=== PATIENT | female | born 1945 | race Caucasian/White ===

== ENCOUNTER → 2019-07-30 12:11 | Outpatient (CLI) | payer OTHER, SELFPAY ==
--- NOTE | ~2019-07-30 | XR_ITS ---
EXAMINATION: XR chest 2V DATE: 07/30/2019 12:37 INDICATION: Cough, COPD TECHNIQUE: Frontal and lateral views of the chest are obtained COMPARISON: 01/20/2017 FINDINGS: There are airspace opacities of the lower lung zones and right midlung zone. There is no pl eural effusion or pneumothorax. The cardiomediastinal silhouette is normal. There is moderate thoraci c spondylosis. The lungs are hyperinflated. IMPRESSION: 1. Airspace opacities of the lung bases and right midlung zone, likely pneumonia. Reviewed, dictated and finalized at location A. IMPRESSION: 1. Airspace opacities of the lung bases and right midlung zone, likely pneumoni a.
== END ==
PROVIDERS: PCP Family Medicine Adolescent Medicine; Visit Provider Internal Medicine Critical Care Medicine
DX: J44.9 Chronic obstructive pulmonary disease, unspecified (principal); R91.8 Other nonspecific abnormal finding of lung field
CPT/HCPCS: 71046

== ENCOUNTER 2019-09-28 13:27 | Inpatient (IN) | payer OTHER, SELFPAY ==
[2019-09-28] VITALS (14 sets, daily range): BP systolic 123–152; BP diastolic 61–87; PULSE 81–96; RESP 18–24; TEMP 37.9–39.2; O2SAT 91–100; BMI 22.1
--- NOTE | ~2019-09-28 | XR_ITS ---
XR chest 1V portable 09/28/2019 14:06 Indication: Weakness. Dyspnea. Procedure: AP portable chest Comparison: Comparison to multiple prior studies sequentially, with oldest reviewed study dated 12/2014. Findings: Borderline heart size. There is chronic scarring of the right mid and lower lung. There are emphysematous changes. No acute focal pneumonia, edema or effusion. No pneumothorax. Impression: 1: No acute cardiopulmonary disease. 2: Emphysema. Reviewed, dictated and finalized at location A. Impression: 1: No acute cardiopulmonary disease. 2: Emphysema.
--- NOTE | 2019-09-28 13:28 | ECG_ITS ---
Measurements Intervals [place] Rate: 93 P: 71 TN: 134 QRS: -40 QRSD: 107 T: 42 QT: 393 QTc: 490 Interpretive Statements SINUS RHYTHM LEFT AXIS DEVIATION CANNOT RULE OUT SEPTAL INFARCT, AGE INDETERMINATE BASELINE ARTIFACT- I, II, AVR, AVL, V1-V6 ABNORMAL ECG Electronically Signed On 09-28-2019 15:25:43 CDT by Michael Mercer D.O.
--- NOTE | 2019-09-28 13:50 | ED.WEAKNESS ---
HPI - Weakness General Chief complaint: Weakness Stated complaint: covid + weakness Time Seen by Provider: 09/28/19 13:44 History of Present Illness HPI Narrative: 74 yo female w/ h/o COPD and know COVID-19 infection presents for SOB. Her is currently hospitalized with COVID-19 so she had outpatient testing done. she was asymptomatic at that time. Over the past day she has become SOB more than baseline and developed a fever. She is not in any distress, but she is concerned that she will be in danger if her synptoms worsen. She is on O2 at 2L by PR at baseline. Related Data Home Medications Medication Instructions Recorded Confirmed Calcium 600 + D(3) 1 cap PO HS 05/10/19 09/28/19 albuterol sulfate 2 puff INHALATION QID PRN 05/10/19 09/28/19 amlodipine [Norvasc] 10 mg PO DAILY 05/10/19 09/28/19 fluticasone propion-salmeterol 1 inh INHALATION Q12H 05/10/19 09/28/19 [Advair Diskus] montelukast [Singulair] 10 mg PO HS 05/10/19 09/28/19 tamoxifen 20 mg PO DAILY 05/10/19 09/28/19 Spiriva with HandiHaler 18 mcg INHALATION DAILY 09/28/19 09/28/19 Allergies Allergy/AdvReac Type Severity Reaction Status Date / Time Sulfa (Sulfonamide Allergy Severe INTERNAL Verified 09/28/19 16:07 Antibiotics) BURNING Review of Systems Review of Systems: All systems reviewed & are unremarkable except as noted in HPI and below Constitutional: Constitutional: Reports fever(s) and Denies weakness ENT: Denies sore throat Cardiovascular: Cardiovascular: Denies chest pain Respiratory: Respiratory: Reports cough, Reports dyspnea and Reports wheezing Gastrointestinal: Gastrointestinal: Denies abdominal pain, Denies nausea and Denies vomiting Genitourinary: Genitourinary: Denies dysuria Neurologic: Denies dizziness and Denies weakness [facility] Past Medical History Medical History Anxiety Breast cancer Left breast 2017 treated with radiation therapy Chronic respiratory failure with hypoxia and hypercapnia Chronic home O2 of 2.5 L COPD (chronic obstructive pulmonary disease) With PFTs in 2003 demonstrating severe obstructive ventilatory defect with acute bronchodilator response Essential hypertension Glaucoma Urinary, incontinence, stress female Surgical History Surgical History History of partial mastectomy of left breast July 2016 Previous section Status post cataract extraction of both eyes with insertion of intraocular lens Family History Family History Sibling COPD (chronic obstructive pulmonary disease) The patient's younger sister is from lung cancer and COPD Cirrhosis Patient's younger brother is of unspecified cancer but also has cirrhosis. Father , In his 80s Arthritis Hardening of the arteries of the heart Mother , In her 80s Hypertension Hardening of the arteries of the heart Social History Social History Social History: Primary care physician: Dr. Jovanny Akins Code status: Modified code no CPR per patient request. She states that if her heart were to stop she is rated go be with God. The patient is okay with a trial of intubation and ventilator support. She is uncertain if she would want tracheostomy. Smoking packs per day: 1.5 Smoking cigarettes per day: 30.0 Years smoked: 40 Smoking pack-years: 60.00 Smoking status: Former smoker Tobacco type: cigarettes Additional smoking assessment comments: She quit smoking around 1999. Alcohol intake: never Substance use: never Living arrangements: with family Additional living arrangements comments: She lives with her of 43 years and 1 of her adult sons. 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 Zoe
[2019-09-28 14:03] LABS: Basophils Percent Auto 0.1 % (0.2-1.2); Hematocrit 38.9 % (37.0-47.0); Hemoglobin 12.2 g/dL (12.0-15.0); Immature Granulocyte Absolute 0.02 K/mm3 (0.00-0.031); Immature Granulocyte Percent A 0.2 % (0-0.5); Immature Platelet Fraction Pct 2.6 % (0.9-11.2); Lymphocytes Percent Auto 3.2 % (18.3-44.2); Mean Corpuscular HGB Conc 31.4 g/dl (32-36); Mean Corpuscular Hemoglobin 29.7 pg (26-34); Mean Corpuscular Volume 94.6 fl (80-100); Mean Platelet Volume 9.8 fl (7.4-10.4); Monocytes Absolute Auto 0.5 K/mm3 (0.1-0.6); Monocytes Percent Auto 5.7 % (2.6-8.5); Neutrophils Absolute Auto 8.6 K/mm3 (1.3-6.7); Neutrophils Percent Auto 90.8 % (45.5-73.1); Platelet Count Result 109 k/mm3 (150-375); Red Blood Count 4.11 M/mm3 (4.2-5.4); Red Cell Distribution Width 13.7 % (11.5-14.5); White Blood Count 9.5 K/mm3 (4.5-10.0)
[2019-09-28 14:11] LABS: Add Urine Microscopic? YES; Appearance Urine Clear (Clear); Bilirubin Urine Negative (Negative); Blood Urine 1+ (Negative); Color Urine Straw (Yellow); Glucose Urine UA Negative (Negative); Ketones Urine Trace mg/dL (Negative); Leukocyte Esterase Ur Negative LEU/UL (Negative); Nitrate Urine Negative (Negative); Protein Urine Negative (Negative); Specific Grav Ur 1.015 (1.001-1.035); Squamous Epithelial Cell Urine Rare /hpf (Few); Urobilinogen Urine Negative mg/dL (<2.0); WBC Urine 0-3 /hpf
[2019-09-28 14:12] LABS: INR 0.9; Prothrombin Time 12.1 Seconds (11.1-14.7)
[2019-09-28 14:13] LABS: Partial Thromboplastin Time 26.5 SECONDS (22.3-36.8)
[2019-09-28 14:20] LABS: Lactic Acid Reflex 0.8 mmol/L (0.7-2.1)
[2019-09-28 14:22] LABS: Alanine Aminotransferase 17 U/L (4-35); Albumin Level 4.1 g/dL (3.5-5.1); Alkaline Phosphatase 53 U/L (38-126); Aspartate Amino Transferase 30 U/L (14-36); Bilirubin,Total 0.2 mg/dL (0.2-1.3); Blood Urea Nitrogen 10 mg/dL (7-17); CRP 2.9 mg/dL (<1.0); Calcium 8.4 mg/dL (8.4-10.2); Carbon Dioxide 38 mmol/L (22-30); Chloride 94 mmol/L (98-107); Estimated CRCL calculation 74 ml/min; Estimated Glomerular Filt Rate > 60; Glucose 113 mg/dL (65-105); Potassium 3.5 mmol/L (3.4-5.0); Sodium 135 mmol/L (137-145)
[2019-09-28 14:54] LABS: D Dimer 1.08 ug/mL (<0.48)
[2019-09-28 14:56] LABS: CRP 2.9 mg/dL (<1.0)
--- NOTE | 2019-09-28 16:52 | ADMGEN ---
This patient, Ritu Liao, was admitted to 3 Med Surg Room 331-01. Patient/family oriented to hospital policies and general routines including ID bracelet, bed and alarms, visiting hours, pain management, procedures, bathroom and other care routines, personal items, smoking policy, room service/diet, and visiting hours. Valuables list has been completed. Information on how to activate the Rapid Response Team has been discussed. Patient/Family are encouraged to report perceived risks to care and to ask questions if they do not understand what they are told or what they should do.
[2019-09-28] MEDS: ACETAMINOPHEN 325 MG TABLET 650 MG PO ×2 (17:28→21:44)
[2019-09-28] MEDS: MONTELUKAST SODIUM 10 MG TABLET PO (21:56)
[2019-09-29] VITALS (17 sets, daily range): BP systolic 121–142; BP diastolic 58–70; PULSE 74–88; RESP 18–20; TEMP 37.2–38.1; O2SAT 93–99
--- NOTE | 2019-09-29 04:13 | PM.IMHP ---
H&P: HPI History of Present Illness Chief complaint: Fever, COVID-19 infection Narrative: From date and time of patient contact 09/29/2019 at 2:15 a.m. Ritu Liao is a 74 year old female with a past medical history of COPD with chronic home O2 of 2.5 L and known positive COVID-19 testing on 09/25/2019 who presented to the ER via EMS on 09/28/2019 due to increasing weakness, shortness of breath and fever. The patient reports her fever has been as high as 102 at home and her temperature was a 102.5? when she arrived to the ER. The patient's had been sick for 10 days with upper respiratory symptoms and had tested positive for COVID-19 on 09/20/2019. The patient reports to me that she does a positive herself on 09/25/2019. The patient's had reported to me had a time had it his admission that he had been concerned his had infection starting at 3 or 4 days after his symptoms. He had reported that her symptoms were fairly mild and she was not having much increased work of breathing and had not been spiking fevers. Unfortunately the patient's was admitted to hospital on 09/27/2019 for COVID-19 and it sounds as if he is the patient's main support. The patient reported that after her was admitted to the hospital she actually started spiking fevers that night. It sounds as if she has a cough that is chronically productive of sputum. But her sputum is currently dark green in color. It is unclear when the patient sputum changed color as the patient keeps mentioning when she was ill back in June. She has noticed increased work of breathing over the last 24-48 hours. She has been having intermittent body aches. She denies any change in the sensation of taste or smell. She has not had any nausea or vomiting. She has had a significant decrease in appetite. She denies any diarrhea. She has been having stress urinary incontinence due to her significant increase in cough. She denies any chest pain. She is becoming more short of breath both at rest and with activity. The patient reports that she has not had increased her home oxygen of 2.5 L. She has been on home oxygen therapy for 20 years. Review of Systems Review of Systems: Narrative: 12 systems were reviewed with pertinent positives and negatives per HPI. Except as documented in the HPI, all other systems were reviewed and are negative. FOR[facility]LY [facility], [facility] Past Medical History Medical History (Updated 09/29/19 @ 04:28 by Magda Harkins DO) Anxiety Breast cancer Left breast 2016 treated with radiation therapy Chronic respiratory failure with hypoxia and hypercapnia Chronic home O2 of 2.5 L COPD (chronic obstructive pulmonary disease) With PFTs in 2003 demonstrating severe obstructive ventilatory defect with acute bronchodilator response Essential hypertension Glaucoma Urinary, incontinence, stress female Surgical History Surgical History (Updated 09/29/19 @ 04:28 by Magda Harkins DO) History of partial mastectomy of left breast July 2016 Previous section Status post cataract extraction of both eyes with insertion of intraocular lens Family History Family History (Updated 09/29/19 @ 04:55 by Magda Harkins DO) Sibling COPD (chronic obstructive pulmonary disease) The patient's younger sister is from lung cancer and COPD Cirrhosis Patient's younger brother is of unspecified cancer but also has cirrhosis. Father , In his 80s Arthritis Hardening of the arteries of the heart Mother , In her 80s Hypertension Hardening of the arteries of the heart Social History Social History (Updated 09/29/19 @ 04:56 by Magda Harkins DO) Social History: Primary care physician: Dr. Jovanny Akins Code status: Modified code no CPR per patient request. She states that if her heart were to stop she is rated go be with God. The patient is okay with a trial of intubation and vent
[2019-09-29 06:57] LABS: Hematocrit 33.3 % (37.0-47.0); Hemoglobin 10.5 g/dL (12.0-15.0); Mean Corpuscular HGB Conc 31.5 g/dl (32-36); Mean Corpuscular Hemoglobin 30.1 pg (26-34); Mean Corpuscular Volume 95.4 fl (80-100); Mean Platelet Volume 9.7 fl (7.4-10.4); Platelet Count Result 89 k/mm3 (150-375); Red Blood Count 3.49 M/mm3 (4.2-5.4); Red Cell Distribution Width 14.1 % (11.5-14.5); White Blood Count 7.5 K/mm3 (4.5-10.0)
[2019-09-29 07:25] LABS: Blood Urea Nitrogen 7 mg/dL (7-17); CRP 16.6 mg/dL (<1.0); Calcium 8.1 mg/dL (8.4-10.2); Carbon Dioxide 39 mmol/L (22-30); Chloride 96 mmol/L (98-107); Estimated CRCL calculation 71 ml/min; Estimated Glomerular Filt Rate > 60; Glucose 84 mg/dL (65-105); Lactate Dehydrogenase 308 U/L (313-618); Potassium 3.4 mmol/L (3.4-5.0); Sodium 135 mmol/L (137-145)
[2019-09-29] MEDS: AMLODIPINE BESYLATE 5 MG TABLET 10 MG PO (08:36)
[2019-09-29] MEDS: TAMOXIFEN CITRATE (*CHEMO) 10 MG TABLET 20 MG PO (08:36)
[2019-09-29] MEDS: ENOXAPARIN 40 MG/0.4 ML SYRINGE SUB-Q (08:37)
[2019-09-29] MEDS: ALBUTEROL SULFATE (*SP) AEROSOL 1 PUFF 6 PUFF INHALATION ×2 (09:45→13:07)
--- NOTE | 2019-09-29 13:47 | PM.CNPUL ---
Assessment and Plan Assessment and plan (1) COVID-19 virus infection: Code(s): U07.1 - COVID-19 Status: Acute Assessment and Plan: Unclear wether positive test is from infection in June or new infection from the past few weeks we now know that RT PCR can stay positive for many weeks after orginal infection. Nonetheless she is doing well and CXR has improved. She is on minimal oxygen. - continue supportive care and monitoring - if oxygen demand increase would encourage moving to negative pressure room in ICU - continue droplet precautions until SARS-CoV-2 is negative X 2 or discharged home in stable condition to self quarantine (2) COPD exacerbation: Code(s): J44.1 - Chronic obstructive pulmonary disease with (acute) exacerbation Status: Acute Assessment and Plan: - check sputum culture for superimposed bacterial infection - I agree with Spiriva and Advair at current doses - agree with avoid nebulized bronchodilators - I'm ok with starting Azithroymcin 500 mg daily for 5 days and Ceftriaxone 1 gm IV daily for 7 days while checking daily EKG - I've ordered daily EKGs for next four days. If any prolongation occurs beyond 500 ms, consider discontinuing Azithromycin - Will also start prednisone 20 mg PO OD for 5 days History of Present Illness History of Present Illness Consult date: 09/29/19 Chief complaint: Fever, COVID-19 infection Narrative: 74 y/o female with COPD who presents after getting a fever of up to 102 at home along with increased dyspnea, cough productive of greenish sputum and chills and finding out her tested positive for SARS-CoV-2 on 09/20/19. She tested positive on 09/27/19 and was admitted yesterday. Her son lives with her and he's had new cough as well but refused to get tested. She originally began to feel sick with cough, dyspnea, wheezing in late June. Her official court reporter order a CXR at the time on 07/30/19 which I viewed myself shows bilateral atypical infiltrates which have actually resolved on yesterdays' CXR actually. She said recovered from her incident in June by late July early August and only started to feel sick again in late August. Review of Systems Review of Systems: All systems reviewed & are unremarkable except as noted in HPI and below PMFSH Past Medical History Medical History (Updated 09/29/19 @ 04:28 by Magda Harkins DO) Anxiety Breast cancer Left breast 2016 treated with radiation therapy Chronic respiratory failure with hypoxia and hypercapnia Chronic home O2 of 2.5 L COPD (chronic obstructive pulmonary disease) With PFTs in 2003 demonstrating severe obstructive ventilatory defect with acute bronchodilator response Essential hypertension Glaucoma Urinary, incontinence, stress female Surgical History Surgical History (Updated 09/29/19 @ 04:28 by Magda Harkins DO) History of partial mastectomy of left breast July 2016 Previous section Status post cataract extraction of both eyes with insertion of intraocular lens Family History Family History (Updated 09/29/19 @ 04:55 by Magda Harkins DO) Sibling COPD (chronic obstructive pulmonary disease) The patient's younger sister is from lung cancer and COPD Cirrhosis Patient's younger brother is of unspecified cancer but also has cirrhosis. Father , In his 80s Arthritis Hardening of the arteries of the heart Mother , In her 80s Hypertension Hardening of the arteries of the heart Social History Social History (Updated 09/29/19 @ 04:56 by Magda Harkins DO) Social History: Primary care physician: Dr. Jovanny Akins Code status: Modified code no CPR per patient request. She states that if her heart were to stop she is rated go be with God. The patient is okay with a trial of intubation and ventilator support. She is uncertain if she would want tracheostomy. Smoking packs per day: 1.5 Smoking c
[2019-09-29] MEDS: predniSONE 20 MG TABLET PO (14:33)
--- NOTE | 2019-09-29 17:18 | PM.IMPN ---
Progress Note: A&P Assessment and Plan (1) COVID-19 virus infection: Code(s): U07.1 - COVID-19 Status: Acute Assessment and Plan: Patient is not a candidate for treatment with azithromycin. Her QTc is 490 Continue supportive care with oxygen and albuterol and Atrovent inhalers Continue Tylenol as needed for fever Air point/droplet precautions. 09/29/19 17:18 Patient is 6 Yo female with history of severe COPD patient presented with complaint of cough fever chills sees found to be positive for COVID-19 patient seen by information systems security officer started the patient on azithromycin and Rocephin possible superimposed bacterial infection with instruction to monitor QT interval well daily with EKG, if the due to enter well close to 500 will stop azithromycin, because of COVID-19 patient is not receiving neb treatment will continue home albuterol inhaler and low-dose of prednisone 20 mg q.day, the patient states is feeling better breathing is also better has any fever or chills currently, will continue to monitor and plan accordingly, in the weight patient is requiring high oxygen will transfer the patient to ICU Her is also hospitalized at this time. (2) COPD exacerbation: Code(s): J44.1 - Chronic obstructive pulmonary disease with (acute) exacerbation Status: Acute Assessment and Plan: Due to COVID-19 viral infection. Patient is not moving much air. Scheduled albuterol inhaler 6 puffs every 6 hours has been ordered as well as a Spiriva inhaler. Is the patient did not have COVID-19 I would like to start on steroid therapy. However and current recommendations are not clear. I will consult pulmonology for further recommendations as to treating COPD exacerbation in the setting of COVID-19. Patient was seen by information systems security officer plan is above Subjective Date/time seen: 09/29/19 17:18 Patient is 6 Yo female with history of severe COPD patient presented with complaint of cough fever chills sees found to be positive for COVID-19 patient seen by information systems security officer started the patient on azithromycin and Rocephin possible superimposed bacterial infection with instruction to monitor QT interval well daily with EKG, if the due to enter well close to 500 will stop azithromycin, because of COVID-19 patient is not receiving neb treatment will continue home albuterol inhaler and low-dose of prednisone 20 mg q.day, the patient states is feeling better breathing is also better has any fever or chills currently, will continue to monitor and plan accordingly, in the weight patient is requiring high oxygen will transfer the patient to ICU Review of Systems Review of Systems: All systems reviewed & are unremarkable except as noted in HPI and below Exam Narrative: Exam Narrative: Patient is comfortable patient was seen in the room but not examine temperature is 99.8? pulse is 83 respiratory is 20 pulse ox is 95% at 2.5 L nasal cannula blood pressure is 135/65 Const: General: comfortable and no acute distress HENMT: General nose exam: Normal nares present Eyes: Sclera: sclerae normal Neck: Other: No retraction Resp: Effort & Inspection: normal respiratory effort GI: Other: Not distant Skin: General skin exam: normal color Neuro: Speech: normal speech Extrem: General: normal to inspection Psych: Affect: Anxious affect present Objective Data Vital Signs Vital Signs: Vital Signs - 24 hr 09/28/19 17:28 09/28/19 18:28 09/28/19 19:30 Temperature 100.4 F H 101.2 F H Pulse Rate Respiratory Rate 24 H Blood Pressure Pulse Oximetry 92 09/28/19 20:00 09/28/19 21:27 09/28/19 21:44 Temperature 100.7 F H Pulse Rate 87 86 Respiratory Rate Blood Pressure Pulse Oximetry 92 09/28/19 21:49 09/28/19 22:44 09/29/19 00:00 Temperature 100.3 F H 100.4 F H Pulse Rate 86 78 Respiratory Rate 20 Blood Pressure 138/84 Pulse Oximetry 92 09/29/19 02:00 09/29/19 04:00 09/29/19 06:0
[2019-09-29] MEDS: ACETAMINOPHEN 325 MG TABLET 650 MG PO (18:36)
[2019-09-29] MEDS: MONTELUKAST SODIUM 10 MG TABLET PO (20:15)
[2019-09-29] MEDS: ALBUTEROL SULFATE (*SP) INHALER 1 PUFF (21:18)
[2019-09-30] VITALS (12 sets, daily range): BP systolic 110–127; BP diastolic 51–74; PULSE 63–80; RESP 16–20; TEMP 36.5–37.1; O2SAT 95–99
[2019-09-30 06:26] LABS: Basophils Percent Auto 0.2 % (0.2-1.2); Hematocrit 34.4 % (37.0-47.0); Hemoglobin 10.8 g/dL (12.0-15.0); Immature Granulocyte Absolute 0.07 K/mm3 (0.00-0.031); Immature Granulocyte Percent A 1.1 % (0-0.5); Lymphocytes Absolute Auto 0.59 K/mm3 (0.9-3.2); Lymphocytes Percent Auto 8.9 % (18.3-44.2); Mean Corpuscular HGB Conc 31.4 g/dl (32-36); Mean Corpuscular Volume 95.6 fl (80-100); Mean Platelet Volume 9.7 fl (7.4-10.4); Monocytes Absolute Auto 0.3 K/mm3 (0.1-0.6); Monocytes Percent Auto 5.1 % (2.6-8.5); Neutrophils Absolute Auto 5.6 K/mm3 (1.3-6.7); Neutrophils Percent Auto 84.7 % (45.5-73.1); Platelet Count Result 95 k/mm3 (150-375); White Blood Count 6.6 K/mm3 (4.5-10.0)
[2019-09-30 07:26] LABS: Alanine Aminotransferase 12 U/L (4-35); Alkaline Phosphatase 44 U/L (38-126); Aspartate Amino Transferase 21 U/L (14-36); Bilirubin,Total 0.1 mg/dL (0.2-1.3); Blood Urea Nitrogen 10 mg/dL (7-17); CRP 21.8 mg/dL (<1.0); Calcium 8.3 mg/dL (8.4-10.2); Carbon Dioxide > 40 mmol/L (22-30); Chloride 95 mmol/L (98-107); Estimated CRCL calculation 71 ml/min; Estimated Glomerular Filt Rate > 60; Glucose 87 mg/dL (65-105); Potassium 3.3 mmol/L (3.4-5.0); Sodium 138 mmol/L (137-145)
--- NOTE | 2019-09-30 08:00 | ECG_ITS ---
Measurements Intervals [place] Rate: 80 P: 75 RI: 137 QRS: 13 QRSD: 97 T: 38 QT: 368 QTc: 426 Interpretive Statements SINUS RHYTHM CANNOT RULE OUT SEPTAL INFARCT, AGE INDETERMINATE BASELINE ARTIFACT- I, II, AVR, AVL, AVF, V1-V4 ABNORMAL ECG Electronically Signed On 09-30-2019 17:46:15 CDT by Michael Mercer D.O.
[2019-09-30] MEDS: POTASSIUM CHLORIDE 20 MEQ TABLET 40 MEQ PO (09:01)
[2019-09-30] MEDS: AMLODIPINE BESYLATE 5 MG TABLET 10 MG PO (09:02)
[2019-09-30] MEDS: predniSONE 20 MG TABLET PO (09:03)
[2019-09-30] MEDS: TAMOXIFEN CITRATE (*CHEMO) 10 MG TABLET 20 MG PO (09:03)
--- NOTE | 2019-09-30 17:53 | PM.PNPUL ---
Progress Note: A&P Assessment and Plan (1) COVID-19 virus infection: Code(s): U07.1 - COVID-19 Status: Acute Assessment and Plan: Unclear wether positive test is from infection in June or new infection from the past few weeks we now know that RT PCR can stay positive for many weeks after orginal infection. Nonetheless she is doing well and CXR has improved. She is on minimal oxygen 2.5 L/min which is what she uses at home. - continue supportive care and monitoring - if oxygen demand increase would encourage moving to negative pressure room in ICU - continue droplet precautions until SARS-CoV-2 is negative X 2 or discharged home in stable condition to self quarantine (2) COPD exacerbation: Code(s): J44.1 - Chronic obstructive pulmonary disease with (acute) exacerbation Status: Acute Assessment and Plan: - check sputum culture for superimposed bacterial infection - I agree with Spiriva and Advair at current doses - agree with avoid nebulized bronchodilators - She is on Azithroymcin 500 mg daily for 5 days and Ceftriaxone 1 gm IV daily for 7 days while checking daily EKG - She has daily EKGs for four days. If any prolongation occurs beyond 500 ms, consider discontinuing Azithromycin - She is also on prednisone 20 mg PO daily for 5 days Subjective Date/time seen: 09/30/19 17:53 This 74 yo female is seen in follow up for COPD exacerbation and a (+) COVID test which may reflect prolonged positive test results from her infection in June. She was sick in Jun with a CXR showing bilateral infiltrates. Her COVID test was September 24 at [facility] in [place] while she was asymptomatic, and she wanted to be tested as her was sick. She is coughing with yellow sputum. She says that she has decreased the amount of secretions today, and does not think that she needs a COrnet valve to use here. She has an Acapella at home. Review of Systems Review of Systems: All systems reviewed & are unremarkable except as noted in HPI and below Exam Const: General: comfortable and no acute distress Eyes: General: appearance normal, both eyes and all related structures Neck: Neck: supple and no JVD Chest: Chest palpation & inspection: other (hyperinflated) Resp: Auscultation: no crackles, no rhonchi, no wheezes and diminished lung sounds Cardio: Rate: regular rate Rhythm: regular rhythm Heart sounds: no murmurs GI: Auscultation: normal bowel sounds Skin: General skin exam: normal color and no rashes or lesions noted Neuro: Speech: normal speech Extrem: General: normal to inspection, no edema and no pedal edema Psych: Mental Status: mental status grossly normal Affect: normal affect Objective Data Vital Signs Vital Signs: Vital Signs - 24 hr 09/29/19 18:00 09/29/19 18:36 09/29/19 19:36 Temperature 38.1 C H 38.1 C H 37.2 C Pulse Rate 82 Respiratory Rate 18 Blood Pressure 121/58 L Pulse Oximetry 93 09/29/19 20:00 09/29/19 21:17 09/29/19 22:00 Temperature 37.2 C Pulse Rate 79 82 Respiratory Rate 20 Blood Pressure 126/70 Pulse Oximetry 95 93 09/30/19 00:00 09/30/19 02:00 09/30/19 04:00 Temperature 36.8 C Pulse Rate 63 75 63 Respiratory Rate 20 Blood Pressure 124/65 Pulse Oximetry 95 09/30/19 06:00 09/30/19 08:00 09/30/19 10:00 Temperature 36.9 C 37.1 C Pulse Rate 68 67 77 Respiratory Rate 20 18 Blood Pressure 123/62 126/74 Pulse Oximetry 98 99 09/30/19 12:00 09/30/19 14:00 09/30/19 16:00 Temperature 37.1 C Pulse Rate 77 80 77 Respiratory Rate 18 Blood Pressure 127/59 L Pulse Oximetry 98 Intake/Output Intake/Output: Intake & Output 09/27/19 09/28/19 09/29/19 09/30/19 23:59 23:59 23:59 23:59 Intake Total 200 1590 1290 Output Total 1500 800 Balance 200 90 490 Meds/Results Medications: Active Medications Generic Name Dose Route Start Last Admin Trade Name Freq PRN Reason Stop Dose Admin Acetaminophen 650
--- NOTE | 2019-09-30 18:33 | PM.IMPN ---
Progress Note: A&P Assessment and Plan (1) COVID-19 virus infection: Code(s): U07.1 - COVID-19 Status: Acute Assessment and Plan: Patient is not a candidate for treatment with azithromycin. Her QTc is 490 Continue supportive care with oxygen and albuterol and Atrovent inhalers Continue Tylenol as needed for fever Air point/droplet precautions. 09/29/19 17:18 09/30/19 18:33 Patient is 6 Yo female with history of severe COPD patient presented with complaint of cough fever chills shes found to be positive for COVID-19 patient seen by manager food started the patient on azithromycin and Rocephin possible superimposed bacterial infection with instruction to monitor QT interval well daily with EKG, if the qt interval well close to 500 will stop azithromycin, because of COVID-19 patient is not receiving neb treatment will continue home albuterol inhaler and low-dose of prednisone 20 mg q.day, the patient states is feeling better breathing is also better has any fever or chills currently, will continue to monitor and plan accordingly, in the weight patient is requiring high oxygen will transfer the patient to ICU, currently patient is not requiring any more oxygen than she has been 2.5 L. Her is also hospitalized at this time. (2) COPD exacerbation: Code(s): J44.1 - Chronic obstructive pulmonary disease with (acute) exacerbation Status: Acute Assessment and Plan: Due to COVID-19 viral infection. Patient is not moving much air. Scheduled albuterol inhaler 6 puffs every 6 hours has been ordered as well as a Spiriva inhaler. Is the patient did not have COVID-19 I would like to start on steroid therapy. However and current recommendations are not clear. I will consult pulmonology for further recommendations as to treating COPD exacerbation in the setting of COVID-19. Patient was seen by manager food plan is above Subjective Date/time seen: 09/30/19 18:33 Patient is 6 Yo female with history of severe COPD patient presented with complaint of cough fever chills shes found to be positive for COVID-19 patient seen by manager food started the patient on azithromycin and Rocephin possible superimposed bacterial infection with instruction to monitor QT interval well daily with EKG, if the qt interval well close to 500 will stop azithromycin, because of COVID-19 patient is not receiving neb treatment will continue home albuterol inhaler and low-dose of prednisone 20 mg q.day, the patient states is feeling better breathing is also better has any fever or chills currently, will continue to monitor and plan accordingly, in the weight patient is requiring high oxygen will transfer the patient to ICU, currently patient is not requiring any more oxygen than she has been 2.5 L. Her is also hospitalized at this time. Review of Systems Review of Systems: All systems reviewed & are unremarkable except as noted in HPI and below Exam Narrative: Exam Narrative: Patient is comfortable patient was seen in the room but not examine temperature is 98.6 pulse is 77 respiratory is 18 pulse ox is 98% at 2.5 L nasal cannula blood pressure is 110/51 Const: General: comfortable and no acute distress HENMT: General nose exam: Normal nares present Eyes: Sclera: sclerae normal Neck: Other: No retraction Resp: Effort & Inspection: normal respiratory effort GI: Other: Not distant Skin: General skin exam: normal color Neuro: Speech: normal speech Extrem: General: normal to inspection Psych: Affect: Anxious affect present Objective Data Vital Signs Vital Signs: Vital Signs - 24 hr 09/29/19 18:36 09/29/19 19:36 09/29/19 20:00 Temperature 100.5 F H 98.9 F Pulse Rate 79 Respiratory Rate Blood Pressure Pulse Oximetry 09/29/19 21:17 09/29/19 22:00 09/30/19 00:00 Temperature 98.9 F Pulse Rate 82 63 Respiratory Rate 20 Blood Pressure 126/70 Pulse Oximetry 95 93 06
[2019-09-30] MEDS: MONTELUKAST SODIUM 10 MG TABLET PO (20:19)
[2019-10-01] VITALS (14 sets, daily range): BP systolic 121–144; BP diastolic 60–76; PULSE 63–81; RESP 18–20; TEMP 36.6–37.4; O2SAT 94–100
[2019-10-01 06:11] LABS: Basophils Percent Auto 0.2 % (0.2-1.2); Hematocrit 33.9 % (37.0-47.0); Hemoglobin 10.6 g/dL (12.0-15.0); Immature Granulocyte Absolute 0.02 K/mm3 (0.00-0.031); Immature Granulocyte Percent A 0.4 % (0-0.5); Lymphocytes Absolute Auto 0.64 K/mm3 (0.9-3.2); Lymphocytes Percent Auto 13.3 % (18.3-44.2); Mean Corpuscular HGB Conc 31.3 g/dl (32-36); Mean Platelet Volume 9.9 fl (7.4-10.4); Monocytes Absolute Auto 0.3 K/mm3 (0.1-0.6); Monocytes Percent Auto 5.4 % (2.6-8.5); Neutrophils Absolute Auto 3.9 K/mm3 (1.3-6.7); Neutrophils Percent Auto 80.7 % (45.5-73.1); Platelet Count Result 110 k/mm3 (150-375); Red Blood Count 3.53 M/mm3 (4.2-5.4); Red Cell Distribution Width 14.1 % (11.5-14.5); White Blood Count 4.8 K/mm3 (4.5-10.0)
[2019-10-01] MEDS: ACETAMINOPHEN 325 MG TABLET 650 MG PO ×2 (06:21→14:39)
[2019-10-01 06:37] LABS: Alanine Aminotransferase 12 U/L (4-35); Alkaline Phosphatase 47 U/L (38-126); Aspartate Amino Transferase 20 U/L (14-36); Bilirubin,Total < 0.1 mg/dL (0.2-1.3); Blood Urea Nitrogen 9 mg/dL (7-17); Calcium 8.4 mg/dL (8.4-10.2); Carbon Dioxide > 40 mmol/L (22-30); Chloride 96 mmol/L (98-107); Estimated CRCL calculation 71 ml/min; Estimated Glomerular Filt Rate > 60; Glucose 69 mg/dL (65-105); Potassium 3.7 mmol/L (3.4-5.0); Sodium 137 mmol/L (137-145)
[2019-10-01 07:19] LABS: CRP 13.3 mg/dL (<1.0)
--- NOTE | 2019-10-01 08:00 | ECG_ITS ---
Measurements Intervals [place] Rate: 54 P: 69 HI: 139 QRS: 4 QRSD: 98 T: 31 QT: 365 QTc: 346 Interpretive Statements SINUS BRADYCARDIA WITH MARKED RHYTHM IRREGULARITY, POSSIBLE NON-CONDUCTED PAC, SA BLOCK, AV BLOCK, OR SINUS PAUSE DELAYED PRECORDIAL R/S TRANSITION BORDERLINE T WAVE ABNORMALITY- ANTEROLATERAL LEADS BASELINE ARTIFACT- I, III, AVR, AVL, V1-V6 ABNORMAL ECG Electronically Signed On 10-01-2019 9:56:09 CDT by Michael Mercer D.O.
[2019-10-01] MEDS: TAMOXIFEN CITRATE (*CHEMO) 10 MG TABLET 20 MG PO (08:43)
[2019-10-01] MEDS: ENOXAPARIN 40 MG/0.4 ML SYRINGE SUB-Q (08:43)
[2019-10-01] MEDS: AMLODIPINE BESYLATE 5 MG TABLET 10 MG PO (08:43)
[2019-10-01] MEDS: predniSONE 20 MG TABLET PO (08:43)
--- NOTE | 2019-10-01 17:59 | PM.PNPUL ---
Progress Note: A&P Assessment and Plan (1) COVID-19 virus infection: Code(s): U07.1 - COVID-19 Status: Acute Assessment and Plan: Unclear whether positive test is from infection in June or new infection from the past few weeks we now know that RT PCR can stay positive for many weeks after original infection. Doing well, CXR has improved. She is on minimal oxygen 2.5 L/min which is what she uses at home. - continue supportive care and monitoring - if oxygen demand increase would encourage moving to negative pressure room in ICU - continue droplet precautions until SARS-CoV-2 is negative X 2 or discharged home in stable condition to self quarantine (2) COPD exacerbation: Code(s): J44.1 - Chronic obstructive pulmonary disease with (acute) exacerbation Status: Acute Assessment and Plan: - now growing Pseudomonas from admission sputum. Zosyn added 10/01/2019. - Spiriva and Advair at current doses - agree with avoid nebulized bronchodilators - She is on Azithroymcin 500 mg daily for 5 days and Ceftriaxone 1 gm IV daily for 7 days while checking daily EKG - She has daily EKGs for four days. If any prolongation occurs beyond 500 ms, consider discontinuing Azithromycin - She is also on prednisone 20 mg PO daily for 5 days Subjective Date/time seen: 10/01/19 17:59 This 74 yo female is seen in follow up for COPD exacerbation with COVID (+) She is growing Pseudomonas in her sputum from sample on this admission. She is coughing with smaller amounts of thick off color thick yellow mucoid sputum. Changed to Zosyn to cover this while sensitivities are pending. Her is requiring a little more O2 today, per the nurse who has both of them as patients. Review of Systems Review of Systems: All systems reviewed & are unremarkable except as noted in HPI and below Exam Const: General: comfortable and no acute distress Eyes: General: appearance normal, both eyes and all related structures Chest: Chest palpation & inspection: other (hyperinflated) Resp: Auscultation: no crackles, no rhonchi, no wheezes and diminished lung sounds Cardio: Rate: regular rate Rhythm: regular rhythm Heart sounds: no murmurs GI: Auscultation: normal bowel sounds Skin: General skin exam: normal color and no rashes or lesions noted Neuro: Speech: normal speech Extrem: General: normal to inspection, no edema and no pedal edema Psych: Mental Status: mental status grossly normal Objective Data Vital Signs Vital Signs: Vital Signs - 24 hr 09/30/19 18:00 09/30/19 20:00 09/30/19 22:00 Temperature 37.0 C 36.5 C Pulse Rate 77 68 67 Respiratory Rate 18 16 Blood Pressure 110/51 L 127/55 L Pulse Oximetry 98 97 10/01/19 00:00 10/01/19 02:00 10/01/19 04:00 Temperature 36.8 C Pulse Rate 76 74 63 Respiratory Rate 18 Blood Pressure 139/60 Pulse Oximetry 97 10/01/19 04:18 10/01/19 06:00 10/01/19 06:21 Temperature 37.4 C 37.4 C Pulse Rate 72 Respiratory Rate 20 Blood Pressure 129/76 Pulse Oximetry 99 96 10/01/19 08:00 10/01/19 10:20 10/01/19 12:00 Temperature 37.3 C Pulse Rate 70 80 81 Respiratory Rate 20 Blood Pressure 128/76 Pulse Oximetry 98 94 10/01/19 14:00 10/01/19 16:00 10/01/19 17:17 Temperature 37.1 C Pulse Rate 79 75 Respiratory Rate 20 Blood Pressure 121/61 Pulse Oximetry 100 95 Intake/Output Intake/Output: Intake & Output 09/28/19 09/29/19 09/30/19 10/01/19 23:59 23:59 23:59 23:59 Intake Total 200 1590 1840 1430 Output Total 1500 1200 1400 Balance 200 90 640 30 Meds/Results Medications: Active Medications Generic Name Dose Route Start Last Admin Trade Name Freq PRN Reason Stop Dose Admin Acetaminophen 650 mg 09/28/19 15:56 10/01/19 14:39 Tylenol Tablet PO 650 mg Q4H PRN Administration Mild Pain (1-3) or Fever Albuterol 4 puff 09/29/19 13:44 Proventil Hfa INHALATION QIDRT PRN dyspnea
--- NOTE | 2019-10-01 18:10 | PM.IMPN ---
Progress Note: A&P Assessment and Plan (1) COVID-19 virus infection: Code(s): U07.1 - COVID-19 Status: Acute Assessment and Plan: Patient is on oxygen iv zithromycin and prednisone, albuterol and advair Continue supportive care Continue Tylenol as needed for fever Improving seen admission Possible discharge soon Awaiting sputum cultures, BC negative to date (2) COPD exacerbation: Code(s): J44.1 - Chronic obstructive pulmonary disease with (acute) exacerbation Status: Acute Assessment and Plan: Due to COVID-19 viral infection. Patient was seen by ice cream maker plan is above Subjective Date/time seen: 10/01/19 18:10 Interval history: 74 year oldfemale with history of severe COPD patient presented with complaint of cough fever chills shes found to be positive for COVID-19 patient seen by ice cream maker started the patient on azithromycin and Rocephin possible superimposed bacterial infection. Pt is improving since admission. Discussed case with DR Adler who is also following her. Pt already seen by her today, As per specialist pt can be discharged soon, still awaiting sputum culture results. Review of Systems Review of Systems: All systems reviewed & are unremarkable except as noted in HPI and below Constitutional: Constitutional: Denies chills Respiratory: Respiratory: Reports cough and Denies dyspnea Comments: Mild cough Exam Narrative: Exam Narrative: Temp Pulse Resp BP Pulse Ox 37.1 C 75 20 121/61 95 10/01/19 14:00 10/01/19 16:00 10/01/19 14:00 10/01/19 14:00 10/01/19 17:17 Vitals are stable Pt is on 2.5 l of oxygen which is her baseline Pt not in any respiratory distress as per pulmologist Objective Data Vital Signs Vital Signs: Vital Signs - 24 hr 09/30/19 20:00 09/30/19 22:00 10/01/19 00:00 Temperature 36.5 C Pulse Rate 68 67 76 Respiratory Rate 16 Blood Pressure 127/55 L Pulse Oximetry 97 10/01/19 02:00 10/01/19 04:00 10/01/19 04:18 Temperature 36.8 C Pulse Rate 74 63 Respiratory Rate 18 Blood Pressure 139/60 Pulse Oximetry 97 99 10/01/19 06:00 10/01/19 06:21 10/01/19 08:00 Temperature 37.4 C 37.4 C Pulse Rate 72 70 Respiratory Rate 20 Blood Pressure 129/76 Pulse Oximetry 96 10/01/19 10:20 10/01/19 12:00 10/01/19 14:00 Temperature 37.3 C 37.1 C Pulse Rate 80 81 79 Respiratory Rate 20 20 Blood Pressure 128/76 121/61 Pulse Oximetry 98 94 100 10/01/19 16:00 10/01/19 17:17 Temperature Pulse Rate 75 Respiratory Rate Blood Pressure Pulse Oximetry 95 Intake/Output Intake/Output: Intake & Output 09/28/19 09/29/19 09/30/19 10/01/19 23:59 23:59 23:59 23:59 Intake Total 200 1590 1840 1430 Output Total 1500 1200 1400 Balance 200 90 640 30 Meds/Results Medications: Active Medications Generic Name Dose Route Start Last Admin Trade Name Freq PRN Reason Stop Dose Admin Acetaminophen 650 mg 09/28/19 15:56 10/01/19 14:39 Tylenol Tablet PO 650 mg Q4H PRN Administration Mild Pain (1-3) or Fever Albuterol 4 puff 09/29/19 13:44 Proventil Hfa INHALATION QIDRT PRN dyspnea Amlodipine Besylate 10 mg 09/29/19 09:00 10/01/19 08:43 Norvasc PO 10 mg DAILY DONNA Administration Calcium Carbonate 500 mg 09/28/19 21:20 09/30/19 20:19 Os-Ronnie 500 +D Tablet PO 500 mg HS DONNA Administration Enoxaparin Sodium 40 mg 09/29/19 09:00 10/01/19 08:43 Lovenox SUB-Q 40 mg DAILY DONNA Administration Azithromycin 500 mg in 250 mls @ 250 mls/hr 09/29/19 14:00 10/01/19 14:39 Zithromax IVPB 250 mls/hr Q24H DONNA Administration Montelukast Sodium 10 mg 09/28/19 21:15 09/30/19 20:19 Singulair PO 10 mg HS DONNA Administration Prednisone 20 mg 09/29/19 13:50 10/01/19 08:43
[2019-10-01] MEDS: MONTELUKAST SODIUM 10 MG TABLET PO (21:09)
--- NOTE | 2019-10-01 23:31 | PC.NURSE ---
Notified of change in 's condition requiring him to be transferred to ICU. Verbalized understanding, emotional support given.
[2019-10-02] VITALS (10 sets, daily range): BP systolic 126–147; BP diastolic 65–80; PULSE 62–99; RESP 18–20; TEMP 36.6–37.1; O2SAT 82–100
--- NOTE | 2019-10-02 04:48 | PCRCNOTE ---
Window of time for administration has passed. See next scheduled administration.
[2019-10-02 06:03] LABS: Basophils Percent Auto 0.3 % (0.2-1.2); Hematocrit 35.2 % (37.0-47.0); Hemoglobin 10.8 g/dL (12.0-15.0); Immature Granulocyte Absolute 0.02 K/mm3 (0.00-0.031); Immature Granulocyte Percent A 0.6 % (0-0.5); Lymphocytes Percent Auto 16.5 % (18.3-44.2); Mean Corpuscular HGB Conc 30.7 g/dl (32-36); Mean Corpuscular Hemoglobin 29.3 pg (26-34); Mean Corpuscular Volume 95.4 fl (80-100); Mean Platelet Volume 9.6 fl (7.4-10.4); Monocytes Absolute Auto 0.3 K/mm3 (0.1-0.6); Monocytes Percent Auto 8.3 % (2.6-8.5); Neutrophils Absolute Auto 2.7 K/mm3 (1.3-6.7); Neutrophils Percent Auto 74.3 % (45.5-73.1); Platelet Count Result 119 k/mm3 (150-375); Red Blood Count 3.69 M/mm3 (4.2-5.4); Red Cell Distribution Width 13.9 % (11.5-14.5); White Blood Count 3.6 K/mm3 (4.5-10.0)
[2019-10-02 06:22] LABS: Alanine Aminotransferase 17 U/L (4-35); Alkaline Phosphatase 48 U/L (38-126); Aspartate Amino Transferase 30 U/L (14-36); Bilirubin,Total 0.1 mg/dL (0.2-1.3); Blood Urea Nitrogen 11 mg/dL (7-17); CRP 6.1 mg/dL (<1.0); Calcium 8.2 mg/dL (8.4-10.2); Carbon Dioxide > 40 mmol/L (22-30); Chloride 95 mmol/L (98-107); Estimated CRCL calculation 58 ml/min; Estimated Glomerular Filt Rate > 60; Glucose 91 mg/dL (65-105); Potassium 3.6 mmol/L (3.4-5.0); Sodium 138 mmol/L (137-145)
--- NOTE | 2019-10-02 08:00 | ECG_ITS ---
Measurements Intervals [place] Rate: 77 P: 63 PA: 135 QRS: 3 QRSD: 101 T: 32 QT: 390 QTc: 443 Interpretive Statements SINUS RHYTHM ATRIAL PREMATURE COMPLEX CANNOT RULE OUT SEPTAL INFARCT, AGE INDETERMINATE BORDERLINE T WAVE ABNORMALITY- ANTERIOR LEADS ABNORMAL ECG Electronically Signed On 10-02-2019 12:41:53 CDT by Michael Mercer D.O.
[2019-10-02] MEDS: predniSONE 20 MG TABLET PO (08:16)
[2019-10-02] MEDS: AMLODIPINE BESYLATE 5 MG TABLET 10 MG PO (08:16)
[2019-10-02] MEDS: TAMOXIFEN CITRATE (*CHEMO) 10 MG TABLET 20 MG PO (08:17)
[2019-10-02] MEDS: ENOXAPARIN 40 MG/0.4 ML SYRINGE SUB-Q (09:44)
--- NOTE | 2019-10-02 15:29 | PM.PNPUL ---
Progress Note: A&P Assessment and Plan (1) COVID-19 virus infection: Code(s): U07.1 - COVID-19 Status: Acute Assessment and Plan: - Unclear whether positive test is from infection in June or new infection from the past few weeks. - reverse transcriptase PCR can stay positive for many weeks after original infection. - improved overall; CXR has improved 09/27. She is on her baseline oxygen 2.5 L/min, which she uses at home, and has been on O2 20 years total. - continue droplet precautions until discharge. Her friend is going by her house to get portable O2 tank for the rifde home. - her field operations farm manager Dr Min retired, so she will follow up with our office for post hospital care, general pulmonary care, O2 management. - ok to go home today from pulmonary standpoint. \ - follow up virtual visit in a week. (2) COPD exacerbation: Code(s): J44.1 - Chronic obstructive pulmonary disease with (acute) exacerbation Status: Acute Assessment and Plan: - now with light growth of Pseudomonas from admission sputum. Zosyn added 10/01/2019. This organism is sensitive to everything tested. This may be colonization or an additional contributor to her decompensation. It is reasonable to treat for 5 days with Levaquin 500 mg for Pseudomonas bronchitis. -continue Spiriva and Advair at current doses - agree with avoid nebulized bronchodilators - She is Zosyn started last night for Pseudomonas, light growth in sputum. Azithromycin and ceftriaxone were cancelled. Can go home on Levaquin 500 mg for 3 more days. - She is also on prednisone 20 mg PO daily for 5 days, ending tomorrow. She is not wheezing, so longer taper is not required. Subjective Date/time seen: 10/02/19 15:29 This 74 yo female is seen in follow up for COPD exacerbation with COVID (+) testing. She has light growth of Pseudomonas in her sputum from sample on this admission. She is coughing less, has less sputum, on stable amounts of O2 , and started Zosyn last night to cover this. Sensitivities show that this strain is pansensitive. She feels good, is less short of breath, is eating well. Her deteriorated last night, had to go to the ICU for hypoxemia, required 10 L/min, now is on room air, so may have had mucus plugging. Review of Systems Review of Systems: All systems reviewed & are unremarkable except as noted in HPI and below Exam Const: General: comfortable and no acute distress Eyes: General: appearance normal, both eyes and all related structures Neck: Neck: supple and no JVD Chest: Chest palpation & inspection: other (hyperinflated) Resp: Auscultation: no crackles, no rhonchi, no wheezes and diminished lung sounds Cardio: Rate: regular rate Rhythm: regular rhythm Heart sounds: no murmurs GI: Auscultation: normal bowel sounds Skin: General skin exam: normal color and no rashes or lesions noted Neuro: Speech: normal speech Extrem: General: normal to inspection, no edema and no pedal edema Psych: Mental Status: mental status grossly normal Affect: normal affect Objective Data Vital Signs Vital Signs: Vital Signs - 24 hr 10/01/19 16:00 10/01/19 17:17 10/01/19 20:00 Temperature Pulse Rate 75 75 Respiratory Rate Blood Pressure Pulse Oximetry 95 10/01/19 22:00 10/02/19 00:00 10/02/19 02:00 Temperature 36.6 C 36.6 C Pulse Rate 75 63 68 Respiratory Rate 20 20 Blood Pressure 144/64 H 133/65 Pulse Oximetry 98 98 10/02/19 04:00 10/02/19 06:00 10/02/19 08:00 Temperature 37.1 C Pulse Rate 66 69 90 Respiratory Rate 20 Blood Pressure 126/74 Pulse Oximetry 98 10/02/19 09:11 10/02/19 10:00 10/02/19 12:00 Temperature 36.9 C Pulse Rate 83 80 Respiratory Rate 20 Blood Pressure 147/70 H Pulse Oximetry 97 98 96 Intake/Output Intake/Output: Intake & Output 09/29/19 09/30/19 10/01/19 10/02/19 23:59 23:59 23:59 23:59 Intake Total 1590 1840 1430 890 Output Total 1500
--- NOTE | 2019-10-02 16:55 | PM.DS ---
DS: Admitting Diagnosis Admitting Diagnosis Admitting Diagnosis: COVID-19 DS: Discharge Diagnosis Discharge Diagnosis (1) COVID-19 virus infection: Code(s): U07.1 - COVID-19 Status: Acute Assessment and Plan: Patient was treated on oxygen oral zithromycin, iv rocephin and prednisone, albuterol and advair for 3 days. Pt had daily EKG s to check for QT prolongation. And tylenol for fever Much improved seen admission Sputum grew light pseudomonas yesterday pt given iv zosyn for one day. Bcx negative to date. Pt is back to her baseline ok for discharge as per pulmology With oral levaquin for 3 days and one day of prednisone Follow up with Dr Adler informed about discharge son at home that can take care of her. (2) COPD exacerbation: Code(s): J44.1 - Chronic obstructive pulmonary disease with (acute) exacerbation Status: Acute Assessment and Plan: Due to COVID-19 viral infection. Patient was seen by rubber stamp assembler plan is as above DS: Summary Time Spent with Patient Time attestation: Total time spent providing and/or coordinating discharge services:20 minutes on day of discharge Exam Narrative: Exam Narrative: Temp Pulse Resp BP Pulse Ox 37.1 C 75 20 121/61 95 10/01/19 14:00 10/01/19 16:00 10/01/19 14:00 10/01/19 14:00 10/01/19 17:17 Vitals are stable Pt is on 2.5 l of oxygen which is her baseline Pt is stable as per pulmologist DS: Data Data Completed and Pending Labs on day of discharge: Labs from last 24 hours 10/02/19 10/02/19 05:46 05:46 WBC 3.6 L RBC 3.69 L Hgb 10.8 L Hct 35.2 L MCV 95.4 MCH 29.3 MCHC 30.7 L RDW 13.9 Plt Count 119 L MPV 9.6 Immature Gran % (Auto) 0.6 H Neut % (Auto) 74.3 H Lymph % (Auto) 16.5 L Becker % (Auto) 8.3 Eos % (Auto) 0.0 Baso % (Auto) 0.3 Lymph # (Auto) 0.60 L Becker # (Auto) 0.3 Eos # (Auto) 0.0 Baso # (Auto) 0.0 Abs Immat Gran (auto) 0.02 Absolute Neuts (auto) 2.7 Absolute Nucleated RBC 0.0 Nucleated RBC % 0.0 Sodium 138 Potassium 3.6 Chloride 95 L Carbon Dioxide > 40 H BUN 11 Creatinine 0.50 L Estim Creat Clear Calc 58 Estimated GFR > 60 Glucose 91 Calcium 8.2 L Total Bilirubin 0.1 L AST 30 ALT 17 Alkaline Phosphatase 48 C-Reactive Protein 6.1 H Total Protein 6.0 L Albumin 3.0 L Preliminary micro results at discharge 09/28/19 13:50 Blood Culture - Preliminary Blood 09/28/19 13:49 Blood Culture - Preliminary Blood Discharge Plan Discharge Attending physician on discharge: Sara Benitez Consulting providers: Jhony Lerner Discharging Clinician: Sara Benitez Anticipated Discharge Date/Time: 10/02/19 16:15 Patient Disposition: Home, Self-Care Activity: as tolerated Diet: heart healthy Discharge Instructions: Follow up with DR Adler after self quarantine for 14-21days. Patient Instructions: Antibiotic Form, COVID-19 (Coronavirus Disease 2019) (DC), COVID-19: Slow the Coronavirus Spread (DC) Stand Alone Forms: General Discharge Information Follow-up/Referrals: Jacqueline Adler MD [Physician] - Discharge Medications: New prednisone 20 mg Tablet 20 mg PO DAILY@0800 1 Days Qty: 1 RF: 0 albuterol sulfate [Proventil HFA] 90 mcg/actuation Hfa Aerosol Inhaler 4 puff inhalation QIDRT PRN (Reason: dyspnea) Qty: 1 RF: 0 levofloxacin [Levaquin] 500 mg tablet 500 mg PO DAILY Qty: 3 RF: 0 Continued fluticasone propion-salmeterol [Advair Diskus] 250-50 mcg/dose Blister With Device 1 inh INHALATION Q12H RF: 0 amlodipine [Norvasc] 10 mg Tablet 10 mg PO DAILY RF: 0 montelukast [Singulair] 10 mg Tablet 10 mg PO HS RF: 0 albuterol sulfate 90 mcg/actuation Hfa Aerosol Inhale
== END 2019-10-02 18:10 | disposition home or self-care (01) | DRG 178 ==
LOC: ANHED 15:02 → ANH3MEDSUR 16:28
PROVIDERS: Internal Medicine; Admitting Provider Family Medicine; Emergency Provider Emergency Medicine; PCP Family Medicine Adolescent Medicine; Visit Provider Family Medicine
DX: U07.1 COVID-19 (principal); J44.1 Chronic obstructive pulmonary disease with (acute) exacerbation; J44.0 Chronic obstructive pulmonary disease with (acute) lower respiratory infection; J96.11 Chronic respiratory failure with hypoxia; J96.12 Chronic respiratory failure with hypercapnia; J20.8 Acute bronchitis due to other specified organisms; B96.5 Pseudomonas (aeruginosa) (mallei) (pseudomallei) as the cause of diseases classified elsewhere; I10 Essential (primary) hypertension; H40.9 Unspecified glaucoma; N39.3 Stress incontinence (female) (male); Z99.81 Dependence on supplemental oxygen; Z85.3 Personal history of malignant neoplasm of breast; Z98.42 Cataract extraction status, left eye; Z98.41 Cataract extraction status, right eye; Z87.891 Personal history of nicotine dependence
CPT/HCPCS: 36415; 71045; 80048; 80053; 81001; 82728; 83605; 83615; 84145; 85025; 85027; 85055; 85380; 85610; 85730; 86140; 87040; 87070; 87077; 87186; 87205; 93005; 94640; 96372; 99285; A9270; G0378; J0456; J0696; J1650; J2543; J7512

== ENCOUNTER 2020-03-04 13:35 | Emergency (ER) | payer OTHER, SELFPAY ==
--- NOTE | ~2020-03-04 | XR_ITS ---
EXAMINATION: XR chest 2V EXAM DATE: 03/04/2020 14:32 INDICATION: Shortness of breath. TECHNIQUE: Frontal and lateral projections of the chest obtained and reviewed. Comparison is made to prior examination from 09/28/2019. FINDINGS: There is abnormal bilateral infrahilar reticulation, most likely chronic interstitial lung disease, but it is more pronounced than on prior study, could be superimposed acute edema or less li ofelia infectious process. The heart is normal in size, however the lungs are severely chronically hype rinflated. There is no pneumothorax suspected. There is chronic pleural blunting, but there may be musa perimposed small subpulmonic pleural effusions. There are no osseous abnormalities identified. IMPRESSION: 1. Abnormal reticulation could be acute edema on chronic interstitial lung disease. 2. Possible small pleural effusions. 3. Chronic severe hyperinflation. Reviewed, dictated and finalized at location B. N FOREMAN/SUPERINTENDANT IMPRESSION: 1. Abnormal reticulation could be acute edema on chronic interstitial lung dis ease. 2. Possible small pleural effusions. 3. Chronic severe hyperinflation.
--- NOTE | 2020-03-04 13:46 | ED.SOB ---
HPI - SOB/Dyspnea General Chief Complaint: Shortness of Breath/Dyspnea Stated Complaint: SOB Time Seen by Provider: 03/04/20 13:42 Source: patient, RN notes reviewed and old records reviewed History of Present Illness HPI Narrative: 74-year-old female presents to emergency department for shortness of breath for the past 5 days. Patient states that this feels like her COPD. She has tried Spiriva for her breathing. Denies chest pain. No fever or chills. No runny or congested nose. Related Data Home Medications Medication Instructions Recorded Confirmed Calcium 600 + D(3) 1 cap PO HS 05/10/19 09/28/19 albuterol sulfate 2 puff INHALATION QID PRN 05/10/19 09/28/19 amlodipine [Norvasc] 10 mg PO DAILY 05/10/19 09/28/19 fluticasone propion-salmeterol 1 inh INHALATION Q12H 05/10/19 09/28/19 [Advair Diskus] montelukast [Singulair] 10 mg PO HS 05/10/19 09/28/19 tamoxifen 20 mg PO DAILY 05/10/19 09/28/19 Spiriva with HandiHaler 18 mcg INHALATION DAILY 09/28/19 09/28/19 Allergies Allergy/AdvReac Type Severity Reaction Status Date / Time Sulfa (Sulfonamide Allergy Severe INTERNAL Verified 09/28/19 16:07 Antibiotics) BURNING Review of Systems Review of Systems: Narrative: CONSTITUTIONAL: Denies fever, chills, or sweats. EYES: Denies visual changes, redness, or discharge. ENT: Denies rhinorrhea, congestion, sore throat, or otalgia. CARDIOVASCULAR: Denies chest pain, palpitations, or edema. RESPIRATORY: Denies cough or dyspnea. GASTROINTESTINAL: Denies abdominal pain, nausea, vomiting, or diarrhea. GENITOURINARY: Denies dysuria or hematuria. SKIN: Denies rash or itching. MUSCULOSKELETAL: Denies back pain, joint pain, or myalgia. NEUROLOGIC: Denies headache, numbness, dizziness, or weakness. PSYCHIATRIC: Denies anxiety or depression. All systems reviewed & are unremarkable except as noted in HPI and below (ROS) [facility] Past Medical History Medical History (Updated 03/04/20 @ 15:25 by Peter De Anda DO) Anxiety Breast cancer Left breast 2017 treated with radiation therapy Chronic respiratory failure with hypoxia and hypercapnia Chronic home O2 of 2.5 L COPD (chronic obstructive pulmonary disease) With PFTs in 2003 demonstrating severe obstructive ventilatory defect with acute bronchodilator response Essential hypertension Glaucoma Urinary, incontinence, stress female Surgical History Surgical History History of partial mastectomy of left breast July 2016 Previous section Status post cataract extraction of both eyes with insertion of intraocular lens Family History Family History Sibling COPD (chronic obstructive pulmonary disease) The patient's younger sister is from lung cancer and COPD Cirrhosis Patient's younger brother is of unspecified cancer but also has cirrhosis. Father , In his 80s Arthritis Hardening of the arteries of the heart Mother , In her 80s Hypertension Hardening of the arteries of the heart Social History Social History Social History: Primary care physician: Dr. Jovanny Akisn Code status: Modified code no CPR per patient request. She states that if her heart were to stop she is rated go be with God. The patient is okay with a trial of intubation and ventilator support. She is uncertain if she would want tracheostomy. Smoking packs per day: 1.5 Smoking cigarettes per day: 30.0 Years smoked: 40 Smoking pack-years: 60.00 Smoking status: Former smoker Tobacco type: cigarettes Additional smoking assessment comments: She quit smoking around 1999. Alcohol intake: never Substance use: never Additional living arrangements comments: She lives with her of 43 years and 1 of her adult sons. Additional occupation/education comm
--- NOTE | 2020-03-04 13:48 | ECG_ITS ---
Measurements Intervals [place] Rate: 77 P: 39 OR: 126 QRS: 4 QRSD: 102 T: 43 QT: 361 QTc: 409 Interpretive Statements SINUS RHYTHM CANNOT RULE OUT SEPTAL INFARCT, AGE INDETERMINATE BORDERLINE ST-T WAVE ABNORMALITY- ANTEROLAT/HIGH LAT LEADS BASELINE ARTIFACT- I, III, AVL, V3, V6 ABNORMAL ECG Electronically Signed On 03-04-2020 15:14:20 FRONT DESK REPRESENTATIVE by Michael Mercer D.O.
[2020-03-04 13:56] VITALS: BP 140/60; PULSE 84; RESP 24; TEMP 36.8; O2SAT 95
[2020-03-04] MEDS: methylPREDNISolone SOD SUCC 125 MG VIAL 80 MG IV PUSH (13:56)
[2020-03-04] MEDS: ALBUTEROL SULFATE NEB 2.5 MG/0.5 ML INH 5 MG INHALATION (13:56)
[2020-03-04 13:57] VITALS: PULSE 82; RESP 18
[2020-03-04] MEDS: IPRATROPIUM BR 0.02% INH SOLN 0.5 MG/2.5 ML VIAL INHALATION (13:57)
[2020-03-04 14:00] VITALS: PULSE 82; O2SAT 95
[2020-03-04 14:07] VITALS: PULSE 80; RESP 18
[2020-03-04 14:16] LABS: Hematocrit 39.2 % (37.0-47.0); Hemoglobin 11.9 g/dL (12.0-15.0); Mean Corpuscular HGB Conc 30.4 g/dl (32-36); Mean Corpuscular Hemoglobin 29.7 pg (26-34); Mean Corpuscular Volume 97.8 fl (80-100); Platelet Count Result 292 k/mm3 (150-375); Red Blood Count 4.01 M/mm3 (4.2-5.4); White Blood Count 14.3 K/mm3 (4.5-10.0)
[2020-03-04 14:27] LABS: Lactic Acid Reflex 0.7 mmol/L (0.7-2.1)
[2020-03-04 14:29] LABS: Alanine Aminotransferase 23 U/L (4-35); Albumin Level 3.4 g/dL (3.5-5.1); Alkaline Phosphatase 84 U/L (38-126); Anion Gap 8.99999 mmol/L (8-16); Aspartate Amino Transferase 17 U/L (14-36); Bilirubin,Total 0.5 mg/dL (0.2-1.3); Blood Urea Nitrogen 16 mg/dL (7-17); Calcium 8.6 mg/dL (8.4-10.2); Carbon Dioxide > 40 mmol/L (22-30); Chloride 90 mmol/L (98-107); Estimated CRCL calculation 58 ml/min; Estimated Glomerular Filt Rate > 60; Glucose 120 mg/dL (65-105); Potassium 3.6 mmol/L (3.4-5.0); Sodium 139 mmol/L (137-145)
[2020-03-04 14:33] LABS: Hypochromasia 1+ (NORMAL); Neutrophils Percent Manual 71 % (46-73); Platelet Estimate Adequate (Adequate); Total Cells Counted 100
[2020-03-04 14:34] LABS: Atypical Lymphocytes Present; Band Neutrophils Percent 4 % (0-6); Lymphocytes Absolute Manual 2.43 K/mm3 (1.1-4.5); Lymphocytes Percent Manual 17 % (18-44); Monocytes Absolute Manual 1.14 K/mm3 (0.1-0.90); Monocytes Percent Manual 8 % (3-9); Neutrophils Absolute Manual 10.72 K/mm3 (1.7-7.2)
[2020-03-04 14:46] LABS: NT Pro B Type Natriuretic Pept 598 PG/ML (5-100); Troponin I < 0.012 ng/mL (0.000-0.034)
[2020-03-04 14:53] VITALS: BP 136/88; PULSE 79; RESP 20; O2SAT 98
[2020-03-04 16:00] VITALS: BP 126/100; PULSE 88; RESP 13; O2SAT 97
== END 2020-03-04 16:30 | disposition home or self-care (01) ==
PROVIDERS: Emergency Provider Emergency Medicine; PCP Family Medicine Adolescent Medicine
DX: J44.1 Chronic obstructive pulmonary disease with (acute) exacerbation (principal); Z85.3 Personal history of malignant neoplasm of breast; J96.11 Chronic respiratory failure with hypoxia; J96.12 Chronic respiratory failure with hypercapnia; Z99.81 Dependence on supplemental oxygen; I10 Essential (primary) hypertension; H40.9 Unspecified glaucoma; Z90.12 Acquired absence of left breast and nipple; Z98.42 Cataract extraction status, left eye; Z98.41 Cataract extraction status, right eye; Z96.1 Presence of intraocular lens; Z87.891 Personal history of nicotine dependence; R94.31 Abnormal electrocardiogram [ECG] [EKG]
CPT/HCPCS: 36415; 71046; 80053; 83605; 83880; 84484; 85025; 87040; 93005; 94640; 96374; 99284; J2930

== ENCOUNTER 2020-04-29 10:09 | Outpatient (CLI) | payer OTHER, SELFPAY ==
--- NOTE | ~2020-04-29 | MM_ITS ---
EXAMINATION: MM screening camila BI w rock HISTORY: Screening TECHNIQUE: Craniocaudal and mediolateral oblique 3-D tomosynthesis images were obtained and synthetic 2-D images were generated. CAD analysis was submitted and interpreted. COMPARISON: Comparison to multiple prior studies sequentially, with oldest reviewed study dated 07/2016. BREAST PARENCHYMAL COMPOSITION: There are scattered areas of fibroglandular density. FINDINGS: There is no evidence of suspicious mass, calcification, or architectural distortion to sugg est malignancy in either breast. There has been no suspicious interval change. IMPRESSION: 1. No mammographic evidence of malignancy. 2. Recommend routine screening mammography in one year. BI-RADS Category 1: Negative Reviewed, dictated and finalized at location A. L PRESS TENDER
== END 2020-04-29 10:10 | disposition home or self-care (01) ==
PROVIDERS: PCP Family Medicine Adolescent Medicine; Visit Provider Family Medicine Adolescent Medicine
DX: Z12.31 Encounter for screening mammogram for malignant neoplasm of breast (principal)
CPT/HCPCS: 77063; 77067

== ENCOUNTER 2020-05-14 09:08 | Outpatient (CLI) | payer OTHER, SELFPAY ==
[2020-05-14 09:22] LABS: Basophils Percent Auto 0.7 % (0.2-1.2); Eosinophils Percent Auto 0.7 % (0-4.4); Hematocrit 39.8 % (37.0-47.0); Hemoglobin 12.1 g/dL (12.0-15.0); Lymphocytes Absolute Auto 1.03 K/mm3 (0.9-3.2); Lymphocytes Percent Auto 25.3 % (18.3-44.2); Mean Corpuscular HGB Conc 30.4 g/dl (32-36); Mean Corpuscular Hemoglobin 29.7 pg (26-34); Mean Corpuscular Volume 97.5 fl (80-100); Mean Platelet Volume 8.9 fl (7.4-10.4); Monocytes Absolute Auto 0.5 K/mm3 (0.1-0.6); Monocytes Percent Auto 11.3 % (2.6-8.5); Neutrophils Absolute Auto 2.5 K/mm3 (1.3-6.7); Platelet Count Result 148 k/mm3 (150-375); Red Blood Count 4.08 M/mm3 (4.2-5.4); Red Cell Distribution Width 13.5 % (11.5-14.5); White Blood Count 4.1 K/mm3 (4.5-10.0)
[2020-05-14 12:27] LABS: Alanine Aminotransferase 15 U/L (4-35); Albumin Level 3.9 g/dL (3.5-5.1); Alkaline Phosphatase 53 U/L (38-126); Anion Gap 4 mmol/L (8-16); Aspartate Amino Transferase 26 U/L (14-36); Bilirubin,Total 0.3 mg/dL (0.2-1.3); Blood Urea Nitrogen 16 mg/dL (7-17); Carbon Dioxide 38 mmol/L (22-30); Chloride 98 mmol/L (98-107); Estimated Glomerular Filt Rate > 60; Glucose 90 mg/dL (65-105); Sodium 140 mmol/L (137-145)
== END 2020-05-14 09:09 | disposition home or self-care (01) ==
LOC: ANHLAB 09:09
PROVIDERS: PCP Family Medicine Adolescent Medicine; Visit Provider Internal Medicine Hematology & Oncology
DX: C50.412 Malignant neoplasm of upper-outer quadrant of left female breast (principal)
CPT/HCPCS: 36415; 80053; 85025

== ENCOUNTER 2021-04-21 09:33 | Outpatient (CLI) | payer OTHER, SELFPAY ==
--- NOTE | ~2021-04-21 | MM_ITS ---
EXAMINATION: MM screening camila BI w rock HISTORY: Screening mammogram, family history of breast cancer in her sister. TECHNIQUE: Craniocaudal and mediolateral oblique 3-D tomosynthesis images were obtained and synthetic 2-D images were generated. CAD analysis was submitted and interpreted. COMPARISON: 04/29/2020, 04/15/2019, 04/27/2018, 04/12/2018 BREAST PARENCHYMAL COMPOSITION: There are scattered areas of fibroglandular density. FINDINGS: There is no evidence of suspicious mass, calcification, or architectural distortion to sugg est malignancy in either breast. There has been no suspicious interval change. IMPRESSION: 1. No mammographic evidence of malignancy. 2. Recommend routine screening mammography in one year. BI-RADS Category 1: Negative Reviewed, dictated and finalized at location A. FIELD MANAGER
== END 2021-04-21 09:34 | disposition home or self-care (01) ==
LOC: ANHIMG 09:35
PROVIDERS: PCP Family Medicine Adolescent Medicine; Visit Provider Internal Medicine Hematology & Oncology
DX: Z12.31 Encounter for screening mammogram for malignant neoplasm of breast (principal)
CPT/HCPCS: 77063; 77067

== ENCOUNTER 2021-05-06 16:44 | Inpatient (IN) | payer OTHER, MEDICAID, SELFPAY ==
--- NOTE | ~2021-05-06 | CT_ITS ---
EXAMINATION: CTA chest PE protocol EXAM DATE: 05/06/2021 18:43 INDICATION: Shortness of breath. TECHNIQUE: Spiral CTA of the chest (pulmonary arteries) was performed with 100 cc Omnipaque 350 intr avenous contrast injection. Images were acquired during the pulmonary arterial phase. Coronal maxi mum intensity projection 3D-reconstructions were created by the technologist on dedicated workstation . Axial, coronal and sagittal reformatted images were reviewed. The dose-length product (DLP) for t his examination was 148.80 mGy-cm. The exposure was tailored according to patient size (auto mA exp osure control), and iterative reconstruction (ASIR) was used as additional dose reduction technique. Comparison is made to prior examination from 02/08/2017. FINDINGS: Pulmonary arteries are well opacified and without intraluminal filling defects. No thora cic aortic dissection. There is severe emphysema. Dependent subsegmental atelectasis. Some endobron chial debris in the bronchus intermedius. There is no mediastinal, hilar or axillary lymphadenopathy . There is no pneumothorax. Heart normal in size. There is mild coronary arterial calcification , arterial sclerosis. Upper abdomen is unremarkable. There is thoracic spondylosis without osteobl astic or osteolytic lesions identified. IMPRESSION: 1. Dependent subsegmental atelectasis. 2. Some endobronchial debris. 3. Severe emphysema. 4. No pulmonary emboli. Reviewed, dictated and finalized at location A. LE SCHOOL DIRECTOR
--- NOTE | ~2021-05-06 | XR_ITS ---
EXAMINATION: XR chest 2V DATE: 05/06/2021 17:09 INDICATION: Shortness of breath. TECHNIQUE: Frontal and lateral views of the chest were obtained. COMPARISON: Chest 2 views 03/04/2020, chest CT 02/08/2017 FINDINGS: The lungs are hyperexpanded with lucencies and architectural distortion, consistent with em physema and scarring. Blunting of the posterior costophrenic correlates with diaphragmatic hernias by CT. No pleural effusion or pneumothorax. The heart size is normal. Calcified right hilar lymph nodes are consistent with old granulomatous disease. IMPRESSION: 1. Severe emphysema. Reviewed, dictated and finalized at location A. ET CAR MECHANIC IMPRESSION: 1. Severe emphysema.
[2021-05-06 16:52] VITALS: BP 138/108; PULSE 87; RESP 23; TEMP 36.8; O2SAT 98
--- NOTE | 2021-05-06 16:58 | ECG_ITS ---
Measurements Intervals [place] Rate: 86 P: 72 VT: 135 QRS: 8 QRSD: 92 T: 59 QT: 344 QTc: 413 Interpretive Statements SINUS RHYTHM CANNOT RULE OUT SEPTAL INFARCT, AGE INDETERMINATE BASELINE ARTIFACT- I, II, III, AVR, AVL, AVF, V1-V6 ABNORMAL ECG Electronically Signed On 05-06-2021 20:03:09 [facility] by Michael Mercer D.O.
--- NOTE | 2021-05-06 17:38 | ED.SOB ---
HPI - SOB/Dyspnea General Chief Complaint: Shortness of Breath/Dyspnea Stated Complaint: SOB Time Seen by Provider: 05/06/21 16:52 Source: patient, RN notes reviewed and old records reviewed Mode of arrival: ambulatory Limitations: no limitations History of Present Illness HPI Narrative: This is a 75 year old female with history of emphysema and chronic respiratory failure on home oxygen 2 L NC who presents for evaluation of shortness of breath. She reports shortness of breath for 1 week. It is worse with exertion. She states her oxygen will drop to 70-80s with exertion and she has to stop and rest. She denies increased cough, chest pain, runny nose, congestion, fever, nausea or vomiting. She called her pitting machine operator today and it was recommended for her to take covid test. Her home test was negative. It was also recommended for her to come to ER for evaluation. Her pitting machine operator is located at [facility] in [facility]. Related Data Home Medications Medication Instructions Recorded Confirmed Calcium 600 + D(3) 1 cap PO HS 05/10/19 09/28/19 albuterol sulfate 2 puff INHALATION QID PRN 05/10/19 09/28/19 amlodipine [Norvasc] 10 mg PO DAILY 05/10/19 09/28/19 fluticasone propion-salmeterol 1 inh INHALATION Q12H 05/10/19 09/28/19 [Advair Diskus] montelukast [Singulair] 10 mg PO HS 05/10/19 09/28/19 tamoxifen 20 mg PO DAILY 05/10/19 09/28/19 Spiriva with HandiHaler 18 mcg INHALATION DAILY 09/28/19 09/28/19 Allergies Allergy/AdvReac Type Severity Reaction Status Date / Time Sulfa (Sulfonamide Allergy Severe INTERNAL Verified 09/28/19 16:07 Antibiotics) BURNING Review of Systems Review of Systems: All systems reviewed & are unremarkable except as noted in HPI and below [facility] Past Medical History Medical History (Updated 05/06/21 @ 20:53 by Cleopatra Mccabe MD) Anxiety Breast cancer Left breast 2017 treated with radiation therapy Chronic respiratory failure with hypoxia and hypercapnia Chronic home O2 of 2.5 L COPD (chronic obstructive pulmonary disease) With PFTs in 2003 demonstrating severe obstructive ventilatory defect with acute bronchodilator response Essential hypertension Glaucoma Urinary, incontinence, stress female Surgical History Surgical History History of partial mastectomy of left breast July 2016 Previous section Status post cataract extraction of both eyes with insertion of intraocular lens Family History Family History Sibling COPD (chronic obstructive pulmonary disease) The patient's younger sister is from lung cancer and COPD Cirrhosis Patient's younger brother is of unspecified cancer but also has cirrhosis. Father , In his 80s Arthritis Hardening of the arteries of the heart Mother , In her 80s Hypertension Hardening of the arteries of the heart Social History Social History Social History: Primary care physician: Dr. Jovanny Akins Code status: Modified code no CPR per patient request. She states that if her heart were to stop she is rated go be with God. The patient is okay with a trial of intubation and ventilator support. She is uncertain if she would want tracheostomy. Smoking packs per day: 1.5 Smoking cigarettes per day: 30.0 Years smoked: 40 Smoking pack-years: 60.00 Smoking status: Former smoker Tobacco type: cigarettes Additional smoking assessment comments: She quit smoking around 1999. Alcohol intake: never Substance use: never Additional living arrangements comments: She lives with her of 43 years and 1 of her adult sons. 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 Gender identity (if verbalized by the patient): Female Spiritual care concerns: No E
[2021-05-06] MEDS: predniSONE 20 MG TABLET 60 MG PO (17:47)
[2021-05-06 17:49] VITALS: O2SAT 96
[2021-05-06 17:53] LABS: Base Excess ABG 7.6 mEq/l (+/-2.0); Carboxyhemoglobin 0.5 % THb (0-2.0); Fractional Inspired Oxygen 32 %; Methemoglobin ABG 0.3 %THb (0-1.5); Oxygen Content ABG 17.7 %vol (16.0-22.0); Oxygen Saturation ABG 98.9 % (95.0-100.0); Oxyhemoglobin 97.6 % THb (90.0-100.0); PO2 ABG 160.8 mmHg (80.0-100.0); PO2 FiO2 Ratio Arterial Blood 5.03 %; Reduced Hemoglobin 1.6 %THb (0-5.0); Total Hemoglobin 12.7 g/dL (12.0-18.0); pH ABG 7.324 (7.350-7.450)
[2021-05-06 17:54] LABS: Device NASAL CANNULA; Modified Allen's Test Pass; PCO2 ABG 70.9 mmHg (35.0-45.0); Site Drawn RIGHT RADIAL
[2021-05-06 17:55] LABS: Basophils Percent Auto 0.4 % (0.2-1.2); Hematocrit 40.3 % (37.0-47.0); Hemoglobin 12.6 g/dL (12.0-15.0); Immature Granulocyte Absolute 0.06 K/mm3 (0.00-0.031); Immature Granulocyte Percent A 0.6 % (0-0.5); Lymphocytes Absolute Auto 0.86 K/mm3 (0.9-3.2); Lymphocytes Percent Auto 8.4 % (18.3-44.2); Mean Corpuscular HGB Conc 31.3 g/dl (32-36); Mean Corpuscular Hemoglobin 30.3 pg (26-34); Mean Corpuscular Volume 96.9 fl (80-100); Monocytes Absolute Auto 0.8 K/mm3 (0.1-0.6); Monocytes Percent Auto 7.3 % (2.6-8.5); Neutrophils Absolute Auto 8.5 K/mm3 (1.3-6.7); Neutrophils Percent Auto 83.3 % (45.5-73.1); Platelet Count Result 180 k/mm3 (150-375); Red Blood Count 4.16 M/mm3 (4.2-5.4); Red Cell Distribution Width 12.6 % (11.5-14.5); White Blood Count 10.3 K/mm3 (4.5-10.0)
[2021-05-06] MEDS: ALBUTEROL SULFATE NEB 2.5 MG/0.5 ML INH 10 MG INHALATION (17:56)
[2021-05-06] MEDS: IPRATROPIUM BR 0.02% INH SOLN 0.5 MG/2.5 ML VIAL 1 MG INHALATION (17:56)
[2021-05-06 18:06] LABS: Partial Thromboplastin Time 25.8 SECONDS (22.3-36.8)
[2021-05-06 18:08] LABS: Alanine Aminotransferase 22 U/L (4-35); Albumin Level 4.1 g/dL (3.5-5.1); Alkaline Phosphatase 52 U/L (38-126); Anion Gap 5 mmol/L (8-16); Aspartate Amino Transferase 29 U/L (14-36); Bilirubin,Total 0.5 mg/dL (0.2-1.3); Blood Urea Nitrogen 13 mg/dL (7-17); Calcium 9.1 mg/dL (8.4-10.2); Carbon Dioxide 39 mmol/L (22-30); Chloride 90 mmol/L (98-107); Estimated CRCL calculation 57 ml/min; Estimated Glomerular Filt Rate > 60; Glucose 126 mg/dL (65-110); Potassium 4.6 mmol/L (3.4-5.0); Sodium 134 mmol/L (137-145)
[2021-05-06 19:40] LABS: EDCOVIDSCREEN Negative (Negative)
--- NOTE | 2021-05-06 19:45 | PM.IMHP ---
H&P: HPI History of Present Illness Date/Time: 05/06/21 19:45 Chief Complaint: Shortness of breath. Narrative: This is a 75-year-old female with past medical history significant for COPD/emphysema, former tobacco user, chronic hypoxic respiratory failure on 06/01 0.5 L at home, continuous. Patient presented to the emergency room due to worsening shortness of breath for the last 2 weeks or so, has been using her inhaler more of 10 as well have notice cough with productive sputum of yellow to whitish. Patient denies any fevers, rigors, chills, no nausea, vomiting or diarrhea, patient has had also weight loss unintentional and poor appetite over the last several months according to son who is at bedside. Patient tried increasing her oxygen after her pulse ox was showing saturation of oxygen to be anywhere between 70-80%. Preliminary workup in the emergency room was significant for CT a of the chest was negative for acute pulmonary embolism, severe emphysema, ABG pH was 7.3, pCO2 of 84, PO2 112, a rapid COVID test was negative. Patient is being admitted for further evaluation, management and treat Review of Systems Review of Systems: Worsening shortness of breath, cough productive of yellowish to whitish sputum, weight loss, poor appetite. Constitutional: Constitutional: Denies chills, Reports difficulty sleeping, Reports fatigue, Denies fever(s), Reports lethargy, Denies malaise, Denies night sweats and Reports weight loss Eyes: Eyes: Denies change in vision ENT: Denies dysphagia, Denies nasal congestion, Denies nasal discharge, Denies nasal obstruction and Denies odynophagia Cardiovascular: Cardiovascular: Denies chest pain at rest, Denies chest pain with activity, Denies pedal edema, Denies irregular heart rhythm, Denies leg edema, Denies lightheadedness, Denies radiating jaw, neck or arm pain, Denies palpitations, Denies dyspnea, Denies dyspnea on exertion and Denies orthopnea Respiratory: Respiratory: Reports change in phlegm color, Reports cough, Reports excessive phlegm production, Reports dyspnea, Reports dyspnea on exertion and Denies wheezing Gastrointestinal: Gastrointestinal: Denies abdominal pain, Denies dyspepsia, Denies heartburn, Denies diarrhea, Denies nausea and Denies vomiting Genitourinary: Genitourinary: Denies dysuria and Denies flank pain Integumentary/Breasts: Skin/Breast: Denies rash Neurologic: Denies focal weakness and Denies Sensory deficit (Neuro) Psychiatric: Psychiatric: Reports no additional psychiatric complaints and Reports as per HPI Endocrine: Endocrine: Denies cold intolerance, Denies heat intolerance and Denies palpitations Hematologic/Lymphatic: Hematologic/Lymphatic: Reports no additional hematologic/lymphatic complaints and Reports as per HPI Allergic/Immunologic: Allergic/Immunologic: Reports no additional allergic/immunologic complaints and Reports as per HPI PMFSH Past Medical History Medical History (Updated 05/06/21 @ 20:53 by Cleopatra Mccabe MD) Anxiety Breast cancer Left breast 2016 treated with radiation therapy Chronic respiratory failure with hypoxia and hypercapnia Chronic home O2 of 2.5 L COPD (chronic obstructive pulmonary disease) With PFTs in 2003 demonstrating severe obstructive ventilatory defect with acute bronchodilator response Essential hypertension Glaucoma Urinary, incontinence, stress female Surgical History Surgical History History of partial mastectomy of left breast July 2016 Previous section Status post cataract extraction of both eyes with insertion of intraocular lens Family History Family History Sibling COPD (chronic obstructive pulmonary disease) The patient's younger sister is from lung cancer and COPD Cirrhosis Patient's younger brother is of unspecified cancer but also has cirrhosis. Father Deceas
[2021-05-06 20:39] LABS: Base Excess ABG 11.4 mEq/l (+/-2.0); Fractional Inspired Oxygen 28 %; HCO3 ABG 41.2 mEq/l (22.0-26.0); Oxygen Content ABG 17.8 %vol (16.0-22.0); Oxygen Saturation ABG 97.5 % (95.0-100.0); Oxyhemoglobin 96.3 % THb (90.0-100.0); PO2 ABG 112.6 mmHg (80.0-100.0); PO2 FiO2 Ratio Arterial Blood 4.02 %; pH ABG 7.306 (7.350-7.450)
[2021-05-06 20:41] LABS: PCO2 ABG 84.4 mmHg (35.0-45.0)
[2021-05-06 20:42] LABS: Device NASAL CANNULA; Modified Allen's Test Pass; Site Drawn RIGHT RADIAL
[2021-05-06 21:07] VITALS: PULSE 86; RESP 22; O2SAT 96
[2021-05-06 23:53] VITALS: PULSE 78; RESP 20
[2021-05-07] VITALS (29 sets, daily range): BP systolic 130–161; BP diastolic 55–85; PULSE 77–96; RESP 19–28; TEMP 36.1–36.6; O2SAT 95–100; BMI 19.9
--- NOTE | 2021-05-07 03:31 | ADMGEN ---
This patient, Ritu Liao, was admitted to IMU Room 200-01 on 05/07/20 at 0045. Patient/family oriented to hospital policies and general routines including ID bracelet, bed and alarms, visiting hours, pain management, procedures, bathroom and other care routines, personal items, smoking policy, room service/diet, and visiting hours. Information on how to activate the Rapid Response Team has been discussed. Patient/Family are encouraged to report perceived risks to care and to ask questions if they do not understand what they are told or what they should do.
[2021-05-07 05:13] LABS: Basophils Percent Auto 0.2 % (0.2-1.2); Hematocrit 38.4 % (37.0-47.0); Hemoglobin 12.1 g/dL (12.0-15.0); Immature Granulocyte Absolute 0.02 K/mm3 (0.00-0.031); Immature Granulocyte Percent A 0.4 % (0-0.5); Lymphocytes Absolute Auto 0.48 K/mm3 (0.9-3.2); Lymphocytes Percent Auto 8.9 % (18.3-44.2); Mean Corpuscular HGB Conc 31.5 g/dl (32-36); Mean Platelet Volume 9.9 fl (7.4-10.4); Monocytes Absolute Auto 0.1 K/mm3 (0.1-0.6); Monocytes Percent Auto 1.3 % (2.6-8.5); Neutrophils Absolute Auto 4.8 K/mm3 (1.3-6.7); Neutrophils Percent Auto 89.2 % (45.5-73.1); Platelet Count Result 187 k/mm3 (150-375); Red Blood Count 4.04 M/mm3 (4.2-5.4); Red Cell Distribution Width 12.3 % (11.5-14.5); White Blood Count 5.4 K/mm3 (4.5-10.0)
[2021-05-07 05:21] LABS: Alanine Aminotransferase 20 U/L (4-35); Albumin Level 3.6 g/dL (3.5-5.1); Alkaline Phosphatase 43 U/L (38-126); Anion Gap 5 mmol/L (8-16); Aspartate Amino Transferase 28 U/L (14-36); Bilirubin,Total 0.4 mg/dL (0.2-1.3); Blood Urea Nitrogen 13 mg/dL (7-17); Calcium 8.8 mg/dL (8.4-10.2); Carbon Dioxide 38 mmol/L (22-30); Chloride 90 mmol/L (98-107); Estimated CRCL calculation 70 ml/min; Estimated Glomerular Filt Rate > 60; Glucose 175 mg/dL (65-110); Potassium 4.5 mmol/L (3.4-5.0); Sodium 133 mmol/L (137-145)
--- NOTE | 2021-05-07 07:50 | PM.IMPN ---
Progress Note: A&P Assessment and Plan (1) Acute exacerbation of chronic obstructive airways disease: Code(s): J44.1 - Chronic obstructive pulmonary disease with (acute) exacerbation Status: Acute Assessment and Plan: Complaints of increased shortness of breath, wheezes, sputum with changes Appears to be a CO2 retainer ABG shows repsiratory acidosis with a pH of 7.306 CO2 of 84 Chest xray shows Severe emphysema CTA shows Severe emphysema, endobronchial debris, atelectasis, NO PE WBC 5.4 today Sputum culture ordered Home inhalers on hold for now, resume when appropriate Admit to IMU, probably could downgrade if needed Continuous BiPAP 12/6 rate of 20 30% FIO2 Telemetry and pulsox monitoring Breathing treatments Prednisone 60 mg p.o. daily Pulmonology consult thank you for your help Continue levofloxacin 750mg IV daily Cornette therapy, IS therapy when indicated (2) Acute and chronic respiratory failure with hypercapnia: Code(s): J96.22 - Acute and chronic respiratory failure with hypercapnia Status: Acute Assessment and Plan: Patient is on 2.5 L of supplemental oxygen at home continuous, increased to 3L Reports SPO2 of 66% at home Currently on BiPAP 12/6 rate of 20 ABG respiratory acidosis Supportive care (3) Person under investigation for COVID-19: Code(s): Z20.822 - Contact with and (suspected) exposure to COVID-19 Status: Acute Assessment and Plan: Home and rapid negative PCR pending Isolation for now (4) HTN (hypertension): Code(s): I10 - Essential (primary) hypertension Status: Acute Assessment and Plan: BP 161/85 Continue home amlodipine Trend BP Adjust therapy as indicated (5) Hx of breast cancer: Code(s): Z85.3 - Personal history of malignant neoplasm of breast Status: Acute Assessment and Plan: Continue home medications Follows with Dr. Monaco (6) Weakness: Code(s): R53.1 - Weakness Status: Acute Assessment and Plan: Reports weakness probably from her breathing problems PT/OT Time Spent With Patient Time with patient: 25 - 35 minutes Subjective Date/time seen: 05/07/21 0750 Interval history: Date/Time: 05/06/21 19:45 Narrative: This is a 75-year-old female with past medical history significant for COPD/emphysema, former tobacco user, chronic hypoxic respiratory failure on 06/01 0.5 L at home, continuous. Patient presented to the emergency room due to worsening shortness of breath for the last 2 weeks or so, has been using her inhaler more of 10 as well have notice cough with productive sputum of yellow to whitish. Patient denies any fevers, rigors, chills, no nausea, vomiting or diarrhea, patient has had also weight loss unintentional and poor appetite over the last several months according to son who is at bedside. Patient tried increasing her oxygen after her pulse ox was showing saturation of oxygen to be anywhere between 70-80%. Preliminary workup in the emergency room was significant for CT a of the chest was negative for acute pulmonary embolism, severe emphysema, ABG pH was 7.3, pCO2 of 84, PO2 112, a rapid COVID test was negative. Patient is being admitted for further evaluation, management and treat Date/Time 05/07/21 0750 Patient is in bed on the BiPap. She was doing ok when I was talking to her. She stated that this really started about 7 days ago. She was able to talk to her pulmonary Dr. Ingram who prescribed her steroids and Levaquin. Which she stated that she has taken about 3 days worth. She also stated that she took a home test for covid, and was rapid swabbed her for COVID which both have came back negative. She also stated that she has been using her nebulizer at home which has been helping her cough. However she stated that she does have a cough which is currently bringing up a frothy wh
--- NOTE | 2021-05-07 07:50 | P.PNIM_ITS ---
Progress Note: A&P Assessment and Plan (1) Acute exacerbation of chronic obstructive airways disease: Code(s): J44.1 - Chronic obstructive pulmonary disease with (acute) exacerbation Status: Acute Assessment and Plan: * Complaints of increased shortness of breath, wheezes, sputum with changes * Appears to be a CO2 retainer * ABG shows repsiratory acidosis with a pH of 7.306 CO2 of 84 * Chest xray shows Severe emphysema * CTA shows Severe emphysema, endobronchial debris, atelectasis, NO PE * WBC 5.4 today * Sputum culture ordered * Home inhalers on hold for now, resume when appropriate * Admit to IMU, probably could downgrade if needed * Continuous BiPAP 12/6 rate of 20 30% FIO2 * Telemetry and pulsox monitoring * Breathing treatments * Prednisone 60 mg p.o. daily * Pulmonology consult thank you for your help * Continue levofloxacin 750mg IV daily * Cornette therapy, IS therapy when indicated (2) Acute and chronic respiratory failure with hypercapnia: Code(s): J96.22 - Acute and chronic respiratory failure with hypercapnia Status: Acute Assessment and Plan: * Patient is on 2.5 L of supplemental oxygen at home continuous, increased to 3L * Reports SPO2 of 66% at home * Currently on BiPAP 12/6 rate of 20 * ABG respiratory acidosis * Supportive care (3) Person under investigation for COVID-19: Code(s): Z20.822 - Contact with and (suspected) exposure to COVID-19 Status: Acute Assessment and Plan: * Home and rapid negative * PCR pending * Isolation for now (4) HTN (hypertension): Code(s): I10 - Essential (primary) hypertension Status: Acute Assessment and Plan: * BP 161/85 * Continue home amlodipine * Trend BP * Adjust therapy as indicated (5) Hx of breast cancer: Code(s): Z85.3 - Personal history of malignant neoplasm of breast Status: Acute Assessment and Plan: * Continue home medications * Follows with Dr. Monaco (6) Weakness: Code(s): R53.1 - Weakness Status: Acute Assessment and Plan: * Reports weakness * probably from her breathing problems * PT/OT Time Spent With Patient Time with patient: 25 - 35 minutes Subjective Date/time seen: 05/07/21 0750 Interval history: Date/Time: 05/06/21 19:45 Narrative: This is a 75-year-old female with past medical history significant for COPD/emphysema, former tobacco user, chronic hypoxic respiratory failure on 06/01 0.5 L at home, continuous. Patient presented to the emergency room due to worsening shortness of breath for the last 2 weeks or so, has been using her inhaler more of 10 as well have notice cough with productive sputum of yellow to whitish. Patient denies any fevers, rigors, chills, no nausea, vomiting or diarrhea, patient has had also weight loss unintentional and poor appetite over the last several months according to son who is at bedside. Patient tried increasing her oxygen after her pulse ox was showing saturation of oxygen to be anywhere between 70-80%. Preliminary workup in the emergency room was significant for CT a of the chest was negative for acute pulmonary embolism, severe emphysema, ABG pH was 7.3, pCO2 of 84, PO2 112, a rapid COVID test was negative. Patient is being admitted for further evaluation, management and treat Date/Time 05/07/21 0750 Patient is in bed on the BiPap. She was doing ok when I was talking to her. She stated that this really
--- NOTE | 2021-05-07 08:06 | PM.CNPUL ---
Assessment and Plan Assessment and plan (1) Acute exacerbation of chronic obstructive airways disease: Code(s): J44.1 - Chronic obstructive pulmonary disease with (acute) exacerbation Status: Acute Assessment and Plan: 05/07 Patient with a history of 40 pack years tobacco use quit 21 years ago, chest x-ray from 1999 demonstrating hyperinflation, earliest CT scan in our hospital's from 02/08/2017 with panlobular emphysema, and a PFT report from 09/25/2003 demonstrating a severe obstructive abnormality. The patient is on 2.5 L nasal cannula 24 hours a day. Currently the patient has a COPD exacerbation with shortness of breath but no change in her sputum with hypercarbic and hypoxemic respiratory failure with a blood gas of 7.32/71/161 and a serum bicarbonate level of 39. Agree with current treatment of COPD exacerbation and I will decrease her dose of prednisone from 60 to prednisone 40 mg p.o. q.day, I will increase her frequency of albuterol and ipratropium nebulizers from Q 6 to q.4 hours and continue Levaquin 750 mg q.day for tracheobronchitis. Of note there is no evidence of a focal pneumonia, fluid overload or a pulmonary embolism on her CT angiogram of the chest. Her COVID RT PCR and influenza swab are negative. currently patient is on 2 L nasal cannula saturations 96% and I will continue this 24-7 (2) Acute and chronic respiratory failure with hypercapnia: Code(s): J96.22 - Acute and chronic respiratory failure with hypercapnia Status: Acute Assessment and Plan: 05/07 patient with severe COPD and now hypoxic and hypercarbic respiratory failure. Patient has a blood gas on admission 7.32/71/161 on 3 L nasal cannula and a serum bicarbonate of 39. On review of her medical records her serum bicarbonates have been 38-40 when she was admitted to our hospital on 09/27/20 She has chronic hypercarbic respiratory failure from COPD and she would benefit from a home noninvasive ventilation. noninvasive ventilation would prevent further deterioration and prevent hospitalizations in the future. She would benefit from Patient was tried on BiPAP last night but this was uncomfortable and she was unable to sleep. I just at her mass and placed her on Noninvasive ventilation with AVAPS mode and adjusted setting to comfort: rate of 8, tidal volume 400, EPAP 4, minimal inspiratory pressure 5, maximal inspiratory pressure 30, inspiratory time 1.2, rise 5 and 30%. Her peak inspiratory pressure was 7 and Her saturations were 96%. will continue these settings to night. I will check a blood gas in the morning prior to removal. If she can tolerate noninvasive ventilation in the hospital will arrange for her to have a home machine. Inpatient Pulmonary Services will resume on 05/10/21: Call with questions History of Present Illness History of Present Illness Consult date: 05/07/21 Chief complaint: Acute on Chronic Respiratory Failure w/hypercapnea Narrative: 05/07/2021: This is a new pulmonary consult for COPD exacerbation with hypercarbic and hypoxemic respiratory failure 75-year-old woman with a history of breast cancer status post radiation therapy in 2017, hypertension, anxiety and COPD diagnosed in 1999 on home oxygen 2.5 L [address] Ingram in [address] [place] [address]. Patient states at baseline she can walk 1/4 block, she can clean her house, she has no chronic cough, no chronic phlegm production, does not wheeze. she is maintained on Advair 500-50 at 1 puff b.i.d. and tiotropium bromide 18 mcg at 1 puff q.day. Patient smoked tobacco from age [age] at 1 pack per day for a total of 40 pack years. Patient was exposed to secondhand smoke from her father. Patient denies vaping electronic cigarettes and denies illicit drug use. 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 She was in her usual state
[2021-05-07] MEDS: IPRATROPIUM BR 0.02% INH SOLN 0.5 MG/2.5 ML VIAL INHALATION ×4 (08:30→23:31)
[2021-05-07] MEDS: ALBUTEROL SULFATE NEB 2.5 MG/0.5 ML INH INHALATION ×4 (08:30→23:31)
[2021-05-07] MEDS: ENOXAPARIN 40 MG/0.4 ML SYRINGE SUB-Q (08:35)
[2021-05-07] MEDS: predniSONE 20 MG TABLET 60 MG PO (08:35)
[2021-05-07 09:12] LABS: Influenza Control Positive; SARS-CoV-2 RNA PCR Negative
[2021-05-07] MEDS: TAMOXIFEN CITRATE (*CHEMO) 10 MG TABLET 20 MG PO (12:23)
[2021-05-07] MEDS: cycloSPORINE 0.4 ML OPHTH SOLUTION 1 DROP EACH EYE (12:24)
[2021-05-07] MEDS: amLODIPine BESYLATE 5 MG TABLET 10 MG PO (12:24)
[2021-05-07] MEDS: FERROUS SULFATE 324 MG TABLET PO (12:24)
[2021-05-07] MEDS: MONTELUKAST SODIUM 10 MG TABLET PO (20:26)
[2021-05-08] VITALS (19 sets, daily range): BP systolic 128–154; BP diastolic 75–91; PULSE 72–110; RESP 16–24; TEMP 36.3–36.9; O2SAT 91–100
[2021-05-08] MEDS: IPRATROPIUM BR 0.02% INH SOLN 0.5 MG/2.5 ML VIAL INHALATION ×4 (04:49→21:30)
[2021-05-08] MEDS: ALBUTEROL SULFATE NEB 2.5 MG/0.5 ML INH INHALATION ×4 (04:49→21:30)
[2021-05-08 04:58] LABS: Basophils Percent Auto 0.2 % (0.2-1.2); Hematocrit 35.9 % (37.0-47.0); Hemoglobin 11.6 g/dL (12.0-15.0); Immature Granulocyte Absolute 0.06 K/mm3 (0.00-0.031); Immature Granulocyte Percent A 0.7 % (0-0.5); Lymphocytes Absolute Auto 1.07 K/mm3 (0.9-3.2); Lymphocytes Percent Auto 12.8 % (18.3-44.2); Mean Corpuscular HGB Conc 32.3 g/dl (32-36); Mean Corpuscular Hemoglobin 30.4 pg (26-34); Mean Platelet Volume 9.7 fl (7.4-10.4); Monocytes Absolute Auto 0.8 K/mm3 (0.1-0.6); Neutrophils Absolute Auto 6.4 K/mm3 (1.3-6.7); Neutrophils Percent Auto 76.3 % (45.5-73.1); Platelet Count Result 193 k/mm3 (150-375); Red Blood Count 3.82 M/mm3 (4.2-5.4); Red Cell Distribution Width 12.5 % (11.5-14.5); White Blood Count 8.3 K/mm3 (4.5-10.0)
[2021-05-08 05:22] LABS: Alanine Aminotransferase 17 U/L (4-35); Albumin Level 3.2 g/dL (3.5-5.1); Alkaline Phosphatase 47 U/L (38-126); Aspartate Amino Transferase 24 U/L (14-36); Bilirubin,Total 0.2 mg/dL (0.2-1.3); Blood Urea Nitrogen 14 mg/dL (7-17); Calcium 8.9 mg/dL (8.4-10.2); Carbon Dioxide > 40 mmol/L (22-30); Chloride 92 mmol/L (98-107); Estimated CRCL calculation 49 ml/min; Estimated Glomerular Filt Rate > 60; Glucose 87 mg/dL (65-110); Magnesium 2.1 mg/dL (1.6-2.3); Potassium 3.8 mmol/L (3.4-5.0); Sodium 136 mmol/L (137-145)
[2021-05-08 06:04] LABS: Total Hemoglobin 12.7 g/dL (12.0-18.0)
[2021-05-08 06:05] LABS: Oxygen Content ABG 17.8 %vol (16.0-22.0)
[2021-05-08 06:06] LABS: Device BIPAP; Fractional Inspired Oxygen 30 %; Modified Allen's Test Pass; PO2 FiO2 Ratio Arterial Blood 5.62 %; Site Drawn RIGHT RADIAL
[2021-05-08 06:07] LABS: Expiratory Pressure 6 cmH2O; Inspiratory Pressure 12 cmH2O
[2021-05-08] MEDS: ENOXAPARIN 40 MG/0.4 ML SYRINGE SUB-Q (08:08)
[2021-05-08] MEDS: amLODIPine BESYLATE 5 MG TABLET 10 MG PO (08:09)
[2021-05-08] MEDS: FERROUS SULFATE 324 MG TABLET PO (08:10)
[2021-05-08] MEDS: cycloSPORINE 0.4 ML OPHTH SOLUTION 1 DROP EACH EYE ×2 (08:10→21:00)
[2021-05-08] MEDS: TAMOXIFEN CITRATE (*CHEMO) 10 MG TABLET 20 MG PO (08:11)
[2021-05-08] MEDS: predniSONE 20 MG TABLET 40 MG PO (09:31)
--- NOTE | 2021-05-08 14:43 | P.PNIM_ITS ---
Progress Note: A&P Assessment and Plan (1) Acute exacerbation of chronic obstructive airways disease: Code(s): J44.1 - Chronic obstructive pulmonary disease with (acute) exacerbation Status: Acute Assessment and Plan: * Complaints of increased shortness of breath, wheezes, sputum with changes * Appears to be a CO2 retainer * ABG shows repsiratory acidosis with a pH of 7.306 CO2 of 84 * Chest xray shows Severe emphysema * CTA shows Severe emphysema, endobronchial debris, atelectasis, NO PE * WBC 5.4 today * Sputum culture ordered * Home inhalers on hold for now, resume when appropriate * Admit to IMU, probably could downgrade if needed * Continuous BiPAP 12/6 rate of 20 30% FIO2 * Telemetry and pulsox monitoring * Breathing treatments * Prednisone 60 mg p.o. daily * Pulmonology consult thank you for your help * Continue levofloxacin 750mg IV daily * Cornette therapy, IS therapy when indicated 05/08/2021 interval history:75-year-old female Ex heavy smoker with severe COPD admitted with shortness of breath secondary to exacerbation of COPD seen by pulmonology being treated with prednisone and was tapered down to 40 mg q.day from 60 as patient symptoms improving, will continue on DuoNeb, patient is suspected to have tracheobronchitis and being treated with Levaquin, today patient lungs do sounds some crackles will 1 time dose of IV Lasix 20 mg and monitor, will continue present management will have PT OT evaluate the patient and further recommendation to follow (2) Acute and chronic respiratory failure with hypercapnia: Code(s): J96.22 - Acute and chronic respiratory failure with hypercapnia Status: Acute Assessment and Plan: * Patient is on 2.5 L of supplemental oxygen at home continuous, increased to 3L * Reports SPO2 of 66% at home * Currently on BiPAP 12/6 rate of 20 * ABG respiratory acidosis * Supportive care (3) Person under investigation for COVID-19: Code(s): Z20.822 - Contact with and (suspected) exposure to COVID-19 Status: Acute Assessment and Plan: * Home and rapid negative * PCR pending * Isolation for now (4) HTN (hypertension): Code(s): I10 - Essential (primary) hypertension Status: Acute Assessment and Plan: * BP 161/85 * Continue home amlodipine * Trend BP * Adjust therapy as indicated (5) Hx of breast cancer: Code(s): Z85.3 - Personal history of malignant neoplasm of breast Status: Acute Assessment and Plan: * Continue home medications * Follows with Dr. Monaco (6) Weakness: Code(s): R53.1 - Weakness Status: Acute Assessment and Plan: * Reports weakness * probably from her breathing problems * PT/OT Subjective Date/time seen: 05/08/21 14:43 05/08/2021 interval history:75-year-old female Ex heavy smoker with severe COPD admitted with shortness of breath secondary to exacerbation of COPD seen by pulmonology being treated with prednisone and was tapered down to 40 mg q.day from 60 as patient symptoms improving, will continue on DuoNeb, patient is suspected to have tracheobronchitis and being treated with Levaquin, today patient lungs do sounds some crackles will 1 time dose of IV Lasix 20 mg and monitor, will continue present management will have PT OT evaluate the patient and further recommendation to follow Review of Systems Review of Systems: All systems reviewed & are unremarkable except as noted in HPI and
--- NOTE | 2021-05-08 14:43 | PM.IMPN ---
Progress Note: A&P Assessment and Plan (1) Acute exacerbation of chronic obstructive airways disease: Code(s): J44.1 - Chronic obstructive pulmonary disease with (acute) exacerbation Status: Acute Assessment and Plan: Complaints of increased shortness of breath, wheezes, sputum with changes Appears to be a CO2 retainer ABG shows repsiratory acidosis with a pH of 7.306 CO2 of 84 Chest xray shows Severe emphysema CTA shows Severe emphysema, endobronchial debris, atelectasis, NO PE WBC 5.4 today Sputum culture ordered Home inhalers on hold for now, resume when appropriate Admit to IMU, probably could downgrade if needed Continuous BiPAP 12/6 rate of 20 30% FIO2 Telemetry and pulsox monitoring Breathing treatments Prednisone 60 mg p.o. daily Pulmonology consult thank you for your help Continue levofloxacin 750mg IV daily Cornette therapy, IS therapy when indicated 05/08/2021 interval history:75-year-old female Ex heavy smoker with severe COPD admitted with shortness of breath secondary to exacerbation of COPD seen by pulmonology being treated with prednisone and was tapered down to 40 mg q.day from 60 as patient symptoms improving, will continue on DuoNeb, patient is suspected to have tracheobronchitis and being treated with Levaquin, today patient lungs do sounds some crackles will 1 time dose of IV Lasix 20 mg and monitor, will continue present management will have PT OT evaluate the patient and further recommendation to follow (2) Acute and chronic respiratory failure with hypercapnia: Code(s): J96.22 - Acute and chronic respiratory failure with hypercapnia Status: Acute Assessment and Plan: Patient is on 2.5 L of supplemental oxygen at home continuous, increased to 3L Reports SPO2 of 66% at home Currently on BiPAP 12/6 rate of 20 ABG respiratory acidosis Supportive care (3) Person under investigation for COVID-19: Code(s): Z20.822 - Contact with and (suspected) exposure to COVID-19 Status: Acute Assessment and Plan: Home and rapid negative PCR pending Isolation for now (4) HTN (hypertension): Code(s): I10 - Essential (primary) hypertension Status: Acute Assessment and Plan: BP 161/85 Continue home amlodipine Trend BP Adjust therapy as indicated (5) Hx of breast cancer: Code(s): Z85.3 - Personal history of malignant neoplasm of breast Status: Acute Assessment and Plan: Continue home medications Follows with Dr. Monaco (6) Weakness: Code(s): R53.1 - Weakness Status: Acute Assessment and Plan: Reports weakness probably from her breathing problems PT/OT Subjective Date/time seen: 05/08/21 14:43 05/08/2021 interval history:75-year-old female Ex heavy smoker with severe COPD admitted with shortness of breath secondary to exacerbation of COPD seen by pulmonology being treated with prednisone and was tapered down to 40 mg q.day from 60 as patient symptoms improving, will continue on DuoNeb, patient is suspected to have tracheobronchitis and being treated with Levaquin, today patient lungs do sounds some crackles will 1 time dose of IV Lasix 20 mg and monitor, will continue present management will have PT OT evaluate the patient and further recommendation to follow Review of Systems Review of Systems: All systems reviewed & are unremarkable except as noted in HPI and below Exam Narrative: appears chronically ill under nourished Patient is comfortable, NAD HEENT: eyes are clear and none icteric LUNGS: bilateral poor air entry with rales and wheezing HEART: RR S1S2 ABD: not distended Lower extremities: no edema SKIN: nonjaundiced Neuro: grossly intact. Objective Data Vital Signs Vital Signs: Vital Signs - 24 hr 05/07/21 15:55 05/07/21 16:00 05/07/21 16:45 Temperature 97 F L Pulse Rate 86 89 Respiratory Ra
--- NOTE | 2021-05-08 14:58 | P.PNIM_ITS ---
Progress Note: A&P Assessment and Plan (1) Acute exacerbation of chronic obstructive airways disease: Code(s): J44.1 - Chronic obstructive pulmonary disease with (acute) exacerbation Status: Acute Assessment and Plan: * Complaints of increased shortness of breath, wheezes, sputum with changes * Appears to be a CO2 retainer * ABG shows repsiratory acidosis with a pH of 7.306 CO2 of 84 * Chest xray shows Severe emphysema * CTA shows Severe emphysema, endobronchial debris, atelectasis, NO PE * WBC 5.4 today * Sputum culture ordered * Home inhalers on hold for now, resume when appropriate * Admit to IMU, probably could downgrade if needed * Continuous BiPAP 12/6 rate of 20 30% FIO2 * Telemetry and pulsox monitoring * Breathing treatments * Prednisone 60 mg p.o. daily * Pulmonology consult thank you for your help * Continue levofloxacin 750mg IV daily * Cornette therapy, IS therapy when indicated 05/08/2021 interval history:75-year-old female Ex heavy smoker with severe COPD admitted with shortness of breath secondary to exacerbation of COPD seen by pulmonology being treated with prednisone and was tapered down to 40 mg q.day from 60 as patient symptoms improving, will continue on DuoNeb, patient is suspected to have tracheobronchitis and being treated with Levaquin, today patient lungs do sounds some crackles will 1 time dose of IV Lasix 20 mg and monitor, will continue present management will have PT OT evaluate the patient and further recommendation to follow (2) Acute and chronic respiratory failure with hypercapnia: Code(s): J96.22 - Acute and chronic respiratory failure with hypercapnia Status: Acute Assessment and Plan: * Patient is on 2.5 L of supplemental oxygen at home continuous, increased to 3L * Reports SPO2 of 66% at home * Currently on BiPAP 12/6 rate of 20 * ABG respiratory acidosis * Supportive care (3) Person under investigation for COVID-19: Code(s): Z20.822 - Contact with and (suspected) exposure to COVID-19 Status: Acute Assessment and Plan: * Home and rapid negative * PCR pending * Isolation for now (4) HTN (hypertension): Code(s): I10 - Essential (primary) hypertension Status: Acute Assessment and Plan: * BP 161/85 * Continue home amlodipine * Trend BP * Adjust therapy as indicated (5) Hx of breast cancer: Code(s): Z85.3 - Personal history of malignant neoplasm of breast Status: Acute Assessment and Plan: * Continue home medications * Follows with Dr. Monaco (6) Weakness: Code(s): R53.1 - Weakness Status: Acute Assessment and Plan: * Reports weakness * probably from her breathing problems * PT/OT Subjective Date/time seen: 05/08/21 14:58 05/08/2021 interval history:75-year-old female Ex heavy smoker with severe COPD admitted with shortness of breath secondary to exacerbation of COPD seen by pulmonology being treated with prednisone and was tapered down to 40 mg q.day from 60 as patient symptoms improving, will continue on DuoNeb, patient is suspected to have tracheobronchitis and being treated with Levaquin, today patient lungs do sounds some crackles will 1 time dose of IV Lasix 20 mg and monitor, will continue present management will have PT OT evaluate the patient and further recommendation to follow Exam Narrative: appears chronically ill under nourished Patient is comfortable, NAD H
--- NOTE | 2021-05-08 14:58 | PM.IMPN ---
Progress Note: A&P Assessment and Plan (1) Acute exacerbation of chronic obstructive airways disease: Code(s): J44.1 - Chronic obstructive pulmonary disease with (acute) exacerbation Status: Acute Assessment and Plan: Complaints of increased shortness of breath, wheezes, sputum with changes Appears to be a CO2 retainer ABG shows repsiratory acidosis with a pH of 7.306 CO2 of 84 Chest xray shows Severe emphysema CTA shows Severe emphysema, endobronchial debris, atelectasis, NO PE WBC 5.4 today Sputum culture ordered Home inhalers on hold for now, resume when appropriate Admit to IMU, probably could downgrade if needed Continuous BiPAP 12/6 rate of 20 30% FIO2 Telemetry and pulsox monitoring Breathing treatments Prednisone 60 mg p.o. daily Pulmonology consult thank you for your help Continue levofloxacin 750mg IV daily Cornette therapy, IS therapy when indicated 05/08/2021 interval history:75-year-old female Ex heavy smoker with severe COPD admitted with shortness of breath secondary to exacerbation of COPD seen by pulmonology being treated with prednisone and was tapered down to 40 mg q.day from 60 as patient symptoms improving, will continue on DuoNeb, patient is suspected to have tracheobronchitis and being treated with Levaquin, today patient lungs do sounds some crackles will 1 time dose of IV Lasix 20 mg and monitor, will continue present management will have PT OT evaluate the patient and further recommendation to follow (2) Acute and chronic respiratory failure with hypercapnia: Code(s): J96.22 - Acute and chronic respiratory failure with hypercapnia Status: Acute Assessment and Plan: Patient is on 2.5 L of supplemental oxygen at home continuous, increased to 3L Reports SPO2 of 66% at home Currently on BiPAP 12/6 rate of 20 ABG respiratory acidosis Supportive care (3) Person under investigation for COVID-19: Code(s): Z20.822 - Contact with and (suspected) exposure to COVID-19 Status: Acute Assessment and Plan: Home and rapid negative PCR pending Isolation for now (4) HTN (hypertension): Code(s): I10 - Essential (primary) hypertension Status: Acute Assessment and Plan: BP 161/85 Continue home amlodipine Trend BP Adjust therapy as indicated (5) Hx of breast cancer: Code(s): Z85.3 - Personal history of malignant neoplasm of breast Status: Acute Assessment and Plan: Continue home medications Follows with Dr. Monaco (6) Weakness: Code(s): R53.1 - Weakness Status: Acute Assessment and Plan: Reports weakness probably from her breathing problems PT/OT Subjective Date/time seen: 05/08/21 14:58 05/08/2021 interval history:75-year-old female Ex heavy smoker with severe COPD admitted with shortness of breath secondary to exacerbation of COPD seen by pulmonology being treated with prednisone and was tapered down to 40 mg q.day from 60 as patient symptoms improving, will continue on DuoNeb, patient is suspected to have tracheobronchitis and being treated with Levaquin, today patient lungs do sounds some crackles will 1 time dose of IV Lasix 20 mg and monitor, will continue present management will have PT OT evaluate the patient and further recommendation to follow Exam Narrative: appears chronically ill under nourished Patient is comfortable, NAD HEENT: eyes are clear and none icteric LUNGS: bilateral poor air entry with rales and wheezing HEART: RR S1S2 ABD: not distended Lower extremities: no edema SKIN: nonjaundiced Neuro: grossly intact. Objective Data Vital Signs Vital Signs: Vital Signs - 24 hr 05/07/21 15:55 05/07/21 16:00 05/07/21 16:45 Temperature 97 F L Pulse Rate 86 89 Respiratory Rate 24 H Blood Pressure 144/70 H Pulse Oximetry 100 97 05/07/21 18:00 05/07/21 19:13 05/07/21 19:41 T
[2021-05-08] MEDS: FUROSEMIDE INJ 40 MG/4 ML VIAL 20 MG IV PUSH (15:27)
--- NOTE | 2021-05-08 15:58 | PC.NURSE ---
This patient, Ritu Liao, was transferred to [[facility] ] on 05/08/21 at 1545. Personal belongings sent with patient. Report given to [[facility] ]. Appropriate documentation sent with patient.
--- NOTE | 2021-05-08 16:01 | PC.NURSE ---
This patient, Ritu Liao, was received from IMU on 05/08/21 at 1545. Received report from NATASHA [place]. Patient/family oriented to unit policies and routines
[2021-05-08] MEDS: MONTELUKAST SODIUM 10 MG TABLET PO (20:23)
[2021-05-08] MEDS: OXYMETAZOLINE HCL 0.05% NAS 15 ML BTL (*BKC) 1 SPRAY NASAL (21:00)
[2021-05-09] VITALS (11 sets, daily range): BP systolic 121–139; BP diastolic 69–77; PULSE 79–88; RESP 14–20; TEMP 36.2–36.8; O2SAT 93–99
[2021-05-09] MEDS: ALBUTEROL SULFATE NEB 2.5 MG/0.5 ML INH INHALATION ×4 (00:20→20:15)
[2021-05-09] MEDS: IPRATROPIUM BR 0.02% INH SOLN 0.5 MG/2.5 ML VIAL INHALATION ×4 (00:20→20:16)
[2021-05-09 05:47] LABS: Hematocrit 39.9 % (37.0-47.0); Hemoglobin 12.6 g/dL (12.0-15.0); Mean Corpuscular HGB Conc 31.6 g/dl (32-36); Mean Corpuscular Hemoglobin 30.7 pg (26-34); Mean Corpuscular Volume 97.1 fl (80-100); Mean Platelet Volume 9.7 fl (7.4-10.4); Platelet Count Result 227 k/mm3 (150-375); Red Blood Count 4.11 M/mm3 (4.2-5.4); Red Cell Distribution Width 12.7 % (11.5-14.5); White Blood Count 10.5 K/mm3 (4.5-10.0)
[2021-05-09 06:00] LABS: Blood Urea Nitrogen 21 mg/dL (7-17); Calcium 9.1 mg/dL (8.4-10.2); Carbon Dioxide > 40 mmol/L (22-30); Chloride 88 mmol/L (98-107); Estimated CRCL calculation 42 ml/min; Estimated Glomerular Filt Rate > 60; Glucose 96 mg/dL (65-110); Potassium 3.8 mmol/L (3.4-5.0); Sodium 134 mmol/L (137-145)
[2021-05-09] MEDS: predniSONE 20 MG TABLET 40 MG PO (08:29)
[2021-05-09] MEDS: TAMOXIFEN CITRATE (*CHEMO) 10 MG TABLET 20 MG PO (08:29)
[2021-05-09] MEDS: FERROUS SULFATE 324 MG TABLET PO (08:29)
[2021-05-09] MEDS: ENOXAPARIN 40 MG/0.4 ML SYRINGE SUB-Q (08:29)
[2021-05-09] MEDS: amLODIPine BESYLATE 5 MG TABLET 10 MG PO (08:29)
[2021-05-09] MEDS: cycloSPORINE 0.4 ML OPHTH SOLUTION 1 DROP EACH EYE ×3 (08:30→20:29)
--- NOTE | 2021-05-09 10:28 | P.PNIM_ITS ---
Progress Note: A&P Assessment and Plan (1) Acute exacerbation of chronic obstructive airways disease: Code(s): J44.1 - Chronic obstructive pulmonary disease with (acute) exacerbation Status: Acute Assessment and Plan: * Complaints of increased shortness of breath, wheezes, sputum with changes * Appears to be a CO2 retainer * ABG shows repsiratory acidosis with a pH of 7.306 CO2 of 84 * Chest xray shows Severe emphysema * CTA shows Severe emphysema, endobronchial debris, atelectasis, NO PE * WBC 5.4 today * Sputum culture ordered * Home inhalers on hold for now, resume when appropriate * Admit to IMU, probably could downgrade if needed * Continuous BiPAP 04/05 rate of 20 30% FIO2 * Telemetry and pulsox monitoring * Breathing treatments * Prednisone 60 mg p.o. daily * Pulmonology consult thank you for your help * Continue levofloxacin 750mg IV daily * Cornette therapy, IS therapy when indicated 05/08/2021 interval history:75-year-old female Ex heavy smoker with severe COPD admitted with shortness of breath secondary to exacerbation of COPD seen by pulmonology being treated with prednisone and was tapered down to 40 mg q.day from 60 as patient symptoms improving, will continue on DuoNeb, patient is suspected to have tracheobronchitis and being treated with Levaquin, today patient lungs do sounds some crackles will 1 time dose of IV Lasix 20 mg and monitor, will continue present management will have PT OT evaluate the patient and further recommendation to follow. 05/09/2021 interval history:75-year-old female Ex heavy smoker with severe COPD admitted with shortness of breath secondary to exacerbation of COPD seen by pulmonology being treated with prednisone and was tapered down to 40 mg q.day from 60 on 05/07 as patient were symptoms improving, continued on DuoNeb, patient is suspected to have tracheobronchitis and being treated with Levaquin, on 05/08 patient lungs sounded some crackles gave 1 time dose of IV Lasix 20 mg, today patient states urinating more and not a short of breath, will continue present management will have PT OT evaluate the patient and further recommendation to follow (2) Acute and chronic respiratory failure with hypercapnia: Code(s): J96.22 - Acute and chronic respiratory failure with hypercapnia Status: Acute Assessment and Plan: * Patient is on 2.5 L of supplemental oxygen at home continuous, increased to 3L * Reports SPO2 of 66% at home * Currently on BiPAP 04/05 rate of 20 * ABG respiratory acidosis * Supportive care (3) Person under investigation for COVID-19: Code(s): Z20.822 - Contact with and (suspected) exposure to COVID-19 Status: Acute Assessment and Plan: * Home and rapid negative * PCR pending * Isolation for now (4) HTN (hypertension): Code(s): I10 - Essential (primary) hypertension Status: Acute Assessment and Plan: * BP 161/85 * Continue home amlodipine * Trend BP * Adjust therapy as indicated (5) Hx of breast cancer: Code(s): Z85.3 - Personal history of malignant neoplasm of breast Status: Acute Assessment and Plan: * Continue home medications * Follows with Dr. Monaco (6) Weakness: Code(s): R53.1 - Weakness Status: Acute Assessment and Plan: * Reports weakness * probably from her breathing problems * PT/OT Subjective Date/time seen: 05/09/21 10:28 05/08/2021 interval history:75-year-old female Ex
--- NOTE | 2021-05-09 10:28 | PM.IMPN ---
Progress Note: A&P Assessment and Plan (1) Acute exacerbation of chronic obstructive airways disease: Code(s): J44.1 - Chronic obstructive pulmonary disease with (acute) exacerbation Status: Acute Assessment and Plan: Complaints of increased shortness of breath, wheezes, sputum with changes Appears to be a CO2 retainer ABG shows repsiratory acidosis with a pH of 7.306 CO2 of 84 Chest xray shows Severe emphysema CTA shows Severe emphysema, endobronchial debris, atelectasis, NO PE WBC 5.4 today Sputum culture ordered Home inhalers on hold for now, resume when appropriate Admit to IMU, probably could downgrade if needed Continuous BiPAP 04/05 rate of 20 30% FIO2 Telemetry and pulsox monitoring Breathing treatments Prednisone 60 mg p.o. daily Pulmonology consult thank you for your help Continue levofloxacin 750mg IV daily Cornette therapy, IS therapy when indicated 05/08/2021 interval history:75-year-old female Ex heavy smoker with severe COPD admitted with shortness of breath secondary to exacerbation of COPD seen by pulmonology being treated with prednisone and was tapered down to 40 mg q.day from 60 as patient symptoms improving, will continue on DuoNeb, patient is suspected to have tracheobronchitis and being treated with Levaquin, today patient lungs do sounds some crackles will 1 time dose of IV Lasix 20 mg and monitor, will continue present management will have PT OT evaluate the patient and further recommendation to follow. 05/09/2021 interval history:75-year-old female Ex heavy smoker with severe COPD admitted with shortness of breath secondary to exacerbation of COPD seen by pulmonology being treated with prednisone and was tapered down to 40 mg q.day from 60 on 05/07 as patient were symptoms improving, continued on DuoNeb, patient is suspected to have tracheobronchitis and being treated with Levaquin, on 05/08 patient lungs sounded some crackles gave 1 time dose of IV Lasix 20 mg, today patient states urinating more and not a short of breath, will continue present management will have PT OT evaluate the patient and further recommendation to follow (2) Acute and chronic respiratory failure with hypercapnia: Code(s): J96.22 - Acute and chronic respiratory failure with hypercapnia Status: Acute Assessment and Plan: Patient is on 2.5 L of supplemental oxygen at home continuous, increased to 3L Reports SPO2 of 66% at home Currently on BiPAP 04/05 rate of 20 ABG respiratory acidosis Supportive care (3) Person under investigation for COVID-19: Code(s): Z20.822 - Contact with and (suspected) exposure to COVID-19 Status: Acute Assessment and Plan: Home and rapid negative PCR pending Isolation for now (4) HTN (hypertension): Code(s): I10 - Essential (primary) hypertension Status: Acute Assessment and Plan: BP 161/85 Continue home amlodipine Trend BP Adjust therapy as indicated (5) Hx of breast cancer: Code(s): Z85.3 - Personal history of malignant neoplasm of breast Status: Acute Assessment and Plan: Continue home medications Follows with Dr. Monaco (6) Weakness: Code(s): R53.1 - Weakness Status: Acute Assessment and Plan: Reports weakness probably from her breathing problems PT/OT Subjective Date/time seen: 05/09/21 10:28 05/08/2021 interval history:75-year-old female Ex heavy smoker with severe COPD admitted with shortness of breath secondary to exacerbation of COPD seen by pulmonology being treated with prednisone and was tapered down to 40 mg q.day from 60 as patient symptoms improving, will continue on DuoNeb, patient is suspected to have tracheobronchitis and being treated with Levaquin, today patient lungs do sounds some crackles will 1 time dose of IV Lasix 20 mg and monitor, will continue present management will have PT OT e
[2021-05-09] MEDS: MONTELUKAST SODIUM 10 MG TABLET PO (20:29)
[2021-05-10] VITALS (17 sets, daily range): BP systolic 127–136; BP diastolic 73–87; PULSE 71–91; RESP 16–20; TEMP 36.2–36.9; O2SAT 96–99
[2021-05-10] MEDS: IPRATROPIUM BR 0.02% INH SOLN 0.5 MG/2.5 ML VIAL INHALATION ×5 (00:40→20:05)
[2021-05-10] MEDS: ALBUTEROL SULFATE NEB 2.5 MG/0.5 ML INH INHALATION ×5 (00:40→20:00)
[2021-05-10 06:21] LABS: Hematocrit 39.9 % (37.0-47.0); Hemoglobin 12.5 g/dL (12.0-15.0); Mean Corpuscular HGB Conc 31.3 g/dl (32-36); Mean Corpuscular Hemoglobin 30.3 pg (26-34); Mean Corpuscular Volume 96.6 fl (80-100); Mean Platelet Volume 9.7 fl (7.4-10.4); Platelet Count Result 220 k/mm3 (150-375); Red Blood Count 4.13 M/mm3 (4.2-5.4); Red Cell Distribution Width 12.7 % (11.5-14.5); White Blood Count 8.9 K/mm3 (4.5-10.0)
[2021-05-10 06:45] LABS: Blood Urea Nitrogen 19 mg/dL (7-17); Carbon Dioxide > 40 mmol/L (22-30); Chloride 87 mmol/L (98-107); Estimated CRCL calculation 57 ml/min; Estimated Glomerular Filt Rate > 60; Glucose 100 mg/dL (65-110); Potassium 3.6 mmol/L (3.4-5.0); Sodium 134 mmol/L (137-145)
--- NOTE | 2021-05-10 08:00 | PM.IMPN ---
Progress Note: A&P Assessment and Plan (1) Acute exacerbation of chronic obstructive airways disease: Code(s): J44.1 - Chronic obstructive pulmonary disease with (acute) exacerbation Status: Acute Assessment and Plan: Complaints of increased shortness of breath, wheezes, sputum with changes Appears to be a CO2 retainer ABG shows respiratory acidosis with a pH of 7.306 CO2 of 84 Chest xray shows Severe emphysema CTA shows Severe emphysema, endobronchial debris, atelectasis, NO PE WBC 8.9 today Sputum culture normal amanda Home inhalers on hold for now, resume when appropriate Changing to AVAPS Telemetry and pulsox monitoring Breathing treatments Prednisone 60 mg p.o. daily Pulmonology consult thank you for your help Continue levofloxacin 750mg IV daily Cornette therapy, IS therapy when indicated (2) Acute and chronic respiratory failure with hypercapnia: Code(s): J96.22 - Acute and chronic respiratory failure with hypercapnia Status: Acute Assessment and Plan: Patient is on 2.5 L of supplemental oxygen at home continuous, increased to 3L Reports SPO2 of 66% at home Currently on BiPAP 12/6 rate of 20 ABG respiratory acidosis Supportive care Pulm changing to AVAPS mode See pulm note for settings (3) Person under investigation for COVID-19: Code(s): Z20.822 - Contact with and (suspected) exposure to COVID-19 Status: Acute Assessment and Plan: Home and rapid negative PCR negative Isolation for now (4) HTN (hypertension): Code(s): I10 - Essential (primary) hypertension Status: Acute Assessment and Plan: BP 133/73 Continue home amlodipine Trend BP Adjust therapy as indicated (5) Hx of breast cancer: Code(s): Z85.3 - Personal history of malignant neoplasm of breast Status: Acute Assessment and Plan: Continue home medications Follows with Dr. Monaco (6) Weakness: Code(s): R53.1 - Weakness Status: Acute Assessment and Plan: Reports weakness probably from her breathing problems PT/OT Subjective Date/time seen: 05/10/21 0800 Interval history: 05/08/2021 interval history:75-year-old female Ex heavy smoker with severe COPD admitted with shortness of breath secondary to exacerbation of COPD seen by pulmonology being treated with prednisone and was tapered down to 40 mg q.day from 60 as patient symptoms improving, will continue on DuoNeb, patient is suspected to have tracheobronchitis and being treated with Levaquin, today patient lungs do sounds some crackles will 1 time dose of IV Lasix 20 mg and monitor, will continue present management will have PT OT evaluate the patient and further recommendation to follow. 05/09/2021 interval history:75-year-old female Ex heavy smoker with severe COPD admitted with shortness of breath secondary to exacerbation of COPD seen by pulmonology being treated with prednisone and was tapered down to 40 mg q.day from 60 on 05/07 as patient were symptoms improving, continued on DuoNeb, patient is suspected to have tracheobronchitis and being treated with Levaquin, on 05/08 patient lungs sounded some crackles gave 1 time dose of IV Lasix 20 mg, today patient states urinating more and not a short of breath, will continue present management will have PT OT evaluate the patient and further recommendation to follow 05/10/21 0800 Patient was sitting up eating breakfast this morning. Patient stated that she just started walking and doing exercises however when she did walk in the rooms she did desat down to 88%. She is eating could she said she was get stronger. Patient is breathing better lying down and sitting. She states she is urinating okay and was concerned about her sputum culture. She denies chest pain, nausea, vomiting, diarrhea, constipation, weakness, fatigue. Review of Systems Review of Systems: A
--- NOTE | 2021-05-10 08:00 | P.PNIM_ITS ---
Progress Note: A&P Assessment and Plan (1) Acute exacerbation of chronic obstructive airways disease: Code(s): J44.1 - Chronic obstructive pulmonary disease with (acute) exacerbation Status: Acute Assessment and Plan: * Complaints of increased shortness of breath, wheezes, sputum with changes * Appears to be a CO2 retainer * ABG shows respiratory acidosis with a pH of 7.306 CO2 of 84 * Chest xray shows Severe emphysema * CTA shows Severe emphysema, endobronchial debris, atelectasis, NO PE * WBC 8.9 today * Sputum culture normal amanda * Home inhalers on hold for now, resume when appropriate * Changing to AVAPS * Telemetry and pulsox monitoring * Breathing treatments * Prednisone 60 mg p.o. daily * Pulmonology consult thank you for your help * Continue levofloxacin 750mg IV daily * Cornette therapy, IS therapy when indicated (2) Acute and chronic respiratory failure with hypercapnia: Code(s): J96.22 - Acute and chronic respiratory failure with hypercapnia Status: Acute Assessment and Plan: * Patient is on 2.5 L of supplemental oxygen at home continuous, increased to 3L * Reports SPO2 of 66% at home * Currently on BiPAP 12/6 rate of 20 * ABG respiratory acidosis * Supportive care * Pulm changing to AVAPS mode * See pulm note for settings (3) Person under investigation for COVID-19: Code(s): Z20.822 - Contact with and (suspected) exposure to COVID-19 Status: Acute Assessment and Plan: * Home and rapid negative * PCR negative * Isolation for now (4) HTN (hypertension): Code(s): I10 - Essential (primary) hypertension Status: Acute Assessment and Plan: * BP 133/73 * Continue home amlodipine * Trend BP * Adjust therapy as indicated (5) Hx of breast cancer: Code(s): Z85.3 - Personal history of malignant neoplasm of breast Status: Acute Assessment and Plan: * Continue home medications * Follows with Dr. Monaco (6) Weakness: Code(s): R53.1 - Weakness Status: Acute Assessment and Plan: * Reports weakness * probably from her breathing problems * PT/OT Subjective Date/time seen: 05/10/21 0800 Interval history: 05/08/2021 interval history:75-year-old female Ex heavy smoker with severe COPD admitted with shortness of breath secondary to exacerbation of COPD seen by pulmonology being treated with prednisone and was tapered down to 40 mg q.day from 60 as patient symptoms improving, will continue on DuoNeb, patient is suspected to have tracheobronchitis and being treated with Levaquin, today patient lungs do sounds some crackles will 1 time dose of IV Lasix 20 mg and monitor, will continue present management will have PT OT evaluate the patient and further recommendation to follow. 05/09/2021 interval history:75-year-old female Ex heavy smoker with severe COPD admitted with shortness of breath secondary to exacerbation of COPD seen by pulmonology being treated with prednisone and was tapered down to 40 mg q.day fr om 60 on 05/07 as patient were symptoms improving, continued on DuoNeb, patient is suspected to have tracheobronchitis and being treated with Levaquin, on 05/08 patient lungs sounded some crackles gave 1 time dose of IV Lasix 20 mg, today patient states urinating more and not a short of breath, will continue present management will have PT OT evaluate the patient and further recommendation to follow 05/10/21 0800 [place]
[2021-05-10] MEDS: predniSONE 20 MG TABLET 40 MG PO (08:51)
[2021-05-10] MEDS: ENOXAPARIN 40 MG/0.4 ML SYRINGE SUB-Q (08:51)
[2021-05-10] MEDS: FERROUS SULFATE 324 MG TABLET PO (08:51)
[2021-05-10] MEDS: amLODIPine BESYLATE 5 MG TABLET 10 MG PO (08:51)
[2021-05-10] MEDS: TAMOXIFEN CITRATE (*CHEMO) 10 MG TABLET 20 MG PO (08:51)
--- NOTE | 2021-05-10 11:05 | PM.PNPUL ---
Progress Note: A&P Assessment and Plan (1) Acute exacerbation of chronic obstructive airways disease: Code(s): J44.1 - Chronic obstructive pulmonary disease with (acute) exacerbation Status: Acute Assessment and Plan: 05/07 Patient with a history of 40 pack years tobacco use quit 21 years ago, chest x-ray from 1999 demonstrating hyperinflation, earliest CT scan in our hospital's from 02/08/2017 with panlobular emphysema, and a PFT report from 09/25/2003 demonstrating a severe obstructive abnormality. The patient is on 2.5 L nasal cannula 24 hours a day. Currently the patient has a COPD exacerbation with shortness of breath but no change in her sputum with hypercarbic and hypoxemic respiratory failure with a blood gas of 7.32/71/161 and a serum bicarbonate level of 39. Agree with current treatment of COPD exacerbation and I will decrease her dose of prednisone from 60 to prednisone 40 mg p.o. q.day, I will increase her frequency of albuterol and ipratropium nebulizers from Q 6 to q.4 hours and continue Levaquin 750 mg q.day for tracheobronchitis. Of note there is no evidence of a focal pneumonia, fluid overload or a pulmonary embolism on her CT angiogram of the chest. Her COVID RT PCR and influenza swab are negative. currently patient is on 2 L nasal cannula saturations 96% and I will continue this -. 05/10 patient states she has continued to improve over the weekend. Her breathing is better and she now feels 50% back to normal. She has been wearing the noninvasive ventilation at night and stating she has been able to get some sleep. Patient is tolerating noninvasive ventilation with an AVAPS mode and had a blood gas at the end of the night on AVAPS rate of 8, tidal volume 400, EPAP of 4, minimal inspiratory pressure 5, maximal inspiratory pressure 25, 30% FiO2 of 7.50/52/168. I will perform an overnight oximetry tonight on 28% FiO2 From a pulmonary perspective anticipate discharge tomorrow on these Pulmonary medications: Prednisone 40 mg p.o. q.day through 05/12 levofloxacin 750 mg p.o. q.day through 05/12 Advair 500-50 at 1 puff b.i.d. tiotropium bromide Handy haler 18 mcg at 1 puff q.day rescue albuterol 2 puffs q.4 hours p.r.n. shortness of breath or wheezing oxygen at rest and with ambulation per formal home O2 assessment prior to discharge. When sleeps: AVAPS mode rate of 8, tidal volume 400, minimum EPAP of 4, maximum EPAP of 10, minimal inspiratory pressure 5, maximal inspiratory pressure 25, inspiratory time 1.2, rise 5 (slowest setting) and 28% FiO2. Patient was offered to follow-up with us in the Pulmonary Clinic but she states she would like to follow-up with her existing rec therapist Dr. Sarthak Ingram in [place], [place] (2) Acute and chronic respiratory failure with hypercapnia: Code(s): J96.22 - Acute and chronic respiratory failure with hypercapnia Status: Acute Assessment and Plan: 05/07 patient with severe COPD and now hypoxic and hypercarbic respiratory failure. Patient has a blood gas on admission 7.32/71/161 on 3 L nasal cannula and a serum bicarbonate of 39. On review of her medical records her serum bicarbonates have been 38-40 when she was admitted to our hospital on 09/27/20 She has chronic hypercarbic respiratory failure from COPD and she would benefit from a home noninvasive ventilation. noninvasive ventilation would prevent further deterioration and prevent hospitalizations in the future. She would benefit from Patient was tried on BiPAP last night but this was uncomfortable and she was unable to sleep. I adjusted her mask and placed her on Noninvasive ventilation with AVAPS mode and adjusted setting to comfort: rate of 8, tidal volume 400, EPAP 4, minimal inspiratory pressure 5, maximal inspiratory pressure 30, inspiratory time 1.2, rise 5 and 30%. Her peak inspiratory pressure was 7 and Her saturations were 96%. will continue these settings to night.
[2021-05-10] MEDS: cycloSPORINE 0.4 ML OPHTH SOLUTION 1 DROP EACH EYE (20:32)
[2021-05-10] MEDS: MONTELUKAST SODIUM 10 MG TABLET PO (20:32)
[2021-05-11] VITALS (10 sets, daily range): BP systolic 140–145; BP diastolic 78–87; PULSE 70–95; RESP 18–19; TEMP 36.2–37; O2SAT 85–97
[2021-05-11 05:52] LABS: Hematocrit 40.2 % (37.0-47.0); Hemoglobin 12.6 g/dL (12.0-15.0); Mean Corpuscular HGB Conc 31.3 g/dl (32-36); Mean Corpuscular Hemoglobin 30.5 pg (26-34); Mean Corpuscular Volume 97.3 fl (80-100); Mean Platelet Volume 9.7 fl (7.4-10.4); Platelet Count Result 230 k/mm3 (150-375); Red Blood Count 4.13 M/mm3 (4.2-5.4); Red Cell Distribution Width 12.7 % (11.5-14.5); White Blood Count 10.3 K/mm3 (4.5-10.0)
[2021-05-11 06:09] LABS: Blood Urea Nitrogen 22 mg/dL (7-17); Calcium 8.9 mg/dL (8.4-10.2); Carbon Dioxide > 40 mmol/L (22-30); Chloride 88 mmol/L (98-107); Estimated CRCL calculation 49 ml/min; Estimated Glomerular Filt Rate > 60; Glucose 82 mg/dL (65-110); Magnesium 2.2 mg/dL (1.6-2.3); Potassium 3.9 mmol/L (3.4-5.0); Sodium 133 mmol/L (137-145)
--- NOTE | 2021-05-11 08:00 | P.DS_ITS ---
DS: Admitting Diagnosis Discharge Date 05/11/21 0800 Admitting Diagnosis COPD exacerbation DS: Discharge Diagnosis Discharge Diagnosis (1) Acute exacerbation of chronic obstructive airways disease: Code(s): J44.1 - Chronic obstructive pulmonary disease with (acute) exacerbation Status: Acute Assessment and Plan: * Complaints of increased shortness of breath, wheezes, sputum with changes * Appears to be a CO2 retainer * ABG shows respiratory acidosis with a pH of 7.306 CO2 of 84 * Chest xray shows Severe emphysema * CTA shows Severe emphysema, endobronchial debris, atelectasis, NO PE * WBC 8.9 today * Sputum culture normal amanda * Home inhalers on hold for now, resume when appropriate * Changing to AVAPS * Telemetry and pulsox monitoring * Breathing treatments * Prednisone 60 mg p.o. daily * Pulmonology consult thank you for your help * Continue levofloxacin 750mg IV daily * Cornette therapy, IS therapy when indicated (2) Acute and chronic respiratory failure with hypercapnia: Code(s): J96.22 - Acute and chronic respiratory failure with hypercapnia Status: Acute Assessment and Plan: * Patient is on 2.5 L of supplemental oxygen at home continuous, increased to 3L * Reports SPO2 of 66% at home * Currently on BiPAP / rate of 20 * ABG respiratory acidosis * Supportive care * Pulm changing to AVAPS mode * See pulm note for settings (3) Person under investigation for COVID-19: Code(s): Z20.822 - Contact with and (suspected) exposure to COVID-19 Status: Acute Assessment and Plan: * Home and rapid negative * PCR negative * Isolation for now (4) HTN (hypertension): Code(s): I10 - Essential (primary) hypertension Status: Acute Assessment and Plan: * BP 145/87 * Continue home amlodipine * Trend BP * Adjust therapy as indicated (5) Hx of breast cancer: Code(s): Z85.3 - Personal history of malignant neoplasm of breast Status: Acute Assessment and Plan: * Continue home medications * Follows with Dr. Monaco (6) Weakness: Code(s): R53.1 - Weakness Status: Acute Assessment and Plan: * Reports weakness * probably from her breathing problems * PT/OT DS: Summary Hospital Course Hospital Course: Patient is a 75-year-old female with a past medical history of COPD, hypertension, and chronic respiratory failure with hypercarbia who presented to the ed for evaluation of shortness of breath. upon arrival patient's ABG showed respiratory acidosis. CO2 was 84. Patient was placed on BiPAP and was converted to 2 L nasal cannula. Pulmonology was consulted and switch patient to AVAPS. chest x-ray showed severe emphysema CTA showed severe emphysema, endobronchial debris, atelectasis, no PE. White blood cells have remained stable throughout the entire visit. Sputum culture was collected showed normal amanda. Patient was given IV steroids and converted to p.o. steroids. IV levofloxacin was also ordered. Pulmonary has initiated home ventilator support. Patient does see Dr. Ingram and has an appointment for a follow-up on 05/27/2021. patient was tested for COVID with PCR and came back negative. Patient is currently on 2 L nasal cannula and been saturating in the low 90s. Patient has also been up walking in the room and has also been sitting in the chair. Today patient is doing better. She stated that the mask was around her nose too tight las
--- NOTE | 2021-05-11 08:00 | PM.DS ---
DS: Admitting Diagnosis Discharge Date 05/11/21 0800 Admitting Diagnosis COPD exacerbation DS: Discharge Diagnosis Discharge Diagnosis (1) Acute exacerbation of chronic obstructive airways disease: Code(s): J44.1 - Chronic obstructive pulmonary disease with (acute) exacerbation Status: Acute Assessment and Plan: Complaints of increased shortness of breath, wheezes, sputum with changes Appears to be a CO2 retainer ABG shows respiratory acidosis with a pH of 7.306 CO2 of 84 Chest xray shows Severe emphysema CTA shows Severe emphysema, endobronchial debris, atelectasis, NO PE WBC 8.9 today Sputum culture normal amanda Home inhalers on hold for now, resume when appropriate Changing to AVAPS Telemetry and pulsox monitoring Breathing treatments Prednisone 60 mg p.o. daily Pulmonology consult thank you for your help Continue levofloxacin 750mg IV daily Cornette therapy, IS therapy when indicated (2) Acute and chronic respiratory failure with hypercapnia: Code(s): J96.22 - Acute and chronic respiratory failure with hypercapnia Status: Acute Assessment and Plan: Patient is on 2.5 L of supplemental oxygen at home continuous, increased to 3L Reports SPO2 of 66% at home Currently on BiPAP /6 rate of 20 ABG respiratory acidosis Supportive care Pulm changing to AVAPS mode See pulm note for settings (3) Person under investigation for COVID-19: Code(s): Z20.822 - Contact with and (suspected) exposure to COVID-19 Status: Acute Assessment and Plan: Home and rapid negative PCR negative Isolation for now (4) HTN (hypertension): Code(s): I10 - Essential (primary) hypertension Status: Acute Assessment and Plan: BP 145/87 Continue home amlodipine Trend BP Adjust therapy as indicated (5) Hx of breast cancer: Code(s): Z85.3 - Personal history of malignant neoplasm of breast Status: Acute Assessment and Plan: Continue home medications Follows with Dr. Monaco (6) Weakness: Code(s): R53.1 - Weakness Status: Acute Assessment and Plan: Reports weakness probably from her breathing problems PT/OT DS: Summary Hospital Course Hospital Course: Patient is a 75-year-old female with a past medical history of COPD, hypertension, and chronic respiratory failure with hypercarbia who presented to the ed for evaluation of shortness of breath. upon arrival patient's ABG showed respiratory acidosis. CO2 was 84. Patient was placed on BiPAP and was converted to 2 L nasal cannula. Pulmonology was consulted and switch patient to AVAPS. chest x-ray showed severe emphysema CTA showed severe emphysema, endobronchial debris, atelectasis, no PE. White blood cells have remained stable throughout the entire visit. Sputum culture was collected showed normal amanda. Patient was given IV steroids and converted to p.o. steroids. IV levofloxacin was also ordered. Pulmonary has initiated home ventilator support. Patient does see Dr. Ingram and has an appointment for a follow-up on 05/27/2021. patient was tested for COVID with PCR and came back negative. Patient is currently on 2 L nasal cannula and been saturating in the low 90s. Patient has also been up walking in the room and has also been sitting in the chair. Today patient is doing better. She stated that the mask was around her nose too tight last night and it made it hard for her to sleep however she did not have any said desaturations according to the [employer]. she still does have a cough which is yellow. She is eating and doing well there. Did walk patient in the room and she was able to moving pivot and get herself out of bed on her own. Talked to Dr. Queen from pulmonology who stated that he would talk to Dr. Ingram and get the trilogy working for her. Care coordination has set the patient up with home health
--- NOTE | 2021-05-11 08:15 | PM.PNPUL ---
Progress Note: A&P Assessment and Plan (1) Acute exacerbation of chronic obstructive airways disease: Code(s): J44.1 - Chronic obstructive pulmonary disease with (acute) exacerbation Status: Acute Assessment and Plan: 05/07 Patient with a history of 40 pack years tobacco use quit 21 years ago, chest x-ray from 1999 demonstrating hyperinflation, earliest CT scan in our hospital's from 02/08/2017 with panlobular emphysema, and a PFT report from 09/25/2003 demonstrating a severe obstructive abnormality. The patient is on 2.5 L nasal cannula 24 hours a day. Currently the patient has a COPD exacerbation with shortness of breath but no change in her sputum with hypercarbic and hypoxemic respiratory failure with a blood gas of 7.32/71/161 and a serum bicarbonate level of 39. Agree with current treatment of COPD exacerbation and I will decrease her dose of prednisone from 60 to prednisone 40 mg p.o. q.day, I will increase her frequency of albuterol and ipratropium nebulizers from Q 6 to q.4 hours and continue Levaquin 750 mg q.day for tracheobronchitis. Of note there is no evidence of a focal pneumonia, fluid overload or a pulmonary embolism on her CT angiogram of the chest. Her COVID RT PCR and influenza swab are negative. currently patient is on 2 L nasal cannula saturations 96% and I will continue this -. 05/10 patient states she has continued to improve over the weekend. Her breathing is better and she now feels 50% back to normal. She has been wearing the noninvasive ventilation at night and stating she has been able to get some sleep. Patient is tolerating noninvasive ventilation with an AVAPS mode and had a blood gas at the end of the night on AVAPS rate of 8, tidal volume 400, EPAP of 4, minimal inspiratory pressure 5, maximal inspiratory pressure 25, 30% FiO2 of 7.50/52/168. I will perform an overnight oximetry tonight on 28% FiO2 05/11 patient continues to slowly improve. She was able to sleep last night with a noninvasive ventilator and the AVAPS mode on 28% FIO2. She had an overnight oximetry on the settings. Average saturation 93%, lowest saturation 89%, time with saturation less than or equal to 88% was 0 minutes. Patient states she feels she is ready to go home. From a pulmonary perspective patient is ready for discharge home on these Pulmonary medications: Prednisone 40 mg p.o. q.day through 05/12 Levofloxacin 750 mg p.o. q.day through 05/12 Advair 500-50 at 1 puff b.i.d. Tiotropium bromide Handy haler 18 mcg at 1 puff q.day Rescue albuterol 2 puffs q.4 hours p.r.n. shortness of breath or wheezing Oxygen at rest and with ambulation per formal home O2 assessment prior to discharge. I ordered this test. When sleeps: AVAPS mode rate of 8, tidal volume 400, minimum EPAP of 4, maximum EPAP of 10, minimal inspiratory pressure 5, maximal inspiratory pressure 25, inspiratory time 1.2, rise 5 (slowest setting) and 2 L bleed in. Patient states she will follow-up with her existing historiography professor, Dr. Sarthak Ingram, in [place], [place]. I spoke with Dr. Ingram today and gave him clinical updates regarding this hospitalization and the initiation of noninvasive ventilation at night. She already has an appointment scheduled with him on 05/27/2021. Discussed with Shravan Bsiwas, call with questions. (2) Acute and chronic respiratory failure with hypercapnia: Code(s): J96.22 - Acute and chronic respiratory failure with hypercapnia Status: Acute Assessment and Plan: 05/07 patient with severe COPD and now hypoxic and hypercarbic respiratory failure. Patient has a blood gas on admission 7.32/71/161 on 3 L nasal cannula and a serum bicarbonate of 39. On review of her medical records her serum bicarbonates have been 38-40 when she was admitted to our hospital on 09/27/20 She has chronic hypercarbic respiratory failure from COPD and she would benefit from a home noninvasive ventilation. noninvasiv
[2021-05-11] MEDS: amLODIPine BESYLATE 5 MG TABLET 10 MG PO (08:47)
[2021-05-11] MEDS: ENOXAPARIN 40 MG/0.4 ML SYRINGE SUB-Q (08:47)
[2021-05-11] MEDS: predniSONE 20 MG TABLET 40 MG PO (08:47)
[2021-05-11] MEDS: FERROUS SULFATE 324 MG TABLET PO (08:47)
[2021-05-11] MEDS: cycloSPORINE 0.4 ML OPHTH SOLUTION 1 DROP EACH EYE (08:47)
[2021-05-11] MEDS: TAMOXIFEN CITRATE (*CHEMO) 10 MG TABLET 20 MG PO (08:48)
[2021-05-11] MEDS: IPRATROPIUM BR 0.02% INH SOLN 0.5 MG/2.5 ML VIAL INHALATION ×2 (09:02→14:19)
[2021-05-11] MEDS: ALBUTEROL SULFATE NEB 2.5 MG/0.5 ML INH INHALATION ×2 (09:02→14:19)
--- NOTE | 2021-05-11 10:03 | HOMEO2EVAL ---
Evaluation was performed at [facility] Home Oxygen Evaluation RC: Home Oxygen (O2) Evaluation Start: 05/11/21 07:14 Freq: ONCE Status: Active Protocol: RPE Activity Type Activity Date Activity User E-Sign Co-Sign Detail Recorded Client Recorded Date Recorded By Document 05/11/21 09:41 KRM [id number] 05/11/21 10:03 KRM Document 05/11/21 09:43 KRM [email or web address] 05/11/21 10:03 KRM Document 05/11/21 09:45 KRM [email or web address] 05/11/21 10:03 KRM Document 05/11/21 09:47 KRM [email or web address] 05/11/21 10:03 KRM 05/11/21 05/11/21 05/11/21 09:41 09:43 09:45 Home O2 Evaluation Test Phase Resting Resting Resting Oxygen Delivery Room Air Nasal Cannula Nasal Cannula Oxygen Flow Rate (L/min) 1 2 Pulse Oximetry (90-100 %) 85 L 87 L 94 Pulse Rate (60-100 beats/min) 93 93 90 Activity Tolerance Ambulation Distance (feet) Ambulation Distance (meters) Home Oxygen Evaluation Comments Treatment Charges 05/11/21 09:47 Home O2 Evaluation Test Phase Exercise Oxygen Delivery Nasal Cannula Oxygen Flow Rate (L/min) 2 Pulse Oximetry (90-100 %) 90 Pulse Rate (60-100 beats/min) 90 Activity Tolerance Fair Ambulation Distance (feet) 25 Ambulation Distance (meters) 7.61 Home Oxygen Evaluation Comments 2LPM AT REST AND WITH ACTIVITY. NO CHANGES FROM CURRENT HOME O2 SETTING. Treatment Charges O2 Evaluation - Inpatient
--- NOTE | 2021-05-11 10:03 | PCRCNOTE ---
HOME O2 EVALUATION COMPLETED. PT. CURRENTLY WEARS 2LPM AT REST AND WITH ACTIVITY. NO CHANGES NEEDED. DR. HUITRON AND RN AWARE.
[2021-05-11] MEDS: ALPRAZolam (*CRX) 0.125 MG TABLET PO (11:12)
== END 2021-05-11 17:31 | disposition home health service (06) | DRG 190 ==
LOC: ANHED 20:53 → ANHIMU 22:14 → ANH2MED 05-08 15:57
PROVIDERS: Family Medicine; Internal Medicine Pulmonary Disease; Nurse Practitioner; Admitting Provider Internal Medicine; Emergency Provider General Practice; PCP Family Medicine Adolescent Medicine; Visit Provider Internal Medicine
DX: J43.9 Emphysema, unspecified (principal); J96.22 Acute and chronic respiratory failure with hypercapnia; J96.21 Acute and chronic respiratory failure with hypoxia; E46 Unspecified protein-calorie malnutrition; Z68.1 Body mass index [BMI] 19.9 or less, adult; Z20.822 Contact with and (suspected) exposure to COVID-19; I10 Essential (primary) hypertension; H40.9 Unspecified glaucoma; R32 Unspecified urinary incontinence; Z85.3 Personal history of malignant neoplasm of breast; Z99.81 Dependence on supplemental oxygen; Z98.42 Cataract extraction status, left eye; Z98.41 Cataract extraction status, right eye; Z87.891 Personal history of nicotine dependence
CPT/HCPCS: 36415; 36600; 71046; 71275; 80048; 80053; 82375; 82805; 83050; 83735; 85025; 85027; 85380; 85610; 85730; 87070; 87205; 87426; 87804; 93005; 94002; 94003; 94618; 94640; 94762; 96374; 97110; 97116; 97161; 97165; 97530; 97535; 99291; A9270; C9803; G0378; J1650; J1940; J1956; J7512; Q9967; U0003; U0005

== ENCOUNTER 2021-06-30 09:52 | Outpatient (CLI) | payer OTHER, MEDICAID, SELFPAY ==
[2021-06-30 10:07] LABS: Basophils Absolute Auto 0.1 K/mm3 (0.0-0.1); Eosinophils Absolute Auto 0.1 K/mm3 (0-0.3); Eosinophils Percent Auto 1.2 % (0-4.4); Hematocrit 41.6 % (37.0-47.0); Hemoglobin 12.4 g/dL (12.0-15.0); Immature Granulocyte Absolute 0.02 K/mm3 (0.00-0.031); Immature Granulocyte Percent A 0.4 % (0-0.5); Lymphocytes Absolute Auto 1.05 K/mm3 (0.9-3.2); Lymphocytes Percent Auto 20.2 % (18.3-44.2); Mean Corpuscular HGB Conc 29.8 g/dl (32-36); Mean Corpuscular Hemoglobin 29.7 pg (26-34); Mean Corpuscular Volume 99.8 fl (80-100); Mean Platelet Volume 9.2 fl (7.4-10.4); Monocytes Absolute Auto 0.7 K/mm3 (0.1-0.6); Monocytes Percent Auto 12.9 % (2.6-8.5); Neutrophils Absolute Auto 3.4 K/mm3 (1.3-6.7); Neutrophils Percent Auto 64.3 % (45.5-73.1); Platelet Count Result 224 k/mm3 (150-375); Red Blood Count 4.17 M/mm3 (4.2-5.4); Red Cell Distribution Width 13.6 % (11.5-14.5); White Blood Count 5.2 K/mm3 (4.5-10.0)
[2021-06-30 10:16] LABS: Platelet Estimate Adequate (Adequate)
[2021-06-30 10:17] LABS: Stomatocytes 1+ (NORMAL)
[2021-06-30 10:18] LABS: Poikilocytosis 1+ (NORMAL)
[2021-06-30 10:39] LABS: Alanine Aminotransferase 23 U/L (4-35); Albumin Level 4.3 g/dL (3.5-5.1); Alkaline Phosphatase 54 U/L (38-126); Anion Gap 6 mmol/L (8-16); Aspartate Amino Transferase 34 U/L (14-36); Bilirubin,Total 0.3 mg/dL (0.2-1.3); Blood Urea Nitrogen 14 mg/dL (7-17); Calcium 9.2 mg/dL (8.4-10.2); Carbon Dioxide 36 mmol/L (22-30); Chloride 94 mmol/L (98-107); Estimated Glomerular Filt Rate > 60; Glucose 117 mg/dL (65-110); Potassium 3.7 mmol/L (3.4-5.0); Sodium 136 mmol/L (137-145)
[2021-07-03 07:35] LABS: CA 15-3 15 U/mL (<32)
== END 2021-06-30 09:53 | disposition home or self-care (01) ==
PROVIDERS: PCP Family Medicine Adolescent Medicine; Visit Provider Internal Medicine Hematology & Oncology
DX: C50.412 Malignant neoplasm of upper-outer quadrant of left female breast (principal)
CPT/HCPCS: 36415; 80053; 85025; 86300

== ENCOUNTER 2022-01-10 09:11 | Outpatient (CLI) | payer OTHER, SELFPAY ==
[2022-01-10 09:39] LABS: Basophils Percent Auto 0.3 % (0.2-1.2); Eosinophils Percent Auto 0.6 % (0-4.4); Hematocrit 41.2 % (37.0-47.0); Hemoglobin 13.1 g/dL (12.0-15.0); Immature Granulocyte Absolute 0.02 K/mm3 (0.00-0.031); Immature Granulocyte Percent A 0.3 % (0-0.5); Immature Platelet Fraction Pct 7.1 % (0.9-11.2); Lymphocytes Absolute Auto 1.43 K/mm3 (0.9-3.2); Lymphocytes Percent Auto 21.3 % (18.3-44.2); Mean Corpuscular HGB Conc 31.8 g/dl (32-36); Mean Corpuscular Hemoglobin 29.9 pg (26-34); Mean Corpuscular Volume 94.1 fl (80-100); Mean Platelet Volume 10.4 fl (7.4-10.4); Monocytes Absolute Auto 0.6 K/mm3 (0.1-0.6); Monocytes Percent Auto 9.5 % (2.6-8.5); Neutrophils Absolute Auto 4.6 K/mm3 (1.3-6.7); Platelet Count Result 149 k/mm3 (150-375); Red Blood Count 4.38 M/mm3 (4.2-5.4); Red Cell Distribution Width 13.9 % (11.5-14.5); White Blood Count 6.7 K/mm3 (4.5-10.0)
[2022-01-10 09:59] LABS: Alanine Aminotransferase 18 U/L (6-35); Albumin Level 4.2 g/dL (3.5-5.1); Alkaline Phosphatase 69 U/L (38-126); Anion Gap 9 mmol/L (8-16); Aspartate Amino Transferase 33 U/L (14-36); Bilirubin,Total 0.5 mg/dL (0.2-1.3); Blood Urea Nitrogen 25 mg/dL (7-17); Calcium 9.1 mg/dL (8.4-10.2); Carbon Dioxide 28 mmol/L (22-30); Chloride 98 mmol/L (98-107); Estimated Glomerular Filt Rate > 60; Glucose 106 mg/dL (65-110); Potassium 4.2 mmol/L (3.4-5.0); Sodium 135 mmol/L (137-145)
[2022-01-12 19:53] LABS: CA 15-3 23 U/mL (<32)
== END 2022-01-10 09:12 | disposition home or self-care (01) ==
LOC: ANHLAB 09:12
PROVIDERS: PCP Family Medicine Adolescent Medicine; Visit Provider Internal Medicine Hematology & Oncology
DX: C50.412 Malignant neoplasm of upper-outer quadrant of left female breast (principal)
CPT/HCPCS: 36415; 80053; 85025; 85055; 86300

== ENCOUNTER 2022-06-23 08:49 | Outpatient (CLI) | payer OTHER, MEDICAID, SELFPAY ==
--- NOTE | ~2022-06-23 | MM_ITS ---
EXAMINATION: MM screening camila BI w rock HISTORY: Screening mammogram TECHNIQUE: Craniocaudal and mediolateral oblique 3-D tomosynthesis images were obtained and synthetic 2-D images were generated. CAD analysis was submitted and interpreted. COMPARISON: 04/21/2021, 04/29/2020, 04/15/2019 bilateral screening mammogram examinations BREAST PARENCHYMAL COMPOSITION: There are scattered areas of fibroglandular density. FINDINGS: Postoperative change from left partial mastectomy is again noted. There is no evidence of s uspicious mass, calcification, or architectural distortion to suggest malignancy in either breast. Th ere has been no suspicious interval change. IMPRESSION: 1. Status post left partial mastectomy for breast cancer. No mammographic evidence of malignancy. 2. Recommend routine screening mammography in one year. BI-RADS Category 2: Benign finding(s). Reviewed, dictated and finalized at location A. R HELPER IMPRESSION: 1. Status post left partial mastectomy for breast cancer. No mammographic evide nce of malignancy. 2. Recommend routine screening mammography in one year. BI-RADS Category 2: Benign finding(s).
== END 2022-06-23 08:50 | disposition home or self-care (01) ==
PROVIDERS: PCP Family Medicine Adolescent Medicine; Visit Provider Internal Medicine Hematology & Oncology
DX: Z12.31 Encounter for screening mammogram for malignant neoplasm of breast (principal)
CPT/HCPCS: 77063; 77067

== ENCOUNTER 2022-07-18 09:17 | Outpatient (CLI) | payer OTHER, MEDICAID, SELFPAY ==
[2022-07-18 09:40] LABS: Basophils Percent Auto 0.5 % (0.2-1.2); Eosinophils Percent Auto 0.4 % (0-4.4); Hematocrit 43.5 % (37.0-47.0); Hemoglobin 13.7 g/dL (12.0-15.0); Immature Granulocyte Absolute 0.04 K/mm3 (0.00-0.031); Immature Granulocyte Percent A 0.7 % (0-0.5); Lymphocytes Absolute Auto 0.93 K/mm3 (0.9-3.2); Lymphocytes Percent Auto 16.6 % (18.3-44.2); Mean Corpuscular HGB Conc 31.5 g/dl (32-36); Mean Corpuscular Hemoglobin 29.7 pg (26-34); Mean Corpuscular Volume 94.2 fl (80-100); Mean Platelet Volume 9.3 fl (7.4-10.4); Monocytes Absolute Auto 0.4 K/mm3 (0.1-0.6); Monocytes Percent Auto 7.7 % (2.6-8.5); Neutrophils Absolute Auto 4.2 K/mm3 (1.3-6.7); Neutrophils Percent Auto 74.1 % (45.5-73.1); Platelet Count Result 221 k/mm3 (150-375); Red Blood Count 4.62 M/mm3 (4.2-5.4); Red Cell Distribution Width 13.4 % (11.5-14.5); White Blood Count 5.6 K/mm3 (4.5-10.0)
[2022-07-18 10:03] LABS: Alanine Aminotransferase 27 U/L (6-35); Albumin Level 4.5 g/dL (3.5-5.1); Alkaline Phosphatase 78 U/L (38-126); Anion Gap 6 mmol/L (8-16); Aspartate Amino Transferase 36 U/L (14-36); Bilirubin,Total 0.6 mg/dL (0.2-1.3); Blood Urea Nitrogen 19 mg/dL (7-17); Calcium 9.7 mg/dL (8.4-10.2); Carbon Dioxide 35 mmol/L (22-30); Chloride 98 mmol/L (98-107); Estimated Glomerular Filt Rate > 60; Glucose 99 mg/dL (65-110); Potassium 3.8 mmol/L (3.4-5.0); Sodium 139 mmol/L (137-145)
[2022-07-21 05:25] LABS: CA 15-3 20 U/mL (<32)
== END 2022-07-18 09:18 | disposition home or self-care (01) ==
LOC: ANHLAB 09:22
PROVIDERS: PCP Family Medicine Adolescent Medicine; Visit Provider Internal Medicine Hematology & Oncology
DX: C50.412 Malignant neoplasm of upper-outer quadrant of left female breast (principal)
CPT/HCPCS: 36415; 80053; 85025; 86300

== ENCOUNTER 2023-03-09 02:12 | Day surgery (SDC) | payer OTHER, MEDICAID, SELFPAY ==
[2023-03-07 08:06] VITALS: BMI 20.1
--- NOTE | 2023-03-07 08:22 | PC.NURSE ---
Report to the Outpatient Waiting Room, entrance under the green pavilion located off [facility], at time __1230 on date ___03/09/23____. Planned Procedure Time: ___2:30 PM . Time changes happen often and if your time is changed the preop area will call you the afternoon before. - You and your visitor will be asked to self-screen and do not enter if you have any COVID symptoms. - A mask is optional within the hospital at this time. Patients may have clear liquids (water, carbonated beverages, clear teas, apple juice) until 8 hours prior to surgery (0630 AM) with a maximum of 20 ounces. - No food from midnight until time of surgery Take the following medications with a SIP of water the morning of surgery: _AMLODIPINE, INHALERS, EYE DROPS_ DO NOT STOP ANY OF YOUR OTHER PRESCRIPTION MEDICATIONS PRIOR TO SURGERY ?EXCEPT THE FOLLOWING Medications to discontinue per physician VITAMINS OF TODAY Date to take last dose___03/07/23 Please no make-up, nail hong konger, hairspray, perfume, deodorant, or body powder the day of surgery. No jewelry (including any body piercings) or valuables the day of surgery, leave them at home. Please take a shower or bath the night before, or the morning of, surgery with an antibacterial soap. Wear comfortable, loose fitting clothing. Children are encouraged to wear pajamas. - Jewelry must be removed prior to entering the operating room. Rings and piercings that are not removed may be cut off. - The hospital will not accept responsibility for valuables. - Please leave all valuables, including medications, at home the day of surgery. If you are going home after surgery, a licensed sprinkling truck driver must drive you home. - NO public transportation without another adult if you receive anesthesia. - We recommend that an adult stay with you for 24 hours following discharge. - We also recommend that you do not drive, make important decision, drink alcoholic beverages, or take any drugs that were not prescribed by your health care provider for at least 24 hours after your discharge time. For Pediatric surgeries, we recommend two adults accompany the child home. Follow any additional instructions given to you from your surgeon. If you or anyone in your household have experienced Covid symptoms in the past week, please notify your surgeon or the nurse liaison at the phone number below for possible testing. Telephone instructions given to _PT_and asked if any additional questions and then verbalized understanding. Patient advised to call surgeon office or pre surgery nurse liaison [phone] if any additional questions.
--- NOTE | 2023-03-09 08:13 | PM.HPGS ---
History of Present Illness History of Present Illness Chief complaint: trigger finger,dupuytren's contracture right hand Narrative: Ritu Liao is a 77 year old female here for right thumb a1 vanessa release and right small finger fasciectomy for dupuytren's possible pipjoint capsulotomy. Patient seen and examined in pre-operative holding area. No interval change in medical history or symptoms. Continues to desire to proceed with procedure as noted. Reviewed diagnosis, treatment options and alternatives. Reviewed procedure post-op expectations and risks including but not limited to bleeding, infection, injury to tendon/nerve/vessel, decreased hand function, stiffness, RSD, recurrence, incomplete release, no change or worsening of symptoms. Reviewed possible use of assistants during case and their level of participation. Patient stated understanding and signed the consent form wishing to proceed. ROS: unchanged from previous Physical Exam: CV: RRR Pulm: CTAB Extremities: unchanged from previous [facility] Past Medical History Medical History Anxiety Breast cancer Left breast 2016 treated with radiation therapy Chronic respiratory failure with hypoxia and hypercapnia Chronic home O2 of 2.5 L COPD (chronic obstructive pulmonary disease) With PFTs in 2003 demonstrating severe obstructive ventilatory defect with acute bronchodilator response COVID-19 virus infection Essential hypertension Glaucoma Urinary, incontinence, stress female Surgical History Surgical History History of partial mastectomy of left breast July 2016 Previous section Status post cataract extraction of both eyes with insertion of intraocular lens Family History Family History Father , In his 80s Arthritis Hardening of the arteries of the heart Mother , In her 80s Hypertension Hardening of the arteries of the heart Sibling Breast cancer Social History Social History (Updated 01/25/23 @ 09:31 by Tapan Francisco CMA) Social History: Primary care physician: Dr. Jovanny Akins Code status: Modified code no CPR per patient request. She states that if her heart were to stop she is rated go be with God. The patient is okay with a trial of intubation and ventilator support. She is uncertain if she would want tracheostomy. Smoking packs per day: 1 Smoking cigarettes per day: 20.0 Years smoked: 39 Smoking pack-years: 39.00 Smoking status: Former smoker Tobacco type: cigarettes Second hand tobacco smoke exposure: No Additional smoking assessment comments: PT STATES STOPPED SMOKING 1999 Alcohol intake: never Substance use: never Substance use type: does not use Lack of Transportation: No Lack of Food: Never True Current Housing: I Have Housing Concerned About Future Housing: No Difficulty Paying Gas/Electric Bills: No Difficulty Paying for Meds: No Currently Unemployed: No Education: High School Diploma/GED Difficulty w/ Childcare or Family Care: No Living arrangements: with family Additional living arrangements comments: She lives with her of 43 years and 1 of her adult sons. 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 Gender identity (if verbalized by the patient): Female Sexual Orientation (if Verbalized by the Patient): Straight or Heterosexual Spiritual care concerns: No Agree to blood products: Yes Meds Home Medications and Allergies Home Medications Medication Instructions Recorded Confirmed Type calcium carbonate 600 mg-vitamin 1 cap PO DAILY 05/10/19 03/07/23 History D3 5 mcg (200 unit) capsule (Calcium 600 + D(3)) cyclosporine 0.05 % eye drops in a 1 drp EACH EYE Q12H 05/07/21 03/07/23 Hi
--- NOTE | 2023-03-09 08:17 | W.PM.PROC2 ---
Procedure Note - Detailed Date of Procedure 03/09/23 Pre-op Diagnosis right trigger thumb and dupuytren's contracture right small finger Post-op Diagnosis Same Procedure Performed right thumb a1 vanessa release and right small finger fasciectomy Surgeon Nelsy Miramontes MD Opening Machine Cleaner Cristian Mccormick PA-C Anesthesia MAC Description of Procedure The patient was seen in the pre-op are consented and marked. The patient taken back to OR on the stretcher in supine position. Time out performed with anesthesia, surgeon and staff agreeing on patient's name site and surgery to be performed SCDs were placed on the lower extremities and inflated. A tourniquet was placed on right upper extremity and antibiotics given IV After anesthesia administered sedation I injected 10cc 1%lido and 0.5% marcaine plain amongst the operative sites The?right upper extremity?was prepped and draped in sterile fashion the??right upper extremity was? exsanguinated with Esmarch bandage and tourniquet inflated to 250mmHg I proceeded with making an incision over the right small finger dupuytren cord from palm across mpj. I elevated skin flaps above the palmar fascia and identified the start of the cord proximally and dissected around it circumferentially. I transected the cord and proceeded with anterograde dissection along the cord across the mpj and pipjoint flexion creases until I was able to achieve full PIPJoint extension. The radial and ulnar neurovascular bundles were identified and protected throughout the procedure. I irrigated with normal saline, constructed z-plastys across flexion creases and closed skin with 4-0 chromi Next I took my attention to the right thumb where I made an oblique incision over the a1 vanessa through skin and dermis with a 15 blade scalpel. Littler scissors were used to spread down to the a1 vanessa. The a1 vanessa was sharply incised with a 15 blade scalpel. A Ragnell retractior was used to withdraw the FPL for inspection which was free of masses or synovitis. There was no crepitus or triggering on thumb motion. The FPL was allowed to retract back into the wound where I irrigated with normal saline and closure with 4-0 Chromic. A dressing of xeroform, 4x4, ailyn, ulnar gutter splint with small finger in extension was then applied and secured with and GUNNAR bandage after the tourniquet was let down noting the fingers were warm and well perfused. The patient was awaken from anesthesia and transferred to the recovery room in stable condition. Cristian Mccormick PA-C was essential for positionig, retraction, closure and dressing placement. Complications - none EBL- 0cc Disposition - home in stable conditions [facility] Billing Surgery - Charge Forward: Surgery Billing ([id number], [id number] same codes for cristian mccormick pa-c but add modifier as)
[2023-03-09 11:42] VITALS: BP 147/49; PULSE 62; RESP 16; TEMP 37; O2SAT 98
--- NOTE | 2023-03-09 12:01 | WPDANESEPPF ---
Anes - Initial Pre Proc Eval Procedure: Operation Date: 03/09/23 13:30 Proposed Procedures p Right Thumb A-1 Derick Release, - Nelsy Miramontes MD s Right Small Finger Dupuytren's Fasciectomy with Possible Proximal Interphalangeal Joint Capsulotomy - Nelsy Miramontes MD Date/Time: 03/09/23 12:01 Surgeon: Nelsy Miramontes MD Pre Op Diagnosis: trigger finger,dupuytren's contracture right hand Patient Data Age: 77 Gender: F Height: 1.52 m Weight: 46.81 kg Last Vital Signs Temp 98.6 F 03/09/23 11:42 Pulse 62 03/09/23 11:42 Resp 16 03/09/23 11:42 BP 147/49 H 03/09/23 11:42 Pulse Ox 98 03/09/23 11:42 O2 Del Method Nasal Cannula 03/09/23 11:42 O2 Flow Rate 2 03/09/23 11:42 Allergies Allergy/AdvReac Type Severity Reaction Status Date / Time Sulfa (Sulfonamide Allergy Severe INTERNAL Verified 03/07/23 08:03 Antibiotics) BURNING Home Medications Medication Instructions Recorded Confirmed Type calcium carbonate 600 mg-vitamin 1 cap PO DAILY 05/10/19 03/07/23 History D3 5 mcg (200 unit) capsule (Calcium 600 + D(3)) cyclosporine 0.05 % eye drops in a 1 drp EACH EYE Q12H 05/07/21 03/07/23 History dropperette (Restasis) cyanocobalamin (vitamin B-12) 2,500 mcg PO DAILY 08/04/21 03/07/23 History 2,500 mcg chewable tablet albuterol sulfate 90 mcg/actuation 2 puff inhalation QID PRN 03/21/22 03/07/23 Rx aerosol inhaler Shortness Of Breath #8.5 grams tiotropium bromide 18 mcg capsule 18 mcg inhalation DAILY #30 11/02/22 03/07/23 Rx with inhalation device (Spiriva inhalations with HandiHaler) vitamin E (dl, acetate) 450 mg 450 mg PO DAILY 11/02/22 03/07/23 History (1,000 unit) capsule fluticasone 500 mcg-salmeterol 50 See Rx Instructions .Route 12/28/22 03/07/23 Rx mcg/dose blistr powdr for .COMPLEX #60 ea inhalation amlodipine 10 mg tablet See Rx Instructions .Route 01/14/23 03/07/23 Rx .COMPLEX #90 tabs cholecalciferol (vitamin D3) 50 50 mcg PO DAILY 03/07/23 03/07/23 History mcg (2,000 unit) tablet Patient hx anesthesia problems: none Family hx anesthesia problems: none Results Review: All pre-operative results and documents have been reviewed as part of the pre-operative evaluation. [facility] Past Medical History Medical History Anxiety Breast cancer Left breast 2016 treated with radiation therapy Chronic respiratory failure with hypoxia and hypercapnia Chronic home O2 of 2.5 L COPD (chronic obstructive pulmonary disease) With PFTs in 2003 demonstrating severe obstructive ventilatory defect with acute bronchodilator response COVID-19 virus infection Essential hypertension Glaucoma Urinary, incontinence, stress female Surgical History Surgical History History of partial mastectomy of left breast July 2016 Previous section Status post cataract extraction of both eyes with insertion of intraocular lens Family History Family History Father , In his 80s Arthritis Hardening of the arteries of the heart Mother , In her 80s Hypertension Hardening of the arteries of the heart Sibling Breast cancer Social History Social History (Updated 01/25/23 @ 09:31 by Tapan Francisco CMA) Social History: Primary care physician: Dr. Jovanny Akins Code status: Modified code no CPR per patient request. She states that if her heart were to stop she is rated go be with God. The patient is okay with a trial of intubation and ventilator support. She is uncertain if she would want tracheostomy. Smoking packs per day: 1 Smoking cigarettes per day: 20.0 Years smoked: 39 Smoking pack-years: 39.00 Smoking status: Former smoker Tobacco type: cigarettes Second hand tobacco smoke exposure: No Additional
[2023-03-09] MEDS: ceFAZolin 2 GM/D5W 50 ML 2 GM/50 ML BAG IVPB (13:12)
[2023-03-09] MEDS: LIDOCAINE 1% BUFFERED WITH 8.4% SODIUM BICARB 1 ML SYRINGE 20 ML INFILTRATE (13:36)
[2023-03-09 13:56] VITALS: BP 144/57; PULSE 60; RESP 12; O2SAT 99
[2023-03-09] MEDS: LACTATED RINGERS 1,000 ML 30 ML IV CONT (13:56)
[2023-03-09 14:25] VITALS: BP 128/51; PULSE 54; O2SAT 100
[2023-03-09 14:55] VITALS: BP 138/59; PULSE 60
[2023-03-09 15:25] VITALS: BP 132/67; PULSE 65
[2023-03-09] MEDS: oxyCODONE HCL (*CRX) 5 MG TAB IR PO (15:27)
[2023-03-09 15:55] VITALS: BP 148/76; PULSE 78
--- NOTE | 2023-03-09 18:10 | SUR.PHASEII ---
1529: Dr. Miramontes called on cell phone to inform him of patient's exposed fingers being blue in color and her complaining of dressing feeling too tight. Dr. Miramontes called back and told RN to loosen christina wrap. After loosening christina wrap, patient said it felt better and fingers appeared less blue in color with time. Cap refill was normal throughout assessments.
== END 2023-03-09 16:20 | disposition home or self-care (01) ==
PROVIDERS: PCP Family Medicine Adolescent Medicine; Visit Provider Plastic Surgery
PROC: (CPT 26055; principal; 2023-03-09 13:30)
PROC: (CPT 26045; 2023-03-09 13:30)
DX: M72.0 Palmar fascial fibromatosis [Dupuytren] (principal); M65.311 Trigger thumb, right thumb; F41.9 Anxiety disorder, unspecified; I10 Essential (primary) hypertension; N39.3 Stress incontinence (female) (male); J44.9 Chronic obstructive pulmonary disease, unspecified; J96.11 Chronic respiratory failure with hypoxia; J96.12 Chronic respiratory failure with hypercapnia; Z85.3 Personal history of malignant neoplasm of breast; Z80.3 Family history of malignant neoplasm of breast; Z87.891 Personal history of nicotine dependence; Z79.51 Long term (current) use of inhaled steroids
CPT/HCPCS: 26123; 26055; 88304; A9270; J0690; J1100; J2405; J2704; J3010; J7120

== ENCOUNTER 2023-06-26 09:23 | Outpatient (CLI) | payer OTHER, MEDICAID, SELFPAY ==
--- NOTE | ~2023-06-26 | MM_ITS ---
EXAMINATION: MM screening camila BI w rock HISTORY: Screening mammogram, family history of breast cancer in her sister. TECHNIQUE: Craniocaudal and mediolateral oblique 3-D tomosynthesis images were obtained and synthetic 2-D images were generated. CAD analysis was submitted and interpreted. COMPARISON: 06/23/2022, 04/21/2021, 04/29/2020 BREAST PARENCHYMAL COMPOSITION:Dense: The breasts are heterogeneously dense, which may obscure small masses. FINDINGS: Stable postoperative change of the left breast. No suspicious mass, calcification, or archi tectural distortion are identified in either breast to suggest malignancy. There has been no suspicio us interval change. IMPRESSION: No mammographic evidence of malignancy. Recommend routine screening mammography in one year. BI-RADS Category 2: Benign finding(s). Reviewed, dictated and finalized at location . ITION INSTRUCTOR
== END 2023-06-26 09:24 | disposition home or self-care (01) ==
LOC: ANHIMG 09:26
PROVIDERS: PCP Family Medicine Adolescent Medicine; Visit Provider Internal Medicine Hematology & Oncology
DX: Z12.31 Encounter for screening mammogram for malignant neoplasm of breast (principal)
CPT/HCPCS: 77063; 77067

== ENCOUNTER 2023-06-26 10:07 | Outpatient (CLI) | payer OTHER, MEDICAID, SELFPAY ==
[2023-06-26 10:54] LABS: Basophils Percent Auto 0.4 % (0.2-1.2); Eosinophils Percent Auto 0.2 % (0-4.4); Hematocrit 44.5 % (37.0-47.0); Hemoglobin 13.8 g/dL (12.0-15.0); Immature Granulocyte Absolute 0.03 K/mm3 (0.00-0.031); Immature Granulocyte Percent A 0.5 % (0-0.5); Lymphocytes Percent Auto 12.5 % (18.3-44.2); Mean Corpuscular Hemoglobin 29.5 pg (26-34); Mean Corpuscular Volume 95.1 fl (80-100); Mean Platelet Volume 9.1 fl (7.4-10.4); Monocytes Absolute Auto 0.5 K/mm3 (0.1-0.6); Monocytes Percent Auto 9.1 % (2.6-8.5); Neutrophils Absolute Auto 4.4 K/mm3 (1.3-6.7); Neutrophils Percent Auto 77.3 % (45.5-73.1); Platelet Count Result 199 k/mm3 (150-375); Red Blood Count 4.68 M/mm3 (4.2-5.4); Red Cell Distribution Width 13.6 % (11.5-14.5); White Blood Count 5.6 K/mm3 (4.5-10.0)
[2023-06-26 12:15] LABS: Alanine Aminotransferase 17 U/L (6-35); Albumin Level 4.3 g/dL (3.5-5.1); Alkaline Phosphatase 67 U/L (38-126); Aspartate Amino Transferase 30 U/L (14-36); Bilirubin,Total 0.4 mg/dL (0.2-1.3); Blood Urea Nitrogen 20 mg/dL (7-17); Calcium 10.2 mg/dL (8.4-10.2); Carbon Dioxide > 40 mmol/L (22-30); Chloride 97 mmol/L (98-107); Estimated Glomerular Filt Rate > 60; Glucose 121 mg/dL (65-110); Potassium 4.2 mmol/L (3.4-5.0); Sodium 139 mmol/L (137-145)
== END 2023-06-26 10:08 | disposition home or self-care (01) ==
PROVIDERS: PCP Family Medicine Adolescent Medicine; Visit Provider Internal Medicine Hematology & Oncology
DX: C50.412 Malignant neoplasm of upper-outer quadrant of left female breast (principal)
CPT/HCPCS: 36415; 80053; 85025

== ENCOUNTER 2024-07-01 09:50 | Outpatient (CLI) | payer OTHER, MEDICAID, SELFPAY | END 2024-07-01 09:51 | disposition home or self-care (01) | LOC: ANHIMG 09:55 | PROVIDERS: PCP Family Medicine Adolescent Medicine; Visit Provider Internal Medicine Hematology & Oncology | DX: Z12.31 Encounter for screening mammogram for malignant neoplasm of breast (principal); C50.412 Malignant neoplasm of upper-outer quadrant of left female breast; Z17.0 Estrogen receptor positive status [ER+]; R92.8 Other abnormal and inconclusive findings on diagnostic imaging of breast; Z80.3 Family history of malignant neoplasm of breast | CPT/HCPCS: 77063; 77067 ==

== ENCOUNTER 2024-07-01 10:21 | Outpatient (CLI) | payer OTHER, MEDICAID, SELFPAY ==
[2024-07-01 10:48] LABS: Basophils Percent Auto 0.5 % (0.2-1.2); Eosinophils Percent Auto 0.4 % (0-4.4); Hematocrit 41.6 % (37.0-47.0); Immature Granulocyte Absolute 0.02 K/mm3 (0.00-0.031); Immature Granulocyte Percent A 0.4 % (0-0.5); Lymphocytes Absolute Auto 1.23 K/mm3 (0.9-3.2); Mean Corpuscular HGB Conc 31.3 g/dl (32-36); Mean Corpuscular Hemoglobin 29.3 pg (26-34); Mean Corpuscular Volume 93.9 fl (80-100); Mean Platelet Volume 9.5 fl (7.4-10.4); Monocytes Absolute Auto 0.5 K/mm3 (0.1-0.6); Monocytes Percent Auto 9.1 % (2.6-8.5); Neutrophils Absolute Auto 3.8 K/mm3 (1.3-6.7); Neutrophils Percent Auto 67.6 % (45.5-73.1); Platelet Count Result 197 k/mm3 (150-375); Red Blood Count 4.43 M/mm3 (4.2-5.4); Red Cell Distribution Width 13.7 % (11.5-14.5); White Blood Count 5.6 K/mm3 (4.5-10.0)
[2024-07-01 11:33] LABS: Alanine Aminotransferase 16 U/L (6-35); Albumin Level 4.4 g/dL (3.5-5.1); Alkaline Phosphatase 57 U/L (38-126); Aspartate Amino Transferase 24 U/L (14-36); Bilirubin,Total 0.4 mg/dL (0.2-1.3); Blood Urea Nitrogen 22 mg/dL (7-17); Carbon Dioxide > 40 mmol/L (22-30); Chloride 92 mmol/L (98-107); Estimated Glomerular Filt Rate > 60; Glucose 118 mg/dL (65-110); Potassium 3.8 mmol/L (3.4-5.0); Sodium 139 mmol/L (137-145)
[2024-07-03 02:04] LABS: CA 15-3 17 U/mL (<32)
== END 2024-07-01 10:22 | disposition home or self-care (01) ==
LOC: ANHLAB 10:22
PROVIDERS: PCP Family Medicine Adolescent Medicine; Visit Provider Internal Medicine Hematology & Oncology
DX: C50.411 Malignant neoplasm of upper-outer quadrant of right female breast (principal); Z17.0 Estrogen receptor positive status [ER+]
CPT/HCPCS: 36415; 80053; 85025; 86300

== ENCOUNTER 2024-07-24 10:17 | Outpatient (CLI) | payer OTHER, MEDICAID, SELFPAY ==
--- NOTE | ~2024-07-24 | MMUS_ITS ---
EXAMINATION: MM diagnostic camila RT w rock, US breast RT limited HISTORY: History of left-sided breast cancer post breast conservation therapy in 2017. Significant fa josue history of breast cancer (diagnosed in both the patient's sister and maternal grandmother). She returns today for possible developing asymmetry in the right breast on CC view only detected on scree [facility] mammography dated 07/01/2024 TECHNIQUE: Additional 3-D tomosynthesis images of right breast were performed and synthetic 2-D image s were generated. CAD analysis was submitted and interpreted. High resolution limited right breast ultrasound was performed. COMPARISON: 07/01/2024 and dating back to 04/29/2020 BREAST PARENCHYMAL COMPOSITION:Dense: The breasts are extremely dense, which lowers the sensitivity o f mammography. FINDINGS: MAMMOGRAPHIC FINDINGS: The possible developing asymmetry on CC view completely effaces with spot compression likely represen ting a summation artifact (overlapping fibroglandular tissues). Given patient's history, a focused right breast ultrasound will be performed for confirmation. ULTRASOUND: Sonographic evaluation of the inner quadrant of the right breast demonstrates extremely dense breast tissue, with benign fibroglandular elements without a cystic or solid lesion of concern. IMPRESSION: No mammographic/tomographic or sonographic evidence to suggest the presence of malignancy within the right breast, as detailed above. Follow-up as per ACR/ACS guidelines is recommended. BI-RADS Category 2: Benign finding(s). Reviewed, dictated and finalized at location A. IMPRESSION: No mammographic/tomographic or sonographic evidence to suggest the presence of malignancy within the right breast, as detailed above. Follow-up as per ACR/ACS guidelines is recommended. BI-RADS Category 2: Benign finding(s).
--- OUTSIDE RECORDS SUMMARY | 2024-07-24 11:38 | XMS_ITS | Continuity of Care Document ---
Author Organization [facility] Address [id number] [place] [address] [address] [place] [address] Phone Care Team Providers Care Detail Supervisor Name Role Phone Luisa Goel Unavailable Unavailable Advance Directives Directive Yes / No Effective Date File Name No Information Encounters Encounter Description Practice Location Reason(s) For Visit Diagnoses Date Provider Providers Copied on Encounter [facility], [address], [place], [place], [id number], [place] tel:[phone] [facility] No Information [address]. [address] [facility] , [address], [place], [address], [place]. tel:[phone] Family History Family Member Type Diagnosis Age At Onset No Information Payers Payer name Insurance type Covered libertarian ID Authoriza tion(s) No Information Social History [...]
--- OUTSIDE RECORDS SUMMARY | 2024-07-24 11:38 | XMS_ITS | Clinical Summary ---
Author Organization [facility] Address [address] [place] [address] Care Team Providers Care Manufacturing Quality Manager Name Role Phone Jovanny Hoffman MD Primary Care Provider +1- [phone] Allergies Active Allergy Reactions Criticality Noted Date Comments Sulfa (Sulfonamide Antibiotics) Unknown,Other (See Comments) High 08/17/2016 Colon and blisters internally and externally Medications amLODIPine (NORVASC) 10 mg tablet Take 10 mg by mouth daily. Active tiotropium (SPIRIVA) 18 mcg capsule Take 18 mcg by inhalation daily. Active FLUZONE HIGH-DOSE , PF, 180 mcg/0.5 mL Syringe syringe ADM 0.5ML IM UTD 0 8 Active albuterol HFA 90 mcg inhaler 0 Active albuterol (PROVENTIL,VENTOL IN) 2.5 mg /3 mL (0.083 %) Solution for Nebulization 0 Active cholecalciferol, Vitamin D3, 50 mcg (2,000 unit) Tablet Take by mouth. Activ e multivitamin (DAILY-ROBERT) tablet Take 1 Tablet by mouth. Active OXYGEN-AIR DELIVERY SYSTEMS MISC 2 L/min. Active fluticasone propion-salmetero L (ADVAIR DISKUS,WIXELA INHUB) 500-50 mcg/dose disk inhaler Take 1 Puff by inhalation. 0 Active vitamin B complex Tablet Sustained Release Take 1 Tablet by mouth daily. Active Restasis 0.05 % emulsion INSTILL 1 DROP INTO EACH EYE TWICE DAILY 2 Active vitamin E 1,000 unit Capsule Take 1,000 Units by mouth daily. 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 (SERMs) 05/03/2018 History of external beam radiation therapy 10/11 Lymphedema of breast 10/11/2017 Vitamin D deficiency 11/09/2016 Age-related osteoporosis wit hout current pathological fracture 11/09/2016 Post-menopausal 09/21/2016 Malignant neoplasm of upper- outer quadrant of left female breast 08/17/2016 Resolved Problems Problem Noted Date Diagnosed Date Resolved Date Aromatase inhibitor use 10/11/201706/2018 Encounters Date Type Department Care Team Description 07/17/2024 External Device Data STL ABSTRACTION Provider, Abstract 07/17/2024 External Device Data STL ABSTRACTION Provider, Abstract 07/10/2024 10:00 AM CDT Office Visit [facility] Oncology and Hematology - [place] [address] [place] [address] Mikey Monaco MD Malignant neoplasm of upper-outer quadrant of left breast in female, estrogen receptor positive (CMS/HCC) (Primary Dx) 07/06/2024 External Device Data STL ABSTRACTION Provider, Abstract 07/05/2024 External Device Data STL ABSTRACTION Provider, Abstract 07/03/2024 Orders Only [facility] Oncology and Hematology - [place] [address] [place] [address] Mikey Monaco MD 07/02/2024 Orders Only [facility] Oncology and Hematology - [place] [address] [place] [address] Mikey Monaco MD 07/01/2024 Orders Only [facility] Oncology and Hematology - [place] [address] [place] [address] Mikey Monaco MD 06/18/2024 External Device Data ST[facility] ABSTRACTION Provider, Abstract 05/28/2024 External Device Data ST[facility] ABSTRACTION Provider, Abstract from Last 3 Months Family History Medical History Relation Name Comments Liver Disease Brother Heart Disease Father Heart Disease Mother Breast Cancer Sister Relation Name Status Comments Brother Father Mother Sister Social History Tobacco Use Types Packs/Day Years Used Date Smoking Tobacco: Former Cigarettes 1 40 0 08/18/1959 - 08/18/1999 Smokeless Tobacco: Never Tobacco Cessation:Counseling Given: Not Answered Alcohol Use Standard Drinks/Week Comments No 0 (1 standard drink = 0.6 oz pur e alcohol) Comments No Sex and Gender Information Value Date Recorded Sex Assigned at Not on file Legal Sex Female 10:08 AM CDT Gender Identity Not on file Sexual Orientation Not on file Last Filed Vital Signs Vital Sign Reading Time Taken Comments Blood Pressure 132/75 07/10/2024 9:52 AM CDT Pulse 71 07/10/2024 9:52 AM CDT Temperature 36.6 C (97.8 F) 07/10/2024 9:52 AM CDT Respiratory Rate 15 07/10/2024 9:52 AM CDT Oxygen Saturation 94% 07/10/2024 9:52 AM CDT Inhaled Oxygen Concentration - - Weight 42.3 kg (93 lb 3.2 oz) 07/10/2024 9:52 AM CDT Height 152.4 cm (5') 01/17/2022 9:51 AM CDT Body Mass Index 18.2 01/17/2022 9:51 AM CDT Plan of Treatment Upcoming Encounters Date Type Department Care Team (Late st Contact Info) Description 07/31/2024 4:30 PM CDT Telephone Check Up [facility] Oncology and Hematology [facility] [address] [place] [address] Mikey Monaco MD [facility] [place] [address] [place] [address] 07/16/2025 10:15 AM CDT Office Visit [facility] Oncology and Hematology - [place] [address] [place] [address] Mikey Monaco MD [facility] [place] [address] [place] [address] Health Maintenance Due Date Last Done Comments DTAP/TDAP/TD VACCINES (1 - Tdap) 09/27/1963 ZOSTER VACCINE (1 of 2) 1994 PNEUMOCOCCAL VACCINE 50+ YEA RS (2 of 2 - PCV) 04/09/2018 04/09/2017, 04/07/2017 RSV VACCINE (60+ or ) (1 - 1-dose 75+ series) 09/27/2019 INFLUENZA VACCINE (#1) 2023 01/14/2020, 2018 COVID-19 Vaccine (3 - season) 2023, 06/22/2020 [place]) Prev entative Visit/Annual Wellness Visit 05/01/2024 OSTEOPOROSIS SCREENING Completed 09/28/2016 Procedures Procedure Name Priority Date/Time Associated Diagnosis Comments CBC WITH AUTODIFFERENTIAL Routine 2024 2:42 PM MANAGER COMMUNITY RELATIONS COMPREHENSIVE METABOLIC PANEL Routine 07/01/2024 10:49 AM MANAGER COMMUNITY RELATIONS MAMMO SCREENING BILAT Routine 07/01/2024 10:27 AM MANAGER COMMUNITY RELATIONS CHG CA 15 3 Routine 07/01/2024 9:26 AM MANAGER COMMUNITY RELATIONS XR DEXA BONE DENSITY AXIAL 1 OR MORE SITES Routine 09/28/2016 Malignant neoplasm of upper-outer quadrant of left female breast (CMS/HCC) Routine general medical examination at a health care facility Post-menopausal from Last 3 Months or Most Recently Relevant to Health Maintenance Results * CBC WITH AUTODIFFERENTIAL (07/01/2024 2:42 PM MANAGER COMMUNITY RELATIONS) Blood us Mikey Monaco MD HEMATOLOGY ORDERABLES Final Res ult * COMPREHENSIVE METABOLIC PANEL (07/01/2024 10:49 AM MANAGER COMMUNITY RELATIONS) Blood us Mikey Monaco MD CHEMISTRY ORDERABLES Final Resu lt * MAMMO SCREENING BILAT (07/01/2024 10:27 AM MANAGER COMMUNITY RELATIONS) Anatomical Region Laterality Modality Breast Bilateral Mammography us Mikey Monaco MD MAMMO ORDERABLES Final Result * CHG CA 15 3 (07/01/2024 9:26 AM MANAGER COMMUNITY RELATIONS) us Mikey Monaco MD CHG - LABORATORY Final Result * XR DEXA BONE DENSITY AXIAL 1 OR MORE SITES (09/28/2016) Anatomical Region Laterality Modality Other Mikey Monaco MD DIAGNOSTIC IMAGING ORDERABLES E dited Result - Final from Last 3 Months or Most Recently Relevant to Health Maintenance Insurance [place] Care Teams Manufacturing Quality Manager Relationship Specialty Start Date End Date Jovanny Hoffman MD PCP - General Family Practice 02/06/17
--- OUTSIDE RECORDS SUMMARY | 2024-07-24 11:38 | XMS_ITS | Clinical Summary ---
Author Organization [facility] Address [address] [place] [address] Care Team Providers Care Satellite Instruction Facilitator Name Role Phone Jovanny Hoffman MD Primary Care Provider +1- [phone] Allergies Active Allergy Reactions Criticality Noted Date Comments Sulfa Antibiotics Unknown 09/27/2016 Medications OXYGEN 2 L/min. Active amlodipine 10 MG tablet Active montelukast (SINGULAIR) 10 MG tablet Active tamoxifen 20 MG tablet Take by mouth. 7 Active multivitamin tablet Take 1 tablet by mouth daily. Active Cholecalciferol (VITAMIN D) 2000 units Tab Active Calcium Carb-Cholecalcif willard (CALCIUM CARBONATE-VITAMI N D) 600-200 MG-UNIT tablet Take 1 tablet by mouth daily. Active acetaminophen-co deine 300-30 MG tablet TAKE 1 TABLET BY MOUTH FOUR TIMES A DAY NEEDED FOR PAIN 0 Active LORazepam 0.5 MG tablet 0 Active predniSONE 10 mg tablet TAKE FOUR TABLETS BY MOUTH DAILY STARTING ON 03/05 0 Active fluticasone propionate 50 MCG/ACT nasal spray 2 sprays daily. 0 Active ferrous sulfate EC 324 (65 Fe) MG tablet Take 325 mg by mouth daily. Active calcium carbonate-vitami n D 600-200 MG-UNIT Tab Take 1 tablet by mouth. Active Vitamins-Lipotro pics (COMPLEX [id number]) Tab CR Take 1 tablet by mouth daily. Active fluticasone-salm eterol 500-50 MCG/DOSE inhalerIndicatio ns:Chronic obstructive pulmonary disease, unspecified COPD type (CMS/HCC HHS/HCC) INHALE 1 DOSE BY MOUTH TWICE DAILY 180 each 3 1 Active tiotropium (SPIRIVA HANDIHALER) 18 MCG inhalation capsuleIndicatio ns:Chronic obstructive pulmonary disease, unspecified COPD type ([facility]) Inhale 1 puff by mouth once daily 90 capsule 3 1 Active albuterol sulfate HFA (PROAIR HFA) 108 (90 Base) MCG/ACT inhalerIndicatio ns:Chronic obstructive pulmonary disease, unspecified COPD type ([facility]) Inhale 2 puffs into the lungs every 6 (six) hours as needed for Wheezing. 6.7 g 6 1 Active AZITHROMYCIN 250 MG tabletIndication s:Chronic obstructive pulmonary disease, unspecified COPD type ([facility]) TAKE 1 TABLET BY MOUTH THREE TIMES A WEEK 30 tablet 3 1 Active RESTASIS 0.05 % ophthalmic emulsion 1 Active Active Problems Problem Noted Date Diagnosed Date Aromatase inhibitor use 10/11/2017 History of external beam radiation therapy 10/11 Lymphedema of breast 10/11/2017 Age-related osteoporosis wit hout current pathological fracture 11/09/2016 Vitamin D deficiency 11/09/2016 Chronic respiratory failure with hypoxia ([facility]) 10/07/2016 Malignant neoplasm of breast ([facility]) 0 10/07/2016 COPD exacerbation ([facility]) 10/07/2016 Acute on chronic respiratory failure with hypoxemia ([facility]) 09/27/2016 COPD (chronic obstructive pu lmonary disease) ([facility]) 09/27/2016 Essential hypertension 09/27/2016 Post-menopausal 09/21/2016 Malignant neoplasm of upper- outer quadrant of left female breast ([facility]) 08/17/2016 Immunizations Name Administration Dates Next Due Fluzone High Dose - >Age 65 (Prefilled Syringe) 01/14/2020,01/15/2019 Influenza (Generic) 04/07/2017 Influenza Adult (Generic) 04/09/2018 Influenza Virus, Split 6-35 Mo 04/09/2018 PFIZER COVID-19 (ORIGINAL FO RMULATION, PURPLE CAP) mRNA, LNP-S, PF, 30 MCG/0.3 ML DOSE 07/13/2020,06/22/2020 Pneumococcal (Generic) 04/07/2017 Pneumococcal (Pneumovax 23) 04/09/2017 Family History Medical History Relation Comments Sleep Apnea Father Asthma Mother Hypertension Mother Relation Status Comments Father Mother Social History Tobacco Use Types Packs/Day Years Used Date Smoking Tobacco: Former Cigarettes 0.5 39 1 960 - 1999 Smokeless Tobacco: Never Tobacco Cessation:Counseling Given: Yes Alcohol Use Standard Drinks/Week Comments No 0 (1 standard drink = 0.6 oz pur e alcohol) AUDIT-C Answer Date Recorded Frequency of Alcohol Consumption Never 04/09/2018 Average Number of Drinks Not on file 018 Frequency of Binge Drinking Not on file 03/31 PHQ-2 Answer Date Recorded PHQ-2 Score - If the patient scores above 3, please move on to questions 3-9 0 05/26/2020 Comments No Sex and Gender Information Value Date Recorded Sex Assigned at Not on file Legal Sex Female 7:23 PM CDT Gender Identity Not on file Sexual Orientation Not on file Last Filed Vital Signs Vital Sign Reading Time Taken Comments Blood Pressure 134/70 04/12/2021 9:48 AM PROCESS ENG Pulse 83 04/12/2021 9:48 AM PROCESS ENG Temperature 36.7 C (98 F) 04/12/2021 9:48 AM PROCESS ENG Respiratory Rate 18 04/12/2021 9:48 AM PROCESS ENG Oxygen Saturation 91% 04/12/2021 9:4 8 AM PROCESS ENG 2L pulse dose Inhaled Oxygen Concentration - - Weight 50.8 kg (111 lb 14.4 oz) 04/12/2021 9:48 AM PROCESS ENG Height 152.4 cm (5') 04/12/2021 9:48 AM PROCESS ENG Body Mass Index 21.85 04/12/2021 9:48 AM PROCESS ENG Plan of Treatment Health Maintenance Due Date Last Done Comments Hepatitis C 1962 DTaP, Tdap and Td Vaccines (1 - Tdap) 09/27/1963 Zoster Vaccines (1 of 2) 1994 Annual Medicare Wellness Visit 2009 Dexa Scan (General) 2009 Pneumococcal Vaccine: 65+ Years (2 of 2 - PCV) 04/09/2018 04/09/2017 RSV Immunization or 60+ Years (1 - 1-dose 75+ series) 09/27/2019 COVID-19 Vaccine (3 - season) 2023 07/13/2020, 06/22/2020 Influenza Adult (#1) 2024 01/14/2020, 01/15/2019, 04/09/2018, Additional history exists Meningococcal B Vaccine Aged Out No l onger eligible based on patient's age to complete this topic Meningococcal Vaccine Aged Out No evelio wendy eligible based on patient's age to complete this topic RSV Immunizations Under 20 Months Aged Out No longer eligible based on patient's age to complete this topic Insurance [facility] MEDICAID Care Teams Satellite Instruction Facilitator Relationship Specialty Start Date End Date Jovanny Hoffman MD [address] [address] PCP - General FAMILY PRACTICE 03/05/18
--- OUTSIDE RECORDS SUMMARY | 2024-07-24 11:38 | XMS_ITS | Encounter Summary ---
Author Organization [facility] Address [address] [place] [address] Care Team Providers Care Automatic Thread Winder Name Role Phone Jovanny Hoffman MD Primary Care Provider +1- [phone] Encounter Details Date Type Department Care Team (Late Contact Info) Description 08/19/2016 Chart Note [facility] Radiation Therapy [address] [place] [address] [place] [address] [place] [address] Social History Tobacco Use Types Packs/Day Years Used Date Smoking Tobacco: Former Cigarettes 1 40 0 08/18/1959 - 08/18/1999 Alcohol Use Standard Drinks/Week Comments No 0 (1 standard drink = 0.6 oz pur e alcohol) Comments No Sex and Gender Information Value Date Recorded Sex Assigned at Not on file Legal Sex Female 10:08 AM CDT Gender Identity Not on file Sexual Orientation Not on file documented as of this encounter Plan of Treatment Upcoming Encounters Date Type Department Care Team (Late Contact Info) Description 07/31/2024 4:30 PM CDT Telephone Check Up [facility] Oncology and Hematology - [place] [address] [place] [address] Mikey Monaco MD [address] [facility] [address] [place] [address] 07/16/2025 10:15 AM CDT Office Visit [facility] Oncology and Hematology [place] [address] [place] [address] Mikey Monaco MD [address] [facility] [address] [place] [address] documented as of this encounter Visit Diagnoses Not on filedocumented in this encounter Care Teams Automatic Thread Winder Relationship Specialty Start Date End Date Jovanny Hoffman MD PCP - General Family Practice 02/06/17 documented as of this encounter
== END 2024-07-24 10:18 | disposition home or self-care (01) ==
PROVIDERS: PCP Family Medicine Adolescent Medicine; Visit Provider Internal Medicine Hematology & Oncology
DX: C50.412 Malignant neoplasm of upper-outer quadrant of left female breast (principal); Z17.0 Estrogen receptor positive status [ER+]; R92.8 Other abnormal and inconclusive findings on diagnostic imaging of breast
CPT/HCPCS: 76642; 77061; 77065; G0279

== ENCOUNTER 2024-12-09 10:53 | Inpatient (IN) | payer OTHER, MEDICAID, SELFPAY ==
[2024-12-09] VITALS (13 sets, daily range): BP systolic 125–142; BP diastolic 61–70; PULSE 63–95; RESP 14–34; TEMP 35.5–37.2; O2SAT 94–98; BMI 19.1
--- NOTE | ~2024-12-09 | CT_ITS ---
EXAMINATION: CTA chest PE protocol DATE: 12/09/2024 13:43 INDICATION: Shortness of breath TECHNIQUE: Computed tomography (CT) pulmonary angiogram of the chest was performed with 100 mL Omnipa que-350 intravenous contrast. Additional 3D reconstructions utilizing coronal maximum intensity proje ction (MIP) were performed. Automated exposure control and iterative reconstruction technique were em ployed. The dose-length product was 145.65 mGy-cm. COMPARISON: 05/06/2021 FINDINGS: No pulmonary emboli. Severe emphysema. There is septal line thickening and fluid filling of the cysti c airspaces in the right upper lobe with dense region of consolidation in the suprahilar region consi stent with pneumonia. Is also a small region of peripheral consolidation along a band of scarring in the left upper lobe which could also represent atelectasis or pneumonia. Very small right pleural eff usion. Heart size is normal. Atherosclerotic coronary artery calcific location. No pericardial effusi on. Thoracic aorta is normal in caliber with no dissection. No pathologically enlarged thoracic lymph adenopathy. Likely benign 6 mm low-attenuation nodule in the right thyroid lobe. Multiple splenic anayeli cific lesions consistent with old granulomatous disease. Couple small regions of cortical scarring at the left kidney consistent with sequela of prior infection or infarction. Visualized upper abdomen i s otherwise unremarkable. Mild thoracic spondylosis. IMPRESSION: 1. No pulmonary embolism. 2. Severe emphysema with extensive airspace disease in the right upper lobe including dense consolida tion in the suprahilar region consistent with pneumonia. Possible additional small region of pneumoni a versus atelectasis at the peripheral left upper lobe. 3. Very small right pleural effusion. Reviewed, dictated and finalized at location A. IMPRESSION: 1. No pulmonary embolism. 2. Severe emphysema with extensive airspace disease in the right upper lobe inc luding dense consolidation in the suprahilar region consistent with pneumonia. Possible additional small region of pneumonia versus atelectasis at the periphe ral left upper lobe. 3. Very small right pleural effusion.
--- NOTE | ~2024-12-09 | XR_ITS ---
EXAMINATION: XR chest 1V portable DATE: 12/16/2024 08:04 INDICATION: TECHNIQUE: COMPARISON: Chest radiograph dated FINDINGS: The cardiomediastinal silhouette is normal. Visualized bones and soft tissues are unremarkable. IMPRESSION: 1. Reviewed, dictated and finalized at location A. IMPRESSION: 1.
--- NOTE | ~2024-12-09 | XR_ITS ---
XR chest 1V portable 12/09/2024 11:54 Indication: Shortness of breath and weakness Procedure: AP portable chest Comparison: 05/06/2021 Findings: Heart size normal. The lungs are hyperinflated which is consistent with, but not diagnostic of chronic obstructive pulmonary disease. There is patchy bilateral airspace disease, superimposed o n chronic interstitial lung disease and scarring in the lung apices. There is apical pleural thickeni ng/scarring. Impression: 1: Patchy bilateral airspace disease, compatible with pneumonia, likely superimposed on chronic fibro sis and emphysema. Reviewed, dictated and finalized at location A. Impression: 1: Patchy bilateral airspace disease, compatible with pneumonia, likely superim posed on chronic fibrosis and emphysema.
--- NOTE | ~2024-12-09 | XR_ITS ---
XR chest 1V portable 12/12/2024 05:37 Indication: Pneumonia Procedure: AP portable chest Comparison: 12/09/2024 and 05/06/2021 Findings: Heart size normal. Coarse interstitial infiltrates and scarring are present throughout both lungs without significant change. More focal areas of consolidation in the upper lobes are new compared with 05/06/2021 which may repre sent superimposed pneumonia. The lungs are hyperinflated which is consistent with, but not diagnostic of chronic obstructive pulmonary disease. No acute osseous abnormality. Impression: 1: No significant change compared with 12/09/2024 allowing for technique. Reviewed, dictated and finalized at location A. Impression: 1: No significant change compared with 12/09/2024 allowing for technique.
--- NOTE | 2024-12-09 11:12 | ECG_ITS ---
Test Date: 2024-12-09 11:21:00 Measurements Intervals [place] Rate: 95 P: 80 DC: 136 QRS: -26 QRSD: 96 T: 83 QT: 321 QTc: 405 Interpretive Statements SINUS RHYTHM CANNOT R/O SEPTAL INFARCT, AGE INDETERMINATE BORDERLINE ST-T WAVE ABNORMALITY- ANT/HIGH LAT LEADS BASELINE ARTIFACT- I, II, AVR, AVL, V4-V5 ABNORMAL ECG No previous ECG available for comparison Electronically Signed On 12-09-2024 11:22:46 CDT by Michael Mercer D.O.
--- NOTE | 2024-12-09 11:30 | ECG_ITS ---
Test Date: 2024-12-09 11:30:57 Measurements Intervals [place] Rate: 95 P: 80 MD: 142 QRS: -35 QRSD: 93 T: 78 QT: 308 QTc: 388 Interpretive Statements SINUS RHYTHM LEFT AXIS DEVIATION CANNOT R/O SEPTAL INFARCT, AGE INDETERMINATE BORDERLINE ST-T WAVE ABNORMALITY- LAT/HIGH LAT LEADS BASELINE ARTIFACT- AVR, AVL, AVF, V1-V6 ABNORMAL ECG Compared to ECG 12/09/2024 11:21:00 NO SIGNIFICANT CHANGE Electronically Signed On 12-09-2024 16:34:00 CDT by Michael Mercer D.O.
[2024-12-09 11:36] LABS: Hematocrit 38.4 % (37.0-47.0); Hemoglobin 11.9 g/dL (12.0-15.0); Immature Granulocyte Percent A 1.0 % (0-0.5); Lymphocytes Absolute Auto 0.32 K/mm3 (0.9-3.2); Mean Corpuscular HGB Conc 31.0 g/dl (32-36); Mean Corpuscular Hemoglobin 29.5 pg (26-34); Mean Corpuscular Volume 95.0 fl (80-100); Nucleated Red Blood Cells Absolute Auto 0.000 K/mm3 (0.0-0.012); Nucleated Red Blood Cells Perc 0.0 % (0.0-0.2); Platelet Count Result 186 k/mm3 (150-375); Red Blood Count 4.04 M/mm3 (4.2-5.4); White Blood Count 11.4 K/mm3 (4.5-10.0)
[2024-12-09 11:47] LABS: Alanine Aminotransferase 17 U/L (6-35); Albumin Level 3.5 g/dL (3.5-5.1); Alkaline Phosphatase 64 U/L (38-126); Anion Gap 3 mmol/L (4-12); Aspartate Amino Transferase 22 U/L (14-36); Bilirubin,Total 0.3 mg/dL (0.2-1.3); Blood Urea Nitrogen 17 mg/dL (7-17); Calcium 9.1 mg/dL (8.4-10.2); Carbon Dioxide 38 mmol/L (22-30); Chloride 90 mmol/L (98-107); Estimated CRCL calculation 46 ml/min; Estimated Glomerular Filt Rate > 60; Glucose 256 mg/dL (65-110); Potassium 4.0 mmol/L (3.4-5.0); Sodium 131 mmol/L (137-145); Total Protein 6.7 g/dL (6.3-8.2)
[2024-12-09 11:54] LABS: Carboxyhemoglobin 1.3 % THb (0-2.0); Fractional Inspired Oxygen 21 %; HCO3 ABG 35.8 mEq/l (22.0-26.0); Methemoglobin ABG 0.3 %THb (0-1.5); PCO2 ABG 44.3 mmHg (35.0-45.0); Reduced Hemoglobin 1.7 %THb (0-5.0)
[2024-12-09 11:57] LABS: Modified Allen's Test Pass; Site Drawn RIGHT RADIAL
[2024-12-09 11:58] LABS: Liters per Minute 1.0 LPM
--- OUTSIDE RECORDS SUMMARY | 2024-12-09 13:19 | XMS_ITS | Clinical Summary ---
Author Organization [facility] Address [address] [place] [address] Care Team Providers Care Typewriter Ribbon Winder Name Role Phone Jovanny Hoffman MD Primary Care Provider +1- [phone] Allergies Active Allergy Reactions Criticality Noted Date [...] Active Problems Problem Noted Date Diagnosed Date snf curr use of select alfonso estrogen receptor [...] Encounters Date Type Department Care Team Description 12/03/2024 External Device Data STL ABSTRACTION Provider, Abstract 11/13/2024 External Device Data STL ABSTRACTION Provider, Abstract 11/12/2024 External Device Data STL ABSTRACTION Provider, Abstract 10/22/2024 External Device Data STL ABSTRACTION Provider, Abstract 10/01/2024 External Device Data STL ABSTRACTION Provider, Abstract 09/24/2024 External Device Data STL ABSTRACTION Provider, Abstract 09/19/2024 External Device Data STL ABSTRACTION Provider, Abstract 09/18/2024 External Device Data STL ABSTRACTION Provider, Abstract 09/17/2024 External Device Data STL ABSTRACTION Provider, Abstract [...] Care Team (Late st Contact Info) Description 07/16/2025 10:15 AM CDT Office Visit [facility] Oncology and Hematology - [place] [address] [facility] [address] [place] [address] Mikey Monaco MD [address] [facility] [address] [place] [address] Health Maintenance Due Date Last Done Comments DTAP/TDAP/TD VACCINES (1 - Tdap) 09/27/1963 ZOSTER VACCINE (1 of 2) 1994 PNEUMOCOCCAL VACCINE 50+ YEA RS (2 of 2 - PCV) 04/09/2018 04/09/2017, 04/07/2017 RSV VACCINE (60+ or ) (1 - 1-dose 75+ series) 09/27/2019 OSTEOPOROSIS SCREENING 09/28/2021 09/28/2016 COVID-19 Vaccine (3 - season) 2023, 06/22/2020 INFLUENZA VACCINE (#1) 2024 01/14/2020, 2018 Procedures Procedure Name Priority Date/Time Associated Diagnosis Comments XR DEXA BONE DENSITY AXIAL 1 OR MORE SITES Routine 09/28/2016 Malignant neoplasm of upper-outer quadrant of left female breast (CMS/HCC) Routine general medical examination at a health care facility Post-menopausal from Last 3 Months or Most Recently Relevant to Health Maintenance Results * XR DEXA BONE DENSITY AXIAL 1 OR MORE SITES (09/28/2016) Anatomical Region Laterality Modality Other us Mikey Monaco MD DIAGNOSTIC IMAGING ORDERABLES E dited Result - Final from Last 3 Months or Most Recently Relevant to Health Maintenance Insurance [facility] [place] [address] [place] [address] [place] Care Teams Typewriter Ribbon Winder Relationship Specialty Start Date End Date Jovanny Hoffman MD PCP - General Family Practice 02/06/17
--- OUTSIDE RECORDS SUMMARY | 2024-12-09 13:19 | XMS_ITS | Encounter Summary ---
Author Organization [facility] Address [address] [place] [address] Care Team Providers Care Electrical Laboratory Technician Name Role Phone Jovanny Hoffman MD Primary Care Provider +1- [phone] Encounter Details Date Type Department Care Team (Late Contact Info) Description 08/19/2016 Chart Note [facility] Radiation Therapy [address] [place] [address] [place] [address] [place] [address] Social History Tobacco Use Types [...] Department Care Team (Late Contact Info) Description 07/16/2025 10:15 AM CDT Office Visit [facility] Oncology and Hematology - [place] [address] [facility] [address] [place] [address] Mikey Monaco MD [address] [facility] [address] [place] [address] documented as of this encounter Visit Diagnoses Not on filedocumented in this encounter Care Teams Electrical Laboratory Technician Relationship Specialty Start Date End Date Jovanny Hoffman MD PCP - General Family Practice 02/06/17 documented as of this encounter
--- OUTSIDE RECORDS SUMMARY | 2024-12-09 13:19 | XMS_ITS | Clinical Summary ---
Author Organization [facility] Address [address] [place] [address] Care Team Providers Care Sr. Consultant Name Role Phone Jovanny Hoffman MD Primary Care Provider [phone] Allergies Active Allergy Reactions Criticality Noted Date [...] tablet by mouth. Active Vitamins-Lipotro pics (COMPLEX [id number]) Tab CR Take 1 tablet by mouth daily. Active fluticasone-salm eterol 500-50 MCG/DOSE inhalerIndicatio ns:Chronic obstructive pulmonary disease, unspecified COPD type (CMS/HCC HHS/HCC) INHALE 1 DOSE BY MOUTH TWICE DAILY 180 each 3 1 Active tiotropium (SPIRIVA HANDIHALER) 18 MCG inhalation capsuleIndicatio ns:Chronic obstructive pulmonary disease, unspecified COPD type ([facility]) Inhale 1 puff by mouth once daily 90 capsule 3 1 Active albuterol sulfate HFA (PROAIR HFA) 108 (90 Base) MCG/ACT inhalerIndicatio ns:Chronic obstructive pulmonary disease, unspecified COPD type ([facility]) Inhale 2 puffs into the lungs every 6 (six) hours as needed for Wheezing. 6.7 g 6 1 Active AZITHROMYCIN 250 MG tabletIndication s:Chronic obstructive pulmonary disease, unspecified COPD type ([facility]) TAKE 1 TABLET BY MOUTH THREE TIMES A WEEK 30 tablet 3 1 Active RESTASIS 0.05 % ophthalmic emulsion 1 Active Active Problems Problem Noted Date Diagnosed Date Aromatase inhibitor use 10/11/2017 History of external beam radiation therapy 10/11 Lymphedema of breast 10/11/2017 Age-related osteoporosis wit hout current pathological fracture 11/09/2016 Vitamin D deficiency 11/09/2016 Chronic respiratory failure with hypoxia ([facility]) 10/07/2016 Malignant neoplasm of breast ([facility]) 0 10/07/2016 COPD exacerbation ([facility]) 10/07/2016 Acute on chronic respiratory failure with hypoxemia ([facility]) 09/27/2016 COPD (chronic obstructive pu lmonary disease) ([facility]) 09/27/2016 Essential hypertension 09/27/2016 Post-menopausal 09/21/2016 Malignant neoplasm of upper- outer quadrant of left female breast ([facility]) 08/17/2016 Immunizations Immunization Administration Dates Next Due Fluzone High Dose [...] Comments Blood Pressure 134/70 04/12/2021 9:48 AM INTEGRITY MANAGER Pulse 83 04/12/2021 9:48 AM INTEGRITY MANAGER Temperature 36.7 C (98 F) 04/12/2021 9:48 AM INTEGRITY MANAGER Respiratory Rate 18 04/12/2021 9:48 AM INTEGRITY MANAGER Oxygen Saturation 91% 04/12/2021 9:4 8 AM INTEGRITY MANAGER 2L pulse dose Inhaled Oxygen Concentration - - Weight 50.8 kg (111 lb 14.4 oz) 04/12/2021 9:48 AM INTEGRITY MANAGER Height 152.4 cm (5') 04/12/2021 9:48 AM INTEGRITY MANAGER Body Mass Index 21.85 04/12/2021 9:48 AM INTEGRITY MANAGER Plan of Treatment Health Maintenance Due Date Last Done Comments DTaP, Tdap and Td Vaccines ( 1 - Tdap) 09/27/1963 Zoster Vaccines (1 of 2) 1994 Annual Medicare Wellness Visit 2009 Dexa Scan (General) 2009 Pneumococcal Vaccine: 50+ Years (2 of 2 - PCV) 04/09/2018 04/09/2017 RSV Immunization or 60+ Years (1 - 1-dose 75+ series) 09/27/2019 COVID-19 Vaccine (3 - 2023-2 5 season) 2023 07/13/2020, 06/22/2020 Meningococcal B Vaccine Aged Out No l onger eligible based on patient's age to complete this topic Meningococcal Vaccine Aged Out No evelio wendy eligible based on patient's age to complete this topic RSV Immunizations Under 20 Months Aged Out No longer eligible b ased on patient's age to complete this topic Insurance [facility] MEDICAID Care Teams Sr. Consultant Relationship Specialty Start Date End Date Jovanny Hoffman MD [address] [place] [id number] PCP - General FAMILY PRACTICE 03/05/18
--- NOTE | 2024-12-09 13:25 | ED.GENADULT ---
HPI - General Adult General Chief complaint: Weakness Stated complaint: weakness Time Seen by Provider: 12/09/24 12:24 History of Present Illness HPI narrative: 79-year-old female with history of COPD and 2 L of oxygen requirement at baseline presents to the emergency department for evaluation for increased generalized weakness, increased exertional shortness of breath, and increased sputum production. Patient states over the last few days she has worsening symptoms. Patient was a previous smoker and quit approximately 20 years ago. Patient is not a current smoker. Patient does have a past medical history of breast cancer, COPD, hypertension, glaucoma, anxiety Related Data Home Medications ?Medication ?Instructions ?Recorded ?Confirmed ?Last Taken ?Type calcium 600 mg (as 1 cap PO DAILY 05/10/19 12/09/24 09/27/19 17:30 History carbonate)-vitamin D3 5 mcg (200 unit) capsule (Calcium 600 + D(3)) cyanocobalamin (vitamin B-12) 2,500 mcg PO DAILY 08/04/21 12/09/24 Unknown History 2,500 mcg chewable tablet vitamin E (dl, acetate) 450 mg 450 mg PO DAILY 11/02/22 12/09/24 Unknown History (1,000 unit) capsule cholecalciferol (vitamin D3) 50 50 mcg PO DAILY 03/07/23 12/09/24 Unknown History mcg (2,000 unit) tablet Allergies Allergy/AdvReac Type Severity Reaction Status Date / Time Sulfa (Sulfonamide Allergy Severe INTERNAL Verified 12/09/24 17:18 Antibiotics) BURNING Review of Systems Review of Systems: All systems reviewed & are unremarkable except as noted in HPI and below PMFSH Past Medical History Medical History Urinary, incontinence, stress female Anxiety Glaucoma Chronic respiratory failure with hypoxia and hypercapnia Chronic home O2 of 2.5 L COVID-19 virus infection Essential hypertension COPD (chronic obstructive pulmonary disease) With PFTs in 2003 demonstrating severe obstructive ventilatory defect with acute bronchodilator response Breast cancer Left breast 2016 treated with radiation therapy Surgical History Surgical History Previous section Status post cataract extraction of both eyes with insertion of intraocular lens History of partial mastectomy of left breast July 2016 Family History Family History Father , In his 80s Arthritis Hardening of the arteries of the heart Mother , In her 80s Hypertension Hardening of the arteries of the heart Sibling Breast cancer Social History Social History Social History: Primary care physician: Dr. Jovanny Akins Code status: Modified code no CPR per patient request. She states that if her heart were to stop she is rated go be with God. The patient is okay with a trial of intubation and ventilator support. She is uncertain if she would want tracheostomy. Smoking packs per day: 1 Smoking cigarettes per day: 20.0 Years smoked: 39 Smoking pack-years: 39.00 Smoking status: Former smoker Second hand tobacco smoke exposure: No Additional smoking assessment comments: PT STATES STOPPED SMOKING 1999 Alcohol intake: never Substance use: never Substance use type: does not use Lack of Transportation: No Lack of Food: Never True Current Housing: I Have Housing Concerned About Future Housing: No Difficulty Paying Gas/Electric Bills: No Difficulty Paying for Meds: No Currently Unemployed: No Education: High School Diploma/GED Difficulty w/ Childcare or Family Care: No Living arrangements: with family Additional living arrangements comments: She lives with her of 43 years and 1 of her adult sons. 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 Gender identity (if verbalized by the patient): Female Sexual Orientation (if Verbalized by the Patient): Straight or Heterosexual Spiritual care concerns: No Agree to blood products: Yes Exam Narrative: APPEARANCE: Cachectic and ill-appearing HEAD: normocephalic, atraumatic. EYES: PERRLA/EOMI, conjunctivae clear. NOSE: Normal no drainage EARS:TMS clear with good light reflex. THROAT: Pharynx clear, no exudate. NECK: Supple. No adenopathy, no masses. RESPIRATORY: Wheezing and decreased lung sounds by last CARDIOVASCULAR: Regular rate and rhythm without murmurs rubs or gallops. ABDOMINAL: Soft, nontender, nondistended, normal bowel sounds MUSCULOSKELETAL: Moves all extremities. Strength/ROM intact, No edema, No calf tenderness. NEURO: Alert. Cranial nerves II through XII intact. Good gait. Good coordination SKIN: Warm, dry. Normal Color Course Vital Signs Vital signs: Vital Signs Temperature 98.7 F 12/09/24 10:55 Pulse Rate 95 12/09/24 10:55 Respiratory Rate 34 H 12/09/24 10:55 Blood Pressure 133/70 12/09/24 10:55 Pulse Oximetry 96 12/09/24 10:55 Oxygen Delivery Nasal Cannula 12/09/24 10:55 Oxygen Flow Rate 2 12/09/24 10:55 Temperature 99.0 F 12/09/24 12:40 Pulse Rate 88 12/09/24 16:42 Respiratory Rate 24 H 12/09/24 17:54 Blood Pressure 130/68 12/09/24 16:42 Pulse Oximetry 97 12/09/24 17:54 Oxygen Delivery Nasal Cannula 12/09/24 17:54 Oxygen Flow Rate 2 12/09/24 17:54 Medical Decision Making MDM Narrative Medical decision making narrative: 79-year-old female presented emergency department for evaluation for increased shortness of breath. Patient is afebrile but does have a leukocytosis 11.4 hemoglobin 11.9. Patient's ABG does show a pH is 7.5-5 but a normal pCO2 of 44.3. Patient has no significant acute abnormalities on her CMP does have an elevated glucose of 256. Chest x-ray does show evidence of pneumonia. Patient states she feels too weak to be discharged home. Patient has blood cultures ordered and was started on Rocephin and azithromycin. Patient was also treated with a dose of Solu-Medrol. CTA was ordered to evaluate for pulmonary embolism as patient did have a ground level fall approximately 2 weeks ago did injure her left calf. She has no tenderness to palpation of the left calf Differential Diagnosis Differential Diagnosis: Pneumonia, COVID, RSV influenza, emphysema, COPD, pulmonary embolism Vital Signs Vital Signs: Vital Signs Temperature 98.7 F 12/09/24 10:55 Pulse Rate 95 12/09/24 10:55 Respiratory Rate 34 H 12/09/24 10:55 Blood Pressure 133/70 12/09/24 10:55 Pulse Oximetry 96 12/09/24 10:55 Oxygen Delivery Nasal Cannula 12/09/24 10:55 Oxygen Flow Rate 2 12/09/24 10:55 Temperature 99.0 F 12/09/24 12:40 Pulse Rate 88 12/09/24 16:42 Respiratory Rate 24 H 12/09/24 17:54 Blood Pressure 130/68 12/09/24 16:42 Pulse Oximetry 97 12/09/24 17:54 Oxygen Delivery Nasal Cannula 12/09/24 17:54 Oxygen Flow Rate 2 12/09/24 17:54 Lab Data Lab results reviewed: Yes I reviewed the patient's lab results. 12/09/24 11:27 12/09/24 11:27 Labs: Lab Results 12/09/24 12/09/24 Range/Units 11:27 11:35 WBC 11.4 H (4.5-10.0) K/mm3 RBC 4.04 L (4.2-5.4) M/mm3 Hgb 11.9 L (12.0-15.0) g/dL Hct 38.4 (37.0-47.0) % MCV 95.0 (80-100) fl MCH 29.5 (26-34) pg MCHC 31.0 L (32-36) g/dl RDW 13.3 (11.5-14.5) % Plt Count 186 (150-375) k/mm3 MPV 9.4 (7.4-10.4) fl Immature Gran % (Auto) 1.0 H (0-0.5) % Neut % (Auto) 87.8 H (45.5-73.1) % Lymph % (Auto) 2.8 L (18.3-44.2) % [place] % (Auto) 8.0 (2.6-8.5) % Eos % (Auto) 0.1 (0-4.4) % Baso % (Auto) 0.3 (0.2-1.2) % Lymph # (Auto) 0.32 L (0.9-3.2) K/mm3 [place] # (Auto) 0.9 H (0.1-0.6) K/mm3 Eos # (Auto) 0.0 (0-0.3) K/mm3 Baso # (Auto) 0.0 (0.0-0.1) K/mm3 Abs Immat Gran (auto) 0.11 H (0.00-0.031) K/mm3 Absolute Neuts (auto) 10.0 H (1.3-6.7) K/mm3 Absolute Nucleated RBC 0.000 (0.0-0.012) K/mm3 Nucleated RBC % 0.0 (0.0-0.2) % Methemoglobin 0.3 (0-1.5) %THb Sodium 131 L (137-145) mmol/L Potassium 4.0 (3.4-5.0) mmol/L Chloride 90 L (98-107) mmol/L Carbon Dioxide 38 H (22-30) mmol/L Anion Gap 3 L (4-12) mmol/L BUN 17 (7-17) mg/dL Creatinine 0.57 L (0.7-1.0) mg/dL Estim Creat Clear Calc 46 ml/min Estimated GFR > 60 (59 - ) Glucose 256 H (65-110) mg/dL Calcium 9.1 (8.4-10.2) mg/dL Total Bilirubin 0.3 (0.2-1.3) mg/dL AST 22 (14-36) U/L ALT 17 (6-35) U/L Alkaline Phosphatase 64 (38-126) U/L Total Protein 6.7 (6.3-8.2) g/dL Albumin 3.5 (3.5-5.1) g/dL ABG Data ABG results: 12/09/24 11:35 Puncture Site Right radial ABG pH 7.525 H* ABG pCO2 44.3 ABG pO2 Not Reportable ABG PO2/FiO2 Ratio Not Reportable ABG HCO3 35.8 H ABG O2 Saturation Not Reportable ABG O2 Content Not Reportable ABG Base Excess 11.7 A-a Gradient Not Reportable Oxyhemoglobin 96.7 Carboxyhemoglobin 1.3 Reduced Hemoglobin 1.7 Total Hemoglobin 12.7 O2 Delivery Device Nasal cannula O2 Liters/Min 1.0 FiO2 21 Imaging Data Radiologist's impression: Impressions Chest X-Ray 12/09/24 11:59 Impression: 1: Patchy bilateral airspace disease, compatible with pneumonia, likely superimposed on chronic fibrosis and emphysema. Chest CTA 12/09/24 14:51 IMPRESSION: 1. No pulmonary embolism. 2. Severe emphysema with extensive airspace disease in the right upper lobe including dense consolidation in the suprahilar region consistent with pneumonia. Possible additional small region of pneumonia versus atelectasis at the peripheral left upper lobe. 3. Very small right pleural effusion. ECG Data EKG #1: EKG Interpretation: normal rate, sinus rhythm, non-specific ST changes, normal QRS, widened QRS, normal QT and no acute changes Discharge Plan Discharge Clinical Impression: COPD (chronic obstructive pulmonary disease) Patient Disposition: Still a Patient Condition: Serious
[2024-12-09] MEDS: cefTRIAXone 1 GM in SODIUM CHLORIDE 0.9% IV 50 ML 100 ML IVPB (14:20)
[2024-12-09] MEDS: ALBUTEROL SULFATE NEB 2.5 MG/3 ML INH INHALATION ×2 (14:58→20:11)
[2024-12-09] MEDS: AZITHROMYCIN IV 500 MG in SODIUM CHLORIDE 0.9% IV 250 ML IVPB (15:07)
--- NOTE | 2024-12-09 15:54 | P.HP_ITS ---
H&P: HPI History of Present Illness Date/Time: 12/09/24 15:54 Chief Complaint: Weakness Narrative: 79-year-old female COPD, breast cancer, chronic respiratory failure on home O2 2 L complains of generalized weakness, productive cough, and increased shortness of breath with activity. Patient states that her breathing has gotten worse over the last couple days. And she is short of breath on her normal oxygen s ettings. So she presented to the hospital. Patient denies fevers chills nausea or vomiting. She states that she is not current smoker. Lab work in the ED shows leukocytosis at 14.1 hemoglobin of 11.9, ABG shows pH of 7.52, CO2 of 44, PO2 not reported, bicarb 35.8, sodium of 131, chloride of 90, carbon dioxide of 38, anion gap of 3, BUN of 17, creatinine of 0.57, glucose of 266, chest x-ray shows patchy bilateral airspace disease likely pneumonia. CTA is negative for embolism, severe emphysema with extensive airway disease likely pneumonia and a very small right pleural effusion. Patient was started on IV antibiotics and steroids. Review of Systems Review of Systems: 12 systems were reviewed and are negativ e except for as per HPI. [facility] Past Medical History Medical History Urinary, incontinence, stress female Anxiety Glaucoma Chronic respiratory failure with hypoxia and hypercapnia Chronic home O2 of 2.5 L COVID-19 virus infection Essential hypertension COPD (chronic obstructive pulmonary disease) With PFTs in 2003 demonstrating severe obstructive ventilatory defect with acute bronchodilator response Breast cancer Left breast 2016 treated with radiation therapy Surgical History Surgical History Previous section Status post cataract extraction of both eyes with insertion of intraocular lens History of partial mastectomy of left breast July 2016 Family History Family History Father , In his 80s Arthritis Hardening of the arteries of the heart Mother , In her 80s Hypertension Hardening of the arteries of the heart Sibling Breast cancer Social History Social History Social History: Primary care physician: Dr. Jovanny Akins Code status: Modified code no CPR per patient request. She states that if her heart were to stop she is rated go be with God. The patient is okay with a trial of intubation and ventilator support. She is uncertain if she would want tracheostomy. Smoking packs per day: 1 Smoking cigarettes per day: 20.0 Years smoked: 39 Smoking pack-years: 39.00 Smoking status: Former smoker Second hand tobacco smoke exposure: No Additional smoking assessment comments: PT STATES STOPPED SMOKING 2000 Alcohol intake: never Substance use: never Substance use type: does not use Lack of Transportation: No Lack of Food: Never True Current Housing: I Have Housing Concerned About Future Housing: No Difficulty Paying Gas/Electric Bills: No Difficulty Paying for Meds: No Currently Unemployed: No Education: High School Diploma/GED Difficulty w/ Childcare or Family Care: No Living arrangements: with family Additional living arrangements comments: She lives with her of 43 years and 1 of her adult sons. 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 Gender identity (if verbalized by the patient): Female Sexual Orientation (if Verbalized by the Patient): Straight or Heterosexual Spiritual care concerns: No Agree to blood products: Yes Meds Home Medications and Allergies Home Medications ?Medication ?Instructions ?Recorded ?Confirmed ?Type calcium 600 mg (as 1 cap PO DAILY 05/10/19 12/09/24 History carbonate)-vitamin D3 5 mcg (200 unit) capsule (Calcium 600 + D(3)) cyanocobalamin (vitamin B-12) 2,500 mcg PO DAILY 08/04/21 12/09/24 History 2,500 mcg chewable tablet albuterol sulfate 90 mcg/actuation 2 puff inhalation QID PRN 03/21/22 12/09/24 Rx aerosol inhaler Shortness Of Breath #8.5 grams vitamin E (dl, acetate) 450 mg 450 mg PO DAILY 11/02/22 12/09/24 History (1,000 unit) capsule cholecalciferol (vitamin D3) 50 50 mcg PO DAILY 03/07/23 12/09/24 History mcg (2,000 unit) tablet tiotropium bromide 18 mcg capsule 1 cap inhalation DAILY #30 08/27/24 12/09/24 Rx with inhalation device inhalations fluticasone 250 mcg-salmeterol 50 1 inh inhalation BID #60 ea 09/11/24 12/09/24 Rx mcg/dose blistr powdr for inhalation (José Miguel Inhub) amlodipine 10 mg tablet See Rx Instructions .Route 12/07/24 12/09/24 Rx .COMPLEX #90 tabs Allergies Allergy/AdvReac Type Severity Reaction Status Date / Time Sulfa (Sulfonamide Allergy Severe INTERNAL Verified 12/09/24 17:18 Antibiotics) BURNING Vital Signs Vital Signs - 24 hr 12/09/24 10:55 12/09/24 12:38 12/09/24 12:40 Temperature 98.7 F 99.0 F Pulse Rate 95 93 90 Respiratory Rate 34 H 20 Blood Pressure 133/70 140/66 Pulse Oximetry 96 94 Oxygen Delivery Nasal Cannula Oxygen Flow Rate 2 12/09/24 14:23 12/09/24 14:58 12/09/24 15:07 Temperature Pulse Rate 91 89 93 Respiratory Rate 15 21 H 22 H Blood Pressure 142/61 H Pulse Oximetry 98 Oxygen Delivery Oxygen Flow Rate Exam Narrative: General: Chronically ill no distress BMI of 19.1 HEENT: normocephalic, atraumatic. Mucous membranes moist. EOMI, PERRLA, bilateral sclera anicteric, no conjunctival injection. Neck supple without JVD, lymphadenopathy, or bruit. Respiratory: clear diminished to ascultation bilaterally. No rales/rhonic/wheezes. Cardiovascular: Regular rate and rhythm murmur ascultation. No murmurs, rubs, or clicks. PMI is nondisplaced, capillary refill less than 3 second. Abdomen: Soft, round, no pulsatile masses, nondistended and nontender. No reboun d, no guarding. No CVA tenderness, no hepatosplenomegaly. Bowel sounds present to all four quadrants. No high pitch or tinkling sounds, resonant to percussion. Extremities: No cyanosis, clubbing, or edema present. Pulses are palpable 2/2. Active ROM to all four extremities. Neuro: Alert and orientated x 4. PERRLA. Cranial nerves 2-12 intact without focal deficit. Skin: Warm, dry, and intact, without rash, erythema, or lesion. Psych: pleasant, cooperative, normal speech, normal affect, no hallucinations, no dysarthia H&P: Results Labs Labs: Short CBC 12/09/24 Range/Units 11:27 WBC 11.4 H (4.5-10.0) K/mm3 Hgb 11.9 L (12.0-15.0) g/dL Hct 38.4 (37.0-47.0) % Plt Count 186 (150-375) k/mm3 BMP 12/09/24 11:27 Sodium 131 L Potassium 4.0 Chloride 90 L Carbon Dioxide 38 H BUN 17 Creatinine 0.57 L Glucose 256 H Calcium 9.1 Liver Function 12/09/24 Range/Units 11:27 Total Bilirubin 0.3 (0.2-1.3) mg/dL AST 22 (14-36) U/L ALT 17 (6-35) U/L Alkaline Phosphatase 64 (38-126) U/L Albumin 3.5 (3.5-5.1) g/dL Assessment and Plan Assessment and plan (1) COPD (chronic obstructive pulmonary disease): Code(s): J44.9 - Chronic obstructive pulmonary disease, unspecified Status: Acute Assessment and Plan: COPD exacerbation Rocephin and Zithromax DuoNebs Solu-Medrol Blood cultures pending (2) Chronic respiratory failure with hypoxia and hypercapnia: Code(s): J96.11 - Chronic respiratory failure with hypoxia; J96.12 - Chronic respiratory failure with hypercapnia Status: Acute Assessment and Plan: Acute on chronic Currently on home O2 oxygen settings (3) Anxiety disorder, unspecified: Code(s): F41.9 - Anxiety disorder, unspecified Status: Acute Assessment and Plan: Not on medication (4) HTN (hypertension): Code(s): I10 - Essential (primary) hypertension Status: Acute Assessment and Plan: Continue Norvasc Quality VTE Prophylaxis VTE prophylaxis: mechanical ordered and pharmacologic ordered Hospitalist MIPS Advance Care Plan I have confirmed that the patient's Advanced Care Plan is present, code status is documented, or surrogate decision maker is listed in patient medical record.: Yes Medication Reconciliation I have utilized all available resources to obtain, update and review the patients current medications (includes all prescriptions, OTC, herbals, cannabis, and nutritional supplements).: Yes
--- NOTE | 2024-12-09 17:05 | ADMGEN ---
This patient, Ritu Liao, was admitted to 3 Med Surg Room 303-01. Patient/family oriented to hospital policies and general routines including ID bracelet, bed and alarms, visiting hours, pain management, procedures, bathroom and other care routines, personal items, smoking policy, room service/diet, and visiting hours. Information on how to activate the Rapid Response Team has been discussed. Patient/Family are encouraged to report perceived risks to care and to ask questions if they do not understand what they are told or what they should do.
[2024-12-09] MEDS: guaiFENesin 12 HR 600 MG TABCR 1200 MG PO (20:50)
[2024-12-10] VITALS (19 sets, daily range): BP systolic 118–129; BP diastolic 55–70; PULSE 54–81; RESP 14–20; TEMP 36–36.4; O2SAT 96–100
[2024-12-10] MEDS: ALBUTEROL SULFATE NEB 2.5 MG/3 ML INH INHALATION ×4 (02:08→19:49)
[2024-12-10 06:05] LABS: Hematocrit 41.8 % (37.0-47.0); Hemoglobin 12.6 g/dL (12.0-15.0); Immature Granulocyte Percent A 0.8 % (0-0.5); Lymphocytes Absolute Auto 0.25 K/mm3 (0.9-3.2); Mean Corpuscular HGB Conc 30.1 g/dl (32-36); Mean Corpuscular Hemoglobin 28.8 pg (26-34); Mean Corpuscular Volume 95.7 fl (80-100); Nucleated Red Blood Cells Absolute Auto 0.000 K/mm3 (0.0-0.012); Nucleated Red Blood Cells Perc 0.0 % (0.0-0.2); Platelet Count Result 206 k/mm3 (150-375); Red Blood Count 4.37 M/mm3 (4.2-5.4); White Blood Count 6.7 K/mm3 (4.5-10.0)
[2024-12-10 06:35] LABS: Blood Urea Nitrogen 14 mg/dL (7-17); Calcium 9.5 mg/dL (8.4-10.2); Carbon Dioxide 38 mmol/L (22-30); Estimated CRCL calculation 59 ml/min; Estimated Glomerular Filt Rate > 60; Glucose 197 mg/dL (65-110); Potassium 4.2 mmol/L (3.4-5.0); Sodium 136 mmol/L (137-145)
[2024-12-10 06:40] LABS: Anion Gap 5 mmol/L (4-12); Chloride 93 mmol/L (98-107)
[2024-12-10] MEDS: UMECLIDINIUM BROMIDE 62.5 MCG ELLIPTA 1 PUFF INHALATION (07:25)
[2024-12-10] MEDS: guaiFENesin 12 HR 600 MG TABCR 1200 MG PO ×2 (08:00→20:10)
[2024-12-10] MEDS: ENOXAPARIN 40 MG/0.4 ML SYRINGE SUB-Q (08:00)
--- NOTE | 2024-12-10 08:51 | P.PNIM_ITS ---
Progress Note: A&P Assessment and Plan (1) COPD (chronic obstructive pulmonary disease): Code(s): J44.9 - Chronic obstructive pulmonary disease, unspecified Status: Acute Assessment and Plan: COPD exacerbation Rocephin and Zithromax DuoNebs Solu-Medrol Blood cultures pending 12/10/24: * Continue Rocephin and azithromycin, DuoNebs and Solu-Medrol as well as Incruse Ellipta * Await results of blood cultures * Patient at baseline 2 L supplemental oxygen. (2) Chronic respiratory failure with hypoxia and hypercapnia: Code(s): J96.11 - Chronic respiratory failure with hypoxia; J96.12 - Chronic respiratory failure with hypercapnia Status: Acute Assessment and Plan: Acute on chronic Currently on home O2 oxygen settings 12/10/24: * See 1. Above. * No new increase in oxygen requirement. (3) Other abnormalities of gait and mobility: Code(s): R26.89 - Other abnormalities of gait and mobility Status: Acute Assessment and Plan: 12/10/24: * Patient with complaints of weakness today. States she has not been out of bed since she has been here and does not feel that she could walk independently as she normally does at baseline. * PT OT evaluation ordered for discharge recommendations. Suspect will discharge in next 1-2 days * Fall precautions (4) Anxiety disorder, unspecified: Code(s): F41.9 - Anxiety disorder, unspecified Status: Chronic Assessment and Plan: Not on medication 12/10/24: * Appears stable without any p.r.n. needs for control (5) HTN (hypertension): Code(s): I10 - Essential (primary) hypertension Status: Chronic Assessment and Plan: Continue Norvasc 12/10/24: * Currently well controlled. Continue home medications of amlodipine. * Monitor and trend labs and vital signs. (6) Dry eye: Code(s): H04.129 - Dry eye syndrome of unspecified lacrimal gland Status: Chronic Assessment and Plan: 12/10/2024: * Artificial tears ordered Time Spent With Patient Time with patient: 15 - 25 minutes Subjective Date/time seen: 12/10/24 08:51 Interval history: This patient is examined at the bedside today in interval assessment after being admitted to the hospital for dyspnea and presumed COPD exacerbation. Patient states that while she feels as though she is improving she does not feel like she is back to baseline yet, feels very weak and does not feels though she is strong enough to return home at this time. Consult PT and OT for evaluation and recommendations. Patient complains today of continues dry eye that she states she has at home a lot. She denies any new complaints at this time. Review of Systems Review of Systems: All systems reviewed & are unremarkable except as noted in HPI and below Exam Narrative: General: Chronically ill no distress BMI of 19.1 HEENT: normocephalic, atraumatic. MMM, PERRLA, no tearing Respiratory: Prolonged expiratory phase, diminished in bases bilaterally. No active wheezing. Cardiovascular: RRR, S1 and S2 present. No S3, S4, murmur, rub, gallop, heave or displacement PMI. Abdomen: Soft, round, no pulsatile masses, nondistended and nontender. No rebound, no guarding. Bowel sounds present x4 Extremities: No cyanosis, clubbing, or edema present. Pulses are palpable 2/2. Active ROM to all four extremities. Neuro: Alert and orientated x 4. PERRLA. No focal deficits. Skin: Warm, dry, and intact, without rash, erythema, or lesion. Psych: pleasant, cooperative, normal speech, normal affect, no hallucinations, no dysarthia Objective Data Vital Signs Vital Signs: Vital Signs - 24 hr 12/09/24 10:55 12/09/24 12:38 12/09/24 12:40 Temperature 98.7 F 99.0 F Pulse Rate 95 93 90 Respiratory Rate 34 H 20 Blood Pressure 133/70 140/66 Pulse Oximetry 96 94 Oxygen Delivery Nasal Cannula Oxygen Flow Rate 2 12/09/24 14:23 12/09/24 14:58 12/09/24 15:07 Temperature Pulse Rate 91 89 93 Respiratory Rate 15 21 H 22 H Blood Pressure 142/61 H Pulse Oximetry 98 Oxygen Delivery Oxygen Flow Rate 12/09/24 16:35 12/09/24 16:35 12/09/24 16:42 Temperature Pulse Rate 88 88 Respiratory Rate 20 20 Blood Pressure 130/68 130/68 Pulse Oximetry 97 97 97 Oxygen Delivery Nasal Cannula Oxygen Flow Rate 2 12/09/24 17:54 12/09/24 20:00 12/09/24 20:00 Temperature 96 F L Pulse Rate 71 Respiratory Rate 24 H 16 Blood Pressure 125/67 Pulse Oximetry 97 97 97 Oxygen Delivery Nasal Cannula Nasal Cannula Oxygen Flow Rate 2 2 12/09/24 20:00 12/09/24 20:12 12/09/24 20:20 Temperature Pulse Rate 69 73 75 Respiratory Rate 14 14 Blood Pressure Pulse Oximetry Oxygen Delivery Oxygen Flow Rate 12/09/24 23:15 12/10/24 00:00 12/10/24 00:21 Temperature Pulse Rate 63 67 Respiratory Rate 17 Blood Pressure Pulse Oximetry 94 97 Oxygen Delivery [place] Nasal Cannula Oxygen Flow Rate 12/10/24 02:08 12/10/24 04:00 12/10/24 04:35 Temperature 96.8 F L Pulse Rate 59 L 54 L 60 Respiratory Rate 14 20 Blood Pressure 129/70 Pulse Oximetry 100 Oxygen Delivery Oxygen Flow Rate 12/10/24 07:26 12/10/24 07:28 12/10/24 07:34 Temperature Pulse Rate 78 78 Respiratory Rate 16 16 Blood Pressure Pulse Oximetry 98 Oxygen Delivery Nasal Cannula Oxygen Flow Rate 2 12/10/24 08:00 12/10/24 08:00 Temperature Pulse Rate 74 Respiratory Rate Blood Pressure Pulse Oximetry 98 Oxygen Delivery Nasal Cannula Oxygen Flow Rate 2 Intake/Output Intake/Output: Intake & Output 12/07/24 12/08/24 12/09/24 12/10/24 23:59 23:59 23:59 23:59 Intake Total 290 250 Balance 290 250 Meds/Results Medications: Active Medications Generic Name Dose Route Start Last Admin Trade Name Freq PRN Reason Stop Dose Admin Acetaminophen 650 mg 12/09/24 16:10 Acetaminophen 325 Mg Tablet PO Q4H PRN Mild Pain (1-3) or Fever Albuterol 2.5 mg 12/09/24 20:00 12/10/24 07:23 Albuterol Sulfate Neb 2.5 Mg/3 Ml Inh INHALATION 2.5 mg Q6HRT DONNA Administration Amlodipine Besylate 10 mg 12/10/24 09:00 12/10/24 08:00 Amlodipine Besylate 10 Mg Tablet BY MOUTH 10 mg DAILY DONNA Administration Enoxaparin Sodium 40 mg 12/10/24 09:00 12/10/24 08:00 Enoxaparin 40 Mg/0.4 Ml Syringe SUB-Q 40 mg DAILY DONNA Administration Guaifenesin 1,200 mg 12/09/24 21:00 12/10/24 08:00 Guaifenesin 12 Hr 600 Mg Tabcr PO 1,200 mg Q12HR DONNA Administration Ceftriaxone Sodium 1 gm/ 50 mls @ 100 mls/hr 12/10/24 14:00 Sodium Chloride IVPB Q24H DONNA Azithromycin 500 mg/ Sodium 250 mls @ 250 mls/hr 12/10/24 15:00 Chloride IVPB 12/13/24 15:59 Q24H DONNA Methylprednisolone Sodium Succinate 60 mg 12/09/24 19:00 12/10/24 05:10 Methylprednisolone Sod Succ 125 Mg Vial IV PUSH 60 mg Q6HR DONNA Administration Umeclidinium [place] 1 puff 12/10/24 08:00 12/10/24 07:25 Umeclidinium [place] 62.5 Mcg Ellipta INHALATION 1 puff DAILYRT DONNA Administration Radiology Results: ITS Impressions Chest X-Ray 12/09/24 11:59 Impression: 1: Patchy bilateral airspace disease, compatible with pneumonia, likely superimposed on chronic fibrosis and emphysema. Chest CTA 12/09/24 14:51 IMPRESSION: 1. No pulmonary embolism. 2. Severe emphysema with extensive airspace disease in the right upper lobe including dense consolidation in the suprahilar region consistent with pneumonia. Possible additional small region of pneumonia versus atelectasis at the peripheral left upper lobe. 3. Very small right pleural effusion. Labs Labs: Laboratory Results - last 24 hr 12/09/24 12/09/24 12/10/24 11:27 11:35 05:31 WBC 11.4 H RBC 4.04 L Hgb 11.9 L Hct 38.4 MCV 95.0 MCH 29.5 MCHC 31.0 L RDW 13.3 Plt Count 186 MPV 9.4 Immature Gran % (Auto) 1.0 H Neut % (Auto) 87.8 H Lymph % (Auto) 2.8 L [place] % (Auto) 8.0 Eos % (Auto) 0.1 Baso % (Auto) 0.3 Lymph # (Auto) 0.32 L [place] # (Auto) 0.9 H Eos # (Auto) 0.0 Baso # (Auto) 0.0 Abs Immat Gran (auto) 0.11 H Absolute Neuts (auto) 10.0 H Absolute Nucleated RBC 0.000 Nucleated RBC % 0.0 Puncture Site Right radial ABG pH 7.525 H* ABG pCO2 44.3 ABG pO2 Not Reportable ABG PO2/FiO2 Ratio Not Reportable ABG HCO3 35.8 H ABG O2 Saturation Not Reportable ABG O2 Content Not Reportable ABG Base Excess 11.7 A-a Gradient Not Reportable Oxyhemoglobin 96.7 Carboxyhemoglobin 1.3 Methemoglobin 0.3 Reduced Hemoglobin 1.7 Total Hemoglobin 12.7 O2 Delivery Device Nasal cannula O2 Liters/Min 1.0 FiO2 21 Sodium 131 L 136 L Potassium 4.0 4.2 Chloride 90 L 93 L Carbon Dioxide 38 H 38 H Anion Gap 3 L 5 BUN 17 14 Creatinine 0.57 L 0.44 L Estim Creat Clear Calc 46 59 Estimated GFR > 60 > 60 Glucose 256 H 197 H Calcium 9.1 9.5 Total Bilirubin 0.3 AST 22 ALT 17 Alkaline Phosphatase 64 Total Protein 6.7 Albumin 3.5 12/10/24 05:32 WBC 6.7 RBC 4.37 Hgb 12.6 Hct 41.8 MCV 95.7 MCH 28.8 MCHC 30.1 L RDW 13.2 Plt Count 206 MPV 9.6 Immature Gran % (Auto) 0.8 H Neut % (Auto) 91.9 H Lymph % (Auto) 3.8 L [place] % (Auto) 3.3 Eos % (Auto) 0.0 Baso % (Auto) 0.2 Lymph # (Auto) 0.25 L [place] # (Auto) 0.2 Eos # (Auto) 0.0 Baso # (Auto) 0.0 Abs Immat Gran (auto) 0.05 H Absolute Neuts (auto) 6.1 Absolute Nucleated RBC 0.000 Nucleated RBC % 0.0 Puncture Site ABG pH ABG pCO2 ABG pO2 ABG PO2/FiO2 Ratio ABG HCO3 ABG O2 Saturation ABG O2 Content ABG Base Excess A-a Gradient Oxyhemoglobin Carboxyhemoglobin Methemoglobin Reduced Hemoglobin Total Hemoglobin O2 Delivery Device O2 Liters/Min FiO2 Sodium Potassium Chloride Carbon Dioxide Anion Gap BUN Creatinine Estim Creat Clear Calc Estimated GFR Glucose Calcium Total Bilirubin AST ALT Alkaline Phosphatase Total Protein Albumin Quality VTE Prophylaxis VTE prophylaxis: pharmacologic ordered
--- NOTE | 2024-12-10 11:21 | PC.NURSE ---
Coby Moreland Turner Machine Operator notified of glucose 297.
[2024-12-10] MEDS: cefTRIAXone 1 GM in SODIUM CHLORIDE 0.9% IV 50 ML 100 ML IVPB (14:00)
[2024-12-10] MEDS: AZITHROMYCIN IV 500 MG in SODIUM CHLORIDE 0.9% IV 250 ML IVPB (14:59)
[2024-12-10] MEDS: ARTIFICIAL TEARS OPHTH SOLN 15 ML BOTTLE 1 DROP EACH EYE (20:22)
[2024-12-11] VITALS (17 sets, daily range): BP systolic 117–132; BP diastolic 54–63; PULSE 62–85; RESP 10–20; TEMP 36.2–36.4; O2SAT 91–100
[2024-12-11 07:25] LABS: Hematocrit 37.0 % (37.0-47.0); Hemoglobin 11.6 g/dL (12.0-15.0); Immature Granulocyte Percent A 0.8 % (0-0.5); Lymphocytes Absolute Auto 0.44 K/mm3 (0.9-3.2); Mean Corpuscular HGB Conc 31.4 g/dl (32-36); Mean Corpuscular Hemoglobin 29.9 pg (26-34); Mean Corpuscular Volume 95.4 fl (80-100); Nucleated Red Blood Cells Absolute Auto 0.000 K/mm3 (0.0-0.012); Nucleated Red Blood Cells Perc 0.0 % (0.0-0.2); Platelet Count Result 249 k/mm3 (150-375); Red Blood Count 3.88 M/mm3 (4.2-5.4); White Blood Count 12.0 K/mm3 (4.5-10.0)
[2024-12-11 07:40] LABS: Alanine Aminotransferase 16 U/L (6-35); Albumin Level 3.3 g/dL (3.5-5.1); Alkaline Phosphatase 67 U/L (38-126); Aspartate Amino Transferase 22 U/L (14-36); Bilirubin,Total 0.2 mg/dL (0.2-1.3); Blood Urea Nitrogen 15 mg/dL (7-17); Calcium 9.2 mg/dL (8.4-10.2); Chloride 93 mmol/L (98-107); Estimated CRCL calculation 62 ml/min; Estimated Glomerular Filt Rate > 60; Glucose 139 mg/dL (65-110); Magnesium 2.2 mg/dL (1.6-2.3); Potassium 4.6 mmol/L (3.4-5.0); Sodium 136 mmol/L (137-145); Total Protein 6.6 g/dL (6.3-8.2)
[2024-12-11 07:47] LABS: Carbon Dioxide > 40 mmol/L (22-30)
[2024-12-11] MEDS: UMECLIDINIUM BROMIDE 62.5 MCG ELLIPTA 1 PUFF INHALATION (07:53)
[2024-12-11] MEDS: guaiFENesin 12 HR 600 MG TABCR 1200 MG PO ×2 (08:23→21:20)
--- NOTE | 2024-12-11 10:09 | P.CDI_ITS ---
CDI Query Clarification Request Could you please clarify if there are any additional conditions or findings that should be documented on the problem list for this admission? H&P states: Lab work in the ED shows leukocytosis at 14.1 hemoglobin of 11.9, ABG shows pH o f 7.52, CO2 of 44, PO2 not reported, bicarb 35.8, sodium of 131, chloride of 90, carbon dioxide of 38, anion gap of 3, BUN of 17, creatinine of 0.57, glucose of 266, chest x-ray shows patchy bilateral airspace disease likely pneumonia. CTA is negative for embolism, severe emphysema with extensive airway disease likely pneumonia and a very small right pleural effusion. Patient was started on IV antibiotics and steroids. Assessment and plan (1) COPD (chronic obstructive pulmonary disease): Code(s): J44.9 - Chronic obstructive pulmonary disease, unspecified Status: Acute Assessment and Plan: COPD exacerbation Rocephin and Zithromax DuoNebs Solu-Medrol Blood cultures pending (2) Chronic respiratory failure with hypoxia and hypercapnia: Code(s): J96.11 - Chronic respiratory failure with hypoxia; J96.12 - Chronic respiratory failure with hypercapnia Status: Acute Assessment and Plan: Acute on chronic Currently on home O2 oxygen settings (3) Anxiety disorder, unspecified: Code(s): F41.9 - Anxiety disorder, unspecified Status: Acute Assessment and Plan: Not on medication (4) HTN (hypertension): Code(s): I10 - Essential (primary) hypertension Status: Acute Assessment and Plan: Continue Norvasc CXR: Impression: 1: Patchy bilateral airspace disease, compatible with pneumonia, likely superimposed on chronic fibrosis and emphysema. CTA: IMPRESSION: 1. No pulmonary embolism. 2. Severe emphysema with extensive airspace disease in the right upper lobe including dense consolidation in the suprahilar region consistent with pneumonia. Possible additional small region of pneumonia versus atelectasis at the peripheral left upper lobe. 3. Very small right pleural effusion. IV Azithromycin IV ceftriaxone <Na Pope RN - Last Filed: 12/11/24 10:42> Could you please clarify if there are any additional conditions or findings that should be documented on the problem list for this admission? H&P states: Lab work in the ED shows leukocytosis at 14.1 hemoglobin of 11.9, ABG shows pH of 7.52, CO2 of 44, PO2 not reported, bicarb 35.8, sodium of 131, chloride of 90, carbon dioxide of 38, anion gap of 3, BUN of 17, creatinine of 0.57, glucose of 266, chest x-ray shows patchy bilateral airspace disease likely pneumonia. CTA is negative for embolism, severe emphysema with extensive airway disease likely pneumonia and a very small right pleural effusion. Patient was started on IV antibiotics and steroids. Assessment and plan (1) COPD (chronic obstructive pulmonary disease): Code(s): J44.9 - Chronic obstructive pulmonary disease, unspecified Status: Acute Assessment and Plan: COPD exacerbation Rocephin and Zithromax DuoNebs Solu-Medrol Blood cultures pending (2) Chronic respiratory failure with hypoxia and hypercapnia: Code(s): J96.11 - Chronic respiratory failure with hypoxia; J96.12 - Chronic respiratory failure with hypercapnia Status: Acute Assessment and Plan: Acute on chronic Currently on home O2 oxygen settings (3) Anxiety disorder, unspecified: Code(s): F41.9 - Anxiety disorder, unspecified Status: Acute Assessment and Plan: Not on medication (4) HTN (hypertension): Code(s): I10 - Essential (primary) hypertension Status: Acute Assessment and Plan: Continue Norvas CXR: Impression: 1: Patchy bilateral airspace disease, compatible with pneumonia, likely superimposed on chronic fibrosis and emphysema. CTA: IMPRESSION: 1. No pulmonary embolism. 2. Severe emphysema with extensive airspace disease in the right upper lobe including dense consolidation in the suprahilar region consistent with pneumonia. Possible additional small region of pneumonia versus atelectasis at the peripheral left upper lobe. 3. Very small right pleural effusion. IV Azithromycin IV ceftriaxone <Yusra Vega APRN - Last Filed: 12/11/24 16:30> Provider Comments Patient will be seen by Catalogue Clerk tomorrow and we can see then if further diagnoses are added. <Yusra Vega APRN - Last Filed: 12/11/24 16:30>
--- NOTE | 2024-12-11 11:09 | P.PNIM_ITS ---
Progress Note: A&P Assessment and Plan (1) COPD (chronic obstructive pulmonary disease): Code(s): J44.9 - Chronic obstructive pulmonary disease, unspecified Status: Acute Assessment and Plan: COPD exacerbation Rocephin and Zithromax DuoNebs Solu-Medrol Blood cultures pending 12/10/24: * Continue Rocephin and azithromycin, DuoNebs and Solu-Medrol as well as Incruse Ellipta * Await results of blood cultures * Patient at baseline 2 L supplemental oxygen. 12/11/24: * Continue Rocephin and azithromycin, DuoNebs and Solu-Medrol as well as Incruse Ellipta * Blood cultures no grow to date. * Patient at baseline 2 L supplemental oxygen. * Systems Test Technician referral, she is a patient of Dr. Díaz. * Decrease Methylprednisolone 60 mg ivp q12. (2) Chronic respiratory failure with hypoxia and hypercapnia: Code(s): J96.11 - Chronic respiratory failure with hypoxia; J96.12 - Chronic respiratory failure with hypercapnia Status: Acute Assessment and Plan: Acute on chronic Currently on home O2 oxygen settings 12/10/24: * See 1. Above. * No new increase in oxygen requirement. 12/11/24: * Unchanged (3) Other abnormalities of gait and mobility: Code(s): R26.89 - Other abnormalities of gait and mobility Status: Acute Assessment and Plan: 12/10/24: * Patient with complaints of weakness today. States she has not been out of bed since she has been here and does not feel that she could walk independently as she normally does at baseline. * PT OT evaluation ordered for discharge recommendations. Suspect will disch arge in next 1-2 days * Fall precautions 12/11/24: * PT/OT * Fall precautions. (4) Anxiety disorder, unspecified: Code(s): F41.9 - Anxiety disorder, unspecified Status: Chronic Assessment and Plan: Not on medication 12/10/24: * Appears stable without any p.r.n. needs for control (5) HTN (hypertension): Code(s): I10 - Essential (primary) hypertension Status: Chronic Assessment and Plan: Continue Norvasc 12/10/24: * Currently well controlled. Continue home medications of amlodipine. * Monitor and trend labs and vital signs. (6) Dry eye: Code(s): H04.129 - Dry eye syndrome of unspecified lacrimal gland Status: Chronic Assessment and Plan: 12/10/2024: * Artificial tears ordered Subjective Date/time seen: 12/11/24 11:09 Interval history: Patient sitting up in the bed. Patient reports feeling a little better today. Denies shortness of breath at rest. Coughing up clear to yellow sputum. Reports that she follows with Dr. Díaz. Denies chest pain, palpitations, headache, dizziness, nausea, or vomiting. Review of Systems Review of Systems: All systems reviewed & are unremarkable except as noted in HPI and below Exam Const: General: no acute distress Other: Chronically ill appearing. Resp: Auscultation: diminished lung sounds Other: prolonged expiratory phase. Cardio: Rate: regular rate Rhythm: regular rhythm Other: Telemetry- SR 82 GI: GI Palp: Yes Soft to palpation Auscultation: normal bowel sounds Neuro: Speech: normal speech Extrem: General: no pedal edema Psych: Mental Status: mental status grossly normal Affect: normal affect Objective Data Vital Signs Vital Signs: Vital Signs - 24 hr 12/10/24 12:00 12/10/24 13:32 12/10/24 13:39 Temperature Pulse Rate 73 72 70 Respiratory Rate 16 16 Blood Pressure Pulse Oximetry Oxygen Delivery Oxygen Flow Rate 12/10/24 13:55 12/10/24 16:00 12/10/24 19:49 Temperature 97.6 F Pulse Rate 78 77 81 Respiratory Rate 20 18 Blood Pressure 118/55 L Pulse Oximetry 98 Oxygen Delivery Oxygen Flow Rate 12/10/24 19:57 12/10/24 20:00 12/10/24 20:00 Temperature Pulse Rate 80 76 Respiratory Rate 18 Blood Pressure Pulse Oximetry 98 Oxygen Delivery Nasal Cannula Oxygen Flow Rate 2 12/10/24 20:02 12/10/24 21:28 12/10/24 23:20 Temperature 97.4 F L Pulse Rate 80 75 Respiratory Rate 18 16 Blood Pressure 129/61 Pulse Oximetry 96 98 Oxygen Delivery Nasal Cannula BiPAP Oxygen Flow Rate 2 12/11/24 00:20 12/11/24 01:30 12/11/24 04:00 Temperature Pulse Rate 74 62 Respiratory Rate Blood Pressure Pulse Oximetry Oxygen Delivery Nasal Cannula Oxygen Flow Rate 12/11/24 05:34 12/11/24 07:53 12/11/24 08:00 Temperature 97.6 F Pulse Rate 70 77 Respiratory Rate 14 18 Blood Pressure 131/54 L Pulse Oximetry 100 98 Oxygen Delivery Nasal Cannula Oxygen Flow Rate 2 12/11/24 08:00 Temperature Pulse Rate 74 Respiratory Rate Blood Pressure Pulse Oximetry Oxygen Delivery Oxygen Flow Rate Intake/Output Intake/Output: Intake & Output 12/08/24 12/09/24 12/10/24 12/11/24 23:59 23:59 23:59 23:59 Intake Total 290 1516 500 Output Total 500 Balance 290 1016 500 Meds/Results Medications: Active Medications Generic Name Dose Route Start Last Admin Trade Name Freq PRN Reason Stop Dose Admin Acetaminophen 650 mg 12/09/24 16:10 Acetaminophen 325 Mg Tablet PO Q4H PRN Mild Pain (1-3) or Fever Albuterol 2.5 mg 12/09/24 20:00 08/13/25 07:53 Albuterol Sulfate Neb 2.5 Mg/3 Ml Inh INHALATION Not Given Q6HRT [facility] Amlodipine Besylate 10 mg 12/10/24 09:00 12/11/24 08:23 Amlodipine Besylate 10 Mg Tablet BY MOUTH 10 mg DAILY DONNA Administration Artificial Tears 1 drop 12/10/24 08:48 12/10/24 20:22 Artificial Tears Ophth Soln 15 Ml Bottle EACH EYE 1 drop QID PRN Administration Dry Eye(s) Enoxaparin Sodium 40 mg 12/10/24 09:00 12/11/24 08:25 Enoxaparin 40 Mg/0.4 Ml Syringe SUB-Q Not Given DAILY [facility] Guaifenesin 1,200 mg 12/09/24 21:00 12/11/24 08:23 Guaifenesin 12 Hr 600 Mg Tabcr PO 1,200 mg Q12HR DONNA Administration Ceftriaxone Sodium 1 gm/ 50 mls @ 100 mls/hr 12/10/24 14:00 12/10/24 14:00 Sodium Chloride IVPB 100 mls/hr Q24H DONNA Administration Azithromycin 500 mg/ Sodium 250 mls @ 250 mls/hr 12/10/24 15:00 12/10/24 14:59 Chloride IVPB 12/13/24 15:59 250 mls/hr Q24H DONNA Administration Methylprednisolone Sodium Succinate 60 mg 12/09/24 19:00 12/11/24 06:08 Methylprednisolone Sod Succ 125 Mg Vial IV PUSH 60 mg Q6HR DONNA Administration Umeclidinium [place] 1 puff 12/10/24 08:00 12/11/24 07:53 Umeclidinium [place] 62.5 Mcg Ellipta INHALATION 1 puff DAILYRT DONNA Administration Radiology Results: ITS Impressions Chest X-Ray 12/09/24 11:59 Impression: 1: Patchy bilateral airspace disease, compatible with pneumonia, likely superimposed on chronic fibrosis and emphysema. Chest CTA 12/09/24 14:51 IMPRESSION: 1. No pulmonary embolism. 2. Severe emphysema with extensive airspace disease in the right upper lobe including dense consolidation in the suprahilar region consistent with pneumonia. Possible additional small region of pneumonia versus atelectasis at the peripheral left upper lobe. 3. Very small right pleural effusion. Labs Labs: Laboratory Results - last 24 hr 12/10/24 12/10/24 12/11/24 11:07 11:09 07:10 WBC 12.0 H RBC 3.88 L Hgb 11.6 L Hct 37.0 MCV 95.4 MCH 29.9 MCHC 31.4 L RDW 13.2 Plt Count 249 MPV 9.3 Immature Gran % (Auto) 0.8 H Neut % (Auto) 91.7 H Lymph % (Auto) 3.7 L [place] % (Auto) 3.6 Eos % (Auto) 0.0 Baso % (Auto) 0.2 Lymph # (Auto) 0.44 L [place] # (Auto) 0.4 Eos # (Auto) 0.0 Baso # (Auto) 0.0 Abs Immat Gran (auto) 0.09 H Absolute Neuts (auto) 11.0 H Absolute Nucleated RBC 0.000 Nucleated RBC % 0.0 Sodium 136 L Potassium 4.6 Chloride 93 L Carbon Dioxide > 40 H Anion Gap BUN 15 Creatinine 0.41 L Estim Creat Clear Calc 62 Estimated GFR > 60 Glucose 139 H POC Capillary Glucose 320 H 297 H Calcium 9.2 Magnesium 2.2 Total Bilirubin 0.2 AST 22 ALT 16 Alkaline Phosphatase 67 Total Protein 6.6 Albumin 3.3 L Quality VTE Prophylaxis VTE prophylaxis: mechanical ordered
[2024-12-11] MEDS: ENOXAPARIN 40 MG/0.4 ML SYRINGE SUB-Q (12:18)
[2024-12-11] MEDS: cefTRIAXone 1 GM in SODIUM CHLORIDE 0.9% IV 50 ML 100 ML IVPB (14:08)
[2024-12-11] MEDS: AZITHROMYCIN IV 500 MG in SODIUM CHLORIDE 0.9% IV 250 ML IVPB (14:47)
[2024-12-11] MEDS: ARTIFICIAL TEARS OPHTH SOLN 15 ML BOTTLE 1 DROP EACH EYE ×2 (14:49→21:30)
--- NOTE | 2024-12-11 14:58 | PM.CNPUL ---
Assessment and Plan Assessment and plan (1) Pneumonia: Code(s): J18.9 - Pneumonia, unspecified organism Status: Acute Assessment and Plan: patient presents with an acute respiratory illness starting 12/07/2024 with progressive worsening weakness, shortness of breath, dyspnea on exertion. CT scan shows new dense consolidations in the right upper lobe, right middle lobe and left upper lobe compared to 05/06/2021. Patient was started on Solu-Medrol, bronchodilators, ceftriaxone and azithromycin and feels improved. 12/11/2024: The patient tells me she is breathing better today, 50-60% back to her normal. Overall her body feels better. She started producing yellow phlegm today and this helps her breathe when she expectorates. She is on 1 L nasal cannula saturation 96%. Plan: Blood cultures are pending. I will send sputum culture, COVID, RSV, influenza RT PCR, urine for Legionella antigen, urine for pneumococcal antigen, extended respiratory pathogen panel, serum mycoplasma IgM. I will check CRP and procalcitonin on 12/11/2024. Patient appears to be clinically responding to ceftriaxone and azithromycin, both day 2 and I will continue. Currently the patient is on Solu-Medrol 60 q.12 hours. I hear no wheezing and I will change her to Solu-Cortef 50 q.6 hours for severe community-acquired pneumonia. I will order an echocardiogram for 12/12/2024. I will repeat a chest x-ray on 12/12. Will follow with you. (2) COPD (chronic obstructive pulmonary disease): Code(s): J44.9 - Chronic obstructive pulmonary disease, unspecified Status: Acute Assessment and Plan: GOLD grade 4 group B COPD COPD diagnosed in 1999 with chronic hypoxic and hypercarbic respiratory failure on noninvasive ventilation and on home oxygen 2.0 L 24-7. Tobacco use (40 PY quit 2010). 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 PFTs 07/16/2020 with an FEV1 of 0.41 L, 24% predicted, ratio 28%, air trapping, hyperinflation and a moderately decreased DLCO when adjusted for alveolar volume. CTA on 05/06/2021 with severe panlobular emphysema in all lung hector. Maintained on triple inhalers. In patient exacerbation 05/06/2021 through 05/11/2021, Outpatient exacerbation 06/15/2021. outpatient COPD Exacerbation 11/03/2023. 01/10/2022 with a white blood cell count of 6.7, eosinophils 0.6%=40/uL. 07/18/2022: White blood cell count 5.6, eosinophils 0.4% equal 22 per micro L. 06/26/2023: White blood cell count 5.6, eosinophils 0.2%=11/uL. Patient has been on noninvasive ventilation at night since 05/11/2021. Patient states at baseline she can walk 1/4 block, she can clean her house, she has no chronic cough, no chronic phlegm production, does not wheeze. ? she is maintained on Advair 500-50 at 1 puff b.i.d. and tiotropium bromide 18 mcg at 1 puff q.day. CAT score 21 on 06/15/2021.? 12/11/24: Patient has no wheezing at this time. She has a pneumonia and possible COPD exacerbation. currently she is on 1 L nasal cannula saturations 96%. Plan: Continue treatment for pneumonia as above. A change her steroids to Solu-Cortef 50 q.6 for community-acquired pneumonia dose. I will place her on DuoNebs q.6 hours, Mucomyst 200 q.6 hours, continue guaifenesin 1200 p.o. b.i.d. to help her expectorate. Goal saturation 90-94%. (3) Chronic respiratory failure with hypoxia and hypercapnia: Code(s): J96.11 - Chronic respiratory failure with hypoxia; J96.12 - Chronic respiratory failure with hypercapnia Status: Acute Assessment and Plan: Patient with chronic hypoxemic respiratory failure requiring 2 L at rest, 3 L with activity and 5 L bleed in with her noninvasive ventilator. Patient use nocturnal noninvasive ventilation for chronic hypercarbic respiratory failure with the AVAPS AE mode through [facility], [place]. Attempted to place her on hospital BiPAP machine last night but she could not get enough air and could not tolerate it. [facility] from 08/12/2024 through 10/15/2024: Patient is on AVAPS-AE, breath rate is 10, tidal volume 520, minimum EPAP 7, maximal EPAP 10, minimum pressure support 8, maximal pressure support 20. inspiratory time 0.6. Rise time 2.0.? % of days used 4 more hours is 98%.? Average usage on days used is 6 hour s25 minutes.? median tidal volume is 678 mL, median minute ventilation is 6.8, Fifth percentile EPAP 6.8. median EPAP is 9.2, median peak inspiratory pressures 17.8,? average unintentional leak is 1.0. ??I interpret this download as excellent compliance with adequate pressures and low leak.? Of note the patient says she has not been able to wear the machine the last 2 weeks because it has been too hot in her trailer. Plan: I placed the patient on the hospital noninvasive ventilator with the AVAPS mode and adjusting settings to match her home settings and comfort. This resulted in a rate of 10, tidal volume 520, EPAP 7, minimal inspiratory pressure 8, maximal inspiratory pressure 25, inspiratory time 0.8, rise of 1 and 36% FiO2. I have told the family to bring her home machine in so we can eventually use this in the hospital. History of Present Illness History of Present Illness Consult date: 12/11/24 Chief complaint: emphysema,copd,pneumonia Narrative: 12/11/2024: This is a new pulmonary consult for COPD exacerbation and noninvasive ventilation. Patient followed in the Pulmonary Clinic and last seen on 09/11/2024: Summary of that visit: Download 11/17/2023 through 02/14/2024 with poor compliance at 31%, adequate pressures and high leak.? I called the patient and she says she has been wearing the machine every night whereas the download records only 1 hour.? DME notified 04/15/2024:? Patient with green and yellow phlegm and SOB.? I treated her for COPD exacerbation prescribed Z-pack and prednisone x5 days. 06/18/2024: Overnight oximetry on noninvasive ventilator with 5 L bleed in with adequate saturations. Patient has had no hospitalizations or exacerbations since 04/15/2024. Overall the patient tells me she is doing pretty good today. She is clinically stable with dyspnea on exertion room to room, her M MRC grade is 3. She can do some cleaning but is no longer going to congregation. The patient is taking Wixela 500-50 at 1 puff q.day, Spiriva 18 mcg a day and rescue albuterol which she uses 1 time about every 3 months. The patient is using 2 L nasal cannula at rest with saturations 96-97. She is using 3 L with activity and does not measure her home oxygen. The patient is not smoking or exposed to secondhand smoke. Patient's CAT score today has improved from 14 to a value of 7. Patient states she is eating better and has gained 2 lb from 95 lb to 97 lb. The patient is wearing her home noninvasive ventilator every night with a fullface mask and says she sleeps good from 10-5 a.m.. She is wearing 5 L bleed in with this. She assures me she is wearing the every mask every night and I have told her her machine is not transmitting data properly but she says she is wearing her mask and machine every night. Download from?06/03/2024 through 08/12/2024 from [employer]. Patient is on AVAPS-AE, breath rate is 10, tidal volume 520, minimum EPAP 7, maximal EPAP 10, minimum pressure support 8, maximal pressure support 20. inspiratory time 0.6. Rise time 2.0.? % of days used is 1.4%. Days used 4 more hours is 1.4%.? Average usage on days used is 6.4 hours.? Average tidal volume is 461 mL, average minute ventilation is 8.6, average EPAP is 7.3, average peak inspiratory pressures 16.3,? average unintentional leak is 17.7. ??I interpret this download as poor compliance with adequate pressures and high leak.? Of note on 07/31/2024 the [facility] performed a home visit which stated the patient was using her machine with a rate of 12, tidal volume 470, 5 L O2 bleed in and the patient told them the machine helps her breathe at night. Patient states she uses the machine every night but it is not tracking. Plan: continue Wixela but change dose to 250-50 at 1 puff twice a day, continue Spiriva 18 mcg a day and rescue albuterol. Continue her noninvasive ventilator with the AVAPS mode every night With 5 L bleed in. Continue 2 L at rest, 3 L with activity Patient was in her usual state of health on 12/06. On 12/07/2024 she developed a cough, shortness of breath and weakness. Symptoms progressed and she presented to the emergency department on 12/09/2024. Blood pressure 133/70, respirations 34, heart rate 95, saturations on 2 L nasal cannula 96%. She had wheezing and decreased breath sounds. White blood cell count 11.4 with eosinophils 0.1% creatinine 0.57. ABG on 1 L nasal cannula 7.53/44 / oxygen was not measured. Patient had a CT angiogram of the chest Compared to 05/06/2021 that showed severe panlobular emphysema dense infiltrate with new consolidation right upper lobe, right middle lobe and left upper lobe. patient was given Solu-Medrol, bronchodilators, azithromycin and ceftriaxone. 12/11/2024: The patient tells me she is breathing better today, 50-60% back to her normal. Overall her body feels better. She started producing yellow phlegm today and this helps her breathe when she expectorates. She is on 1 L nasal cannula saturation 96%. They attempted to place her on hospital BiPAP machine last night but she could not get enough air and could not tolerate it. I placed the patient on the hospital noninvasive ventilator with the AVAPS mode And adjusting settings to match her home settings and comfort. This resulted in a rate of 10, tidal volume 520, EPAP 7, minimal inspiratory pressure 8, maximal inspiratory pressure 25, inspiratory time 0.8, rise of 1 and 36% FiO2. DATA: 06/18/2024: Overnight oximetry on noninvasive ventilator with 5 L bleed in. Recording duration 2 hours and 38 minutes. Basal saturation 96.6%. High saturation 99%. Low saturation 90%. Time with saturation less than or equal to 88% was 0 minutes. Oxygen desaturation index is 0. I will continue noninvasive ventilator with 5 L bleed in at night. 05/08/2023: Alpha 1 anti trypsin genotype MM, normal ??05/11/2021:? Home O2 assessment.? Rest room air saturations 85%, rest 1 L nasal cannula saturation 87%, rest 2 L nasal cannula saturation 94%, ambulation 2 L saturation 90%.? Patient requires 2 L with rest and with activity. ?05/06/21 EXAMINATION: CTA chest PE protocol ??INDICATION: SOB. ??Comparison is made to prior examination from 02/08/2017. ??FINDINGS:? Pulmonary arteries are well opacified and without intraluminal filling defects. ? No thoracic aortic dissection.? There is severe emphysema. Dependent subsegmental atelectasis.? Some endobronchial debris in the bronchus intermedius.? There is no mediastinal, hilar or axillary lymphadenopathy. ? There is no pneumothorax. ? Heart normal in size. ? There is mild coronary arterial calcification, arterial sclerosis.? Upper abdomen is unremarkable. ? There is thoracic spondylosis without osteoblastic or osteolytic lesions identified. ??IMPRESSION: ??1.? Dependent subsegmental atelectasis. ??2.? Some endobronchial debris. ??3.? Severe emphysema. ??4.? No pulmonary emboli. ?? ?07/16/2020: I have a report from PFTs at [facility]? [facility]. ??This is a pulmonary function test with pre and post-bronchodilator spirometry, plethysmography and diffusing capacity.? ?Findings: ?Spirometry: ? There is decreased maximal expiratory airflow at all lung volumes with the concave expiratory flow tracing.? The contour of the inspiratory flow tracing is normal.? The pre bronchodilator FVC is 1.47 L, 63% predicted.? The pre bronchodilator FEV1 is 0.41 L, 24% predicted.? The pre bronchodilator FEV1:? FVC ratio is 28%.? The post bronchodilator FVC is 1.86 L, representing a 27% increase.? The post bronchodilator FEV1 is 0.47 L, representing a 16% increase.? The post bronchodilator FEV1: FVC ratio is 25%.? ?Plethysmography:? Total lung capacity is 6.11 L, 154% predicted.? The functional residual capacity is 5.34 L, 216% predicted.? The residual volume is 4.64 L, 281% predicted.? ?Plethysmography:? The diffusing capacity unadjusted for hemoglobin and carboxyhemoglobin is 3.0, 21% predicted.? The diffusing capacity adjusted for alveolar volume is 1.79, 53% predicted. ?Impression: There is a very severe obstructive abnormality with significant improvement after inhaling a single dose of albuterol. The increase in residual volume is consistent with air trapping from an obstructive abnormality.? Hyperinflation is present as demonstrated by the increase in functional residual capacity and total lung capacity and is consistent with an obstructive abnormality. The diffusing capacity unadjusted for hemoglobin and carboxyhemoglobin is severely decreased and remains moderately decreased when adjusted for alveolar volume. ?There are no prior studies for comparison ? ??09/25/2003 report no raw data available ??TEST: PFT ??FVC, FEV1, GRB1% decreased. There is acute bronchodilator response. Lung volumes are increased. RAW is increased. DLCO is decreased. ??Impression: Severe obstructive ventilatory defect with acute bronchodilator response. Decreased DLCO. ?08/23/1999: Chest X ray report: ??CHEST ??Indication: Fever. ??Technique: PA and lateral views. ??The lungs are prominently hyperinflated, with flattening of the diaphragm and increased retrosternal air space, consistent with chronic obstructive pulmonary disease. ??There are some increased interstitial markings in the lungs, particularly in the right mid and lower lung field which may be chronic. One cannot exclude some interstitial pneumonitis. Correlation clinically and comparison with prior chest radiographs is recommended. No pulmonary consolidation is evident. There is no pleural effusion. No pulmonary vascular congestion or any apparent adenopathy or pneumothorax is noted. ??The cardiac and mediastinal silhouettes are unremarkable. There is mild aortic calcification. ??IMPRESSION: CHRONIC OBSTRUCTIVE PULMONARY DISEASE. 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 RECOMMEND COMPARISON WITH PRIOR ??CHEST RADIOGRAPHS AND CLINICAL CORRELATION TO ??DIFFERENTIATE ACUTE FROM CHRONIC. Review of Systems Constitutional: Constitutional: Reports no additional constitutional complaints Eyes: Eyes: Reports no additional eye complaints ENT: Reports system reviewed and no additional complaints, except as documented Cardiovascular: Cardiovascular: Reports no additional cardiovascular complaints Respiratory: Respiratory: Reports no additional respiratory complaints Gastrointestinal: Gastrointestinal: Reports no additional gastrointestinal complaints Musculoskeletal: Musculoskeletal: Reports no additional musculoskeletal complaints Neurologic: Reports system reviewed and no additional complaints, except as documented Psychiatric: Psychiatric: Reports no additional psychiatric complaints Endocrine: Endocrine: Reports no additional endocrine complaints Hematologic/Lymphatic: Hematologic/Lymphatic: Reports no additional hematologic/lymphatic complaints Allergic/Immunologic: Allergic/Immunologic: Reports no additional allergic/immunologic complaints [facility] Past Medical History Medical History (Updated 12/11/24 @ 16:50 by Ralph Queen MD) Dry eye Other abnormalities of gait and mobility Urinary, incontinence, stress female Anxiety Glaucoma Chronic respiratory failure with hypoxia and hypercapnia Chronic home O2 of 2.5 L COVID-19 virus infection Essential hypertension COPD (chronic obstructive pulmonary disease) With PFTs in 2003 demonstrating severe obstructive ventilatory defect with acute bronchodilator response Breast cancer Left breast 2017 treated with radiation therapy Surgical History Surgical History Previous section Status post cataract extraction of both eyes with insertion of intraocular lens History of partial mastectomy of left breast July 2016 Family History Family History Father , In his 80s Arthritis Hardening of the arteries of the heart Mother , In her 80s Hypertension Hardening of the arteries of the heart Sibling Breast cancer Social History Social History Social History: Primary care physician: Dr. Jovanny Akins Code status: Modified code no CPR per patient request. She states that if her heart were to stop she is rated go be with God. The patient is okay with a trial of intubation and ventilator support. She is uncertain if she would want tracheostomy. Smoking packs per day: 1 Smoking cigarettes per day: 20.0 Years smoked: 39 Smoking pack-years: 39.00 Smoking status: Former smoker Second hand tobacco smoke exposure: No Additional smoking assessment comments: PT STATES STOPPED SMOKING 1999 Alcohol intake: never Substance use: never Substance use type: does not use Lack of Transportation: No Lack of Food: Never True Current Housing: I Have Housing Concerned About Future Housing: No Difficulty Paying Gas/Electric Bills: No Difficulty Paying for Meds: No Currently Unemployed: No Education: High School Diploma/GED Difficulty w/ Childcare or Family Care: No Living arrangements: with family Additional living arrangements comments: She lives with her of 43 years and 1 of her adult sons. 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 Gender identity (if verbalized by the patient): Female Sexual Orientation (if Verbalized by the Patient): Straight or Heterosexual Spiritual care concerns: No Agree to blood products: Yes Meds Home Medications and Allergies Home Medications ?Medication ?Instructions ?Recorded ?Confirmed ?Type calcium 600 mg (as 1 cap PO DAILY 05/10/19 12/09/24 History carbonate)-vitamin D3 5 mcg (200 unit) capsule (Calcium 600 + D(3)) cyanocobalamin (vitamin B-12) 2,500 mcg PO DAILY 08/04/21 12/09/24 History 2,500 mcg chewable tablet albuterol sulfate 90 mcg/actuation 2 puff inhalation QID PRN 03/21/22 12/09/24 Rx aerosol inhaler Shortness Of Breath #8.5 grams vitamin E (dl, acetate) 450 mg 450 mg PO DAILY 11/02/22 12/09/24 History (1,000 unit) capsule cholecalciferol (vitamin D3) 50 50 mcg PO DAILY 03/07/23 12/09/24 History mcg (2,000 unit) tablet tiotropium bromide 18 mcg capsule 1 cap inhalation DAILY #30 08/27/24 12/09/24 Rx with inhalation device inhalations fluticasone 250 mcg-salmeterol 50 1 inh inhalation BID #60 ea 09/11/24 12/09/24 Rx mcg/dose blistr powdr for inhalation (Wixela Inhub) amlodipine 10 mg tablet See Rx Instructions .Route 12/07/24 12/09/24 Rx .COMPLEX #90 tabs Allergies Allergy/AdvReac Type Severity Reaction Status Date / Time Sulfa (Sulfonamide Allergy Severe INTERNAL Verified 12/09/24 17:18 Antibiotics) BURNING Vital Signs Vital Signs - 24 hr 12/10/24 16:00 12/10/24 19:49 12/10/24 19:57 Temperature Pulse Rate 77 81 80 Respiratory Rate 18 18 Blood Pressure Pulse Oximetry Pulse Oximetry [With Activity During Therapy Session] Oxygen Delivery Oxygen Flow Rate 12/10/24 20:00 12/10/24 20:00 12/10/24 20:02 Temperature Pulse Rate 76 80 Respiratory Rate 18 Blood Pressure Pulse Oximetry 98 96 Pulse Oximetry [With Activity During Therapy Session] Oxygen Delivery Nasal Cannula Nasal Cannula Oxygen Flow Rate 2 2 12/10/24 21:28 12/10/24 23:20 12/11/24 00:20 Temperature 36.3 C L Pulse Rate 75 74 Respiratory Rate 16 Blood Pressure 129/61 Pulse Oximetry 98 Pulse Oximetry [With Activity During Therapy Session] Oxygen Delivery BiPAP Oxygen Flow Rate 12/11/24 01:30 12/11/24 04:00 12/11/24 05:34 Temperature 36.4 C Pulse Rate 62 70 Respiratory Rate 14 Blood Pressure 131/54 L Pulse Oximetry 100 Pulse Oximetry [With Activity During Therapy Session] Oxygen Delivery Nasal Cannula Oxygen Flow Rate 12/11/24 07:53 12/11/24 08:00 12/11/24 08:00 Temperature Pulse Rate 77 74 Respiratory Rate 18 Blood Pressure Pulse Oximetry 98 Pulse Oximetry [With Activity During Therapy Session] Oxygen Delivery Nasal Cannula Oxygen Flow Rate 2 12/11/24 11:30 12/11/24 12:00 12/11/24 14:25 Temperature Pulse Rate 80 82 Respiratory Rate 18 Blood Pressure Pulse Oximetry 96 Pulse Oximetry [With Activity During Therapy Session] 91 Oxygen Delivery Nasal Cannula Nasal Cannula Oxygen Flow Rate 2 2 Exam Const: General: cooperative, comfortable and no acute distress Orientation/consciousness: oriented to person, oriented to place and oriented to time Other: Patient is extremely thin. HENMT: Head: normal to inspection Ears: hearing grossly normal bilaterally Eyes: General: appearance normal, both eyes and all related structures Neck: Neck: normal visual inspection Chest: Chest palpation & inspection: normal inspection of the chest Resp: Effort & Inspection: normal respiratory effort and able to speak in complete sentences Auscultation: no crackles, no rales, no rhonchi, no wheezes and diminished lung sounds Other: Throughout, no wheezes, Cardio: Jugular venous distension: no JVD GI: Inspection: normal to inspection GI Palp: No abdominal tenderness Skin: General skin exam: normal color Neuro: General: oriented to person, oriented to place and oriented to time Extrem: General: normal to inspection and no edema Psych: Appearance: grossly normal Results Laboratory Findings 12/11/24 07:10 12/11/24 07:10 ABG, PT/INR, D-dimer: ABG ABG pH 7.525 (7.350-7.450) H* 12/09/24 11:35 ABG pCO2 44.3 mmHg (35.0-45.0) 12/09/24 11:35 ABG pO2 Not Reportable 12/09/24 11:35 ABG O2 Saturation Not Reportable 12/09/24 11:35 Abnormal lab findings: Abnormal Labs 12/09/24 12/09/24 12/10/24 11:27 11:35 05:31 WBC 11.4 H RBC 4.04 L Hgb 11.9 L MCHC 31.0 L Immature Gran % (Auto) 1.0 H Neut % (Auto) 87.8 H Lymph % (Auto) 2.8 L Lymph # (Auto) 0.32 L Republic # (Auto) 0.9 H Abs Immat Gran (auto) 0.11 H Absolute Neuts (auto) 10.0 H ABG pH 7.525 H* ABG HCO3 35.8 H Sodium 131 L 136 L Chloride 90 L 93 L Carbon Dioxide 38 H 38 H Anion Gap 3 L Creatinine 0.57 L 0.44 L Glucose 256 H 197 H POC Capillary Glucose Albumin 12/10/24 12/10/24 12/10/24 05:32 11:07 11:09 WBC RBC Hgb MCHC 30.1 L Immature Gran % (Auto) 0.8 H Neut % (Auto) 91.9 H Lymph % (Auto) 3.8 L Lymph # (Auto) 0.25 L Republic # (Auto) Abs Immat Gran (auto) 0.05 H Absolute Neuts (auto) ABG pH ABG HCO3 Sodium Chloride Carbon Dioxide Anion Gap Creatinine Glucose POC Capillary Glucose 320 H 297 H Albumin 12/11/24 07:10 WBC 12.0 H RBC 3.88 L Hgb 11.6 L MCHC 31.4 L Immature Gran % (Auto) 0.8 H Neut % (Auto) 91.7 H Lymph % (Auto) 3.7 L Lymph # (Auto) 0.44 L Republic # (Auto) Abs Immat Gran (auto) 0.09 H Absolute Neuts (auto) 11.0 H ABG pH ABG HCO3 Sodium 136 L Chloride 93 L Carbon Dioxide > 40 H Anion Gap Creatinine 0.41 L Glucose 139 H POC Capillary Glucose Albumin 3.3 L Diagnostic Findings Additional studies: ITS Impressions Chest X-Ray 12/09/24 11:59 Impression: 1: Patchy bilateral airspace disease, compatible with pneumonia, likely superimposed on chronic fibrosis and emphysema. Chest CTA 12/09/24 14:51 IMPRESSION: 1. No pulmonary embolism. 2. Severe emphysema with extensive airspace disease in the right upper lobe including dense consolidation in the suprahilar region consistent with pneumonia. Possible additional small region of pneumonia versus atelectasis at the peripheral left upper lobe. 3. Very small right pleural effusion.
[2024-12-11] MEDS: ALBUTEROL SULFATE NEB 2.5 MG/3 ML INH INHALATION (15:52)
[2024-12-11] MEDS: HYDROCORTISONE SODIUM SUCCINATE 100 MG/2 ML VIAL 50 MG IV PUSH (17:58)
[2024-12-11 18:03] LABS: Influenza A QL RT-PCR Negative (Negative); Influenza B QL RT-PCR Negative (Negative); RSV RNA, RT-PCR Negative (Negative); SARS-CoV-2 RNA PCR Negative (Negative)
[2024-12-11 19:25] LABS: MRSA (PCR) DETECTED (NOT DETECTE)
[2024-12-11] MEDS: ACETYLCYSTEINE 20% INHAL SOLN 800 MG/4 ML VIAL 200 MG INHALATION (19:54)
[2024-12-11] MEDS: IPRATROPIUM 0.5 MG/ALBUTEROL SULFATE 2.5 MG AMPUL.NEB 3 ML INHALATION (19:55)
[2024-12-12] VITALS (21 sets, daily range): BP systolic 116–168; BP diastolic 52–76; PULSE 63–86; RESP 13–18; TEMP 36.2–36.6; O2SAT 92–100
[2024-12-12] MEDS: VANCOMYCIN HCL 1,000 MG in SODIUM CHLORIDE 0.9% IV 250 ML 250 MG IVPB (00:45)
[2024-12-12] MEDS: HYDROCORTISONE SODIUM SUCCINATE 100 MG/2 ML VIAL 50 MG IV PUSH ×2 (00:46→06:18)
[2024-12-12] MEDS: IPRATROPIUM 0.5 MG/ALBUTEROL SULFATE 2.5 MG AMPUL.NEB 3 ML INHALATION ×4 (02:53→21:20)
[2024-12-12] MEDS: ACETYLCYSTEINE 20% INHAL SOLN 800 MG/4 ML VIAL 200 MG INHALATION ×4 (02:54→21:21)
[2024-12-12 05:29] LABS: Hematocrit 35.5 % (37.0-47.0); Hemoglobin 11.0 g/dL (12.0-15.0); Immature Granulocyte Percent A 0.5 % (0-0.5); Lymphocytes Absolute Auto 0.37 K/mm3 (0.9-3.2); Mean Corpuscular HGB Conc 31.0 g/dl (32-36); Mean Corpuscular Hemoglobin 29.7 pg (26-34); Mean Corpuscular Volume 95.9 fl (80-100); Nucleated Red Blood Cells Absolute Auto 0.000 K/mm3 (0.0-0.012); Nucleated Red Blood Cells Perc 0.0 % (0.0-0.2); Platelet Count Result 256 k/mm3 (150-375); Red Blood Count 3.70 M/mm3 (4.2-5.4); White Blood Count 8.2 K/mm3 (4.5-10.0)
[2024-12-12 05:39] LABS: Alanine Aminotransferase 13 U/L (6-35); Albumin Level 2.8 g/dL (3.5-5.1); Alkaline Phosphatase 68 U/L (38-126); Aspartate Amino Transferase 28 U/L (14-36); Bilirubin,Total 0.1 mg/dL (0.2-1.3); Blood Urea Nitrogen 16 mg/dL (7-17); Calcium 8.9 mg/dL (8.4-10.2); Chloride 96 mmol/L (98-107); Estimated CRCL calculation 55 ml/min; Estimated Glomerular Filt Rate > 60; Glucose 139 mg/dL (65-110); Magnesium 2.2 mg/dL (1.6-2.3); Potassium 4.4 mmol/L (3.4-5.0); Sodium 135 mmol/L (137-145); Total Protein 5.7 g/dL (6.3-8.2)
[2024-12-12 05:40] LABS: Carbon Dioxide > 40 mmol/L (22-30)
[2024-12-12 05:43] LABS: NT Pro B Type Natriuretic Pept 770 pg/mL (19.9-100)
[2024-12-12 05:50] LABS: Procalcitonin 0.2 ng/mL
--- NOTE | 2024-12-12 08:00 | ECHO_ITS ---
Patient Info Name: Ritu Liao Age: 79 years : 1945 Gender: Female Ht: 60 in Wt: 97 lbs BSA: 1.36 m2 HR: 78 bpm BP: 116 / 52 mmHg Technical Quality: Good Exam Date: 12/12/2024 12:07 PM Patient Status: I Admit Date: 12/10/2024 Exam Type: CA echo doppler color flow Complete two-dimensional, color flow and Doppler transthoracic echocardiogram is performed. Staff Referring Physician: Ralph Queen Stoker Erector: Rea Mathur Attending Provider: Fabien Singh Summary 1. Complete two-dimensional, color flow and Doppler transthoracic echocardiogram is performed. 2. Left ventricular chamber dimension is normal. 3. Left ventricular systolic function is normal, estimated at 60-65. 4. The left ventricular diastolic function is grade I diastolic dysfunction. 5. E/e' 9 is minimally elevated. 6. There is moderate aortic valve sclerosis. 7. There is trace mitral valve regurgitation. Left Ventricle E/e' 9 is minimally elevated. Left ventricular chamber dimension is normal. Left ventricular systolic function is normal, estimated at 60-65. The left ventricular diastolic function is grade I diastolic dysfunction. Right Ventricle Right ventricular chamber dimension is normal. Right ventricular systolic function is normal and with TAPSE 1.7 cm. Left Atria Left atrial chamber dimension is normal. Right Atria Right atrial chamber dimension is normal. Aortic Valve The aortic valve is trileaflet. There is moderate aortic valve sclerosis. There is no aortic valve stenosis. There is no aortic valve regurgitation. Pulmonic Valve There is no pulmonic regurgitation. Mitral Valve There is no mitral valve stenosis. There is trace mitral valve regurgitation. Tricuspid Valve There is no tricuspid valve regurgitation. Pericardium/Pleural There is no pericardial effusion. Inferior Vena Cava Normal inferior vena cava with >50% collapse upon inspiration consistent with normal right atrial pressure, 5 mmHg. Aorta The aortic root size at the sinus of Valsalva is normal. Left Ventricular Outflow Tract Name Value Normal LVOT 2D LVOT Diameter 2.0 cm LVOT Doppler LVOT Peak Velocity 113 cm/s LVOT Peak Gradient 5 mmHg LVOT Mean Gradient 2 mmHg LVOT VTI 21 cm LVOT Stroke Volume 66 ml LVOT CO 5.2 l/min LVOT CI 3.8 l/min/m2 Pulmonic Valve Name Value Normal RVOT Doppler RVOT Peak Velocity 95 cm/s RVOT Peak Gradient 4 mmHg PV Doppler PV Peak Velocity 118 cm/s PV Peak Gradient 6 mmHg Mitral Valve Name Value Normal MV Diastolic Function MV E Peak Velocity 67 cm/s MV A Peak Velocity 96 cm/s MV E/A 0.7 MV Decel Time (PW) 188 ms MV Annular TDI MV E/e' (Septal) 7.7 MV E/e' (Lateral) 11.5 MV E/e' (Average) 9.6 Tricuspid Valve Name Value Normal Estimated PAP/RSVP RA Pressure 5 mmHg <=5 Aortic Valve Name Value Normal AV Doppler AV Peak Velocity 155 cm/s AV Peak Gradient 10 mmHg AV Area (Cont Eq Steve) 2.3 cm2 AV DI (Steve) 0.73 AV Regurgitation 2D LVOT Area 3.1 cm2 Ventricles Name Value Normal LV Dimensions 2D/MM IVS Diastolic Thickness (2D) 1.0 cm 0.6-1.0 LVID Diastole (2D) 3.8 cm 3.8-5.2 LVIW Diastolic Thickness (2D) 0.9 cm 0.6-0.9 LVID Systole (2D) 2.5 cm 2.2-3.5 LVOT Diameter 2.0 cm LV Mass (2D Cubed) 106.14 g 67.00-162.00 LV Mass Index (2D Cubed) 78 g/m2 43-95 Relative Wall Thickness (2D) 0.45 <=0.42 LV Fractional Shortening/Ejection Fraction 2D/MM LV Fractional Shortening (2D) 35 % 27-45 LV EF (2D Teichholz) 64 % LV Diastolic Volume (4C MOD) 70 ml LV EF (4C MOD) 52 % LV Diastolic Volume (2C MOD) 101 ml LV EF (2C MOD) 56 % LV Diastolic Volume (BP MOD) 84 ml 46-106 LV Diastolic Volume Index (BP MOD) 61 ml/m2 29-61 LV Systolic Volume (BP MOD) 38 ml 14-42 LV Systolic Volume Index (BP MOD) 28 ml/m2 8-24 LV EF (BP MOD) 54 % 54-74 LV Diastolic Length (4C) 7.1 cm LV Systolic Length (4C) 5.6 cm LV Stroke Volume (4C MOD) 36 ml Atria Name Value Normal LA Dimensions LA Volume (4C A-L) 28 ml LA Volume (BP A-L) 26 ml RA Dimensions RA Systolic Major [place] Length (4C) 4.1 cm 2.2-2.8 RA Area (4C) 12.3 cm2 <=18.0 Report Signatures
[2024-12-12 08:03] LABS: CRP 4.5 mg/dL (<1.0)
[2024-12-12] MEDS: ENOXAPARIN 40 MG/0.4 ML SYRINGE SUB-Q (08:49)
[2024-12-12] MEDS: guaiFENesin 12 HR 600 MG TABCR 1200 MG PO ×2 (08:49→21:22)
[2024-12-12] MEDS: MUPIROCIN 2% OINT 22 GM TUBE 1 APPLIC EACH NARE ×2 (08:50→21:23)
--- NOTE | 2024-12-12 09:04 | PM.PNPUL ---
Progress Note: A&P Assessment and Plan (1) Pneumonia: Code(s): J18.9 - Pneumonia, unspecified organism Status: Acute Assessment and Plan: Patient presents with an acute respiratory illness starting 12/07/2024 with progressive worsening weakness, shortness of breath, dyspnea on exertion. CT scan shows new dense consolidations in the right upper lobe, right middle lobe and left upper lobe compared to 05/06/2021. Patient was started on Solu-Medrol, bronchodilators, ceftriaxone and azithromycin and feels improved. PSI score 110 consistent with severe community-acquired pneumonia. 12/11/2024: The patient tells me she is breathing better today, 50-60% back to her normal. Overall her body feels better. She started producing yellow phlegm today and this helps her breathe when she expectorates. She is on 1 L nasal cannula saturation 96%. Plan: Blood cultures are pending. I will send sputum culture, COVID, RSV, influenza RT PCR, urine for Legionella antigen, urine for pneumococcal antigen, extended respiratory pathogen panel, serum mycoplasma IgM. I will check CRP and procalcitonin on 12/11/2024. Patient appears to be clinically responding to ceftriaxone and azithromycin, both day 2 and I will continue. Currently the patient is on Solu-Medrol 60 q.12 hours. I hear no wheezing and I will change her to Solu-Cortef 50 q.6 hours for severe community-acquired pneumonia. I will order an echocardiogram for 12/12/2024. I will repeat a chest x-ray on 12/12. 12/12/24: Overall the patient tells me she is better. She feels she has 60-70% back to her normal. She has no rest shortness of breath. She has dyspnea on exertion with when using walker and walking to the bathroom. She denies cough, phlegm or hemoptysis. She is afebrile. White blood cell count 8.2, creatinine 0.42, BNP 770, procalcitonin 0.2, CRP 4.5. Chest x-ray today demonstrates no change in her diffuse interstitial alveolar infiltrates right greater than left. MRSA swab is positive and patient started on vancomycin. Plan: Patient with a history of Pseudomonas that was pansensitive on 09/29/2019. MRSA is positive. Will change patient's ceftriaxone and azithromycin to Levaquin and continue vancomycin. Patient has been on systemic steroids since 12/09 (day 4) she remains hemodynamically stable, oxygenation is stable, Chest x-ray stable, will decrease Solu-Cortef to 25 q.6 today. Blood cultures negative. Sputum culture, echocardiogram, respiratory pathogen panel, urine Legionella, urine pneumococcal antigen, serum mycoplasma IgM pending. Discussed with Renay Moreland, will follow with you. (2) COPD (chronic obstructive pulmonary disease): Code(s): J44.9 - Chronic obstructive pulmonary disease, unspecified Status: Acute Assessment and Plan: GOLD grade 4 group B COPD COPD diagnosed in 1999 with chronic hypoxic and hypercarbic respiratory failure on noninvasive ventilation and on home oxygen 2.0 L 24-7. Tobacco use (40 PY quit 2010). 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 PFTs 07/16/2020 with an FEV1 of 0.41 L, 24% predicted, ratio 28%, air trapping, hyperinflation and a moderately decreased DLCO when adjusted for alveolar volume. CTA on 05/06/2021 with severe panlobular emphysema in all lung benavidez. Maintained on triple inhalers. In patient exacerbation 05/06/2021 through 05/11/2021, Outpatient exacerbation 06/15/2021. outpatient COPD Exacerbation 11/03/2023. 01/10/2022 with a white blood cell count of 6.7, eosinophils 0.6%=40/uL. 07/18/2022: White blood cell count 5.6, eosinophils 0.4% equal 22 per micro L. 06/26/2023: White blood cell count 5.6, eosinophils 0.2%=11/uL. Patient has been on noninvasive ventilation at night since 05/11/2021. Patient states at baseline she can walk 1/4 block, she can clean her house, she has no chronic cough, no chronic phlegm production, does not wheeze. ? she is maintained on Advair 500-50 at 1 puff b.i.d. and tiotropium bromide 18 mcg at 1 puff q.day. CAT score 21 on 06/15/2021.? 12/11/24: Patient has no wheezing at this time. She has a pneumonia and possible COPD exacerbation. currently she is on 1 L nasal cannula saturations 96%. Plan: Continue treatment for pneumonia as above. A change her steroids to Solu-Cortef 50 q.6 for community-acquired pneumonia dose. I will place her on DuoNebs q.6 hours, Mucomyst 200 q.6 hours, continue guaifenesin 1200 p.o. b.i.d. to help her expectorate. Goal saturation 90-94%. 12/12/24: No wheezing at this time. she has no cough and no phlegm production today. currently tolerating 1 L nasal cannula. Plan: Solu-Cortef 25 q.6, DuoNebs q.6, Mucomyst q.6 and guaifenesin 1200 p.o. b.i.d. (3) Chronic respiratory failure with hypoxia and hypercapnia: Code(s): J96.11 - Chronic respiratory failure with hypoxia; J96.12 - Chronic respiratory failure with hypercapnia Status: Acute Assessment and Plan: Patient with chronic hypoxemic respiratory failure requiring 2 L at rest, 3 L with activity and 5 L bleed in with her noninvasive ventilator. Patient use nocturnal noninvasive ventilation for chronic hypercarbic respiratory failure with the [facility]. Attempted to place her on hospital BiPAP machine last night but she could not get enough air and could not tolerate it. Download from [employer] from 08/12/2024 through 10/15/2024: Patient is on AVAPS-AE, breath rate is 10, tidal volume 520, minimum EPAP 7, maximal EPAP 10, minimum pressure support 8, maximal pressure support 20. inspiratory time 0.6. Rise time 2.0.? % of days used 4 more hours is 98%.? Average usage on days used is 6 hour s25 minutes.? median tidal volume is 678 mL, median minute ventilation is 6.8, Fifth percentile EPAP 6.8. median EPAP is 9.2, median peak inspiratory pressures 17.8,? average unintentional leak is 1.0. ??I interpret this download as excellent compliance with adequate pressures and low leak.? Of note the patient says she has not been able to wear the machine the last 2 weeks because it has been too hot in her trailer. Plan: I placed the patient on the hospital noninvasive ventilator with the AVAPS mode and adjusting settings to match her home settings and comfort. This resulted in a rate of 10, tidal volume 520, EPAP 7, minimal inspiratory pressure 8, maximal inspiratory pressure 25, inspiratory time 0.8, rise of 1 and 36% FiO2. I have told the family to bring her home machine in so we can eventually use this in the hospital. 12/12/24: Patient wore the hospital noninvasive ventilator with the AVAPS mode for few hours but said that the mask did not fit properly and the alarms kept her awake. She slept 2 L nasal cannula on. I placed the mask on her this morning and adjusted the mask and she said the machine and mask felt good. Plan: If the patient is able to bring her home noninvasive ventilator she can wear this this evening with 4 L bleed in. Will obtain overnight oximetry on her home noninvasive ventilator. Otherwise patient should wear hospital noninvasive ventilator with the AVAPS mode and settings above with an overnight oximetry. Subjective Date/time seen: 12/12/24 09:04 Interval history: 12/11/2024: This is a new pulmonary consult for COPD exacerbation and noninvasive ventilation. Patient followed in the Pulmonary Clinic and last seen on 09/11/2024: Summary of that visit: Download 11/17/2023 through 02/14/2024 with poor compliance at 31%, adequate pressures and high leak.? I called the patient and she says she has been wearing the machine every night whereas the download records only 1 hour.? DME notified 04/15/2024:? Patient with green and yellow phlegm and SOB.? I treated her for COPD exacerbation prescribed Z-pack and prednisone x5 days. 06/18/2024: Overnight oximetry on noninvasive ventilator with 5 L bleed in with adequate saturations. Patient has had no hospitalizations or exacerbations since 04/15/2024. Overall the patient tells me she is doing pretty good today. She is clinically stable with dyspnea on exertion room to room, her M MRC grade is 3. She can do some cleaning but is no longer going to [employer]. The patient is taking Wixela 500-50 at 1 puff q.day, Spiriva 18 mcg a day and rescue albuterol which she uses 1 time about every 3 months. The patient is using 2 L nasal cannula at rest with saturations 96-97. She is using 3 L with activity and does not measure her home oxygen. The patient is not smoking or exposed to secondhand smoke. Patient's CAT score today has improved from 14 to a value of 7. Patient states she is eating better and has gained 2 lb from 95 lb to 97 lb. The patient is wearing her home noninvasive ventilator every night with a fullface mask and says she sleeps good from 10-5 a.m.. She is wearing 5 L bleed in with this. She assures me she is wearing the every mask every night and I have told her her machine is not transmitting data properly but she says she is wearing her mask and machine every night. Download from?06/03/2024 through 08/12/2024 from [employer]. Patient is on AVAPS-AE, breath rate is 10, tidal volume 520, minimum EPAP 7, maximal EPAP 10, minimum pressure support 8, maximal pressure support 20. inspiratory time 0.6. Rise time 2.0.? % of days used is 1.4%. Days used 4 more hours is 1.4%.? Average usage on days used is 6.4 hours.? Average tidal volume is 461 mL, average minute ventilation is 8.6, average EPAP is 7.3, average peak inspiratory pressures 16.3,? average unintentional leak is 17.7. ??I interpret this download as poor compliance with adequate pressures and high leak.? Of note on 07/31/2024 the [employer] performed a home visit which stated the patient was using her machine with a rate of 12, tidal volume 470, 5 L O2 bleed in and the patient told them the machine helps her breathe at night. Patient states she uses the machine every night but it is not tracking. Plan: continue Wixela but change dose to 250-50 at 1 puff twice a day, continue Spiriva 18 mcg a day and rescue albuterol. Continue her noninvasive ventilator with the AVAPS mode every night With 5 L bleed in. Continue 2 L at rest, 3 L with activity Patient was in her usual state of health on 12/06. On 12/07/2024 she developed a cough, shortness of breath and weakness. Symptoms progressed and she presented to the emergency department on 12/09/2024. Blood pressure 133/70, respirations 34, heart rate 95, saturations on 2 L nasal cannula 96%. She had wheezing and decreased breath sounds. White blood cell count 11.4 with eosinophils 0.1% creatinine 0.57. ABG on 1 L nasal cannula 7.53/44 / oxygen was not measured. Patient had a CT angiogram of the chest Compared to 05/06/2021 that showed severe panlobular emphysema dense infiltrate with new consolidation right upper lobe, right middle lobe and left upper lobe. patient was given Solu-Medrol, bronchodilators, azithromycin and ceftriaxone. 12/11/2024: The patient tells me she is breathing better today, 50-60% back to her normal. Overall her body feels better. She started producing yellow phlegm today and this helps her breathe when she expectorates. She is on 1 L nasal cannula saturation 96%. They attempted to place her on hospital BiPAP machine last night but she could not get enough air and could not tolerate it. I placed the patient on the hospital noninvasive ventilator with the AVAPS mode And adjusting settings to match her home settings and comfort. This resulted in a rate of 10, tidal volume 520, EPAP 7, minimal inspiratory pressure 8, maximal inspiratory pressure 25, inspiratory time 0.8, rise of 1 and 36% FiO2. 12/12/24: Overall the patient tells me she is better. She feels she has 60-70% back to her normal. She has no rest shortness of breath. She has dyspnea on exertion with when using walker and walking to the bathroom. She denies cough, phlegm or hemoptysis. She is afebrile. White blood cell count 8.2, creatinine 0.42, BNP 770, procalcitonin 0.2, CRP 4.5. Chest x-ray today demonstrates no change in her diffuse interstitial alveolar infiltrates right greater than left. MRSA swab is positive and patient started on vancomycin. Patient wore the hospital noninvasive ventilator with the AVAPS mode for few hours but said that the mask did not fit properly and the alarms kept her awake. She slept 2 L nasal cannula on. I placed the mask on her this morning and adjusted the mask and she said the machine and mask felt good. DATA: 06/18/2024: Overnight oximetry on noninvasive ventilator with 5 L bleed in. Recording duration 2 hours and 38 minutes. Basal saturation 96.6%. High saturation 99%. Low saturation 90%. Time with saturation less than or equal to 88% was 0 minutes. Oxygen desaturation index is 0. I will continue noninvasive ventilator with 5 L bleed in at night. 05/08/2023: Alpha 1 anti trypsin genotype MM, normal ??05/11/2021:? Home O2 assessment.? Rest room air saturations 85%, rest 1 L nasal cannula saturation 87%, rest 2 L nasal cannula saturation 94%, ambulation 2 L saturation 90%.? Patient requires 2 L with rest and with activity. ?05/06/21 EXAMINATION: CTA chest PE protocol ??INDICATION: SOB. ??Comparison is made to prior examination from 02/08/2017. ??FINDINGS:? Pulmonary arteries are well opacified and without intraluminal filling defects. ? No thoracic aortic dissection.? There is severe emphysema. Dependent subsegmental atelectasis.? Some endobronchial debris in the bronchus intermedius.? There is no mediastinal, hilar or axillary lymphadenopathy. ? There is no pneumothorax. ? Heart normal in size. ? There is mild coronary arterial calcification, arterial sclerosis.? Upper abdomen is unremarkable. ? There is thoracic spondylosis without osteoblastic or osteolytic lesions identified. ??IMPRESSION: ??1.? Dependent subsegmental atelectasis. ??2.? Some endobronchial debris. ??3.? Severe emphysema. ??4.? No pulmonary emboli. ?? ?07/16/2020: I have a report from PFTs at [facility]? [facility]. ??This is a pulmonary function test with pre and post-bronchodilator spirometry, plethysmography and diffusing capacity.? ?Findings: ?Spirometry: ? There is decreased maximal expiratory airflow at all lung volumes with the concave expiratory flow tracing.? The contour of the inspiratory flow tracing is normal.? The pre bronchodilator FVC is 1.47 L, 63% predicted.? The pre bronchodilator FEV1 is 0.41 L, 24% predicted.? The pre bronchodilator FEV1:? FVC ratio is 28%.? The post bronchodilator FVC is 1.86 L, representing a 27% increase.? The post bronchodilator FEV1 is 0.47 L, representing a 16% increase.? The post bronchodilator FEV1: FVC ratio is 25%.? ?Plethysmography:? Total lung capacity is 6.11 L, 154% predicted.? The functional residual capacity is 5.34 L, 216% predicted.? The residual volume is 4.64 L, 281% predicted.? ?Plethysmography:? The diffusing capacity unadjusted for hemoglobin and carboxyhemoglobin is 3.0, 21% predicted.? The diffusing capacity adjusted for alveolar volume is 1.79, 53% predicted. ?Impression: There is a very severe obstructive abnormality with significant improvement after inhaling a single dose of albuterol. The increase in residual volume is consistent with air trapping from an obstructive abnormality.? Hyperinflation is present as demonstrated by the increase in functional residual capacity and total lung capacity and is consistent with an obstructive abnormality. The diffusing capacity unadjusted for hemoglobin and carboxyhemoglobin is severely decreased and remains moderately decreased when adjusted for alveolar volume. ?There are no prior studies for comparison ? ??09/25/2003 report no raw data available ??TEST: PFT ??FVC, FEV1, GRB1% decreased. There is acute bronchodilator response. Lung volumes are increased. RAW is increased. DLCO is decreased. ??Impression: Severe obstructive ventilatory defect with acute bronchodilator response. Decreased DLCO. ?08/23/1999: Chest X ray report: ??CHEST ??Indication: Fever. ??Technique: PA and lateral views. ??The lungs are prominently hyperinflated, with flattening of the diaphragm and increased retrosternal air space, consistent with chronic obstructive pulmonary disease. ??There are some increased interstitial markings in the lungs, particularly in the right mid and lower lung field which may be chronic. One cannot exclude some interstitial pneumonitis. Correlation clinically and comparison with prior chest radiographs is recommended. No pulmonary consolidation is evident. There is no pleural effusion. No pulmonary vascular congestion or any apparent adenopathy or pneumothorax is noted. ??The cardiac and mediastinal silhouettes are unremarkable. There is mild aortic calcification. ??IMPRESSION: CHRONIC OBSTRUCTIVE PULMONARY DISEASE. ??INCREASED INTERSTITIAL MARKINGS, RIGHT MID AND LOWER ??LUNG BENAVIDEZ ? RECOMMEND COMPARISON WITH PRIOR ??CHEST RADIOGRAPHS AND CLINICAL CORRELATION TO ??DIFFERENTIATE ACUTE FROM CHRONIC. Review of Systems Constitutional: Constitutional: Reports no additional constitutional complaints Eyes: Eyes: Reports no additional eye complaints ENT: Reports system reviewed and no additional complaints, except as documented Cardiovascular: Cardiovascular: Reports no additional cardiovascular complaints Respiratory: Respiratory: Reports no additional respiratory complaints Gastrointestinal: Gastrointestinal: Reports no additional gastrointestinal complaints Musculoskeletal: Musculoskeletal: Reports no additional musculoskeletal complaints Neurologic: Reports system reviewed and no additional complaints, except as documented Psychiatric: Psychiatric: Reports no additional psychiatric complaints Endocrine: Endocrine: Reports no additional endocrine complaints Hematologic/Lymphatic: Hematologic/Lymphatic: Reports no additional hematologic/lymphatic complaints Allergic/Immunologic: Allergic/Immunologic: Reports no additional allergic/immunologic complaints Exam Const: General: cooperative, comfortable and no acute distress Orientation/consciousness: oriented to person, oriented to place and oriented to time Other: Patient is extremely thin. HENMT: Head: normal to inspection Ears: hearing grossly normal bilaterally Eyes: General: appearance normal, both eyes and all related structures Neck: Neck: normal visual inspection Chest: Chest palpation & inspection: normal inspection of the chest Resp: Effort & Inspection: normal respiratory effort and able to speak in complete sentences Auscultation: no crackles, no rales, no rhonchi, no wheezes and diminished lung sounds Other: Throughout, no wheezes, Cardio: Jugular venous distension: no JVD GI: Inspection: normal to inspection Skin: General skin exam: normal color Neuro: General: oriented to person, oriented to place and oriented to time Extrem: General: normal to inspection and no edema Psych: Appearance: grossly normal Objective Data Vital Signs Vital Signs: Vital Signs - 24 hr 12/11/24 11:30 12/11/24 12:00 12/11/24 14:00 Temperature 36.2 C L Pulse Rate 80 78 Respiratory Rate 16 Blood Pressure 117/63 Pulse Oximetry 98 Pulse Oximetry [With Activity During Therapy Session] 91 Oxygen Delivery Nasal Cannula Oxygen Flow Rate 2 12/11/24 14:25 12/11/24 15:53 12/11/24 15:53 Temperature Pulse Rate 82 77 77 Respiratory Rate 18 20 20 Blood Pressure Pulse Oximetry 96 97 Pulse Oximetry [With Activity During Therapy Session] Oxygen Delivery Nasal Cannula Nasal Cannula Oxygen Flow Rate 2 2 12/11/24 16:00 12/11/24 16:04 12/11/24 19:55 Temperature Pulse Rate 80 79 83 Respiratory Rate 20 18 Blood Pressure Pulse Oximetry 91 Pulse Oximetry [With Activity During Therapy Session] Oxygen Delivery Nasal Cannula Oxygen Flow Rate 1 12/11/24 19:55 12/11/24 20:00 12/11/24 20:10 Temperature Pulse Rate 83 85 Respiratory Rate 18 18 Blood Pressure Pulse Oximetry 93 Pulse Oximetry [With Activity During Therapy Session] Oxygen Delivery Nasal Cannula Oxygen Flow Rate 2 12/11/24 20:10 12/11/24 21:26 12/11/24 21:45 Temperature 36.4 C L Pulse Rate 74 76 77 Respiratory Rate 16 10 L Blood Pressure 132/60 Pulse Oximetry 92 97 Pulse Oximetry [With Activity During Therapy Session] Oxygen Delivery BiPAP Oxygen Flow Rate 12/12/24 00:00 12/12/24 02:53 12/12/24 02:53 Temperature Pulse Rate 64 66 Respiratory Rate 18 Blood Pressure Pulse Oximetry 98 98 Pulse Oximetry [With Activity During Therapy Session] Oxygen Delivery Nasal Cannula Oxygen Flow Rate 2 12/12/24 02:53 12/12/24 04:00 12/12/24 05:36 Temperature 36.6 C Pulse Rate 66 63 67 Respiratory Rate 18 13 Blood Pressure 116/52 L Pulse Oximetry 99 Pulse Oximetry [With Activity During Therapy Session] Oxygen Delivery Oxygen Flow Rate 12/12/24 07:27 12/12/24 07:30 12/12/24 07:31 Temperature Pulse Rate 76 Respiratory Rate 16 Blood Pressure Pulse Oximetry 99 99 Pulse Oximetry [With Activity During Therapy Session] Oxygen Delivery Nasal Cannula Nasal Cannula Oxygen Flow Rate 2 12/12/24 07:34 12/12/24 07:37 12/12/24 08:20 Temperature Pulse Rate 74 Respiratory Rate 16 Blood Pressure Pulse Oximetry 100 Pulse Oximetry [With Activity During Therapy Session] Oxygen Delivery Nasal Cannula Nasal Cannula Oxygen Flow Rate 1 1 Intake/Output Intake/Output: Intake & Output 12/09/24 12/10/24 12/11/24 12/12/24 23:59 23:59 23:59 23:59 Intake Total 290 1816 2020 350 Output Total 500 300 Balance 290 1316 1720 350 Meds/Results Medications: Active Medications Generic Name Dose Route Start Last Admin Trade Name Freq PRN Reason Stop Dose Admin Acetaminophen 650 mg 12/09/24 16:10 Acetaminophen 325 Mg Tablet PO Q4H PRN Mild Pain (1-3) or Fever Acetylcysteine 200 mg 12/11/24 20:00 12/12/24 07:25 Acetylcysteine 20% Inhal Soln 800 Mg/4 Ml Vial INHALATION 200 mg Q6HRT DONNA Administration Albuterol 2.5 mg 12/11/24 17:05 Albuterol Sulfate Neb 2.5 Mg/3 Ml Inh INHALATION Q6HRT PRN Wheezing Albuterol/Ipratropium 3 ml 12/11/24 20:00 12/12/24 07:26 Ipratropium 0.5 Mg/Albuterol Sulfate 2.5 Mg Ampul.Neb 3 Ml INHALATION 3 ml Q6HRT DONNA Administration Amlodipine Besylate 10 mg 12/10/24 09:00 12/12/24 08:49 Amlodipine Besylate 10 Mg Tablet BY MOUTH 10 mg DAILY DONNA Administration Artificial Tears 1 drop 12/10/24 08:48 12/11/24 21:30 Artificial Tears Ophth Soln 15 Ml Bottle EACH EYE 1 drop QID PRN Administration Dry Eye(s) Enoxaparin Sodium 40 mg 12/10/24 09:00 12/12/24 08:49 Enoxaparin 40 Mg/0.4 Ml Syringe SUB-Q 40 mg DAILY DONNA Administration Guaifenesin 1,200 mg 12/09/24 21:00 12/12/24 08:49 Guaifenesin 12 Hr 600 Mg Tabcr PO 1,200 mg Q12HR DONNA Administration Hydrocortisone Sodium Succinate 50 mg 12/11/24 18:00 12/12/24 06:18 Hydrocortisone Sodium Succinate 100 Mg/2 Ml Vial IV PUSH 50 mg Q6HR DONNA Administration Ceftriaxone Sodium 1 gm/ 50 mls @ 100 mls/hr 12/10/24 14:00 12/11/24 14:38 Sodium Chloride IVPB Infused Q24H DONNA Infusion Azithromycin 500 mg/ Sodium 250 mls @ 250 mls/hr 12/10/24 15:00 12/11/24 15:47 Chloride IVPB 12/13/24 15:59 Infused Q24H DONNA Infusion Vancomycin HCl 750 mg in 250 mls @ 250 mls/hr 12/12/24 19:00 Vancomycin 750 Mg/Ns 250 Ml IVPB Q18H DONNA Mupirocin 1 applic 12/12/24 09:00 12/12/24 08:50 Mupirocin 2% Oint 22 Gm Tube EACH NARE 12/16/24 21:01 1 applic Q12HR DONNA Administration Perflutren Lipid Microsphere 0 ml 12/11/24 16:55 Perflutren Lipid Microspheres 1.5 Ml Vial Diluted To 10 Ml Total Volume IV PUSH 12/14/24 16:55 ONCE PRN adequate visualization Protocol Radiology Results: ITS Impressions Chest CTA 12/09/24 14:51 IMPRESSION: 1. No pulmonary embolism. 2. Severe emphysema with extensive airspace disease in the right upper lobe including dense consolidation in the suprahilar region consistent with pneumonia. Possible additional small region of pneumonia versus atelectasis at the peripheral left upper lobe. 3. Very small right pleural effusion. Chest X-Ray 12/12/24 06:29 Impression: 1: No significant change compared with 12/09/2024 allowing for technique. Labs Labs: Laboratory Results - last 24 hr 12/11/24 12/11/24 12/12/24 17:11 17:12 04:50 WBC 8.2 RBC 3.70 L Hgb 11.0 L Hct 35.5 L MCV 95.9 MCH 29.7 MCHC 31.0 L RDW 13.2 Plt Count 256 MPV 9.2 Immature Gran % (Auto) 0.5 Neut % (Auto) 91.1 H Lymph % (Auto) 4.5 L Coleman % (Auto) 3.8 Eos % (Auto) 0.0 Baso % (Auto) 0.1 L Lymph # (Auto) 0.37 L Coleman # (Auto) 0.3 Eos # (Auto) 0.0 Baso # (Auto) 0.0 Abs Immat Gran (auto) 0.04 H Absolute Neuts (auto) 7.5 H Absolute Nucleated RBC 0.000 Nucleated RBC % 0.0 Sodium 135 L Potassium 4.4 Chloride 96 L Carbon Dioxide > 40 H Anion Gap BUN 16 Creatinine 0.49 L Estim Creat Clear Calc 55 Estimated GFR > 60 Glucose 139 H Calcium 8.9 Magnesium 2.2 Total Bilirubin 0.1 L AST 28 ALT 13 Alkaline Phosphatase 68 C-Reactive Protein 4.5 H NT-Pro-B Natriuret Pep 770 H Total Protein 5.7 L Albumin 2.8 L Procalcitonin 0.2 Nasal MRSA (PCR) Detected A* Influenza A (RT-PCR) Negative Influenza B (RT-PCR) Negative RSV (RT-PCR) Negative SARS-CoV-2 RNA (RT-PCR) Negative
[2024-12-12] MEDS: levoFLOXacin 750 MG/D5W 150 ML 750 MG/150 ML BAG 100 MG IVPB (10:04)
[2024-12-12] MEDS: HYDROCORTISONE SODIUM SUCCINATE 100 MG/2 ML VIAL 25 MG IV PUSH ×2 (11:12→18:01)
--- NOTE | 2024-12-12 11:30 | P.PNIM_ITS ---
Progress Note: A&P Assessment and Plan (1) COPD (chronic obstructive pulmonary disease): Code(s): J44.9 - Chronic obstructive pulmonary disease, unspecified Status: Acute Assessment and Plan: COPD exacerbation Rocephin and Zithromax DuoNebs Solu-Medrol Blood cultures pending 12/10/24: * Continue Rocephin and azithromycin, DuoNebs and Solu-Medrol as well as Incruse Ellipta * Await results of blood cultures * Patient at baseline 2 L supplemental oxygen. 12/11/24: * Continue Rocephin and azithromycin, DuoNebs and Solu-Medrol as well as Incruse Ellipta * Blood cultures no grow to date. * Patient at baseline 2 L supplemental oxygen. * Nutritionist Public Health referral, she is a patient of Dr. Díaz. * Decrease Methylprednisolone 60 mg ivp q12. 12/12/24: * Continue all treatments. * Abx were changed today to po Levaquin. * Being followed by Dr. Tate. (2) Chronic respiratory failure with hypoxia and hypercapnia: Code(s): J96.11 - Chronic respiratory failure with hypoxia; J96.12 - Chronic respiratory failure with hypercapnia Status: Acute Assessment and Plan: Acute on chronic Currently on home O2 oxygen settings 12/10/24: * See 1. Above. * No new increase in oxygen requirement. 12/11/24: * Unchanged 12/12/24: * Continue supplemental oxygen. (3) Other abnormalities of gait and mobility: Code(s): R26.89 - Other abnormalities of gait and mobility Status: Acute Assessment and Plan: 12/10/24: * Patient with complaints of weakness today. States she has not been out of bed since she has been here and does not feel that she could walk independently as she normally does at baseline. * PT OT evaluation ordered for discharge recommendations. Suspect will discharge in next 1-2 days * Fall precautions 12/11/24: * PT/OT * Fall precautions. 12/12/24: * Family would like pt to go to a rehab/snf, but she refuses at discharge wanting to go home instead. (4) Anxiety disorder, unspecified: Code(s): F41.9 - Anxiety disorder, unspecified Status: Chronic Assessment and Plan: Not on medication 12/10/24: * Appears stable without any p.r.n. needs for control (5) HTN (hypertension): Code(s): I10 - Essential (primary) hypertension Status: Chronic Assessment and Plan: Continue Norvasc 12/10/24: * Currently well controlled. Continue home medications of amlodipine. * Monitor and trend labs and vital signs. 12/12/24: * Stable 1-teens - 130s/50s-70s. * Continue current treatment. (6) Dry eye: Code(s): H04.129 - Dry eye syndrome of unspecified lacrimal gland Status: Chronic Assessment and Plan: 12/10/2024: * Artificial tears ordered Time Spent With Patient Time with patient: 15 - 25 minutes Subjective Date/time seen: 12/12/24 11:30 Interval history: This pt was examined today sitting at the bedside in chair in no acute distress. She remains on supplemental oxygen at this time. She is being followed by Pulmonology and today they have changed her abx to oral Levaquin. Repeat CXR this AM shows no interval change. She has no new complaints today and no new symptoms. Review of Systems Review of Systems: All systems reviewed & are unremarkable except as noted in HPI and below Exam Narrative: General: Chronically ill no distress BMI of 19.1 HEENT: normocephalic, atraumatic. MMM, PERRLA, no tearing Respiratory: Prolonged expiratory phase, diminished in bases bilaterally. No active wheezing. Cardiovascular: RRR, S1 and S2 present. No S3, S4, murmur, rub, gallop, heave or displacement PMI. Abdomen: Soft, round, no pulsatile masses, nondistended and nontender. No rebound, no guarding. Bowel sounds present x4 Extremities: No cyanosis, clubbing, or edema present. Pulses are palpable 2/2. Active ROM to all four extremities. Neuro: Alert and orientated x 4. PERRLA. No focal deficits. Skin: Warm, dry, and intact, without rash, erythema, or lesion. Psych: pleasant, cooperative, normal speech, normal affect, no hallucinations, no dysarthia Objective Data Vital Signs Vital Signs: Vital Signs - 24 hr 12/11/24 12:00 12/11/24 14:00 12/11/24 14:25 Temperature 97.1 F L Pulse Rate 80 78 82 Respiratory Rate 16 18 Blood Pressure 117/63 Pulse Oximetry 98 96 Oxygen Delivery Nasal Cannula Oxygen Flow Rate 2 12/11/24 15:53 12/11/24 15:53 12/11/24 16:00 Temperature Pulse Rate 77 77 80 Respiratory Rate 20 20 Blood Pressure Pulse Oximetry 97 Oxygen Delivery Nasal Cannula Oxygen Flow Rate 2 12/11/24 16:04 12/11/24 19:55 12/11/24 19:55 Temperature Pulse Rate 79 83 83 Respiratory Rate 20 18 18 Blood Pressure Pulse Oximetry 91 Oxygen Delivery Nasal Cannula Oxygen Flow Rate 1 12/11/24 20:00 12/11/24 20:10 12/11/24 20:10 Temperature Pulse Rate 85 74 Respiratory Rate 18 Blood Pressure Pulse Oximetry 93 Oxygen Delivery Nasal Cannula Oxygen Flow Rate 2 12/11/24 21:26 12/11/24 21:45 12/12/24 00:00 Temperature 97.5 F L Pulse Rate 76 77 64 Respiratory Rate 16 10 L Blood Pressure 132/60 Pulse Oximetry 92 97 Oxygen Delivery BiPAP Oxygen Flow Rate 12/12/24 02:53 12/12/24 02:53 12/12/24 02:53 Temperature Pulse Rate 66 66 Respiratory Rate 18 18 Blood Pressure Pulse Oximetry 98 98 Oxygen Delivery Nasal Cannula Oxygen Flow Rate 2 12/12/24 04:00 12/12/24 05:36 12/12/24 07:27 Temperature 97.8 F Pulse Rate 63 67 76 Respiratory Rate 13 16 Blood Pressure 116/52 L Pulse Oximetry 99 Oxygen Delivery Oxygen Flow Rate 12/12/24 07:30 12/12/24 07:31 12/12/24 07:34 Temperature Pulse Rate 74 Respiratory Rate 16 Blood Pressure Pulse Oximetry 99 99 Oxygen Delivery Nasal Cannula Nasal Cannula Oxygen Flow Rate 2 12/12/24 07:37 12/12/24 08:00 12/12/24 08:00 Temperature Pulse Rate 86 Respiratory Rate Blood Pressure Pulse Oximetry 100 99 Oxygen Delivery Nasal Cannula Nasal Cannula Oxygen Flow Rate 1 1 12/12/24 08:20 Temperature Pulse Rate Respiratory Rate Blood Pressure Pulse Oximetry Oxygen Delivery Nasal Cannula Oxygen Flow Rate 1 Intake/Output Intake/Output: Intake & Output 12/09/24 12/10/24 12/11/24 12/12/24 23:59 23:59 23:59 23:59 Intake Total 290 1816 2020 890 Output Total 500 300 500 Balance 290 1316 1720 390 Meds/Results Medications: Active Medications Generic Name Dose Route Start Last Admin Trade Name Freq PRN Reason Stop Dose Admin Acetaminophen 650 mg 12/09/24 16:10 Acetaminophen 325 Mg Tablet PO Q4H PRN Mild Pain (1-3) or Fever Acetylcysteine 200 mg 12/11/24 20:00 12/12/24 07:25 Acetylcysteine 20% Inhal Soln 800 Mg/4 Ml Vial INHALATION 200 mg Q6HRT DONNA Administration Albuterol 2.5 mg 12/11/24 17:05 Albuterol Sulfate Neb 2.5 Mg/3 Ml Inh INHALATION Q6HRT PRN Wheezing Albuterol/Ipratropium 3 ml 12/11/24 20:00 12/12/24 07:26 Ipratropium 0.5 Mg/Albuterol Sulfate 2.5 Mg Ampul.Neb 3 Ml INHALATION 3 ml Q6HRT DONNA Administration Amlodipine Besylate 10 mg 12/10/24 09:00 12/12/24 08:49 Amlodipine Besylate 10 Mg Tablet BY MOUTH 10 mg DAILY DONNA Administration Artificial Tears 1 drop 12/10/24 08:48 12/11/24 21:30 Artificial Tears Ophth Soln 15 Ml Bottle EACH EYE 1 drop QID PRN Administration Dry Eye(s) Enoxaparin Sodium 40 mg 12/10/24 09:00 12/12/24 08:49 Enoxaparin 40 Mg/0.4 Ml Syringe SUB-Q 40 mg DAILY DONNA Administration Guaifenesin 1,200 mg 12/09/24 21:00 12/12/24 08:49 Guaifenesin 12 Hr 600 Mg Tabcr PO 1,200 mg Q12HR DONNA Administration Hydrocortisone Sodium Succinate 25 mg 12/12/24 12:00 12/12/24 11:12 Hydrocortisone Sodium Succinate 100 Mg/2 Ml Vial IV PUSH 25 mg Q6HR DONNA Administration Vancomycin HCl 750 mg in 250 mls @ 250 mls/hr 12/12/24 19:00 Vancomycin 750 Mg/Ns 250 Ml IVPB Q18H DONNA Levofloxacin/Dextrose 750 mg in 150 mls @ 100 mls/hr 12/12/24 09:30 12/12/24 10:04 Levaquin 750 Mg/D5w 150 Ml IVPB 100 mls/hr DAILY DONNA Administration Mupirocin 1 applic 12/12/24 09:00 12/12/24 08:50 Mupirocin 2% Oint 22 Gm Tube EACH NARE 12/16/24 21:01 1 applic Q12HR DONNA Administration Perflutren Lipid Microsphere 0 ml 12/11/24 16:55 Perflutren Lipid Microspheres 1.5 Ml Vial Diluted To 10 Ml Total Volume IV PUSH 12/14/24 16:55 ONCE PRN adequate visualization Protocol Radiology Results: ITS Impressions Chest CTA 12/09/24 14:51 IMPRESSION: 1. No pulmonary embolism. 2. Severe emphysema with extensive airspace disease in the right upper lobe including dense consolidation in the suprahilar region consistent with pn eum[place]. Possible additional small region of pneumonia versus atelectasis at the peripheral left upper lobe. 3. Very small right pleural effusion. Chest X-Ray 12/12/24 06:29 Impression: 1: No significant change compared with 12/09/2024 allowing for technique. Labs Labs: Laboratory Results - last 24 hr 12/11/24 12/11/24 12/12/24 17:11 17:12 04:50 WBC 8.2 RBC 3.70 L Hgb 11.0 L Hct 35.5 L MCV 95.9 MCH 29.7 MCHC 31.0 L RDW 13.2 Plt Count 256 MPV 9.2 Immature Gran % (Auto) 0.5 Neut % (Auto) 91.1 H Lymph % (Auto) 4.5 L [place] % (Auto) 3.8 Eos % (Auto) 0.0 Baso % (Auto) 0.1 L Lymph # (Auto) 0.37 L [place] # (Auto) 0.3 Eos # (Auto) 0.0 Baso # (Auto) 0.0 Abs Immat Gran (auto) 0.04 H Absolute Neuts (auto) 7.5 H Absolute Nucleated RBC 0.000 Nucleated RBC % 0.0 Sodium 135 L Potassium 4.4 Chloride 96 L Carbon Dioxide > 40 H Anion Gap BUN 16 Creatinine 0.49 L Estim Creat Clear Calc 55 Estimated GFR > 60 Glucose 139 H Calcium 8.9 Magnesium 2.2 Total Bilirubin 0.1 L AST 28 ALT 13 Alkaline Phosphatase 68 C-Reactive Protein 4.5 H NT-Pro-B Natriuret Pep 770 H Total Protein 5.7 L Albumin 2.8 L Procalcitonin 0.2 Nasal MRSA (PCR) Detected A* Influenza A (RT-PCR) Negative Influenza B (RT-PCR) Negative RSV (RT-PCR) Negative SARS-CoV-2 RNA (RT-PCR) Negative Quality VTE Prophylaxis VTE prophylaxis: pharmacologic ordered
[2024-12-12] MEDS: VANCOMYCIN 750 MG/NS 250 ML 750 MG/250 ML BAG 150 MG IVPB (18:02)
[2024-12-12] MEDS: ARTIFICIAL TEARS OPHTH SOLN 15 ML BOTTLE 1 DROP EACH EYE (21:23)
[2024-12-13] VITALS (19 sets, daily range): BP systolic 119–168; BP diastolic 57–89; PULSE 62–85; RESP 16–20; TEMP 36–36.4; O2SAT 94–100
[2024-12-13] MEDS: HYDROCORTISONE SODIUM SUCCINATE 100 MG/2 ML VIAL 25 MG IV PUSH ×2 (03:00→06:23)
--- NOTE | 2024-12-13 05:14 | PCRCNOTE ---
0200 neb tx was omitted due to oximetry study
[2024-12-13 06:59] LABS: Hematocrit 37.3 % (37.0-47.0); Hemoglobin 11.5 g/dL (12.0-15.0); Immature Granulocyte Percent A 0.6 % (0-0.5); Lymphocytes Absolute Auto 0.64 K/mm3 (0.9-3.2); Mean Corpuscular HGB Conc 30.8 g/dl (32-36); Mean Corpuscular Hemoglobin 29.1 pg (26-34); Mean Corpuscular Volume 94.4 fl (80-100); Nucleated Red Blood Cells Absolute Auto 0.000 K/mm3 (0.0-0.012); Nucleated Red Blood Cells Perc 0.0 % (0.0-0.2); Platelet Count Result 276 k/mm3 (150-375); Red Blood Count 3.95 M/mm3 (4.2-5.4); White Blood Count 6.8 K/mm3 (4.5-10.0)
[2024-12-13 07:27] LABS: Alanine Aminotransferase 12 U/L (6-35); Albumin Level 2.9 g/dL (3.5-5.1); Alkaline Phosphatase 60 U/L (38-126); Anion Gap 2 mmol/L (4-12); Aspartate Amino Transferase 22 U/L (14-36); Bilirubin,Total 0.2 mg/dL (0.2-1.3); Blood Urea Nitrogen 17 mg/dL (7-17); Calcium 8.7 mg/dL (8.4-10.2); Carbon Dioxide 39 mmol/L (22-30); Chloride 93 mmol/L (98-107); Estimated CRCL calculation 48 ml/min; Estimated Glomerular Filt Rate > 60; Glucose 85 mg/dL (65-110); Magnesium 2.3 mg/dL (1.6-2.3); Potassium 3.9 mmol/L (3.4-5.0); Sodium 134 mmol/L (137-145); Total Protein 5.5 g/dL (6.3-8.2)
[2024-12-13] MEDS: ACETYLCYSTEINE 20% INHAL SOLN 800 MG/4 ML VIAL 200 MG INHALATION ×4 (07:40→20:09)
[2024-12-13] MEDS: IPRATROPIUM 0.5 MG/ALBUTEROL SULFATE 2.5 MG AMPUL.NEB 3 ML INHALATION ×4 (07:40→20:09)
[2024-12-13] MEDS: guaiFENesin 12 HR 600 MG TABCR 1200 MG PO (09:11)
[2024-12-13] MEDS: ENOXAPARIN 40 MG/0.4 ML SYRINGE SUB-Q (09:11)
[2024-12-13] MEDS: levoFLOXacin 750 MG/D5W 150 ML 750 MG/150 ML BAG 100 MG IVPB (09:13)
[2024-12-13] MEDS: MUPIROCIN 2% OINT 22 GM TUBE 1 APPLIC EACH NARE ×2 (09:14→21:24)
--- NOTE | 2024-12-13 09:24 | PM.PNPUL ---
Progress Note: A&P Assessment and Plan (1) Pneumonia: Code(s): J18.9 - Pneumonia, unspecified organism Status: Acute Assessment and Plan: Patient presents with an acute respiratory illness starting 12/07/2024 with progressive worsening weakness, shortness of breath, dyspnea on exertion. CT scan shows new dense consolidations in the right upper lobe, right middle lobe and left upper lobe compared to 05/06/2021. Patient was started on Solu-Medrol, bronchodilators, ceftriaxone and azithromycin and feels improved. PSI score 110 consistent with severe community-acquired pneumonia. 12/11/2024: The patient tells me she is breathing better today, 50-60% back to her normal. Overall her body feels better. She started producing yellow phlegm today and this helps her breathe when she expectorates. She is on 1 L nasal cannula saturation 96%. Plan: Blood cultures are pending. I will send sputum culture, COVID, RSV, influenza RT PCR, urine for Legionella antigen, urine for pneumococcal antigen, extended respiratory pathogen panel, serum mycoplasma IgM. I will check CRP and procalcitonin on 12/11/2024. Patient appears to be clinically responding to ceftriaxone and azithromycin, both day 2 and I will continue. Currently the patient is on Solu-Medrol 60 q.12 hours. I hear no wheezing and I will change her to Solu-Cortef 50 q.6 hours for severe community-acquired pneumonia. I will order an echocardiogram for 12/12/2024. I will repeat a chest x-ray on 12/12. 12/12/24: Overall the patient tells me she is better. She feels she has 60-70% back to her normal. She has no rest shortness of breath. She has dyspnea on exertion with when using walker and walking to the bathroom. She denies cough, phlegm or hemoptysis. She is afebrile. White blood cell count 8.2, creatinine 0.42, BNP 770, procalcitonin 0.2, CRP 4.5. Chest x-ray today demonstrates no change in her diffuse interstitial alveolar infiltrates right greater than left. MRSA swab is positive and patient started on vancomycin. Plan: Patient with a history of Pseudomonas that was pansensitive on 09/29/2019. MRSA is positive. Will change patient's ceftriaxone and azithromycin to Levaquin and continue vancomycin. Patient has been on systemic steroids since 12/09 (day 4) she remains hemodynamically stable, oxygenation is stable, Chest x-ray stable, will decrease Solu-Cortef to 25 q.6 today. Blood cultures negative. Sputum culture, echocardiogram, respiratory pathogen panel, urine Legionella, urine pneumococcal antigen, serum mycoplasma IgM pending. Later in the day patient had an echocardiogram with an LVEF of 60-65%, grade 1 diastolic dysfunction, normal right ventricular size and function, normal right atrial size, trace mitral regurg, no tricuspid regurg. 12/13/2024: patient tells me she continues to improve. States he is 80% back to her normal. She has no cough, no phlegm, no hemoptysis. She has no shortness of breath at rest she has dyspnea on exertion when she walks across the room. When I enter the room she was on 1 L nasal cannula saturations 98%. I decreased her to room air and after 4 minutes her saturations were 87% placed her back on 1 L and her saturations were 97%. She is afebrile. White blood skull count 6.8, creatinine 0.57. Yesterday she was positive 1.4 L and cumulative she is positive 4.7 L since admission. Weight today is 46.3. Yesterday she walked 92 ft with physical therapy on 2 L her saturation decreased into the low 80s. Increase to 4 L and patient recovered to 99%. Plan: patient continues to improve. Continue levofloxacin, day 2 and vancomycin, day 2 ( total antibiotics day 4). Will continue these IV antibiotics while she is in the hospital. Blood cultures negative to date. Sputum culture, respiratory pathogen panel, urine Legionella, urine pneumococcal antigen, serum mycoplasma IgM pending. If the patient is discharged over the weekend with discharged on these pulmonary medications: Linezolid 600 mg p.o. q.12 hours last dose on 12/21/2024 Levofloxacin 750 mg p.o. Q 48 hours, last dose on 12/21/2024. Wixela 250-50 1 puff b.i.d. Tiotropium bromide 18 mcg 1 puff q.day Rescue albuterol 2 puffs q.4 hours p.r.n. shortness of breath or wheezing Guaifenesin 1200 mg p.o. b.i.d. Cornet flutter valve q.4 hours while awake. When she naps or sleeps home [facility] rate is 10, tidal volume 520, minimum EPAP 7, maximal EPAP 10, minimum pressure support 8, maximal pressure support 20. inspiratory time 0.6. Rise time 2.0, with oxygen is guided by overnight oximetry on 2 L on 12/13/2024. Oxygen at rest and with activity per facility protocol. if she goes home she should have a formal home O2 assessment prior to discharge Follow-up in the Pulmonary Clinic in 3-4 weeks. I gave her my business card today and informed our construction scheduler. Inpatient pulmonary consult service will resume on 12/16. Call with questions. Discussed with Dr. Gerber, will follow with you. (2) COPD (chronic obstructive pulmonary disease): Code(s): J44.9 - Chronic obstructive pulmonary disease, unspecified Status: Acute Assessment and Plan: GOLD grade 4 group B COPD COPD diagnosed in 1999 with chronic hypoxic and hypercarbic respiratory failure on noninvasive ventilation and on home oxygen 2.0 L 24-7. Tobacco use (40 PY quit 2010). 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 PFTs 07/16/2020 with an FEV1 of 0.41 L, 24% predicted, ratio 28%, air trapping, hyperinflation and a moderately decreased DLCO when adjusted for alveolar volume. CTA on 05/06/2021 with severe panlobular emphysema in all lung benavidez. Maintained on triple inhalers. In patient exacerbation 05/06/2021 through 05/11/2021, Outpatient exacerbation 06/15/2021. outpatient COPD Exacerbation 11/03/2023. 01/10/2022 with a white blood cell count of 6.7, eosinophils 0.6%=40/uL. 07/18/2022: White blood cell count 5.6, eosinophils 0.4% equal 22 per micro L. 06/26/2023: White blood cell count 5.6, eosinophils 0.2%=11/uL. Patient has been on noninvasive ventilation at night since 05/11/2021. Patient states at baseline she can walk 1/4 block, she can clean her house, she has no chronic cough, no chronic phlegm production, does not wheeze. ? she is maintained on Advair 500-50 at 1 puff b.i.d. and tiotropium bromide 18 mcg at 1 puff q.day. CAT score 21 on 06/15/2021.? 12/11/24: Patient has no wheezing at this time. She has a pneumonia and possible COPD exacerbation. currently she is on 1 L nasal cannula saturations 96%. Plan: Continue treatment for pneumonia as above. A change her steroids to Solu-Cortef 50 q.6 for community-acquired pneumonia dose. I will place her on DuoNebs q.6 hours, Mucomyst 200 q.6 hours, continue guaifenesin 1200 p.o. b.i.d. to help her expectorate. Goal saturation 90-94%. 12/12/24: No wheezing at this time. she has no cough and no phlegm production today. currently tolerating 1 L nasal cannula. Plan: Solu-Cortef 25 q.6, DuoNebs q.6, Mucomyst q.6 and guaifenesin 1200 p.o. b.i.d. 12/13/24: No wheezing. No cough and no phlegm production. Tolerating 1 L at rest. Plan: I will discontinue Solu-Cortef today (day 5), I will change DuoNebs and Mucomyst to q.4 hours while awake. Continue guaifenesin 1200 p.o. b.i.d.. Continue Cornet flutter valve. (3) Chronic respiratory failure with hypoxia and hypercapnia: Code(s): J96.11 - Chronic respiratory failure with hypoxia; J96.12 - Chronic respiratory failure with hypercapnia Status: Acute Assessment and Plan: Patient with chronic hypoxemic respiratory failure requiring 2 L at rest, 3 L with activity and 5 L bleed in with her noninvasive ventilator. Patient use nocturnal noninvasive ventilation for chronic hypercarbic respiratory failure with the [facility]. Attempted to place her on hospital BiPAP machine last night but she could not get enough air and could not tolerate it. Download from [employer] from 08/12/2024 through 10/15/2024: Patient is on AVAPS-AE, breath rate is 10, tidal volume 520, minimum EPAP 7, maximal EPAP 10, minimum pressure support 8, maximal pressure support 20. inspiratory time 0.6. Rise time 2.0.? % of days used 4 more hours is 98%.? Average usage on days used is 6 hour s25 minutes.? median tidal volume is 678 mL, median minute ventilation is 6.8, Fifth percentile EPAP 6.8. median EPAP is 9.2, median peak inspiratory pressures 17.8,? average unintentional leak is 1.0. ??I interpret this download as excellent compliance with adequate pressures and low leak.? Of note the patient says she has not been able to wear the machine the last 2 weeks because it has been too hot in her trailer. Plan: I placed the patient on the hospital noninvasive ventilator with the AVAPS mode and adjusting settings to match her home settings and comfort. This resulted in a rate of 10, tidal volume 520, EPAP 7, minimal inspiratory pressure 8, maximal inspiratory pressure 25, inspiratory time 0.8, rise of 1 and 36% FiO2. I have told the family to bring her home machine in so we can eventually use this in the hospital. 12/12/24: Patient wore the hospital noninvasive ventilator with the AVAPS mode for few hours but said that the mask did not fit properly and the alarms kept her awake. She slept 2 L nasal cannula on. I placed the mask on her this morning and adjusted the mask and she said the machine and mask felt good. Plan: If the patient is able to bring her home noninvasive ventilator she can wear this this evening with 4 L bleed in. Will obtain overnight oximetry on her home noninvasive ventilator. Otherwise patient should wear hospital noninvasive ventilator with the AVAPS mode and settings above with an overnight oximetry. 12/13/24: Patient wore home noninvasive ventilator AVAPS-AE, breath rate is 10, tidal volume 520, minimum EPAP 7, maximal EPAP 10, minimum pressure support 8, maximal pressure support 20. inspiratory time 0.6. Rise time 2.0, with 4 L bleed in and had an overnight oximetry with recording duration of 6 hours and 18 minutes. Average saturation 96%. Low saturation 92%. Time with saturation less than or equal to 88% was 0 minutes. Oxygen desaturation index 0. Plan: Will continue patient's home noninvasive ventilator. Will perform overnight oximetry on her home noninvasive ventilator with 2 L bleed in. Subjective Date/time seen: 12/13/24 09:24 Interval history: 12/11/2024: This is a new pulmonary consult for COPD exacerbation and noninvasive ventilation. Patient followed in the Pulmonary Clinic and last seen on 09/11/2024: Summary of that visit: Download 11/17/2023 through 02/14/2024 with poor compliance at 31%, adequate pressures and high leak.? I called the patient and she says she has been wearing the machine every night whereas the download records only 1 hour.? DME notified 04/15/2024:? Patient with green and yellow phlegm and SOB.? I treated her for COPD exacerbation prescribed Z-pack and prednisone x5 days. 06/18/2024: Overnight oximetry on noninvasive ventilator with 5 L bleed in with adequate saturations. Patient has had no hospitalizations or exacerbations since 04/15/2024. Overall the patient tells me she is doing pretty good today. She is clinically stable with dyspnea on exertion room to room, her M MRC grade is 3. She can do some cleaning but is no longer going to [employer]. The patient is taking Wixela 500-50 at 1 puff q.day, Spiriva 18 mcg a day and rescue albuterol which she uses 1 time about every 3 months. The patient is using 2 L nasal cannula at rest with saturations 96-97. She is using 3 L with activity and does not measure her home oxygen. The patient is not smoking or exposed to secondhand smoke. Patient's CAT score today has improved from 14 to a value of 7. Patient states she is eating better and has gained 2 lb from 95 lb to 97 lb. The patient is wearing her home noninvasive ventilator every night with a fullface mask and says she sleeps good from 10-5 a.m.. She is wearing 5 L bleed in with this. She assures me she is wearing the every mask every night and I have told her her machine is not transmitting data properly but she says she is wearing her mask and machine every night. Download from?06/03/2024 through 08/12/2024 from [facility]. Patient is on AVAPS-AE, breath rate is 10, tidal volume 520, minimum EPAP 7, maximal EPAP 10, minimum pressure support 8, maximal pressure support 20. inspiratory time 0.6. Rise time 2.0.? % of days used is 1.4%. Days used 4 more hours is 1.4%.? Average usage on days used is 6.4 hours.? Average tidal volume is 461 mL, average minute ventilation is 8.6, average EPAP is 7.3, average peak inspiratory pressures 16.3,? average unintentional leak is 17.7. ??I interpret this download as poor compliance with adequate pressures and high leak.? Of note on 07/31/2024 the [facility] performed a home visit which stated the patient was using her machine with a rate of 12, tidal volume 470, 5 L O2 bleed in and the patient told them the machine helps her breathe at night. Patient states she uses the machine every night but it is not tracking. Plan: continue Wixela but change dose to 250-50 at 1 puff twice a day, continue Spiriva 18 mcg a day and rescue albuterol. Continue her noninvasive ventilator with the AVAPS mode every night With 5 L bleed in. Continue 2 L at rest, 3 L with activity Patient was in her usual state of health on 12/06. On 12/07/2024 she developed a cough, shortness of breath and weakness. Symptoms progressed and she presented to the emergency department on 12/09/2024. Blood pressure 133/70, respirations 34, heart rate 95, saturations on 2 L nasal cannula 96%. She had wheezing and decreased breath sounds. White blood cell count 11.4 with eosinophils 0.1% creatinine 0.57. ABG on 1 L nasal cannula 7.53/44 / oxygen was not measured. Patient had a CT angiogram of the chest Compared to 05/06/2021 that showed severe panlobular emphysema dense infiltrate with new consolidation right upper lobe, right middle lobe and left upper lobe. patient was given Solu-Medrol, bronchodilators, azithromycin and ceftriaxone. 12/11/2024: The patient tells me she is breathing better today, 50-60% back to her normal. Overall her body feels better. She started producing yellow phlegm today and this helps her breathe when she expectorates. She is on 1 L nasal cannula saturation 96%. They attempted to place her on hospital BiPAP machine last night but she could not get enough air and could not tolerate it. I placed the patient on the hospital noninvasive ventilator with the AVAPS mode And adjusting settings to match her home settings and comfort. This resulted in a rate of 10, tidal volume 520, EPAP 7, minimal inspiratory pressure 8, maximal inspiratory pressure 25, inspiratory time 0.8, rise of 1 and 36% FiO2. 12/12/24: Overall the patient tells me she is better. She feels she has 60-70% back to her normal. She has no rest shortness of breath. She has dyspnea on exertion with when using walker and walking to the bathroom. She denies cough, phlegm or hemoptysis. She is afebrile. White blood cell count 8.2, creatinine 0.42, BNP 770, procalcitonin 0.2, CRP 4.5. Chest x-ray today demonstrates no change in her diffuse interstitial alveolar infiltrates right greater than left. MRSA swab is positive and patient started on vancomycin. Patient wore the hospital noninvasive ventilator with the AVAPS mode for few hours but said that the mask did not fit properly and the alarms kept her awake. She slept 2 L nasal cannula on. I placed the mask on her this morning and adjusted the mask and she said the machine and mask felt good. Later in the day patient had an echocardiogram with an LVEF of 60-65%, grade 1 diastolic dysfunction, normal right ventricular size and function, normal right atrial size, trace mitral regurg, no tricuspid regurg. 12/13/2024: patient tells me she continues to improve. States he is 80% back to her normal. She has no cough, no phlegm, no hemoptysis. She has no shortness of breath at rest she has dyspnea on exertion when she walks across the room. When I enter the room she was on 1 L nasal cannula saturations 98%. I decreased her to room air and after 4 minutes her saturations were 87% placed her back on 1 L and her saturations were 97%. She is afebrile. White blood skull count 6.8, creatinine 0.57. Yesterday she was positive 1.4 L and cumulative she is positive 4.7 L since admission. Weight today is 46.3. Yesterday she walked 92 ft with physical therapy on 2 L her saturation decreased into the low 80s. Increase to 4 L and patient recovered to 99%. Patient wore home noninvasive ventilator AVAPS-AE, breath rate is 10, tidal volume 520, minimum EPAP 7, maximal EPAP 10, minimum pressure support 8, maximal pressure support 20. inspiratory time 0.6. Rise time 2.0, with 4 L bleed in and had an overnight oximetry with recording duration of 6 hours and 18 minutes. Average saturation 96%. Low saturation 92%. Time with saturation less than or equal to 88% was 0 minutes. Oxygen desaturation index 0. DATA: 12/12/24: Echo Summary 1. Complete two-dimensional, color flow and Doppler transthoracic echocardiogram is performed. 2. Left ventricular chamber dimension is normal. 3. Left ventricular systolic function is normal, estimated at 60-65. 4. The left ventricular diastolic function is grade I diastolic dysfunction. 5. E/e' 9 is minimally elevated. 6. There is moderate aortic valve sclerosis. 7. There is trace mitral valve regurgitation. Right Ventricle Right ventricular chamber dimension is normal. Right ventricular systolic function is normal and with TAPSE 1.7 cm. Left Atria Left atrial chamber dimension is normal. Right Atria Right atrial chamber dimension is normal. 12/09/24: EXAMINATION: CTA chest PE protocol INDICATION: Shortness of breath COMPARISON: 05/06/2021 FINDINGS: No pulmonary emboli. Severe emphysema. There is septal line thickening and fluid filling of the cystic airspaces in the right upper lobe with dense region of consolidation in the suprahilar region consistent with pneumonia. Is also a small region of peripheral consolidation along a band of scarring in the left upper lobe which could also represent atelectasis or pneumonia. Very small right pleural effusion. Heart size is normal. Atherosclerotic coronary artery calcific location. No pericardial effusion. Thoracic aorta is normal in caliber with no dissection. No pathologically enlarged thoracic lymphadenopathy. Likely benign 6 mm low-attenuation nodule in the right thyroid lobe. Multiple splenic calcific lesions consistent with old granulomatous disease. Couple small regions of cortical scarring at the left kidney consistent with sequela of prior infection or infarction. Visualized upper abdomen is otherwise unremarkable. Mild thoracic spondylosis. IMPRESSION: 1. No pulmonary embolism. 2. Severe emphysema with extensive airspace disease in the right upper lobe including dense consolidation in the suprahilar region consistent with pneumonia. Possible additional small region of pneumonia versus atelectasis at the peripheral left upper lobe. 3. Very small right pleural effusion. 06/18/2024: Overnight oximetry on noninvasive ventilator with 5 L bleed in. Recording duration 2 hours and 38 minutes. Basal saturation 96.6%. High saturation 99%. Low saturation 90%. Time with saturation less than or equal to 88% was 0 minutes. Oxygen desaturation index is 0. I will continue noninvasive ventilator with 5 L bleed in at night. 05/08/2023: Alpha 1 anti trypsin genotype MM, normal ??05/11/2021:? Home O2 assessment.? Rest room air saturations 85%, rest 1 L nasal cannula saturation 87%, rest 2 L nasal cannula saturation 94%, ambulation 2 L saturation 90%.? Patient requires 2 L with rest and with activity. ?05/06/21 EXAMINATION: CTA chest PE protocol ??INDICATION: SOB. ??Comparison is made to prior examination from 02/08/2017. ??FINDINGS:? Pulmonary arteries are well opacified and without intraluminal filling defects. ? No thoracic aortic dissection.? There is severe emphysema. Dependent subsegmental atelectasis.? Some endobronchial debris in the bronchus intermedius.? There is no mediastinal, hilar or axillary lymphadenopathy. ? There is no pneumothorax. ? Heart normal in size. ? There is mild coronary arterial calcification, arterial sclerosis.? Upper abdomen is unremarkable. ? There is thoracic spondylosis without osteoblastic or osteolytic lesions identified. ??IMPRESSION: ??1.? Dependent subsegmental atelectasis. ??2.? Some endobronchial debris. ??3.? Severe emphysema. ??4.? No pulmonary emboli. ?? ?07/16/2020: I have a report from PFTs at [facility]? [facility]. ??This is a pulmonary function test with pre and post-bronchodilator spirometry, plethysmography and diffusing capacity.? ?Findings: ?Spirometry: ? There is decreased maximal expiratory airflow at all lung volumes with the concave expiratory flow tracing.? The contour of the inspiratory flow tracing is normal.? The pre bronchodilator FVC is 1.47 L, 63% predicted.? The pre bronchodilator FEV1 is 0.41 L, 24% predicted.? The pre bronchodilator FEV1:? FVC ratio is 28%.? The post bronchodilator FVC is 1.86 L, representing a 27% increase.? The post bronchodilator FEV1 is 0.47 L, representing a 16% increase.? The post bronchodilator FEV1: FVC ratio is 25%.? ?Plethysmography:? Total lung capacity is 6.11 L, 154% predicted.? The functional residual capacity is 5.34 L, 216% predicted.? The residual volume is 4.64 L, 281% predicted.? ?Plethysmography:? The diffusing capacity unadjusted for hemoglobin and carboxyhemoglobin is 3.0, 21% predicted.? The diffusing capacity adjusted for alveolar volume is 1.79, 53% predicted. ?Impression: There is a very severe obstructive abnormality with significant improvement after inhaling a single dose of albuterol. The increase in residual volume is consistent with air trapping from an obstructive abnormality.? Hyperinflation is present as demonstrated by the increase in functional residual capacity and total lung capacity and is consistent with an obstructive abnormality. The diffusing capacity unadjusted for hemoglobin and carboxyhemoglobin is severely decreased and remains moderately decreased when adjusted for alveolar volume. ?There are no prior studies for comparison ? ??09/25/2003 report no raw data available ??TEST: PFT ??FVC, FEV1, GRB1% decreased. There is acute bronchodilator response. Lung volumes are increased. RAW is increased. DLCO is decreased. ??Impression: Severe obstructive ventilatory defect with acute bronchodilator response. Decreased DLCO. ?08/23/1999: Chest X ray report: ??CHEST ??Indication: Fever. ??Technique: PA and lateral views. ??The lungs are prominently hyperinflated, with flattening of the diaphragm and increased retrosternal air space, consistent with chronic obstructive pulmonary disease. ??There are some increased interstitial markings in the lungs, particularly in the right mid and lower lung field which may be chronic. One cannot exclude some interstitial pneumonitis. Correlation clinically and comparison with prior chest radiographs is recommended. No pulmonary consolidation is evident. There is no pleural effusion. No pulmonary vascular congestion or any apparent adenopathy or pneumothorax is noted. ??The cardiac and mediastinal silhouettes are unremarkable. There is mild aortic calcification. ??IMPRESSION: CHRONIC OBSTRUCTIVE PULMONARY DISEASE. ??INCREASED INTERSTITIAL MARKINGS, RIGHT MID AND LOWER ??LUNG BENAVIDEZ ? RECOMMEND COMPARISON WITH PRIOR ??CHEST RADIOGRAPHS AND CLINICAL CORRELATION TO ??DIFFERENTIATE ACUTE FROM CHRONIC. Review of Systems Constitutional: Constitutional: Reports no additional constitutional complaints Eyes: Eyes: Reports no additional eye complaints ENT: Reports system reviewed and no additional complaints, except as documented Cardiovascular: Cardiovascular: Reports no additional cardiovascular complaints Respiratory: Respiratory: Reports no additional respiratory complaints Gastrointestinal: Gastrointestinal: Reports no additional gastrointestinal complaints Musculoskeletal: Musculoskeletal: Reports no additional musculoskeletal complaints Neurologic: Reports system reviewed and no additional complaints, except as documented Psychiatric: Psychiatric: Reports no additional psychiatric complaints Endocrine: Endocrine: Reports no additional endocrine complaints Hematologic/Lymphatic: Hematologic/Lymphatic: Reports no additional hematologic/lymphatic complaints Allergic/Immunologic: Allergic/Immunologic: Reports no additional allergic/immunologic complaints Exam Const: General: cooperative, comfortable and no acute distress Orientation/consciousness: oriented to person, oriented to place and oriented to time Other: Patient is extremely thin. HENMT: Head: normal to inspection Ears: hearing grossly normal bilaterally Eyes: General: appearance normal, both eyes and all related structures Neck: Neck: normal visual inspection Chest: Chest palpation & inspection: normal inspection of the chest Resp: Effort & Inspection: normal respiratory effort and able to speak in complete sentences Auscultation: no crackles, no rales, no rhonchi, no wheezes and diminished lung sounds Other: Diminished lung sounds Throughout, no wheezes, Cardio: Jugular venous distension: no JVD GI: Inspection: normal to inspection Skin: General skin exam: normal color Neuro: General: oriented to person, oriented to place and oriented to time Extrem: General: normal to inspection and no edema Psych: Appearance: grossly normal Objective Data Vital Signs Vital Signs: Vital Signs - 24 hr 12/12/24 12:00 12/12/24 13:27 12/12/24 13:33 Temperature Pulse Rate 80 76 74 Respiratory Rate 18 18 Blood Pressure Pulse Oximetry Oxygen Delivery Oxygen Flow Rate 12/12/24 14:00 12/12/24 16:00 12/12/24 20:00 Temperature 36.2 C L Pulse Rate 76 86 Respiratory Rate 16 Blood Pressure 133/55 L Pulse Oximetry 94 95 Oxygen Delivery Nasal Cannula Oxygen Flow Rate 2 12/12/24 20:10 12/12/24 20:15 12/12/24 21:20 Temperature 36.2 C L Pulse Rate 80 81 Respiratory Rate 18 Blood Pressure 168/76 H Pulse Oximetry 95 93 Oxygen Delivery Nasal Cannula Oxygen Flow Rate 1 12/12/24 21:25 12/12/24 22:15 12/13/24 00:00 Temperature Pulse Rate 78 70 69 Respiratory Rate 18 Blood Pressure Pulse Oximetry 92 Oxygen Delivery Oxygen Flow Rate 12/13/24 04:00 12/13/24 04:25 12/13/24 04:51 Temperature 36.2 C L Pulse Rate 62 73 72 Respiratory Rate 16 Blood Pressure 119/57 L Pulse Oximetry 94 99 Oxygen Delivery Oxygen Flow Rate 12/13/24 07:08 12/13/24 07:40 12/13/24 07:40 Temperature Pulse Rate 70 Respiratory Rate 18 Blood Pressure Pulse Oximetry 96 98 Oxygen Delivery CPAP Nasal Cannula Oxygen Flow Rate 4 1 12/13/24 07:53 Temperature Pulse Rate 70 Respiratory Rate 18 Blood Pressure Pulse Oximetry Oxygen Delivery Oxygen Flow Rate Intake/Output Intake/Output: Intake & Output 12/10/24 12/11/24 12/12/24 12/13/24 23:59 23:59 23:59 23:59 Intake Total 1816 2020 1920 168 Output Total 500 300 500 Balance 1316 1720 1420 168 Meds/Results Medications: Active Medications Generic Name Dose Route Start Last Admin Trade Name Freq PRN Reason Stop Dose Admin Acetaminophen 650 mg 12/09/24 16:10 Acetaminophen 325 Mg Tablet PO Q4H PRN Mild Pain (1-3) or Fever Acetylcysteine 200 mg 12/11/24 20:00 12/13/24 07:40 Acetylcysteine 20% Inhal Soln 800 Mg/4 Ml Vial INHALATION 200 mg Q6HRT DONNA Administration Albuterol 2.5 mg 12/11/24 17:05 Albuterol Sulfate Neb 2.5 Mg/3 Ml Inh INHALATION Q6HRT PRN Wheezing Albuterol/Ipratropium 3 ml 12/11/24 20:00 12/13/24 07:40 Ipratropium 0.5 Mg/Albuterol Sulfate 2.5 Mg Ampul.Neb 3 Ml INHALATION 3 ml Q6HRT DONNA Administration Amlodipine Besylate 10 mg 12/10/24 09:00 12/13/24 09:11 Amlodipine Besylate 10 Mg Tablet BY MOUTH 10 mg DAILY DONNA Administration Artificial Tears 1 drop 12/10/24 08:48 12/12/24 21:23 Artificial Tears Ophth Soln 15 Ml Bottle EACH EYE 1 drop QID PRN Administration Dry Eye(s) Enoxaparin Sodium 40 mg 12/10/24 09:00 12/13/24 09:11 Enoxaparin 40 Mg/0.4 Ml Syringe SUB-Q 40 mg DAILY DONNA Administration Guaifenesin 1,200 mg 12/09/24 21:00 12/13/24 09:11 Guaifenesin 12 Hr 600 Mg Tabcr PO 1,200 mg Q12HR DONNA Administration Hydrocortisone Sodium Succinate 25 mg 12/12/24 12:00 12/13/24 06:23 Hydrocortisone Sodium Succinate 100 Mg/2 Ml Vial IV PUSH 25 mg Q6HR DONNA Administration Vancomycin HCl 750 mg in 250 mls @ 250 mls/hr 12/12/24 19:00 12/12/24 18:02 Vancomycin 750 Mg/Ns 250 Ml IVPB 150 mls/hr Q18H DONNA Administration Levofloxacin/Dextrose 750 mg in 150 mls @ 100 mls/hr 12/12/24 09:30 12/13/24 09:13 Levaquin 750 Mg/D5w 150 Ml IVPB 100 mls/hr DAILY DONNA Administration Mupirocin 1 applic 12/12/24 09:00 12/13/24 09:14 Mupirocin 2% Oint 22 Gm Tube EACH NARE 12/16/24 21:01 1 applic Q12HR DONNA Administration Perflutren Lipid Microsphere 0 ml 12/11/24 16:55 Perflutren Lipid Microspheres 1.5 Ml Vial Diluted To 10 Ml Total Volume IV PUSH 12/14/24 16:55 ONCE PRN adequate visualization Protocol Radiology Results: ITS Impressions Chest CTA 12/09/24 14:51 IMPRESSION: 1. No pulmonary embolism. 2. Severe emphysema with extensive airspace disease in the right upper lobe including dense consolidation in the suprahilar region consistent with pneumonia. Possible additional small region of pneumonia versus atelectasis at the peripheral left upper lobe. 3. Very small right pleural effusion. Chest X-Ray 12/12/24 06:29 Impression: 1: No significant change compared with 12/09/2024 allowing for technique. Labs Labs: Laboratory Results - last 24 hr 12/13/24 05:54 WBC 6.8 RBC 3.95 L Hgb 11.5 L Hct 37.3 MCV 94.4 MCH 29.1 MCHC 30.8 L RDW 13.2 Plt Count 276 MPV 9.2 Immature Gran % (Auto) 0.6 H Neut % (Auto) 81.9 H Lymph % (Auto) 9.4 L [place] % (Auto) 7.4 Eos % (Auto) 0.6 Baso % (Auto) 0.1 L Lymph # (Auto) 0.64 L [place] # (Auto) 0.5 Eos # (Auto) 0.0 Baso # (Auto) 0.0 Abs Immat Gran (auto) 0.04 H Absolute Neuts (auto) 5.6 Absolute Nucleated RBC 0.000 Nucleated RBC % 0.0 Sodium 134 L Potassium 3.9 Chloride 93 L Carbon Dioxide 39 H Anion Gap 2 L BUN 17 Creatinine 0.57 L Estim Creat Clear Calc 48 Estimated GFR > 60 Glucose 85 Calcium 8.7 Magnesium 2.3 Total Bilirubin 0.2 AST 22 ALT 12 Alkaline Phosphatase 60 Total Protein 5.5 L Albumin 2.9 L
[2024-12-13] MEDS: VANCOMYCIN HCL 1,000 MG in SODIUM CHLORIDE 0.9% IV 250 ML 250 MG IVPB (13:27)
--- NOTE | 2024-12-13 15:34 | P.PNIM_ITS ---
Progress Note: A&P Assessment and Plan (1) COPD (chronic obstructive pulmonary disease): Code(s): J44.9 - Chronic obstructive pulmonary disease, unspecified Status: Acute Assessment and Plan: COPD exacerbation Rocephin and Zithromax DuoNebs Solu-Medrol Blood cultures pending 12/10/24: * Continue Rocephin and azithromycin, DuoNebs and Solu-Medrol as well as Incruse Ellipta * Await results of blood cultures * Patient at baseline 2 L supplemental oxygen. 12/11/24: * Continue Rocephin and azithromycin, DuoNebs and Solu-Medrol as well as Incruse Ellipta * Blood cultures no grow to date. * Patient at baseline 2 L supplemental oxygen. * Intravenous Therapy Nurse referral, she is a patient of Dr. Díaz. * Decrease Methylprednisolone 60 mg ivp q12. 12/12/24: * Continue all treatments. * Abx were changed today to po Levaquin. * Being followed by Dr. Tate. (2) Chronic respiratory failure with hypoxia and hypercapnia: Code(s): J96.11 - Chronic respiratory failure with hypoxia; J96.12 - Chronic respiratory failure with hypercapnia Status: Acute Assessment and Plan: Acute on chronic Currently on home O2 oxygen settings 12/10/24: * See 1. Above. * No new increase in oxygen requirement. 12/11/24: * Unchanged 12/12/24: * Continue supplemental oxygen. (3) Other abnormalities of gait and mobility: Code(s): R26.89 - Other abnormalities of gait and mobility Status: Acute Assessment and Plan: 12/10/24: * Patient with complaints of weakness today. States she has not been out of bed since she has been here and does not feel that she could walk independently as she normally does at baseline. * PT OT evaluation ordered for discharge recommendations. Suspect will discharge in next 1-2 days * Fall precautions 12/11/24: * PT/OT * Fall precautions. 12/12/24: * Family would like pt to go to a rehab/snf, but she refuses at discharge wanting to go home instead. (4) Anxiety disorder, unspecified: Code(s): F41.9 - Anxiety disorder, unspecified Status: Chronic Assessment and Plan: Not on medication 12/10/24: * Appears stable without any p.r.n. needs for control (5) HTN (hypertension): Code(s): I10 - Essential (primary) hypertension Status: Chronic Assessment and Plan: Continue Norvasc 12/10/24: * Currently well controlled. Continue home medications of amlodipine. * Monitor and trend labs and vital signs. 12/12/24: * Stable 1-teens - 130s/50s-70s. * Continue current treatment. (6) Dry eye: Code(s): H04.129 - Dry eye syndrome of unspecified lacrimal gland Status: Chronic Assessment and Plan: 12/10/2024: * Artificial tears ordered Plan This pt was examined today sitting at the bedside in chair in no acute distress. She remains on supplemental oxygen at this time. She is being followed by Pulmonology and discussed and being treated with oralLevaquin. Repeat CXR on 12/12 did not shows no interval change. patient is not requiring any oxygen at rest however with exertion patient is requiring 1L, patient had apnea link last night with 4L,and her saturation good, will repeat apnea link with 2L tonight, her cardio showed normal LV function with grad I diastolic dysfunction, She has no new complaints today and no new symptoms. will CPM and monitor. Subjective Date/time seen: 12/13/24 15:34 Interval history: This pt was examined today sitting at the bedside in chair in no acute distress. She remains on supplemental oxygen at this time. She is being followed by Pulmonology and discussed and being treated with oralLevaquin. Repeat CXR on 12/12 did not shows no interval change. patient is not requiring any oxygen at rest however with exertion patient is requiring 1L, patient had apnea link last night with 4L,and her saturation good, will repeat apnea link with 2L tonight, her cardio showed normal LV function with grad I diastolic dysfunction, She has no new complaints today and no new symptoms. will CPM and monitor. Review of Systems Review of Systems: 12 systems were reviewed and are negativ e except for as per HPI. All systems reviewed & are unremarkable except as noted in HPI and below Exam Narrative: Appears chronically ill Patient is comfortable, NAD HEENT: eyes are clear and none icteric LUNGS: Bilateral poor air entry HEART: RR S1S2 ABD: BS+, Soft and nontender Lower extremities: no edema SKIN: nonjaundiced Neuro: grossly intact. Objective Data Vital Signs Vital Signs: Vital Signs - 24 hr 12/12/24 16:00 12/12/24 20:00 12/12/24 20:10 Temperature Pulse Rate 86 80 Respiratory Rate Blood Pressure Pulse Oximetry 95 Oxygen Delivery Nasal Cannula Oxygen Flow Rate 2 12/12/24 20:15 12/12/24 21:20 12/12/24 21:25 Temperature 36.2 C L Pulse Rate 81 78 Respiratory Rate 18 18 Blood Pressure 168/76 H Pulse Oximetry 95 93 Oxygen Delivery Nasal Cannula Oxygen Flow Rate 1 12/12/24 22:15 12/13/24 00:00 12/13/24 04:00 Temperature Pulse Rate 70 69 62 Respiratory Rate Blood Pressure Pulse Oximetry 92 Oxygen Delivery Oxygen Flow Rate 12/13/24 04:25 12/13/24 04:51 12/13/24 07:08 Temperature 36.2 C L Pulse Rate 73 72 Respiratory Rate 16 Blood Pressure 119/57 L Pulse Oximetry 94 99 96 Oxygen Delivery CPAP Oxygen Flow Rate 4 12/13/24 07:40 12/13/24 07:40 12/13/24 07:53 Temperature Pulse Rate 70 70 Respiratory Rate 18 18 Blood Pressure Pulse Oximetry 98 Oxygen Delivery Nasal Cannula Oxygen Flow Rate 1 12/13/24 08:00 12/13/24 08:15 12/13/24 11:48 Temperature Pulse Rate 73 79 78 Respiratory Rate 18 18 Blood Pressure Pulse Oximetry 98 Oxygen Delivery Nasal Cannula Oxygen Flow Rate 1 12/13/24 11:58 12/13/24 14:00 Temperature 36.0 C L Pulse Rate 79 78 Respiratory Rate 18 18 Blood Pressure 153/68 H Pulse Oximetry 100 Oxygen Delivery Oxygen Flow Rate Intake/Output Intake/Output: Intake & Output 12/10/24 12/11/24 12/12/24 12/13/24 23:59 23:59 23:59 23:59 Intake Total 1816 2020 1920 528 Output Total 500 300 500 Balance 1316 1720 1420 528 Meds/Results Medications: Active Medications Generic Name Dose Route Start Last Admin Trade Name Freq PRN Reason Stop Dose Admin Acetaminophen 650 mg 12/09/24 16:10 Acetaminophen 325 Mg Tablet PO Q4H PRN Mild Pain (1-3) or Fever Acetylcysteine 200 mg 12/13/24 12:00 12/13/24 11:47 Acetylcysteine 20% Inhal Soln 800 Mg/4 Ml Vial INHALATION 200 mg [id number] DONNA Administration Albuterol 2.5 mg 12/11/24 17:05 Albuterol Sulfate Neb 2.5 Mg/3 Ml Inh INHALATION Q6HRT PRN Wheezing Albuterol/Ipratropium 3 ml 12/13/24 12:00 12/13/24 11:47 Ipratropium 0.5 Mg/Albuterol Sulfate 2.5 Mg Ampul.Neb 3 Ml INHALATION 3 ml [id number] DONNA Administration Amlodipine Besylate 10 mg 12/10/24 09:00 12/13/24 09:11 Amlodipine Besylate 10 Mg Tablet BY MOUTH 10 mg DAILY DONNA Administration Artificial Tears 1 drop 12/10/24 08:48 12/12/24 21:23 Artificial Tears Ophth Soln 15 Ml Bottle EACH EYE 1 drop QID PRN Administration Dry Eye(s) Enoxaparin Sodium 40 mg 12/10/24 09:00 12/13/24 09:11 Enoxaparin 40 Mg/0.4 Ml Syringe SUB-Q 40 mg DAILY DONNA Administration Guaifenesin 1,200 mg 12/09/24 21:00 12/13/24 09:11 Guaifenesin 12 Hr 600 Mg Tabcr PO 1,200 mg Q12HR DONNA Administration Levofloxacin/Dextrose 750 mg in 150 mls @ 100 mls/hr 12/15/24 09:00 Levaquin 750 Mg/D5w 150 Ml IVPB 12/21/24 10:29 Q48HR DONNA Vancomycin HCl 1,000 mg/ 250 mls @ 250 mls/hr 12/13/24 14:00 12/13/24 13:27 Sodium Chloride IVPB 250 mls/hr Q12H DONNA Administration Mupirocin 1 applic 12/12/24 09:00 12/13/24 09:14 Mupirocin 2% Oint 22 Gm Tube EACH NARE 12/16/24 21:01 1 applic Q12HR DONNA Administration Perflutren Lipid Microsphere 0 ml 12/11/24 16:55 Perflutren Lipid Microspheres 1.5 Ml Vial Diluted To 10 Ml Total Volume IV PUSH 12/14/24 16:55 ONCE PRN adequate visualization Protocol Radiology Results: ITS Impressions Chest CTA 12/09/24 14:51 IMPRESSION: 1. No pulmonary embolism. 2. Severe emphysema with extensive airspace disease in the right upper lobe including dense consolidation in the suprahilar region consistent with pneumonia. Possible additional small region of pneumonia versus atelectasis at the peripheral left upper lobe. 3. Very small right pleural effusion. Chest X-Ray 12/12/24 06:29 Impression: 1: No significant change compared with 12/09/2024 allowing for technique. Labs Labs: Laboratory Results - last 24 hr 12/12/24 12/13/24 12/13/24 04:50 05:54 11:54 WBC 6.8 RBC 3.95 L Hgb 11.5 L Hct 37.3 MCV 94.4 MCH 29.1 MCHC 30.8 L RDW 13.2 Plt Count 276 MPV 9.2 Immature Gran % (Auto) 0.6 H Neut % (Auto) 81.9 H Lymph % (Auto) 9.4 L [place] % (Auto) 7.4 Eos % (Auto) 0.6 Baso % (Auto) 0.1 L Lymph # (Auto) 0.64 L [place] # (Auto) 0.5 Eos # (Auto) 0.0 Baso # (Auto) 0.0 Abs Immat Gran (auto) 0.04 H Absolute Neuts (auto) 5.6 Absolute Nucleated RBC 0.000 Nucleated RBC % 0.0 Sodium 134 L Potassium 3.9 Chloride 93 L Carbon Dioxide 39 H Anion Gap 2 L BUN 17 Creatinine 0.57 L Estim Creat Clear Calc 48 Estimated GFR > 60 Glucose 85 Calcium 8.7 Magnesium 2.3 Total Bilirubin 0.2 AST 22 ALT 12 Alkaline Phosphatase 60 Total Protein 5.5 L Albumin 2.9 L Vancomycin Trough < 5.0 L M.pneumoniae IgM Titer <770 Quality VTE Prophylaxis VTE prophylaxis: pharmacologic ordered
[2024-12-14] VITALS (14 sets, daily range): BP systolic 116–140; BP diastolic 58–77; PULSE 66–85; RESP 16–24; TEMP 36.4–36.9; O2SAT 90–98
[2024-12-14] MEDS: VANCOMYCIN HCL 1,000 MG in SODIUM CHLORIDE 0.9% IV 250 ML 175 MG IVPB ×2 (01:00→13:12)
[2024-12-14 05:49] LABS: Hematocrit 35.2 % (37.0-47.0); Hemoglobin 10.7 g/dL (12.0-15.0); Immature Granulocyte Percent A 1.2 % (0-0.5); Lymphocytes Absolute Auto 1.27 K/mm3 (0.9-3.2); Mean Corpuscular HGB Conc 30.4 g/dl (32-36); Mean Corpuscular Hemoglobin 28.9 pg (26-34); Mean Corpuscular Volume 95.1 fl (80-100); Nucleated Red Blood Cells Absolute Auto 0.000 K/mm3 (0.0-0.012); Nucleated Red Blood Cells Perc 0.0 % (0.0-0.2); Platelet Count Result 226 k/mm3 (150-375); Red Blood Count 3.70 M/mm3 (4.2-5.4); White Blood Count 6.1 K/mm3 (4.5-10.0)
[2024-12-14 06:10] LABS: Alanine Aminotransferase 13 U/L (6-35); Albumin Level 2.6 g/dL (3.5-5.1); Alkaline Phosphatase 54 U/L (38-126); Anion Gap 0 mmol/L (4-12); Aspartate Amino Transferase 22 U/L (14-36); Bilirubin,Total 0.1 mg/dL (0.2-1.3); Blood Urea Nitrogen 15 mg/dL (7-17); Calcium 8.1 mg/dL (8.4-10.2); Carbon Dioxide 38 mmol/L (22-30); Chloride 95 mmol/L (98-107); Estimated CRCL calculation 53 ml/min; Estimated Glomerular Filt Rate > 60; Glucose 74 mg/dL (65-110); Magnesium 2.1 mg/dL (1.6-2.3); Potassium 3.4 mmol/L (3.4-5.0); Sodium 133 mmol/L (137-145); Total Protein 5.0 g/dL (6.3-8.2)
[2024-12-14] MEDS: ACETYLCYSTEINE 20% INHAL SOLN 800 MG/4 ML VIAL 200 MG INHALATION ×4 (07:25→21:11)
[2024-12-14] MEDS: IPRATROPIUM 0.5 MG/ALBUTEROL SULFATE 2.5 MG AMPUL.NEB 3 ML INHALATION ×4 (07:25→21:11)
[2024-12-14] MEDS: ENOXAPARIN 40 MG/0.4 ML SYRINGE SUB-Q (08:01)
[2024-12-14] MEDS: MUPIROCIN 2% OINT 22 GM TUBE 1 APPLIC EACH NARE ×2 (08:02→21:05)
[2024-12-14] MEDS: POTASSIUM CHLORIDE 20 MEQ PACKET (FOR LIQUID) 40 MEQ PO (09:05)
[2024-12-14] MEDS: DOCUSATE SODIUM 100 MG CAPSULE PO (10:06)
--- NOTE | 2024-12-14 13:18 | P.PNIM_ITS ---
Progress Note: A&P Assessment and Plan (1) COPD (chronic obstructive pulmonary disease): Code(s): J44.9 - Chronic obstructive pulmonary disease, unspecified Status: Acute Assessment and Plan: COPD exacerbation Rocephin and Zithromax DuoNebs Solu-Medrol Blood cultures pending 12/10/24: * Continue Rocephin and azithromycin, DuoNebs and Solu-Medrol as well as Incruse Ellipta * Await results of blood cultures * Patient at baseline 2 L supplemental oxygen. 12/11/24: * Continue Rocephin and azithromycin, DuoNebs and Solu-Medrol as well as Incruse Ellipta * Blood cultures no grow to date. * Patient at baseline 2 L supplemental oxygen. * Continuing Education Director referral, she is a patient of Dr. Díaz. * Decrease Methylprednisolone 60 mg ivp q12. 12/12/24: * Continue all treatments. * Abx were changed today to po Levaquin. * Being followed by Dr. Ttae. (2) Chronic respiratory failure with hypoxia and hypercapnia: Code(s): J96.11 - Chronic respiratory failure with hypoxia; J96.12 - Chronic respiratory failure with hypercapnia Status: Acute Assessment and Plan: Acute on chronic Currently on home O2 oxygen settings 12/10/24: * See 1. Above. * No new increase in oxygen requirement. 12/11/24: * Unchanged 12/12/24: * Continue supplemental oxygen. (3) Other abnormalities of gait and mobility: Code(s): R26.89 - Other abnormalities of gait and mobility Status: Acute Assessment and Plan: 12/10/24: * Patient with complaints of weakness today. States she has not been out of bed since she has been here and does not feel that she could walk independently as she normally does at baseline. * PT OT evaluation ordered for discharge recommendations. Suspect will discharge in next 1-2 days * Fall precautions 12/11/24: * PT/OT * Fall precautions. 12/12/24: * Family would like pt to go to a rehab/snf, but she refuses at discharge wanting to go home instead. (4) Anxiety disorder, unspecified: Code(s): F41.9 - Anxiety disorder, unspecified Status: Chronic Assessment and Plan: Not on medication 12/10/24: * Appears stable without any p.r.n. needs for control (5) HTN (hypertension): Code(s): I10 - Essential (primary) hypertension Status: Chronic Assessment and Plan: Continue Norvasc 12/10/24: * Currently well controlled. Continue home medications of amlodipine. * Monitor and trend labs and vital signs. 12/12/24: * Stable 1-teens - 130s/50s-70s. * Continue current treatment. (6) Dry eye: Code(s): H04.129 - Dry eye syndrome of unspecified lacrimal gland Status: Chronic Assessment and Plan: 12/10/2024: * Artificial tears ordered Plan This pt was examined today sitting at the bedside in chair in no acute distress. She remains on supplemental oxygen at this time. She is being followed by Pulmonology and discussed and being treated with oralLevaquin. Repeat CXR on 12/12 did not shows no interval change. patient is not requiring any oxygen at rest however with exertion patient is requiring 1L, patient had apnea link last night with 4L,and her saturation good, last night patient had apnea link with 2L, the results were reviewed by Dr. Queen results showed hypoxia and recommended to repeat apnea link tonight with 4L, her cardio ECHO showed normal LV function with grad I diastolic dysfunction, She has no new complaints today othere than no BM for few days, which is normal for the patient, will give miralax, and no new symptoms. will CPM and monitor. plan is to discharge patient on Monday. Subjective Date/time seen: 12/14/24 13:18 Interval history: This pt was examined today sitting at the bedside in chair in no acute distress. She remains on supplemental oxygen at this time. She is being followed by Pulmonology and discussed and being treated with oralLevaquin. Repeat CXR on 12/12 did not shows no interval change. patient is not requiring any oxygen at rest however with exertion patient is requiring 1L, patient had apnea link last night with 4L,and her saturation good, last night patient had apnea link with 2L, the results were reviewed by Dr. Queen results showed hypoxia and recommended to repeat apnea link tonight with 4L, her cardio ECHO showed normal LV function with grad I diastolic dysfunction, She has no new complaints today othere than no BM for few days, which is normal for the patient, will give miralax, and no new symptoms. will CPM and monitor. will discharge on Monday. Review of Systems Review of Systems: 12 systems were reviewed and are negativ e except for as per HPI. All systems reviewed & are unremarkable except as noted in HPI and below Exam Narrative: Appears chronically ill Patient is comfortable, NAD HEENT: eyes are clear and none icteric LUNGS: Bilateral poor air entry HEART: RR S1S2 ABD: BS+, Soft and nontender Lower extremities: no edema SKIN: nonjaundiced Neuro: grossly intact. Objective Data Vital Signs Vital Signs: Vital Signs - 24 hr 12/13/24 14:00 12/13/24 15:46 12/13/24 15:59 Temperature 36.0 C L Pulse Rate 78 80 80 Respiratory Rate 18 20 20 Blood Pressure 153/68 H Pulse Oximetry 100 Oxygen Delivery Oxygen Flow Rate 12/13/24 20:00 12/13/24 20:13 12/13/24 20:14 Temperature Pulse Rate 83 Respiratory Rate 20 Blood Pressure Pulse Oximetry 94 94 Oxygen Delivery Nasal Cannula Nasal Cannula Oxygen Flow Rate 1 1 12/13/24 21:00 12/13/24 22:25 12/14/24 04:45 Temperature 36.4 C 36.4 C Pulse Rate 85 66 Respiratory Rate 20 20 Blood Pressure 168/89 H 129/58 L Pulse Oximetry 94 94 95 Oxygen Delivery CPAP Oxygen Flow Rate 2 12/14/24 07:29 12/14/24 07:29 12/14/24 07:42 Temperature Pulse Rate 76 68 Respiratory Rate 24 H 20 Blood Pressure Pulse Oximetry 90 Oxygen Delivery Nasal Cannula Oxygen Flow Rate 1 12/14/24 08:00 12/14/24 11:24 12/14/24 11:35 Temperature Pulse Rate 84 76 Respiratory Rate 16 16 Blood Pressure Pulse Oximetry 98 Oxygen Delivery Nasal Cannula Oxygen Flow Rate 1 Intake/Output Intake/Output: Intake & Output 12/11/24 12/12/24 12/13/24 12/14/24 23:59 23:59 23:59 23:59 Intake Total 2019 1920 1518 790 Output Total 300 500 Balance 1720 1420 1518 790 Meds/Results Medications: Active Medications Generic Name Dose Route Start Last Admin Trade Name Freq PRN Reason Stop Dose Admin Acetaminophen 650 mg 12/09/24 16:10 Acetaminophen 325 Mg Tablet PO Q4H PRN Mild Pain (1-3) or Fever Acetylcysteine 200 mg 12/13/24 12:00 12/14/24 11:24 Acetylcysteine 20% Inhal Soln 800 Mg/4 Ml Vial INHALATION 200 mg [id number] DONNA Administration Albuterol 2.5 mg 12/11/24 17:05 Albuterol Sulfate Neb 2.5 Mg/3 Ml Inh INHALATION Q6HRT PRN Wheezing Albuterol/Ipratropium 3 ml 12/13/24 12:00 12/14/24 11:24 Ipratropium 0.5 Mg/Albuterol Sulfate 2.5 Mg Ampul.Neb 3 Ml INHALATION 3 ml [id number] DONNA Administration Amlodipine Besylate 10 mg 12/10/24 09:00 12/14/24 08:01 Amlodipine Besylate 10 Mg Tablet BY MOUTH 10 mg DAILY DONNA Administration Artificial Tears 1 drop 12/10/24 08:48 12/12/24 21:23 Artificial Tears Ophth Soln 15 Ml Bottle EACH EYE 1 drop QID PRN Administration Dry Eye(s) Docusate Sodium 100 mg 12/14/24 09:47 12/14/24 10:06 Docusate Sodium 100 Mg Capsule PO 100 mg Q12H PRN Administration Constipation Enoxaparin Sodium 40 mg 12/10/24 09:00 12/14/24 08:01 Enoxaparin 40 Mg/0.4 Ml Syringe SUB-Q 40 mg DAILY DONNA Administration Guaifenesin 1,200 mg 12/09/24 21:00 12/14/24 08:03 Guaifenesin 12 Hr 600 Mg Tabcr PO Not Given Q12HR DONNA Levofloxacin/Dextrose 750 mg in 150 mls @ 100 mls/hr 12/15/24 09:00 Levaquin 750 Mg/D5w 150 Ml IVPB 12/21/24 10:29 Q48HR DONNA Vancomycin HCl 1,000 mg/ 250 mls @ 250 mls/hr 12/13/24 14:00 12/14/24 13:12 Sodium Chloride IVPB 12/21/24 23:59 175 mls/hr Q12H DONNA Administration Mupirocin 1 applic 12/12/24 09:00 12/14/24 08:02 Mupirocin 2% Oint 22 Gm Tube EACH NARE 12/16/24 21:01 1 applic Q12HR DONNA Administration Perflutren Lipid Microsphere 0 ml 12/11/24 16:55 Perflutren Lipid Microspheres 1.5 Ml Vial Diluted To 10 Ml Total Volume IV PUSH 12/14/24 16:55 ONCE PRN adequate visualization Protocol Radiology Results: ITS Impressions Chest CTA 12/09/24 14:51 IMPRESSION: 1. No pulmonary embolism. 2. Severe emphysema with extensive airspace disease in the right upper lobe including dense consolidation in the suprahilar region consistent with pneumonia. Possible additional small region of pneumonia versus atelectasis at the peripheral left upper lobe. 3. Very small right pleural effusion. Chest X-Ray 12/12/24 06:29 Impression: 1: No significant change compared with 12/09/2024 allowing for technique. Labs Labs: Laboratory Results - last 24 hr 12/11/24 12/12/24 12/14/24 17:11 04:50 05:05 WBC 6.1 RBC 3.70 L Hgb 10.7 L Hct 35.2 L MCV 95.1 MCH 28.9 MCHC 30.4 L RDW 13.3 Plt Count 226 MPV 9.0 Immature Gran % (Auto) 1.2 H Neut % (Auto) 64.2 Lymph % (Auto) 20.9 [place] % (Auto) 8.7 H Eos % (Auto) 4.8 H Baso % (Auto) 0.2 Lymph # (Auto) 1.27 [place] # (Auto) 0.5 Eos # (Auto) 0.3 Baso # (Auto) 0.0 Abs Immat Gran (auto) 0.07 H Absolute Neuts (auto) 3.9 Absolute Nucleated RBC 0.000 Nucleated RBC % 0.0 Sodium 133 L Potassium 3.4 Chloride 95 L Carbon Dioxide 38 H Anion Gap 0 L BUN 15 Creatinine 0.51 L Estim Creat Clear Calc 53 Estimated GFR > 60 Glucose 74 Calcium 8.1 L Magnesium 2.1 Total Bilirubin 0.1 L AST 22 ALT 13 Alkaline Phosphatase 54 Total Protein 5.0 L Albumin 2.6 L Chlamy pneumoniae PCR Not detected Adenovirus (PCR) Not detected B. pertussis DNA (PCR) Not detected B.parapertussis DNA PCR Not detected Coronavirus OC43 (PCR) Not detected Coronavirus HKU1 (PCR) Not detected Coronavirus 229E (PCR) Not detected Coronavirus NL63 (PCR) Not detected Human Metapneumovir PCR Not detected Influenza A (H1) PCR Not detected Influ A (H1/09) PCR Not detected Influenza A (H3) PCR Not detected Influenza Type A (PCR) Not detected Influenza Type B (PCR) Not detected M.pneumoniae IgM Titer <770 M. pneumoniae (PCR) Not detected Parainfluenza 1 (PCR) Not detected Parainfluenza 2 (PCR) Not detected Parainfluenza 3 (PCR) Not detected Parainfluenza 4 (PCR) Not detected RSV (PCR) Not detected Entero/Rhino (PCR) Not detected SARS-CoV-2 (PCR) Not detected Quality VTE Prophylaxis VTE prophylaxis: pharmacologic ordered
[2024-12-15] VITALS (13 sets, daily range): BP systolic 132–153; BP diastolic 62–83; PULSE 67–81; RESP 12–22; TEMP 36.1–36.7; O2SAT 92–100
[2024-12-15] MEDS: VANCOMYCIN 1,250 MG/NS 250 ML 1,250 MG/250 ML BAG 166.67 MG IVPB ×2 (01:48→14:53)
[2024-12-15 06:33] LABS: Hematocrit 33.4 % (37.0-47.0); Hemoglobin 10.3 g/dL (12.0-15.0); Immature Granulocyte Percent A 1.4 % (0-0.5); Lymphocytes Absolute Auto 1.04 K/mm3 (0.9-3.2); Mean Corpuscular HGB Conc 30.8 g/dl (32-36); Mean Corpuscular Hemoglobin 29.1 pg (26-34); Mean Corpuscular Volume 94.4 fl (80-100); Nucleated Red Blood Cells Absolute Auto 0.000 K/mm3 (0.0-0.012); Nucleated Red Blood Cells Perc 0.0 % (0.0-0.2); Platelet Count Result 245 k/mm3 (150-375); Red Blood Count 3.54 M/mm3 (4.2-5.4); White Blood Count 5.8 K/mm3 (4.5-10.0)
[2024-12-15 06:57] LABS: Alanine Aminotransferase 17 U/L (6-35); Albumin Level 2.6 g/dL (3.5-5.1); Alkaline Phosphatase 52 U/L (38-126); Anion Gap 0 mmol/L (4-12); Aspartate Amino Transferase 27 U/L (14-36); Bilirubin,Total 0.1 mg/dL (0.2-1.3); Blood Urea Nitrogen 11 mg/dL (7-17); Calcium 8.1 mg/dL (8.4-10.2); Carbon Dioxide 37 mmol/L (22-30); Chloride 97 mmol/L (98-107); Estimated CRCL calculation 60 ml/min; Estimated Glomerular Filt Rate > 60; Glucose 74 mg/dL (65-110); Magnesium 2.1 mg/dL (1.6-2.3); Potassium 4.0 mmol/L (3.4-5.0); Sodium 134 mmol/L (137-145); Total Protein 5.0 g/dL (6.3-8.2)
[2024-12-15] MEDS: ACETYLCYSTEINE 20% INHAL SOLN 800 MG/4 ML VIAL 200 MG INHALATION ×3 (07:40→20:03)
[2024-12-15] MEDS: IPRATROPIUM 0.5 MG/ALBUTEROL SULFATE 2.5 MG AMPUL.NEB 3 ML INHALATION ×4 (07:41→20:02)
[2024-12-15] MEDS: levoFLOXacin 750 MG/D5W 150 ML 750 MG/150 ML BAG 100 MG IVPB (09:12)
[2024-12-15] MEDS: ENOXAPARIN 40 MG/0.4 ML SYRINGE SUB-Q (09:13)
[2024-12-15] MEDS: guaiFENesin 12 HR 600 MG TABCR 1200 MG PO (09:13)
[2024-12-15] MEDS: MUPIROCIN 2% OINT 22 GM TUBE 1 APPLIC EACH NARE ×2 (09:16→21:42)
--- NOTE | 2024-12-15 11:53 | P.PNIM_ITS ---
Progress Note: A&P Assessment and Plan (1) COPD (chronic obstructive pulmonary disease): Code(s): J44.9 - Chronic obstructive pulmonary disease, unspecified Status: Acute Assessment and Plan: COPD exacerbation Rocephin and Zithromax DuoNebs Solu-Medrol Blood cultures pending 12/10/24: * Continue Rocephin and azithromycin, DuoNebs and Solu-Medrol as well as Incruse Ellipta * Await results of blood cultures * Patient at baseline 2 L supplemental oxygen. 12/11/24: * Continue Rocephin and azithromycin, DuoNebs and Solu-Medrol as well as Incruse Ellipta * Blood cultures no grow to date. * Patient at baseline 2 L supplemental oxygen. * Manager Of Recruiting referral, she is a patient of Dr. Díaz. * Decrease Methylprednisolone 60 mg ivp q12. 12/12/24: * Continue all treatments. * Abx were changed today to po Levaquin. * Being followed by Dr. Tate. (2) Chronic respiratory failure with hypoxia and hypercapnia: Code(s): J96.11 - Chronic respiratory failure with hypoxia; J96.12 - Chronic respiratory failure with hypercapnia Status: Acute Assessment and Plan: Acute on chronic Currently on home O2 oxygen settings 12/10/24: * See 1. Above. * No new increase in oxygen requirement. 12/11/24: * Unchanged 12/12/24: * Continue supplemental oxygen. (3) Other abnormalities of gait and mobility: Code(s): R26.89 - Other abnormalities of gait and mobility Status: Acute Assessment and Plan: 12/10/24: * Patient with complaints of weakness today. States she has not been out of bed since she has been here and does not feel that she could walk independently as she normally does at baseline. * PT OT evaluation ordered for discharge recommendations. Suspect will discharge in next 1-2 days * Fall precautions 12/11/24: * PT/OT * Fall precautions. 12/12/24: * Family would like pt to go to a rehab/snf, but she refuses at discharge wanting to go home instead. (4) Anxiety disorder, unspecified: Code(s): F41.9 - Anxiety disorder, unspecified Status: Chronic Assessment and Plan: Not on medication 12/10/24: * Appears stable without any p.r.n. needs for control (5) HTN (hypertension): Code(s): I10 - Essential (primary) hypertension Status: Chronic Assessment and Plan: Continue Norvasc 12/10/24: * Currently well controlled. Continue home medications of amlodipine. * Monitor and trend labs and vital signs. 12/12/24: * Stable 1-teens - 130s/50s-70s. * Continue current treatment. (6) Dry eye: Code(s): H04.129 - Dry eye syndrome of unspecified lacrimal gland Status: Chronic Assessment and Plan: 12/10/2024: * Artificial tears ordered Plan This pt was examined today sitting at the bedside in chair in no acute distress. She remains on supplemental oxygen at this time. She is being followed by Pulmonology and discussed and being treated with oralLevaquin. Repeat CXR on 12/12 did not shows no interval change. patient is not requiring any oxygen at rest however with exertion patient is requiring 1L, patient had apnea link last night with 4L,and her saturation good, last night patient had apnea link with 2L, the results were reviewed by Dr. Queen results showed hypoxia and recommended to repeat apnea link tonight with 4L, repeat apnea link with 4L, showed better oxygen saturation and will require home O2 evaluation befor going home, her cardio ECHO showed normal LV function with grad I diastolic dysfunction, She has no new complaints today other than no BM for few days, which is normal for the patient, will give miralax, and no new symptoms. will CPM and monitor. will discharge on Monday. Subjective Date/time seen: 12/15/24 11:53 Interval history: This pt was examined today sitting at the bedside in chair in no acute distress. She remains on supplemental oxygen at this time. She is being followed by Pulmonology and discussed and being treated with oralLevaquin. Repeat CXR on 12/12 did not shows no interval change. patient is not requiring any oxygen at rest however with exertion patient is requiring 1L, patient had apnea link last night with 4L,and her saturation good, last night patient had apnea link with 2L, the results were reviewed by Dr. Queen results showed hypoxia and recommended to repeat apnea link tonight with 4L, repeat apnea link with 4L, showed better oxygen saturation and will require home O2 evaluation befor going home, her cardio ECHO showed normal LV function with grad I diastolic dysfunction, She has no new complaints today other than no BM for few days, which is normal for the patient, will give miralax, and no new symptoms. will CPM and monitor. will discharge on Monday. Review of Systems Review of Systems: 12 systems were reviewed and are negativ e except for as per HPI. All systems reviewed & are unremarkable except as noted in HPI and below Exam Narrative: Appears chronically ill Patient is comfortable, NAD HEENT: eyes are clear and none icteric LUNGS: Bilateral poor air entry HEART: RR S1S2 ABD: BS+, Soft and nontender Lower extremities: no edema SKIN: nonjaundiced Neuro: grossly intact. Objective Data Vital Signs Vital Signs: Vital Signs - 24 hr 12/14/24 14:00 12/14/24 15:37 12/14/24 15:50 Temperature 36.9 C Pulse Rate 83 85 81 Respiratory Rate 22 H 24 H 24 H Blood Pressure 116/64 Pulse Oximetry 95 Oxygen Delivery Oxygen Flow Rate 12/14/24 20:00 12/14/24 20:49 12/14/24 21:11 Temperature 36.6 C Pulse Rate 82 78 Respiratory Rate 24 H 20 Blood Pressure 140/77 Pulse Oximetry 97 95 Oxygen Delivery Nasal Cannula Oxygen Flow Rate 1 12/14/24 21:11 12/14/24 21:22 12/14/24 22:05 Temperature Pulse Rate 80 78 Respiratory Rate 20 Blood Pressure Pulse Oximetry 97 96 Oxygen Delivery Nasal Cannula Oxygen Flow Rate 2 12/15/24 04:22 12/15/24 07:34 12/15/24 07:42 Temperature 36.1 C L Pulse Rate 67 67 70 Respiratory Rate 18 18 20 Blood Pressure 132/68 Pulse Oximetry 94 94 Oxygen Delivery Nasal Cannula Oxygen Flow Rate 1 12/15/24 07:51 12/15/24 07:54 Temperature Pulse Rate 69 69 Respiratory Rate 20 20 Blood Pressure Pulse Oximetry 100 Oxygen Delivery Nasal Cannula Oxygen Flow Rate 1 Intake/Output Intake/Output: Intake & Output 12/12/24 12/13/24 12/14/24 12/15/24 23:59 23:59 23:59 23:59 Intake Total 1920 1518 1660 540 Output Total 500 Balance 1420 1518 1660 540 Meds/Results Medications: Active Medications Generic Name Dose Route Start Last Admin Trade Name Freq PRN Reason Stop Dose Admin Acetaminophen 650 mg 12/09/24 16:10 Acetaminophen 325 Mg Tablet PO Q4H PRN Mild Pain (1-3) or Fever Acetylcysteine 200 mg 12/13/24 12:00 12/15/24 11:26 Acetylcysteine 20% Inhal Soln 800 Mg/4 Ml Vial INHALATION Not Given [id number] DONNA Albuterol 2.5 mg 12/11/24 17:05 Albuterol Sulfate Neb 2.5 Mg/3 Ml Inh INHALATION Q6HRT PRN Wheezing Albuterol/Ipratropium 3 ml 12/13/24 12:00 12/15/24 11:27 Ipratropium 0.5 Mg/Albuterol Sulfate 2.5 Mg Ampul.Neb 3 Ml INHALATION 3 ml [id number] DONNA Administration Amlodipine Besylate 10 mg 12/10/24 09:00 12/15/24 09:13 Amlodipine Besylate 10 Mg Tablet BY MOUTH 10 mg DAILY DONNA Administration Artificial Tears 1 drop 12/10/24 08:48 12/12/24 21:23 Artificial Tears Ophth Soln 15 Ml Bottle EACH EYE 1 drop QID PRN Administration Dry Eye(s) Docusate Sodium 100 mg 12/14/24 09:47 12/14/24 10:06 Docusate Sodium 100 Mg Capsule PO 100 mg Q12H PRN Administration Constipation Enoxaparin Sodium 40 mg 12/10/24 09:00 12/15/24 09:13 Enoxaparin 40 Mg/0.4 Ml Syringe SUB-Q 40 mg DAILY DONNA Administration Guaifenesin 1,200 mg 12/09/24 21:00 12/15/24 09:13 Guaifenesin 12 Hr 600 Mg Tabcr PO 1,200 mg Q12HR DONNA Administration Levofloxacin/Dextrose 750 mg in 150 mls @ 100 mls/hr 12/15/24 09:00 12/15/24 10:42 Levaquin 750 Mg/D5w 150 Ml IVPB 12/21/24 10:29 Infused Q48HR DONNA Infusion Vancomycin HCl 1,250 mg in 250 mls @ 166.667 mls/hr 12/15/24 02:00 12/15/24 01:48 Vancomycin 1,250 Mg/Ns 250 Ml IVPB 12/21/24 23:59 166.67 mls/hr Q12H DONNA Administration Mupirocin 1 applic 12/12/24 09:00 12/15/24 09:16 Mupirocin 2% Oint 22 Gm Tube EACH NARE 12/16/24 21:01 1 applic Q12HR DONNA Administration Radiology Results: ITS Impressions Chest CTA 12/09/24 14:51 IMPRESSION: 1. No pulmonary embolism. 2. Severe emphysema with extensive airspace disease in the right upper lobe including dense consolidation in the suprahilar region consistent with pneumonia. Possible additional small region of pneumonia versus atelectasis at the peripheral left upper lobe. 3. Very small right pleural effusion. Chest X-Ray 12/12/24 06:29 Impression: 1: No significant change compared with 12/09/2024 allowing for technique. Labs Labs: Laboratory Results - last 24 hr 12/15/24 12/15/24 00:56 05:25 WBC 5.8 RBC 3.54 L Hgb 10.3 L Hct 33.4 L MCV 94.4 MCH 29.1 MCHC 30.8 L RDW 13.7 Plt Count 245 MPV 9.3 Immature Gran % (Auto) 1.4 H Neut % (Auto) 67.6 Lymph % (Auto) 18.0 L [place] % (Auto) 8.0 Eos % (Auto) 4.7 H Baso % (Auto) 0.3 Lymph # (Auto) 1.04 [place] # (Auto) 0.5 Eos # (Auto) 0.3 Baso # (Auto) 0.0 Abs Immat Gran (auto) 0.08 H Absolute Neuts (auto) 3.9 Absolute Nucleated RBC 0.000 Nucleated RBC % 0.0 Sodium 134 L Potassium 4.0 Chloride 97 L Carbon Dioxide 37 H Anion Gap 0 L BUN 11 Creatinine 0.44 L Estim Creat Clear Calc 60 Estimated GFR > 60 Glucose 74 Calcium 8.1 L Magnesium 2.1 Total Bilirubin 0.1 L AST 27 ALT 17 Alkaline Phosphatase 52 Total Protein 5.0 L Albumin 2.6 L Vancomycin Trough 12.9 Quality VTE Prophylaxis VTE prophylaxis: pharmacologic ordered
[2024-12-16] VITALS (10 sets, daily range): BP systolic 129–143; BP diastolic 67–79; PULSE 60–78; RESP 12–20; TEMP 36.3–36.7; O2SAT 93–98
[2024-12-16] MEDS: VANCOMYCIN 1,250 MG/NS 250 ML 1,250 MG/250 ML BAG 166.67 MG IVPB (02:06)
[2024-12-16 05:59] LABS: Hematocrit 36.1 % (37.0-47.0); Hemoglobin 11.0 g/dL (12.0-15.0); Immature Granulocyte Percent A 2.8 % (0-0.5); Lymphocytes Absolute Auto 1.16 K/mm3 (0.9-3.2); Mean Corpuscular HGB Conc 30.5 g/dl (32-36); Mean Corpuscular Hemoglobin 29.3 pg (26-34); Mean Corpuscular Volume 96.3 fl (80-100); Nucleated Red Blood Cells Absolute Auto 0.000 K/mm3 (0.0-0.012); Nucleated Red Blood Cells Perc 0.0 % (0.0-0.2); Platelet Count Result 271 k/mm3 (150-375); Red Blood Count 3.75 M/mm3 (4.2-5.4); White Blood Count 6.9 K/mm3 (4.5-10.0)
[2024-12-16 06:26] LABS: Alanine Aminotransferase 22 U/L (6-35); Albumin Level 2.9 g/dL (3.5-5.1); Alkaline Phosphatase 53 U/L (38-126); Anion Gap 1 mmol/L (4-12); Aspartate Amino Transferase 31 U/L (14-36); Bilirubin,Total < 0.1 mg/dL (0.2-1.3); Blood Urea Nitrogen 12 mg/dL (7-17); Calcium 8.5 mg/dL (8.4-10.2); Carbon Dioxide 36 mmol/L (22-30); Chloride 97 mmol/L (98-107); Estimated CRCL calculation 56 ml/min; Estimated Glomerular Filt Rate > 60; Glucose 72 mg/dL (65-110); Magnesium 2.2 mg/dL (1.6-2.3); Potassium 4.6 mmol/L (3.4-5.0); Sodium 134 mmol/L (137-145); Total Protein 5.5 g/dL (6.3-8.2)
[2024-12-16] MEDS: IPRATROPIUM 0.5 MG/ALBUTEROL SULFATE 2.5 MG AMPUL.NEB 3 ML INHALATION ×3 (08:06→20:48)
[2024-12-16] MEDS: ACETYLCYSTEINE 20% INHAL SOLN 800 MG/4 ML VIAL 200 MG INHALATION (08:06)
[2024-12-16] MEDS: guaiFENesin 12 HR 600 MG TABCR 1200 MG PO (09:14)
[2024-12-16] MEDS: ENOXAPARIN 40 MG/0.4 ML SYRINGE SUB-Q (09:14)
[2024-12-16] MEDS: MUPIROCIN 2% OINT 22 GM TUBE 1 APPLIC EACH NARE ×2 (09:15→21:52)
--- NOTE | 2024-12-16 09:47 | P.PNPL_ITS ---
Progress Note: A&P Assessment and Plan (1) Pneumonia: Code(s): J18.9 - Pneumonia, unspecified organism Status: Acute Assessment and Plan: Patient presents with an acute respiratory illness starting 12/07/2024 with progressive worsening weakness, shortness of breath, dyspnea on exertion. CT scan shows new dense consolidations in the right upper lobe, right middle lobe and left upper lobe compared to 05/06/2021. Patient was started on Solu-Medrol, bronchodilators, ceftriaxone and azithromycin and feels improved. PSI score 110 consistent with severe community-acquired pneumonia. 12/11/2024: The patient tells me she is breathing better today, 50-60% back to her normal. Overall her body feels better. She started producing yellow phlegm today and this helps her breathe when she expectorates. She is on 1 L nasal cannula saturation 96%. Plan: Blood cultures are pending. I will send sputum culture, COVID, RSV, influenza RT PCR, urine for Legionella antigen, urine for pneumococcal antigen, extended respiratory pathogen panel, serum mycoplasma IgM. I will check CRP and procalcitonin on 12/11/2024. Patient appears to be clinically responding to ceftriaxone and azithromycin, both day 2 and I will continue. Currently the patient is on Solu-Medrol 60 q.12 hours. I hear no wheezing and I will change her to Solu-Cortef 50 q.6 hours for severe community-acquired pneumonia. I will order an echocardiogram for 12/12/2024. I will repeat a chest x-ray on 12/12. 12/12/24: Overall the patient tells me she is better. She feels she has 60-70% back to her normal. She has no rest shortness of breath. She has dyspnea on exertion with when using walker and walking to the bathroom. She denies cough, phlegm or hemoptysis. She is afebrile. White blood cell count 8.2, creatinine 0.42, BNP 770, procalcitonin 0.2, CRP 4.5. Chest x-ray today demonstrates no change in her diffuse interstitial alveolar infiltrates right greater than left. MRSA swab is positive and patient started on vancomycin. Plan: Patient with a history of Pseudomonas that was pansensitive on 09/29/2019. MRSA is positive. Will change patient's ceftriaxone and azithromycin to Levaquin and continue vancomycin. Patient has been on systemic steroids since 12/09 (day 4) she remains hemodynamically stable, oxygenation is stable, Chest x-ray stable, will decrease Solu-Cortef to 25 q.6 today. Blood cultures negative. Sputum culture, echocardiogram, respiratory pathogen panel, urine Legionella, urine pneumococcal antigen, serum mycoplasma IgM pending. Later in the day patient had an echocardiogram with an LVEF of 60-65%, grade 1 diastolic dysfunction, normal right ventricular size and function, normal right atrial size, trace mitral regurg, no tricuspid regurg. 12/13/2024: patient tells me she continues to improve. States he is 80% back to her normal. She has no cough, no phlegm, no hemoptysis. She has no shortness of breath at rest she has dyspnea on exertion when she walks across the room. When I enter the room she was on 1 L nasal cannula saturations 98%. I decreased her to room air and after 4 minutes her saturations were 87% placed her back on 1 L and her saturations were 97%. She is afebrile. White blood skull count 6.8, creatinine 0.57. Yesterday she was positive 1.4 L and cumulative she is positive 4.7 L since admission. Weight today is 46.3. Yesterday she walked 92 ft with physical therapy on 2 L her saturation decreased into the low 80s. Increase to 4 L and patient recovered to 99%. Plan: patient continues to improve. Continue levofloxacin, day 2 and vancomycin, day 2 ( total antibiotics day 4). Will continue these IV antibiotics while she is in the hospital. Blood cultures negative to date. Sputum culture, respiratory pathogen panel, urine Legionella, urine pneumococcal antigen, serum mycoplasma IgM pending. 12/16/2024: Patient tells me she continues to improved and is now breathing back to her normal. She denies cough, phlegm, wheezing or hemoptysis. She is afebrile. Room air saturations 97%. white blood cell count 6.9, creatinine 0.48. Chest x-ray compared to 12/12/2024 per my read with mild improvement right upper lobe, mild worsening bilateral lower lobes, no pleural effusions. Blood cultures negative today. Respiratory pathogen panel negative. Serum mycoplasma IgM normal at less than 770. Urine Legionella negative. You minute urine pneumococcal pending. plan: I will levofloxacin day 5, vancomycin day 5, total antibiotics day 7. If the patient Remains clinically stable will discharge on 12/17/2024 on these pulmonary medications: Linezolid 600 mg p.o. q.12 hours last dose on 12/21/2024 Levofloxacin 750 mg p.o. Q 48 hours, last dose on 12/21/2024. Wixela 250-50 1 puff b.i.d. Tiotropium bromide 18 mcg 1 puff q.day Rescue albuterol 2 puffs q.4 hours p.r.n. shortness of breath or wheezing Guaifenesin 1200 mg p.o. b.i.d. Cornet flutter valve q.4 hours while awake. When she naps or sleeps home noninvasive ventilator through [facility] breath rate is 10, tidal volume 520, minimum EPAP 7, maximal EPAP 10, minimum pressure support 8, maximal pressure support 20. inspiratory time 0.6. Rise time 2.0, with 4 L bleed in. Oxygen at rest and with activity per formal home O2 assessment prior to discharge Discussed with Dr. Gerber, will follow with you. (2) COPD (chronic obstructive pulmonary disease): Code(s): J44.9 - Chronic obstructive pulmonary disease, unspecified Status: Acute Assessment and Plan: GOLD grade 4 group B COPD COPD diagnosed in 1999 with chronic hypoxic and hypercarbic respiratory failure on noninvasive ventilation and on home oxygen 2.0 L 24-7. Tobacco use (40 PY quit 2010). 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 PFTs 07/16/2020 with an FEV1 of 0.41 L, 24% predicted, ratio 28%, air trapping, hyperinflation and a moderately decreased DLCO when adjusted for alveolar volume. CTA on 05/06/2021 with severe panlobular emphysema in all lung benavidez. Maintained on triple inhalers. In patient exacerbation 05/06/2021 through 05/11/2021, Outpatient exacerbation 06/15/2021. outpatient COPD Exacerbation 11/03/2023. 01/10/2022 with a white blood cell count of 6.7, eosinophils 0.6%=40/uL. 07/18/2022: White blood cell count 5.6, eosinophils 0.4% equal 22 per micro L. 06/26/2023: White blood cell count 5.6, eosinophils 0.2%=11/uL. Patient has been on noninvasive ventilation at night since 05/11/2021. Patient states at baseline she can walk 1/4 block, she can clean her house, she has no chronic cough, no chronic phlegm production, does not wheeze. ? she is maintained on Advair 500-50 at 1 puff b.i.d. and tiotropium bromide 18 mcg at 1 puff q.day. CAT score 21 on 06/15/2021.? 12/11/24: Patient has no wheezing at this time. She has a pneumonia and possible COPD exacerbation. currently she is on 1 L nasal cannula saturations 96%. Plan: Continue treatment for pneumonia as above. A change her steroids to Solu-Cortef 50 q.6 for community-acquired pneumonia dose. I will place her on DuoNebs q.6 hours, Mucomyst 200 q.6 hours, continue guaifenesin 1200 p.o. b.i.d. to help her expectorate. Goal saturation 90-94%. 12/12/24: No wheezing at this time. she has no cough and no phlegm production today. currently tolerating 1 L nasal cannula. Plan: Solu-Cortef 25 q.6, DuoNebs q.6, Mucomyst q.6 and guaifenesin 1200 p.o. b.i.d. 12/13/24: No wheezing. No cough and no phlegm production. Tolerating 1 L at rest. Plan: I will discontinue Solu-Cortef today (day 5), I will change DuoNebs and Mucomyst to q.4 hours while awake. Continue guaifenesin 1200 p.o. b.i.d.. Continue Cornet flutter valve. 12/16/2024: Patient states she is breathing at her baseline. Plan: Continue DuoNebs q.4 hours. I will discontinue Mucomyst today. Continue guaifenesin 1200 p.o. b.i.d. and continue flutter valve. (3) Chronic respiratory failure with hypoxia and hypercapnia: Code(s): J96.11 - Chronic respiratory failure with hypoxia; J96.12 - Chronic respiratory failure with hypercapnia Status: Acute Assessment and Plan: Patient with chronic hypoxemic respiratory failure requiring 2 L at rest, 3 L with activity and 5 L bleed in with her noninvasive ventilator. Patient use nocturnal noninvasive ventilation for chronic hypercarbic respiratory failure with the AVAPS AE mode through [facility]. Attempted to place her on hospital BiPAP machine last night but she could not get enough air and could not tolerate it. Download from [facility] from 08/12/2024 through 10/15/2024: Patient is on AVAPS- AE, breath rate is 10, tidal volume 520, minimum EPAP 7, maximal EPAP 10, minimum pressure support 8, maximal pressure support 20. inspiratory time 0.6. Rise time 2.0.? % of days used 4 more hours is 98%.? Average usage on days used is 6 hour s25 minutes.? median tidal volume is 678 mL, median minute ventilation is 6.8, Fifth percentile EPAP 6.8. median EPAP is 9.2, median peak inspiratory pressures 17.8,? average unintentional leak is 1.0. ??I interpret this download as excellent compliance with adequate pressures and low leak.? Of note the patient says she has not been able to wear the machine the last 2 weeks because it has been too hot in her trailer. Plan: I placed the patient on the hospital noninvasive ventilator with the AVAPS mode and adjusting settings to match her home settings and comfort. This resulted in a rate of 10, tidal volume 520, EPAP 7, minimal inspiratory pressure 8, maximal inspiratory pressure 25, inspiratory time 0.8, rise of 1 and 36% FiO2. I have told the family to bring her home machine in so we can eventually use this in the hospital. 12/12/24: Patient wore the hospital noninvasive ventilator with the AVAPS mode for few hours but said that the mask did not fit properly and the alarms kept her awake. She slept 2 L nasal cannula on. I placed the mask on her this m orning and adjusted the mask and she said the machine and mask felt good. Plan: If the patient is able to bring her home noninvasive ventilator she can wear this this evening with 4 L bleed in. Will obtain overnight oximetry on her home noninvasive ventilator. Otherwise patient should wear hospital noninvasive ventilator with the AVAPS mode and settings above with an overnight oximetry. 12/13/24: Patient wore home noninvasive ventilator AVAPS-AE, breath rate is 10, tidal volume 520, minimum EPAP 7, maximal EPAP 10, minimum pressure support 8, maximal pressure support 20. inspiratory time 0.6. Rise time 2.0, with 4 L bleed in and had an overnight oximetry with recording duration of 6 hours and 18 minutes. Average saturation 96%. Low saturation 92%. Time with saturation less than or equal to 88% was 0 minutes. Oxygen desaturation index 0. Plan: Will continue patient's home noninvasive ventilator. Will perform overnight oximetry on her home noninvasive ventilator with 2 L bleed in. 12/14/2024: Overnight oximetry on home noninvasive ventilator with 2 L bleed in: Recording duration 5 hours and 50 minutes. Average saturation 94%. Low saturation 66%. Time with saturation less than or equal to 88% was 7 minutes. Oxygen desaturation index 1.9. 12/16/2024. Patient states she did well last night on her home noninvasive ventilator with 4 L bleed in. Plan: Continue home noninvasive ventilator with 4 L bleed in. Subjective Date/time seen: 12/16/24 09:47 Interval history: 12/11/2024: This is a new pulmonary consult for COPD exacerbation and noninvasive ventilation. Patient followed in the Pulmonary Clinic and last seen on 09/11/2024: Summary of that visit: Download 11/17/2023 through 02/14/2024 with poor compliance at 31%, adequate pressures and high leak.? I called the patient and she says she has been wearing the machine every night whereas the download records only 1 hour.? DME notified 04/15/2024:? Patient with green and yellow phlegm and SOB.? I treated her for COPD exacerbation prescribed Z-pack and prednisone x5 days. 06/18/2024: Overnight oximetry on noninvasive ventilator with 5 L bleed in with adequate saturations. Patient has had no hospitalizations or exacerbations since 04/15/2024. Overall the patient tells me she is doing pretty good today. She is clinically stable with dyspnea on exertion room to room, her M MRC grade is 3. She can do some cleaning but is no longer going to religious. The patient is taking Wixela 500-50 at 1 puff q.day, Spiriva 18 mcg a day and rescue albuterol which she uses 1 time about every 3 months. The patient is using 2 L nasal cannula at rest with saturations 96-97. She is using 3 L with activity and does not measure her home oxygen. The patient is not smoking or exposed to secondhand smoke. Patient's CAT score today has improved from 14 to a value of 7. Patient states she is eating better and has gained 2 lb from 95 lb to 97 lb. The patient is wearing her home noninvasive ventilator every night with a fullface mask and says she sleeps good from 10-5 a.m.. She is wearing 5 L bleed in with this. She assures me she is wearing the every mask every night and I have told her her machine is not transmitting data properly but she says she is wearing her mask and machine every night. Download from?06/03/2024 through 08/12/2024 from [employer]. Patient is on AVAPS- AE, breath rate is 10, tidal volume 520, minimum EPAP 7, maximal EPAP 10, minimum pressure support 8, maximal pressure support 20. inspiratory time 0.6. Rise time 2.0.? % of days used is 1.4%. Days used 4 more hours is 1.4%.? Average usage on days used is 6.4 hours.? Average tidal volume is 461 mL, average minute ventilation is 8.6, average EPAP is 7.3, average peak inspiratory pressures 16.3,? average unintentional leak is 17.7. ??I interpret this download as poor compliance with adequate pressures and high leak.? Of note on 07/31/2024 the [employer] performed a home visit which stated the patient was using her machine with a rate of 12, tidal volume 470, 5 L O2 bleed in and the patient told them the machine helps her breathe at night. Patient states she uses the machine every night but it is not tracking. Plan: continue Wixela but change dose to 250-50 at 1 puff twice a day, continue Spiriva 18 mcg a day and rescue albuterol. Continue her noninvasive ventilator with the AVAPS mode every night With 5 L bleed in. Continue 2 L at rest, 3 L with activity Patient was in her usual state of health on 12/06. On 12/07/2024 she developed a cough, shortness of breath and weakness. Symptoms progressed and she presented to the emergency department on 12/09/2024. Blood pressure 133/70, respirations 34, heart rate 95, saturations on 2 L nasal cannula 96%. She had wheezing and decreased breath sounds. White blood cell count 11.4 with eosinophils 0.1% creatinine 0.57. ABG on 1 L nasal cannula 7.53/44 / oxygen was not measured. Patient had a CT angiogram of the chest Compared to 05/06/2021 that showed severe panlobular emphysema dense infiltrate with new consolidation right upper lobe, right middle lobe and left upper lobe. patient was given Solu- Medrol, bronchodilators, azithromycin and ceftriaxone. 12/11/2024: The patient tells me she is breathing better today, 50-60% back to her normal. Overall her body feels better. She started producing yellow phlegm today and this helps her breathe when she expectorates. She is on 1 L nasal cannula saturation 96%. They attempted to place her on hospital BiPAP machine last night but she could not get enough air and could not tolerate it. I placed the patient on the hospital noninvasive ventilator with the AVAPS mode And adjusting settings to match her home settings and comfort. This resulted in a rate of 10, tidal volume 520, EPAP 7, minimal inspiratory pressure 8, maximal inspiratory pressure 25, inspiratory time 0.8, rise of 1 and 36% FiO2. 12/12/24: Overall the patient tells me she is better. She feels she has 60-70% back to her normal. She has no rest shortness of breath. She has dyspnea on exertion with when using walker and walking to the bathroom. She denies cough, phlegm or hemoptysis. She is afebrile. White blood cell count 8.2, creatinine 0.42, BNP 770, procalcitonin 0.2, CRP 4.5. Chest x-ray today demonstrates no change in her diffuse interstitial alveolar infiltrates right greater than left. MRSA swab is positive and patient started on vancomycin. Patient wore the hospital noninvasive ventilator with the AVAPS mode for few hours but said that the mask did not fit properly and the alarms kept her awake. She slept 2 L nasal cannula on. I placed the mask on her this morning and adjusted the mask and she said the machine and mask felt good. Later in the day patient had an echocardiogram with an LVEF of 60-65%, grade 1 diastolic dysfunction, normal right ventricular size and function, normal right atrial size, trace mitral regurg, no tricuspid regurg. 12/13/2024: patient tells me she continues to improve. States he is 80% back to her normal. She has no cough, no phlegm, no hemoptysis. She has no shortness of breath at rest she has dyspnea on exertion when she walks across the room. When I enter the room she was on 1 L nasal cannula saturations 98%. I decreased her to room air and after 4 minutes her saturations were 87% placed her back on 1 L and her saturations were 97%. She is afebrile. White blood skull count 6.8, creatinine 0.57. Yesterday she was positive 1.4 L and cumulative she is positive 4.7 L since admission. Weight today is 46.3. Yesterday she walked 92 ft with physical therapy on 2 L her saturation decreased into the low 80s. Increase to 4 L and patient recovered to 99%. Patient wore home noninvasive ventilator AVAPS-AE, breath rate is 10, tidal volume 520, minimum EPAP 7, maximal EPAP 10, minimum pressure support 8, maximal pressure support 20. inspiratory time 0.6. Rise time 2.0, with 4 L bleed in and had an overnight oximetry with recording duration of 6 hours and 18 minutes. Average saturation 96%. Low saturation 92%. Time with saturation less than or equal to 88% was 0 minutes. Oxygen desaturation index 0. Inpatient consult services will resume 12/16. 12/16/2024: Patient tells me she continues to improved and is now breathing back to her normal. She denies cough, phlegm, wheezing or hemoptysis. She is afebrile. Room air saturations 97%. white blood cell count 6.9, creatinine 0.48. Chest x-ray compared to 12/12/2024 per my read with mild improvement right upper lobe, mild worsening bilateral lower lobes, no pleural effusions. DATA: 12/12/24: Echo Summary 1. Complete two-dimensional, color flow and Doppler transthoracic echocardiogram is performed. 2. Left ventricular chamber dimension is normal. 3. Left ventricular systolic function is normal, estimated at 60-65. 4. The left ventricular diastolic function is grade I diastolic dysfunction. 5. E/e' 9 is minimally elevated. 6. There is moderate aortic valve sclerosis. 7. There is trace mitral valve regurgitation. Right Ventricle Right ventricular chamber dimension is normal. Right ventricular systolic function is normal and with TAPSE 1.7 cm. Left Atria Left atrial chamber dimension is normal. Right Atria Right atrial chamber dimension is normal. 12/09/24: EXAMINATION: CTA chest PE protocol INDICATION: Shortness of breath COMPARISON: 05/06/2021 FINDINGS: No pulmonary emboli. Severe emphysema. There is septal line thickening and fluid filling of the cystic airspaces in the right upper lobe with dense region of consolidation in the suprahilar region consistent with pneumonia. Is also a small region of peripheral consolidation along a band of scarring in the left upper lobe which could also represent atelectasis or pneumonia. Very small right pleural effusion. Heart size is normal. Atherosclerotic coronary artery calcific location. No pericardial effusion. Thoracic aorta is normal in caliber with no dissection. No pathologically enlarged thoracic lymphadenopathy. Likely benign 6 mm low-attenuation nodule in the right thyroid lobe. Multiple splenic calcific lesions consistent with old granulomatous disease. Couple small regions of cortical scarring at the left kidney consistent with sequela of prior infection or infarction. Visualized upper abdomen is otherwise unremarkable. Mild thoracic spondylosis. IMPRESSION: 1. No pulmonary embolism. 2. Severe emphysema with extensive airspace disease in the right upper lobe including dense consolidation in the suprahilar region consistent with pneumonia. Possible additional small region of pneumonia versus atelectasis at the peripheral left upper lobe. 3. Very small right pleural effusion. 06/18/2024: Overnight oximetry on noninvasive ventilator with 5 L bleed in. Recording duration 2 hours and 38 minutes. Basal saturation 96.6%. High saturation 99%. Low saturation 90%. Time with saturation less than or equal to 88% was 0 minutes. Oxygen desaturation index is 0. I will continue noninvasive ventilator with 5 L bleed in at night. 05/08/2023: Alpha 1 anti trypsin genotype MM, normal ??05/11/2021:? Home O2 assessment.? Rest room air saturations 85%, rest 1 L nasal cannula saturation 87%, rest 2 L nasal cannula saturation 94%, ambulation 2 L saturation 90%.? Patient requires 2 L with rest and with activity. ?05/06/21 EXAMINATION: CTA chest PE protocol ??INDICATION: SOB. ??Comparison is made to prior examination from 02/08/2017. ??FINDINGS:? Pulmonary arteries are well opacified and without intraluminal filling defects. ? No thoracic aortic dissection.? There is severe emphysema. Dependent subsegmental atelectasis.? Some endobronchial debris in the bronchus intermedius.? There is no mediastinal, hilar or axillary lymphadenopathy. ? There is no pneumothorax. ? Heart normal in size. ? There is mild coronary arterial calcification, arterial sclerosis.? Upper abdomen is unremarkable. ? There is thoracic spondylosis without osteoblastic or osteolytic lesions identified. ??IMPRESSION: ??1.? Dependent subsegmental atelectasis. ??2.? Some endobronchial debris. ??3.? Severe emphysema. ??4.? No pulmonary emboli. ?? ?07/16/2020: I have a report from [facility] at [facility]? [facility]. ??This is a pulmonary function test with pre and post-bronchodilator spirometry, plethysmography and diffusing capacity.? ?Findings: ?Spirometry: ? There is decreased maximal expiratory airflow at all lung volumes with the concave expiratory flow tracing.? The contour of the inspiratory flow tracing is normal.? The pre bronchodilator FVC is 1.47 L, 63% predicted.? The pre bronchodilator FEV1 is 0.41 L, 24% predicted.? The pre bronchodilator FEV1:? FVC ratio is 28%.? The post bronchodilator FVC is 1.86 L, representing a 27% increase.? The post bronchodilator FEV1 is 0.47 L, representing a 16% increase.? The post bronchodilator FEV1: FVC ratio is 25%.? ?Plethysmography:? Total lung capacity is 6.11 L, 154% predicted.? The functional residual capacity is 5.34 L, 216% predicted.? The residual volume is 4.64 L, 281% predicted.? ?Plethysmography:? The diffusing capacity unadjusted for hemoglobin and carboxyhemoglobin is 3.0, 21% predicted.? The diffusing capacity adjusted for alveolar volume is 1.79, 53% predicted. ?Impression: There is a very severe obstructive abnormality with significant improvement after inhaling a single dose of albuterol. The increase in residual volume is consistent with air trapping from an obstructive abnormality.? Hyperinflation is present as demonstrated by the increase in functional residual capacity and total lung capacity and is consistent with an obstructive abnormality. The diffusing capacity unadjusted for hemoglobin and carboxyhemoglobin is severely decreased and remains moderately decreased when adjusted for alveolar volume. ?There are no prior studies for comparison ? ??09/25/2003 report no raw data available ??TEST: PFT ??FVC, FEV1, GRB1% decreased. There is acute bronchodilator response. Lung volumes are increased. RAW is increased. DLCO is decreased. ??Impression: Severe obstructive ventilatory defect with acute bronchodilator response. Decreased DLCO. ?08/23/1999: Chest X ray report: ??CHEST ??Indication: Fever. ??Technique: PA and lateral views. ??The lungs are prominently hyperinflated, with flattening of the diaphragm and increased retrosternal air space, consistent with chronic obstructive pulmonary disease. ??There are some increased interstitial markings in the lungs, particularly in the right mid and lower lung field which may be chronic. One cannot exclude some interstitial pneumonitis. Correlation clinically and comparison with prior chest radiographs is recommended. No pulmonary consolidation is evident. There is no pleural effusion. No pulmonary vascular congestion or any apparent adenopathy or pneumothorax is noted. ??The cardiac and mediastinal silhouettes are unremarkable. There is mild aortic calcification. ??IMPRESSION: CHRONIC OBSTRUCTIVE PULMONARY DISEASE. ??INCREASED INTERSTITIAL MARKINGS, RIGHT MID AND LOWER ??LUNG BENAVIDEZ ? RECOMMEND COMPARISON WITH PRIOR ??CHEST RADIOGRAPHS AND CLINICAL CORRELATION TO ??DIFFERENTIATE ACUTE FROM CHRONIC. Review of Systems Constitutional: Constitutional: Reports no additional constitutional complaints Eyes: Eyes: Reports no additional eye complaints ENT: Reports system reviewed and no additional complaints, except as documented Cardiovascular: Cardiovascular: Reports no additional cardiovascular complaints Respiratory: Respiratory: Reports no additional respiratory complaints Gastrointestinal: Gastrointestinal: Reports no additional gastrointestinal complaints Musculoskeletal: Musculoskeletal: Reports no additional musculoskeletal complaints Neurologic: Reports system reviewed and no additional complaints, except as documented Psychiatric: Psychiatric: Reports no additional psychiatric complaints Endocrine: Endocrine: Reports no additional endocrine complaints Hematologic/Lymphatic: Hematologic/Lymphatic: Reports no additional hematologic/lymphatic complaints Allergic/Immunologic: Allergic/Immunologic: Reports no additional allergic/immunologic complaints Exam Const: General: cooperative, comfortable and no acute distress Orientation/consciousness: oriented to person, oriented to place and oriented to time Other: Patient is extremely thin. HENMT: Head: normal to inspection Ears: hearing grossly normal bilaterally Eyes: General: appearance normal, both eyes and all related structures Neck: Neck: normal visual inspection Chest: Chest palpation & inspection: normal inspection of the chest Resp: Effort & Inspection: normal respiratory effort and able to speak in complete sentences Auscultation: no crackles, no rales, no rhonchi, no wheezes and diminished lung sounds Other: Diminished lung sounds Throughout, no wheezes, Cardio: Jugular venous distension: no JVD GI: Inspection: normal to inspection Skin: General skin exam: normal color Neuro: General: oriented to person, oriented to place and oriented to time Extrem: General: normal to inspection and no edema Psych: Appearance: grossly normal Objective Data Vital Signs Vital Signs: Vital Signs - 24 hr 12/15/24 14:00 12/15/24 16:32 12/15/24 16:43 Temperature 36.7 C Pulse Rate 81 75 72 Respiratory Rate 22 H 20 20 Blood Pressure 142/83 H Pulse Oximetry 93 Oxygen Delivery Oxygen Flow Rate 12/15/24 20:00 12/15/24 20:02 12/15/24 20:02 Temperature 36.2 C L Pulse Rate 70 77 76 Respiratory Rate 18 12 18 Blood Pressure 153/62 H Pulse Oximetry 94 92 Oxygen Delivery BiPAP Oxygen Flow Rate 12/15/24 20:12 12/15/24 21:42 12/15/24 23:30 Temperature Pulse Rate 76 70 Respiratory Rate 18 Blood Pressure Pulse Oximetry 98 94 Oxygen Delivery Nasal Cannula Oxygen Flow Rate 1 12/16/24 05:11 12/16/24 08:09 12/16/24 08:09 Temperature 36.3 C L Pulse Rate 60 68 68 Respiratory Rate 12 20 20 Blood Pressure 129/67 Pulse Oximetry 93 96 Oxygen Delivery Nasal Cannula Oxygen Flow Rate 1 Intake/Output Intake/Output: Intake & Output 12/13/24 12/14/24 12/15/24 12/16/24 23:59 23:59 23:59 23:59 Intake Total 1518 1660 2220 890 Balance 1518 1660 2220 890 Meds/Results Medications: Active Medications Generic Name Dose Route Start Last Admin Trade Name Freq PRN Reason Stop Dose Admin Acetaminophen 650 mg 12/09/24 16:10 Acetaminophen 325 Mg Tablet PO Q4H PRN Mild Pain (1-3) or Fever Albuterol 2.5 mg 12/11/24 17:05 Albuterol Sulfate Neb 2.5 Mg/3 Ml Inh INHALATION Q6HRT PRN Wheezing Albuterol/Ipratropium 3 ml 12/13/24 12:00 12/16/24 08:06 Ipratropium 0.5 Mg/Albuterol Sulfate 2.5 Mg Ampul.Neb 3 Ml INHALATION 3 ml [id number] DONNA Administration Amlodipine Besylate 10 mg 12/10/24 09:00 12/16/24 09:14 Amlodipine Besylate 10 Mg Tablet BY MOUTH 10 mg DAILY DONNA Administration Artificial Tears 1 drop 12/10/24 08:48 12/12/24 21:23 Artificial Tears Ophth Soln 15 Ml Bottle EACH EYE 1 drop QID PRN Administration Dry Eye(s) Docusate Sodium 100 mg 12/14/24 09:47 12/14/24 10:06 Docusate Sodium 100 Mg Capsule PO 100 mg Q12H PRN Administration Constipation Enoxaparin Sodium 40 mg 12/10/24 09:00 12/16/24 09:14 Enoxaparin 40 Mg/0.4 Ml Syringe SUB-Q 40 mg DAILY DONNA Administration Guaifenesin 1,200 mg 12/09/24 21:00 12/16/24 09:14 Guaifenesin 12 Hr 600 Mg Tabcr PO 1,200 mg Q12HR DONNA Administration Levofloxacin/Dextrose 750 mg in 150 mls @ 100 mls/hr 12/15/24 09:00 12/15/24 10:42 Levaquin 750 Mg/D5w 150 Ml IVPB 12/21/24 10:29 Infused Q48HR DONNA Infusion Vancomycin HCl 1,250 mg in 250 mls @ 166.667 mls/hr 12/15/24 02:00 12/16/24 03:36 Vancomycin 1,250 Mg/Ns 250 Ml IVPB 12/21/24 23:59 Infused Q12H DONNA Infusion Mupirocin 1 applic 12/12/24 09:00 12/16/24 09:15 Mupirocin 2% Oint 22 Gm Tube EACH NARE 12/16/24 21:01 1 applic Q12HR DONNA Administration Radiology Results: ITS Impressions Chest CTA 12/09/24 14:51 IMPRESSION: 1. No pulmonary embolism. 2. Severe emphysema with extensive airspace disease in the right upper lobe including dense consolidation in the suprahilar region consistent with pneumonia. Possible additional small region of pneumonia versus atelectasis at the peripheral left upper lobe. 3. Very small right pleural effusion. Chest X-Ray 12/16/24 08:50 IMPRESSION: 1. Labs Labs: Laboratory Results - last 24 hr 12/16/24 04:50 WBC 6.9 RBC 3.75 L Hgb 11.0 L Hct 36.1 L MCV 96.3 MCH 29.3 MCHC 30.5 L RDW 13.6 Plt Count 271 MPV 9.3 Immature Gran % (Auto) 2.8 H Neut % (Auto) 67.3 Lymph % (Auto) 16.8 L [place] % (Auto) 8.1 Eos % (Auto) 4.4 Baso % (Auto) 0.6 Lymph # (Auto) 1.16 [place] # (Auto) 0.6 Eos # (Auto) 0.3 Baso # (Auto) 0.0 Abs Immat Gran (auto) 0.19 H Absolute Neuts (auto) 4.6 Absolute Nucleated RBC 0.000 Nucleated RBC % 0.0 Sodium 134 L Potassium 4.6 Chloride 97 L Carbon Dioxide 36 H Anion Gap 1 L BUN 12 Creatinine 0.48 L Estim Creat Clear Calc 56 Estimated GFR > 60 Glucose 72 Calcium 8.5 Magnesium 2.2 Total Bilirubin < 0.1 L AST 31 ALT 22 Alkaline Phosphatase 53 Total Protein 5.5 L Albumin 2.9 L
--- NOTE | 2024-12-16 10:45 | PCNWS ---
Weekly nutritional screen. Patient is tolerating current heart healhty diet with adequate intake 75-100%. No weight loss reported. Possible discharge today. No nutritional recommendations at this time.
--- NOTE | 2024-12-16 12:18 | P.PNIM_ITS ---
Progress Note: A&P Assessment and Plan (1) COPD (chronic obstructive pulmonary disease): Code(s): J44.9 - Chronic obstructive pulmonary disease, unspecified Status: Acute Assessment and Plan: COPD exacerbation Rocephin and Zithromax DuoNebs Solu-Medrol Blood cultures pending 12/10/24: * Continue Rocephin and azithromycin, DuoNebs and Solu-Medrol as well as Incruse Ellipta * Await results of blood cultures * Patient at baseline 2 L supplemental oxygen. 12/11/24: * Continue Rocephin and azithromycin, DuoNebs and Solu-Medrol as well as Incruse Ellipta * Blood cultures no grow to date. * Patient at baseline 2 L supplemental oxygen. * Agriculture Technician referral, she is a patient of Dr. Díaz. * Decrease Methylprednisolone 60 mg ivp q12. 12/12/24: * Continue all treatments. * Abx were changed today to po Levaquin. * Being followed by Dr. Tate. (2) Chronic respiratory failure with hypoxia and hypercapnia: Code(s): J96.11 - Chronic respiratory failure with hypoxia; J96.12 - Chronic respiratory failure with hypercapnia Status: Acute Assessment and Plan: Acute on chronic Currently on home O2 oxygen settings 12/10/24: * See 1. Above. * No new increase in oxygen requirement. 12/11/24: * Unchanged 12/12/24: * Continue supplemental oxygen. (3) Other abnormalities of gait and mobility: Code(s): R26.89 - Other abnormalities of gait and mobility Status: Acute Assessment and Plan: 12/10/24: * Patient with complaints of weakness today. States she has not been out of bed since she has been here and does not feel that she could walk independently as she normally does at baseline. * PT OT evaluation ordered for discharge recommendations. Suspect will discharge in next 1-2 days * Fall precautions 12/11/24: * PT/OT * Fall precautions. 12/12/24: * Family would like pt to go to a rehab/snf, but she refuses at discharge wanting to go home instead. (4) Anxiety disorder, unspecified: Code(s): F41.9 - Anxiety disorder, unspecified Status: Chronic Assessment and Plan: Not on medication 12/10/24: * Appears stable without any p.r.n. needs for control (5) HTN (hypertension): Code(s): I10 - Essential (primary) hypertension Status: Chronic Assessment and Plan: Continue Norvasc 12/10/24: * Currently well controlled. Continue home medications of amlodipine. * Monitor and trend labs and vital signs. 12/12/24: * Stable 1-teens - 130s/50s-70s. * Continue current treatment. (6) Dry eye: Code(s): H04.129 - Dry eye syndrome of unspecified lacrimal gland Status: Chronic Assessment and Plan: 12/10/2024: * Artificial tears ordered Plan This pt was examined today sitting at the bedside in chair in no acute distress. She remains on supplemental oxygen at this time. She is being followed by Pulmonology and discussed and being treated with oralLevaquin. Repeat CXR on 12/12 did not shows no interval change. patient is not requiring any oxygen at rest however with exertion patient is requiring 1L, patient had apnea link last night with 4L,and her saturation good, last night patient had apnea link with 2L, the results were reviewed by Dr. Queen results showed hypoxia and recommended to repeat apnea link tonight with 4L, repeat apnea link with 4L, showed better oxygen saturation and will require home O2 evaluation before going home, her cardio ECHO showed normal LV function with grad I diastolic dysfunction, She has no new complaints today other than no BM for few days, which is normal for the patient, will give miralax, and no new symptoms. will CPM and monitor. patient was seen by Dr. Queen, her chocolate maker will monitor patient one more day, patient will have home O2 evaluation, will discharge tomorrow. Subjective Date/time seen: 12/16/24 12:18 Interval history: This pt was examined today sitting at the bedside in chair in no acute distress. She remains on supplemental oxygen at this time. She is being followed by Pulmonology and discussed and being treated with oralLevaquin. Repeat CXR on 12/12 did not shows no interval change. patient is not requiring any oxygen at rest however with exertion patient is requiring 1L, patient had apnea link last night with 4L,and her saturation good, last night patient had apnea link with 2L, the results were reviewed by Dr. Queen results showed hypoxia and recommended to repeat apnea link tonight with 4L, repeat apnea link with 4L, showed better oxygen saturation and will require home O2 evaluation before going home, her cardio ECHO showed normal LV function with grad I diastolic dysfunction, She has no new complaints today other than no BM for few days, which is normal for the patient, will give miralax, and no new symptoms. will CPM and monitor. patient was seen by Dr. Queen, her chocolate maker will monitor patient one more day, patient will have home O2 evaluation, will discharge tomorrow. Review of Systems Review of Systems: All systems reviewed & are unremarkable except as noted in HPI and below Exam Narrative: Appears chronically ill Patient is comfortable, NAD HEENT: eyes are clear and none icteric LUNGS: Bilateral poor air entry HEART: RR S1S2 ABD: BS+, Soft and nontender Lower extremities: no edema SKIN: nonjaundiced Neuro: grossly intact. Objective Data Vital Signs Vital Signs: Vital Signs - 24 hr 12/15/24 14:00 12/15/24 16:32 12/15/24 16:43 Temperature 36.7 C Pulse Rate 81 75 72 Respiratory Rate 22 H 20 20 Blood Pressure 142/83 H Pulse Oximetry 93 Oxygen Delivery Oxygen Flow Rate 12/15/24 20:00 12/15/24 20:02 12/15/24 20:02 Temperature 36.2 C L Pulse Rate 70 77 76 Respiratory Rate 18 12 18 Blood Pressure 153/62 H Pulse Oximetry 94 92 Oxygen Delivery BiPAP Oxygen Flow Rate 12/15/24 20:12 12/15/24 21:42 12/15/24 23:30 Temperature Pulse Rate 76 70 Respiratory Rate 18 Blood Pressure Pulse Oximetry 98 94 Oxygen Delivery Nasal Cannula Oxygen Flow Rate 1 12/16/24 05:11 12/16/24 08:09 12/16/24 08:09 Temperature 36.3 C L Pulse Rate 60 68 68 Respiratory Rate 12 20 20 Blood Pressure 129/67 Pulse Oximetry 93 96 Oxygen Delivery Nasal Cannula Oxygen Flow Rate 1 12/16/24 09:20 Temperature Pulse Rate Respiratory Rate Blood Pressure Pulse Oximetry 94 Oxygen Delivery Nasal Cannula Oxygen Flow Rate 1 Intake/Output Intake/Output: Intake & Output 12/13/24 12/14/24 12/15/24 12/16/24 23:59 23:59 23:59 23:59 Intake Total 1518 1660 2220 890 Balance 1518 1660 2220 890 Meds/Results Medications: Active Medications Generic Name Dose Route Start Last Admin Trade Name Freq PRN Reason Stop Dose Admin Acetaminophen 650 mg 12/09/24 16:10 Acetaminophen 325 Mg Tablet PO Q4H PRN Mild Pain (1-3) or Fever Albuterol 2.5 mg 12/11/24 17:05 Albuterol Sulfate Neb 2.5 Mg/3 Ml Inh INHALATION Q6HRT PRN Wheezing Albuterol/Ipratropium 3 ml 12/13/24 12:00 12/16/24 08:06 Ipratropium 0.5 Mg/Albuterol Sulfate 2.5 Mg Ampul.Neb 3 Ml INHALATION 3 ml [id number] DONNA Administration Amlodipine Besylate 10 mg 12/10/24 09:00 12/16/24 09:14 Amlodipine Besylate 10 Mg Tablet BY MOUTH 10 mg DAILY DONNA Administration Artificial Tears 1 drop 12/10/24 08:48 12/12/24 21:23 Artificial Tears Ophth Soln 15 Ml Bottle EACH EYE 1 drop QID PRN Administration Dry Eye(s) Docusate Sodium 100 mg 12/14/24 09:47 12/14/24 10:06 Docusate Sodium 100 Mg Capsule PO 100 mg Q12H PRN Administration Constipation Enoxaparin Sodium 40 mg 12/10/24 09:00 12/16/24 09:14 Enoxaparin 40 Mg/0.4 Ml Syringe SUB-Q 40 mg DAILY DONNA Administration Guaifenesin 1,200 mg 12/09/24 21:00 12/16/24 09:14 Guaifenesin 12 Hr 600 Mg Tabcr PO 1,200 mg Q12HR DONNA Administration Levofloxacin/Dextrose 750 mg in 150 mls @ 100 mls/hr 12/15/24 09:00 12/15/24 10:42 Levaquin 750 Mg/D5w 150 Ml IVPB 12/21/24 10:29 Infused Q48HR DONNA Infusion Vancomycin HCl 1,250 mg in 250 mls @ 166.667 mls/hr 12/15/24 02:00 12/16/24 03:36 Vancomycin 1,250 Mg/Ns 250 Ml IVPB 12/21/24 23:59 Infused Q12H DONNA Infusion Mupirocin 1 applic 12/12/24 09:00 12/16/24 09:15 Mupirocin 2% Oint 22 Gm Tube EACH NARE 12/16/24 21:01 1 applic Q12HR DONNA Administration Radiology Results: ITS Impressions Chest CTA 12/09/24 14:51 IMPRESSION: 1. No pulmonary embolism. 2. Severe emphysema with extensive airspace disease in the right upper lobe including dense consolidation in the suprahilar region consistent with pneum onia. Possible additional small region of pneumonia versus atelectasis at the peripheral left upper lobe. 3. Very small right pleural effusion. Chest X-Ray 12/16/24 08:50 IMPRESSION: 1. Labs Labs: Laboratory Results - last 24 hr 12/16/24 04:50 WBC 6.9 RBC 3.75 L Hgb 11.0 L Hct 36.1 L MCV 96.3 MCH 29.3 MCHC 30.5 L RDW 13.6 Plt Count 271 MPV 9.3 Immature Gran % (Auto) 2.8 H Neut % (Auto) 67.3 Lymph % (Auto) 16.8 L [place] % (Auto) 8.1 Eos % (Auto) 4.4 Baso % (Auto) 0.6 Lymph # (Auto) 1.16 [place] # (Auto) 0.6 Eos # (Auto) 0.3 Baso # (Auto) 0.0 Abs Immat Gran (auto) 0.19 H Absolute Neuts (auto) 4.6 Absolute Nucleated RBC 0.000 Nucleated RBC % 0.0 Sodium 134 L Potassium 4.6 Chloride 97 L Carbon Dioxide 36 H Anion Gap 1 L BUN 12 Creatinine 0.48 L Estim Creat Clear Calc 56 Estimated GFR > 60 Glucose 72 Calcium 8.5 Magnesium 2.2 Total Bilirubin < 0.1 L AST 31 ALT 22 Alkaline Phosphatase 53 Total Protein 5.5 L Albumin 2.9 L Quality VTE Prophylaxis VTE prophylaxis: pharmacologic ordered
[2024-12-16] MEDS: ARTIFICIAL TEARS OPHTH SOLN 15 ML BOTTLE 1 DROP EACH EYE ×2 (13:39→21:52)
[2024-12-16] MEDS: VANCOMYCIN HCL 1,000 MG in SODIUM CHLORIDE 0.9% IV 250 ML 250 MG IVPB (16:51)
[2024-12-17] VITALS (14 sets, daily range): BP systolic 123–162; BP diastolic 72–83; PULSE 64–119; RESP 18–20; TEMP 36.3–36.4; O2SAT 84–100
[2024-12-17] MEDS: VANCOMYCIN HCL 1,000 MG in SODIUM CHLORIDE 0.9% IV 250 ML 200 MG IVPB (03:40)
[2024-12-17 06:09] LABS: Hematocrit 39.3 % (37.0-47.0); Hemoglobin 12.0 g/dL (12.0-15.0); Immature Granulocyte Percent A 2.3 % (0-0.5); Immature Platelet Fraction Pct 2.1 % (0.9-11.2); Lymphocytes Absolute Auto 1.00 K/mm3 (0.9-3.2); Mean Corpuscular HGB Conc 30.5 g/dl (32-36); Mean Corpuscular Hemoglobin 29.1 pg (26-34); Mean Corpuscular Volume 95.2 fl (80-100); Nucleated Red Blood Cells Absolute Auto 0.000 K/mm3 (0.0-0.012); Nucleated Red Blood Cells Perc 0.0 % (0.0-0.2); Platelet Count Result 284 k/mm3 (150-375); Red Blood Count 4.13 M/mm3 (4.2-5.4); White Blood Count 6.4 K/mm3 (4.5-10.0)
[2024-12-17 06:53] LABS: Alanine Aminotransferase 36 U/L (6-35); Albumin Level 2.8 g/dL (3.5-5.1); Alkaline Phosphatase 54 U/L (38-126); Anion Gap -1 mmol/L (4-12); Aspartate Amino Transferase 46 U/L (14-36); Bilirubin,Total 0.3 mg/dL (0.2-1.3); Blood Urea Nitrogen 10 mg/dL (7-17); Calcium 8.4 mg/dL (8.4-10.2); Carbon Dioxide 36 mmol/L (22-30); Chloride 98 mmol/L (98-107); Estimated CRCL calculation 68 ml/min; Estimated Glomerular Filt Rate > 60; Glucose 74 mg/dL (65-110); Magnesium 2.3 mg/dL (1.6-2.3); Potassium 4.8 mmol/L (3.4-5.0); Sodium 133 mmol/L (137-145); Total Protein 5.4 g/dL (6.3-8.2)
--- NOTE | 2024-12-17 08:12 | PCPTNOTE ---
Attempted to see patient for PT, however patient declined due to anticipated discharge this date.
[2024-12-17] MEDS: guaiFENesin 12 HR 600 MG TABCR 1200 MG PO (08:57)
[2024-12-17] MEDS: levoFLOXacin 750 MG/D5W 150 ML 750 MG/150 ML BAG 100 MG IVPB (08:58)
[2024-12-17] MEDS: IPRATROPIUM 0.5 MG/ALBUTEROL SULFATE 2.5 MG AMPUL.NEB 3 ML INHALATION ×2 (09:01→11:34)
--- NOTE | 2024-12-17 09:16 | P.PNPL_ITS ---
Progress Note: A&P Assessment and Plan (1) Pneumonia: Code(s): J18.9 - Pneumonia, unspecified organism Status: Acute Assessment and Plan: Patient presents with an acute respiratory illness starting 12/07/2024 with progressive worsening weakness, shortness of breath, dyspnea on exertion. CT scan shows new dense consolidations in the right upper lobe, right middle lobe and left upper lobe compared to 05/06/2021. Patient was started on Solu-Medrol, bronchodilators, ceftriaxone and azithromycin and feels improved. PSI score 110 consistent with severe community-acquired pneumonia. 12/11/2024: The patient tells me she is breathing better today, 50-60% back to her normal. Overall her body feels better. She started producing yellow phlegm today and this helps her breathe when she expectorates. She is on 1 L nasal cannula saturation 96%. Plan: Blood cultures are pending. I will send sputum culture, COVID, RSV, influenza RT PCR, urine for Legionella antigen, urine for pneumococcal antigen, extended respiratory pathogen panel, serum mycoplasma IgM. I will check CRP and procalcitonin on 12/11/2024. Patient appears to be clinically responding to ceftriaxone and azithromycin, both day 2 and I will continue. Currently the patient is on Solu-Medrol 60 q.12 hours. I hear no wheezing and I will change her to Solu-Cortef 50 q.6 hours for severe community-acquired pneumonia. I will order an echocardiogram for 12/12/2024. I will repeat a chest x-ray on 12/12. 12/12/24: Overall the patient tells me she is better. She feels she has 60-70% back to her normal. She has no rest shortness of breath. She has dyspnea on exertion with when using walker and walking to the bathroom. She denies cough, phlegm or hemoptysis. She is afebrile. White blood cell count 8.2, creatinine 0.42, BNP 770, procalcitonin 0.2, CRP 4.5. Chest x-ray today demonstrates no change in her diffuse interstitial alveolar infiltrates right greater than left. MRSA swab is positive and patient started on vancomycin. Plan: Patient with a history of Pseudomonas that was pansensitive on 09/29/2019. MRSA is positive. Will change patient's ceftriaxone and azithromycin to Levaquin and continue vancomycin. Patient has been on systemic steroids since 12/09 (day 4) she remains hemodynamically stable, oxygenation is stable, Chest x-ray stable, will decrease Solu-Cortef to 25 q.6 today. Blood cultures negative. Sputum culture, echocardiogram, respiratory pathogen panel, urine Legionella, urine pneumococcal antigen, serum mycoplasma IgM pending. Later in the day patient had an echocardiogram with an LVEF of 60-65%, grade 1 diastolic dysfunction, normal right ventricular size and function, normal right atrial size, trace mitral regurg, no tricuspid regurg. 12/13/2024: patient tells me she continues to improve. States he is 80% back to her normal. She has no cough, no phlegm, no hemoptysis. She has no shortness of breath at rest she has dyspnea on exertion when she walks across the room. When I enter the room she was on 1 L nasal cannula saturations 98%. I decreased her to room air and after 4 minutes her saturations were 87% placed her back on 1 L and her saturations were 97%. She is afebrile. White blood skull count 6.8, creatinine 0.57. Yesterday she was positive 1.4 L and cumulative she is positive 4.7 L since admission. Weight today is 46.3. Yesterday she walked 92 ft with physical therapy on 2 L her saturation decreased into the low 80s. Increase to 4 L and patient recovered to 99%. Plan: patient continues to improve. Continue levofloxacin, day 2 and vancomycin, day 2 ( total antibiotics day 4). Will continue these IV antibiotics while she is in the hospital. Blood cultures negative to date. Sputum culture, respiratory pathogen panel, urine Legionella, urine pneumococcal antigen, serum mycoplasma IgM pending. 12/16/2024: Patient tells me she continues to improved and is now breathing back to her normal. She denies cough, phlegm, wheezing or hemoptysis. She is afebrile. Room air saturations 97%. white blood cell count 6.9, creatinine 0.48. Chest x-ray compared to 12/12/2024 per my read with mild improvement right upper lobe, mild worsening bilateral lower lobes, no pleural effusions. Blood cultures negative today. Respiratory pathogen panel negative. Serum mycoplasma IgM normal at less than 770. Urine Legionella negative. You minute urine pneumococcal pending. plan: I will levofloxacin day 5, vancomycin day 5, total antibiotics day 7. improvement right upper/mid lung, mild worsening bilateral lower lobes, no pleural effusions. 12/17/24: Patient continues to improve and tells me she has 100% back to her normal, no cough, no phlegm, no shortness of breath at rest, no dyspnea on exertion across the room. She is afebrile. She is on 1 L nasal cannula saturations 98%. White blood cell count 6.4, creatinine 0.38. Her weight is 46.6. She tells me she is ready to go home today. Patient states her home noninvasive ventilator mask broke last night. From a pulmonary perspective patient is ready to be discharged on these pulmonary medications: Linezolid 600 mg p.o. q.12 hours last dose on 12/21/2024 Levofloxacin 750 mg p.o. Q 48 hours, last dose on 12/21/2024. Wixela 250-50 1 puff b.i.d. Tiotropium bromide 18 mcg 1 puff q.day Rescue albuterol 2 puffs q.4 hours p.r.n. shortness of breath or wheezing Guaifenesin 1200 mg p.o. b.i.d. Cornet flutter valve q.4 hours while awake. When she naps or sleeps home noninvasive ventilator through [employer] breath rate is 10, tidal volume 520, minimum EPAP 7, maximal EPAP 10, minimum pressure support 8, maximal pressure support 20. inspiratory time 0.6. Rise time 2.0, with 4 L bleed in. Oxygen at rest and with activity per formal home O2 assessment which I have ordered. Will call her [email or web address] to get her new home noninvasive ventilator supplies today. The patient also will call the [facility]. follow-up in the Pulmonary Clinic 4 weeks. I have given her my business card and informed our assistant manager pt. Discussed with Dr. Gerber, will sign off, call with questions. (2) COPD (chronic obstructive pulmonary disease): Code(s): J44.9 - Chronic obstructive pulmonary disease, unspecified Status: Acute Assessment and Plan: GOLD grade 4 group B COPD COPD diagnosed in 1999 with chronic hypoxic and hypercarbic respiratory failure on noninvasive ventilation and on home oxygen 2.0 L 24-7. Tobacco use (40 PY quit 2010). 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 PFTs 07/16/2020 with an FEV1 of 0.41 L, 24% predicted, ratio 28%, air trapping, hyperinflation and a moderately decreased DLCO when adjusted for alveolar volume. CTA on 05/06/2021 with severe panlobular emphysema in all lung benavidez. Maintained on triple inhalers. In patient exacerbation 05/06/2021 through 05/11/2021, Outpatient exacerbation 06/15/2021. outpatient COPD Exacerbation 11/03/2023. 01/10/2022 with a white blood cell count of 6.7, eosinophils 0.6%=40/uL. 07/18/2022: White blood cell count 5.6, eosinophils 0.4% equal 22 per micro L. 06/26/2023: White blood cell count 5.6, eosinophils 0.2%=11/uL. Patient has been on noninvasive ventilation at night since 05/11/2021. Patient states at baseline she can walk 1/4 block, she can clean her house, she has no chronic cough, no chronic phlegm production, does not wheeze. ? she is maintained on Advair 500-50 at 1 puff b.i.d. and tiotropium bromide 18 mcg at 1 puff q.day. CAT score 21 on 06/15/2021.? 12/11/24: Patient has no wheezing at this time. She has a pneumonia and possible COPD exacerbation. currently she is on 1 L nasal cannula saturations 96%. Plan: Continue treatment for pneumonia as above. A change her steroids to Solu-Cortef 50 q.6 for community-acquired pneumonia dose. I will place her on DuoNebs q.6 hours, Mucomyst 200 q.6 hours, continue guaifenesin 1200 p.o. b.i.d. to help her expectorate. Goal saturation 90-94%. 12/12/24: No wheezing at this time. she has no cough and no phlegm production today. currently tolerating 1 L nasal cannula. Plan: Solu-Cortef 25 q.6, DuoNebs q.6, Mucomyst q.6 and guaifenesin 1200 p.o. b.i.d. 12/13/24: No wheezing. No cough and no phlegm production. Tolerating 1 L at rest. Plan: I will discontinue Solu-Cortef today (day 5), I will change DuoNebs and Mucomyst to q.4 hours while awake. Continue guaifenesin 1200 p.o. b.i.d.. Continue Cornet flutter valve. 12/16/2024: Patient states she is breathing at her baseline. Plan: Continue DuoNebs q.4 hours. I will discontinue Mucomyst today. Continue guaifenesin 1200 p.o. b.i.d. and continue flutter valve. 12/17/24: Patient states she is breathing at her baseline. Plan: Patient will be discharged today on her home medical regimen of Wixela, Spiriva, rescue albuterol and guaifenesin. (3) Chronic respiratory failure with hypoxia and hypercapnia: Code(s): J96.11 - Chronic respiratory failure with hypoxia; J96.12 - Chronic respiratory failure with hypercapnia Status: Acute Assessment and Plan: Patient with chronic hypoxemic respiratory failure requiring 2 L at rest, 3 L with activity and 5 L bleed in with her noninvasive ventilator. Patient use nocturnal noninvasive ventilation for chronic hypercarbic respiratory failure with the AVAPS AE mode through [employer]. Attempted to place her on hospital BiPAP machine last night but she could not get enough air and could not tolerate it. Download from [employer] from 08/12/2024 through 10/15/2024: Patient is on AVAPS- AE, breath rate is 10, tidal volume 520, minimum EPAP 7, maximal EPAP 10, minimum pressure support 8, maximal pressure support 20. inspiratory time 0.6. Rise time 2.0.? % of days used 4 more hours is 98%.? Average usage on days used is 6 hour s25 minutes.? median tidal volume is 678 mL, median minute ventilation is 6.8, Fifth percentile EPAP 6.8. median EPAP is 9.2, median peak inspiratory pressures 17.8,? average unintentional leak is 1.0. ??I interpret this download as excellent compliance with adequate pressures and low leak.? Of note the patient says she has not been able to wear the machine the last 2 weeks because it has been too hot in her trailer. Plan: I placed the patient on the hospital noninvasive ventilator with the AVAPS mode and adjusting settings to match her home settings and comfort. This resulted in a rate of 10, tidal volume 520, EPAP 7, minimal inspiratory pressure 8, maximal inspiratory pressure 25, inspiratory time 0.8, rise of 1 and 36% FiO2. I have told the family to bring her home machine in so we can eventually use this in the hospital. 12/12/24: Patient wore the hospital noninvasive ventilator with the AVAPS mode for few hours but said that the mask did not fit properly and the alarms kept her awake. She slept 2 L nasal cannula on. I placed the mask on her this morning and adjusted the mask and she said the machine and mask felt good. Plan: If the patient is able to bring her home noninvasive ventilator she can wear this this evening with 4 L bleed in. Will obtain overnight oximetry on her home noninvasive ventilator. Otherwise patient should wear hospital noninvasive ventilator with the AVAPS mode and settings above with an overnight oximetry. 12/13/24: Patient wore home noninvasive ventilator AVAPS-AE, breath rate is 10, tidal volume 520, minimum EPAP 7, maximal EPAP 10, minimum pressure support 8, maximal pressure support 20. inspiratory time 0.6. Rise time 2.0, with 4 L bleed in and had an overnight oximetry with recording duration of 6 hours and 18 minutes. Average saturation 96%. Low saturation 92%. Time with saturation less than or equal to 88% was 0 minutes. Oxygen desaturation index 0. Plan: Will continue patient's home noninvasive ventilator. Will perform overnight oximetry on her home noninvasive ventilator with 2 L bleed in. 12/14/2024: Overnight oximetry on home noninvasive ventilator with 2 L bleed in: Recording duration 5 hours and 50 minutes. Average saturation 94%. Low saturation 66%. Time with saturation less than or equal to 88% was 7 minutes. Oxygen desaturation index 1.9. 12/16/2024. Patient states she did well last night on her home noninvasive ventilator with 4 L bleed in. Plan: Continue home noninvasive ventilator with 4 L bleed in. 12/17/2024: Patient states that her home noninvasive ventilator mask was broken last night so she could not use her home machine. Plan: Patient said she would call the home [employer] company to meter at home today to give her new supplies. We will call the [email or web address] [facility] to confirm. Subjective Date/time seen: 12/17/24 09:16 Interval history: 12/11/2024: This is a new pulmonary consult for COPD exacerbation and noninvasive ventilation. Patient followed in the Pulmonary Clinic and last seen on 09/11/2024: Summary of that visit: Download 11/17/2023 through 02/14/2024 with poor compliance at 31%, adequate pressures and high leak.? I called the patient and she says she has been wearing the machine every night whereas the download records only 1 hour.? DME notified 04/15/2024:? Patient with green and yellow phlegm and SOB.? I treated her for COPD exacerbation prescribed Z-pack and prednisone x5 days. 06/18/2024: Overnight oximetry on noninvasive ventilator with 5 L bleed in with adequate saturations. Patient has had no hospitalizations or exacerbations since 04/15/2024. Overall the patient tells me she is doing pretty good today. She is clinically stable with dyspnea on exertion room to room, her M MRC grade is 3. She can do some cleaning but is no longer going to congregation. The patient is taking Wixela 500-50 at 1 puff q.day, Spiriva 18 mcg a day and rescue albuterol which she uses 1 time about every 3 months. The patient is using 2 L nasal cannula at rest with saturations 96-97. She is using 3 L with activity and does not measure her home oxygen. The patient is not smoking or exposed to secondhand smoke. Patient's CAT score today has improved from 14 to a value of 7. Patient states she is eating better and has gained 2 lb from 95 lb to 97 lb. The patient is wearing her home noninvasive ventilator every night with a fullface mask and says she sleeps good from 10-5 a.m.. She is wearing 5 L bleed in with this. She assures me she is wearing the every mask every night and I have told her her machine is not transmitting data properly but she says she is wearing her mask and machine every night. Download from?06/03/2024 through 08/12/2024 from [employer]. Patient is on AVAPS- AE, breath rate is 10, tidal volume 520, minimum EPAP 7, maximal EPAP 10, minimum pressure support 8, maximal pressure support 20. inspiratory time 0.6. Rise time 2.0.? % of days used is 1.4%. Days used 4 more hours is 1.4%.? Average usage on days used is 6.4 hours.? Average tidal volume is 461 mL, average minute ventilation is 8.6, average EPAP is 7.3, average peak inspiratory pressures 16.3,? average unintentional leak is 17.7. ??I interpret this download as poor compliance with adequate pressures and high leak.? Of note on 07/31/2024 the [email or web address] performed a home visit which stated the patient was using her machine with a rate of 12, tidal volume 470, 5 L O2 bleed in and the patient told them the machine helps her breathe at night. Patient states she uses the machine every night but it is not tracking. Plan: continue Wixela but change dose to 250-50 at 1 puff twice a day, continue Spiriva 18 mcg a day and rescue albuterol. Continue her noninvasive ventilator with the AVAPS mode every night With 5 L bleed in. Continue 2 L at rest, 3 L with activity Patient was in her usual state of health on 12/06. On 12/07/2024 she developed a cough, shortness of breath and weakness. Symptoms progressed and she presented to the emergency department on 12/09/2024. Blood pressure 133/70, respirations 34, heart rate 95, saturations on 2 L nasal cannula 96%. She had wheezing and decreased breath sounds. White blood cell count 11.4 with eosinophils 0.1% creatinine 0.57. ABG on 1 L nasal cannula 7.53/44 / oxygen was not measured. Patient had a CT angiogram of the chest Compared to 05/06/2021 that showed severe panlobular emphysema dense infiltrate with new consolidation right upper lobe, right middle lobe and left upper lobe. patient was given Solu- Medrol, bronchodilators, azithromycin and ceftriaxone. 12/11/2024: The patient tells me she is breathing better today, 50-60% back to her normal. Overall her body feels better. She started producing yellow phlegm today and this helps her breathe when she expectorates. She is on 1 L nasal cannula saturation 96%. They attempted to place her on hospital BiPAP machine last night but she could not get enough air and could not tolerate it. I placed the patient on the hospital noninvasive ventilator with the AVAPS mode And adjusting settings to match her home settings and comfort. This resulted in a rate of 10, tidal volume 520, EPAP 7, minimal inspiratory pressure 8, maximal inspiratory pressure 25, inspiratory time 0.8, rise of 1 and 36% FiO2. 12/12/24: Overall the patient tells me she is better. She feels she has 60-70% back to her normal. She has no rest shortness of breath. She has dyspnea on exertion with when using walker and walking to the bathroom. She denies cough, phlegm or hemoptysis. She is afebrile. White blood cell count 8.2, creatinine 0.42, BNP 770, procalcitonin 0.2, CRP 4.5. Chest x-ray today demonstrates no change in her diffuse interstitial alveolar infiltrates right greater than left. MRSA swab is positive and patient started on vancomycin. Patient wore the hospital noninvasive ventilator with the AVAPS mode for few hours but said that the mask did not fit properly and the alarms kept her awake. She slept 2 L nasal cannula on. I placed the mask on her this morning and adjusted the mask and she said the machine and mask felt good. Later in the day patient had an echocardiogram with an LVEF of 60-65%, grade 1 diastolic dysfunction, normal right ventricular size and function, normal right atrial size, trace mitral regurg, no tricuspid regurg. 12/13/2024: patient tells me she continues to improve. States he is 80% back to her normal. She has no cough, no phlegm, no hemoptysis. She has no shortness of breath at rest she has dyspnea on exertion when she walks across the room. When I enter the room she was on 1 L nasal cannula saturations 98%. I decreased her to room air and after 4 minutes her saturations were 87% placed her back on 1 L and her saturations were 97%. She is afebrile. White blood skull count 6.8, creatinine 0.57. Yesterday she was positive 1.4 L and cumulative she is positive 4.7 L since admission. Weight today is 46.3. Yesterday she walked 92 ft with physical therapy on 2 L her saturation decreased into the low 80s. Increase to 4 L and patient recovered to 99%. Patient wore home noninvasive ventilator AVAPS-AE, breath rate is 10, tidal volume 520, minimum EPAP 7, maximal EPAP 10, minimum pressure support 8, maximal pressure support 20. inspiratory time 0.6. Rise time 2.0, with 4 L bleed in and had an overnight oximetry with recording duration of 6 hours and 18 minutes. Average saturation 96%. Low saturation 92%. Time with saturation less than or equal to 88% was 0 minutes. Oxygen desaturation index 0. Inpatient consult services will resume 12/16. 12/16/2024: Patient tells me she continues to improved and is now breathing back to her normal. She denies cough, phlegm, wheezing or hemoptysis. She is afebrile. Room air saturations 97%. white blood cell count 6.9, creatinine 0.48. Chest x-ray compared to 12/12/2024 per my read with improvement right upper/mid lung, mild worsening bilateral lower lobes, no pleural effusions. 12/17/24: Patient continues to improve and tells me she has 100% back to her normal, no cough, no phlegm, no shortness of breath at rest, no dyspnea on exertion across the room. She is afebrile. She is on 1 L nasal cannula saturations 98%. White blood cell count 6.4, creatinine 0.38. Her weight is 46.6. She tells me she is ready to go home today. DATA: 12/13/24: home noninvasive ventilator AVAPS-AE, breath rate is 10, tidal volume 520, minimum EPAP 7, maximal EPAP 10, minimum pressure support 8, maximal pressure support 20. inspiratory time 0.6. Rise time 2.0, with 4 L bleed in and had an overnight oximetry with recording duration of 6 hours and 18 minutes. Average saturation 96%. Low saturation 92%. Time with saturation less than or equal to 88% was 0 minutes. Oxygen desaturation index 0. 12/12/24: Echo Summary 1. Complete two-dimensional, color flow and Doppler transthoracic echocardiogram is performed. 2. Left ventricular chamber dimension is normal. 3. Left ventricular systolic function is normal, estimated at 60-65. 4. The left ventricular diastolic function is grade I diastolic dysfunction. 5. E/e' 9 is minimally elevated. 6. There is moderate aortic valve sclerosis. 7. There is trace mitral valve regurgitation. Right Ventricle Right ventricular chamber dimension is normal. Right ventricular systolic function is normal and with TAPSE 1.7 cm. Left Atria Left atrial chamber dimension is normal. Right Atria Right atrial chamber dimension is normal. 12/09/24: EXAMINATION: CTA chest PE protocol INDICATION: Shortness of breath COMPARISON: 05/06/2021 FINDINGS: No pulmonary emboli. Severe emphysema. There is septal line thickening and fluid filling of the cystic airspaces in the right upper lobe with dense region of consolidation in the suprahilar region consistent with pneumonia. Is also a small region of peripheral consolidation along a band of scarring in the left upper lobe which could also represent atelectasis or pneumonia. Very small right pleural effusion. Heart size is normal. Atherosclerotic coronary artery calcific location. No pericardial effusion. Thoracic aorta is normal in caliber with no dissection. No pathologically enlarged thoracic lymphadenopathy. Likely benign 6 mm low-attenuation nodule in the right thyroid lobe. Multiple splenic calcific lesions consistent with old granulomatous disease. Couple small regions of cortical scarring at the left kidney consistent with sequela of prior infection or infarction. Visualized upper abdomen is otherwise unremarkable. Mild thoracic spondylosis. IMPRESSION: 1. No pulmonary embolism. 2. Severe emphysema with extensive airspace disease in the right upper lobe including dense consolidation in the suprahilar region consistent with pneumonia. Possible additional small region of pneumonia versus atelectasis at the peripheral left upper lobe. 3. Very small right pleural effusion. 06/18/2024: Overnight oximetry on noninvasive ventilator with 5 L bleed in. Recording duration 2 hours and 38 minutes. Basal saturation 96.6%. High saturation 99%. Low saturation 90%. Time with saturation less than or equal to 88% was 0 minutes. Oxygen desaturation index is 0. I will continue noninvasive ventilator with 5 L bleed in at night. 05/08/2023: Alpha 1 anti trypsin genotype MM, normal ??05/11/2021:? Home O2 assessment.? Rest room air saturations 85%, rest 1 L nasal cannula saturation 87%, rest 2 L nasal cannula saturation 94%, ambulation 2 L saturation 90%.? Patient requires 2 L with rest and with activity. ?05/06/21 EXAMINATION: CTA chest PE protocol ??INDICATION: SOB. ??Comparison is made to prior examination from 02/08/2017. ??FINDINGS:? Pulmonary arteries are well opacified and without intraluminal filling defects. ? No thoracic aortic dissection.? There is severe emphysema. Dependent subsegmental atelectasis.? Some endobronchial debris in the bronchus intermedius.? There is no mediastinal, hilar or axillary lymphadenopathy. ? There is no pneumothorax. ? Heart normal in size. ? There is mild coronary arterial calcification, arterial sclerosis.? Upper abdomen is unremarkable. ? There is thoracic spondylosis without osteoblastic or osteolytic lesions identified. ??IMPRESSION: ??1.? Dependent subsegmental atelectasis. ??2.? Some endobronchial debris. ??3.? Severe emphysema. ??4.? No pulmonary emboli. ?? ?07/16/2020: I have a report from PFTs at [facility]? [place] [facility] ??This is a pulmonary function test with pre and post-bronchodilator spirometry, plethysmography and diffusing capacity.? ?Findings: ?Spirometry: ? There is decreased maximal expiratory airflow at all lung volumes with the concave expiratory flow tracing.? The contour of the inspiratory flow tracing is normal.? The pre bronchodilator FVC is 1.47 L, 63% predicted.? The pre bronchodilator FEV1 is 0.41 L, 24% predicted.? The pre bronchodilator FEV1:? FVC ratio is 28%.? The post bronchodilator FVC is 1.86 L, representing a 27% increase.? The post bronchodilator FEV1 is 0.47 L, representing a 16% increase.? The post bronchodilator FEV1: FVC ratio is 25%.? ?Plethysmography:? Total lung capacity is 6.11 L, 154% predicted.? The functional residual capacity is 5.34 L, 216% predicted.? The residual volume is 4.64 L, 281% predicted.? ?Plethysmography:? The diffusing capacity unadjusted for hemoglobin and carboxyhemoglobin is 3.0, 21% predicted.? The diffusing capacity adjusted for alveolar volume is 1.79, 53% predicted. ?Impression: There is a very severe obstructive abnormality with significant improvement after inhaling a single dose of albuterol. The increase in residual volume is consistent with air trapping from an obstructive abnormality.? Hyperinflation is present as demonstrated by the increase in functional residual capacity and total lung capacity and is consistent with an obstructive abnormality. The diffusing capacity unadjusted for hemoglobin and carboxyhemoglobin is severely decreased and remains moderately decreased when adjusted for alveolar volume. ?There are no prior studies for comparison ? ??09/25/2003 report no raw data available ??TEST: PFT ??FVC, FEV1, GRB1% decreased. There is acute bronchodilator response. Lung volumes are increased. RAW is increased. DLCO is decreased. ??Impression: Severe obstructive ventilatory defect with acute bronchodilator response. Decreased DLCO. ?08/23/1999: Chest X ray report: ??CHEST ??Indication: Fever. ??Technique: PA and lateral views. ??The lungs are prominently hyperinflated, with flattening of the diaphragm and increased retrosternal air space, consistent with chronic obstructive pulmonary disease. ??There are some increased interstitial markings in the lungs, particularly in the right mid and lower lung field which may be chronic. One cannot exclude some interstitial pneumonitis. Correlation clinically and comparison with prior chest radiographs is recommended. No pulmonary consolidation is evident. There is no pleural effusion. No pulmonary vascular congestion or any apparent adenopathy or pneumothorax is noted. ??The cardiac and mediastinal silhouettes are unremarkable. There is mild aortic calcification. ??IMPRESSION: CHRONIC OBSTRUCTIVE PULMONARY DISEASE. ??INCREASED INTERSTITIAL MARKINGS, RIGHT MID AND LOWER ??LUNG BENAVIDEZ ? RECOMMEND COMPARISON WITH PRIOR ??CHEST RADIOGRAPHS AND CLINICAL CORRELATION TO ??DIFFERENTIATE ACUTE FROM CHRONIC. Review of Systems Constitutional: Constitutional: Reports no additional constitutional complaints Eyes: Eyes: Reports no additional eye complaints ENT: Reports system reviewed and no additional complaints, except as documented Cardiovascular: Cardiovascular: Reports no additional cardiovascular complaints Respiratory: Respiratory: Reports no additional respiratory complaints Gastrointestinal: Gastrointestinal: Reports no additional gastrointestinal complaints Musculoskeletal: Musculoskeletal: Reports no additional musculoskeletal complaints Neurologic: Reports system reviewed and no additional complaints, except as documented Psychiatric: Psychiatric: Reports no additional psychiatric complaints Endocrine: Endocrine: Reports no additional endocrine complaints Hematologic/Lymphatic: Hematologic/Lymphatic: Reports no additional hematologic/lymphatic complaints Allergic/Immunologic: Allergic/Immunologic: Reports no additional allergic/immunologic complaints Exam Const: General: cooperative, comfortable and no acute distress Orientation/consciousness: oriented to person, oriented to place and oriented to time Other: Patient is extremely thin. HENMT: Head: normal to inspection Ears: hearing grossly normal bilaterally Eyes: General: appearance normal, both eyes and all related structures Neck: Neck: normal visual inspection Chest: Chest palpation & inspection: normal inspection of the chest Resp: Effort & Inspection: normal respiratory effort and able to speak in complete sentences Auscultation: no crackles, no rales, no rhonchi, no wheezes and diminished lung sounds Other: Diminished lung sounds Throughout, no wheezes, Cardio: Jugular venous distension: no JVD GI: Inspection: normal to inspection Skin: General skin exam: normal color Neuro: General: oriented to person, oriented to place and oriented to time Extrem: General: normal to inspection and no edema Psych: Appearance: grossly normal Objective Data Vital Signs Vital Signs: Vital Signs - 24 hr 12/16/24 09:20 12/16/24 14:00 12/16/24 16:23 Temperature 36.5 C Pulse Rate 78 70 Respiratory Rate 18 20 Blood Pressure 143/71 H Pulse Oximetry 94 96 96 Oxygen Delivery Nasal Cannula Nasal Cannula Oxygen Flow Rate 1 1 12/16/24 16:23 12/16/24 16:31 12/16/24 20:00 Temperature Pulse Rate 70 71 71 Respiratory Rate 20 20 16 Blood Pressure Pulse Oximetry 98 Oxygen Delivery Nasal Cannula Oxygen Flow Rate 1 12/16/24 20:36 12/16/24 22:34 12/17/24 02:42 Temperature 36.7 C Pulse Rate 71 Respiratory Rate 16 Blood Pressure 134/79 Pulse Oximetry 98 95 96 Oxygen Delivery Oxygen Flow Rate 12/17/24 05:13 12/17/24 09:15 Temperature 36.4 C L Pulse Rate 64 Respiratory Rate 18 Blood Pressure 162/72 H Pulse Oximetry 96 97 Oxygen Delivery Nasal Cannula Oxygen Flow Rate 1 Intake/Output Intake/Output: Intake & Output 12/14/24 12/15/24 12/16/24 12/17/24 23:59 23:59 23:59 23:59 Intake Total 1660 2220 1500 550 Output Total 400 Balance 1660 2220 1500 150 Meds/Results Medications: Active Medications Generic Name Dose Route Start Last Admin Trade Name Freq PRN Reason Stop Dose Admin Acetaminophen 650 mg 12/09/24 16:10 Acetaminophen 325 Mg Tablet PO Q4H PRN Mild Pain (1-3) or Fever Albuterol 2.5 mg 12/11/24 17:05 Albuterol Sulfate Neb 2.5 Mg/3 Ml Inh INHALATION Q6HRT PRN Wheezing Albuterol/Ipratropium 3 ml 12/13/24 12:00 12/17/24 09:01 Ipratropium 0.5 Mg/Albuterol Sulfate 2.5 Mg Ampul.Neb 3 Ml INHALATION 3 ml [id number] DONNA Administration Amlodipine Besylate 10 mg 12/10/24 09:00 12/17/24 08:57 Amlodipine Besylate 10 Mg Tablet BY MOUTH 10 mg DAILY DONNA Administration Artificial Tears 1 drop 12/10/24 08:48 12/16/24 21:52 Artificial Tears Ophth Soln 15 Ml Bottle EACH EYE 1 drop QID PRN Administration Dry Eye(s) Docusate Sodium 100 mg 12/14/24 09:47 12/14/24 10:06 Docusate Sodium 100 Mg Capsule PO 100 mg Q12H PRN Administration Constipation Enoxaparin Sodium 40 mg 12/10/24 09:00 12/16/24 09:14 Enoxaparin 40 Mg/0.4 Ml Syringe SUB-Q 40 mg DAILY DONNA Administration Guaifenesin 1,200 mg 12/09/24 21:00 12/17/24 08:57 Guaifenesin 12 Hr 600 Mg Tabcr PO 1,200 mg Q12HR DONNA Administration Levofloxacin/Dextrose 750 mg in 150 mls @ 100 mls/hr 12/15/24 09:00 12/17/24 08:58 Levaquin 750 Mg/D5w 150 Ml IVPB 12/21/24 10:29 100 mls/hr Q48HR DONNA Administration Vancomycin HCl 1,000 mg/ 250 mls @ 250 mls/hr 12/16/24 16:00 12/17/24 04:55 Sodium Chloride IVPB 12/21/24 23:59 Infused Q12H DONNA Infusion Radiology Results: ITS Impressions Chest CTA 12/09/24 14:51 IMPRESSION: 1. No pulmonary embolism. 2. Severe emphysema with extensive airspace disease in the right upper lobe including dense consolidation in the suprahilar region consistent with pneumonia. Possible additional small region of pneumonia versus atelectasis at the peripheral left upper lobe. 3. Very small right pleural effusion. Chest X-Ray 12/16/24 08:50 IMPRESSION: 1. ADDENDUM: 12/16/24 1510 CORRECTION: The report was apparently finalized prior to editing the standard template. The report should read- EXAMINATION: XR chest 1V portable DATE: 12/16/2024 08:04 INDICATION: Pneumonia TECHNIQUE: frontal view of the chest was obtained. COMPARISON: Chest radiograph dated 12/12/[address] dated 12/09/2024 FINDINGS: Again seen is emphysema with hyperexpansion lungs and geographic regions of increased lucency with architectural distortion predominantly in the right mid to upper and left upper lung zones. Persistent coarse reticular opacities most prominent at the bilateral upper and lower lung zones consistent with pneumonia. There is been significant interval improvement in prior airspace opacities in the right midlung zone. No pleural effusion or pneumothorax. Heart size is normal. A couple tiny biopsy markers at the left breast. IMPRESSION: 1. Emphysema with persistent coarse reticular opacities consistent with pneumonia with bilateral upper and lower lung predominance but with some interval improvement in the right midlung zone. Labs Labs: Laboratory Results - last 24 hr 12/16/24 12/17/24 13:12 05:20 WBC 6.4 RBC 4.13 L Hgb 12.0 Hct 39.3 MCV 95.2 MCH 29.1 MCHC 30.5 L RDW 13.6 Plt Count 284 MPV 9.7 Immature Gran % (Auto) 2.3 H Neut % (Auto) 69.0 Lymph % (Auto) 15.6 L [place] % (Auto) 9.5 H Eos % (Auto) 3.0 Baso % (Auto) 0.6 Lymph # (Auto) 1.00 [place] # (Auto) 0.6 Eos # (Auto) 0.2 Baso # (Auto) 0.0 Abs Immat Gran (auto) 0.15 H Absolute Neuts (auto) 4.4 Absolute Nucleated RBC 0.000 Nucleated RBC % 0.0 % Immature Plt Fraction 2.1 Sodium 133 L Potassium 4.8 Chloride 98 Carbon Dioxide 36 H Anion Gap -1 L BUN 10 Creatinine 0.38 L Estim Creat Clear Calc 68 Estimated GFR > 60 Glucose 74 Calcium 8.4 Magnesium 2.3 Total Bilirubin 0.3 AST 46 H ALT 36 H Alkaline Phosphatase 54 Total Protein 5.4 L Albumin 2.8 L Vancomycin Trough 18.8
--- NOTE | 2024-12-17 10:51 | HOMEO2EVAL ---
Evaluation was performed at [facility] Home Oxygen Evaluation RC: Home Oxygen (O2) Evaluation Start: 12/17/24 09:01 Freq: ONCE Status: Active Protocol: RPE Activity Type Activity Date Activity User E-sign Co-sign Detail Recorded Client Recorded Date Recorded By Document 12/17/24 09:30 JAMAL [email or web address] 12/17/24 10:51 JAMAL Document 12/17/24 09:31 JAMAL [email or web address] 12/17/24 10:51 JAMAL Document 12/17/24 09:35 JAMAL [email or web address] 12/17/24 10:51 JAMAL Document 12/17/24 09:36 JAMAL [email or web address] 12/17/24 10:51 JAMAL Document 12/17/24 09:37 JAMAL [email or web address] 12/17/24 10:51 JAMAL Document 12/17/24 09:45 JAMAL [email or web address] 12/17/24 10:51 JAMAL 12/17/24 12/17/24 12/17/24 09:30 09:31 09:35 Home O2 Evaluation [Oxygen] -Test Phase Resting Resting Exercise -Oxygen Delivery Room Air Nasal Cannula Nasal Cannula -Oxygen Flow Rate (L/min) 1 1 [Pulse Oximetry] -Pulse Oximetry (90-100 %) 87 L 94 84 L [Pulse Rate] -Pulse Rate (60-100 beats/min) 96 119 H [Exercise] -Ambulation Distance (feet) -Ambulation Distance (meters) [Comments] -Home Oxygen Evaluation Comments 12/17/24 12/17/24 12/17/24 09:36 09:37 09:45 Home O2 Evaluation [Oxygen] -Test Phase Exercise Exercise Resting -Oxygen Delivery Nasal Cannula Nasal Cannula Nasal Cannula -Oxygen Flow Rate (L/min) 2 3 1 [Pulse Oximetry] -Pulse Oximetry (90-100 %) 86 L 91 95 [Pulse Rate] -Pulse Rate (60-100 beats/min) 106 H 93 [Exercise] -Ambulation Distance (feet) 100 -Ambulation Distance (meters) 30.47 [Comments] -Home Oxygen Evaluation Comments Pt requires 1 liter at rest and 3 liters with activity/ exertion
--- NOTE | 2024-12-17 12:40 | P.DS_ITS ---
DS: Admitting Diagnosis Discharge Date 12/17/24 Admitting Diagnosis Weakness DS: Discharge Diagnosis Discharge Diagnosis (1) COPD (chronic obstructive pulmonary disease): Code(s): J44.9 - Chronic obstructive pulmonary disease, unspecified Status: Acute Assessment and Plan: COPD exacerbation Rocephin and Zithromax DuoNebs Solu-Medrol Blood cultures pending 12/10/24: * Continue Rocephin and azithromycin, DuoNebs and Solu-Medrol as well as Incruse Ellipta * Await results of blood cultures * Patient at baseline 2 L supplemental oxygen. 12/11/24: * Continue Rocephin and azithromycin, DuoNebs and Solu-Medrol as well as Incruse Ellipta * Blood cultures no grow to date. * Patient at baseline 2 L supplemental oxygen. * Whipped Topping Finisher referral, she is a patient of Dr. Daíz. * Decrease Methylprednisolone 60 mg ivp q12. 12/12/24: * Continue all treatments. * Abx were changed today to po Levaquin. * Being followed by Dr. Tate. (2) Chronic respiratory failure with hypoxia and hypercapnia: Code(s): J96.11 - Chronic respiratory failure with hypoxia; J96.12 - Chronic respiratory failure with hypercapnia Status: Acute Assessment and Plan: Acute on chronic Currently on home O2 oxygen settings 12/10/24: * See 1. Above. * No new increase in oxygen requirement. 12/11/24: * Unchanged 12/12/24: * Continue supplemental oxygen. (3) Other abnormalities of gait and mobility: Code(s): R26.89 - Other abnormalities of gait and mobility Status: Acute Assessment and Plan: 12/10/24: * Patient with complaints of weakness today. States she has not been out of bed since she has been here and does not feel that she could walk independently as she normally does at baseline. * PT OT evaluation ordered for discharge recommendations. Suspect will discharge in next 1-2 days * Fall precautions 12/11/24: * PT/OT * Fall precautions. 12/12/24: * Family would like pt to go to a rehab/snf, but she refuses at discharge wanting to go home instead. (4) Anxiety disorder, unspecified: Code(s): F41.9 - Anxiety disorder, unspecified Status: Chronic Assessment and Plan: Not on medication 12/10/24: * Appears stable without any p.r.n. needs for control (5) HTN (hypertension): Code(s): I10 - Essential (primary) hypertension Status: Chronic Assessment and Plan: Continue Norvasc 12/10/24: * Currently well controlled. Continue home medications of amlodipine. * Monitor and trend labs and vital signs. 12/12/24: * Stable 1-teens - 130s/50s-70s. * Continue current treatment. (6) Dry eye: Code(s): H04.129 - Dry eye syndrome of unspecified lacrimal gland Status: Chronic Assessment and Plan: 12/10/2024: * Artificial tears ordered Plan This pt was examined today sitting at the bedside in chair in no acute distress. She remains on supplemental oxygen at this time. She is being followed by Pulmonology and discussed and being treated with oralLevaquin. Repeat CXR on 12/12 did not shows no interval change. patient is not requiring any oxygen at rest however with exertion patient is requiring 1L, patient had apnea link last night with 4L,and her saturation good, last night patient had apnea link with 2L, the results were reviewed by Dr. Queen results showed hypoxia and recommended to repeat apnea link tonight with 4L, repeat apnea link with 4L, showed better oxygen saturation and will require home O2 evaluation before going home, her cardio ECHO showed normal LV function with grad I diastolic dysfunction, She has no new complaints today other than no BM for few days, which is normal for the patient, will give miralax, and no new symptoms. will CPM and monitor. patient was seen by Dr. Queen, her precinct police lieutenant will monitor patient one more day, patient will have home O2 evaluation, will discharge tomorrow. DS: Summary Hospital Course Hospital Course: This pt was examined today sitting at the bedside in chair in no acute distress. She remains on supplemental oxygen at this time. She is being followed by Pulmonology and discussed and being treated with oralLevaquin. Repeat CXR on 12/12 did not shows no interval change. patient is not requiring any oxygen at rest however with exertion patient is requiring 1L, patient had apnea link last night with 4L,and her saturation good, last night patient had apnea link with 2L, the results were reviewed by Dr. Queen results showed hypoxia and recommended to repeat apnea link tonight with 4L, repeat apnea link with 4L, showed better oxygen saturation and will require home O2 evaluation before going home, her cardio ECHO showed normal LV function with grad I diastolic dysfunction, She has no new complaints today other than no BM for few days, which is normal for the patient, will give miralax, and no new symptoms. will CPM and monitor. patient was seen by Dr. Queen, her precinct police lieutenant will monitor patient one more day, patient will have home O2 evaluation, patient will require home oxygen upon discharge, will discharge patient today. Time Spent with Patient Time attestation: Total time spent providing and/or coordinating discharge services: Exam Narrative: Appears chronically ill Patient is comfortable, NAD HEENT: eyes are clear and none icteric LUNGS: Bilateral poor air entry HEART: RR S1S2 ABD: BS+, Soft and nontender Lower extremities: no edema SKIN: nonjaundiced Neuro: grossly intact. DS: Data Data Completed and Pending Labs on day of discharge: Labs from last 24 hours 12/17/24 12/16/24 05:20 13:12 WBC 6.4 RBC 4.13 L Hgb 12.0 Hct 39.3 MCV 95.2 MCH 29.1 MCHC 30.5 L RDW 13.6 Plt Count 284 MPV 9.7 Immature Gran % (Auto) 2.3 H Neut % (Auto) 69.0 Lymph % (Auto) 15.6 L [place] % (Auto) 9.5 H Eos % (Auto) 3.0 Baso % (Auto) 0.6 Lymph # (Auto) 1.00 [place] # (Auto) 0.6 Eos # (Auto) 0.2 Baso # (Auto) 0.0 Abs Immat Gran (auto) 0.15 H Absolute Neuts (auto) 4.4 Absolute Nucleated RBC 0.000 Nucleated RBC % 0.0 % Immature Plt Fraction 2.1 Sodium 133 L Potassium 4.8 Chloride 98 Carbon Dioxide 36 H Anion Gap -1 L BUN 10 Creatinine 0.38 L Estim Creat Clear Calc 68 Estimated GFR > 60 Glucose 74 Calcium 8.4 Magnesium 2.3 Total Bilirubin 0.3 AST 46 H ALT 36 H Alkaline Phosphatase 54 Total Protein 5.4 L Albumin 2.8 L Vancomycin Trough 18.8 Discharge Plan Discharge Attending physician on discharge: Fabien Singh Consulting providers: Renay Moreland; Ralph Queen; Michael Mercer; Meli Etienne; Yusra Vega; Du Nino; Sergio Chin Discharging Clinician: Judy Gerber Patient Disposition: Home with Home Health Service Activity: as tolerated Diet: heart healthy Discharge Instructions: Per Care coordination, patient to discharge with [facility] ([phone]) for PT/ OT and fpc services. Agency will call with visit appointment with start of care week of 12/15/24. Patient to follow up with her precinct police lieutenant and primary care provider as soon as possible. patient is instructed if any symptoms worsen to go to nearest ER. Patient Instructions: Antibiotic Form Patient Language: Estonian Stand Alone Forms: General Discharge Information Follow-up/Referrals: Ralph Queen MD [Physician, Pulmonology] Jovanny Hoffman MD [Primary Care Provider, Family Practice] Discharge Medications: New levalbuterol HCl 0.63 mg/3 mL solution for nebulization 0.63 mg inhalation Q8H PRN (Reason: shortness of breath or wheezing) Qty: 90 0RF ipratropium-albuterol 0.5 mg-3 mg(2.5 mg base)/3 mL Solution For Nebulization 3 ml inhalation [id number] Qty: 90 0RF docusate sodium 100 mg Capsule 100 mg PO Q12H PRN (Reason: Constipation) Qty: 30 0RF Artificial Tears(an-[id number]-[id number]) 1-0.2-0.2 % Drops 1 drp EACH EYE QID PRN (Reason: Dry Eye(S)) Qty: 5 0RF guaifenesin [Mucus Relief ER] 600 mg Tablet Extended Release 12hr 1,200 mg PO Q12HR Qty: 30 0RF levofloxacin 750 mg tablet 750 mg PO .q48 Qty: 2 0RF linezolid 600 mg tablet 600 mg PO Q12H 9 Days Qty: 18 0RF Continued calcium carbonate-vitamin D3 [Calcium 600 + D(3)] 600 mg calcium- 200 unit Capsule 1 cap PO DAILY albuterol sulfate 90 mcg/actuation HFA aerosol inhaler 2 puff INHALATION QID PRN (Reason: Shortness Of Breath) Qty: 8.5 6RF cyanocobalamin (vitamin B-12) 2,500 mcg tablet,chewable 2,500 mcg PO DAILY vitamin E (dl, acetate) 450 mg (1,000 unit) capsule 450 mg PO DAILY fluticasone propion-salmeterol [Wixela Inhub] 250-50 mcg/dose blister with device 1 inh inhalation BID Qty: 60 6RF cholecalciferol (vitamin D3) 50 mcg (2,000 unit) Tablet 50 mcg PO DAILY tiotropium bromide 18 mcg capsule, w/inhalation device 1 cap inhalation DAILY Qty: 30 6RF Rx Instructions: puncture 1 cap using device; one dose = 2 inhalations amlodipine 10 mg tablet See Rx Instructions .ROUTE .COMPLEX Qty: 90 1RF Dose Instruction: Take 1 tablet by mouth once daily Rx Instructions: Take 1 tablet by mouth once daily Date of admission: 12/10/24 10:41 Primary Care Provider: Jovanny Hoffman Admitting Provider: Fabien Singh Attending physician on admission: Fabien Signh Condition: Stable
--- NOTE | 2024-12-24 03:40 | PC.NURSE ---
1922 12/11/24 Critical Lab result - MRSA + Nares. Notified Olga Contreras regarding positive result. Unable to correct and place in flowsheet
== END 2024-12-17 14:25 | disposition home health service (06) | DRG 193 ==
LOC: ANHED 13:01 → ANH3MEDSUR 16:03
PROVIDERS: Emergency Medicine; Internal Medicine Pulmonary Disease; Nurse Practitioner Adult Health; Nurse Practitioner Family; Nurse Practitioner Gerontology; Student in an Organized Health Care Education/Training Program; Admitting Provider Internal Medicine; Emergency Provider Emergency Medicine; PCP Family Medicine Adolescent Medicine; Visit Provider Internal Medicine
DX: J18.9 Pneumonia, unspecified organism (principal); J96.21 Acute and chronic respiratory failure with hypoxia; J96.22 Acute and chronic respiratory failure with hypercapnia; J44.1 Chronic obstructive pulmonary disease with (acute) exacerbation; R64 Cachexia; J44.0 Chronic obstructive pulmonary disease with (acute) lower respiratory infection; R26.89 Other abnormalities of gait and mobility; F41.9 Anxiety disorder, unspecified; I10 Essential (primary) hypertension; H40.9 Unspecified glaucoma; H04.129 Dry eye syndrome of unspecified lacrimal gland; Z99.81 Dependence on supplemental oxygen; Z85.3 Personal history of malignant neoplasm of breast; Z86.16 Personal history of COVID-19; Z87.891 Personal history of nicotine dependence; Z68.20 Body mass index [BMI] 20.0-20.9, adult
CPT/HCPCS: 36415; 36600; 71045; 71275; 80048; 80053; 80202; 82375; 82805; 82948; 83050; 83735; 83880; 84145; 85018; 85025; 85055; 86140; 86738; 87040; 87070; 87205; 87449; 87637; 87641; 87899; 93005; 93306; 94003; 94640; 94667; 94668; 94762; 96365; 96366; 96367; 96372; 96375; 97110; 97162; 97165; 97530; 97535; 99285; A9270; G0378; J0456; J0696; J1650; J1720; J1956; J2919; J3373; J7050; Q9967

== ENCOUNTER 2025-02-05 12:36 | Outpatient (CLI) | payer OTHER, MEDICAID, SELFPAY ==
[2025-02-05] VITALS (7 sets, daily range): PULSE 72–92; O2SAT 85–91
--- NOTE | ~2025-02-05 | CT_ITS ---
EXAMINATION:CT diagnostic chest wo con DATE: 02/05/2025 13:32 INDICATION: Chronic obstructive pulmonary disease. TECHNIQUE: Computed tomography (CT) of the chest was performed without intravenous contrast. Automated exposure control and iterative reconstruction technique were employed. The dose-length product (DLP) was 134.85 mGy-cm. COMPARISON: Chest CT 12/09/2024, 05/06/2021 FINDINGS: There is severe emphysema. There is complete collapse of right lung middle lobe. There are airspace opacities in the upper lobes with volume loss and air bronchograms, consistent with pneumonia. There are clustered nodules in left lower lobe measuring up to 5 mm, likely infection. Calcified bilateral lung nodules are consistent with old granulomatous disease. No pleural effusion. The heart size is normal. There are coronary artery calcifications. No pericardial effusion. Calcifications in the spleen are consistent with old granulomatous disease. There is mild thoracic spondylosis. IMPRESSION: 1. Bilateral upper lobe pneumonia with improvement on the right and worsening on the left. 2. Severe emphysema. 3. New complete collapse of right lung middle lobe. Reviewed, dictated and finalized at location E. IMPRESSION: 1. Bilateral upper lobe pneumonia with improvement on the right and worsening o n the left. 2. Severe emphysema. 3. New complete collapse of right lung middle lobe.
--- NOTE | 2025-02-05 13:22 | HOMEO2EVAL ---
Evaluation was performed at [facility] Home Oxygen Evaluation RC: Home Oxygen (O2) Evaluation Start: 02/05/25 13:15 Freq: Status: Active Protocol: RPE Activity Type Activity Date Activity User E-sign Co-sign Detail Recorded Client Recorded Date Recorded By Document 02/05/25 12:40 DJO [email or web address] 02/05/25 13:22 DJO Document 02/05/25 12:45 DJO [email or web address] 02/05/25 13:22 DJO Document 02/05/25 12:50 DJO [email or web address] 02/05/25 13:22 DJO Document 02/05/25 12:55 DJO [email or web address] 02/05/25 13:22 DJO Document 02/05/25 13:00 DJO [email or web address] 02/05/25 13:22 DJO Document 02/05/25 13:05 DJO [email or web address] 02/05/25 13:22 DJO Document 02/05/25 13:20 DJO [email or web address] 02/05/25 13:22 DJO 02/05/25 02/05/25 02/05/25 12:40 12:45 12:50 Home O2 Evaluation [Oxygen] -Test Phase Resting Resting Exercise -Oxygen Delivery Room Air Nasal Cannula Nasal Cannula -Oxygen Flow Rate (L/min) 1 1 [Pulse Oximetry] -Pulse Oximetry (90-100 %) 87 L 90 85 L [Pulse Rate] -Pulse Rate (60-100 beats/min) 72 75 88 [Charges] -Evaluation Charges O2 Evaluation by Pulmonary 02/05/25 02/05/25 02/05/25 12:55 13:00 13:05 Home O2 Evaluation [Oxygen] -Test Phase Exercise Exercise Exercise -Oxygen Delivery Nasal Cannula Nasal Cannula Nasal Cannula -Oxygen Flow Rate (L/min) 2 3 4 [Pulse Oximetry] -Pulse Oximetry (90-100 %) 86 L 88 L 91 [Pulse Rate] -Pulse Rate (60-100 beats/min) 85 90 92 [Charges] -Evaluation Charges 02/05/25 13:20 Home O2 Evaluation [Oxygen] -Test Phase Resting -Oxygen Delivery Nasal Cannula -Oxygen Flow Rate (L/min) 1 [Pulse Oximetry] -Pulse Oximetry (90-100 %) 91 [Pulse Rate] -Pulse Rate (60-100 beats/min) 72 [Charges] -Evaluation Charges
== END 2025-02-05 12:37 | disposition home or self-care (01) ==
LOC: ANHPFT 12:40
PROVIDERS: PCP Family Medicine Adolescent Medicine; Visit Provider Internal Medicine Pulmonary Disease
DX: J44.9 Chronic obstructive pulmonary disease, unspecified (principal); J18.9 Pneumonia, unspecified organism; J98.19 Other pulmonary collapse
CPT/HCPCS: 71250; 94618

== ENCOUNTER 2025-02-16 09:11 | Outpatient (CLI) | payer OTHER, MEDICAID, SELFPAY ==
--- NOTE | ~2025-02-16 | MR_ITS ---
EXAMINATION: MR brain/brain stem wo/w con DATE: 02/16/2025 10:24 INDICATION: Other abnormalities of gait and immobility. TECHNIQUE: Magnetic resonance imaging (MRI) of the brain and brainstem was performed without and with 8 mL MultiHance intravenous contrast. COMPARISON: None. FINDINGS: There are few scattered foci of old microhemorrhage in the cerebral hemispheres. There are old infarcts in the thalami. There are scattered areas of nonspecific increased T2-weighted signal intensity in the cerebral white matter and delfina. There is no acute ischemic infarct or abnormal mass lesion. The ventricles are normal in size. The paranasal sinuses are clear. There are likely changes of ocular lens replacement surgeries. The mastoid air cells are normal. IMPRESSION: 1. 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 2. Moderate nonspecific cerebral white matter disease, which likely represents chronic small vessel ischemic disease. 3. Scattered foci of old microhemorrhage in the cerebrum, most commonly seen with amyloid angiopathy or chronic hypertensive encephalopathy. Reviewed, dictated and finalized at location E. IMPRESSION: 1. 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 2. Moderate nonspecific cerebral white matter disease, which likely represents chronic small vessel ischemic disease. 3. Scattered foci of old microhemorrhage in the cerebrum, most commonly seen wi th amyloid angiopathy or chronic hypertensive encephalopathy.
== END 2025-02-16 09:12 | disposition home or self-care (01) ==
PROVIDERS: PCP Family Medicine Adolescent Medicine; Visit Provider Family Medicine
DX: R26.89 Other abnormalities of gait and mobility (principal); R90.82 White matter disease, unspecified
CPT/HCPCS: 70553; A9577

== ENCOUNTER → 2025-02-24 09:47 | Outpatient (CLI) | payer OTHER, MEDICAID, SELFPAY ==
--- NOTE | ~2025-02-24 | XR_ITS ---
EXAMINATION: XR chest 2V, 02/24/2025 10:00 CDT HISTORY: J18.9 - Pneumonia, unspecified organism COMPARISON: No comparisons available. Technique: 2 views obtained. Findings: COPD changes. There are bilateral small infiltrates. Trace bibasilar effusions. No pneumothorax. Heart is normal size. Mediastinal and hilar contours are within normal limits. Bony thorax no acute abnormality. Impression: Bilateral probable pneumonia superimposed on chronic lung disease. The findings appear progressed compared to the previous study Reviewed, dictated and finalized at location P. Impression: Bilateral probable pneumonia superimposed on chronic lung disease. The findings appear progressed compared to the previous study
== END ==
PROVIDERS: PCP Family Medicine; Visit Provider Family Medicine
DX: J18.9 Pneumonia, unspecified organism (principal)
CPT/HCPCS: 71046

== ENCOUNTER 2025-02-26 09:01 | Inpatient (IN) | payer OTHER, MEDICAID, SELFPAY ==
--- OUTSIDE RECORDS SUMMARY | 2000-10-09 11:30 | XMS_ITS | Continuity of Care Document ---
Author Organization [facility] Address [id number] [place] [address] [address] [place] [address] Phone Care Team Providers Care Sales Technician Home Theater Name Role Phone Luisa Goel Unavailable Unavailable Advance Directives Directive Yes / No Effective Date File Name No Information Encounters Encounter Description Practice Location Reason(s) For Visit Diagnoses Date Provider Providers Copied on Encounter [facility], [address], [place], [place], [id number], [place] tel:[phone] [facility] No Information [address] Moran. [address] [facility] , [address], [place], [address], [place]. tel:[phone] Family History Family Member Type Diagnosis Age At Onset No Information Payers Payer name Insurance type Covered green party ID Authoriza tion(s) No Information Social History Type Description Quantity Date Captured Comments Sex Female Smoking Status No Information Chief Complaint And Reason For Visit No Information Reason For Referral Reason For Referral No Information History Of Present Illness Encounter Date Complaint History Of Prese nt Illness No Information Functional Status Date Functional Assessmen t No Information Instructions Date Instruction Additional Infor mation No Information Assessments Type Assessment Date No Information Patient Care Teams Name Effective Dates (start - stop) Status Members No Information
[2025-02-26] VITALS (16 sets, daily range): BP systolic 129–139; BP diastolic 59–80; PULSE 70–78; RESP 13–21; TEMP 36.6–37.2; O2SAT 93–100; BMI 18.0
--- NOTE | ~2025-02-26 | CT_ITS ---
EXAMINATION: CT diagnostic chest wo con DATE: 02/27/2025 08:54 INDICATION: pneumonia TECHNIQUE: Computed tomography (CT) of the chest was performed without intravenous contrast. Additional 3D reconstructions utilizing coronal maximum intensity projection (MIP) were performed. Automated exposure control and iterative reconstruction technique were employed. The dose-length product was 13 7.29 mGy-cm. COMPARISON: 02/05/2025 FINDINGS: Severe emphysema. Again seen is consolidation in the bilateral upper lobes and the lingula which appears unchanged since the most recent prior study but which has significantly improved in the right upper lobe since earlier study from 12/09/2024. The opacities in the left upper lobe and lingula have largely developed since the study on 12/09/2024 which should be most consistent with pneumonia. Interval resolution of prior right middle lobe collapse. Calcified nodules in the right lower lobe along with calcified right hilar lymph and multiple small splenic calcifications nodes consistent with old granulomatous disease. Small bilateral posterior layering pleural effusions, right greater than left. Heart size is normal. Atherosclerotic coronary artery calcifications. No pericardial effusion. Thoracic aorta is normal in caliber. No pathologically enlarged thoracic lymphadenopathy. Tiny renal stones layering dependently in a few of the calyces of the right kidney. There is mild right hydronephrosis. Th oracic kyphosis and mild dextrocurvature with mild spondylosis. IMPRESSION: 1. No significant interval change in multifocal pneumonia in the bilateral upper lobes and lingula. 2. New small bilateral posterior layering pleural effusions. 3. Interval resolution of prior right middle lobe collapse. 4. Severe emphysema. 5. Right-sided nephrolithiasis with mild right hydronephrosis. Consider further evaluation with CT of the abdomen and pelvis to assess for more distal obstructing stone or mass. Reviewed, dictated and finalized at location A. IMPRESSION: 1. No significant interval change in multifocal pneumonia in the bilateral uppe r lobes and lingula. 2. New small bilateral posterior layering pleural effusions. 3. Interval resolution of prior right middle lobe collapse. 4. Severe emphysema. 5. Right-sided nephrolithiasis with mild right hydronephrosis. Consider further evaluation with CT of the abdomen and pelvis to assess for more distal obstruc ting stone or mass.
--- NOTE | ~2025-02-26 | CT_ITS ---
EXAMINATION: CT abdomen pelvis wo con DATE: 02/28/2025 09:52 INDICATION: Right kidney stones. Hydronephrosis. TECHNIQUE: Computed tomography (CT) of the abdomen and pelvis was performed without intravenous contrast. Automated exposure control and iterative reconstruction technique were employed. The dose-length product was 166.34 mGy-cm. COMPARISON: Chest CT 02/27/2025, 05/06/21, 02/08/17 FINDINGS: There is severe emphysema. There is mild atelectasis bilaterally. There are small pleural effusions. The heart size is normal. No pericardial effusion. The liver is normal. The gallbladder is not visualized and likely absent. Calcifications in the spleen are consistent with old granulomatous disease. The pancreas, adrenal glands, and left kidney are normal. There are 2 stones in right kidney measuring up to 5 mm. There is mild right hydronephrosis. There are no dilated loops of bowel. There are no pathologically enlarged lymph nodes. There is no free intraperitoneal fluid. There is mild thoracic and lumbar spondylosis. IMPRESSION: 1. Chronic mild right hydronephrosis, stable from 02/08/17. 2. Nonobstructing right kidney stones. 3. Severe emphysema. 4. Small pleural effusions. Reviewed, dictated and finalized at location A.
--- NOTE | ~2025-02-26 | CT_ITS ---
EXAMINATION: CT brain wo con DATE: 02/26/2025 09:47 INDICATION: Altered mental status TECHNIQUE: Computed tomography (CT) of the head was performed without intravenous contrast. The dose-length product was 605.33 mGy-cm. COMPARISON: None FINDINGS: No acute intracranial hemorrhage. No mass effect. No midline shift. No hydrocephalus. No skull fracture. Visualized paranasal sinuses mastoid air cells are clear. Small lacunar infarction in the left caudate of indeterminate age. There are several low density regions scattered throughout the periventricular and deep white matter which are favored to represent chronic ischemic white matter change. IMPRESSION: 1. No acute intracranial hemorrhage. No mass effect. 2. Small lacunar infarction in the left caudate of indeterminate age. Consider a brain MRI 3. Probable chronic ischemic white matter change. If symptoms persist or worsen, consider a short-term follow-up study or additional imaging for further assessment. Reviewed, dictated and finalized at location Q. IMPRESSION: 1. No acute intracranial hemorrhage. No mass effect. 2. Small lacunar infarction in the left caudate of indeterminate age. Consider a brain MRI 3. Probable chronic ischemic white matter change. If symptoms persist or worsen, consider a short-term follow-up study or additio nal imaging for further assessment.
--- NOTE | ~2025-02-26 | XR_ITS ---
EXAMINATION: XR chest 1V portable COMPARISON: No comparisons available. HISTORY: hypercapnia FINDINGS: Scattered bilateral infiltrates superimposed on chronic lung disease. Small effusions are noted. No pneumothorax. Heart is normal size. There is abnormal density in the left suprahilar location with abnormal thickening of the left lung apex which correlates with scar tissue with respect to the previous CT. Bony thorax no acute abnormality. Miscellaneous: None Impression: Bilateral pneumonia superimposed on chronic lung disease Reviewed, dictated and finalized at location P. P [employer] Impression: Bilateral pneumonia superimposed on chronic lung disease
--- NOTE | ~2025-02-26 | MR_ITS ---
EXAMINATION: MR brain/brain stem wo/w con DATE: 02/26/2025 15:30 INDICATION: Altered mental status with possible new infarct TECHNIQUE: Magnetic resonance imaging (MRI) of the brain and brainstem was performed without intravenous contrast. Sequences included sagittal and axial T1-weighted SE, axial diffusion-weighted FS SE, axial 3D SWAN, axial T2-weighted FLAIR, and axial T2-weighted FSE. Postcontrast axial and coronal T1-weighted SE was obtained. Apparent diffusion coefficient (ADC) maps were created. COMPARISON: None. FINDINGS: There are no areas of restricted diffusion to suggest acute infarction. Small old lacunar infarcts at the bilateral thalami. There are several small foci of susceptibility artifact in the bilateral periventricular regions consistent with chronic microhemorrhage as could be seen in the setting of hypertension. No abnormal intracranial mass lesion. There are scattered areas of nonspecific increased T2-weighted signal intensity in the cerebral white matter, predominantly involving the deep and periventricular white matter. There are no intraparenchymal signal abnormalities seen on the other pulse sequences. The ventricles are symmetric and normal in size. There are no abnormal extra-axial fluid collections. Flow voids are seen in the cerebral arteries on the T2- weighted sequences consistent with their expected patency. Changes of bilateral intraocular lens replacement. Visualized orbits and soft tissues are unremarkable. There are no areas of abnormal enhancement on the post contrast images. No change in a nonspecific flap pedunculated lesion arising from the left parietal scalp which measures 2.3 x 1.8 cm in diameter and up to 5 mm in thickness. IMPRESSION: 1. No acute intracranial process. 2. 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 3. A few unchanged scattered foci of old microhemorrhage in the cerebrum most typically seen with hypertension or amyloid angiopathy. 4. Indeterminate 2.3 x 1.8 x 0.5 cm flap pedunculated lesion arising from the left parietal scalp. Correlate with physical exam. Reviewed, dictated and finalized at location A. IMPRESSION: 1. No acute intracranial process. 2. Small old infarcts in the bilateral thalami and moderate scattered nonspecif ic periventricular predominant white matter T2 hyperintensity consistent with c hronic small vessel ischemic disease. 3. A few unchanged scattered foci of old microhemorrhage in the cerebrum most t ypically seen with hypertension or amyloid angiopathy. 4. Indeterminate 2.3 x 1.8 x 0.5 cm flap pedunculated lesion arising from the l eft parietal scalp. Correlate with physical exam.
--- NOTE | ~2025-02-26 | XR_ITS ---
EXAMINATION: XR chest 2V, 02/26/2025 9:48 CDT HISTORY: left sided pneumonia COMPARISON: No comparisons available. Technique: 2 views obtained. Findings: COPD changes. Small basilar infiltrates and effusions. No pneumothorax. Heart is normal size. Mediastinal and hilar contours are within normal limits. Bony thorax no acute abnormality. Impression: Bilateral pneumonia. The findings appear progressed compared to the previous study Reviewed, dictated and finalized at location P. Impression: Bilateral pneumonia. The findings appear progressed compared to the previous [facility]
--- NOTE | 2025-02-26 09:19 | ED.WEAKNESS ---
HPI - Weakness General Chief complaint: Weakness <David Gould APRN - Last Filed: 02/26/25 13:28> Stated complaint: weakness <David Gould APRN - Last Filed: 02/26/25 13:28> Time Seen by Provider: 02/26/25 09:19 <David Gould APRN - Last Filed: 02/26/25 13:28> Source: patient and other (Caregiver) <David Gould APRN - Last Filed: 02/26/25 13:28> Mode of arrival: ambulatory <David Gould APRN - Last Filed: 02/26/25 13:28> Limitations: no limitations <David Gould APRN - Last Filed: 02/26/25 13:28> History of Present Illness HPI Narrative: Ritu is an 79-year-old female patient presenting to the ER today with complaints of weakness, pneumonia, and wants to be checked for MRSA. Caregiver reports the patient has been acting confused. Patient denies any fevers, productive cough, shortness of breath, or chest pain. She does wear home oxygen-is currently on 2 L with O2 sat of 100%. Caregiver has had to increase her to 4 liters of o2. Seen her PCP 2 days ago and had chest x-ray done that shows worsening of bilateral lobe pneumonia. Was prescribed Augmentin and azithromycin. Patient reports that her has MRSA and she is wanting to be tested for MRSA as well. She denies any open sores or wounds. Patient reports feeling weak and is having difficulties doing activities of daily living. History of COPD, respiratory failure, on home O2, pneumonia, breast CA, and tobacco smoker. <David Gould APRN - Last Filed: 02/26/25 13:28> Related Data Home medications: Home Medications ?Medication ?Instructions ?Recorded ?Confirmed ?Last Taken ?Type calcium 600 mg (as 1 cap PO DAILY 05/10/19 02/26/25 09/27/19 17:30 History carbonate)-vitamin D3 5 mcg (200 unit) capsule (Calcium 600 + D(3)) cyanocobalamin (vitamin B-12) 2,500 mcg PO DAILY 08/04/21 02/26/25 Unknown History 2,500 mcg chewable tablet vitamin E (dl, acetate) 450 mg 450 mg PO DAILY 11/02/22 02/26/25 Unknown History (1,000 unit) capsule cholecalciferol (vitamin D3) 50 50 mcg PO DAILY 03/07/23 02/26/25 Unknown History mcg (2,000 unit) tablet amlodipine 5 mg tablet 5 mg PO DAILY 12/25/24 02/26/25 Unknown History amoxicillin 875 mg-potassium 1 tablet PO Q12H 02/26/25 02/26/25 02/25/25 History clavulanate 125 mg tablet azithromycin 250 mg tablet 250 mg PO .COMPLEX 02/26/25 02/26/25 02/25/25 History <David Gould APRN - Last Filed: 02/26/25 13:28> Allergies/Adverse reactions: Allergies Allergy/AdvReac Type Severity Reaction Status Date / Time Sulfa (Sulfonamide Allergy Severe INTERNAL Verified 02/26/25 13:31 Antibiotics) BURNING <David Gould APRN - Last Filed: 02/26/25 13:28> Review of Systems Review of Systems: Pertinent positives per HPI. Patient denies any fever, chills, rash, headache, visual changes, dizziness, cough, runny nose, sore throat, shortness of breath, chest pain, palpitations, nausea, vomiting, diarrhea, constipation, abdominal pain, or any urinary issues. <David Gould APRN - Last Filed: 02/26/25 13:28> [facility] Past Medical History Medical History: Medical History Cerebral amyloid angiopathy Pneumonia History of tobacco use disorder Emphysema, unspecified Hx of breast cancer Left breast 2017 treated with radiation therapy Dry eye Other abnormalities of gait and mobility Urinary, incontinence, stress female Anxiety Glaucoma Chronic respiratory failure with hypoxia and hypercapnia Chronic home O2 of 2.5 L COVID-19 virus infection Essential hypertension COPD (chronic obstructive pulmonary disease) With PFTs in 2003 demonstrating severe obstructive ventilatory defect with acute bronchodilator response <David Gould APRN - Last Filed: 02/26/25 13:28> Surgical History Surgical History: Surgical History Previous section Status post cataract extraction of both eyes with insertion of intraocular lens History of partial mastectomy of left breast July 2016 <David Gould APRN - Last Filed: 02/26/25 13:28> Family History Family History: Family History Father , In his 80s Arthritis Hardening of the arteries of the heart Mother , In her 80s Hypertension Hardening of the arteries of the heart Sibling Breast cancer <David Gould APRN - Last Filed: 02/26/25 13:28> Social History Social History: Social History Social History: Primary care physician: Dr. Jovanny Akins Code status: Modified code no CPR per patient request. She states that if her heart were to stop she is rated go be with God. The patient is okay with a trial of intubation and ventilator support. She is uncertain if she would want tracheostomy. Smoking packs per day: 1 Smoking cigarettes per day: 20.0 Years smoked: 39 Smoking pack-years: 39.00 Smoking status: Former smoker Second hand tobacco smoke exposure: No Additional smoking assessment comments: PT STATES STOPPED SMOKING 1999 Alcohol intake: never Substance use: never Substance use type: does not use Lack of Transportation: No Lack of Food: Never True Current Housing: I Have Housing Concerned About Future Housing: No Difficulty Paying Gas/Electric Bills: No Difficulty Paying for Meds: No Currently Unemployed: No Education: High School Diploma/GED Difficulty w/ Childcare or Family Care: No Living arrangements: with family Additional living arrangements comments: She lives with her of 43 years and 1 of her adult sons. 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 Gender identity (if verbalized by the patient): Female Sexual Orientation (if Verbalized by the Patient): Straight or Heterosexual Spiritual care concerns: No Agree to blood products: Yes <David Gould APRN - Last Filed: 02/26/25 13:28> Comments At the time of my signature, I reviewed and agree with the nursing past medical, surgical, social, and family history. There is no relevant family history pertinent to the patient complaint. <David Gould APRN - Last Filed: 02/26/25 13:28> Exam Narrative: General: Well-developed, thin, in no apparent distress Head: Normocephalic, atraumatic Eyes: Pupils equally round and reactive to light bilaterally, EOM intact, sclera and conjunctive clear, no discharge, lids normal Ears: TMs intact and clear, ear canals clear, no drainage, grossly hearing normal. Nose: Nares patent, no discharge, no inflammation, no sinus tenderness. Mouth: Oropharynx without lesions or masses, good dentition, MMM. Neck: Supple, trachea midline, no enlargement of anterior or posterior cervical nodes, no thyroid masses or goiter palpable. Cardio: Regular rate and rhythm, s1 and s2 normal, no murmur appreciated. Resp: Crackles over the bilateral lower bases of the lung field and over the left mid lung zone, no rhonchi, wheezing or rubs <David Gould APRN - Last Filed: 02/26/25 13:28> Course Course Emergency Course: Portions of this record may have been created with voice recognition software. <David Gould APRN - Last Filed: 02/26/25 13:28> [employer]OR FINISHING/PA Physician Supervision I did review the chart and agree with management <Caleb Foote MD - Last Filed: 02/26/25 18:11> Vital Signs Vital signs: Vital Signs Blood Pressure 133/76 02/26/25 09:11 Pulse Oximetry 100 02/26/25 09:11 Temperature 36.6 C 02/26/25 14:00 Pulse Rate 70 02/26/25 14:00 Respiratory Rate 18 02/26/25 14:00 Blood Pressure 132/69 02/26/25 14:00 Pulse Oximetry 100 02/26/25 14:00 Oxygen Delivery Nasal Cannula 02/26/25 13:26 Oxygen Flow Rate 2 02/26/25 13:26 Vital signs reviewed <David Gould APRN - Last Filed: 02/26/25 13:28> Vital Signs Blood Pressure 133/76 02/26/25 09:11 Pulse Oximetry 100 02/26/25 09:11 Temperature 36.6 C 02/26/25 14:00 Pulse Rate 70 02/26/25 14:00 Respiratory Rate 18 02/26/25 14:00 Blood Pressure 132/69 02/26/25 14:00 Pulse Oximetry 100 02/26/25 14:00 Oxygen Delivery Nasal Cannula 02/26/25 13:26 Oxygen Flow Rate 2 02/26/25 13:26 <Caleb Foote MD - Last Filed: 02/26/25 18:11> MDM - Weakness MDM Narrative Medical decision making narrative: At the time of visit patient is resting comfortably on the exam table. Patient appears to be nontoxic. Complaints of weakness, pneumonia, and wants to be checked for MRSA. Caregiver reports the patient has been acting confused. Patient denies any fevers, productive cough, shortness of breath, or chest pain. She does wear home oxygen-is currently on 2 L with O2 sat of 100%. Caregiver has had to increase her to 4 liters of o2. Seen her PCP 2 days ago and had chest x-ray done that shows worsening of bilateral lobe pneumonia. Patient reports that her has MRSA and she is wanting to be tested for MRSA as well. She denies any open sores or wounds. Patient reports feeling weak and is having difficulties doing activities of daily living. Labs, chest x-ray, and CT of the brain was ordered. Will consider adding vancomycin to her regimen if MRSA PCR is positive. Labs: CBC shows white blood cell count 5.1 H&H of 10.5 in 35.8, platelet counts 182, sodium 131, potassium of 4.8, chloride of 87, carbon dioxide greater than 40, BUN is 13, creatinine 0.43, AST is 26 ALT is 11, alk-phos 55, lactic acid was 0.7, procalcitonin and MRSA PCR pending Diagnostics: Chest x-ray shows bilateral progressively worsening of pneumonia, CT brain shows no acute intracranial mass or hemorrhage. Does show a small lacunar infarction of left caudate of indeterminant age. Consider MRI. Plan: Patient presenting to the ER for worsening weakness, confusion, and pneumonia. Patient was currently taking Augmentin and azithromycin for her symptoms. Patient having no improvement of her pneumonia with outpatient antibiotics and symptoms are worsening. Patient updated of test results. Recommend admission to the hospital for IV antibiotics and further observation. Discussed patient's case with Dr. Martini and he agrees with admission. Discussed patient's case with Dr. Domingo- hospitalist and he agrees to admission to medical floor. Patient and caregiver update. <David Gould APRN - Last Filed: 02/26/25 13:28> Differential Diagnosis Differential diagnosis: Likely anemia, hypoglycemia, sepsis, dehydration and other (Pneumonia, MRSA, electrolyte imbalance) <David Gould APRN - Last Filed: 02/26/25 13:28> Lab Data Result diagrams: 02/26/25 10:09 02/26/25 10:09 <David Gould APRN - Last Filed: 02/26/25 13:28> Labs: Lab Results 02/26/25 02/26/25 Range/Units 10:09 10:43 WBC 5.1 (4.5-10.0) K/mm3 RBC 3.83 L (4.2-5.4) M/mm3 Hgb 10.5 L (12.0-15.0) g/dL Hct 35.8 L (37.0-47.0) % MCV 93.5 (80-100) fl MCH 27.4 (26-34) pg MCHC 29.3 L (32-36) g/dl RDW 15.4 H (11.5-14.5) % Plt Count 182 (150-375) k/mm3 MPV 8.8 (7.4-10.4) fl Immature Gran % (Auto) 0.6 H (0-0.5) % Neut % (Auto) 76.8 H (45.5-73.1) % Lymph % (Auto) 11.3 L (18.3-44.2) % Wilkinson % (Auto) 10.3 H (2.6-8.5) % Eos % (Auto) 0.4 (0-4.4) % Baso % (Auto) 0.6 (0.2-1.2) % Lymph # (Auto) 0.57 L (0.9-3.2) K/mm3 Wilkinson # (Auto) 0.5 (0.1-0.6) K/mm3 Eos # (Auto) 0.0 (0-0.3) K/mm3 Baso # (Auto) 0.0 (0.0-0.1) K/mm3 Abs Immat Gran (auto) 0.03 (0.00-0.031) K/mm3 Absolute Neuts (auto) 3.9 (1.3-6.7) K/mm3 Absolute Nucleated RBC 0.000 (0.0-0.012) K/mm3 Band Neutrophils % Not Reportable Nucleated RBC % 0.0 (0.0-0.2) % Platelet Estimate Adequate (Adequate) Hypochromasia 1+ Stomatocytes Occasional Schistocytes None seen Sodium 131 L (137-145) mmol/L Potassium 4.8 (3.4-5.0) mmol/L Chloride 87 L (98-107) mmol/L Carbon Dioxide > 40 H (22-30) mmol/L Anion Gap (4-12) mmol/L BUN 13 (7-17) mg/dL Creatinine 0.43 L (0.7-1.0) mg/dL Estim Creat Clear Calc Not Reportable Estimated GFR > 60 (59 - ) Glucose 86 (65-110) mg/dL Lactic Acid 0.7 (0.7-2.0) mmol/L Calcium 9.0 (8.4-10.2) mg/dL Total Bilirubin 0.4 (0.2-1.3) mg/dL AST 26 (14-36) U/L ALT 11 (6-35) U/L Alkaline Phosphatase 55 (38-126) U/L Total Protein 6.6 (6.3-8.2) g/dL Albumin 3.5 (3.5-5.1) g/dL Procalcitonin 0.1 ng/mL Nasal MRSA (PCR) Not detected (NOT DETECTE) <David Gould, ELEVATOR CONDUCTOR - Last Filed: 02/26/25 13:28> Lab Results 02/26/25 02/26/25 Range/Units 10:09 10:43 WBC 5.1 (4.5-10.0) K/mm3 RBC 3.83 L (4.2-5.4) M/mm3 Hgb 10.5 L (12.0-15.0) g/dL Hct 35.8 L (37.0-47.0) % MCV 93.5 (80-100) fl MCH 27.4 (26-34) pg MCHC 29.3 L (32-36) g/dl RDW 15.4 H (11.5-14.5) % Plt Count 182 (150-375) k/mm3 MPV 8.8 (7.4-10.4) fl Immature Gran % (Auto) 0.6 H (0-0.5) % Neut % (Auto) 76.8 H (45.5-73.1) % Lymph % (Auto) 11.3 L (18.3-44.2) % Wilkinson % (Auto) 10.3 H (2.6-8.5) % Eos % (Auto) 0.4 (0-4.4) % Baso % (Auto) 0.6 (0.2-1.2) % Lymph # (Auto) 0.57 L (0.9-3.2) K/mm3 Wilkinson # (Auto) 0.5 (0.1-0.6) K/mm3 Eos # (Auto) 0.0 (0-0.3) K/mm3 Baso # (Auto) 0.0 (0.0-0.1) K/mm3 Abs Immat Gran (auto) 0.03 (0.00-0.031) K/mm3 Absolute Neuts (auto) 3.9 (1.3-6.7) K/mm3 Absolute Nucleated RBC 0.000 (0.0-0.012) K/mm3 Band Neutrophils % Not Reportable Nucleated RBC % 0.0 (0.0-0.2) % Platelet Estimate Adequate (Adequate) Hypochromasia 1+ Stomatocytes Occasional Schistocytes None seen Sodium 131 L (137-145) mmol/L Potassium 4.8 (3.4-5.0) mmol/L Chloride 87 L (98-107) mmol/L Carbon Dioxide > 40 H (22-30) mmol/L Anion Gap (4-12) mmol/L BUN 13 (7-17) mg/dL Creatinine 0.43 L (0.7-1.0) mg/dL Estim Creat Clear Calc Not Reportable Estimated GFR > 60 (59 - ) Glucose 86 (65-110) mg/dL Lactic Acid 0.7 (0.7-2.0) mmol/L Calcium 9.0 (8.4-10.2) mg/dL Total Bilirubin 0.4 (0.2-1.3) mg/dL AST 26 (14-36) U/L ALT 11 (6-35) U/L Alkaline Phosphatase 55 (38-126) U/L Total Protein 6.6 (6.3-8.2) g/dL Albumin 3.5 (3.5-5.1) g/dL Procalcitonin 0.1 ng/mL Nasal MRSA (PCR) Not detected (NOT DETECTE) <Caleb Foote MD - Last Filed: 02/26/25 18:11> Imaging Data Radiologist's impression: ITS Impressions Head CT 02/26/25 09:49 IMPRESSION: 1. No acute intracranial hemorrhage. No mass effect. 2. Small lacunar infarction in the left caudate of indeterminate age. Consider a brain MRI 3. Probable chronic ischemic white matter change. If symptoms persist or worsen, consider a short-term follow-up study or additional imaging for further assessment. Chest X-Ray 02/26/25 09:54 Impression: Bilateral pneumonia. The findings appear progressed compared to the previous study <David Gould APRN - Last Filed: 02/26/25 13:28> Discharge Plan Discharge Clinical Impression: Weakness Pneumonia Qualifiers: Pneumonia type: due to unspecified organism Laterality: bilateral Lung location: lower lobe of lung Qualified Code(s): J18.9 - Pneumonia, unspecified organism <David Gould APRN - Last Filed: 02/26/25 13:28> Patient Disposition: Still a Patient <David Gould APRN - Last Filed: 02/26/25 13:28> Condition: Stable <David Gould APRN - Last Filed: 02/26/25 13:28> Time of Disposition: 13:27 <David Gould APRN - Last Filed: 02/26/25 13:28> 13:27 <Caleb Foote MD - Last Filed: 02/26/25 18:11> Quality NIHSS Nursing Documentation ED NIHSS nursing documentation: reviewed/agree <David Gould APRN - Last Filed: 02/26/25 13:28>
--- OUTSIDE RECORDS SUMMARY | 2025-02-26 09:43 | XMS_ITS | Encounter Summary ---
Author Organization [facility] Address [address] [place] [address] Care Team Providers Care Sample Collector Name Role Phone Jovanny Hoffman MD Primary Care Provider [phone]- [phone] Encounter Details Date Type Department Care Team (Late Contact Info) Description 08/19/2016 Chart Note [facility] Radiation Therapy [address] [place] [address] [place] [address] [place] [address] Social History Tobacco Use Types [...] Description 07/16/2025 10:15 AM CDT Office Visit [facility] Oncology and Hematology - [place] [address] [facility] [address] [place] [address] Mikey Monaco MD [address] [facility] [address] [place] [address] documented as of this encounter Visit Diagnoses Not on filedocumented in this encounter Care Teams Sample Collector Relationship Specialty Start Date End Date Jovanny Hoffman MD PCP - General Family Practice 02/06/17 documented as of this encounter
--- OUTSIDE RECORDS SUMMARY | 2025-02-26 09:43 | XMS_ITS | Clinical Summary ---
Author Organization [facility] Address [address] [place] [address] Care Team Providers Care Front Counter Attendant Name Role Phone Jovanny Hoffman MD Primary Care Provider [phone]- [phone] Allergies Active Allergy Reactions Criticality Noted Date [...] Active Problems Problem Noted Date Diagnosed Date skilled nursing curr use of select alfonso estrogen receptor [...] Encounters Date Type Department Care Team Description 02/11/2025 External Device Data [facility] ABSTRACTION Provider, Abstract 02/04/2025 External Device Data [facility] ABSTRACTION Provider, Abstract 01/14/2025 External Device Data [facility] ABSTRACTION Provider, Abstract 12/17/2024 External Device Data [facility] ABSTRACTION Provider, Abstract 12/03/2024 External Device Data [facility] ABSTRACTION Provider, [...] Description 07/16/2025 10:15 AM CDT Office Visit [facility] Oncology and Hematology - [place] [address] [facility] [address] [place] [address] Mikey Monaco MD [address] [facility] [address] [place] [address] Health Maintenance Due Date Last Done Comments DTAP/TDAP/TD VACCINES (1 - Tdap) 09/27/1964 ZOSTER VACCINE (1 of 2) 1994 PNEUMOCOCCAL VACCINE 50+ YEA RS (2 of 2 - PCV) 04/09/2018 04/09/2017, 04/07/2017 RSV VACCINE (60+ or ) (1 - 1-dose 75+ series) 09/27/2019 OSTEOPOROSIS SCREENING 09/28/2021 09/28/2016 INFLUENZA VACCINE (#1) 2024 01/14/2020, 2018 COVID-19 Vaccine (3 - season) 2024, 06/22/2020 Procedures Procedure Name Priority Date/Time Associated Diagnosis [...] Most Recently Relevant to Health Maintenance Insurance [facility] [place] [place] Address: [facility] [address] [place], [place] [id number] [facility] [place] [place] Address[facility] [address] [place] [address] MEDICAID [place] Care Teams Front Counter Attendant Relationship Specialty Start Date End Date Jovanny Hoffman MD PCP - General Family Practice 02/06/17
[2025-02-26 10:16] LABS: Hematocrit 35.8 % (37.0-47.0); Hemoglobin 10.5 g/dL (12.0-15.0); Immature Granulocyte Percent A 0.6 % (0-0.5); Lymphocytes Absolute Auto 0.57 K/mm3 (0.9-3.2); Mean Corpuscular HGB Conc 29.3 g/dl (32-36); Mean Corpuscular Hemoglobin 27.4 pg (26-34); Mean Corpuscular Volume 93.5 fl (80-100); Nucleated Red Blood Cells Absolute Auto 0.000 K/mm3 (0.0-0.012); Nucleated Red Blood Cells Perc 0.0 % (0.0-0.2); Platelet Count Result 182 k/mm3 (150-375); Red Blood Count 3.83 M/mm3 (4.2-5.4); White Blood Count 5.1 K/mm3 (4.5-10.0)
[2025-02-26 10:38] LABS: Alanine Aminotransferase 11 U/L (6-35); Albumin Level 3.5 g/dL (3.5-5.1); Alkaline Phosphatase 55 U/L (38-126); Aspartate Amino Transferase 26 U/L (14-36); Bilirubin,Total 0.4 mg/dL (0.2-1.3); Blood Urea Nitrogen 13 mg/dL (7-17); Calcium 9.0 mg/dL (8.4-10.2); Carbon Dioxide > 40 mmol/L (22-30); Chloride 87 mmol/L (98-107); Estimated Glomerular Filt Rate > 60; Glucose 86 mg/dL (65-110); Potassium 4.8 mmol/L (3.4-5.0); Sodium 131 mmol/L (137-145); Total Protein 6.6 g/dL (6.3-8.2)
[2025-02-26 10:43] LABS: Hypochromasia 1+
[2025-02-26 10:44] LABS: Schistocytes None Seen; Stomatocytes Occasional
[2025-02-26] MEDS: SODIUM CHLORIDE 0.9% IV 1,000 ML 125 ML IV CONT ×2 (10:57→19:50)
[2025-02-26] MEDS: cefTRIAXone 1 GM in SODIUM CHLORIDE 0.9% IV 50 ML 100 ML IVPB (10:57)
[2025-02-26] MEDS: AZITHROMYCIN IV 500 MG in SODIUM CHLORIDE 0.9% IV 250 ML IVPB (10:57)
[2025-02-26 11:55] LABS: Procalcitonin 0.1 ng/mL
[2025-02-26] MEDS: PIPERACILLIN/TAZOBACTAM SOD 3.375 GM in SODIUM CHLORIDE 0.9% IV 50 ML 100 ML IVPB (12:03)
[2025-02-26 12:04] LABS: MRSA (PCR) NOT DETECTED (NOT DETECTE)
[2025-02-26 12:06] LABS: Add Urine Microscopic? NO; Appearance Urine Clear (Clear); Glucose Urine UA Negative (Negative); Leukocyte Esterase Ur Negative LEU/UL (Negative); Nitrate Urine Negative (Negative); Specific Grav Ur 1.016 (1.001-1.035)
--- NOTE | 2025-02-26 12:43 | PM.IMHP ---
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 Patient denies fevers, chest pain, cough. Her caregiver states she had to increase her O2 flow to 4 L. Patient also complains of dyspnea on exertion. Patient did see her PCP 2 days ago and a chest x-ray was completed showing worsening bilateral pneumonia worsening from a CT performed on 02/10. She was prescribed Augmentin and azithromycin. Patient further reports that her has MRSA and she wants to be tested for MRSA. She denies open wounds or sores. Patient has had falls without injury recently and is generally feeling weaker. Pt sees Dr. Queen with pulmonology outpatient who has been following this chronic pneumonia since her last admission 12/10/24-12/17/24. Initial vital signs 133/76, 76 heart rate, respirations 18, afebrile and 100% on 2 L nasal cannula Labs with WBC 5.1, baseline anemia. Sodium 131, chloride 87, carbon dioxide > 40, creatinine 0.43. UA with 1+ ketones and no signs of infection. MRSA swab negative. Head CT reveals no acute hemorrhage, small lacunar infarct in the left caudate of indeterminate age, probable chronic ischemic white matter changes. Chest x-ray with bilateral pneumonia appearing progressed compared to the previous study Review of Systems Review of Systems: All systems reviewed & are unremarkable except as noted in HPI and below [facility] Past Medical History Medical History Cerebral amyloid angiopathy Pneumonia History of tobacco use disorder Emphysema, unspecified Hx of breast cancer Left breast 2017 treated with radiation therapy Dry eye Other abnormalities of gait and mobility Urinary, incontinence, stress female Anxiety Glaucoma Chronic respiratory failure with hypoxia and hypercapnia Chronic home O2 of 2.5 L COVID-19 virus infection Essential hypertension COPD (chronic obstructive pulmonary disease) With PFTs in 2003 demonstrating severe obstructive ventilatory defect with acute bronchodilator response Surgical History Surgical History Previous section Status post cataract extraction of both eyes with insertion of intraocular lens History of partial mastectomy of left breast July 2016 Family History Family History Father , In his 80s Arthritis Hardening of the arteries of the heart Mother , In her 80s Hypertension Hardening of the arteries of the heart Sibling Breast cancer Social History Social History Social History: Primary care physician: Dr. Jovanny Akins Code status: Modified code no CPR per patient request. She states that if her heart were to stop she is rated go be with God. The patient is okay with a trial of intubation and ventilator support. She is uncertain if she would want tracheostomy. Smoking packs per day: 1 Smoking cigarettes per day: 20.0 Years smoked: 39 Smoking pack-years: 39.00 Smoking status: Former smoker Second hand tobacco smoke exposure: No Additional smoking assessment comments: PT STATES STOPPED SMOKING 1999 Alcohol intake: never Substance use: never Substance use type: does not use Lack of Transportation: No Lack of Food: Never True Current Housing: I Have Housing Concerned About Future Housing: No Difficulty Paying Gas/Electric Bills: No Difficulty Paying for Meds: No Currently Unemployed: No Education: High School Diploma/GED Difficulty w/ Childcare or Family Care: No Living arrangements: with family Additional living arrangements comments: She lives with her of 43 years and 1 of her adult sons. 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 Gender identity (if verbalized by the patient): Female Sexual Orientation (if Verbalized by the Patient): Straight or Heterosexual Spiritual care concerns: No Agree to blood products: Yes Meds Home Medications and Allergies Home Medications ?Medication ?Instructions ?Recorded ?Confirmed ?Type calcium 600 mg (as 1 cap PO DAILY 05/10/19 02/26/25 History carbonate)-vitamin D3 5 mcg (200 unit) capsule (Calcium 600 + D(3)) cyanocobalamin (vitamin B-12) 2,500 mcg PO DAILY 08/04/21 02/26/25 History 2,500 mcg chewable tablet vitamin E (dl, acetate) 450 mg 450 mg PO DAILY 11/02/22 02/26/25 History (1,000 unit) capsule cholecalciferol (vitamin D3) 50 50 mcg PO DAILY 03/07/23 02/26/25 History mcg (2,000 unit) tablet docusate sodium 100 mg capsule 100 mg PO Q12H PRN Constipation 12/17/24 02/26/25 Rx #30 caps ipratropium 0.5 mg-albuterol 3 mg 3 ml inhalation [id number] #90 vials 12/17/24 02/26/25 Rx (2.5 mg base)/3 mL nebulization soln peg [id number] 1 1 drp EACH EYE QID PRN Dry Eye(S) 12/17/24 02/26/25 Rx %-0.2 %-0.2 % eye drops #5 mL (Artificial Tears ([id number])) amlodipine 5 mg tablet 5 mg PO DAILY 12/25/24 02/26/25 History albuterol sulfate 90 mcg/actuation 2 puff inhalation QID PRN 01/22/25 02/26/25 Rx aerosol inhaler Shortness Of Breath #8.5 grams glycopyrrolate 9 mcg-formoterol 2 puff inhalation BID #10.7 grams 01/23/25 02/26/25 Rx 4.8 mcg HFA aerosol inhaler guaifenesin 600 mg tablet, 1,200 mg (2 x 600 mg) PO Q12HR #60 02/11/25 02/26/25 Rx extended release 12 hr (Mucus tabs Relief ER) amoxicillin 875 mg-potassium 1 tablet PO Q12H 02/26/25 02/26/25 History clavulanate 125 mg tablet azithromycin 250 mg tablet 250 mg PO .COMPLEX 02/26/25 02/26/25 History Allergies Allergy/AdvReac Type Severity Reaction Status Date / Time Sulfa (Sulfonamide Allergy Severe INTERNAL Verified 02/26/25 13:31 Antibiotics) BURNING Vital Signs Vital Signs - 24 hr 02/26/25 09:11 02/26/25 09:12 02/26/25 09:15 Temperature Pulse Rate 76 Respiratory Rate Blood Pressure 133/76 Pulse Oximetry 100 100 100 Oxygen Delivery Oxygen Flow Rate 02/26/25 09:23 02/26/25 09:30 02/26/25 09:31 Temperature 98.1 F Pulse Rate 78 75 77 Respiratory Rate 18 13 17 Blood Pressure 135/67 139/59 L Pulse Oximetry 100 100 100 Oxygen Delivery Room Air Oxygen Flow Rate 02/26/25 10:14 02/26/25 11:00 02/26/25 11:15 Temperature Pulse Rate 76 76 Respiratory Rate 21 H 18 Blood Pressure 135/61 Pulse Oximetry 96 100 Oxygen Delivery Nasal Cannula Oxygen Flow Rate 2 02/26/25 11:30 02/26/25 11:45 Temperature Pulse Rate 76 73 Respiratory Rate 14 19 Blood Pressure Pulse Oximetry 100 Oxygen Delivery Oxygen Flow Rate Exam Narrative: GENERAL: Chronically ill appearing, in no acute distress. HEAD: Normocephalic, atraumatic. EYES: PERRLA. Conjunctivae clear. NOSE: Normal no drainage. THROAT: Pharynx clear, no exudate. NECK: Trachea midline. No adenopathy, no masses. RESPIRATORY: Airway patent, respirations nonlabored. Crackles heard at bases bilaterally. No wheezes CARDIOVASCULAR: Regular rate and rhythm. BREASTS: Defer GASTROINTESTINAL: Abdomen is soft and nontender. No organomegaly. Bowel sounds normal in all quadrants. GENITOURINARY: Defer MUSCULOSKELETAL: Moves all extremities. No gross deformities. No calf tenderness. SKIN: Warm, dry, normal color. Right leg with trace edema. No redness or tenderness. NEURO: A&O X4 but forgetful. Speech clear PSYCHIATRIC: Normal interaction H&P: Results Labs Labs: Short CBC 02/26/25 Range/Units 10:09 WBC 5.1 (4.5-10.0) K/mm3 Hgb 10.5 L (12.0-15.0) g/dL Hct 35.8 L (37.0-47.0) % Plt Count 182 (150-375) k/mm3 BMP 02/26/25 10:09 Sodium 131 L Potassium 4.8 Chloride 87 L Carbon Dioxide > 40 H BUN 13 Creatinine 0.43 L Glucose 86 Calcium 9.0 Liver Function 02/26/25 Range/Units 10:09 Total Bilirubin 0.4 (0.2-1.3) mg/dL AST 26 (14-36) U/L ALT 11 (6-35) U/L Alkaline Phosphatase 55 (38-126) U/L Albumin 3.5 (3.5-5.1) g/dL Urine 02/26/25 Range/Units 12:01 Urine Color Yellow (Yellow) Urine Appearance Clear (Clear) Urine pH 8.0 (5.0-9.0) Ur Specific [place] 1.016 (1.001-1.035) Urine Protein Negative (Negative) mg/dL Urine Glucose (UA) Negative (Negative) mg/dL Assessment and Plan Assessment and plan (1) Pneumonia: Qualifiers: Laterality: bilateral Lung location: lower lobe of lung Pneumonia type: due to unspecified organism Qualified Code(s): J18.9 - Pneumonia, unspecified organism Code(s): J18.9 - Pneumonia, unspecified organism Status: Acute Assessment and Plan: Patient presents with increased dyspnea on exertion. Patient denies fevers, chest pain, cough. Her caregiver states she had to increase her O2 flow to 4 L. Patient did see her PCP 2 days ago and a chest x-ray was completed showing worsening bilateral pneumonia worsening from a CT performed on 02/10. She was prescribed Augmentin and azithromycin. Chest x-ray with bilateral pneumonia appearing progressed compared to the previous study. Patient does have a history of severe emphysema. Wears 2 L at baseline.Pt sees Dr. Queen with pulmonology outpatient who has been following this chronic pneumonia since her last admission 12/10/24-12/17/24. - started on azithromycin and ceftriaxone on 02/26 - MRSA PCR negative - Viral PCR ordered -Legionella urine antigen ordered - sputum culture unobtainable due to lack of sputum production -continue home O2 at 2 L -DuoNeb q.6 p.r.n. -Mucinex 600 Q 12 -acetaminophen 650 Q 4 p.r.n. -pulmonology consult (2) Cerebral amyloid angiopathy: Code(s): E85.4 - Organ-limited amyloidosis; I68.0 - Cerebral amyloid angiopathy Status: Chronic Assessment and Plan: Scattered foci of old microhemorrhage in the cerebrum, most commonly seen with amyloid angiopathy or chronic hypertensive encephalopathy seen on MRI performed on 02/16. Patient has an appointment with Neurology on 06/18/2025 for her amyloidosis. Daughter at bedside feels that patient ?forgetful? recently. CT head today reveals no acute hemorrhage, small lacunar infarct in the left caudate of indeterminate age, probable chronic ischemic white matter changes. MRI brain was recommended to follow up on the lacunar infarct. Brain MRI today as follows:No acute intracranial process.Small old infarcts in the bilateral thalami and moderate scattered nonspecific periventricular predominant white matter T2 hyperintensity consistent with chronic small vessel ischemic disease A few unchanged scattered foci of old microhemorrhage in the cerebrum most typically seen with hypertension or amyloid angiopathy. Indeterminate 2.3 x 1.8 x 0.5 cm flap pedunculated lesion arising from the left parietal scalp. Correlate with physical exam. -neurology consult to follow for cerebral amyloid angiopathy-await recommendations (3) COPD (chronic obstructive pulmonary disease): Qualifiers: COPD type: unspecified COPD Qualified Code(s): J44.9 - Chronic obstructive pulmonary disease, unspecified Code(s): J44.9 - Chronic obstructive pulmonary disease, unspecified Status: Chronic Assessment and Plan: Wears 2 L O2 baseline at home. Patient denies fevers, chest pain, cough. History of severe emphysema. Pt sees Dr. Queen with pulmonology outpatient -pulmonology consult - DuoNebs Q6H p.r.n. - home medications: Albuterol inhaler, glycopyrrolate- formoterol, DuoNeb -continue glycopyrrolate- formoterol -continue home O2 at 2 L (4) HTN (hypertension): Qualifiers: Hypertension type: primary hypertension Qualified Code(s): I10 - Essential (primary) hypertension Code(s): I10 - Essential (primary) hypertension Status: Chronic Assessment and Plan: Initial BP 133/76 -continue amlodipine 5 mg daily Plan Diet: Heart healthy GI prophylaxis: None DVT prophylaxis: SCDs lines/drains: PIV Fluids: NS at 125 started on 02/26 Code status: No CPR-mechanical ventilation okay Quality VTE Prophylaxis VTE prophylaxis: mechanical ordered Hospitalist MIPS Advance Care Plan I have confirmed that the patient's Advanced Care Plan is present, code status is documented, or surrogate decision maker is listed in patient medical record.: Yes Medication Reconciliation I have utilized all available resources to obtain, update and review the patients current medications (includes all prescriptions, OTC, herbals, cannabis, and nutritional supplements).: Yes
--- OUTSIDE RECORDS SUMMARY | 2025-02-26 13:05 | XMS_ITS | Encounter Summary ---
Author Organization [facility] Address [address] [place] [address] Care Team Providers Care Wheel Tuner Name Role Phone Jovanny Hoffman MD Primary Care Provider [phone]- [phone] Encounter Details Date Type Department Care Team (Late Contact Info) Description 08/19/2016 Chart Note [facility] Radiation Therapy [address] [place] [address] [place] [address] [place] [address] Social History Tobacco Use Types [...] Description 07/16/2025 10:15 AM CDT Office Visit [facility] Oncology and Hematology - [place] [address] [facility] [address] [place] [address] Mikey Monaco MD [address] [facility] [address] [place] [address] documented as of this encounter Visit Diagnoses Not on filedocumented in this encounter Care Teams Wheel Tuner Relationship Specialty Start Date End Date Jovanny Hoffman MD PCP - General Family Practice 02/06/17 documented as of this encounter
--- OUTSIDE RECORDS SUMMARY | 2025-02-26 13:05 | XMS_ITS | Clinical Summary ---
Author Organization [facility] Address [address] [place] [address] Care Team Providers Care Fire Management Officer Name Role Phone Jovanny Hoffman MD Primary Care Provider +1- [phone] Allergies Active Allergy Reactions Criticality Noted Date [...] Active Problems Problem Noted Date Diagnosed Date [facility]CC curr use of select alfonso estrogen receptor [...] Description 07/16/2025 10:15 AM CDT Office Visit [facility] Oncology and Hematology - [place] [address] [facility] [address] [place] [address] Mikey Monaco MD [address] [facility] [address] [place] [address] Health Maintenance Due Date Last [...] Most Recently Relevant to Health Maintenance Insurance [facility] [address] [place], [place] [id number] MEDICAID [place] Care Teams Fire Management Officer Relationship Specialty Start Date End Date Jovanny Hoffman MD PCP - General Family Practice 02/06/17
--- OUTSIDE RECORDS SUMMARY | 2025-02-26 13:05 | XMS_ITS | Clinical Summary ---
Author Organization [facility] Address [address] [place] [address] Care Team Providers Care Bag Worker Name Role Phone Jovanny Hoffman MD Primary Care Provider [phone]- [phone] Allergies Active Allergy Reactions Criticality Noted Date [...] tablet by mouth. Active Vitamins-Lipotro pics (COMPLEX [id number]) Tab CR Take 1 tablet by mouth daily. Active fluticasone-salm eterol 500-50 MCG/DOSE inhalerIndicatio ns:Chronic obstructive pulmonary disease, unspecified COPD type (CMS/HCC HHS/HCC) INHALE 1 DOSE BY MOUTH TWICE DAILY 180 each 3 1 Active tiotropium (SPIRIVA HANDIHALER) 18 MCG inhalation capsuleIndicatio ns:Chronic obstructive pulmonary disease, unspecified COPD type (CMS/HCC HHS/HCC) Inhale 1 puff by mouth once daily 90 capsule 3 1 Active albuterol sulfate HFA (PROAIR HFA) 108 (90 Base) MCG/ACT inhalerIndicatio ns:Chronic obstructive pulmonary disease, unspecified COPD type (CMS/HCC HHS/HCC) Inhale 2 puffs into the lungs every 6 (six) hours as needed for Wheezing. 6.7 g 6 1 Active AZITHROMYCIN 250 MG tabletIndication s:Chronic obstructive pulmonary disease, unspecified COPD type (CMS/HCC HHS/HCC) TAKE 1 TABLET BY MOUTH THREE TIMES A WEEK 30 tablet 3 1 Active RESTASIS 0.05 % ophthalmic emulsion 1 Active Active Problems Problem Noted Date Diagnosed Date Aromatase inhibitor use 10/11/2017 History of external beam radiation therapy 10/11 Lymphedema of breast 10/11/2017 Age-related osteoporosis wit hout current pathological fracture 11/09/2016 Vitamin D deficiency 11/09/2016 Chronic respiratory failure with hypoxia 017 Malignant neoplasm of breast 10/07/2016 COPD exacerbation 10/07/2016 Acute on chronic respiratory failure with hypoxe ju 09/27/2016 COPD (chronic obstructive pulmonary disease) Essential hypertension 09/27/2016 Post-menopausal 09/21/2016 Malignant neoplasm of upper- outer quadrant of left female breast 08/17/2016 Immunizations Immunization Administration Dates Next Due [...] Comments Blood Pressure 134/70 04/12/2021 9:48 AM CHEMISTRY DEPARTMENT CHAIR Pulse 83 04/12/2021 9:48 AM CHEMISTRY DEPARTMENT CHAIR Temperature 36.7 C (98 F) 04/12/2021 9:48 AM CHEMISTRY DEPARTMENT CHAIR Respiratory Rate 18 04/12/2021 9:48 AM CHEMISTRY DEPARTMENT CHAIR Oxygen Saturation 91% 04/12/2021 9:4 8 AM CHEMISTRY DEPARTMENT CHAIR 2L pulse dose Inhaled Oxygen Concentration - - Weight 50.8 kg (111 lb 14.4 oz) 04/12/2021 9:48 AM CHEMISTRY DEPARTMENT CHAIR Height 152.4 cm (5') 04/12/2021 9:48 AM CHEMISTRY DEPARTMENT CHAIR Body Mass Index 21.85 04/12/2021 9:48 AM CHEMISTRY DEPARTMENT CHAIR Plan of Treatment Health Maintenance Due Date Last Done Comments DTaP, Tdap and Td Vaccines (1 - Tdap) 09/27/1964 Zoster Vaccines (1 of 2) 1994 Annual Medicare Wellness Visit 2009 Dexa Scan (General) 2009 Pneumococcal Vaccine: 50+ Years (2 of 2 - PCV) 04/09/2018 04/09/2017 RSV Immunization or 60+ Years (1 - 1-dose 75+ series) 09/27/2019 COVID-19 Vaccine (3 - season) 2024 07/13/2020, 06/22/2020 Influenza Adult (#1) 2025 01/14/2020, 01/15/2019, 04/09/2018, Additional history exists Hepatitis A Vaccines Aged Out No long er eligible based on patient's age to complete this topic Meningococcal B Vaccine Aged Out No l onger eligible based on patient's age to complete this topic Meningococcal Vaccine Aged Out No evelio wendy eligible based on patient's age to complete this topic RSV Immunizations Under 20 Months Aged Out No longer eligible based on patient's age to complete this topic Insurance [facility] MEDICAID Care Teams Bag Worker Relationship Specialty Start Date End Date Jovanny Hoffman MD [address] [address] PCP - General FAMILY PRACTICE 03/05/18
--- NOTE | 2025-02-26 13:28 | PC.NURSE ---
fluids infusing per order
--- NOTE | 2025-02-26 13:35 | ADMGEN ---
This patient, Ritu Liao, was admitted to 3 Med Surg Room 316-02. Patient/family oriented to hospital policies and general routines including ID bracelet, bed and alarms, visiting hours, pain management, procedures, bathroom and other care routines, personal items, smoking policy, room service/diet, and visiting hours. Information on how to activate the Rapid Response Team has been discussed. Patient/Family are encouraged to report perceived risks to care and to ask questions if they do not understand what they are told or what they should do.
--- NOTE | 2025-02-26 13:53 | PC.NURSE ---
Patient and daughter unsure of current home medication list.
--- NOTE | 2025-02-26 14:17 | PC.NURSE ---
Verified current prescribed home medication with [facility], [place], [place].
--- NOTE | 2025-02-26 15:00 | PC.NURSE ---
To MRI per stretcher.
--- NOTE | 2025-02-26 15:45 | PC.NURSE ---
Returned to room from MRI per wheelchair.
[2025-02-26 17:37] LABS: Influenza A QL RT-PCR Negative (Negative); Influenza B QL RT-PCR Negative (Negative); RSV RNA, RT-PCR Negative (Negative); SARS-CoV-2 RNA PCR Negative (Negative)
[2025-02-26] MEDS: guaiFENesin 12 HR 600 MG TABCR 1200 MG PO (19:49)
[2025-02-27] VITALS (18 sets, daily range): BP systolic 98–145; BP diastolic 53–69; PULSE 60–100; RESP 14–22; TEMP 36.3–36.8; O2SAT 93–100; BMI 18.0
[2025-02-27 05:39] LABS: Hematocrit 33.9 % (37.0-47.0); Hemoglobin 9.7 g/dL (12.0-15.0); Immature Granulocyte Percent A 0.3 % (0-0.5); Lymphocytes Absolute Auto 0.61 K/mm3 (0.9-3.2); Mean Corpuscular HGB Conc 28.6 g/dl (32-36); Mean Corpuscular Hemoglobin 26.9 pg (26-34); Mean Corpuscular Volume 94.2 fl (80-100); Nucleated Red Blood Cells Absolute Auto 0.000 K/mm3 (0.0-0.012); Nucleated Red Blood Cells Perc 0.0 % (0.0-0.2); Platelet Count Result 173 k/mm3 (150-375); Red Blood Count 3.60 M/mm3 (4.2-5.4); White Blood Count 5.7 K/mm3 (4.5-10.0)
[2025-02-27 06:16] LABS: Basophilic Stippling Occasional; Hypochromasia 1+; Schistocytes None Seen
[2025-02-27 06:22] LABS: Alanine Aminotransferase 9 U/L (6-35); Albumin Level 2.8 g/dL (3.5-5.1); Alkaline Phosphatase 49 U/L (38-126); Anion Gap -2 mmol/L (4-12); Aspartate Amino Transferase 20 U/L (14-36); Bilirubin,Total 0.3 mg/dL (0.2-1.3); Blood Urea Nitrogen 6 mg/dL (7-17); Calcium 8.1 mg/dL (8.4-10.2); Carbon Dioxide 39 mmol/L (22-30); Chloride 96 mmol/L (98-107); Estimated Glomerular Filt Rate > 60; Glucose 78 mg/dL (65-110); Potassium 3.7 mmol/L (3.4-5.0); Sodium 133 mmol/L (137-145); Total Protein 5.5 g/dL (6.3-8.2)
[2025-02-27] MEDS: SODIUM CHLORIDE 0.9% IV 1,000 ML 125 ML IV CONT (06:29)
[2025-02-27] MEDS: UMECLIDINIUM/VILANTEROL 62.5-25 MCG ELLIPTA 1 PUFF INHALATION (07:23)
--- NOTE | 2025-02-27 07:38 | P.PNIM_ITS ---
Progress Note: A&P Assessment and Plan (1) Pneumonia: Qualifiers: Laterality: bilateral Lung location: lower lobe of lung Pneumonia type: due to unspecified organism Qualified Code(s): J18.9 - Pneumonia, unspecified organism Code(s): J18.9 - Pneumonia, unspecified organism Status: Acute Assessment and Plan: Patient presents with increased dyspnea on exertion. Patient denies fevers, chest pain, cough. Her caregiver states she had to increase her O2 flow to 4 L. Patient did see her PCP 2 days ago and a chest x-ray was completed showing worsening bilateral pneumonia worsening from a CT performed on 02/10. She was prescribed Augmentin and azithromycin. Chest x-ray with bilateral pneumonia appearing progressed compared to the previous study. Patient does have a history of severe emphysema. Wears 2 L at baseline.Pt sees Dr. Queen with pulmonology outpatient who has been following this chronic pneumonia since her last admission 12/10/24-12/17/24. - started on azithromycin and ceftriaxone on 02/26 - MRSA PCR negative - Viral PCR ordered -Legionella urine antigen ordered - sputum culture unobtainable due to lack of sputum production -continue home O2 at 2 L -DuoNeb q.6 p.r.n. -Mucinex 600 Q 12 -acetaminophen 650 Q 4 p.r.n. -pulmonology consulted - switched antibiotics to cefepime to cover for pseudomonas. BiPAP as below. (2) Acute on chronic respiratory failure with hypoxia and hypercapnia: Code(s): J96.21 - Acute and chronic respiratory failure with hypoxia; J96.22 - Acute and chronic respiratory failure with hypercapnia Status: Acute Assessment and Plan: - patient chronically requiring 2L NC - ABG 02/27 with pH 7.308, pCO2 81, pO2 76.9 - started on BiPAP this AM. Conitnue qHS and with naps - transfer to IMU - management of pneumonia as above (3) Cerebral amyloid angiopathy: Code(s): E85.4 - Organ-limited amyloidosis; I68.0 - Cerebral amyloid angiopathy Status: Chronic Assessment and Plan: -Scattered foci of old microhemorrhage in the cerebrum, most commonly seen with amyloid angiopathy or chronic hypertensive encephalopathy seen on MRI performed on 02/16. Patient has an appointment with Neurology on 06/18/2025 for her amyloidosis. Daughter at bedside feels that patient ?forgetful? recently. CT head today reveals no acute hemorrhage, small lacunar infarct in the left caudate of indeterminate age, probable chronic ischemic white matter changes. MRI brain was recommended to follow up on the lacunar infarct. 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 A few unchanged scattered foci of old microhemorrhage in the cerebrum most typically seen with hypertension or amyloid angiopathy. Indeterminate 2.3 x 1.8 x 0.5 cm flap pedunculated lesion arising from the left parietal scalp. Correlate with physical exam. -neurology consult to follow for cerebral amyloid angiopathy-unclear if changes are related to hypertensive or amyloid angiopathy. Recommended outpatient follow-up. (4) COPD (chronic obstructive pulmonary disease): Qualifiers: COPD type: unspecified COPD Qualified Code(s): J44.9 - Chronic obstructive pulmonary disease, unspecified Code(s): J44.9 - Chronic obstructive pulmonary disease, unspecified Status: Chronic Assessment and Plan: Wears 2 L O2 baseline at home. Patient denies fevers, chest pain, cough. History of severe emphysema. Pt sees Dr. Queen with pulmonology outpatient -pulmonology consulted as above - Amber Q6H p.r.n. - home medications: Albuterol inhaler, glycopyrrolate- formoterol, DuoNeb -continue glycopyrrolate- formoterol -continue home O2 at 2 L (5) HTN (hypertension): Qualifiers: Hypertension type: primary hypertension Qualified Code(s): I10 - Essential (primary) hypertension Code(s): I10 - Essential (primary) hypertension Status: Chronic Assessment and Plan: Initial BP 133/76 -continue amlodipine 5 mg daily Plan Diet: Heart healthy GI prophylaxis: None DVT prophylaxis: SCDs, Lovenox Code status: No CPR-mechanical ventilation okay Subjective Date/time seen: 02/27/25 07:38 Interval history: Patient seen and examined at bedside while on BiPAP. Breathing feels stable this AM. Denies productive cough. Confirmed patient's code status - no CPR, but okay for intubation. Discussed plan of care with Dr. Queen. Review of Systems Review of Systems: All systems reviewed & are unremarkable except as noted in HPI and below Exam Narrative: General: NAD, frail Eyes: EOMI ENT: neck supple Cardiovascular: Regular rate and rhythm Respiratory: Clear to auscultation (limited exam due to BiPAP),, respirations even and unlabored on BiPAP Gastrointestinal: Soft, non tender Genitourinary: no suprapubic tenderness Musculoskeletal: No edema Skin: warm, dry Neuro: Alert and oriented x4. Psych: Mood appropriate Objective Data Vital Signs Vital Signs: Vital Signs - 24 hr 02/26/25 09:11 02/26/25 09:12 02/26/25 09:15 Temperature Pulse Rate 76 Respiratory Rate Blood Pressure 133/76 Pulse Oximetry 100 100 100 Oxygen Delivery Oxygen Flow Rate 02/26/25 09:23 02/26/25 09:30 02/26/25 09:31 Temperature 98.1 F Pulse Rate 78 75 77 Respiratory Rate 18 13 17 Blood Pressure 135/67 139/59 L Pulse Oximetry 100 100 100 Oxygen Delivery Room Air Oxygen Flow Rate 02/26/25 10:14 02/26/25 11:00 02/26/25 11:15 Temperature Pulse Rate 76 76 Respiratory Rate 21 H 18 Blood Pressure 135/61 Pulse Oximetry 96 100 Oxygen Delivery Nasal Cannula Oxygen Flow Rate 2 02/26/25 11:30 02/26/25 11:45 02/26/25 13:26 Temperature Pulse Rate 76 73 Respiratory Rate 14 19 Blood Pressure Pulse Oximetry 100 100 Oxygen Delivery Nasal Cannula Oxygen Flow Rate 2 02/26/25 14:00 02/26/25 19:40 02/26/25 20:30 Temperature 97.9 F Pulse Rate 70 76 73 Respiratory Rate 18 18 Blood Pressure 132/69 Pulse Oximetry 100 97 93 Oxygen Delivery Nasal Cannula Autopap Oxygen Flow Rate 2 02/26/25 22:00 02/27/25 03:15 02/27/25 05:58 Temperature 99 F 97.3 F L Pulse Rate 74 66 66 Respiratory Rate 18 19 18 Blood Pressure 129/80 136/61 Pulse Oximetry 97 97 100 Oxygen Delivery Autopap Oxygen Flow Rate 02/27/25 07:24 02/27/25 07:25 Temperature Pulse Rate 98 Respiratory Rate 20 Blood Pressure Pulse Oximetry 100 Oxygen Delivery Nasal Cannula Oxygen Flow Rate 2 Intake/Output Intake/Output: Intake & Output 02/24/25 02/25/25 02/26/25 02/27/25 23:59 23:59 23:59 23:59 Intake Total 790 1225 Balance 790 1225 Meds/Results Medications: Active Medications Generic Name Dose Route Start Last Admin Trade Name Freq PRN Reason Stop Dose Admin Acetaminophen 650 mg 02/26/25 16:46 Acetaminophen 325 Mg Tablet PO Q4H PRN Mild Pain (1-3) or Fever Albuterol/Ipratropium 3 ml 02/26/25 14:00 Ipratropium 0.5 Mg/Albuterol Sulfate 2.5 Mg (Base) Ampul.Neb 3 Ml INHALATION Q6HRT PRN Shortness Of Breath Or Wheezing Amlodipine Besylate 5 mg 02/27/25 09:00 Amlodipine Besylate 5 Mg Tablet PO DAILY [facility] Calcium Carbonate 500 mg 02/27/25 09:00 Calcium/Vitamin D 500 Mg/5 Mcg (200 I.U.) Tablet PO DAILY [facility] Cyanocobalamin 500 mcg 02/27/25 09:00 Cyanocobalamin 500 Mcg Tablet PO DAILY [facility] Cyanocobalamin 2,000 mcg 02/27/25 09:00 Cyanocobalamin 1,000 Mcg Tablet PO DAILY [facility] Docusate Sodium 100 mg 02/26/25 15:25 Docusate Sodium 100 Mg Capsule PO Q12H PRN Constipation Guaifenesin 1,200 mg 02/26/25 21:00 02/26/25 19:49 Guaifenesin 12 Hr 600 Mg Tabcr PO 1,200 mg Q12HR DONNA Administration Sodium Chloride 1,000 mls @ 125 mls/hr 02/26/25 11:55 02/27/25 06:29 Normal Saline Iv IV CONT 125 mls/hr .Q8H DONNA Administration Ceftriaxone Sodium 1 gm/ 50 mls @ 100 mls/hr 02/27/25 12:00 Sodium Chloride IVPB Q24H DONNA Azithromycin 500 mg/ Sodium 250 mls @ 250 mls/hr 02/27/25 11:00 Chloride IVPB 03/03/25 11:59 Q24H DONNA Umeclidinium/Vilanterol 1 puff 02/27/25 09:00 02/27/25 07:23 Umeclidinium/Vilanterol 62.5-25 Mcg Ellipta INHALATION 1 puff DAILY [facility] Administration Vitamin D 50 mcg 02/27/25 09:00 Cholecalciferol (Vitamin D3) 25 Mcg (1,000 Units) Tablet PO DAILY [facility] Vitamin E 1,000 unit 02/27/25 09:00 Vitamin E 1,000 Unit Capsule PO DAILY [facility] Radiology Results: ITS Impressions Head CT 02/26/25 09:49 IMPRESSION: 1. No acute intracranial hemorrhage. No mass effect. 2. Small lacunar infarction in the left caudate of indeterminate age. Consider a brain MRI 3. Probable chronic ischemic white matter change. If symptoms persist or worsen, consider a short-term follow-up study or additional imaging for further assessment. Chest X-Ray 02/26/25 09:54 Impression: Bilateral pneumonia. The findings appear progressed compared to the previous study Brain MRI 02/26/25 15:47 IMPRESSION: 1. No acute intracranial process. 2. 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 3. A few unchanged scattered foci of old microhemorrhage in the cerebrum most typically seen with hypertension or amyloid angiopathy. 4. Indeterminate 2.3 x 1.8 x 0.5 cm flap pedunculated lesion arising from the left parietal scalp. Correlate with physical exam. Labs Labs: Laboratory Results - last 24 hr 02/26/25 02/26/25 02/26/25 10:09 10:43 12:01 WBC 5.1 RBC 3.83 L Hgb 10.5 L Hct 35.8 L MCV 93.5 MCH 27.4 MCHC 29.3 L RDW 15.4 H Plt Count 182 MPV 8.8 Immature Gran % (Auto) 0.6 H Neut % (Auto) 76.8 H Lymph % (Auto) 11.3 L [place] % (Auto) 10.3 H Eos % (Auto) 0.4 Baso % (Auto) 0.6 Lymph # (Auto) 0.57 L [place] # (Auto) 0.5 Eos # (Auto) 0.0 Baso # (Auto) 0.0 Abs Immat Gran (auto) 0.03 Absolute Neuts (auto) 3.9 Absolute Nucleated RBC 0.000 Band Neutrophils % Not Reportable Nucleated RBC % 0.0 Platelet Estimate Adequate Hypochromasia 1+ Basophilic Stippling Stomatocytes Occasional Schistocytes None seen Sodium 131 L Potassium 4.8 Chloride 87 L Carbon Dioxide > 40 H Anion Gap BUN 13 Creatinine 0.43 L Estim Creat Clear Calc Not Reportable Estimated GFR > 60 Glucose 86 Lactic Acid 0.7 Calcium 9.0 Total Bilirubin 0.4 AST 26 ALT 11 Alkaline Phosphatase 55 Total Protein 6.6 Albumin 3.5 Procalcitonin 0.1 Urine Color Yellow Urine Appearance Clear Urine pH 8.0 Ur Specific [place] 1.016 Urine Protein Negative Urine Glucose (UA) Negative Urine Ketones 1+ H Ur Blood (Man) Negative Urine Nitrate Negative Urine Bilirubin Negative Urine Urobilinogen 1.0 Leukocyte Esterase Rfl Negative Nasal MRSA (PCR) Not detected Influenza A (RT-PCR) Influenza B (RT-PCR) RSV (RT-PCR) SARS-CoV-2 RNA (RT-PCR) 02/26/25 02/27/25 16:55 05:26 WBC 5.7 RBC 3.60 L Hgb 9.7 L Hct 33.9 L MCV 94.2 MCH 26.9 MCHC 28.6 L RDW 15.8 H Plt Count 173 MPV 9.2 Immature Gran % (Auto) 0.3 Neut % (Auto) 78.2 H Lymph % (Auto) 10.6 L [place] % (Auto) 10.3 H Eos % (Auto) 0.3 Baso % (Auto) 0.3 Lymph # (Auto) 0.61 L [place] # (Auto) 0.6 Eos # (Auto) 0.0 Baso # (Auto) 0.0 Abs Immat Gran (auto) 0.02 Absolute Neuts (auto) 4.5 Absolute Nucleated RBC 0.000 Band Neutrophils % Not Reportable Nucleated RBC % 0.0 Platelet Estimate Adequate Hypochromasia 1+ Basophilic Stippling Occasional Stomatocytes Schistocytes None seen Sodium 133 L Potassium 3.7 Chloride 96 L Carbon Dioxide 39 H Anion Gap -2 L BUN 6 L D Creatinine 0.36 L Estim Creat Clear Calc Not Reportable Estimated GFR > 60 Glucose 78 Lactic Acid Calcium 8.1 L Total Bilirubin 0.3 AST 20 ALT 9 Alkaline Phosphatase 49 Total Protein 5.5 L Albumin 2.8 L Procalcitonin Urine Color Urine Appearance Urine pH Ur Specific [place] Urine Protein Urine Glucose (UA) Urine Ketones Ur Blood (Man) Urine Nitrate Urine Bilirubin Urine Urobilinogen Leukocyte Esterase Rfl Nasal MRSA (PCR) Influenza A (RT-PCR) Negative Influenza B (RT-PCR) Negative RSV (RT-PCR) Negative SARS-CoV-2 RNA (RT-PCR) Negative Quality VTE Prophylaxis VTE prophylaxis: mechanical ordered and pharmacologic ordered
[2025-02-27 08:16] LABS: CRP 6.1 mg/dL (<1.0); NT Pro B Type Natriuretic Pept 770 pg/mL (19.9-100)
[2025-02-27 08:37] LABS: Thyroid Stimulating Hormone 1.460 uIU/mL (0.465-4.680)
--- NOTE | 2025-02-27 08:53 | PCRCNOTE ---
ABG late due to pt being in Cat scan
[2025-02-27 09:17] LABS: Free T4 Free Thyroxine 1.21 ng/dL (0.78-2.19)
[2025-02-27 09:23] LABS: Alveolar/Arterial O2 Gradient 27.0 mmHg; Fractional Inspired Oxygen 28 %; HCO3 ABG 39.7 mEq/l (22.0-26.0); Oxygen Content ABG 15.6 %vol (16.0-22.0); Oxygen Saturation ABG 93.4 % (95.0-100.0); PO2 ABG 76.9 mmHg (80.0-100.0); PO2 FiO2 Ratio Arterial Blood 2.75 %
[2025-02-27 09:24] LABS: PCO2 ABG 81.1 mmHg (35.0-45.0)
[2025-02-27 09:29] LABS: Modified Allen's Test Pass; Site Drawn RIGHT RADIAL
[2025-02-27 09:30] LABS: Liters per Minute 2.0 LPM
[2025-02-27 09:30] LABS: Procalcitonin 0.1 ng/mL
[2025-02-27] MEDS: VITAMIN E 1,000 UNIT CAPSULE 1000 UNIT PO (09:34)
[2025-02-27] MEDS: CALCIUM/VITAMIN D 500 MG/5 MCG (200 I.U.) TABLET PO (09:34)
[2025-02-27] MEDS: CHOLECALCIFEROL (VITAMIN D3) 25 MCG (1,000 UNITS) TABLET 50 MCG PO (09:34)
[2025-02-27] MEDS: CYANOCOBALAMIN 1,000 MCG TABLET 2000 MCG PO (09:34)
[2025-02-27] MEDS: guaiFENesin 12 HR 600 MG TABCR 1200 MG PO ×2 (09:34→21:02)
[2025-02-27] MEDS: CYANOCOBALAMIN 500 MCG TABLET PO (09:35)
--- NOTE | 2025-02-27 09:53 | PM.CNPUL ---
Assessment and Plan Assessment and plan (1) Pneumonia: Code(s): J18.9 - Pneumonia, unspecified organism Status: Acute Assessment and Plan: 12/09/2024 through 12/17/24:? Patient admitted to [facility] with worsening cough, shortness of breath, weakness, wheezing.? Patient had a leukocytosis, ABG on 1 L 7.53/44/ oxygen not measured.? CT angiogram of the chest compared to 05/06/2021 with severe singh lobular emphysema and dense infiltrates with new consolidations in the right upper lobe, right middle lobe and left upper lobe.? I felt this was pneumonia and not a COPD exacerbation.? Treated with steroids, bronchodilators, azithromycin and ceftriaxone.? Patient had a history of Pseudomonas in 2019 and her MRSA swab was positive and she was changed to vancomycin and Levaquin.? discharged on linezolid 600 mg p.o. q.12 hours and Levaquin 750 Q 48 hours to complete a total of 10 days. patient was seen in the clinic on 01/15/2025 and had improved clinically. I ordered a CT scan for 02/05/2025 to follow her infiltrates. 02/05/2025: CT scan of the chest showed bilateral upper lobe consolidations and infiltrates with improvement on the right and worsening on the left compared to 12/09/2024. I talked to the patient on 02/11/2025 and she was doing well exercise tolerance had improved, denied any infectious complaints her weight was stable and her appetite was good. Minimal phlegm in the morning and I suspected her left upper lobe worsening was related to mucus rather than progressive pneumonia. I started guaifenesin 1200 b.i.d., Cornet flutter valve Q 2-4 hours while she is awake. Plan was to repeat a CT scan in 6 months. 02/26/2025: Patient presents with 4 day history of worsening weakness, confusion, dyspnea on exertion and increased oxygen requirements. She denies fever, chills, rigors, phlegm production or hemoptysis. She is afebrile. She has new leukocytosis. Her procalcitonin is 0.1 yesterday. MRSA swab is negative. Chest x-ray with increased left upper lobe infiltrate and was started on ceftriaxone, azithromycin given 1 dose of Zosyn. 02/27/25: Patient was in no respiratory distress on 2 L nasal cannula saturations 98%. Afebrile. White blood cell count 5.7, creatinine 0.36. BNP 770, CRP 6.1, TSH 1.46, free T4 1.21, procalcitonin 0.1. COVID, influenza, RS V RT PCR assay negative. CT scan of the chest shows no significant change in her left upper lobe greater than right upper lobe infiltrates since 02/05/2025. New very small bilateral pleural effusions. Improvement in her right middle lobe collapse. Plan: Her right upper lobe and right lower lobe infiltrates from 12/09/2024 had responded to vancomycin, Levaquin followed by linezolid and Levaquin outpatient treatment for total of 10 days. She has a persistent anterior segment of the left upper lobe dense consolidation with air bronchogram that has not changed from CT scan on 02/05/2025 to today. Discussed with ID pharmacy and at this time will cover for Pseudomonas with cefepime 2 g q.12 hours and continue azithromycin. I have ordered respiratory pathogen panel, urine for Legionella, urine for pneumococcal and serum mycoplasma IgM. Will follow patient clinically. Discussed with Josie Valdes, will follow with you. (2) Chronic respiratory failure with hypoxia and hypercapnia: Code(s): J96.11 - Chronic respiratory failure with hypoxia; J96.12 - Chronic respiratory failure with hypercapnia Status: Acute Assessment and Plan: Patient with chronic hypoxemic respiratory failure with last home O2 assessment on 02/05/2025 requiring 1 L at rest and 4 L with activity. Patient with chronic hypercarbic respiratory failure on home noninvasive ventilation since May 06, 2021 with [facility]APS [facility] Download from [employer] from 10/15/2024 through 12/17/2024: Patient is on IVAPSauto EPAP, breath rate is 10, target alveolar ventilation 5.2 L, minimum EPAP 7, maximal EPAP 10, minimum pressure support 8, maximal pressure support 20. Rise time 200 msec.? % of days used 4 more hours is 84%.? Average usage on days used is 6 hour 22 minutes.? AHI 0.5.? Apnea index 0.0.? Hypopnea index 0.5. ?Median respiratory rate 14, median alveolar ventilation 6.2.? Median tidal volume is 486 mL, median minute ventilation is 6.6, median EPAP 8.2.? Median peak pressure is 17.6.? Median leak 0.0, 95th percentile leak 22.5. I interpret this download as good compliance with adequate pressures and low leak.? 02/27/25: Patient was in no respiratory distress on 2 L nasal cannula saturations 98%. She is on 2 L nasal cannula decreased her to 1 L nasal cannula her saturations were 88%. I ordered a stat ABG on 2 L nasal cannula 7.. Patient was placed on noninvasive ventilation with the AVAPS mode And settings were adjusted to comfort resulting in rate of 14, tidal volume 500, EPAP 8, minimal inspiratory pressure 9, maximal inspiratory pressure 25, inspiratory time 1.0, rise of 5 and 36% FiO2. Plan: Patient to wear noninvasive ventilation with the AVAPS mode during the day p.r.n. and she should wear this the 10 night. I will obtain an overnight oximetry and an ABG prior to removal in the morning. (3) COPD (chronic obstructive pulmonary disease): Qualifiers: COPD type: unspecified COPD Qualified Code(s): J44.9 - Chronic obstructive pulmonary disease, unspecified Code(s): J44.9 - Chronic obstructive pulmonary disease, unspecified Status: Chronic Assessment and Plan: GOLD grade 4 group B COPD COPD diagnosed in 1999 with chronic hypoxic and hypercarbic respiratory failure on noninvasive ventilation and on home oxygen 2.0 L 24-7. Tobacco use (40 PY quit 2010). 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 PFTs 07/16/2020 with an FEV1 of 0.41 L, 24% predicted, ratio 28%, air trapping, hyperinflation and a moderately decreased DLCO when adjusted for alveolar volume. CTA on 05/06/2021 with severe panlobular emphysema in all lung hector. In patient exacerbation 05/06/2021 through 05/11/2021, Outpatient exacerbation 06/15/2021. outpatient COPD Exacerbation 11/03/2023. 01/10/2022 with a white blood cell count of 6.7, eosinophils 0.6%=40/uL. 07/18/2022: White blood cell count 5.6, eosinophils 0.4% equal 22 per micro L. 06/26/2023: White blood cell count 5.6, eosinophils 0.2%=11/uL. Patient has been on noninvasive ventilation at night since 05/11/2021. Outpatient exacerbation 11/03/2023. 04/15/2024. inpatient admission for pneumonia 12/09/2024 through 12/17/2024. home O2 assessment 02/05/2025 required 1 L a at rest and 4 L with activity admitted to the hospital on 02/24/2025 with worsening weakness, confusion, dyspnea on exertion and infiltrate in the left upper lobe that is increased since 12/16/2024. She has had no wheezing. 02/27/2025: Patient with no wheezing on exam. She has no increase in her phlegm production and no purulence sputum. I do not believe this is a COPD exacerbation but with concerns for pneumonia. Plan: I do not believe this is a COPD exacerbation. Patient does have worsening hypoxemic and hypercarbic respiratory failure and she is currently on noninvasive ventilation. I will place her on DuoNebs q.4 hours. I will hold off on inhaled or systemic steroids at this time. History of Present Illness History of Present Illness Consult date: 02/27/25 Chief complaint: Pneumonia Narrative: 02/27/2025: This is a new pulmonary consult for COPD, pneumonia and respiratory failure. Patient with history of gold grade 4 group E COPD with chronic hypoxemic respiratory failure requiring 1 L at rest and 4 L with activity and chronic hypercarbic respiratory failure since May 06 2021 requiring home noninvasive ventilation with IVAPS auto EPAP with 4 L bleed in at night. Patient is followed in the Pulmonary Clinic in last seen on 01/22/2025. This is a copy of that note. 12/09/2024 through 12/17/24:? Patient admitted to [facility] with worsening cough, shortness of breath, weakness, wheezing.? Patient had a leukocytosis, ABG on 1 L 7.53/44/ oxygen not measured.? CT angiogram of the chest compared to 05/06/2021 with severe singh lobular emphysema and dense infiltrates with new consolidations in the right upper lobe, right middle lobe and left upper lobe.? I felt this was pneumonia and not a COPD exacerbation.? Treated with steroids, bronchodilators, azithromycin and ceftriaxone.? Patient had a history of Pseudomonas in 2019 and her MRSA swab was positive and she was changed to vancomycin and Levaquin.? She continued to improve and on 12/13/2024 she was on 1 L at rest.? She tolerated her home NIV with 4 L bleed in, her overnight oximetry had no desaturations less than or equal to 88%.? Patient was discharged on 12/17/24 on linezolid 600 mg p.o. q.12 hours last dose 12/21/2024, Levofloxacin 750 mg p.o. Q 48 hours, last dose 12/21/2024 (both to complete 10 days).? Continue her Wixela 250-50 1 puff b.i.d., tiotropium 18 mcg q.day, rescue albuterol, guaifenesin 1200 p.o. b.i.d., Cornet flutter valve and her home NIV through [facility] [place] with 4 L bleed in. Home O2 assessment demonstrated she requires 1 L at rest and 3 with activity. 01/15/25: ?PCP office visit note.? Patient presents with concerns for recurrent falls 3 times this year.? Last fall was about 2 days ago while attempting to get up.? States she would spin and go out of control.? Denies preceding shortness of breath or chest pain.? Denies injuries.? MRI ordered.? Fall precautions discussed.? Recommend home PT and OT.? Follow-up 1 month Today on 01/22/25 she tells me that She completed her medicines after her hospitalization and she has no hospitalizations or exacerbations since 12/17/2024. Overall the patient tells me she is improving since her hospitalization. She is getting stronger and walking more around her trailer. She does 2 laps with a cane now. Her breathing does not limit her. Her M MRC grade is 3. She has no fever, no hemoptysis. She produces phlegm 1 time in the morning. The patient is taking Wixela 250-50 at 1 puff b.i.d., tiotropium 18 mcg at 1 puff q.day, albuterol nebulizer 1 time a day and she is not using any rescue albuterol or rescue levalbuterol. She is no longer taking guaifenesin 1200 p.o. b.i.d.. She is not smoking or exposed to secondhand smoke. patient is prescribed 1 L at rest but wearing 2 L at rest with saturations 90-93%. She is prescribed 3 L with activity and wearing 3-1/2 L and saturations with activity or 84-85%. She stops takes deep breaths through her nose and expires through her mouth and her saturations improve after 30 seconds to 1 minute. At night she is wearing 3-1/2 L and prescribed 4 L with her noninvasive ventilator. When her Oxymizer is put on 4 L the patient tells me she gets a yellow light this says no oxygen. Her CAT score is 12. She is up-to-date on her influenza vaccine, she is unwilling to receive the COVID booster and she has already received the RSV vaccine. The patient is wearing her fullface mask every night. she has a good clinical benefit. She lives in a trailer with no I service and we were unable to obtain a download. Download from [employer] from 10/15/2024 through 12/17/2024: Patient is on IVAPSauto EPAP, breath rate is 10, target alveolar ventilation 5.2 L, minimum EPAP 7, maximal EPAP 10, minimum pressure support 8, maximal pressure support 20. Rise time 200 msec.? % of days used 4 more hours is 84%.? Average usage on days used is 6 hour 22 minutes.? AHI 0.5.? Apnea index 0.0.? Hypopnea index 0.5. ?Median respiratory rate 14, median alveolar ventilation 6.2.? Median tidal volume is 486 mL, median minute ventilation is 6.6, median EPAP 8.2.? Median peak pressure is 17.6.? Median leak 0.0, 95th percentile leak 22.5. I interpret this download as good compliance with adequate pressures and low leak.? Plan: patient with 1 outpatient exacerbation in the last year, pneumonia requiring hospitalization 12/06/2024 and low peripheral eosinophilia less than 100 I prescribed Anoro Ellipta and discontinued her Wixela and Spiriva. I order Home O2 assessment and CT scan of the chest. 02/05/2025: Home O2 assessment: Rest room air saturation 87%. Rest nasal cannula 1 L saturation 90%. Exercise nasal cannula 1 L saturation 88%. Exercise 2 L nasal cannula saturation 86%. Exercise 3 L nasal cannula saturation 88%. Exercise 4 L saturation 91%. Patient requires 1 L at rest and 4 with activity. 02/05/2025: CT scan of the chest showed bilateral upper lobe consolidations and infiltrates with improvement on the right and worsening on the left compared to 12/09/2024. I talked to the patient on 02/11/2025 and she was doing well exercise tolerance had improved, denied any infectious complaints her weight was stable and her appetite was good. Minimal phlegm in the morning and I suspected her left upper lobe worsening was related to mucus rather than progressive pneumonia. I started guaifenesin 1200 b.i.d., Cornet flutter valve Q 2-4 hours while she is awake. Plan was to repeat a CT scan in 6 months. Patient was confused and I spoke to her caregiver who sees or 3 times a week. Over the last 3 or 4 days the patient was weak and confused with worsening dyspnea on exertion but no fever, chills, change in her cough, change in her phlegm production or hemoptysis. The patient saw her PCP on 02/25/2024 and she was on 4 L nasal cannula saturations 94%. A chest x-ray was ordered which showed right upper lobe, right lower lobe infiltrates with no change since 12/16/2024 and a left upper lobe infiltrate that was worse since 12/16/2024. The patient was prescribed Augmentin and azithromycin. 02/26/2025 the patient had worse weakness and confusion and the caregiver called her PCP who told her to bring her to the emergency department. Blood pressure was 132/69 heart rate 70, respirations 18, saturations on 2 L were 100%. Patient had no wheezes. White blood cell count 5.1, eosinophils 0.4%. Creatinine 0.43, bicarb greater than 40, lactic acid 0.7, procalcitonin 0.1, MRSA swab negative. Chest x-ray showed increased left upper lobe and right upper lobe infiltrates compared to 02/24/2025. Patient was started on ceftriaxone, azithromycin and given 1 dose of Zosyn and admitted to the floor. 02/27/2025: Patient was in no respiratory distress on 2 L nasal cannula saturations 98%. She knew her name, knew this was [facility], knew the date and knew [place] was the [place]. She followed simple commands. She told me her breathing was worse than normal but denied fever, chills or rigors. She said she had increased cough with no phlegm and no hemoptysis. She complained of being extremely weak. She is on 2 L nasal cannula decreased her to 1 L nasal cannula her saturations were 88%. White blood cell count 5.7, creatinine 0.36. BNP 770, CRP 6.1, TSH 1.46, free T4 1.21, procalcitonin 0.1. COVID, influenza, RS V RT PCR assay negative. I ordered a stat ABG on 2 L nasal cannula 7.. Patient was placed on noninvasive ventilation with the AVAPS mode And settings were adjusted to comfort resulting in rate of 14, tidal volume 500, EPAP 8, minimal inspiratory pressure 9, maximal inspiratory pressure 25, inspiratory time 1.0, rise of 5 and 36% FiO2. DATA: 02/27/25: EXAMINATION: CT diagnostic chest wo con INDICATION: pneumonia COMPARISON: 02/05/2025 FINDINGS: Severe emphysema. Again seen is consolidation in the bilateral upper lobes and the lingula which appears unchanged since the most recent prior study but which has significantly improved in the right upper lobe since earlier study from 12/09/2024. The opacities in the left upper lobe and lingula have largely developed since the study on 12/09/2024 which should be most consistent with pneumonia. Interval resolution of prior right middle lobe collapse. Calcified nodules in the right lower lobe along with calcified right hilar lymph and multiple small splenic calcifications nodes consistent with old granulomatous disease. Small bilateral posterior layering pleural effusions, right greater than left. Heart size is normal. Atherosclerotic coronary artery calcifications. No pericardial effusion. Thoracic aorta is normal in caliber. No pathologically enlarged thoracic lymphadenopathy. Tiny renal stones layering dependently in a few of the calyces of the right kidney. There is mild right hydronephrosis. Thoracic kyphosis and mild dextrocurvature with mild spondylosis. IMPRESSION: 1. No significant interval change in multifocal pneumonia in the bilateral upper lobes and lingula. 2. New small bilateral posterior layering pleural effusions. 3. Interval resolution of prior right middle lobe collapse. 4. Severe emphysema. 5. Right-sided nephrolithiasis with mild right hydronephrosis. Consider further evaluation with CT of the abdomen and pelvis to assess for more distal obstructing stone or mass. ? 12/17/2024: Home O2 assessment:? Rest room air saturation 87%.? Rest nasal cannula 1 L saturation 94%.? Exercise nasal cannula 1 L saturation 84%.? Exercise nasal cannula 2 L saturation 86%.? Exercise nasal cannula 3 L saturation 91%.? Patient requires 1 L at rest and 3 with activity. 12/13/24: Patient wore home noninvasive ventilator AVAPS-AE, breath rate is 10, tidal volume 520, minimum EPAP 7, maximal EPAP 10, minimum pressure support 8, maximal pressure support 20. inspiratory time 0.6. Rise time 2.0, with 4 L bleed in and had an overnight oximetry with recording duration of 6 hours and 18 minutes. Average saturation 96%. Low saturation 92%. Time with saturation less than or equal to 88% was 0 minutes. Oxygen desaturation index 0. 12/12/24: Echo Summary 1. Complete two-dimensional, color flow and Doppler transthoracic echocardiogram is performed. 2. Left ventricular chamber dimension is normal. 3. Left ventricular systolic function is normal, estimated at 60-65. 4. The left ventricular diastolic function is grade I diastolic dysfunction. 5. E/e' 9 is minimally elevated. 6. There is moderate aortic valve sclerosis. 7. There is trace mitral valve regurgitation. Right Ventricle Right ventricular chamber dimension is normal. Right ventricular systolic function is normal and with TAPSE 1.7 cm. Left Atria Left atrial chamber dimension is normal. Right Atria Right atrial chamber dimension is normal. 12/09/24: EXAMINATION: CTA chest PE protocol INDICATION: Shortness of breath COMPARISON: 05/06/2021 FINDINGS: No pulmonary emboli. Severe emphysema. There is septal line thickening and fluid filling of the cystic airspaces in the right upper lobe with dense region of consolidation in the suprahilar region consistent with pneumonia. Is also a small region of peripheral consolidation along a band of scarring in the left upper lobe which could also represent atelectasis or pneumonia. Very small right pleural effusion. Heart size is normal. Atherosclerotic coronary artery calcific location. No pericardial effusion. Thoracic aorta is normal in caliber with no dissection. No pathologically enlarged thoracic lymphadenopathy. Likely benign 6 mm low-attenuation nodule in the right thyroid lobe. Multiple splenic calcific lesions consistent with old granulomatous disease. Couple small regions of cortical scarring at the left kidney consistent with sequela of prior infection or infarction. Visualized upper abdomen is otherwise unremarkable. Mild thoracic spondylosis. IMPRESSION: 1. No pulmonary embolism. 2. Severe emphysema with extensive airspace disease in the right upper lobe including dense consolidation in the suprahilar region consistent with pneumonia. Possible additional small region of pneumonia versus atelectasis at the peripheral left upper lobe. 3. Very small right pleural effusion. 06/18/2024: Overnight oximetry on noninvasive ventilator with 5 L bleed in. Recording duration 2 hours and 38 minutes. Basal saturation 96.6%. High saturation 99%. Low saturation 90%. Time with saturation less than or equal to 88% was 0 minutes. Oxygen desaturation index is 0. I will continue noninvasive ventilator with 5 L bleed in at night. 05/08/2023: Alpha 1 anti trypsin genotype MM, normal ??05/11/2021:? Home O2 assessment.? Rest room air saturations 85%, rest 1 L nasal cannula saturation 87%, rest 2 L nasal cannula saturation 94%, ambulation 2 L saturation 90%.? Patient requires 2 L with rest and with activity. ?05/06/21 EXAMINATION: CTA chest PE protocol ??INDICATION: SOB. ??Comparison is made to prior examination from 02/08/2017. ??FINDINGS:? Pulmonary arteries are well opacified and without intraluminal filling defects. ? No thoracic aortic dissection.? There is severe emphysema. Dependent subsegmental atelectasis.? Some endobronchial debris in the bronchus intermedius.? There is no mediastinal, hilar or axillary lymphadenopathy. ? There is no pneumothorax. ? Heart normal in size. ? There is mild coronary arterial calcification, arterial sclerosis.? Upper abdomen is unremarkable. ? There is thoracic spondylosis without osteoblastic or osteolytic lesions identified. ??IMPRESSION: ??1.? Dependent subsegmental atelectasis. ??2.? Some endobronchial debris. ??3.? Severe emphysema. ??4.? No pulmonary emboli. ?? ?07/16/2020: I have a report from PFTs at [facility]? [facility]. ??This is a pulmonary function test with pre and post-bronchodilator spirometry, plethysmography and diffusing capacity.? ?Findings: ?Spirometry: ? There is decreased maximal expiratory airflow at all lung volumes with the concave expiratory flow tracing.? The contour of the inspiratory flow tracing is normal.? The pre bronchodilator FVC is 1.47 L, 63% predicted.? The pre bronchodilator FEV1 is 0.41 L, 24% predicted.? The pre bronchodilator FEV1:? FVC ratio is 28%.? The post bronchodilator FVC is 1.86 L, representing a 27% increase.? The post bronchodilator FEV1 is 0.47 L, representing a 16% increase.? The post bronchodilator FEV1: FVC ratio is 25%.? ?Plethysmography:? Total lung capacity is 6.11 L, 154% predicted.? The functional residual capacity is 5.34 L, 216% predicted.? The residual volume is 4.64 L, 281% predicted.? ?Plethysmography:? The diffusing capacity unadjusted for hemoglobin and carboxyhemoglobin is 3.0, 21% predicted.? The diffusing capacity adjusted for alveolar volume is 1.79, 53% predicted. ?Impression: There is a very severe obstructive abnormality with significant improvement after inhaling a single dose of albuterol. The increase in residual volume is consistent with air trapping from an obstructive abnormality.? Hyperinflation is present as demonstrated by the increase in functional residual capacity and total lung capacity and is consistent with an obstructive abnormality. The diffusing capacity unadjusted for hemoglobin and carboxyhemoglobin is severely decreased and remains moderately decreased when adjusted for alveolar volume. ?There are no prior studies for comparison ? ??09/25/2003 report no raw data available ??TEST: PFT ??FVC, FEV1, GRB1% decreased. There is acute bronchodilator response. Lung volumes are increased. RAW is increased. DLCO is decreased. ??Impression: Severe obstructive ventilatory defect with acute bronchodilator response. Decreased DLCO. ?08/23/1999: Chest X ray report: ??CHEST ??Indication: Fever. ??Technique: PA and lateral views. ??The lungs are prominently hyperinflated, with flattening of the diaphragm and increased retrosternal air space, consistent with chronic obstructive pulmonary disease. ??There are some increased interstitial markings in the lungs, particularly in the right mid and lower lung field which may be chronic. One cannot exclude some interstitial pneumonitis. Correlation clinically and comparison with prior chest radiographs is recommended. No pulmonary consolidation is evident. There is no pleural effusion. No pulmonary vascular congestion or any apparent adenopathy or pneumothorax is noted. ??The cardiac and mediastinal silhouettes are unremarkable. There is mild aortic calcification. ??IMPRESSION: CHRONIC OBSTRUCTIVE PULMONARY DISEASE. 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 RECOMMEND COMPARISON WITH PRIOR ??CHEST RADIOGRAPHS AND CLINICAL CORRELATION TO ??DIFFERENTIATE ACUTE FROM CHRONIC. Review of Systems Constitutional: Constitutional: Reports no additional constitutional complaints Eyes: Eyes: Reports no additional eye complaints ENT: Reports system reviewed and no additional complaints, except as documented Cardiovascular: Cardiovascular: Reports no additional cardiovascular complaints Respiratory: Respiratory: Reports no additional respiratory complaints Gastrointestinal: Gastrointestinal: Reports no additional gastrointestinal complaints Musculoskeletal: Musculoskeletal: Reports no additional musculoskeletal complaints Neurologic: Reports system reviewed and no additional complaints, except as documented Psychiatric: Psychiatric: Reports no additional psychiatric complaints Endocrine: Endocrine: Reports no additional endocrine complaints Hematologic/Lymphatic: Hematologic/Lymphatic: Reports no additional hematologic/lymphatic complaints Allergic/Immunologic: Allergic/Immunologic: Reports no additional allergic/immunologic complaints [facility] Past Medical History Medical History Cerebral amyloid angiopathy Pneumonia History of tobacco use disorder Emphysema, unspecified Hx of breast cancer Left breast 2017 treated with radiation therapy Dry eye Other abnormalities of gait and mobility Urinary, incontinence, stress female Anxiety Glaucoma Chronic respiratory failure with hypoxia and hypercapnia Chronic home O2 of 2.5 L COVID-19 virus infection Essential hypertension COPD (chronic obstructive pulmonary disease) With PFTs in 2003 demonstrating severe obstructive ventilatory defect with acute bronchodilator response Surgical History Surgical History Previous section Status post cataract extraction of both eyes with insertion of intraocular lens History of partial mastectomy of left breast July 2016 Family History Family History Father , In his 80s Arthritis Hardening of the arteries of the heart Mother , In her 80s Hypertension Hardening of the arteries of the heart Sibling Breast cancer Social History Social History Social History: Primary care physician: Dr. Jovanny Akins Code status: Modified code no CPR per patient request. She states that if her heart were to stop she is rated go be with God. The patient is okay with a trial of intubation and ventilator support. She is uncertain if she would want tracheostomy. Smoking packs per day: 1 Smoking cigarettes per day: 20.0 Years smoked: 39 Smoking pack-years: 39.00 Smoking status: Former smoker Second hand tobacco smoke exposure: No Additional smoking assessment comments: PT STATES STOPPED SMOKING 1999 Alcohol intake: never Substance use: never Substance use type: does not use Lack of Transportation: No Lack of Food: Never True Current Housing: I Have Housing Concerned About Future Housing: No Difficulty Paying Gas/Electric Bills: No Difficulty Paying for Meds: No Currently Unemployed: No Education: High School Diploma/GED Difficulty w/ Childcare or Family Care: No Living arrangements: with family Additional living arrangements comments: She lives with her of 43 years and 1 of her adult sons. 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 Gender identity (if verbalized by the patient): Female Sexual Orientation (if Verbalized by the Patient): Straight or Heterosexual Spiritual care concerns: No Agree to blood products: Yes Meds Home Medications and Allergies Home Medications ?Medication ?Instructions ?Recorded ?Confirmed ?Type calcium 600 mg (as 1 cap PO DAILY 05/10/19 02/26/25 History carbonate)-vitamin D3 5 mcg (200 unit) capsule (Calcium 600 + D(3)) cyanocobalamin (vitamin B-12) 2,500 mcg PO DAILY 08/04/21 02/26/25 History 2,500 mcg chewable tablet vitamin E (dl, acetate) 450 mg 450 mg PO DAILY 11/02/22 02/26/25 History (1,000 unit) capsule cholecalciferol (vitamin D3) 50 50 mcg PO DAILY 03/07/23 02/26/25 History mcg (2,000 unit) tablet docusate sodium 100 mg capsule 100 mg PO Q12H PRN Constipation 12/17/24 02/26/25 Rx #30 caps ipratropium 0.5 mg-albuterol 3 mg 3 ml inhalation [id number] #90 vials 12/17/24 02/26/25 Rx (2.5 mg base)/3 mL nebulization soln peg [id number] 1 1 drp EACH EYE QID PRN Dry Eye(S) 12/17/24 02/26/25 Rx %-0.2 %-0.2 % eye drops #5 mL (Artificial Tears ([id number])) amlodipine 5 mg tablet 5 mg PO DAILY 12/25/24 02/26/25 History albuterol sulfate 90 mcg/actuation 2 puff inhalation QID PRN 01/22/25 02/26/25 Rx aerosol inhaler Shortness Of Breath #8.5 grams glycopyrrolate 9 mcg-formoterol 2 puff inhalation BID #10.7 grams 01/23/25 02/26/25 Rx 4.8 mcg HFA aerosol inhaler guaifenesin 600 mg tablet, 1,200 mg (2 x 600 mg) PO Q12HR #60 02/11/25 02/26/25 Rx extended release 12 hr (Mucus tabs Relief ER) amoxicillin 875 mg-potassium 1 tablet PO Q12H 02/26/25 02/26/25 History clavulanate 125 mg tablet azithromycin 250 mg tablet 250 mg PO .COMPLEX 02/26/25 02/26/25 History Allergies Allergy/AdvReac Type Severity Reaction Status Date / Time Sulfa (Sulfonamide Allergy Severe INTERNAL Verified 02/26/25 13:31 Antibiotics) BURNING Vital Signs Vital Signs - 24 hr 02/26/25 10:14 02/26/25 11:00 02/26/25 11:15 Temperature Pulse Rate 76 76 Respiratory Rate 21 H 18 Blood Pressure 135/61 Pulse Oximetry 96 100 Oxygen Delivery Nasal Cannula Oxygen Flow Rate 2 02/26/25 11:30 02/26/25 11:45 02/26/25 13:26 Temperature Pulse Rate 76 73 Respiratory Rate 14 19 Blood Pressure Pulse Oximetry 100 100 Oxygen Delivery Nasal Cannula Oxygen Flow Rate 2 02/26/25 14:00 02/26/25 19:40 02/26/25 20:30 Temperature 36.6 C Pulse Rate 70 76 73 Respiratory Rate 18 18 Blood Pressure 132/69 Pulse Oximetry 100 97 93 Oxygen Delivery Nasal Cannula Autopap Oxygen Flow Rate 2 02/26/25 22:00 02/27/25 03:15 02/27/25 05:58 Temperature 37.2 C 36.3 C L Pulse Rate 74 66 66 Respiratory Rate 18 19 18 Blood Pressure 129/80 136/61 Pulse Oximetry 97 97 100 Oxygen Delivery Autopap Oxygen Flow Rate 02/27/25 07:24 02/27/25 07:25 Temperature Pulse Rate 98 Respiratory Rate 20 Blood Pressure Pulse Oximetry 100 Oxygen Delivery Nasal Cannula Oxygen Flow Rate 2 Exam Const: General: cooperative and comfortable Orientation/consciousness: oriented to person, oriented to place and oriented to time Other: cachectic HENMT: Head: normal to inspection Ears: hearing grossly normal bilaterally Eyes: General: appearance normal, both eyes and all related structures Neck: Neck: normal visual inspection Chest: Chest palpation & inspection: normal inspection of the chest Resp: Effort & Inspection: normal respiratory effort and able to speak in complete sentences Auscultation: no crackles, no rales, no rhonchi, no wheezes and diminished lung sounds Cardio: Jugular venous distension: no JVD GI: Inspection: normal to inspection GI Palp: No abdominal tenderness Skin: General skin exam: normal color Neuro: General: oriented to person, oriented to place and oriented to time Other: followed simple commands. Extrem: General: normal to inspection Other: No edema Psych: Appearance: grossly normal Results Laboratory Findings 02/27/25 05:26 02/27/25 05:26 ABG, PT/INR, D-dimer: ABG ABG pH 7.308 (7.350-7.450) L 02/27/25 09:09 ABG pCO2 81.1 mmHg (35.0-45.0) H* 02/27/25 09:09 ABG pO2 76.9 mmHg (80.0-100.0) L 02/27/25 09:09 ABG O2 Saturation 93.4 % (95.0-100.0) L 02/27/25 09:09 Abnormal lab findings: Abnormal Labs 02/26/25 02/26/25 02/27/25 10:09 12:01 05:26 RBC 3.83 L 3.60 L Hgb 10.5 L 9.7 L Hct 35.8 L 33.9 L MCHC 29.3 L 28.6 L RDW 15.4 H 15.8 H Immature Gran % (Auto) 0.6 H Neut % (Auto) 76.8 H 78.2 H Lymph % (Auto) 11.3 L 10.6 L [place] % (Auto) 10.3 H 10.3 H Lymph # (Auto) 0.57 L 0.61 L ABG pH ABG pCO2 ABG pO2 ABG HCO3 ABG O2 Saturation ABG O2 Content Total Hemoglobin Sodium 131 L 133 L Chloride 87 L 96 L Carbon Dioxide > 40 H 39 H Anion Gap -2 L BUN 6 L D Creatinine 0.43 L 0.36 L Calcium 8.1 L C-Reactive Protein 6.1 H NT-Pro-B Natriuret Pep 770 H Total Protein 5.5 L Albumin 2.8 L Urine Ketones 1+ H 02/27/25 09:09 RBC Hgb Hct MCHC RDW Immature Gran % (Auto) Neut % (Auto) Lymph % (Auto) [place] % (Auto) Lymph # (Auto) ABG pH 7.308 L ABG pCO2 81.1 H* ABG pO2 76.9 L ABG HCO3 39.7 H ABG O2 Saturation 93.4 L ABG O2 Content 15.6 L Total Hemoglobin 11.8 L Sodium Chloride Carbon Dioxide Anion Gap BUN Creatinine Calcium C-Reactive Protein NT-Pro-B Natriuret Pep Total Protein Albumin Urine Ketones Diagnostic Findings Additional studies: ITS Impressions Head CT 02/26/25 09:49 IMPRESSION: 1. No acute intracranial hemorrhage. No mass effect. 2. Small lacunar infarction in the left caudate of indeterminate age. Consider a brain MRI 3. Probable chronic ischemic white matter change. If symptoms persist or worsen, consider a short-term follow-up study or additional imaging for further assessment. Chest X-Ray 02/26/25 09:54 Impression: Bilateral pneumonia. The findings appear progressed compared to the previous study Brain MRI 02/26/25 15:47 IMPRESSION: 1. No acute intracranial process. 2. 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 3. A few unchanged scattered foci of old microhemorrhage in the cerebrum most typically seen with hypertension or amyloid angiopathy. 4. Indeterminate 2.3 x 1.8 x 0.5 cm flap pedunculated lesion arising from the left parietal scalp. Correlate with physical exam.
--- NOTE | 2025-02-27 11:12 | PCPTNOTE ---
Attempted PT evaluation, pt on AVAPs and being transferred to IMU. Will follow.
--- NOTE | 2025-02-27 12:26 | WPDNEURCNPN ---
Assessment and Plan Assessment and plan (1) Cerebral amyloid angiopathy: Code(s): E85.4 - Organ-limited amyloidosis; I68.0 - Cerebral amyloid angiopathy Status: Chronic (2) HTN (hypertension): Qualifiers: Hypertension type: primary hypertension Qualified Code(s): I10 - Essential (primary) hypertension Code(s): I10 - Essential (primary) hypertension Status: Chronic (3) Hx of breast cancer: Code(s): Z85.3 - Personal history of malignant neoplasm of breast Status: Acute (4) Chronic respiratory failure with hypoxia and hypercapnia: Code(s): J96.11 - Chronic respiratory failure with hypoxia; J96.12 - Chronic respiratory failure with hypercapnia Status: Acute (5) COPD (chronic obstructive pulmonary disease): Qualifiers: COPD type: unspecified COPD Qualified Code(s): J44.9 - Chronic obstructive pulmonary disease, unspecified Code(s): J44.9 - Chronic obstructive pulmonary disease, unspecified Status: Chronic (6) Pneumonia: Code(s): J18.9 - Pneumonia, unspecified organism Status: Acute Plan I reviewed MRI of the brain that shows at least 5 or more micro hemorrhages on the SWI sequence. This can be seen either with a hypertensive or amyloid angiopathy. She is currently quite due to hypercapnia and pulmonary problems and hence a detailed mini-mental status could not be performed. I shall be glad to see her in my office and go over these with the patient's family members also. She lives wit the and also has a daughter. I shall be glad to go over these with them. CT scan of brain was performed which shows old infarct in the left caudate nucleus. Similar finding was noted on MRI of the brain also. Also some white matter changes were noted. Consult date: 02/27/25 HPI: Ritu Liao is a 79 year old female With history of bilateral pneumonia, chronic obstructive pulmonary disease, hypercapnia, history of smoking the past, cancer of the breast and possible cerebral amyloid angiopathy was seen for initial evaluation. Patient has a BiPAP in place in view of the hypercapnia that got worse this morning and hence he is not able to communicate very well. She did seem to be cooperative. Review of Systems Review of Systems: ROS unobtainable: Yes unobtainable due to medical condition PMFSH Past Medical History Medical History Cerebral amyloid angiopathy Pneumonia History of tobacco use disorder Emphysema, unspecified Hx of breast cancer Left breast 2016 treated with radiation therapy Dry eye Other abnormalities of gait and mobility Urinary, incontinence, stress female Anxiety Glaucoma Chronic respiratory failure with hypoxia and hypercapnia Chronic home O2 of 2.5 L COVID-19 virus infection Essential hypertension COPD (chronic obstructive pulmonary disease) With PFTs in 2003 demonstrating severe obstructive ventilatory defect with acute bronchodilator response Surgical History Surgical History Previous section Status post cataract extraction of both eyes with insertion of intraocular lens History of partial mastectomy of left breast July 2016 Family History Family History Father , In his 80s Arthritis Hardening of the arteries of the heart Mother , In her 80s Hypertension Hardening of the arteries of the heart Sibling Breast cancer Social History Social History Social History: Primary care physician: Dr. Jovanny Akins Code status: Modified code no CPR per patient request. She states that if her heart were to stop she is rated go be with God. The patient is okay with a trial of intubation and ventilator support. She is uncertain if she would want tracheostomy. Smoking packs per day: 1 Smoking cigarettes per day: 20.0 Years smoked: 39 Smoking pack-years: 39.00 Smoking status: Former smoker Second hand tobacco smoke exposure: No Additional smoking assessment comments: PT STATES STOPPED SMOKING 1999 Alcohol intake: never Substance use: never Substance use type: does not use Lack of Transportation: No Lack of Food: Never True Current Housing: I Have Housing Concerned About Future Housing: No Difficulty Paying Gas/Electric Bills: No Difficulty Paying for Meds: No Currently Unemployed: No Education: High School Diploma/GED Difficulty w/ Childcare or Family Care: No Living arrangements: with family Additional living arrangements comments: She lives with her of 43 years and 1 of her adult sons. 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 Gender identity (if verbalized by the patient): Female Sexual Orientation (if Verbalized by the Patient): Straight or Heterosexual Spiritual care concerns: No Agree to blood products: Yes Meds Home Medications and Allergies Home Medications ?Medication ?Instructions ?Recorded ?Confirmed ?Type calcium 600 mg (as 1 cap PO DAILY 05/10/19 02/26/25 History carbonate)-vitamin D3 5 mcg (200 unit) capsule (Calcium 600 + D(3)) cyanocobalamin (vitamin B-12) 2,500 mcg PO DAILY 08/04/21 02/26/25 History 2,500 mcg chewable tablet vitamin E (dl, acetate) 450 mg 450 mg PO DAILY 11/02/22 02/26/25 History (1,000 unit) capsule cholecalciferol (vitamin D3) 50 50 mcg PO DAILY 03/07/23 02/26/25 History mcg (2,000 unit) tablet docusate sodium 100 mg capsule 100 mg PO Q12H PRN Constipation 12/17/24 02/26/25 Rx #30 caps ipratropium 0.5 mg-albuterol 3 mg 3 ml inhalation [id number] #90 vials 12/17/24 02/26/25 Rx (2.5 mg base)/3 mL nebulization soln peg [id number] 1 1 drp EACH EYE QID PRN Dry Eye(S) 12/17/24 02/26/25 Rx %-0.2 %-0.2 % eye drops #5 mL (Artificial Tears ([id number])) amlodipine 5 mg tablet 5 mg PO DAILY 12/25/24 02/26/25 History albuterol sulfate 90 mcg/actuation 2 puff inhalation QID PRN 01/22/25 02/26/25 Rx aerosol inhaler Shortness Of Breath #8.5 grams glycopyrrolate 9 mcg-formoterol 2 puff inhalation BID #10.7 grams 01/23/25 02/26/25 Rx 4.8 mcg HFA aerosol inhaler guaifenesin 600 mg tablet, 1,200 mg (2 x 600 mg) PO Q12HR #60 02/11/25 02/26/25 Rx extended release 12 hr (Mucus tabs Relief ER) amoxicillin 875 mg-potassium 1 tablet PO Q12H 02/26/25 02/26/25 History clavulanate 125 mg tablet azithromycin 250 mg tablet 250 mg PO .COMPLEX 02/26/25 02/26/25 History Allergies Allergy/AdvReac Type Severity Reaction Status Date / Time Sulfa (Sulfonamide Allergy Severe INTERNAL Verified 02/26/25 13:31 Antibiotics) BURNING Vital Signs Vital Signs - 24 hr 02/26/25 13:26 02/26/25 14:00 02/26/25 19:40 Temperature 97.9 F Pulse Rate 70 76 Respiratory Rate 18 Blood Pressure 132/69 Pulse Oximetry 100 100 97 Oxygen Delivery Nasal Cannula Nasal Cannula Oxygen Flow Rate 2 2 02/26/25 20:30 02/26/25 22:00 02/27/25 03:15 Temperature 99 F Pulse Rate 73 74 66 Respiratory Rate 18 18 19 Blood Pressure 129/80 Pulse Oximetry 93 97 97 Oxygen Delivery Autopap Autopap Oxygen Flow Rate 02/27/25 05:58 02/27/25 07:24 02/27/25 07:25 Temperature 97.3 F L Pulse Rate 66 98 Respiratory Rate 18 20 Blood Pressure 136/61 Pulse Oximetry 100 100 Oxygen Delivery Nasal Cannula Oxygen Flow Rate 2 02/27/25 10:15 Temperature Pulse Rate Respiratory Rate 15 Blood Pressure Pulse Oximetry 97 Oxygen Delivery BiPAP Oxygen Flow Rate Exam Narrative: Patient awake and alert does seem to be trying to cooperate. She does not appear to aphasia. Cranial nerves grossly intact. Motor system normal power in both upper and lower limbs. No asymmetry. No asterixis 6 or involuntary movements are seen. Results Labs 02/27/25 05:26 02/27/25 05:26 Labs: Short CBC 02/27/25 Range/Units 05:26 WBC 5.7 (4.5-10.0) K/mm3 Hgb 9.7 L (12.0-15.0) g/dL Hct 33.9 L (37.0-47.0) % Plt Count 173 (150-375) k/mm3 BMP 02/27/25 05:26 Sodium 133 L Potassium 3.7 Chloride 96 L Carbon Dioxide 39 H BUN 6 L D Creatinine 0.36 L Glucose 78 Calcium 8.1 L Liver Function 02/27/25 Range/Units 05:26 Total Bilirubin 0.3 (0.2-1.3) mg/dL AST 20 (14-36) U/L ALT 9 (6-35) U/L Alkaline Phosphatase 49 (38-126) U/L Albumin 2.8 L (3.5-5.1) g/dL
[2025-02-27] MEDS: CEFEPIME 2 GM in SODIUM CHLORIDE 0.9% IV 50 ML 100 ML IVPB ×2 (12:53→20:47)
[2025-02-27] MEDS: AZITHROMYCIN IV 500 MG in SODIUM CHLORIDE 0.9% IV 250 ML IVPB (13:24)
--- NOTE | 2025-02-27 16:36 | PCRCNOTE ---
Prepped patient for transport, SpO2:94%, HR:87 on 2L nasal cannula; transported patient on 3L nasal cannula to [id number] from Med/Surg; patient began to moan with no observable distress and desaturated to 56% while connecting to telemetry in room; placed on V60 BiPAP at FiO2:100%, recovered quickly to SpO2:100%, decreased to FiO2:40%. She states that when having an episode like this she experiences blackout. RN and Dr Ott informed. Plan to continue BiPAP through the night with Overnight Oximetry and ABG in the am, prior to removal.
[2025-02-27] MEDS: IPRATROPIUM 0.5 MG/ALBUTEROL SULFATE 2.5 MG (BASE) AMPUL.NEB 3 ML INHALATION (20:15)
[2025-02-28] VITALS (25 sets, daily range): BP systolic 124–150; BP diastolic 63–76; PULSE 54–97; RESP 14–22; TEMP 36.4–36.8; O2SAT 93–100
--- NOTE | 2025-02-28 04:33 | PCRCNOTE ---
Patient did not receive 0200 updraft treatment due to being on an overnight oximetry study. Treatment will resume at 0800.
[2025-02-28 06:02] LABS: Alveolar/Arterial O2 Gradient 58.5 mmHg; Carboxyhemoglobin 0.6 % THb (0-2.0); Fractional Inspired Oxygen 30 %; HCO3 ABG 36.4 mEq/l (22.0-26.0); Methemoglobin ABG 0.1 %THb (0-1.5); Oxygen Content ABG 13.9 %vol (16.0-22.0); Oxygen Saturation ABG 96.3 % (95.0-100.0); PCO2 ABG 59.4 mmHg (35.0-45.0); PO2 ABG 85.6 mmHg (80.0-100.0); PO2 FiO2 Ratio Arterial Blood 2.85 %; Reduced Hemoglobin 3.1 %THb (0-5.0)
[2025-02-28 06:09] LABS: Modified Allen's Test Pass; Site Drawn RIGHT BRACHIAL
[2025-02-28 06:11] LABS: Non-Invasive Vent Rate 14 /MIN
[2025-02-28 06:13] LABS: Non-Invasive Expiratory Pressure 8 CMH2O
--- NOTE | 2025-02-28 06:55 | P.CDI_ITS ---
CDI Query Clarification Request BMI: 19.4 Nutritional Diagnostic Statement: Please refer to the comprehensive nutrition assessment for further information. If you agree with diagnosis of Severe protein calorie malnutrition related to inadequate intake in the setting of chronic respiratory failure and acute pneumonia as evidenced by weight loss 15% (-15lb)/2 months; intakes <75% needs >1 month; severe muscle wasting (temporalis, clavicle, shoulder, interosseous) and fat loss (cheeks, ribs). Please specify severity if known: * Mild * Moderate * Severe * Other/Unknown <Na Pope RN - Last Filed: 02/28/25 06:56> Clarified Diagnosis Clarified Diagnosis: severe protein-calorie malnutrition <LEONCIO Campbell - Last Filed: 03/01/25 14:09>
--- NOTE | 2025-02-28 07:02 | P.PNIM_ITS ---
Progress Note: A&P Assessment and Plan (1) Pneumonia: Qualifiers: Laterality: bilateral Lung location: lower lobe of lung Pneumonia type: due to unspecified organism Qualified Code(s): J18.9 - Pneumonia, unspecified organism Code(s): J18.9 - Pneumonia, unspecified organism Status: Acute Assessment and Plan: Patient presents with increased dyspnea on exertion. Patient denies fevers, chest pain, cough. Her caregiver states she had to increase her O2 flow to 4 L. Patient did see her PCP 2 days ago and a chest x-ray was completed showing worsening bilateral pneumonia worsening from a CT performed on 02/10. She was prescribed Augmentin and azithromycin. Chest x-ray with bilateral pneumonia appearing progressed compared to the previous study. Patient does have a history of severe emphysema. Wears 2 L at baseline.Pt sees Dr. Queen with pulmonology outpatient who has been following this chronic pneumonia since her last admission 12/10/24-12/17/24. - CT chest with new small bilateral posterior layering pleural effusions - MRSA PCR negative - COVID/flu/RSV negative -Legionella urine antigen and sputum culture ordered -continue home O2 at 2 L and BiPAP qHS -DuoNeb q.6 p.r.n. -Mucinex 600 Q 12 -acetaminophen 650 Q 4 p.r.n. -pulmonology consulted - switched antibiotics to cefepime to cover for pseudomonas. Continue azithromycin. BiPAP as below. Discussed with Dr. Queen - plan to continue antibiotics through the weekend and he will follow-up on Monday (2) Acute on chronic respiratory failure with hypoxia and hypercapnia: Code(s): J96.21 - Acute and chronic respiratory failure with hypoxia; J96.22 - Acute and chronic respiratory failure with hypercapnia Status: Acute Assessment and Plan: - patient chronically requiring 2L NC - ABG 02/27 with pH 7.308, pCO2 81, pO2 76.9 - started on BiPAP1 with improvement. Continue home BiPAP per pulm recs. - management of pneumonia as above (3) Cerebral amyloid angiopathy: Code(s): E85.4 - Organ-limited amyloidosis; I68.0 - Cerebral amyloid angiopathy Status: Chronic Assessment and Plan: -Scattered foci of old microhemorrhage in the cerebrum, most commonly seen with amyloid angiopathy or chronic hypertensive encephalopathy seen on MRI performed on 02/16. Patient has an appointment with Neurology on 06/18/2025 for her amyloidosis. Daughter at bedside feels that patient ?forgetful? recently. CT head today reveals no acute hemorrhage, small lacunar infarct in the left caudate of indeterminate age, probable chronic ischemic white matter changes. MRI brain was recommended to follow up on the lacunar infarct. 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 A few unchanged scattered foci of old microhemorrhage in the cerebrum most typically seen with hypertension or amyloid angiopathy. Indeterminate 2.3 x 1.8 x 0.5 cm flap pedunculated lesion arising from the left parietal scalp. Correlate with physical exam. -neurology consult to follow for cerebral amyloid angiopathy-unclear if changes are related to hypertensive or amyloid angiopathy. Recommended outpatient follow-up. (4) COPD (chronic obstructive pulmonary disease): Qualifiers: COPD type: unspecified COPD Qualified Code(s): J44.9 - Chronic obstr uctive pulmonary disease, unspecified Code(s): J44.9 - Chronic obstructive pulmonary disease, unspecified Status: Chronic Assessment and Plan: Wears 2 L O2 baseline at home. Patient denies fevers, chest pain, cough. History of severe emphysema. Pt sees Dr. Queen with pulmonology outpatient -pulmonology consulted as above - Amber Q6H p.r.n. - home medications: Albuterol inhaler, glycopyrrolate- formoterol, DuoNeb -continue glycopyrrolate- formoterol -continue home O2 at 2 L (5) HTN (hypertension): Qualifiers: Hypertension type: primary hypertension Qualified Code(s): I10 - Essential (primary) hypertension Code(s): I10 - Essential (primary) hypertension Status: Chronic Assessment and Plan: Initial BP 133/76 -continue amlodipine 5 mg daily (6) Hydronephrosis, right: Code(s): N13.30 - Unspecified hydronephrosis Status: Acute Assessment and Plan: - CT A/P with chronic R hydronpehrosis and stable renal stones - no flank pain - no intervention warranted Plan DVT prophylaxis: SCDs, Lovenox Code status: No CPR-mechanical ventilation okay Dispo: likely discharge home Monday Subjective Date/time seen: 02/28/25 07:02 Interval history: Patient seen and examined up in chair, feeling much better this morning. Denied significant shortness of breath. Is having a little bit of sputum production today. Denies chest pain. Denies flank pain, blood in the urine or dysuria. Denies history Review of Systems Review of Systems: All systems reviewed & are unremarkable except as noted in HPI and below Exam Narrative: General: NAD, frail Eyes: EOMI ENT: neck supple Cardiovascular: Regular rate and rhythm Respiratory: Clear to auscultation bilaterally, respirations even and unlabored on 2L NC Gastrointestinal: Soft, non tender Genitourinary: no suprapubic tenderness Musculoskeletal: No edema Skin: warm, dry Neuro: Alert and oriented x4. Psych: Mood appropriate Objective Data Vital Signs Vital Signs: Vital Signs - 24 hr 02/27/25 07:24 02/27/25 07:25 02/27/25 08:00 Temperature Pulse Rate 98 Respiratory Rate 20 Blood Pressure Pulse Oximetry 100 100 Oxygen Delivery Nasal Cannula Nasal Cannula Oxygen Flow Rate 2 2 Fraction of Inspired Oxygen 02/27/25 10:15 02/27/25 13:55 02/27/25 14:35 Temperature 97.7 F Pulse Rate 77 Respiratory Rate 15 22 H Blood Pressure 145/53 H Pulse Oximetry 97 93 98 Oxygen Delivery BiPAP BiPAP Oxygen Flow Rate Fraction of Inspired Oxygen 02/27/25 15:10 02/27/25 16:00 02/27/25 16:00 Temperature 98.2 F Pulse Rate 65 69 68 Respiratory Rate 15 Blood Pressure 98/59 L Pulse Oximetry 100 Oxygen Delivery Oxygen Flow Rate Fraction of Inspired Oxygen 02/27/25 18:00 02/27/25 20:00 02/27/25 20:00 Temperature 97.5 F L Pulse Rate 65 61 60 Respiratory Rate 15 Blood Pressure 100/65 Pulse Oximetry 100 Oxygen Delivery Oxygen Flow Rate Fraction of Inspired Oxygen 02/27/25 20:00 02/27/25 20:16 02/27/25 20:28 Temperature Pulse Rate 60 100 61 Respiratory Rate 20 14 14 Blood Pressure Pulse Oximetry 98 Oxygen Delivery BiPAP Oxygen Flow Rate Fraction of Inspired Oxygen 30 02/27/25 20:29 02/27/25 21:34 02/27/25 21:34 Temperature Pulse Rate 61 66 66 Respiratory Rate 14 14 14 Blood Pressure Pulse Oximetry 100 98 98 Oxygen Delivery BiPAP BiPAP BiPAP Oxygen Flow Rate Fraction of Inspired Oxygen 30 02/27/25 22:00 02/27/25 23:58 02/28/25 00:00 Temperature 97.4 F L Pulse Rate 68 68 69 Respiratory Rate 15 Blood Pressure 119/69 Pulse Oximetry 99 Oxygen Delivery Oxygen Flow Rate Fraction of Inspired Oxygen 02/28/25 00:00 02/28/25 00:15 02/28/25 02:00 Temperature Pulse Rate 63 72 64 Respiratory Rate 18 16 Blood Pressure Pulse Oximetry 100 100 Oxygen Delivery BiPAP BiPAP Oxygen Flow Rate Fraction of Inspired Oxygen 02/28/25 02:30 02/28/25 04:00 02/28/25 04:00 Temperature Pulse Rate 65 54 L 62 Respiratory Rate 14 20 Blood Pressure Pulse Oximetry 100 100 Oxygen Delivery BiPAP BiPAP Oxygen Flow Rate Fraction of Inspired Oxygen 02/28/25 04:00 02/28/25 06:00 Temperature 97.6 F Pulse Rate 67 68 Respiratory Rate 14 Blood Pressure 149/70 H Pulse Oximetry 100 Oxygen Delivery Oxygen Flow Rate Fraction of Inspired Oxygen Intake/Output Intake/Output: Intake & Output 02/25/25 02/26/25 02/27/25 02/28/25 23:59 23:59 23:59 23:59 Intake Total 790 1485 50 Output Total 400 Balance 790 1085 50 Meds/Results Medications: Active Medications Generic Name Dose Route Start Last Admin Trade Name Freq PRN Reason Stop Dose Admin Acetaminophen 650 mg 02/26/25 16:46 Acetaminophen 325 Mg Tablet PO Q4H PRN Mild Pain (1-3) or Fever Albuterol/Ipratropium 3 ml 02/26/25 14:00 Ipratropium 0.5 Mg/Albuterol Sulfate 2.5 Mg (Base) Ampul.Neb 3 Ml INHALATION Q6HRT PRN Shortness Of Breath Or Wheezing Albuterol/Ipratropium 3 ml 02/27/25 14:00 02/28/25 04:33 Ipratropium 0.5 Mg/Albuterol Sulfate 2.5 Mg (Base) Ampul.Neb 3 Ml INHALATION Not Given Q6HRT [facility] Amlodipine Besylate 5 mg 02/27/25 09:00 02/27/25 09:35 Amlodipine Besylate 5 Mg Tablet PO 5 mg DAILY [facility] Administration Calcium Carbonate 500 mg 02/27/25 09:00 02/27/25 09:34 Calcium/Vitamin D 500 Mg/5 Mcg (200 I.U.) Tablet PO 500 mg DAILY [facility] Administration Cyanocobalamin 500 mcg 02/27/25 09:00 02/27/25 09:35 Cyanocobalamin 500 Mcg Tablet PO 500 mcg DAILY [facility] Administration Cyanocobalamin 2,000 mcg 02/27/25 09:00 02/27/25 09:34 Cyanocobalamin 1,000 Mcg Tablet PO 2,000 mcg DAILY [facility] Administration Docusate Sodium 100 mg 02/26/25 15:25 Docusate Sodium 100 Mg Capsule PO Q12H PRN Constipation Enoxaparin Sodium 40 mg 02/28/25 09:00 Enoxaparin 40 Mg/0.4 Ml Syringe SUB-Q DAILY [facility] Guaifenesin 1,200 mg 02/26/25 21:00 02/27/25 21:02 Guaifenesin 12 Hr 600 Mg Tabcr PO 1,200 mg Q12HR [facility] Administration Azithromycin 500 mg/ Sodium 250 mls @ 250 mls/hr 02/27/25 11:00 02/27/25 13:24 Chloride IVPB 03/03/25 11:59 250 mls/hr Q24H [facility] Administration Cefepime HCl 2 gm/ Sodium 50 mls @ 100 mls/hr 02/27/25 11:30 02/27/25 21:20 Chloride IVPB Infused Q12HR [facility] Infusion Vitamin D 50 mcg 02/27/25 09:00 02/27/25 09:34 Cholecalciferol (Vitamin D3) 25 Mcg (1,000 Units) Tablet PO 50 mcg DAILY [facility] Administration Vitamin E 1,000 unit 02/27/25 09:00 02/27/25 09:34 Vitamin E 1,000 Unit Capsule PO 1,000 unit DAILY [facility] Administration Radiology Results: ITS Impressions Head CT 02/26/25 09:49 IMPRESSION: 1. No acute intracranial hemorrhage. No mass effect. 2. Small lacunar infarction in the left caudate of indeterminate age. Consider a brain MRI 3. Probable chronic ischemic white matter change. If symptoms persist or worsen, consider a short-term follow-up study or additional imaging for further assessment. Chest X-Ray 02/26/25 09:54 Impression: Bilateral pneumonia. The findings appear progressed compared to the previous study Brain MRI 02/26/25 15:47 IMPRESSION: 1. No acute intracranial process. 2. 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 3. A few unchanged scattered foci of old microhemorrhage in the cerebrum most typically seen with hypertension or amyloid angiopathy. 4. Indeterminate 2.3 x 1.8 x 0.5 cm flap pedunculated lesion arising from the left parietal scalp. Correlate with physical exam. Chest CT 02/27/25 10:35 IMPRESSION: 1. No significant interval change in multifocal pneumonia in the bilateral upper lobes and lingula. 2. New small bilateral posterior layering pleural effusions. 3. Interval resolution of prior right middle lobe collapse. 4. Severe emphysema. 5. Right-sided nephrolithiasis with mild right hydronephrosis. Consider further evaluation with CT of the abdomen and pelvis to assess for more distal obstructing stone or mass. Labs Labs: Laboratory Results - last 24 hr 02/27/25 02/27/25 02/28/25 05:26 09:09 05:50 Puncture Site Right radial Right brachial ABG pH 7.308 L 7.405 ABG pCO2 81.1 H* 59.4 H ABG pO2 76.9 L 85.6 ABG PO2/FiO2 Ratio 2.75 2.85 ABG HCO3 39.7 H 36.4 H ABG O2 Saturation 93.4 L 96.3 ABG O2 Content 15.6 L 13.9 L ABG Base Excess 10.6 10.0 A-a Gradient 27.0 58.5 Oxyhemoglobin 93.9 96.2 Carboxyhemoglobin 0.6 Methemoglobin 0.1 Reduced Hemoglobin 3.1 Total Hemoglobin 11.8 L 10.2 L O2 Delivery Device Nasal cannula Non-invasive vent O2 Liters/Min 2.0 Not Reportable Vent Rate 14 FiO2 28 30 Expiratory Pressure 8 Inspiratory Pressure Not Reportable Sodium 133 L Potassium 3.7 Chloride 96 L Carbon Dioxide 39 H Anion Gap -2 L BUN 6 L D Creatinine 0.36 L Estimated GFR > 60 Glucose 78 Calcium 8.1 L Total Bilirubin 0.3 AST 20 ALT 9 Alkaline Phosphatase 49 C-Reactive Protein 6.1 H NT-Pro-B Natriuret Pep 770 H Total Protein 5.5 L Albumin 2.8 L Procalcitonin 0.1 TSH 1.460 Free T4 1.21 Quality VTE Prophylaxis VTE prophylaxis: mechanical ordered and pharmacologic ordered
[2025-02-28 07:11] LABS: Hematocrit 32.3 % (37.0-47.0); Hemoglobin 9.5 g/dL (12.0-15.0); Immature Granulocyte Percent A 0.3 % (0-0.5); Lymphocytes Absolute Auto 0.66 K/mm3 (0.9-3.2); Mean Corpuscular HGB Conc 29.4 g/dl (32-36); Mean Corpuscular Hemoglobin 27.5 pg (26-34); Mean Corpuscular Volume 93.4 fl (80-100); Nucleated Red Blood Cells Absolute Auto 0.000 K/mm3 (0.0-0.012); Nucleated Red Blood Cells Perc 0.0 % (0.0-0.2); Platelet Count Result 178 k/mm3 (150-375); Red Blood Count 3.46 M/mm3 (4.2-5.4); White Blood Count 3.4 K/mm3 (4.5-10.0)
[2025-02-28 07:51] LABS: Hypochromasia 1+; Schistocytes None Seen
[2025-02-28] MEDS: IPRATROPIUM 0.5 MG/ALBUTEROL SULFATE 2.5 MG (BASE) AMPUL.NEB 3 ML INHALATION ×3 (08:09→20:39)
[2025-02-28 08:16] LABS: Alanine Aminotransferase 9 U/L (6-35); Albumin Level 2.9 g/dL (3.5-5.1); Alkaline Phosphatase 54 U/L (38-126); Anion Gap 1 mmol/L (4-12); Aspartate Amino Transferase 22 U/L (14-36); Bilirubin,Total 0.3 mg/dL (0.2-1.3); Blood Urea Nitrogen 9 mg/dL (7-17); Calcium 8.3 mg/dL (8.4-10.2); Carbon Dioxide 38 mmol/L (22-30); Chloride 95 mmol/L (98-107); Estimated Glomerular Filt Rate > 60; Glucose 69 mg/dL (65-110); Potassium 3.5 mmol/L (3.4-5.0); Sodium 134 mmol/L (137-145); Total Protein 5.6 g/dL (6.3-8.2)
[2025-02-28 08:53] LABS: CRP 4.7 mg/dL (<1.0)
[2025-02-28] MEDS: CEFEPIME 2 GM in SODIUM CHLORIDE 0.9% IV 50 ML 100 ML IVPB ×2 (09:30→20:57)
[2025-02-28] MEDS: ENOXAPARIN 40 MG/0.4 ML SYRINGE SUB-Q (09:30)
[2025-02-28] MEDS: CYANOCOBALAMIN 1,000 MCG TABLET 2000 MCG PO (09:31)
[2025-02-28] MEDS: CHOLECALCIFEROL (VITAMIN D3) 25 MCG (1,000 UNITS) TABLET 50 MCG PO (09:31)
[2025-02-28] MEDS: CYANOCOBALAMIN 500 MCG TABLET PO (09:31)
[2025-02-28] MEDS: CALCIUM/VITAMIN D 500 MG/5 MCG (200 I.U.) TABLET PO (09:31)
[2025-02-28] MEDS: guaiFENesin 12 HR 600 MG TABCR 1200 MG PO ×2 (09:31→20:57)
[2025-02-28] MEDS: VITAMIN E 1,000 UNIT CAPSULE 1000 UNIT PO (09:31)
[2025-02-28] MEDS: AZITHROMYCIN IV 500 MG in SODIUM CHLORIDE 0.9% IV 250 ML IVPB (09:59)
[2025-02-28 11:36] LABS: Procalcitonin 0.7 ng/mL
--- NOTE | 2025-02-28 13:24 | P.PNPL_ITS ---
Progress Note: A&P Assessment and Plan (1) Pneumonia: Code(s): J18.9 - Pneumonia, unspecified organism Status: Acute Assessment and Plan: 12/09/2024 through 12/17/24:? Patient admitted to [facility] with worsening cough, shortness of breath, weakness, wheezing.? Patient had a leukocytosis, ABG on 1 L 7.53/44/ oxygen not measured.? CT angiogram of the chest compared to 05/06/2021 with severe singh lobular emphysema and dense infiltrates with new consolidations in the right upper lobe, right middle lobe and left upper lobe.? I felt this was pneumonia and not a COPD exacerbation.? Treated with steroids, bronchodilators, azithromycin and ceftriaxone.? Patient had a history of Pseudomonas in 2019 and her MRSA swab was positive and she was changed to vancomycin and Levaquin.? discharged on linezolid 600 mg p.o. q.12 hours and Levaquin 750 Q 48 hours to complete a total of 10 days. patient was seen in the clinic on 01/15/2025 and had improved clinically. I ordered a CT scan for 02/05/2025 to follow her infiltrates. 02/05/2025: CT scan of the chest showed bilateral upper lobe consolidations and infiltrates with improvement on the right and worsening on the left compared to 12/09/2024. I talked to the patient on 02/11/2025 and she was doing well exercise tolerance had improved, denied any infectious complaints her weight was stable and her appetite was good. Minimal phlegm in the morning and I suspected her left upper lobe worsening was related to mucus rather than progressive pneumonia. I started guaifenesin 1200 b.i.d., Cornet flutter valve Q 2-4 hours while she is awake. Plan was to repeat a CT scan in 6 months. 02/26/2025: Patient presents with 4 day history of worsening weakness, confusion, dyspnea on exertion and increased oxygen requirements. She denies fever, chills, rigors, phlegm production or hemoptysis. She is afebrile. She has new leukocytosis. Her procalcitonin is 0.1 yesterday. MRSA swab is negative. Chest x-ray with increased left upper lobe infiltrate and was started on ceftriaxone, azithromycin given 1 dose of Zosyn. 02/27/25: Patient was in no respiratory distress on 2 L nasal cannula saturations 98%. Afebrile. White blood cell count 5.7, creatinine 0.36. BNP 770, CRP 6.1, TSH 1.46, free T4 1.21, procalcitonin 0.1. COVID, influenza, RS V RT PCR assay negative. CT scan of the chest shows no significant change in her left upper lobe greater than right upper lobe infiltrates since 02/05/2025. New very small bilateral pleural effusions. Improvement in her right middle lobe collapse. Plan: Her right upper lobe and right lower lobe infiltrates from 12/09/2024 had responded to vancomycin, Levaquin followed by linezolid and Levaquin outpatient treatment for total of 10 days. She has a persistent anterior segment of the left upper lobe dense consolidation with air bronchogram that has not changed from CT scan on 02/05/2025 to today. Discussed with ID pharmacy and at this time will cover for Pseudomonas with cefepime 2 g q.12 hours and continue azithromycin. I have ordered respiratory pathogen panel, urine for Legionella, urine for pneumococcal and serum mycoplasma IgM. Will follow deb swann clinically. 02/28/25: Patient is up sitting in a chair. She says she is breathing better and breathing normal at rest. when she walks to the bathroom she says she is very weak but has no dyspnea on exertion. She denies phlegm or hemoptysis. When I enter the room she is on 2 L nasal cannula saturation 97%. I decreased her 1 L nasal cannula her saturation was 95%. She is afebrile. White blood cell count 3.4, creatinine 0.33. Procalcitonin has increased from 0.1 on 02/27/2025 to 0.7 today. COPD has decreased from 6.1 on 02/27/2025 to 4.7 today. Plan: Will continue treatment for Pseudomonas with cefepime 2 g q.12 hours and azithromycin for total of 5 days. Continue DuoNebs q.6 hours, continue guaifenesin 1200 mg p.o. b.i.d. to help with expectoration. Would continue th leonardo IV antibiotics through the weekend and will re-evaluate patient on 03/03/2025. Pulmonary inpatient consult services will resume on 03/03/2025. Called the on-call physician with questions. Discussed with Josie Valdes, will follow with you. (2) Chronic respiratory failure with hypoxia and hypercapnia: Code(s): J96.11 - Chronic respiratory failure with hypoxia; J96.12 - Chronic respiratory failure with hypercapnia Status: Acute Assessment and Plan: Patient with chronic hypoxemic respiratory failure with last home O2 assessment on 02/05/2025 requiring 1 L at rest and 4 L with activity. Patient with chronic hypercarbic respiratory failure on home noninvasive ventilation since May 06, 2021 with AVAPS auto EPAP through [facility]. Download from [employer] from 10/15/2024 through 12/17/2024: Patient is on IVAPSauto EPAP, breath rate is 10, target alveolar ventilation 5.2 L, minimum EPAP 7, maximal EPAP 10, minimum pressure support 8, maximal pressure support 20. Rise time 200 msec.? % of days used 4 more hours is 84%.? Average usage on days used is 6 hour 22 minutes.? AHI 0.5.? Apnea index 0.0.? Hypopnea index 0.5. ?Median respiratory rate 14, median alveolar ventilation 6.2.? Median tidal volume is 486 mL, median minute ventilation is 6.6, median EPAP 8.2.? Median peak pressure is 17.6.? Median leak 0.0, 95th percentile leak 22.5. I interpret this download as good compliance with adequate pressures and low leak.? 02/27/25: Patient was in no respiratory distress on 2 L nasal cannula saturations 98%. She is on 2 L nasal cannula decreased her to 1 L nasal cannula her saturations were 88%. I ordered a stat ABG on 2 L nasal cannula 7.. Patient was placed on noninvasive ventilation with the AVAPS mode And settings were adjusted to comfort resulting in rate of 14, tidal volume 500, EPAP 8, minimal inspiratory pressure 9, maximal inspiratory pressure 25, inspiratory time 1.0, rise of 5 and 36% FiO2. Plan: Patient to wear noninvasive ventilation with the AVAPS mode during the day p.r.n. and she should wear this the 10 night. I will obtain an overnight oximetry and an ABG prior to removal in the morning. 02/28/2025: Patient wore the hospital noninvasive ventilator with the AVAPS settings as above With 30% FiO2 and said that she slept well. Patient had an overnight oximetry on these settings with recording duration of 8 hours and 19 minutes. Average saturation 99%. Low saturation 92%. Time with saturation less than or equal to 88% was 0 minutes. Oxygen desaturation index 0.1. patient had an ABG prior to removal of the mass with a pH of 7.41/59/86. Plan: Current hospital machine with AVAPS settings as above provide adequate oxygenation and ventilation. Patient's family has brought in her home noninvasive ventilator and will use this tonight with 2 L bleed in and an overnight oximetry and ABG prior to removal. (3) COPD (chronic obstructive pulmonary disease): Qualifiers: COPD type: unspecified COPD Qualified Code(s): J44.9 - Chronic obstructive pulmonary disease, unspecified Code(s): J44.9 - Chronic obstructive pulmonary disease, unspecified Status: Chronic Assessment and Plan: GOLD grade 4 group B COPD COPD diagnosed in 1999 with chronic hypoxic and hypercarbic respiratory failure on noninvasive ventilation and on home oxygen 2.0 L 24-7. Tobacco use (40 PY quit 2010). 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 PFTs 07/16/2020 with an FEV1 of 0.41 L, 24% predicted, ratio 28%, air trapping, hyperinflation and a moderately decreased DLCO when adjusted for alveolar volume. CTA on 05/06/2021 with severe panlobular emphysema in all lung benavidez. In patient exacerbation 05/06/2021 through 05/11/2021, Outpatient exacerbation 06/15/2021. outpatient COPD Exacerbation 11/03/2023. 01/10/2022 with a white blood cell count of 6.7, eosinophils 0.6%=40/uL. 07/18/2022: White blood cell count 5.6, eosinophils 0.4% equal 22 per micro L. 06/26/2023: White blood cell count 5.6, eosinophils 0.2%=11/uL. Patient has been on noninvasive ventilation at night since 05/11/2021. Outpatient exacerbation 11/03/2023. 04/15/2024. inpatient admission for pneumonia 12/09/2024 through 12/17/2024. home O2 assessment 02/05/2025 required 1 L a at rest and 4 L with activity admitted to the hospital on 02/24/2025 with worsening weakness, confusion, dyspnea on exertion and infiltrate in the left upper lobe that is increased since 12/16/2024. She has had no wheezing. 02/27/2025: Patient with no wheezing on exam. She has no increase in her phlegm production and no purulence sputum. I do not believe this is a COPD exacerbation but with concerns for pneumonia. Plan: I do not believe this is a COPD exacerbation. Patient does have worsening hypoxemic and hypercarbic respiratory failure and she is currently on noninvasive ventilation. I will place her on DuoNebs q.4 hours. I will hold off on inhaled or systemic steroids at this time. 02/28/2025: No wheezes. I do not believe the patient is having a COPD exacerbation. Plan: Will continue DuoNebs q.4 hours and follow the patient clinically. Subjective Date/time seen: 02/28/25 13:24 Interval history: 02/27/2025: This is a new pulmonary consult for COPD, pneumonia and respiratory failure. Patient with history of gold grade 4 group E COPD with chronic hypoxemic respiratory failure requiring 1 L at rest and 4 L with activity and chronic hypercarbic respiratory failure since May 06 2021 requiring home noninvasive ventilation with IVAPS auto EPAP with 4 L bleed in at night. Patient is followed in the Pulmonary Clinic in last seen on 01/22/2025. This is a copy of that note. 12/09/2024 through 12/17/24:? Patient admitted to [facility] with worsening cough, shortness of breath, weakness, wheezing.? Patient had a leukocytosis, ABG on 1 L 7.53/44/ oxygen not measured.? CT angiogram of the chest compared to 05/06/2021 with severe singh lobular emphysema and dense infiltrates with new consolidations in the right upper lobe, right middle lobe and left upper lobe.? I felt this was pneumonia and not a COPD exacerbation.? Treated with steroids, bronchodilators, azithromycin and ceftriaxone.? Patient had a history of Pseudomonas in 2019 and her MRSA swab was positive and she was changed to vancomycin and Levaquin.? She continued to improve and on 12/13/2024 she was on 1 L at rest.? She tolerated her home NIV with 4 L bleed in, her overnight oximetry had no desaturations less than or equal to 88%.? Patient was discharged on 12/17/24 on linezolid 600 mg p.o. q.12 hours last dose 12/21/2024, Levofloxacin 750 mg p.o. Q 48 hours, last dose 12/21/2024 (both to complete 10 days).? Continue her Wixela 250-50 1 puff b.i.d., tiotropium 18 mcg q.day, rescue albuterol, guaifenesin 1200 p.o. b.i.d., Cornet flutter valve and her home NIV through [facility] with 4 L bleed in. Home O2 assessment demonstrated she requires 1 L at rest and 3 with activity. 01/15/25: ?PCP office visit note.? Patient presents with concerns for recurrent falls 3 times this year.? Last fall was about 2 days ago while attempting to get up.? States she would spin and go out of control.? Denies preceding shortness of breath or chest pain.? Denies injuries.? MRI ordered.? Fall precautions discussed.? Recommend home PT and OT.? Follow-up 1 month Today on 01/22/25 she tells me that She completed her medicines after her hospitalization and she has no hospitalizations or exacerbations since 12/17/2024. Overall the patient tells me she is improving since her hospitalization. She is getting stronger and walking more around her trailer. She does 2 laps with a cane now. Her breathing does not limit her. Her M MRC grade is 3. She has no fever, no hemoptysis. She produces phlegm 1 time in the morning. The patient is taking Wixela 250-50 at 1 puff b.i.d., tiotropium 18 mcg at 1 puff q.day, albuterol nebulizer 1 time a day and she is not using any rescue albuterol or rescue levalbuterol. She is no longer taking guaifenesin 1200 p.o. b.i.d.. She is not smoking or exposed to secondhand smoke. patient is prescribed 1 L at rest but wearing 2 L at rest with saturations 90- 93%. She is prescribed 3 L with activity and wearing 3-1/2 L and saturations with activity or 84-85%. She stops takes deep breaths through her nose and expires through her mouth and her saturations improve after 30 seconds to 1 minute. At night she is wearing 3-1/2 L and prescribed 4 L with her noninvasive ventilator. When her Oxymizer is put on 4 L the patient tells me she gets a yellow light this says no oxygen. Her CAT score is 12. She is up-to-date on her influenza vaccine, she is unwilling to receive the COVID booster and she has already received the RSV vaccine. The patient is wearing her fullface mask every night. she has a good clinical benefit. She lives in a trailer with no I service and we were unable to obtain a download. Download from [facility] from 10/15/2024 through 12/17/2024: Patient is on IVAPSauto EPAP, breath rate is 10, target alveolar ventilation 5.2 L, minimum EPAP 7, maximal EPAP 10, minimum pressure support 8, maximal pressure support 20. Rise time 200 msec.? % of days used 4 more hours is 84%.? Average usage on days used is 6 hour 22 minutes.? AHI 0.5.? Apnea index 0.0.? Hypopnea index 0.5. ?Median respiratory rate 14, median alveolar ventilation 6.2.? Median tidal volume is 486 mL, median minute ventilation is 6.6, median EPAP 8.2.? Median peak pressure is 17.6.? Median leak 0.0, 95th percentile leak 22.5. I interpret this download as good compliance with adequate pressures and low leak.? Plan: patient with 1 outpatient exacerbation in the last year, pneumonia requiring hospitalization 12/06/2024 and low peripheral eosinophilia less than 100 I prescribed Anoro Ellipta and discontinued her Wixela and Spiriva. I order Home O2 assessment and CT scan of the chest. 02/05/2025: Home O2 assessment: Rest room air saturation 87%. Rest nasal cannula 1 L saturation 90%. Exercise nasal cannula 1 L saturation 88%. Exercise 2 L nasal cannula saturation 86%. Exercise 3 L nasal cannula saturation 88%. Exercise 4 L saturation 91%. Patient requires 1 L at rest and 4 with activity. 02/05/2025: CT scan of the chest showed bilateral upper lobe consolidations and infiltrates with improvement on the right and worsening on the left compared to 12/09/2024. I talked to the patient on 02/11/2025 and she was doing well exercise tolerance had improved, denied any infectious complaints her weight was stable and her appetite was good. Minimal phlegm in the morning and I suspected her left upper lobe worsening was related to mucus rather than progressive pneumonia. I started guaifenesin 1200 b.i.d., Cornet flutter valve Q 2-4 hours while she is awake. Plan was to repeat a CT scan in 6 months. Patient was confused and I spoke to her caregiver who sees or 3 times a week. Over the last 3 or 4 days the patient was weak and confused with worsening dyspnea on exertion but no fever, chills, change in her cough, change in her phlegm production or hemoptysis. The patient saw her PCP on 02/25/2024 and she was on 4 L nasal cannula saturations 94%. A chest x-ray was ordered which showed right upper lobe, right lower lobe infiltrates with no change since 12/16/2024 and a left upper lobe infiltrate that was worse since 12/16/2024. The patient was prescribed Augmentin and azithromycin. 02/26/2025 the patient had worse weakness and confusion and the caregiver called her PCP who told her to bring her to the emergency department. Blood pressure was 132/69 heart rate 70, respirations 18, saturations on 2 L were 100%. Patient had no wheezes. White blood cell count 5.1, eosinophils 0.4%. Creatinine 0.43, bicarb greater than 40, lactic acid 0.7, procalcitonin 0.1, MRSA swab negative. Chest x-ray showed increased left upper lobe and right upper lobe infiltrates compared to 02/24/2025. Patient was started on ceftriaxone, azithromycin and given 1 dose of Zosyn and admitted to the floor. 02/27/2025: Patient was in no respiratory distress on 2 L nasal cannula saturations 98%. She knew her name, knew this was [facility], knew the date and knew [place] was the [place]. She followed simple commands. She told me her breathing was worse than normal but denied fever, chills or rigors. She said she had increased cough with no phlegm and no hemoptysis. She complained of being extremely weak. She is on 2 L nasal cannula decreased her to 1 L nasal cannula her saturations were 88%. White blood cell count 5.7, creatinine 0.36. BNP 770, CRP 6.1, TSH 1.46, free T4 1.21, procalcitonin 0.1. COVID, influenza, RS V RT PCR assay negative. I ordered a stat ABG on 2 L nasal cannula 7.. Patient was placed on noninvasive ventilation with the AVAPS mode And settings were adjusted to comfort resulting in rate of 14, tidal volume 500, EPAP 8, minimal inspiratory pressure 9, maximal inspiratory pressure 25, inspiratory time 1.0, rise of 5 and 36% FiO2. 02/28/25: Patient is up sitting in a chair. She says she is breathing better and breathing normal at rest. when she walks to the bathroom she says she is very weak but has no dyspnea on exertion. She denies phlegm or hemoptysis. When I enter the room she is on 2 L nasal cannula saturation 97%. I decreased her 1 L nasal cannula her saturation was 95%. She is afebrile. White blood cell count 3.4, creatinine 0.33. Procalcitonin has increased from 0.1 on 02/27/2025 to 0.7 today. COPD has decreased from 6.1 on 02/27/2025 to 4.7 today. Patient wore the hospital noninvasive ventilator with the AVAPS settings as above With 30% FiO2 and said that she slept well. Patient had an overnight oximetry on these settings with recording duration of 8 hours and 19 minutes. Average saturation 99%. Low saturation 92%. Time with saturation less than or equal to 88% was 0 minutes. Oxygen desaturation index 0.1. patient had an ABG prior to removal of the mass with a pH of 7.41/59/86. DATA: 02/27/25: EXAMINATION: CT diagnostic chest wo con INDICATION: pneumonia COMPARISON: 02/05/2025 FINDINGS: Severe emphysema. Again seen is consolidation in the bilateral upper lobes and the lingula which appears unchanged since the most recent prior study but which has significantly improved in the right upper lobe since earlier study from 12/09/2024. The opacities in the left upper lobe and lingula have largely developed since the study on 12/09/2024 which should be most consistent with pneumonia. Interval resolution of prior right middle lobe collapse. Calcified nodules in the right lower lobe along with calcified right hilar lymph and multiple small splenic calcifications nodes consistent with old granulomatous disease. Small bilateral posterior layering pleural effusions, right greater than left. Heart size is normal. Atherosclerotic coronary artery calcifications. No pericardial effusion. Thoracic aorta is normal in caliber. No pathologically enlarged thoracic lymphadenopathy. Tiny renal stones layering dependently in a few of the calyces of the right kidney. There is mild right hydronephrosis. Thoracic kyphosis and mild dextrocurvature with mild spondylosis. IMPRESSION: 1. No significant interval change in multifocal pneumonia in the bilateral upper lobes and lingula. 2. New small bilateral posterior layering pleural effusions. 3. Interval resolution of prior right middle lobe collapse. 4. Severe emphysema. 5. Right-sided nephrolithiasis with mild right hydronephrosis. Consider further evaluation with CT of the abdomen and pelvis to assess for more distal obstructing stone or mass. ? 12/17/2024: Home O2 assessment:? Rest room air saturation 87%.? Rest nasal cannula 1 L saturation 94%.? Exercise nasal cannula 1 L saturation 84%.? Exercise nasal cannula 2 L saturation 86%.? Exercise nasal cannula 3 L saturation 91%.? Patient requires 1 L at rest and 3 with activity. 12/13/24: Patient wore home noninvasive ventilator AVAPS-AE, breath rate is 10, tidal volume 520, minimum EPAP 7, maximal EPAP 10, minimum pressure support 8, maximal pressure support 20. inspiratory time 0.6. Rise time 2.0, with 4 L bleed in and had an overnight oximetry with recording duration of 6 hours and 18 minutes. Average saturation 96%. Low saturation 92%. Time with saturation less than or equal to 88% was 0 minutes. Oxygen desaturation index 0. 12/12/24: Echo Summary 1. Complete two-dimensional, color flow and Doppler transthoracic echocardiogram is performed. 2. Left ventricular chamber dimension is normal. 3. Left ventricular systolic function is normal, estimated at 60-65. 4. The left ventricular diastolic function is grade I diastolic dysfunction. 5. E/e' 9 is minimally elevated. 6. There is moderate aortic valve sclerosis. 7. There is trace mitral valve regurgitation. Right Ventricle Right ventricular chamber dimension is normal. Right ventricular systolic function is normal and with TAPSE 1.7 cm. Left Atria Left atrial chamber dimension is normal. Right Atria Right atrial chamber dimension is normal. 12/09/24: EXAMINATION: CTA chest PE protocol INDICATION: Shortness of breath COMPARISON: 05/06/2021 FINDINGS: No pulmonary emboli. Severe emphysema. There is septal line thickening and fluid filling of the cystic airspaces in the right upper lobe with dense region of consolidation in the suprahilar region consistent with pneumonia. Is also a s mall region of peripheral consolidation along a band of scarring in the left upper lobe which could also represent atelectasis or pneumonia. Very small right pleural effusion. Heart size is normal. Atherosclerotic coronary artery calcific location. No pericardial effusion. Thoracic aorta is normal in caliber with no dissection. No pathologically enlarged thoracic lymphadenopathy. Likely benign 6 mm low-attenuation nodule in the right thyroid lobe. Multiple splenic calcific lesions consistent with old granulomatous disease. Couple small regions of cortical scarring at the left kidney consistent with sequela of prior infection or infarction. Visualized upper abdomen is otherwise unremarkable. Mild thoracic spondylosis. IMPRESSION: 1. No pulmonary embolism. 2. Severe emphysema with extensive airspace disease in the right upper lobe including dense consolidation in the suprahilar region consistent with pneumonia. Possible additional small region of pneumonia versus atelectasis at the peripheral left upper lobe. 3. Very small right pleural effusion. 06/18/2024: Overnight oximetry on noninvasive ventilator with 5 L bleed in. Recording duration 2 hours and 38 minutes. Basal saturation 96.6%. High saturation 99%. Low saturation 90%. Time with saturation less than or equal to 88% was 0 minutes. Oxygen desaturation index is 0. I will continue noninvasive ventilator with 5 L bleed in at night. 05/08/2023: Alpha 1 anti trypsin genotype MM, normal ??05/11/2021:? Home O2 assessment.? Rest room air saturations 85%, rest 1 L nasal cannula saturation 87%, rest 2 L nasal cannula saturation 94%, ambulation 2 L saturation 90%.? Patient requires 2 L with rest and with activity. ?05/06/21 EXAMINATION: CTA chest PE protocol ??INDICATION: SOB. ??Comparison is made to prior examination from 02/08/2017. ??FINDINGS:? Pulmonary arteries are well opacified and without intraluminal filling defects. ? No thoracic aortic dissection.? There is severe emphysema. Dependent subsegmental atelectasis.? Some endobronchial debris in the bronchus intermedius.? There is no mediastinal, hilar or axillary lymphadenopathy. ? There is no pneumothorax. ? Heart normal in size. ? There is mild coronary arterial calcification, arterial sclerosis.? Upper abdomen is unremarkable. ? There is thoracic spondylosis without osteoblastic or osteolytic lesions identified. ??IMPRESSION: ??1.? Dependent subsegmental atelectasis. ??2.? Some endobronchial debris. ??3.? Severe emphysema. ??4.? No pulmonary emboli. ?? ?07/16/2020: I have a report from PFTs at [facility]? [facility]. ??This is a pulmonary function test with pre and post-bronchodilator spirometry, plethysmography and diffusing capacity.? ?Findings: ?Spirometry: ? There is decreased maximal expiratory airflow at all lung volumes with the concave expiratory flow tracing.? The contour of the inspiratory flow tracing is normal.? The pre bronchodilator FVC is 1.47 L, 63% predicted.? The pre bronchodilator FEV1 is 0.41 L, 24% predicted.? The pre bronchodilator FEV1:? FVC ratio is 28%.? The post bronchodilator FVC is 1.86 L, representing a 27% increase.? The post bronchodilator FEV1 is 0.47 L, representing a 16% increase.? The post bronchodilator FEV1: FVC ratio is 25%.? ?Plethysmography:? Total lung capacity is 6.11 L, 154% predicted.? The functional residual capacity is 5.34 L, 216% predicted.? The residual volume is 4.64 L, 281% predicted.? ?Plethysmography:? The diffusing capacity unadjusted for hemoglobin and carboxyhemoglobin is 3.0, 21% predicted.? The diffusing capacity adjusted for alveolar volume is 1.79, 53% predicted. ?Impression: There is a very severe obstructive abnormality with significant improvement after inhaling a single dose of albuterol. The increase in residual volume is consistent with air trapping from an obstructive abnormality.? Hyperinflation is present as demonstrated by the increase in functional residual capacity and total lung capacity and is consistent with an obstructive abnormality. The diffusing capacity unadjusted for hemoglobin and carboxyhemoglobin is severely decreased and remains moderately decreased when adjusted for alveolar volume. ?There are no prior studies for comparison ? ??09/25/2003 report no raw data available ??TEST: PFT ??FVC, FEV1, GRB1% decreased. There is acute bronchodilator response. Lung volumes are increased. RAW is increased. DLCO is decreased. ??Impression: Severe obstructive ventilatory defect with acute bronchodilator response. Decreased DLCO. ?08/23/1999: Chest X ray report: ??CHEST ??Indication: Fever. ??Technique: PA and lateral views. ??The lungs are prominently hyperinflated, with flattening of the diaphragm and increased retrosternal air space, consistent with chronic obstructive pulmonary disease. ??There are some increased interstitial markings in the lungs, particularly in the right mid and lower lung field which may be chronic. One cannot exclude some interstitial pneumonitis. Correlation clinically and comparison with prior chest radiographs is recommended. No pulmonary consolidation is evident. There is no pleural effusion. No pulmonary vascular congestion or any apparent adenopathy or pneumothorax is noted. ??The cardiac and mediastinal silhouettes are unremarkable. There is mild aortic calcification. ??IMPRESSION: CHRONIC OBSTRUCTIVE PULMONARY DISEASE. ??INCREASED INTERSTITIAL MARKINGS, RIGHT MID AND LOWER ??LUNG BENAVIDEZ ? RECOMMEND COMPARISON WITH PRIOR ??CHEST RADIOGRAPHS AND CLINICAL CORRELATION TO ??DIFFERENTIATE ACUTE FROM CHRONIC. Review of Systems Constitutional: Constitutional: Reports no additional constitutional complaints Eyes: Eyes: Reports no additional eye complaints ENT: Reports system reviewed and no additional complaints, except as documented Cardiovascular: Cardiovascular: Reports no additional cardiovascular complaints Respiratory: Respiratory: Reports no additional respiratory complaints Gastrointestinal: Gastrointestinal: Reports no additional gastrointestinal complaints Musculoskeletal: Musculoskeletal: Reports no additional musculoskeletal complaints Neurologic: Reports system reviewed and no additional complaints, except as documented Psychiatric: Psychiatric: Reports no additional psychiatric complaints Endocrine: Endocrine: Reports no additional endocrine complaints Hematologic/Lymphatic: Hematologic/Lymphatic: Reports no additional hematologic/lymphatic complaints Allergic/Immunologic: Allergic/Immunologic: Reports no additional allergic/immunologic complaints Exam Const: General: cooperative and comfortable Orientation/consciousness: oriented to person, oriented to place and oriented to time Other: cachectic HENMT: Head: normal to inspection Ears: hearing grossly normal bilaterally Eyes: General: appearance normal, both eyes and all related structures Neck: Neck: normal visual inspection Chest: Chest palpation & inspection: normal inspection of the chest Resp: Effort & Inspection: normal respiratory effort and able to speak in complete sentences Auscultation: no crackles, no rales, no rhonchi, no wheezes and diminished lung sounds Cardio: Jugular venous distension: no JVD GI: Inspection: normal to inspection Skin: General skin exam: normal color Neuro: General: oriented to person, oriented to place and oriented to time Other: followed simple commands. Extrem: General: normal to inspection Other: No edema Psych: Appearance: grossly normal Objective Data Vital Signs Vital Signs: Vital Signs - 24 hr 02/27/25 13:55 02/27/25 14:35 02/27/25 15:10 Temperature 36.5 C Pulse Rate 77 65 Respiratory Rate 22 H Blood Pressure 145/53 H Pulse Oximetry 93 98 Oxygen Delivery BiPAP Oxygen Flow Rate Fraction of Inspired Oxygen 02/27/25 16:00 02/27/25 16:00 02/27/25 18:00 Temperature 36.8 C Pulse Rate 69 68 65 Respiratory Rate 15 Blood Pressure 98/59 L Pulse Oximetry 100 Oxygen Delivery Oxygen Flow Rate Fraction of Inspired Oxygen 02/27/25 20:00 02/27/25 20:00 02/27/25 20:00 Temperature 36.4 C L Pulse Rate 61 60 60 Respiratory Rate 15 20 Blood Pressure 100/65 Pulse Oximetry 100 98 Oxygen Delivery BiPAP Oxygen Flow Rate Fraction of Inspired Oxygen 30 02/27/25 20:16 02/27/25 20:28 02/27/25 20:29 Temperature Pulse Rate 100 61 61 Respiratory Rate 14 14 14 Blood Pressure Pulse Oximetry 100 Oxygen Delivery BiPAP Oxygen Flow Rate Fraction of Inspired Oxygen 02/27/25 21:34 02/27/25 21:34 02/27/25 22:00 Temperature Pulse Rate 66 66 68 Respiratory Rate 14 14 Blood Pressure Pulse Oximetry 98 98 Oxygen Delivery BiPAP BiPAP Oxygen Flow Rate Fraction of Inspired Oxygen 30 02/27/25 23:58 02/28/25 00:00 02/28/25 00:00 Temperature 36.3 C L Pulse Rate 68 69 63 Respiratory Rate 15 18 Blood Pressure 119/69 Pulse Oximetry 99 100 Oxygen Delivery BiPAP Oxygen Flow Rate Fraction of Inspired Oxygen 30 02/28/25 00:15 02/28/25 02:00 02/28/25 02:30 Temperature Pulse Rate 72 64 65 Respiratory Rate 16 14 Blood Pressure Pulse Oximetry 100 100 Oxygen Delivery BiPAP BiPAP Oxygen Flow Rate Fraction of Inspired Oxygen 02/28/25 04:00 02/28/25 04:00 02/28/25 04:00 Temperature 36.4 C Pulse Rate 54 L 62 67 Respiratory Rate 20 14 Blood Pressure 149/70 H Pulse Oximetry 100 100 Oxygen Delivery BiPAP Oxygen Flow Rate Fraction of Inspired Oxygen 30 02/28/25 06:00 02/28/25 08:00 02/28/25 08:00 Temperature 36.4 C Pulse Rate 68 67 69 Respiratory Rate 18 Blood Pressure 150/76 H Pulse Oximetry 100 Oxygen Delivery Oxygen Flow Rate Fraction of Inspired Oxygen 02/28/25 08:12 02/28/25 08:17 02/28/25 08:27 Temperature Pulse Rate 69 69 Respiratory Rate 18 14 Blood Pressure Pulse Oximetry 100 Oxygen Delivery Nasal Cannula Nasal Cannula Oxygen Flow Rate 1.5 2 Fraction of Inspired Oxygen 02/28/25 08:31 02/28/25 10:00 02/28/25 10:16 Temperature Pulse Rate 72 82 Respiratory Rate 18 Blood Pressure Pulse Oximetry Oxygen Delivery Nasal Cannula Oxygen Flow Rate 4 Fraction of Inspired Oxygen 02/28/25 11:51 02/28/25 13:05 02/28/25 13:18 Temperature 36.8 C Pulse Rate 77 97 76 Respiratory Rate 22 H 18 18 Blood Pressure 145/69 H Pulse Oximetry 97 Oxygen Delivery Oxygen Flow Rate Fraction of Inspired Oxygen Intake/Output Intake/Output: Intake & Output 02/25/25 02/26/25 02/27/25 02/28/25 23:59 23:59 23:59 23:59 Intake Total 790 1735 290 Output Total 400 Balance 790 1335 290 Meds/Results Medications: Active Medications Generic Name Dose Route Start Last Admin Trade Name Freq PRN Reason Stop Dose Admin Acetaminophen 650 mg 02/26/25 16:46 Acetaminophen 325 Mg Tablet PO Q4H PRN Mild Pain (1-3) or Fever Albuterol/Ipratropium 3 ml 02/26/25 14:00 Ipratropium 0.5 Mg/Albuterol Sulfate 2.5 Mg (Base) Ampul.Neb 3 Ml INHALATION Q6HRT PRN Shortness Of Breath Or Wheezing Albuterol/Ipratropium 3 ml 02/27/25 14:00 02/28/25 13:05 Ipratropium 0.5 Mg/Albuterol Sulfate 2.5 Mg (Base) Ampul.Neb 3 Ml INHALATION 3 ml Q6HRT DONNA Administration Amlodipine Besylate 5 mg 02/27/25 09:00 02/28/25 09:31 Amlodipine Besylate 5 Mg Tablet PO 5 mg DAILY DONNA Administration Calcium Carbonate 500 mg 02/27/25 09:00 02/28/25 09:31 Calcium/Vitamin D 500 Mg/5 Mcg (200 I.U.) Tablet PO 500 mg DAILY DONNA Administration Cyanocobalamin 500 mcg 02/27/25 09:00 02/28/25 09:31 Cyanocobalamin 500 Mcg Tablet PO 500 mcg DAILY DONNA Administration Cyanocobalamin 2,000 mcg 02/27/25 09:00 02/28/25 09:31 Cyanocobalamin 1,000 Mcg Tablet PO 2,000 mcg DAILY DONNA Administration Docusate Sodium 100 mg 02/26/25 15:25 Docusate Sodium 100 Mg Capsule PO Q12H PRN Constipation Enoxaparin Sodium 40 mg 02/28/25 09:00 02/28/25 09:30 Enoxaparin 40 Mg/0.4 Ml Syringe SUB-Q 40 mg DAILY DONNA Administration Guaifenesin 1,200 mg 02/26/25 21:00 02/28/25 09:31 Guaifenesin 12 Hr 600 Mg Tabcr PO 1,200 mg Q12HR DONNA Administration Azithromycin 500 mg/ Sodium 250 mls @ 250 mls/hr 02/27/25 11:00 02/28/25 09:59 Chloride IVPB 03/03/25 11:59 250 mls/hr Q24H DONNA Administration Cefepime HCl 2 gm/ Sodium 50 mls @ 100 mls/hr 02/27/25 11:30 02/28/25 09:30 Chloride IVPB 100 mls/hr Q12HR DONNA Administration Vitamin D 50 mcg 02/27/25 09:00 02/28/25 09:31 Cholecalciferol (Vitamin D3) 25 Mcg (1,000 Units) Tablet PO 50 mcg DAILY DONNA Administration Vitamin E 1,000 unit 02/27/25 09:00 02/28/25 09:31 Vitamin E 1,000 Unit Capsule PO 1,000 unit DAILY DONNA Administration Radiology Results: ITS Impressions Head CT 02/26/25 09:49 IMPRESSION: 1. No acute intracranial hemorrhage. No mass effect. 2. Small lacunar infarction in the left caudate of indeterminate age. Consider a brain MRI 3. Probable chronic ischemic white matter change. If symptoms persist or worsen, consider a short-term follow-up study or additional imaging for further assessment. Chest X-Ray 02/26/25 09:54 Impression: Bilateral pneumonia. The findings appear progressed compared to the previous study Brain MRI 02/26/25 15:47 IMPRESSION: 1. No acute intracranial process. 2. 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 3. A few unchanged scattered foci of old microhemorrhage in the cerebrum most typically seen with hypertension or amyloid angiopathy. 4. Indeterminate 2.3 x 1.8 x 0.5 cm flap pedunculated lesion arising from the left parietal scalp. Correlate with physical exam. Chest CT 02/27/25 10:35 IMPRESSION: 1. No significant interval change in multifocal pneumonia in the bilateral upper lobes and lingula. 2. New small bilateral posterior layering pleural effusions. 3. Interval resolution of prior right middle lobe collapse. 4. Severe emphysema. 5. Right-sided nephrolithiasis with mild right hydronephrosis. Consider further evaluation with CT of the abdomen and pelvis to assess for more distal obstructing stone or mass. Abdomen/Pelvis CT 02/28/25 09:55 IMPRESSION: 1. Chronic mild right hydronephrosis, stable from 02/08/17. 2. Nonobstructing right kidney stones. 3. Severe emphysema. 4. Small pleural effusions. Labs Labs: Laboratory Results - last 24 hr 02/28/25 02/28/25 02/28/25 05:50 06:04 06:44 WBC 3.4 L RBC 3.46 L Hgb 9.5 L Hct 32.3 L MCV 93.4 MCH 27.5 MCHC 29.4 L RDW 15.8 H Plt Count 178 MPV 9.3 Immature Gran % (Auto) 0.3 Neut % (Auto) 64.7 Lymph % (Auto) 19.2 [place] % (Auto) 13.7 H Eos % (Auto) 1.5 Baso % (Auto) 0.6 Lymph # (Auto) 0.66 L [place] # (Auto) 0.5 Eos # (Auto) 0.1 Baso # (Auto) 0.0 Abs Immat Gran (auto) 0.01 Absolute Neuts (auto) 2.2 Absolute Nucleated RBC 0.000 Band Neutrophils % Not Reportable Nucleated RBC % 0.0 Platelet Estimate Adequate Hypochromasia 1+ Schistocytes None seen Puncture Site Right brachial ABG pH 7.405 ABG pCO2 59.4 H ABG pO2 85.6 ABG PO2/FiO2 Ratio 2.85 ABG HCO3 36.4 H ABG O2 Saturation 96.3 ABG O2 Content 13.9 L ABG Base Excess 10.0 A-a Gradient 58.5 Oxyhemoglobin 96.2 Carboxyhemoglobin 0.6 Methemoglobin 0.1 Reduced Hemoglobin 3.1 Total Hemoglobin 10.2 L O2 Delivery Device Non-invasive vent O2 Liters/Min Not Reportable Vent Rate 14 FiO2 30 Expiratory Pressure 8 Inspiratory Pressure Not Reportable Sodium 134 L Potassium 3.5 Chloride 95 L Carbon Dioxide 38 H Anion Gap 1 L BUN 9 Creatinine 0.33 L Estim Creat Clear Calc Not Reportable Estimated GFR > 60 Glucose 69 Calcium 8.3 L Total Bilirubin 0.3 AST 22 ALT 9 Alkaline Phosphatase 54 C-Reactive Protein 4.7 H Total Protein 5.6 L Albumin 2.9 L Procalcitonin 0.7
[2025-02-28] MEDS: CALCIUM CARBONATE (TUMS) 500 MG (200 MG ELEMENTAL) PO (21:30)
[2025-03-01] VITALS (17 sets, daily range): BP systolic 118–153; BP diastolic 51–84; PULSE 69–89; RESP 16–20; TEMP 36.4–37; O2SAT 9–100
[2025-03-01 04:46] LABS: Alveolar/Arterial O2 Gradient 72.0 mmHg; Carboxyhemoglobin 0.5 % THb (0-2.0); Fractional Inspired Oxygen 28 %; HCO3 ABG 34.4 mEq/l (22.0-26.0); Methemoglobin ABG 0.0 %THb (0-1.5); Oxygen Content ABG 13.7 %vol (16.0-22.0); Oxygen Saturation ABG 94.0 % (95.0-100.0); PCO2 ABG 50.7 mmHg (35.0-45.0); PO2 ABG 67.8 mmHg (80.0-100.0); PO2 FiO2 Ratio Arterial Blood 2.42 %; Reduced Hemoglobin 5.9 %THb (0-5.0)
[2025-03-01 04:48] LABS: Modified Allen's Test Pass; Site Drawn RIGHT RADIAL
[2025-03-01 04:49] LABS: Liters per Minute 2.0 LPM
[2025-03-01 06:33] LABS: Hematocrit 36.3 % (37.0-47.0); Hemoglobin 10.8 g/dL (12.0-15.0); Immature Granulocyte Percent A 0.3 % (0-0.5); Lymphocytes Absolute Auto 0.83 K/mm3 (0.9-3.2); Mean Corpuscular HGB Conc 29.8 g/dl (32-36); Mean Corpuscular Hemoglobin 27.3 pg (26-34); Mean Corpuscular Volume 91.7 fl (80-100); Nucleated Red Blood Cells Absolute Auto 0.000 K/mm3 (0.0-0.012); Nucleated Red Blood Cells Perc 0.0 % (0.0-0.2); Platelet Count Result 216 k/mm3 (150-375); Red Blood Count 3.96 M/mm3 (4.2-5.4); White Blood Count 3.8 K/mm3 (4.5-10.0)
[2025-03-01 07:04] LABS: Anisocytosis 1+; Hypochromasia 1+
[2025-03-01 07:05] LABS: Ovalocytes Occasional; Schistocytes None Seen
[2025-03-01 07:14] LABS: Alanine Aminotransferase 11 U/L (6-35); Albumin Level 3.3 g/dL (3.5-5.1); Alkaline Phosphatase 53 U/L (38-126); Anion Gap 1 mmol/L (4-12); Aspartate Amino Transferase 24 U/L (14-36); Bilirubin,Total 0.4 mg/dL (0.2-1.3); Blood Urea Nitrogen 18 mg/dL (7-17); Calcium 9.0 mg/dL (8.4-10.2); Carbon Dioxide 39 mmol/L (22-30); Chloride 94 mmol/L (98-107); Estimated Glomerular Filt Rate > 60; Glucose 77 mg/dL (65-110); Potassium 4.3 mmol/L (3.4-5.0); Sodium 134 mmol/L (137-145); Total Protein 6.5 g/dL (6.3-8.2)
[2025-03-01] MEDS: IPRATROPIUM 0.5 MG/ALBUTEROL SULFATE 2.5 MG (BASE) AMPUL.NEB 3 ML INHALATION ×4 (07:20→19:54)
--- NOTE | 2025-03-01 08:32 | P.PNIM_ITS ---
Progress Note: A&P Assessment and Plan (1) Pneumonia: Qualifiers: Laterality: bilateral Lung location: lower lobe of lung Pneumonia type: due to unspecified organism Qualified Code(s): J18.9 - Pneumonia, unspecified organism Code(s): J18.9 - Pneumonia, unspecified organism Status: Acute Assessment and Plan: Patient presents with increased dyspnea on exertion. Patient denies fevers, chest pain, cough. Her caregiver states she had to increase her O2 flow to 4 L. Patient did see her PCP 2 days ago and a chest x-ray was completed showing worsening bilateral pneumonia worsening from a CT performed on 02/10. She was prescribed Augmentin and azithromycin. Chest x-ray with bilateral pneumonia appearing progressed compared to the previous study. Patient does have a history of severe emphysema. Wears 2 L at baseline.Pt sees Dr. Queen with pulmonology outpatient who has been following this chronic pneumonia since her last admission 12/10/24-12/17/24. - CT chest with new small bilateral posterior layering pleural effusions - MRSA PCR negative - COVID/flu/RSV negative -Legionella urine antigen and sputum culture ordered -continue home O2 at 2 L and BiPAP qHS -DuoNeb q.6 p.r.n. -Mucinex 600 Q 12 -acetaminophen 650 Q 4 p.r.n. -pulmonology consulted - switched antibiotics to cefepime to cover for pseudomonas. Continue azithromycin. BiPAP as below. Discussed with Dr. Queen - plan to continue antibiotics through the weekend and he will follow-up on Monday (2) Acute on chronic respiratory failure with hypoxia and hypercapnia: Code(s): J96.21 - Acute and chronic respiratory failure with hypoxia; J96.22 - Acute and chronic respiratory failure with hypercapnia Status: Acute Assessment and Plan: - patient chronically requiring 2L NC - ABG 02/27 with pH 7.308, pCO2 81, pO2 76.9 - started on BiPAP1 with improvement. Continue home BiPAP per pulm recs. - management of pneumonia as above (3) Cerebral amyloid angiopathy: Code(s): E85.4 - Organ-limited amyloidosis; I68.0 - Cerebral amyloid angiopathy Status: Chronic Assessment and Plan: -Scattered foci of old microhemorrhage in the cerebrum, most commonly seen with amyloid angiopathy or chronic hypertensive encephalopathy seen on MRI performed on 02/16. Patient has an appointment with Neurology on 06/18/2025 for her amyloidosis. Daughter at bedside feels that patient ?forgetful? recently. CT head today reveals no acute hemorrhage, small lacunar infarct in the left caudate of indeterminate age, probable chronic ischemic white matter changes. MRI brain was recommended to follow up on the lacunar infarct. 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 A few unchanged scattered foci of old microhemorrhage in the cerebrum most typically seen with hypertension or amyloid angiopathy. Indeterminate 2.3 x 1.8 x 0.5 cm flap pedunculated lesion arising from the left parietal scalp. Correlate with physical exam. -neurology consult to follow for cerebral amyloid angiopathy-unclear if changes are related to hypertensive or amyloid angiopathy. Recommended outpatient follow-up. (4) COPD (chronic obstructive pulmonary disease): Qualifiers: COPD type: unspecified COPD Qualified Code(s): J44.9 - Chronic obstr uctive pulmonary disease, unspecified Code(s): J44.9 - Chronic obstructive pulmonary disease, unspecified Status: Chronic Assessment and Plan: Wears 2 L O2 baseline at home. Patient denies fevers, chest pain, cough. History of severe emphysema. Pt sees Dr. Queen with pulmonology outpatient -pulmonology consulted as above - Amber Q6H p.r.n. - home medications: Albuterol inhaler, glycopyrrolate- formoterol, DuoNeb -continue glycopyrrolate- formoterol -continue home O2 at 2 L (5) HTN (hypertension): Qualifiers: Hypertension type: primary hypertension Qualified Code(s): I10 - Essential (primary) hypertension Code(s): I10 - Essential (primary) hypertension Status: Chronic Assessment and Plan: Initial BP 133/76 -continue amlodipine 5 mg daily (6) Hydronephrosis, right: Code(s): N13.30 - Unspecified hydronephrosis Status: Acute Assessment and Plan: - CT A/P with chronic R hydronephrosis and stable renal stones - no flank pain - no intervention warranted Plan DVT prophylaxis: SCDs, Lovenox Code status: No CPR-mechanical ventilation okay Dispo: likely discharge home Monday Subjective Date/time seen: 03/01/25 08:32 Interval history: Patient seen and examined up in chair, feeling better today. Having some anxiety and loose stool. Breathing feels stable. Review of Systems Review of Systems: All systems reviewed & are unremarkable except as noted in HPI and below Exam Narrative: General: NAD, frail Eyes: EOMI ENT: neck supple Cardiovascular: Regular rate and rhythm Respiratory: Clear to auscultation bilaterally, respirations even and unlabored on 2L NC Gastrointestinal: Soft, non tender Genitourinary: no suprapubic tenderness Musculoskeletal: No edema Skin: warm, dry Neuro: Alert and oriented x4. Psych: anxious Objective Data Vital Signs Vital Signs: Vital Signs - 24 hr 02/28/25 10:00 02/28/25 10:16 02/28/25 11:51 Temperature 98.3 F Pulse Rate 82 77 Respiratory Rate 22 H Blood Pressure 145/69 H Pulse Oximetry 97 Oxygen Delivery Nasal Cannula Oxygen Flow Rate 4 Fraction of Inspired Oxygen 02/28/25 12:00 02/28/25 13:05 02/28/25 13:18 Temperature Pulse Rate 82 97 76 Respiratory Rate 18 18 Blood Pressure Pulse Oximetry Oxygen Delivery Oxygen Flow Rate Fraction of Inspired Oxygen 02/28/25 14:00 02/28/25 16:00 02/28/25 16:00 Temperature 98.1 F Pulse Rate 90 86 85 Respiratory Rate 19 Blood Pressure 136/63 Pulse Oximetry 93 Oxygen Delivery Oxygen Flow Rate Fraction of Inspired Oxygen 02/28/25 18:00 02/28/25 20:00 02/28/25 20:00 Temperature 98.3 F Pulse Rate 84 75 75 Respiratory Rate 16 16 Blood Pressure 135/65 Pulse Oximetry 95 95 Oxygen Delivery Nasal Cannula Oxygen Flow Rate 2 Fraction of Inspired Oxygen 30 02/28/25 20:00 02/28/25 20:42 02/28/25 20:43 Temperature Pulse Rate 75 74 Respiratory Rate 16 Blood Pressure Pulse Oximetry 99 Oxygen Delivery Nasal Cannula Oxygen Flow Rate 2 Fraction of Inspired Oxygen 02/28/25 20:50 02/28/25 22:00 02/28/25 23:32 Temperature 98.3 F Pulse Rate 77 73 71 Respiratory Rate 16 20 Blood Pressure 124/66 Pulse Oximetry 94 Oxygen Delivery Oxygen Flow Rate Fraction of Inspired Oxygen 03/01/25 00:00 03/01/25 00:00 03/01/25 02:00 Temperature Pulse Rate 71 71 Respiratory Rate 20 Blood Pressure Pulse Oximetry 94 99 Oxygen Delivery BiPAP Nasal Cannula Oxygen Flow Rate 2 Fraction of Inspired Oxygen 30 03/01/25 02:00 03/01/25 04:00 03/01/25 04:00 Temperature Pulse Rate 69 69 69 Respiratory Rate 20 Blood Pressure Pulse Oximetry 99 Oxygen Delivery BiPAP Oxygen Flow Rate Fraction of Inspired Oxygen 30 03/01/25 04:00 03/01/25 07:22 03/01/25 07:23 Temperature 97.7 F Pulse Rate 69 71 Respiratory Rate 20 20 Blood Pressure 134/84 Pulse Oximetry 9 L 97 Oxygen Delivery Nasal Cannula Oxygen Flow Rate 1 Fraction of Inspired Oxygen 03/01/25 08:00 Temperature 98.2 F Pulse Rate 76 Respiratory Rate 20 Blood Pressure 153/66 H Pulse Oximetry 96 Oxygen Delivery Oxygen Flow Rate Fraction of Inspired Oxygen Intake/Output Intake/Output: Intake & Output 02/26/25 02/27/25 02/28/25 03/01/25 23:59 23:59 23:59 23:59 Intake Total 790 1735 1050 350 Output Total 400 Balance 790 1335 1050 350 Meds/Results Medications: Active Medications Generic Name Dose Route Start Last Admin Trade Name Freq PRN Reason Stop Dose Admin Acetaminophen 650 mg 02/26/25 16:46 Acetaminophen 325 Mg Tablet PO Q4H PRN Mild Pain (1-3) or Fever Albuterol/Ipratropium 3 ml 02/26/25 14:00 Ipratropium 0.5 Mg/Albuterol Sulfate 2.5 Mg (Base) Ampul.Neb 3 Ml INHALATION Q6HRT PRN Shortness Of Breath Or Wheezing Albuterol/Ipratropium 3 ml 02/27/25 14:00 03/01/25 07:20 Ipratropium 0.5 Mg/Albuterol Sulfate 2.5 Mg (Base) Ampul.Neb 3 Ml INHALATION 3 ml Q6HRT DONNA Administration Amlodipine Besylate 5 mg 02/27/25 09:00 02/28/25 09:31 Amlodipine Besylate 5 Mg Tablet PO 5 mg DAILY DONNA Administration Calcium Carbonate 500 mg 02/27/25 09:00 02/28/25 09:31 Calcium/Vitamin D 500 Mg/5 Mcg (200 I.U.) Tablet PO 500 mg DAILY DONNA Administration Calcium Carbonate 200 mg 02/28/25 21:46 02/28/25 21:30 Calcium Carbonate (Tums) 500 Mg (200 Mg Elemental) PO 200 mg Q6H PRN Administration Indigestion Cyanocobalamin 500 mcg 02/27/25 09:00 02/28/25 09:31 Cyanocobalamin 500 Mcg Tablet PO 500 mcg DAILY DONNA Administration Cyanocobalamin 2,000 mcg 02/27/25 09:00 02/28/25 09:31 Cyanocobalamin 1,000 Mcg Tablet PO 2,000 mcg DAILY DONNA Administration Docusate Sodium 100 mg 02/26/25 15:25 Docusate Sodium 100 Mg Capsule PO Q12H PRN Constipation Enoxaparin Sodium 40 mg 02/28/25 09:00 02/28/25 09:30 Enoxaparin 40 Mg/0.4 Ml Syringe SUB-Q 40 mg DAILY DONNA Administration Guaifenesin 1,200 mg 02/26/25 21:00 02/28/25 20:57 Guaifenesin 12 Hr 600 Mg Tabcr PO 1,200 mg Q12HR DONNA Administration Azithromycin 500 mg/ Sodium 250 mls @ 250 mls/hr 02/27/25 11:00 02/28/25 09:59 Chloride IVPB 03/03/25 11:59 250 mls/hr Q24H DONNA Administration Cefepime HCl 2 gm/ Sodium 50 mls @ 100 mls/hr 02/27/25 11:30 02/28/25 20:57 Chloride IVPB 100 mls/hr Q12HR DONNA Administration Vitamin D 50 mcg 02/27/25 09:00 02/28/25 09:31 Cholecalciferol (Vitamin D3) 25 Mcg (1,000 Units) Tablet PO 50 mcg DAILY DONNA Administration Vitamin E 1,000 unit 02/27/25 09:00 02/28/25 09:31 Vitamin E 1,000 Unit Capsule PO 1,000 unit DAILY DONNA Administration Radiology Results: ITS Impressions Head CT 02/26/25 09:49 IMPRESSION: 1. No acute intracranial hemorrhage. No mass effect. 2. Small lacunar infarction in the left caudate of indeterminate age. Consider a brain MRI 3. Probable chronic ischemic white matter change. If symptoms persist or worsen, consider a short-term follow-up study or additional imaging for further assessment. Chest X-Ray 02/26/25 09:54 Impression: Bilateral pneumonia. The findings appear progressed compared to the previous study Brain MRI 02/26/25 15:47 IMPRESSION: 1. No acute intracranial process. 2. 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 3. A few unchanged scattered foci of old microhemorrhage in the cerebrum most typically seen with hypertension or amyloid angiopathy. 4. Indeterminate 2.3 x 1.8 x 0.5 cm flap pedunculated lesion arising from the left parietal scalp. Correlate with physical exam. Chest CT 02/27/25 10:35 IMPRESSION: 1. No significant interval change in multifocal pneumonia in the bilateral upper lobes and lingula. 2. New small bilateral posterior layering pleural effusions. 3. Interval resolution of prior right middle lobe collapse. 4. Severe emphysema. 5. Right-sided nephrolithiasis with mild right hydronephrosis. Consider further evaluation with CT of the abdomen and pelvis to assess for more distal obstructing stone or mass. Abdomen/Pelvis CT 02/28/25 09:55 IMPRESSION: 1. Chronic mild right hydronephrosis, stable from 02/08/17. 2. Nonobstructing right kidney stones. 3. Severe emphysema. 4. Small pleural effusions. Labs Labs: Laboratory Results - last 24 hr 02/27/25 02/28/25 02/28/25 09:38 06:04 06:44 WBC RBC Hgb Hct MCV MCH MCHC RDW Plt Count MPV Immature Gran % (Auto) Neut % (Auto) Lymph % (Auto) Wells % (Auto) Eos % (Auto) Baso % (Auto) Lymph # (Auto) Wells # (Auto) Eos # (Auto) Baso # (Auto) Abs Immat Gran (auto) Absolute Neuts (auto) Absolute Nucleated RBC Band Neutrophils % Nucleated RBC % Platelet Estimate Hypochromasia Anisocytosis Ovalocytes Schistocytes Puncture Site ABG pH ABG pCO2 ABG pO2 ABG PO2/FiO2 Ratio ABG HCO3 ABG O2 Saturation ABG O2 Content ABG Base Excess A-a Gradient Oxyhemoglobin Carboxyhemoglobin Methemoglobin Reduced Hemoglobin Total Hemoglobin O2 Delivery Device O2 Liters/Min FiO2 Sodium Potassium Chloride Carbon Dioxide Anion Gap BUN Creatinine Estim Creat Clear Calc Estimated GFR Glucose Calcium Total Bilirubin AST ALT Alkaline Phosphatase C-Reactive Protein 4.7 H Total Protein Albumin Procalcitonin 0.7 Chlamy pneumoniae PCR Not detected Adenovirus (PCR) Not detected B. pertussis DNA (PCR) Not detected B.parapertussis DNA PCR Not detected Coronavirus OC43 (PCR) Not detected Coronavirus HKU1 (PCR) Not detected Coronavirus 229E (PCR) Not detected Coronavirus NL63 (PCR) Not detected Human Metapneumovir PCR Not detected Influenza A (H1) PCR Not detected Influ A (H1/09) PCR Not detected Influenza A (H3) PCR Not detected Influenza Type A (PCR) Not detected Influenza Type B (PCR) Not detected M. pneumoniae (PCR) Not detected Parainfluenza 1 (PCR) Not detected Parainfluenza 2 (PCR) Not detected Parainfluenza 3 (PCR) Not detected Parainfluenza 4 (PCR) Not detected RSV (PCR) Not detected Entero/Rhino (PCR) Not detected SARS-CoV-2 (PCR) Not detected 03/01/25 03/01/25 04:25 06:17 WBC 3.8 L RBC 3.96 L Hgb 10.8 L Hct 36.3 L MCV 91.7 MCH 27.3 MCHC 29.8 L RDW 15.8 H Plt Count 216 MPV 9.2 Immature Gran % (Auto) 0.3 Neut % (Auto) 64.8 Lymph % (Auto) 22.0 Wells % (Auto) 11.6 H Eos % (Auto) 0.8 Baso % (Auto) 0.5 Lymph # (Auto) 0.83 L Wells # (Auto) 0.4 Eos # (Auto) 0.0 Baso # (Auto) 0.0 Abs Immat Gran (auto) 0.01 Absolute Neuts (auto) 2.5 Absolute Nucleated RBC 0.000 Band Neutrophils % Not Reportable Nucleated RBC % 0.0 Platelet Estimate Adequate Hypochromasia 1+ Anisocytosis 1+ Ovalocytes Occasional Schistocytes None seen Puncture Site Right radial ABG pH 7.449 ABG pCO2 50.7 H ABG pO2 67.8 L ABG PO2/FiO2 Ratio 2.42 ABG HCO3 34.4 H ABG O2 Saturation 94.0 L ABG O2 Content 13.7 L ABG Base Excess 9.1 A-a Gradient 72.0 Oxyhemoglobin 93.6 Carboxyhemoglobin 0.5 Methemoglobin 0.0 Reduced Hemoglobin 5.9 H Total Hemoglobin 10.4 L O2 Delivery Device Other device O2 Liters/Min 2.0 FiO2 28 Sodium 134 L Potassium 4.3 Chloride 94 L Carbon Dioxide 39 H Anion Gap 1 L BUN 18 H Creatinine 0.38 L Estim Creat Clear Calc Not Reportable Estimated GFR > 60 Glucose 77 Calcium 9.0 Total Bilirubin 0.4 AST 24 ALT 11 Alkaline Phosphatase 53 C-Reactive Protein Total Protein 6.5 Albumin 3.3 L Procalcitonin Chlamy pneumoniae PCR Adenovirus (PCR) B. pertussis DNA (PCR) B.parapertussis DNA PCR Coronavirus OC43 (PCR) Coronavirus HKU1 (PCR) Coronavirus 229E (PCR) Coronavirus NL63 (PCR) Human Metapneumovir PCR Influenza A (H1) PCR Influ A (H1/09) PCR Influenza A (H3) PCR Influenza Type A (PCR) Influenza Type B (PCR) M. pneumoniae (PCR) Parainfluenza 1 (PCR) Parainfluenza 2 (PCR) Parainfluenza 3 (PCR) Parainfluenza 4 (PCR) RSV (PCR) Entero/Rhino (PCR) SARS-CoV-2 (PCR) Quality VTE Prophylaxis VTE prophylaxis: mechanical ordered and pharmacologic ordered
[2025-03-01] MEDS: CALCIUM/VITAMIN D 500 MG/5 MCG (200 I.U.) TABLET PO (10:16)
[2025-03-01] MEDS: CHOLECALCIFEROL (VITAMIN D3) 25 MCG (1,000 UNITS) TABLET 50 MCG PO (10:16)
[2025-03-01] MEDS: CYANOCOBALAMIN 500 MCG TABLET PO (10:16)
[2025-03-01] MEDS: guaiFENesin 12 HR 600 MG TABCR 1200 MG PO ×2 (10:16→21:07)
[2025-03-01] MEDS: AZITHROMYCIN IV 500 MG in SODIUM CHLORIDE 0.9% IV 250 ML IVPB (10:17)
[2025-03-01] MEDS: CYANOCOBALAMIN 1,000 MCG TABLET 2000 MCG PO (10:17)
[2025-03-01] MEDS: CEFEPIME 2 GM in SODIUM CHLORIDE 0.9% IV 50 ML 100 ML IVPB ×2 (10:18→21:07)
[2025-03-01] MEDS: VITAMIN E 1,000 UNIT CAPSULE 1000 UNIT PO (10:18)
[2025-03-01] MEDS: ENOXAPARIN 40 MG/0.4 ML SYRINGE SUB-Q (10:38)
--- NOTE | 2025-03-01 13:05 | PC.NURSE ---
This patient, Ritu Liao, was received from [[facility] ] on 03/01/25 at 1300. Patient/family oriented to unit policies and routines
[2025-03-01] MEDS: SACCHAROMYCES BOULARDII 250 MG CAPSULE PO (17:22)
[2025-03-02] VITALS (24 sets, daily range): BP systolic 107–135; BP diastolic 58–66; PULSE 66–88; RESP 17–25; TEMP 36.3–37.1; O2SAT 94–100
[2025-03-02] MEDS: IPRATROPIUM 0.5 MG/ALBUTEROL SULFATE 2.5 MG (BASE) AMPUL.NEB 3 ML INHALATION ×4 (02:17→19:28)
--- NOTE | 2025-03-02 02:52 | PC.NURSE ---
Daylight Savings Time For Daylight Savings Time Ending in the Fall - Clocks are moved back. For Daylight Savings Time Beginning in the Spring - Clocks are moved ahead. For [facility], the time of change occurs at 0200 hrs. Time is taken from the customer project manager. This entry on the patient's chart recognizes the change in time reflected during documentation. Example: 2 entries for vital signs may be charted for 0200 hrs.
[2025-03-02 06:10] LABS: Hematocrit 33.3 % (37.0-47.0); Hemoglobin 9.8 g/dL (12.0-15.0); Immature Granulocyte Percent A 0.5 % (0-0.5); Lymphocytes Absolute Auto 0.87 K/mm3 (0.9-3.2); Mean Corpuscular HGB Conc 29.4 g/dl (32-36); Mean Corpuscular Hemoglobin 27.5 pg (26-34); Mean Corpuscular Volume 93.3 fl (80-100); Nucleated Red Blood Cells Absolute Auto 0.000 K/mm3 (0.0-0.012); Nucleated Red Blood Cells Perc 0.0 % (0.0-0.2); Platelet Count Result 193 k/mm3 (150-375); Red Blood Count 3.57 M/mm3 (4.2-5.4); White Blood Count 3.8 K/mm3 (4.5-10.0)
[2025-03-02 06:43] LABS: Ovalocytes 1+; Schistocytes None Seen
[2025-03-02 06:44] LABS: Hypochromasia 1+
[2025-03-02 06:54] LABS: Alanine Aminotransferase 9 U/L (6-35); Albumin Level 3.0 g/dL (3.5-5.1); Alkaline Phosphatase 52 U/L (38-126); Anion Gap 4 mmol/L (4-12); Aspartate Amino Transferase 21 U/L (14-36); Bilirubin,Total 0.3 mg/dL (0.2-1.3); Blood Urea Nitrogen 14 mg/dL (7-17); Calcium 8.7 mg/dL (8.4-10.2); Carbon Dioxide 36 mmol/L (22-30); Chloride 94 mmol/L (98-107); Estimated Glomerular Filt Rate > 60; Glucose 75 mg/dL (65-110); Potassium 4.0 mmol/L (3.4-5.0); Sodium 134 mmol/L (137-145); Total Protein 5.7 g/dL (6.3-8.2)
--- NOTE | 2025-03-02 07:37 | P.PNIM_ITS ---
Progress Note: A&P Assessment and Plan (1) Pneumonia: Qualifiers: Laterality: bilateral Lung location: lower lobe of lung Pneumonia type: due to unspecified organism Qualified Code(s): J18.9 - Pneumonia, unspecified organism Code(s): J18.9 - Pneumonia, unspecified organism Status: Acute Assessment and Plan: Patient presents with increased dyspnea on exertion. Patient denies fevers, chest pain, cough. Her caregiver states she had to increase her O2 flow to 4 L. Patient did see her PCP 2 days ago and a chest x-ray was completed showing worsening bilateral pneumonia worsening from a CT performed on 02/10. She was prescribed Augmentin and azithromycin. Chest x-ray with bilateral pneumonia appearing progressed compared to the previous study. Patient does have a history of severe emphysema. Wears 2 L at baseline.Pt sees Dr. Queen with pulmonology outpatient who has been following this chronic pneumonia since her last admission 12/10/24-12/17/24. - CT chest with new small bilateral posterior layering pleural effusions - MRSA PCR negative - COVID/flu/RSV negative -Legionella urine antigen and sputum culture ordered -continue home O2 at 2 L and BiPAP qHS -DuoNeb q.6 p.r.n. -Mucinex 600 Q 12 -acetaminophen 650 Q 4 p.r.n. -pulmonology consulted - switched antibiotics to cefepime to cover for pseudomonas. Continue azithromycin. BiPAP as below. Discussed with Dr. Queen - plan to continue antibiotics through the weekend and he will follow-up on Monday (2) Acute on chronic respiratory failure with hypoxia and hypercapnia: Code(s): J96.21 - Acute and chronic respiratory failure with hypoxia; J96.22 - Acute and chronic respiratory failure with hypercapnia Status: Acute Assessment and Plan: - patient chronically requiring 2L NC - ABG 02/27 with pH 7.308, pCO2 81, pO2 76.9 - started on BiPAP1 with improvement. Continue home BiPAP per pulm recs. - management of pneumonia as above (3) Cerebral amyloid angiopathy: Code(s): E85.4 - Organ-limited amyloidosis; I68.0 - Cerebral amyloid angiopathy Status: Chronic Assessment and Plan: -Scattered foci of old microhemorrhage in the cerebrum, most commonly seen with amyloid angiopathy or chronic hypertensive encephalopathy seen on MRI performed on 02/16. Patient has an appointment with Neurology on 06/18/2025 for her amyloidosis. Daughter at bedside feels that patient ?forgetful? recently. CT head today reveals no acute hemorrhage, small lacunar infarct in the left caudate of indeterminate age, probable chronic ischemic white matter changes. MRI brain was recommended to follow up on the lacunar infarct. 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 A few unchanged scattered foci of old microhemorrhage in the cerebrum most typically seen with hypertension or amyloid angiopathy. Indeterminate 2.3 x 1.8 x 0.5 cm flap pedunculated lesion arising from the left parietal scalp. Correlate with physical exam. -neurology consult to follow for cerebral amyloid angiopathy-unclear if changes are related to hypertensive or amyloid angiopathy. Recommended outpatient follow-up. (4) COPD (chronic obstructive pulmonary disease): Qualifiers: COPD type: unspecified COPD Qualified Code(s): J44.9 - Chronic obstruc tive pulmonary disease, unspecified Code(s): J44.9 - Chronic obstructive pulmonary disease, unspecified Status: Chronic Assessment and Plan: Wears 2 L O2 baseline at home. Patient denies fevers, chest pain, cough. History of severe emphysema. Pt sees Dr. Queen with pulmonology outpatient -pulmonology consulted as above - Amber Q6H p.r.n. - home medications: Albuterol inhaler, glycopyrrolate- formoterol, DuoNeb -continue glycopyrrolate- formoterol -continue home O2 at 2 L (5) HTN (hypertension): Qualifiers: Hypertension type: primary hypertension Qualified Code(s): I10 - Essential (primary) hypertension Code(s): I10 - Essential (primary) hypertension Status: Chronic Assessment and Plan: Initial BP 133/76 -continue amlodipine 5 mg daily (6) Hydronephrosis, right: Code(s): N13.30 - Unspecified hydronephrosis Status: Acute Assessment and Plan: - CT A/P with chronic R hydronephrosis and stable renal stones - no flank pain - no intervention warranted Plan DVT prophylaxis: SCDs, Lovenox Code status: No CPR-mechanical ventilation okay Dispo: likely discharge home Monday Subjective Date/time seen: 03/02/25 07:37 Interval history: Patient seen and examined up in chair, feeling better today. Hoping to go home tomorrow. Review of Systems Review of Systems: All systems reviewed & are unremarkable except as noted in HPI and below Exam Narrative: General: NAD, frail Eyes: EOMI ENT: neck supple Cardiovascular: Regular rate and rhythm Respiratory: Clear to auscultation bilaterally, respirations even and unlabored on 2L NC Gastrointestinal: Soft, non tender Genitourinary: no suprapubic tenderness Musculoskeletal: No edema Skin: warm, dry Neuro: Alert and oriented x4. Psych: anxious Objective Data Vital Signs Vital Signs: Vital Signs - 24 hr 03/01/25 12:00 03/01/25 13:57 03/01/25 14:06 Temperature Pulse Rate 81 76 74 Respiratory Rate 20 20 Blood Pressure Pulse Oximetry Oxygen Delivery Oxygen Flow Rate 03/01/25 14:51 03/01/25 16:00 03/01/25 19:56 Temperature 97.6 F 97.9 F Pulse Rate 77 82 77 Respiratory Rate 18 16 Blood Pressure 118/51 L 130/81 Pulse Oximetry 100 99 Oxygen Delivery Oxygen Flow Rate 03/01/25 20:00 03/01/25 20:02 03/01/25 20:35 Temperature 98.6 F Pulse Rate 80 80 Respiratory Rate 18 Blood Pressure 135/51 L Pulse Oximetry 96 100 Oxygen Delivery Nasal Cannula Oxygen Flow Rate 3 03/01/25 22:40 03/02/25 02:20 03/02/25 02:20 Temperature Pulse Rate 73 67 71 Respiratory Rate 17 Blood Pressure Pulse Oximetry 98 96 Oxygen Delivery Oxygen Flow Rate 03/02/25 02:26 03/02/25 04:10 Temperature 98.7 F Pulse Rate 71 66 Respiratory Rate 17 20 Blood Pressure 128/66 Pulse Oximetry 98 Oxygen Delivery Oxygen Flow Rate Intake/Output Intake/Output: Intake & Output 02/27/25 02/28/25 03/01/25 03/02/25 23:59 23:59 23:59 22:59 Intake Total 1735 1350 1104 Output Total 400 Balance 1335 1350 1104 Meds/Results Medications: Active Medications Generic Name Dose Route Start Last Admin Trade Name Freq PRN Reason Stop Dose Admin Acetaminophen 650 mg 02/26/25 16:46 Acetaminophen 325 Mg Tablet PO Q4H PRN Mild Pain (1-3) or Fever Albuterol/Ipratropium 3 ml 02/26/25 14:00 Ipratropium 0.5 Mg/Albuterol Sulfate 2.5 Mg (Base) Ampul.Neb 3 Ml INHALATION Q6HRT PRN Shortness Of Breath Or Wheezing Albuterol/Ipratropium 3 ml 02/27/25 14:00 03/02/25 02:17 Ipratropium 0.5 Mg/Albuterol Sulfate 2.5 Mg (Base) Ampul.Neb 3 Ml INHALATION 3 ml Q6HRT DONNA Administration Amlodipine Besylate 5 mg 02/27/25 09:00 03/01/25 10:17 Amlodipine Besylate 5 Mg Tablet PO 5 mg DAILY DONNA Administration Calcium Carbonate 500 mg 02/27/25 09:00 03/01/25 10:16 Calcium/Vitamin D 500 Mg/5 Mcg (200 I.U.) Tablet PO 500 mg DAILY DONNA Administration Calcium Carbonate 200 mg 02/28/25 21:46 02/28/25 21:30 Calcium Carbonate (Tums) 500 Mg (200 Mg Elemental) PO 200 mg Q6H PRN Administration Indigestion Cyanocobalamin 500 mcg 02/27/25 09:00 03/01/25 10:16 Cyanocobalamin 500 Mcg Tablet PO 500 mcg DAILY DONNA Administration Cyanocobalamin 2,000 mcg 02/27/25 09:00 03/01/25 10:17 Cyanocobalamin 1,000 Mcg Tablet PO 2,000 mcg DAILY DONNA Administration Docusate Sodium 100 mg 02/26/25 15:25 Docusate Sodium 100 Mg Capsule PO Q12H PRN Constipation Enoxaparin Sodium 40 mg 02/28/25 09:00 03/01/25 10:38 Enoxaparin 40 Mg/0.4 Ml Syringe SUB-Q 40 mg DAILY DONNA Administration Guaifenesin 1,200 mg 02/26/25 21:00 03/01/25 21:07 Guaifenesin 12 Hr 600 Mg Tabcr PO 1,200 mg Q12HR DONNA Administration Azithromycin 500 mg/ Sodium 250 mls @ 250 mls/hr 02/27/25 11:00 03/01/25 10:17 Chloride IVPB 03/03/25 11:59 250 mls/hr Q24H DONNA Administration Cefepime HCl 2 gm/ Sodium 50 mls @ 100 mls/hr 02/27/25 11:30 03/01/25 21:07 Chloride IVPB 100 mls/hr Q12HR DONNA Administration Loperamide HCl 2 mg 03/01/25 12:26 Loperamide Hcl 2 Mg Capsule PO Q6H PRN Diarrhea Saccharomyces Boulardii 250 mg 03/01/25 17:00 03/01/25 17:22 Saccharomyces Boulardii 250 Mg Capsule PO 250 mg BID DONNA Administration Vitamin D 50 mcg 02/27/25 09:00 03/01/25 10:16 Cholecalciferol (Vitamin D3) 25 Mcg (1,000 Units) Tablet PO 50 mcg DAILY DONNA Administration Vitamin E 1,000 unit 02/27/25 09:00 03/01/25 10:18 Vitamin E 1,000 Unit Capsule PO 1,000 unit DAILY DONNA Administration Radiology Results: ITS Impressions Head CT 02/26/25 09:49 IMPRESSION: 1. No acute intracranial hemorrhage. No mass effect. 2. Small lacunar infarction in the left caudate of indeterminate age. Consider a brain MRI 3. Probable chronic ischemic white matter change. If symptoms persist or worsen, consider a short-term follow-up study or additional imaging for further assessment. Chest X-Ray 02/26/25 09:54 Impression: Bilateral pneumonia. The findings appear progressed compared to the previous study Brain MRI 02/26/25 15:47 IMPRESSION: 1. No acute intracranial process. 2. 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 3. A few unchanged scattered foci of old microhemorrhage in the cerebrum most typically seen with hypertension or amyloid angiopathy. 4. Indeterminate 2.3 x 1.8 x 0.5 cm flap pedunculated lesion arising from the left parietal scalp. Correlate with physical exam. Chest CT 02/27/25 10:35 IMPRESSION: 1. No significant interval change in multifocal pneumonia in the bilateral upper lobes and lingula. 2. New small bilateral posterior layering pleural effusions. 3. Interval resolution of prior right middle lobe collapse. 4. Severe emphysema. 5. Right-sided nephrolithiasis with mild right hydronephrosis. Consider further evaluation with CT of the abdomen and pelvis to assess for more distal obstructing stone or mass. Abdomen/Pelvis CT 02/28/25 09:55 IMPRESSION: 1. Chronic mild right hydronephrosis, stable from 02/08/17. 2. Nonobstructing right kidney stones. 3. Severe emphysema. 4. Small pleural effusions. Labs Labs: Laboratory Results - last 24 hr 03/02/25 05:27 WBC 3.8 L RBC 3.57 L Hgb 9.8 L Hct 33.3 L MCV 93.3 MCH 27.5 MCHC 29.4 L RDW 15.7 H Plt Count 193 MPV 9.2 Immature Gran % (Auto) 0.5 Neut % (Auto) 60.4 Lymph % (Auto) 23.1 Winkler % (Auto) 12.2 H Eos % (Auto) 2.7 Baso % (Auto) 1.1 Lymph # (Auto) 0.87 L Winkler # (Auto) 0.5 Eos # (Auto) 0.1 Baso # (Auto) 0.0 Abs Immat Gran (auto) 0.02 Absolute Neuts (auto) 2.3 Absolute Nucleated RBC 0.000 Band Neutrophils % Not Reportable Nucleated RBC % 0.0 Platelet Estimate Adequate Hypochromasia 1+ Ovalocytes 1+ Schistocytes None seen Sodium 134 L Potassium 4.0 Chloride 94 L Carbon Dioxide 36 H Anion Gap 4 BUN 14 Creatinine 0.36 L Estim Creat Clear Calc Not Reportable Estimated GFR > 60 Glucose 75 Calcium 8.7 Total Bilirubin 0.3 AST 21 ALT 9 Alkaline Phosphatase 52 Total Protein 5.7 L Albumin 3.0 L Quality VTE Prophylaxis VTE prophylaxis: mechanical ordered and pharmacologic ordered
[2025-03-02] MEDS: CHOLECALCIFEROL (VITAMIN D3) 25 MCG (1,000 UNITS) TABLET 50 MCG PO (08:48)
[2025-03-02] MEDS: CALCIUM/VITAMIN D 500 MG/5 MCG (200 I.U.) TABLET PO (08:48)
[2025-03-02] MEDS: VITAMIN E 1,000 UNIT CAPSULE 1000 UNIT PO (08:48)
[2025-03-02] MEDS: CEFEPIME 2 GM in SODIUM CHLORIDE 0.9% IV 50 ML 100 ML IVPB ×2 (08:48→20:09)
[2025-03-02] MEDS: SACCHAROMYCES BOULARDII 250 MG CAPSULE PO ×2 (08:48→20:28)
[2025-03-02] MEDS: CYANOCOBALAMIN 500 MCG TABLET PO (08:48)
[2025-03-02] MEDS: CYANOCOBALAMIN 1,000 MCG TABLET 2000 MCG PO (08:48)
[2025-03-02] MEDS: guaiFENesin 12 HR 600 MG TABCR 1200 MG PO ×2 (08:49→20:28)
[2025-03-02] MEDS: ENOXAPARIN 40 MG/0.4 ML SYRINGE SUB-Q (08:52)
[2025-03-02] MEDS: AZITHROMYCIN IV 500 MG in SODIUM CHLORIDE 0.9% IV 250 ML IVPB (12:01)
[2025-03-02 13:52] LABS: Alveolar/Arterial O2 Gradient 50.1 mmHg; Fractional Inspired Oxygen 36 %; HCO3 ABG 43.8 mEq/l (22.0-26.0); Oxygen Content ABG 15.1 %vol (16.0-22.0); Oxygen Saturation ABG 96.7 % (95.0-100.0); PO2 ABG 101.7 mmHg (80.0-100.0); PO2 FiO2 Ratio Arterial Blood 2.82 %
[2025-03-02 14:59] LABS: Liters per Minute 4.0 LPM; Modified Allen's Test Pass; PCO2 ABG 90.4 mmHg (35.0-45.0); Site Drawn LEFT RADIAL
--- NOTE | 2025-03-02 15:21 | PC.NURSE ---
This patient, Ritu Liao, was transferred to [IMU room 202 ] on 03/02/25 at 1440. Personal belongings sent with patient. Report given to [Zelda KAUR ]. Appropriate documentation sent with patient.
--- NOTE | 2025-03-02 16:00 | ADMGEN ---
This patient, Ritu Liao, was admitted to IMU Room 202-01. Patient/family oriented to hospital policies and general routines including ID bracelet, bed and alarms, visiting hours, pain management, procedures, bathroom and other care routines, personal items, smoking policy, room service/diet, and visiting hours. Information on how to activate the Rapid Response Team has been discussed. Patient/Family are encouraged to report perceived risks to care and to ask questions if they do not understand what they are told or what they should do.
[2025-03-02 16:10] LABS: Alveolar/Arterial O2 Gradient 70.3 mmHg; Fractional Inspired Oxygen 30 %; HCO3 ABG 40.0 mEq/l (22.0-26.0); Oxygen Content ABG 14.3 %vol (16.0-22.0); PO2 ABG 51.7 mmHg (80.0-100.0); PO2 FiO2 Ratio Arterial Blood 1.72 %
--- NOTE | 2025-03-02 16:21 | PCRCNOTE ---
pt results was given to PA and nurse around 13:30-13:50 the verbal read back was not at 14:58
[2025-03-02 16:26] LABS: PCO2 ABG 78.2 mmHg (35.0-45.0)
[2025-03-02 16:27] LABS: Oxygen Saturation ABG 82.1 % (95.0-100.0); Site Drawn RIGHT RADIAL
[2025-03-02 16:28] LABS: Modified Allen's Test Pass
[2025-03-02 16:29] LABS: Non-Invasive Expiratory Pressure 6 CMH2O; Non-Invasive Inspiratory Pressure 18 CMH2O; Non-Invasive Vent Rate 18 /MIN
[2025-03-02 19:22] LABS: Alveolar/Arterial O2 Gradient 41.7 mmHg; Fractional Inspired Oxygen 30 %; HCO3 ABG 43.7 mEq/l (22.0-26.0); Oxygen Content ABG 13.8 %vol (16.0-22.0); Oxygen Saturation ABG 95.5 % (95.0-100.0); PO2 ABG 83.4 mmHg (80.0-100.0); PO2 FiO2 Ratio Arterial Blood 2.78 %
[2025-03-02 19:35] LABS: PCO2 ABG 75.6 mmHg (35.0-45.0)
[2025-03-02 19:36] LABS: Modified Allen's Test Pass; Site Drawn RIGHT RADIAL
[2025-03-03] VITALS (26 sets, daily range): BP systolic 120–156; BP diastolic 61–84; PULSE 65–83; RESP 16–27; TEMP 36.2–36.8; O2SAT 91–100
[2025-03-03] MEDS: IPRATROPIUM 0.5 MG/ALBUTEROL SULFATE 2.5 MG (BASE) AMPUL.NEB 3 ML INHALATION ×4 (01:26→20:46)
[2025-03-03 04:27] LABS: Hematocrit 33.8 % (37.0-47.0); Hemoglobin 9.7 g/dL (12.0-15.0); Immature Granulocyte Percent A 0.2 % (0-0.5); Lymphocytes Absolute Auto 1.09 K/mm3 (0.9-3.2); Mean Corpuscular HGB Conc 28.7 g/dl (32-36); Mean Corpuscular Hemoglobin 27.6 pg (26-34); Mean Corpuscular Volume 96.3 fl (80-100); Nucleated Red Blood Cells Absolute Auto 0.000 K/mm3 (0.0-0.012); Nucleated Red Blood Cells Perc 0.0 % (0.0-0.2); Platelet Count Result 168 k/mm3 (150-375); Red Blood Count 3.51 M/mm3 (4.2-5.4); White Blood Count 4.1 K/mm3 (4.5-10.0)
[2025-03-03 05:00] LABS: Alanine Aminotransferase 10 U/L (6-35); Albumin Level 3.0 g/dL (3.5-5.1); Alkaline Phosphatase 48 U/L (38-126); Aspartate Amino Transferase 21 U/L (14-36); Bilirubin,Total 0.2 mg/dL (0.2-1.3); Blood Urea Nitrogen 17 mg/dL (7-17); Calcium 8.4 mg/dL (8.4-10.2); Carbon Dioxide > 40 mmol/L (22-30); Chloride 95 mmol/L (98-107); Estimated Glomerular Filt Rate > 60; Glucose 77 mg/dL (65-110); Potassium 4.2 mmol/L (3.4-5.0); Sodium 136 mmol/L (137-145); Total Protein 5.7 g/dL (6.3-8.2)
[2025-03-03 05:09] LABS: Alveolar/Arterial O2 Gradient 34.3 mmHg; Fractional Inspired Oxygen 30 %; HCO3 ABG 45.2 mEq/l (22.0-26.0); Oxygen Content ABG 14.6 %vol (16.0-22.0); Oxygen Saturation ABG 96.8 % (95.0-100.0); PO2 ABG 92.8 mmHg (80.0-100.0); PO2 FiO2 Ratio Arterial Blood 3.09 %
[2025-03-03 05:16] LABS: PCO2 ABG 73.9 mmHg (35.0-45.0); Site Drawn RIGHT RADIAL
[2025-03-03 05:17] LABS: Modified Allen's Test Pass
[2025-03-03] MEDS: CHOLECALCIFEROL (VITAMIN D3) 25 MCG (1,000 UNITS) TABLET 50 MCG PO (09:55)
[2025-03-03] MEDS: ENOXAPARIN 40 MG/0.4 ML SYRINGE SUB-Q (09:55)
[2025-03-03] MEDS: SACCHAROMYCES BOULARDII 250 MG CAPSULE PO (09:55)
[2025-03-03] MEDS: VITAMIN E 1,000 UNIT CAPSULE 1000 UNIT PO (09:56)
[2025-03-03] MEDS: CYANOCOBALAMIN 500 MCG TABLET PO (09:56)
[2025-03-03] MEDS: guaiFENesin 12 HR 600 MG TABCR 1200 MG PO ×2 (09:56→21:01)
[2025-03-03] MEDS: CALCIUM/VITAMIN D 500 MG/5 MCG (200 I.U.) TABLET PO (09:56)
[2025-03-03] MEDS: CEFEPIME 2 GM in SODIUM CHLORIDE 0.9% IV 50 ML 100 ML IVPB ×2 (09:56→20:57)
[2025-03-03] MEDS: CYANOCOBALAMIN 1,000 MCG TABLET 2000 MCG PO (09:56)
[2025-03-03] MEDS: AZITHROMYCIN IV 500 MG in SODIUM CHLORIDE 0.9% IV 250 ML IVPB (10:41)
--- NOTE | 2025-03-03 15:09 | P.PNIM_ITS ---
Progress Note: A&P Assessment and Plan (1) Pneumonia: Qualifiers: Laterality: bilateral Lung location: lower lobe of lung Pneumonia type: due to unspecified organism Qualified Code(s): J18.9 - Pneumonia, unspecified organism Code(s): J18.9 - Pneumonia, unspecified organism Status: Acute Assessment and Plan: Patient presents with increased dyspnea on exertion. Patient denies fevers, chest pain, cough. Her caregiver states she had to increase her O2 flow to 4 L. Patient did see her PCP 2 days ago and a chest x-ray was completed showing worsening bilateral pneumonia worsening from a CT performed on 02/10. She was prescribed Augmentin and azithromycin. Chest x-ray with bilateral pneumonia appearing progressed compared to the previous study. Patient does have a history of severe emphysema. Wears 2 L at baseline.Pt sees Dr. Queen with pulmonology outpatient who has been following this chronic pneumonia since her last admission 12/10/24-12/17/24. - CT chest with new small bilateral posterior layering pleural effusions - MRSA PCR negative - COVID/flu/RSV negative -Legionella urine antigen and sputum culture ordered -continue home O2 at 2 L and BiPAP qHS -DuoNeb q.6 p.r.n. -Mucinex 600 Q 12 -acetaminophen 650 Q 4 p.r.n. -pulmonology consulted - switched antibiotics to cefepime to cover for pseudomonas. Continue azithromycin. BiPAP as below. Discussed with Dr. Queen - plan to continue antibiotics through the weekend and he will follow-up on Monday (2) Acute on chronic respiratory failure with hypoxia and hypercapnia: Code(s): J96.21 - Acute and chronic respiratory failure with hypoxia; J96.22 - Acute and chronic respiratory failure with hypercapnia Status: Acute Assessment and Plan: - patient chronically requiring 2L NC - ABG 02/27 with pH 7.308, pCO2 81, pO2 76.9 - patient has intermittently required BiPAP since admission - management of pneumonia as above - likely plan to transition to hospice today (3) Cerebral amyloid angiopathy: Code(s): E85.4 - Organ-limited amyloidosis; I68.0 - Cerebral amyloid angiopathy Status: Chronic Assessment and Plan: -Scattered foci of old microhemorrhage in the cerebrum, most commonly seen with amyloid angiopathy or chronic hypertensive encephalopathy seen on MRI performed on 02/16. Patient has an appointment with Neurology on 06/18/2025 for her amyloidosis. Daughter at bedside feels that patient ?forgetful? recently. CT head today reveals no acute hemorrhage, small lacunar infarct in the left caudate of indeterminate age, probable chronic ischemic white matter changes. MRI brain was recommended to follow up on the lacunar infarct. 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 A few unchanged scattered foci of old microhemorrhage in the cerebrum most typically seen with hypertension or amyloid angiopathy. Indeterminate 2.3 x 1.8 x 0.5 cm flap pedunculated lesion arising from the left parietal scalp. Correlate with physical exam. -neurology consult to follow for cerebral amyloid angiopathy-unclear if changes are related to hypertensive or amyloid angiopathy. Recommended outpatient follow-up. (4) COPD (chronic obstructive pulmonary disease): Qualifiers: COPD type: unspecified COPD Qualified Code(s): J44.9 - Chronic obstructive pulmonary disease, unspecified Code(s): J44.9 - Chronic obstructive pulmonary disease, unspecified Status: Chronic Assessment and Plan: Wears 2 L O2 baseline at home. Patient denies fevers, chest pain, cough. History of severe emphysema. Pt sees Dr. Queen with pulmonology outpatient -pulmonology consulted as above - DuoNebs Q6H p.r.n. - home medications: Albuterol inhaler, glycopyrrolate- formoterol, DuoNeb -continue glycopyrrolate- formoterol -continue home O2 at 2 L, AVAPs qHS (5) HTN (hypertension): Qualifiers: Hypertension type: primary hypertension Qualified Code(s): I10 - Essential (primary) hypertension Code(s): I10 - Essential (primary) hypertension Status: Chronic Assessment and Plan: Initial BP 133/76 -continue amlodipine 5 mg daily (6) Hydronephrosis, right: Code(s): N13.30 - Unspecified hydronephrosis Status: Acute Assessment and Plan: - CT A/P with chronic R hydronephrosis and stable renal stones - no flank pain - no intervention warranted Plan DVT prophylaxis: SCDs, Lovenox Code status: DNR - no CPR or intubation Dispo: likely discharge with hospice services tomorrow Subjective Date/time seen: 03/03/25 15:09 Interval history: Patient seen and examined at bedside. Patient is alert and oriented x4 this AM. She was able to tell me that she knows she is very sick and that her COPD is getting worse. She told me that she would never want to be intubated and put on a ventilator for any reason. She wishes to be discharged home and made comfortable because she feels is imminent. Patient's main wish is to pass at home. We discussed hospice services which she is agreeable to. I discussed Ritu's wishes with patient's daughter, Estefany, over the phone and she is agreeable to hospice consultation. Per nursing, patient is confused this afternoon and was placed back on BiPAP for presumed hypercapnia. Hospice to evaluate in the next 1-2 hours. Family is at bedside. Review of Systems Review of Systems: All systems reviewed & are unremarkable except as noted in HPI and below Exam Narrative: General: NAD, frail Eyes: EOMI ENT: neck supple Cardiovascular: Regular rate and rhythm Respiratory: Clear to auscultation bilaterally, respirations even and unlabored on 2L NC Gastrointestinal: Soft, non tender Genitourinary: no suprapubic tenderness Musculoskeletal: No edema Skin: warm, dry Neuro: Alert and oriented x4. Psych: anxious Objective Data Vital Signs Vital Signs: Vital Signs - 24 hr 03/02/25 15:15 03/02/25 15:49 03/02/25 16:00 Temperature 97.7 F Pulse Rate 78 82 86 Respiratory Rate 20 25 H Blood Pressure 110/59 L Pulse Oximetry 96 97 97 Oxygen Delivery BiPAP Oxygen Flow Rate Fraction of Inspired Oxygen 30 03/02/25 17:06 03/02/25 18:00 03/02/25 19:28 Temperature Pulse Rate 80 71 71 Respiratory Rate 18 Blood Pressure Pulse Oximetry Oxygen Delivery Oxygen Flow Rate Fraction of Inspired Oxygen 03/02/25 19:38 03/02/25 19:39 03/02/25 19:41 Temperature Pulse Rate 72 71 71 Respiratory Rate 18 18 18 Blood Pressure Pulse Oximetry 100 100 Oxygen Delivery BiPAP Oxygen Flow Rate Fraction of Inspired Oxygen 30 03/02/25 19:46 03/02/25 20:00 03/02/25 20:00 Temperature 97.3 F L Pulse Rate 71 73 Respiratory Rate 18 Blood Pressure 131/61 Pulse Oximetry 100 94 Oxygen Delivery BiPAP Oxygen Flow Rate Fraction of Inspired Oxygen 30 03/02/25 22:34 03/03/25 00:00 03/03/25 00:00 Temperature 97.2 F L Pulse Rate 70 74 Respiratory Rate 27 H Blood Pressure 120/72 Pulse Oximetry 98 99 Oxygen Delivery BiPAP Oxygen Flow Rate Fraction of Inspired Oxygen 30 03/03/25 00:00 03/03/25 01:27 03/03/25 01:29 Temperature Pulse Rate 73 70 70 Respiratory Rate 16 19 Blood Pressure Pulse Oximetry 99 Oxygen Delivery Oxygen Flow Rate Fraction of Inspired Oxygen 03/03/25 01:36 03/03/25 02:00 03/03/25 04:00 Temperature 97.9 F Pulse Rate 71 73 67 Respiratory Rate 18 18 Blood Pressure 132/61 Pulse Oximetry 97 Oxygen Delivery Oxygen Flow Rate Fraction of Inspired Oxygen 03/03/25 04:00 03/03/25 04:00 03/03/25 04:31 Temperature Pulse Rate 71 72 Respiratory Rate 20 Blood Pressure Pulse Oximetry 99 100 Oxygen Delivery BiPAP Oxygen Flow Rate Fraction of Inspired Oxygen 30 03/03/25 06:28 03/03/25 08:00 03/03/25 08:00 Temperature 97.7 F Pulse Rate 65 71 Respiratory Rate 24 H Blood Pressure 156/76 H Pulse Oximetry 100 95 Oxygen Delivery Nasal Cannula Oxygen Flow Rate 2 Fraction of Inspired Oxygen 03/03/25 08:00 03/03/25 08:43 03/03/25 08:43 Temperature Pulse Rate 73 74 74 Respiratory Rate 20 20 Blood Pressure Pulse Oximetry 98 Oxygen Delivery Nasal Cannula Oxygen Flow Rate 2 Fraction of Inspired Oxygen 28 03/03/25 08:55 03/03/25 10:00 03/03/25 12:00 Temperature 98.3 F Pulse Rate 71 78 81 Respiratory Rate 20 22 H Blood Pressure 146/84 H Pulse Oximetry 91 Oxygen Delivery Oxygen Flow Rate Fraction of Inspired Oxygen 03/03/25 12:00 03/03/25 12:00 03/03/25 13:00 Temperature Pulse Rate 81 76 Respiratory Rate 20 Blood Pressure Pulse Oximetry 92 Oxygen Delivery Nasal Cannula Oxygen Flow Rate 2 Fraction of Inspired Oxygen 03/03/25 14:00 Temperature Pulse Rate 80 Respiratory Rate Blood Pressure Pulse Oximetry Oxygen Delivery Oxygen Flow Rate Fraction of Inspired Oxygen Intake/Output Intake/Output: Intake & Output 02/28/25 03/01/25 03/02/2525 23:59 23:59 22:59 23:59 Intake Total 1350 1404 950 220 Output Total 600 Balance 1350 1404 350 220 Meds/Results Medications: Active Medications Generic Name Dose Route Start Last Admin Trade Name Freq PRN Reason Stop Dose Admin Acetaminophen 650 mg 02/26/25 16:46 Acetaminophen 325 Mg Tablet PO Q4H PRN Mild Pain (1-3) or Fever Albuterol/Ipratropium 3 ml 02/26/25 14:00 Ipratropium 0.5 Mg/Albuterol Sulfate 2.5 Mg (Base) Ampul.Neb 3 Ml INHALATION Q6HRT PRN Shortness Of Breath Or Wheezing Albuterol/Ipratropium 3 ml 02/27/25 14:00 03/03/25 12:58 Ipratropium 0.5 Mg/Albuterol Sulfate 2.5 Mg (Base) Ampul.Neb 3 Ml INHALATION 3 ml Q6HRT DONNA Administration Amlodipine Besylate 5 mg 02/27/25 09:00 03/03/25 09:56 Amlodipine Besylate 5 Mg Tablet PO 5 mg DAILY DONNA Administration Calcium Carbonate 500 mg 02/27/25 09:00 03/03/25 09:56 Calcium/Vitamin D 500 Mg/5 Mcg (200 I.U.) Tablet PO 500 mg DAILY DONNA Administration Calcium Carbonate 200 mg 02/28/25 21:46 02/28/25 21:30 Calcium Carbonate (Tums) 500 Mg (200 Mg Elemental) PO 200 mg Q6H PRN Administration Indigestion Cyanocobalamin 500 mcg 02/27/25 09:00 03/03/25 09:56 Cyanocobalamin 500 Mcg Tablet PO 500 mcg DAILY DONNA Administration Cyanocobalamin 2,000 mcg 02/27/25 09:00 03/03/25 09:56 Cyanocobalamin 1,000 Mcg Tablet PO 2,000 mcg DAILY DONNA Administration Docusate Sodium 100 mg 02/26/25 15:25 Docusate Sodium 100 Mg Capsule PO Q12H PRN Constipation Enoxaparin Sodium 40 mg 02/28/25 09:00 03/03/25 09:55 Enoxaparin 40 Mg/0.4 Ml Syringe SUB-Q 40 mg DAILY DONNA Administration Guaifenesin 1,200 mg 02/26/25 21:00 03/03/25 09:56 Guaifenesin 12 Hr 600 Mg Tabcr PO 1,200 mg Q12HR DONNA Administration Cefepime HCl 2 gm/ Sodium 50 mls @ 100 mls/hr 02/27/25 11:30 03/03/25 09:56 Chloride IVPB 100 mls/hr Q12HR DONNA Administration Loperamide HCl 2 mg 03/01/25 12:26 Loperamide Hcl 2 Mg Capsule PO Q6H PRN Diarrhea Saccharomyces Boulardii 250 mg 03/01/25 17:00 03/03/25 09:55 Saccharomyces Boulardii 250 Mg Capsule PO 250 mg BID DONNA Administration Vitamin D 50 mcg 02/27/25 09:00 03/03/25 09:55 Cholecalciferol (Vitamin D3) 25 Mcg (1,000 Units) Tablet PO 50 mcg DAILY DONNA Administration Vitamin E 1,000 unit 02/27/25 09:00 03/03/25 09:56 Vitamin E 1,000 Unit Capsule PO 1,000 unit DAILY DONNA Administration Radiology Results: ITS Impressions Head CT 02/26/25 09:49 IMPRESSION: 1. No acute intracranial hemorrhage. No mass effect. 2. Small lacunar infarction in the left caudate of indeterminate age. Consider a brain MRI 3. Probable chronic ischemic white matter change. If symptoms persist or worsen, consider a short-term follow-up study or additional imaging for further assessment. Brain MRI 02/26/25 15:47 IMPRESSION: 1. No acute intracranial process. 2. 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 3. A few unchanged scattered foci of old microhemorrhage in the cerebrum most typically seen with hypertension or amyloid angiopathy. 4. Indeterminate 2.3 x 1.8 x 0.5 cm flap pedunculated lesion arising from the left parietal scalp. Correlate with physical exam. Chest CT 02/27/25 10:35 IMPRESSION: 1. No significant interval change in multifocal pneumonia in the bilateral upper lobes and lingula. 2. New small bilateral posterior layering pleural effusions. 3. Interval resolution of prior right middle lobe collapse. 4. Severe emphysema. 5. Right-sided nephrolithiasis with mild right hydronephrosis. Consider further evaluation with CT of the abdomen and pelvis to assess for more distal obstructing stone or mass. Abdomen/Pelvis CT 02/28/25 09:55 IMPRESSION: 1. Chronic mild right hydronephrosis, stable from 02/08/17. 2. Nonobstructing right kidney stones. 3. Severe emphysema. 4. Small pleural effusions. Chest X-Ray 03/02/25 16:04 Impression: Bilateral pneumonia superimposed on chronic lung disease Labs Labs: Laboratory Results - last 24 hr 02/28/25 03/02/25 03/02/25 06:45 16:04 19:07 WBC RBC Hgb Hct MCV MCH MCHC RDW Plt Count MPV Immature Gran % (Auto) Neut % (Auto) Lymph % (Auto) Hemphill % (Auto) Eos % (Auto) Baso % (Auto) Lymph # (Auto) [place]ill # (Auto) Eos # (Auto) Baso # (Auto) Abs Immat Gran (auto) Absolute Neuts (auto) Absolute Nucleated RBC Nucleated RBC % Puncture Site Right radial Right radial ABG pH 7.327 L 7.380 ABG pCO2 78.2 H* 75.6 H* ABG pO2 51.7 L 83.4 ABG PO2/FiO2 Ratio 1.72 2.78 ABG HCO3 40.0 H 43.7 H ABG O2 Saturation 82.1 L* 95.5 ABG O2 Content 14.3 L 13.8 L ABG Base Excess 11.2 15.8 A-a Gradient 70.3 41.7 Oxyhemoglobin 86.4 L* 95.7 Total Hemoglobin 11.8 L 10.2 L O2 Delivery Device Non-invasive vent Bipap O2 Liters/Min Not Reportable Not Reportable Vent Rate 18 FiO2 30 30 Expiratory Pressure 6 6 Inspiratory Pressure 18 18 Sodium Potassium Chloride Carbon Dioxide Anion Gap BUN Creatinine Estim Creat Clear Calc Estimated GFR Glucose Calcium Total Bilirubin AST ALT Alkaline Phosphatase Total Protein Albumin M.pneumoniae IgM Titer <770 03/03/25 03/03/25 04:01 04:59 WBC 4.1 L RBC 3.51 L Hgb 9.7 L Hct 33.8 L MCV 96.3 MCH 27.6 MCHC 28.7 L RDW 15.9 H Plt Count 168 MPV 9.4 Immature Gran % (Auto) 0.2 Neut % (Auto) 55.7 Lymph % (Auto) 26.4 Hemphill % (Auto) 13.1 H Eos % (Auto) 3.6 Baso % (Auto) 1.0 Lymph # (Auto) 1.09 Hemphill # (Auto) 0.5 Eos # (Auto) 0.2 Baso # (Auto) 0.0 Abs Immat Gran (auto) 0.01 Absolute Neuts (auto) 2.3 Absolute Nucleated RBC 0.000 Nucleated RBC % 0.0 Puncture Site Right radial ABG pH 7.404 ABG pCO2 73.9 H* ABG pO2 92.8 ABG PO2/FiO2 Ratio 3.09 ABG HCO3 45.2 H ABG O2 Saturation 96.8 ABG O2 Content 14.6 L ABG Base Excess 17.4 A-a Gradient 34.3 Oxyhemoglobin 96.8 Total Hemoglobin 10.6 L O2 Delivery Device Bipap O2 Liters/Min Not Reportable Vent Rate FiO2 30 Expiratory Pressure 6 Inspiratory Pressure 18 Sodium 136 L Potassium 4.2 Chloride 95 L Carbon Dioxide > 40 H Anion Gap BUN 17 Creatinine 0.38 L Estim Creat Clear Calc Not Reportable Estimated GFR > 60 Glucose 77 Calcium 8.4 Total Bilirubin 0.2 AST 21 ALT 10 Alkaline Phosphatase 48 Total Protein 5.7 L Albumin 3.0 L M.pneumoniae IgM Titer Quality VTE Prophylaxis VTE prophylaxis: mechanical ordered and pharmacologic ordered
--- NOTE | 2025-03-03 15:16 | PCPTNOTE ---
Attempted to see patient for PT, however per nursing advised not to see patient due to poor O2 SATs.
--- NOTE | 2025-03-03 17:20 | P.PNPL_ITS ---
Progress Note: A&P Assessment and Plan (1) Pneumonia: Code(s): J18.9 - Pneumonia, unspecified organism Status: Acute Assessment and Plan: 12/09/2024 through 12/17/24:? Patient admitted to [facility] with worsening cough, shortness of breath, weakness, wheezing.? Patient had a leukocytosis, ABG on 1 L 7.53/44/ oxygen not measured.? CT angiogram of the chest compared to 05/06/2021 with severe singh lobular emphysema and dense infiltrates with new consolidations in the right upper lobe, right middle lobe and left upper lobe.? I felt this was pneumonia and not a COPD exacerbation.? Treated with steroids, bronchodilators, azithromycin and ceftriaxone.? Patient had a history of Pseudomonas in 2019 and her MRSA swab was positive and she was changed to vancomycin and Levaquin.? discharged on linezolid 600 mg p.o. q.12 hours and Levaquin 750 Q 48 hours to complete a total of 10 days. patient was seen in the clinic on 01/15/2025 and had improved clinically. I ordered a CT scan for 02/05/2025 to follow her infiltrates. 02/05/2025: CT scan of the chest showed bilateral upper lobe consolidations and infiltrates with improvement on the right and worsening on the left compared to 12/09/2024. I talked to the patient on 02/11/2025 and she was doing well exercise tolerance had improved, denied any infectious complaints her weight was stable and her appetite was good. Minimal phlegm in the morning and I suspected her left upper lobe worsening was related to mucus rather than progressive pneumonia. I started guaifenesin 1200 b.i.d., Cornet flutter valve Q 2-4 hours while she is awake. Plan was to repeat a CT scan in 6 months. 02/26/2025: Patient presents with 4 day history of worsening weakness, confusion, dyspnea on exertion and increased oxygen requirements. She denies fever, chills, rigors, phlegm production or hemoptysis. She is afebrile. She has new leukocytosis. Her procalcitonin is 0.1 yesterday. MRSA swab is negative. Chest x-ray with increased left upper lobe infiltrate and was started on ceftriaxone, azithromycin given 1 dose of Zosyn. 02/27/25: Patient was in no respiratory distress on 2 L nasal cannula saturations 98%. Afebrile. White blood cell count 5.7, creatinine 0.36. BNP 770, CRP 6.1, TSH 1.46, free T4 1.21, procalcitonin 0.1. COVID, influenza, RS V RT PCR assay negative. CT scan of the chest shows no significant change in her left upper lobe greater than right upper lobe infiltrates since 02/05/2025. New very small bilateral pleural effusions. Improvement in her right middle lobe collapse. Plan: Her right upper lobe and right lower lobe infiltrates from 12/09/2024 had responded to vancomycin, Levaquin followed by linezolid and Levaquin outpatient treatment for total of 10 days. She has a persistent anterior segment of the left upper lobe dense consolidation with air bronchogram that has not changed from CT scan on 02/05/2025 to today. Discussed with ID pharmacy and at this time will cover for Pseudomonas with cefepime 2 g q.12 hours and continue azithromycin. I have ordered respiratory pathogen panel, urine for Legionella, urine for pneumococcal and serum mycoplasma IgM. Will follow deb swann clinically. 02/28/25: Patient is up sitting in a chair. She says she is breathing better and breathing normal at rest. when she walks to the bathroom she says she is very weak but has no dyspnea on exertion. She denies phlegm or hemoptysis. When I enter the room she is on 2 L nasal cannula saturation 97%. I decreased her 1 L nasal cannula her saturation was 95%. She is afebrile. White blood cell count 3.4, creatinine 0.33. Procalcitonin has increased from 0.1 on 02/27/2025 to 0.7 today. COPD has decreased from 6.1 on 02/27/2025 to 4.7 today. Plan: Will continue treatment for Pseudomonas with cefepime 2 g q.12 hours and azithromycin for total of 5 days. Continue DuoNebs q.6 hours, continue guaifenesin 1200 mg p.o. b.i.d. to help with expectoration. Would continue th leonardo IV antibiotics through the weekend and will re-evaluate patient on 03/03/2025. 03/03/25; she is going on hospice, will not be taking any antibiotics. (2) Chronic respiratory failure with hypoxia and hypercapnia: Code(s): J96.11 - Chronic respiratory failure with hypoxia; J96.12 - Chronic respiratory failure with hypercapnia Status: Acute Assessment and Plan: Patient with chronic hypoxemic respiratory failure with last home O2 assessment on 02/05/2025 requiring 1 L at rest and 4 L with activity. Patient with chronic hypercarbic respiratory failure on home noninvasive ventilation since May 06, 2021 with AVAPS auto EPAP through [employer]. Download from [employer] from 10/15/2024 through 12/17/2024: Patient is on IVAPSauto EPAP, breath rate is 10, target alveolar ventilation 5.2 L, minimum EPAP 7, maximal EPAP 10, minimum pressure support 8, maximal pressure support 20. Rise time 200 msec.? % of days used 4 more hours is 84%.? Average usage on days used is 6 hour 22 minutes.? AHI 0.5.? Apnea index 0.0.? Hypopnea index 0.5. ?Median respiratory rate 14, median alveolar ventilation 6.2.? Median tidal volume is 486 mL, median minute ventilation is 6.6, median EPAP 8.2.? Median peak pressure is 17.6.? Median leak 0.0, 95th percentile leak 22.5. I interpret this download as good compliance with adequate pressures and low leak.? 02/27/25: Patient was in no respiratory distress on 2 L nasal cannula saturations 98%. She is on 2 L nasal cannula decreased her to 1 L nasal cannula her saturations were 88%. I ordered a stat ABG on 2 L nasal cannula 7.. Patient was placed on noninvasive ventilation with the AVAPS mode And settings were adjusted to comfort resulting in rate of 14, tidal volume 500, EPAP 8, minimal inspiratory pressure 9, maximal inspiratory pressure 25, inspiratory time 1.0, rise of 5 and 36% FiO2. Plan: Patient to wear noninvasive ventilation with the AVAPS mode during the day p.r.n. and she should wear this the 10 night. I will obtain an overnight oximetry and an ABG prior to removal in the morning. 02/28/2025: Patient wore the hospital noninvasive ventilator with the AVAPS settings as above With 30% FiO2 and said that she slept well. Patient had an overnight oximetry on these settings with recording duration of 8 hours and 19 minutes. Average saturation 99%. Low saturation 92%. Time with saturation less than or equal to 88% was 0 minutes. Oxygen desaturation index 0.1. patient had an ABG prior to removal of the mass with a pH of 7.41/59/86. Plan: Current hospital machine with AVAPS settings as above provide adequate oxygenation and ventilation. Patient's family has brought in her home noninvasive ventilator and will use this tonight with 2 L bleed in and an overnight oximetry and ABG prior to removal. (3) COPD (chronic obstructive pulmonary disease): Qualifiers: COPD type: unspecified COPD Qualified Code(s): J44.9 - Chronic obstructive pulmonary disease, unspecified Code(s): J44.9 - Chronic obstructive pulmonary disease, unspecified Status: Chronic Assessment and Plan: GOLD grade 4 group B COPD COPD diagnosed in 1999 with chronic hypoxic and hypercarbic respiratory failure on noninvasive ventilation and on home oxygen 2.0 L 24-7. Tobacco use (40 PY quit 2010). 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 PFTs 07/16/2020 with an FEV1 of 0.41 L, 24% predicted, ratio 28%, air trapping, hyperinflation and a moderately decreased DLCO when adjusted for alveolar volume. CTA on 05/06/2021 with severe panlobular emphysema in all lung hector. In patient exacerbation 05/06/2021 through 05/11/2021, Outpatient exacerbation 06/15/2021. outpatient COPD Exacerbation 11/03/2023. 01/10/2022 with a white blood cell count of 6.7, eosinophils 0.6%=40/uL. 07/18/2022: White blood cell count 5.6, eosinophils 0.4% equal 22 per micro L. 06/26/2023: White blood cell count 5.6, eosinophils 0.2%=11/uL. Patient has been on noninvasive ventilation at night since 05/11/2021. Outpatient exacerbation 11/03/2023. 04/15/2024. inpatient admission for pneumonia 12/09/2024 through 12/17/2024. home O2 assessment 02/05/2025 required 1 L a at rest and 4 L with activity admitted to the hospital on 02/24/2025 with worsening weakness, confusion, dyspnea on exertion and infiltrate in the left upper lobe that is increased since 12/16/2024. She has had no wheezing. 02/27/2025: Patient with no wheezing on exam. She has no increase in her phlegm production and no purulence sputum. I do not believe this is a COPD exacerbation but with concerns for pneumonia. Plan: I do not believe this is a COPD exacerbation. Patient does have worsening hypoxemic and hypercarbic respiratory failure and she is currently on noninvasive ventilation. I will place her on DuoNebs q.4 hours. I will hold off on inhaled or systemic steroids at this time. 02/28/2025: No wheezes. I do not believe the patient is having a COPD exacerbation. Plan: Will continue DuoNebs q.4 hours and follow the patient clinically. Plan Plan: patient has decided to go home tomorrow on hospice, wants to wear BiPAP for now to assist with shortness of breath. SHe will not be on antibiotics with hospice. Will sign off, thank you. Subjective Date/time seen: 03/03/25 17:20 Interval history: 02/26/2025 New pulmonary consult for COPD, pneumonia and respiratory failure. Patient with history of gold grade 4 group E COPD with chronic hypoxemic respiratory failure requiring 1 L at rest and 4 L with activity and chronic hypercarbic respiratory failure since May 06 2021 requiring home noninvasive ventilation with IVAPS auto EPAP with 4 L bleed in at night. Patient is followed in the Pulmonary Clinic in last seen on 01/22/2025. This is a copy of that note. 12/09/2024 through 12/17/24:? Patient admitted to [facility] with worsening cough, shortness of breath, weakness, wheezing.? Patient had a leukocytosis, ABG on 1 L 7.53/44/ oxygen not measured.? CT angiogram of the chest compared to 05/06/2021 with severe singh lobular emphysema and dense infiltrates with new consolidations in the right upper lobe, right middle lobe and left upper lobe.? I felt this was pneumonia and not a COPD exacerbation.? Treated with steroids, bronchodilators, azithromycin and ceftriaxone.? Patient had a history of Pseudomonas in 2019 and her MRSA swab was positive and she was changed to vancomycin and Levaquin.? She continued to improve and on 12/13/2024 she was on 1 L at rest.? She tolerated her home NIV with 4 L bleed in, her overnight oximetry had no desaturations less than or equal to 88%.? Patient was discharged on 12/17/24 on linezolid 600 mg p.o. q.12 hours last dose 12/21/2024, Levofloxacin 750 mg p.o. Q 48 hours, last dose 12/21/2024 (both to complete 10 days).? Continue her Wixela 250-50 1 puff b.i.d., tiotropium 18 mcg q.day, rescue albuterol, guaifenesin 1200 p.o. b.i.d., Cornet flutter valve and her home NIV through [facility] with 4 L bleed in. Home O2 assessment demonstrated she requires 1 L at rest and 3 with activity. 01/15/25: ?PCP office visit note.? Patient presents with concerns for recurrent falls 3 times this year.? Last fall was about 2 days ago while attempting to get up.? States she would spin and go out of control.? Denies preceding shortness of breath or chest pain.? Denies injuries.? MRI ordered.? Fall precautions discussed.? Recommend home PT and OT.? Follow-up 1 month Today on 01/22/25 she tells me that She completed her medicines after her hospitalization and she has no hospitalizations or exacerbations since 12/17/2024. Overall the patient tells me she is improving since her hospitalization. She is getting stronger and walking more around her trailer. She does 2 laps with a cane now. Her breathing does not limit her. Her M MRC grade is 3. She has no fever, no hemoptysis. She produces phlegm 1 time in the morning. The patient is taking Wixela 250-50 at 1 puff b.i.d., tiotropium 18 mcg at 1 puff q.day, albuterol nebulizer 1 time a day and she is not using any rescue albuterol or rescue levalbuterol. She is no longer taking guaifenesin 1200 p.o. b.i.d.. She is not smoking or exposed to secondhand smoke. patient is prescribed 1 L at rest but wearing 2 L at rest with saturations 90- 93%. She is prescribed 3 L with activity and wearing 3-1/2 L and saturations with activity or 84-85%. She stops takes deep breaths through her nose and expires through her mouth and her saturations improve after 30 seconds to 1 minute. At night she is wearing 3-1/2 L and prescribed 4 L with her noninvasive ventilator. When her Oxymizer is put on 4 L the patient tells me she gets a yellow light this says no oxygen. Her CAT score is 12. She is up-to-date on her influenza vaccine, she is unwilling to receive the COVID booster and she has already received the RSV vaccine. The patient is wearing her fullface mask every night. she has a good clinical benefit. She lives in a trailer with no I service and we were unable to obtain a download. Download from [facility] from 10/15/2024 through 12/17/2024: Patient is on IVAPSauto EPAP, breath rate is 10, target alveolar ventilation 5.2 L, minimum EPAP 7, maximal EPAP 10, minimum pressure support 8, maximal pressure support 20. Rise time 200 msec.? % of days used 4 more hours is 84%.? Average usage on days used is 6 hour 22 minutes.? AHI 0.5.? Apnea index 0.0.? Hypopnea index 0.5. ?Median respiratory rate 14, median alveolar ventilation 6.2.? Median tidal volume is 486 mL, median minute ventilation is 6.6, median EPAP 8.2.? Median peak pressure is 17.6.? Median leak 0.0, 95th percentile leak 22.5. I interpret this download as good compliance with adequate pressures and low leak.? Plan: patient with 1 outpatient exacerbation in the last year, pneumonia requiring hospitalization 12/06/2024 and low peripheral eosinophilia less than 100 I prescribed Anoro Ellipta and discontinued her Wixela and Spiriva. I order Home O2 assessment and CT scan of the chest. 02/05/2025: Home O2 assessment: Rest room air saturation 87%. Rest nasal cannula 1 L saturation 90%. Exercise nasal cannula 1 L saturation 88%. Exercise 2 L nasal cannula saturation 86%. Exercise 3 L nasal cannula saturation 88%. Exercise 4 L saturation 91%. Patient requires 1 L at rest and 4 with activity. 02/05/2025: CT scan of the chest showed bilateral upper lobe consolidations and infiltrates with improvement on the right and worsening on the left compared to 12/09/2024. I talked to the patient on 02/11/2025 and she was doing well exercise tolerance had improved, denied any infectious complaints her weight was stable and her appetite was good. Minimal phlegm in the morning and I suspected her left upper lobe worsening was related to mucus rather than progressive pneumonia. I started guaifenesin 1200 b.i.d., Cornet flutter valve Q 2-4 hours while she is awake. Plan was to repeat a CT scan in 6 months. Patient was confused and I spoke to her caregiver who sees or 3 times a week. Over the last 3 or 4 days the patient was weak and confused with worsening dyspnea on exertion but no fever, chills, change in her cough, change in her phlegm production or hemoptysis. The patient saw her PCP on 02/25/2024 and she was on 4 L nasal cannula saturations 94%. A chest x-ray was ordered which showed right upper lobe, right lower lobe infiltrates with no change since 12/16/2024 and a left upper lobe infiltrate that was worse since 12/16/2024. The patient was prescribed Augmentin and azithromycin. 02/26/2025 the patient had worse weakness and confusion and the caregiver called her PCP who told her to bring her to the emergency department. Blood pressure was 132/69 heart rate 70, respirations 18, saturations on 2 L were 100%. Patient had no wheezes. White blood cell count 5.1, eosinophils 0.4%. Creatinine 0.43, bicarb greater than 40, lactic acid 0.7, procalcitonin 0.1, MRSA swab negative. Chest x-ray showed increased left upper lobe and right upper lobe infiltrates compared to 02/24/2025. Patient was started on ceftriaxone, azithromycin and given 1 dose of Zosyn and admitted to the floor. 02/27/2025: Patient was in no respiratory distress on 2 L nasal cannula saturations 98%. She knew her name, knew this was [facility], knew the d ate and knew Trump was the [place]. She followed simple commands. She told me her breathing was worse than normal but denied fever, chills or rigors. She said she had increased cough with no phlegm and no hemoptysis. She complained of being extremely weak. She is on 2 L nasal cannula decreased her to 1 L nasal cannula her saturations were 88%. White blood cell count 5.7, creatinine 0.36. BNP 770, CRP 6.1, TSH 1.46, free T4 1.21, procalcitonin 0.1. COVID, influenza, RS V RT PCR assay negative. I ordered a stat ABG on 2 L nasal cannula 7.. Patient was placed on noninvasive ventilation with the AVAPS mode And settings were adjusted to comfort resulting in rate of 14, tidal volume 500, EPAP 8, minimal inspiratory pressure 9, maximal inspiratory pressure 25, inspiratory time 1.0, rise of 5 and 36% FiO2. 02/28/25: Patient is up sitting in a chair. She says she is breathing better and breathing normal at rest. when she walks to the bathroom she says she is very weak but has no dyspnea on exertion. She denies phlegm or hemoptysis. When I enter the room she is on 2 L nasal cannula saturation 97%. I decreased her 1 L nasal cannula her saturation was 95%. She is afebrile. White blood cell count 3.4, creatinine 0.33. Procalcitonin has increased from 0.1 on 02/27/2025 to 0.7 today. COPD has decreased from 6.1 on 02/27/2025 to 4.7 today. Patient wore the hospital noninvasive ventilator with the AVAPS settings as above With 30% FiO2 and said that she slept well. Patient had an overnight oximetry on these settings with recording duration of 8 hours and 19 minutes. Average saturation 99%. Low saturation 92%. Time with saturation less than or equal to 88% was 0 minutes. Oxygen desaturation index 0.1. patient had an ABG prior to removal of the mass with a pH of 7.41/59/86. 03/03/2025 Hospital follow up; 17:50 pm; Her daughters Estefany and Bhavana are here, and Estefany's . Now is on BiPAP 18/6, rate 18, FiO2 30%; the patient requested wearing BiPAP today. She had a visit from Hospice, plans to go home tomorrow on hospice. Estefany tells me that the patient is going to her house. Earlier today, she was on nasal cannula 2-3 L/min, saturation 94-100%. She was transferred to IMU yesterday Mar 02. She is on a hospital supplied non-invasive ventilatory device, uses her own NIV on IVAPS settings at home. ABG today = pH 7.40, pCO2 73.9, PO2 92.8, HCO3 45.2, saturation 96% on 18/6, 30% and rate 18. Her exhaled tidal volume 545 mL, minute ventilation 10.8 L/min. WBC is 4.1, lower compared to admission. 03/02 CXR = Impression: Bilateral pneumonia superimposed on chronic lung disease. Intermittent confusion; not going to take any more antibiotics, and is going home tomorrow on hospice.I told the patient and her daughters that she does not have to wear BiPAP, miguel since this mask is too large, covers her chin and has an air leak. The patient asked for this when she was short of breath earlier instead of a nasal cannula. DATA: 02/27/25: EXAMINATION: CT diagnostic chest wo con INDICATION: pneumonia COMPARISON: 02/05/2025 FINDINGS: Severe emphysema. Again seen is consolidation in the bilateral upper lobes and the lingula which appears unchanged since the most recent prior study but which has significantly improved in the right upper lobe since earlier study from 12/09/2024. The opacities in the left upper lobe and lingula have largely developed since the study on 12/09/2024 which should be most consistent with pneumonia. Interval resolution of prior right middle lobe collapse. Calcified nodules in the right lower lobe along with calcified right hilar lymph and multiple small splenic calcifications nodes consistent with old granulomatous disease. Small bilateral posterior layering pleural effusions, right greater than left. Heart size is normal. Atherosclerotic coronary artery calcifications. No pericardial effusion. Thoracic aorta is normal in caliber. No pathologically enlarged thoracic lymphadenopathy. Tiny renal stones layering dependently in a few of the calyces of the right kidney. There is mild right hydronephrosis. Thoracic kyphosis and mild dextrocurvature with mild spondylosis. IMPRESSION: 1. No significant interval change in multifocal pneumonia in the bilateral upper lobes and lingula. 2. New small bilateral posterior layering pleural effusions. 3. Interval resolution of prior right middle lobe collapse. 4. Severe emphysema. 5. Right-sided nephrolithiasis with mild right hydronephrosis. Consider further evaluation with CT of the abdomen and pelvis to assess for more distal obstructing stone or mass. ? 12/17/2024: Home O2 assessment:? Rest room air saturation 87%.? Rest nasal cannula 1 L saturation 94%.? Exercise nasal cannula 1 L saturation 84%.? Exercise nasal cannula 2 L saturation 86%.? Exercise nasal cannula 3 L saturation 91%.? Patient requires 1 L at rest and 3 with activity. 12/13/24: Patient wore home noninvasive ventilator AVAPS-AE, breath rate is 10, tidal volume 520, minimum EPAP 7, maximal EPAP 10, minimum pressure support 8, maximal pressure support 20. inspiratory time 0.6. Rise time 2.0, with 4 L bleed in and had an overnight oximetry with recording duration of 6 hours and 18 minutes. Average saturation 96%. Low saturation 92%. Time with saturation less than or equal to 88% was 0 minutes. Oxygen desaturation index 0. 12/12/24: Echo Summary 1. Complete two-dimensional, color flow and Doppler transthoracic echocardiogram is performed. 2. Left ventricular chamber dimension is normal. 3. Left ventricular systolic function is normal, estimated at 60-65. 4. The left ventricular diastolic function is grade I diastolic dysfunction. 5. E/e' 9 is minimally elevated. 6. There is moderate aortic valve sclerosis. 7. There is trace mitral valve regurgitation. Right Ventricle Right ventricular chamber dimension is normal. Right ventricular systolic function is normal and with TAPSE 1.7 cm. Left Atria Left atrial chamber dimension is normal. Right Atria Right atrial chamber dimension is normal. 12/09/24: EXAMINATION: CTA chest PE protocol INDICATION: Shortness of breath COMPARISON: 05/06/2021 FINDINGS: No pulmonary emboli. Severe emphysema. There is septal line thickening and flui d filling of the cystic airspaces in the right upper lobe with dense region of consolidation in the suprahilar region consistent with pneumonia. Is also a small region of peripheral consolidation along a band of scarring in the left upper lobe which could also represent atelectasis or pneumonia. Very small right pleural effusion. Heart size is normal. Atherosclerotic coronary artery calcific location. No pericardial effusion. Thoracic aorta is normal in caliber with no dissection. No pathologically enlarged thoracic lymphadenopathy. Likely benign 6 mm low-attenuation nodule in the right thyroid lobe. Multiple splenic calcific lesions consistent with old granulomatous disease. Couple small regions of cortical scarring at the left kidney consistent with sequela of prior infection or infarction. Visualized upper abdomen is otherwise unremarkable. Mild thoracic spondylosis. IMPRESSION: 1. No pulmonary embolism. 2. Severe emphysema with extensive airspace disease in the right upper lobe including dense consolidation in the suprahilar region consistent with pneumonia. Possible additional small region of pneumonia versus atelectasis at the peripheral left upper lobe. 3. Very small right pleural effusion. 06/18/2024: Overnight oximetry on noninvasive ventilator with 5 L bleed in. Recording duration 2 hours and 38 minutes. Basal saturation 96.6%. High saturation 99%. Low saturation 90%. Time with saturation less than or equal to 88% was 0 minutes. Oxygen desaturation index is 0. I will continue noninvasive ventilator with 5 L bleed in at night. 05/08/2023: Alpha 1 anti trypsin genotype MM, normal ??05/11/2021:? Home O2 assessment.? Rest room air saturations 85%, rest 1 L nasal cannula saturation 87%, rest 2 L nasal cannula saturation 94%, ambulation 2 L saturation 90%.? Patient requires 2 L with rest and with activity. ?05/06/21 EXAMINATION: CTA chest PE protocol ??INDICATION: SOB. ??Comparison is made to prior examination from 02/08/2017. ??FINDINGS:? Pulmonary arteries are well opacified and without intraluminal filling defects. ? No thoracic aortic dissection.? There is severe emphysema. Dependent subsegmental atelectasis.? Some endobronchial debris in the bronchus intermedius.? There is no mediastinal, hilar or axillary lymphadenopathy. ? There is no pneumothorax. ? Heart normal in size. ? There is mild coronary arterial calcification, arterial sclerosis.? Upper abdomen is unremarkable. ? There is thoracic spondylosis without osteoblastic or osteolytic lesions identified. ??IMPRESSION: ??1.? Dependent subsegmental atelectasis. ??2.? Some endobronchial debris. ??3.? Severe emphysema. ??4.? No pulmonary emboli. ?? ?07/16/2020: I have a report from PFTs at [facility]? [facility]. ??This is a pulmonary function test with pre and post-bronchodilator spirometry, plethysmography and diffusing capacity.? ?Findings: ?Spirometry: ? There is decreased maximal expiratory airflow at all lung volumes with the concave expiratory flow tracing.? The contour of the inspiratory flow tracing is normal.? The pre bronchodilator FVC is 1.47 L, 63% predicted.? The pre bronchodilator FEV1 is 0.41 L, 24% predicted.? The pre bronchodilator FEV1:? FVC ratio is 28%.? The post bronchodilator FVC is 1.86 L, representing a 27% increase.? The post bronchodilator FEV1 is 0.47 L, representing a 16% increase.? The post bronchodilator FEV1: FVC ratio is 25%.? ?Plethysmography:? Total lung capacity is 6.11 L, 154% predicted.? The functio nal residual capacity is 5.34 L, 216% predicted.? The residual volume is 4.64 L, 281% predicted.? ?Plethysmography:? The diffusing capacity unadjusted for hemoglobin and carboxyhemoglobin is 3.0, 21% predicted.? The diffusing capacity adjusted for alveolar volume is 1.79, 53% predicted. ?Impression: There is a very severe obstructive abnormality with significant improvement after inhaling a single dose of albuterol. The increase in residual volume is consistent with air trapping from an obstructive abnormality.? Hyperinflation is present as demonstrated by the increase in functional residual capacity and total lung capacity and is consistent with an obstructive abnormality. The diffusing capacity unadjusted for hemoglobin and carboxyhemoglobin is severely decreased and remains moderately decreased when adjusted for alveolar volume. ?There are no prior studies for comparison ? ??09/25/2003 report no raw data available ??TEST: PFT ??FVC, FEV1, GRB1% decreased. There is acute bronchodilator response. Lung volumes are increased. RAW is increased. DLCO is decreased. ??Impression: Severe obstructive ventilatory defect with acute bronchodilator response. Decreased DLCO. ?08/23/1999: Chest X ray report: ??CHEST ??Indication: Fever. ??Technique: PA and lateral views. ??The lungs are prominently hyperinflated, with flattening of the diaphragm and increased retrosternal air space, consistent with chronic obstructive pulmonary disease. ??There are some increased interstitial markings in the lungs, particularly in the right mid and lower lung field which may be chronic. One cannot exclude some interstitial pneumonitis. Correlation clinically and comparison with prior chest radiographs is recommended. No pulmonary consolidation is evident. There is no pleural effusion. No pulmonary vascular congestion or any apparent adenopathy or pneumothorax is noted. ??The cardiac and mediastinal silhouettes are unremarkable. There is mild aortic calcification. ??IMPRESSION: CHRONIC OBSTRUCTIVE PULMONARY DISEASE. 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 RECOMMEND COMPARISON WITH PRIOR ??CHEST RADIOGRAPHS AND CLINICAL CORRELATION TO ??DIFFERENTIATE ACUTE FROM CHRONIC. Review of Systems Review of Systems: All systems reviewed & are unremarkable except as noted in HPI and below Exam Narrative: GEN: appears alert, not able to determine that she is oriented while wearing BiPAP as she cannot speak clearly, not in distress. HEENT: pupils are equal, EOMI, symmetrical face NECK: Trachea is midline CHEST: Equal air entry, symmetric excursion, decreased breath sounds, hyperinflated chest CV: Regular S1S2 no m/g/r Extremities : no clubbing, cyanosis, or edema. No calf tenderness. PSYCH: appears to have normal cognition; RN tells me that she has been confused at times. Objective Data Vital Signs Vital Signs: Vital Signs - 24 hr 03/02/25 18:00 03/02/25 19:28 03/02/25 19:38 Temperature Pulse Rate 71 71 72 Respiratory Rate 18 18 Blood Pressure Pulse Oximetry Oxygen Delivery Oxygen Flow Rate Fraction of Inspired Oxygen 03/02/25 19:39 03/02/25 19:41 03/02/25 19:46 Temperature 36.3 C L Pulse Rate 71 71 71 Respiratory Rate 18 18 18 Blood Pressure 131/61 Pulse Oximetry 100 100 100 Oxygen Delivery BiPAP Oxygen Flow Rate Fraction of Inspired Oxygen 30 03/02/25 20:00 03/02/25 20:00 03/02/25 22:34 Temperature Pulse Rate 73 70 Respiratory Rate Blood Pressure Pulse Oximetry 94 Oxygen Delivery BiPAP Oxygen Flow Rate Fraction of Inspired Oxygen 30 03/03/25 00:00 03/03/25 00:00 03/03/25 00:00 Temperature 36.2 C L Pulse Rate 74 73 Respiratory Rate 27 H Blood Pressure 120/72 Pulse Oximetry 98 99 Oxygen Delivery BiPAP Oxygen Flow Rate Fraction of Inspired Oxygen 30 03/03/25 01:27 03/03/25 01:29 03/03/25 01:36 Temperature Pulse Rate 70 70 71 Respiratory Rate 16 19 18 Blood Pressure Pulse Oximetry 99 Oxygen Delivery Oxygen Flow Rate Fraction of Inspired Oxygen 03/03/25 02:00 03/03/25 04:00 03/03/25 04:00 Temperature 36.6 C Pulse Rate 73 67 Respiratory Rate 18 Blood Pressure 132/61 Pulse Oximetry 97 99 Oxygen Delivery BiPAP Oxygen Flow Rate Fraction of Inspired Oxygen 30 03/03/25 04:00 03/03/25 04:31 03/03/25 06:28 Temperature Pulse Rate 71 72 65 Respiratory Rate 20 Blood Pressure Pulse Oximetry 100 Oxygen Delivery Oxygen Flow Rate Fraction of Inspired Oxygen 03/03/25 08:00 03/03/25 08:00 03/03/25 08:00 Temperature 36.5 C Pulse Rate 71 73 Respiratory Rate 24 H Blood Pressure 156/76 H Pulse Oximetry 100 95 Oxygen Delivery Nasal Cannula Oxygen Flow Rate 2 Fraction of Inspired Oxygen 03/03/25 08:43 03/03/25 08:43 03/03/25 08:55 Temperature Pulse Rate 74 74 71 Respiratory Rate 20 20 20 Blood Pressure Pulse Oximetry 98 Oxygen Delivery Nasal Cannula Oxygen Flow Rate 2 Fraction of Inspired Oxygen 28 03/03/25 10:00 03/03/25 12:00 03/03/25 12:00 Temperature 36.8 C Pulse Rate 78 81 Respiratory Rate 22 H Blood Pressure 146/84 H Pulse Oximetry 91 92 Oxygen Delivery Nasal Cannula Oxygen Flow Rate 2 Fraction of Inspired Oxygen 03/03/25 12:00 03/03/25 13:00 03/03/25 13:10 Temperature Pulse Rate 81 76 75 Respiratory Rate 20 20 Blood Pressure Pulse Oximetry Oxygen Delivery Oxygen Flow Rate Fraction of Inspired Oxygen 03/03/25 14:00 03/03/25 16:00 Temperature 36.6 C Pulse Rate 80 83 Respiratory Rate 20 Blood Pressure 134/75 Pulse Oximetry 100 Oxygen Delivery Oxygen Flow Rate Fraction of Inspired Oxygen Intake/Output Intake/Output: Intake & Output 02/28/25 03/01/25 03/02/25 03/03/25 23:59 23:59 22:59 23:59 Intake Total 1350 1404 950 760 Output Total 600 700 Balance 1350 1404 350 60 Meds/Results Medications: Active Medications Generic Name Dose Route Start Last Admin Trade Name Freq PRN Reason Stop Dose Admin Acetaminophen 650 mg 02/26/25 16:46 Acetaminophen 325 Mg Tablet PO Q4H PRN Mild Pain (1-3) or Fever Albuterol/Ipratropium 3 ml 02/26/25 14:00 Ipratropium 0.5 Mg/Albuterol Sulfate 2.5 Mg (Base) Ampul.Neb 3 Ml INHALATION Q6HRT PRN Shortness Of Breath Or Wheezing Albuterol/Ipratropium 3 ml 02/27/25 14:00 03/03/25 12:58 Ipratropium 0.5 Mg/Albuterol Sulfate 2.5 Mg (Base) Ampul.Neb 3 Ml INHALATION 3 ml Q6HRT DONNA Administration Amlodipine Besylate 5 mg 02/27/25 09:00 03/03/25 09:56 Amlodipine Besylate 5 Mg Tablet PO 5 mg DAILY DONNA Administration Calcium Carbonate 500 mg 02/27/25 09:00 03/03/25 09:56 Calcium/Vitamin D 500 Mg/5 Mcg (200 I.U.) Tablet PO 500 mg DAILY DONNA Administration Calcium Carbonate 200 mg 02/28/25 21:46 02/28/25 21:30 Calcium Carbonate (Tums) 500 Mg (200 Mg Elemental) PO 200 mg Q6H PRN Administration Indigestion Cyanocobalamin 500 mcg 02/27/25 09:00 03/03/25 09:56 Cyanocobalamin 500 Mcg Tablet PO 500 mcg DAILY DONNA Administration Cyanocobalamin 2,000 mcg 02/27/25 09:00 03/03/25 09:56 Cyanocobalamin 1,000 Mcg Tablet PO 2,000 mcg DAILY DONNA Administration Docusate Sodium 100 mg 02/26/25 15:25 Docusate Sodium 100 Mg Capsule PO Q12H PRN Constipation Enoxaparin Sodium 40 mg 02/28/25 09:00 03/03/25 09:55 Enoxaparin 40 Mg/0.4 Ml Syringe SUB-Q 40 mg DAILY DONNA Administration Guaifenesin 1,200 mg 02/26/25 21:00 03/03/25 09:56 Guaifenesin 12 Hr 600 Mg Tabcr PO 1,200 mg Q12HR DONNA Administration Cefepime HCl 2 gm/ Sodium 50 mls @ 100 mls/hr 02/27/25 11:30 03/03/25 09:56 Chloride IVPB 03/05/25 21:29 100 mls/hr Q12HR DONNA Administration Loperamide HCl 2 mg 03/01/25 12:26 Loperamide Hcl 2 Mg Capsule PO Q6H PRN Diarrhea Saccharomyces Boulardii 250 mg 03/01/25 17:00 03/03/25 09:55 Saccharomyces Boulardii 250 Mg Capsule PO 250 mg BID DONNA Administration Vitamin D 50 mcg 02/27/25 09:00 03/03/25 09:55 Cholecalciferol (Vitamin D3) 25 Mcg (1,000 Units) Tablet PO 50 mcg DAILY DONNA Administration Vitamin E 1,000 unit 02/27/25 09:00 03/03/25 09:56 Vitamin E 1,000 Unit Capsule PO 1,000 unit DAILY DONNA Administration Radiology Results: ITS Impressions Head CT 02/26/25 09:49 IMPRESSION: 1. No acute intracranial hemorrhage. No mass effect. 2. Small lacunar infarction in the left caudate of indeterminate age. Consider a brain MRI 3. Probable chronic ischemic white matter change. If symptoms persist or worsen, consider a short-term follow-up study or additional imaging for further assessment. Brain MRI 02/26/25 15:47 IMPRESSION: 1. No acute intracranial process. 2. 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 3. A few unchanged scattered foci of old microhemorrhage in the cerebrum most typically seen with hypertension or amyloid angiopathy. 4. Indeterminate 2.3 x 1.8 x 0.5 cm flap pedunculated lesion arising from the left parietal scalp. Correlate with physical exam. Chest CT 02/27/25 10:35 IMPRESSION: 1. No significant interval change in multifocal pneumonia in the bilateral upper lobes and lingula. 2. New small bilateral posterior layering pleural effusions. 3. Interval resolution of prior right middle lobe collapse. 4. Severe emphysema. 5. Right-sided nephrolithiasis with mild right hydronephrosis. Consider further evaluation with CT of the abdomen and pelvis to assess for more distal obstructing stone or mass. Abdomen/Pelvis CT 02/28/25 09:55 IMPRESSION: 1. Chronic mild right hydronephrosis, stable from 02/08/17. 2. Nonobstructing right kidney stones. 3. Severe emphysema. 4. Small pleural effusions. Chest X-Ray 03/02/25 16:04 Impression: Bilateral pneumonia superimposed on chronic lung disease Labs Labs: Laboratory Results - last 24 hr 02/28/25 03/02/25 03/03/25 06:45 19:07 04:01 WBC 4.1 L RBC 3.51 L Hgb 9.7 L Hct 33.8 L MCV 96.3 MCH 27.6 MCHC 28.7 L RDW 15.9 H Plt Count 168 MPV 9.4 Immature Gran % (Auto) 0.2 Neut % (Auto) 55.7 Lymph % (Auto) 26.4 [place] % (Auto) 13.1 H Eos % (Auto) 3.6 Baso % (Auto) 1.0 Lymph # (Auto) 1.09 [place] # (Auto) 0.5 Eos # (Auto) 0.2 Baso # (Auto) 0.0 Abs Immat Gran (auto) 0.01 Absolute Neuts (auto) 2.3 Absolute Nucleated RBC 0.000 Nucleated RBC % 0.0 Puncture Site Right radial ABG pH 7.380 ABG pCO2 75.6 H* ABG pO2 83.4 ABG PO2/FiO2 Ratio 2.78 ABG HCO3 43.7 H ABG O2 Saturation 95.5 ABG O2 Content 13.8 L ABG Base Excess 15.8 A-a Gradient 41.7 Oxyhemoglobin 95.7 Total Hemoglobin 10.2 L O2 Delivery Device Bipap O2 Liters/Min Not Reportable FiO2 30 Expiratory Pressure 6 Inspiratory Pressure 18 Sodium 136 L Potassium 4.2 Chloride 95 L Carbon Dioxide > 40 H Anion Gap BUN 17 Creatinine 0.38 L Estim Creat Clear Calc Not Reportable Estimated GFR > 60 Glucose 77 Calcium 8.4 Total Bilirubin 0.2 AST 21 ALT 10 Alkaline Phosphatase 48 Total Protein 5.7 L Albumin 3.0 L M.pneumoniae IgM Titer <770 03/03/25 04:59 WBC RBC Hgb Hct MCV MCH MCHC RDW Plt Count MPV Immature Gran % (Auto) Neut % (Auto) Lymph % (Auto) [place] % (Auto) Eos % (Auto) Baso % (Auto) Lymph # (Auto) [place] # (Auto) Eos # (Auto) Baso # (Auto) Abs Immat Gran (auto) Absolute Neuts (auto) Absolute Nucleated RBC Nucleated RBC % Puncture Site Right radial ABG pH 7.404 ABG pCO2 73.9 H* ABG pO2 92.8 ABG PO2/FiO2 Ratio 3.09 ABG HCO3 45.2 H ABG O2 Saturation 96.8 ABG O2 Content 14.6 L ABG Base Excess 17.4 A-a Gradient 34.3 Oxyhemoglobin 96.8 Total Hemoglobin 10.6 L O2 Delivery Device Bipap O2 Liters/Min Not Reportable FiO2 30 Expiratory Pressure 6 Inspiratory Pressure 18 Sodium Potassium Chloride Carbon Dioxide Anion Gap BUN Creatinine Estim Creat Clear Calc Estimated GFR Glucose Calcium Total Bilirubin AST ALT Alkaline Phosphatase Total Protein Albumin M.pneumoniae IgM Titer
[2025-03-04] VITALS (13 sets, daily range): BP systolic 132–146; BP diastolic 54–72; PULSE 65–83; RESP 16–20; TEMP 36.4–36.8; O2SAT 95–100
[2025-03-04] MEDS: IPRATROPIUM 0.5 MG/ALBUTEROL SULFATE 2.5 MG (BASE) AMPUL.NEB 3 ML INHALATION ×2 (02:22→07:26)
[2025-03-04 04:12] LABS: Hematocrit 32.3 % (37.0-47.0); Hemoglobin 9.3 g/dL (12.0-15.0); Immature Granulocyte Percent A 0.4 % (0-0.5); Lymphocytes Absolute Auto 0.97 K/mm3 (0.9-3.2); Mean Corpuscular HGB Conc 28.8 g/dl (32-36); Mean Corpuscular Hemoglobin 27.7 pg (26-34); Mean Corpuscular Volume 96.1 fl (80-100); Nucleated Red Blood Cells Absolute Auto 0.000 K/mm3 (0.0-0.012); Nucleated Red Blood Cells Perc 0.0 % (0.0-0.2); Platelet Count Result 158 k/mm3 (150-375); Red Blood Count 3.36 M/mm3 (4.2-5.4); White Blood Count 4.7 K/mm3 (4.5-10.0)
[2025-03-04 04:36] LABS: Anisocytosis 1+; Burr Cells 1+; Hypochromasia 1+; Ovalocytes 1+; Schistocytes None Seen
[2025-03-04] MEDS: CEFEPIME 2 GM in SODIUM CHLORIDE 0.9% IV 50 ML 100 ML IVPB (09:34)
[2025-03-04] MEDS: VITAMIN E 1,000 UNIT CAPSULE 1000 UNIT PO (09:35)
[2025-03-04] MEDS: CYANOCOBALAMIN 1,000 MCG TABLET 2000 MCG PO (09:36)
[2025-03-04] MEDS: CALCIUM/VITAMIN D 500 MG/5 MCG (200 I.U.) TABLET PO (09:36)
[2025-03-04] MEDS: CYANOCOBALAMIN 500 MCG TABLET PO (09:36)
[2025-03-04] MEDS: guaiFENesin 12 HR 600 MG TABCR 1200 MG PO (09:37)
[2025-03-04] MEDS: SACCHAROMYCES BOULARDII 250 MG CAPSULE PO (09:37)
[2025-03-04] MEDS: ENOXAPARIN 40 MG/0.4 ML SYRINGE SUB-Q (09:38)
[2025-03-04] MEDS: CHOLECALCIFEROL (VITAMIN D3) 25 MCG (1,000 UNITS) TABLET 50 MCG PO (09:41)
--- NOTE | 2025-03-04 11:58 | PCDIET ---
Pt continues on a regular diet, Ensure TID. Pt is to be discharged on hospice care. No further nutrition recommendations.
[2025-03-04 12:00] LABS: Add Urine Microscopic? YES; Appearance Urine Clear (Clear); Glucose Urine UA Negative (Negative); Leukocyte Esterase Ur 1+ LEU/UL (Negative); Need Manual Microscopic Reviewed; Nitrate Urine Negative (Negative); Specific Grav Ur 1.018 (1.001-1.035)
--- NOTE | 2025-03-04 12:35 | P.DS_ITS ---
DS: Admitting Diagnosis Discharge Date 03/04/25 Admitting Diagnosis - pneumonia - COPD, end-stage - acute on chronic respiratory failure - hypertension DS: Discharge Diagnosis Discharge Diagnosis (1) Pneumonia: Qualifiers: Laterality: bilateral Lung location: lower lobe of lung Pneumonia type: due to unspecified organism Qualified Code(s): J18.9 - Pneumonia, unspecified organism Code(s): J18.9 - Pneumonia, unspecified organism Status: Acute (2) Acute on chronic respiratory failure with hypoxia and hypercapnia: Code(s): J96.21 - Acute and chronic respiratory failure with hypoxia; J96.22 - Acute and chronic respiratory failure with hypercapnia Status: Acute (3) Cerebral amyloid angiopathy: Code(s): E85.4 - Organ-limited amyloidosis; I68.0 - Cerebral amyloid angiopathy Status: Chronic (4) COPD (chronic obstructive pulmonary disease): Qualifiers: COPD type: unspecified COPD Qualified Code(s): J44.9 - Chronic obstructive pulmonary disease, unspecified Code(s): J44.9 - Chronic obstructive pulmonary disease, unspecified Status: Chronic (5) HTN (hypertension): Qualifiers: Hypertension type: primary hypertension Qualified Code(s): I10 - Essential (primary) hypertension Code(s): I10 - Essential (primary) hypertension Status: Chronic (6) Hydronephrosis, right: Code(s): N13.30 - Unspecified hydronephrosis Status: Acute DS: Summary Hospital Course Reason for hospitalization: - pneumonia - COPD, end-stage - acute on chronic respiratory failure - hypertension Hospital Course: 79-year-old female with a past medical history of see brawl amyloid angiopathy, HTN, 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 Labs with WBC 5.1, baseline anemia. Sodium 131, chloride 87, carbon dioxide > 40, creatinine 0.43. UA with 1+ ketones and no signs of infection. MRSA swab negative. Head CT reveals no acute hemorrhage, small lacunar infarct in the left caudate of indeterminate age, probable chronic ischemic white matter changes. Chest x-ray with bilateral pneumonia appearing progressed compared to the previous study. Patient was admitted for further evaluation and management. Upon admission, pulmonology was consulted. Due to concerns for recurrent pneumonia, antibiotics were switched to IV cefepime. An ABG was obtained which showed acute on chronic respiratory acidosis. During her hospitalization she intermittently required BiPAP due to recurrent respiratory acidosis and confusion. Patient ultimately elected to pursue comfort care measures and discharge home with hospice. On day of discharge, patient complained of dysuria. UA only showing 1+ leuks. Discharge home with additional 5 days of Levaquin which will cover for pneumonia and UTI. Will follow urine culture results on discharge. Patient was discharged home with hospice in guarded condition. Time Spent with Patient Time attestation: Total time spent providing and/or coordinating discharge services: Time spent: Greater than 30 minutes Exam Narrative: General: NAD, frail Eyes: EOMI ENT: neck supple Cardiovascular: Regular rate and rhythm Respiratory: Clear to auscultation bilaterally, respirations even and unlabored on 2L NC Gastrointestinal: Soft, non tender Genitourinary: no suprapubic tenderness Musculoskeletal: No edema Skin: warm, dry Neuro: Alert and oriented x4. Psych: anxious DS: Data Data Completed and Pending Completed studies during hospitalization: ITS Impressions Head CT 02/26/25 09:49 IMPRESSION: 1. No acute intracranial hemorrhage. No mass effect. 2. Small lacunar infarction in the left caudate of indeterminate age. Consider a brain MRI 3. Probable chronic ischemic white matter change. If symptoms persist or worsen, consider a short-term follow-up study or ad ditional imaging for further assessment. Chest X-Ray 02/26/25 09:54 Impression: Bilateral pneumonia. The findings appear progressed compared to the previous study Brain MRI 02/26/25 15:47 IMPRESSION: 1. No acute intracranial process. 2. 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 3. A few unchanged scattered foci of old microhemorrhage in the cerebrum most typically seen with hypertension or amyloid angiopathy. 4. Indeterminate 2.3 x 1.8 x 0.5 cm flap pedunculated lesion arising from the left parietal scalp. Correlate with physical exam. Chest CT 02/27/25 10:35 IMPRESSION: 1. No significant interval change in multifocal pneumonia in the bilateral upper lobes and lingula. 2. New small bilateral posterior layering pleural effusions. 3. Interval resolution of prior right middle lobe collapse. 4. Severe emphysema. 5. Right-sided nephrolithiasis with mild right hydronephrosis. Consider further evaluation with CT of the abdomen and pelvis to assess for more distal obstructing stone or mass. Abdomen/Pelvis CT 02/28/25 09:55 IMPRESSION: 1. Chronic mild right hydronephrosis, stable from 02/08/17. 2. Nonobstructing right kidney stones. 3. Severe emphysema. 4. Small pleural effusions. Chest X-Ray 03/02/25 16:04 Impression: Bilateral pneumonia superimposed on chronic lung disease Pending studies at discharge: - urine culture Labs on day of discharge: Labs from last 24 hours 03/04/25 03/04/25 02/28/25 11:27 04:05 06:45 WBC 4.7 RBC 3.36 L Hgb 9.3 L Hct 32.3 L MCV 96.1 MCH 27.7 MCHC 28.8 L RDW 15.8 H Plt Count 158 MPV 8.9 Immature Gran % (Auto) 0.4 Neut % (Auto) 63.2 Lymph % (Auto) 20.8 [place] % (Auto) 10.7 H Eos % (Auto) 4.5 H Baso % (Auto) 0.4 Lymph # (Auto) 0.97 [place] # (Auto) 0.5 Eos # (Auto) 0.2 Baso # (Auto) 0.0 Abs Immat Gran (auto) 0.02 Absolute Neuts (auto) 2.9 Absolute Nucleated RBC 0.000 Band Neutrophils % Not Reportable Nucleated RBC % 0.0 Platelet Estimate Adequate Hypochromasia 1+ Anisocytosis 1+ Ovalocytes 1+ [place] Cells 1+ Schistocytes None seen Urine Color Yellow Urine Appearance Clear Urine pH 7.5 Ur Specific [place] 1.018 Urine Protein Negative Urine Glucose (UA) Negative Urine Ketones Negative Ur Blood (Man) Negative Urine Nitrate Negative Urine Bilirubin Negative Urine Urobilinogen 0.2 Add Ur Microanalysis Reviewed Leukocyte Esterase Rfl 1+ H Urine RBC 0-2 Urine WBC 0-5 Ur Squamous Epith Cells Occasional Urine Bacteria None seen Urine Casts 3-5 M.pneumoniae IgM Titer <770 TB Test (QFT) Gold Plus Negative TB (QFT) Incubation TB Test (QFT) Nil 0.05 TB Test (QFT) Mitogen >10.00 TB Test (QFT) +TB1 -NIL 0.06 TB Test (QFT) +TB2 -NIL 0.06 TB Test (QFT) Criteria Comment Preliminary micro results at discharge 03/01/25 02:11 Sputum Culture - Preliminary Sputum 02/27/25 13:39 Specimen Source - Preliminary Urine - Urine Streptococcus pneumoniae Ag Screen - Preliminary Sterile Body Fluid Culture - Preliminary Organism Identification - Preliminary 02/26/25 10:09 Blood Culture - Preliminary Blood 02/26/25 10:43 Blood Culture - Preliminary Blood Discharge Plan Discharge Attending physician on discharge: Travis Betancourt Oca Consulting providers: Josie Valdes; Julieth Mathew; Ralph Queen Discharging Clinician: Josie Valdes Anticipated Discharge Date/Time: 03/04/25 12:28 Patient Disposition: Hospice - Home Activity: as tolerated Diet: as tolerated Discharge Instructions: You are being discharged home with hospice care for advanced COPD. Hospice will help you focus on comfort and quality of life. You are also being treated for pneumonia and a urinary tract infection with levofloxacin (an antibiotic). What to expect from hospice: * Hospice staff will visit you at home to help manage symptoms like shortness of breath, cough, and anxiety. They will provide emotional support and help with medications and equipment. * The goal is to keep you comfortable and honor your wishes about care and place of . Levofloxacin instructions: * Take levofloxacin exactly as prescribed, at the same time each day. It can be taken with or without food. Drink plenty of fluids while taking this medicine. * Do not skip doses or stop early, even if you feel better, unless your hospice nurse or doctor tells you to. This helps prevent the infection from coming back or getting worse. * If you take antacids (like Tums), iron, or multivitamins with zinc, take them at least two hours before or after levofloxacin. * Watch for side effects: nausea, diarrhea, rash, tendon pain, or muscle weakness. Stop the medicine and call hospice if you notice swelling, trouble breathing, or a skin rash. * Antibiotics may help with infection symptoms, but sometimes they may not improve comfort at the end of life. Let hospice know if you have questions about continuing antibiotics. Symptom management: * Use oxygen and inhalers as directed for shortness of breath. * Let hospice know if you have pain, trouble breathing, or new symptoms. They can adjust your medications to help you feel better.[1] Advance care planning: * Talk with your family and hospice team about your wishes for care, including resuscitation and other treatments. Hospice can help with these discussions. When to call hospice: * If you have trouble breathing, chest pain, confusion, severe weakness, or any new or concerning symptoms. * If you have questions about your medications or care. Other important notes: * Keep all medications in a safe place. * Hospice is available 21/11 for support and emergencies. Your comfort and wishes are the top priority. Hospice is here to help you and your family every step of the way. Patient Language: Serbian Stand Alone Forms: General Discharge Information Discharge Medications: New levofloxacin 750 mg tablet 750 mg PO DAILY Qty: 5 0RF Continued calcium carbonate-vitamin D3 [Calcium 600 + D(3)] 600 mg calcium- 200 unit Capsule 1 cap PO DAILY amlodipine 5 mg tablet 5 mg PO DAILY cyanocobalamin (vitamin B-12) 2,500 mcg tablet,chewable 2,500 mcg PO DAILY vitamin E (dl, acetate) 450 mg (1,000 unit) capsule 450 mg PO DAILY albuterol sulfate 90 mcg/actuation HFA aerosol inhaler 2 puff INHALATION QID PRN (Reason: Shortness Of Breath) Qty: 8.5 6RF cholecalciferol (vitamin D3) 50 mcg (2,000 unit) Tablet 50 mcg PO DAILY ipratropium-albuterol 0.5 mg-3 mg(2.5 mg base)/3 mL Solution For Nebulization 3 ml inhalation [id number] Qty: 90 0RF docusate sodium 100 mg Capsule 100 mg PO Q12H PRN (Reason: Constipation) Qty: 30 0RF Artificial Tears(cm-[id number]) 1-0.2-0.2 % Drops 1 drp EACH EYE QID PRN (Reason: Dry Eye(S)) Qty: 5 0RF glycopyrrolate-formoterol 9-4.8 mcg HFA aerosol inhaler 2 puff inhalation BID Qty: 10.7 6RF guaifenesin [Mucus Relief ER] 600 mg tablet extended release 12hr 1,200 mg PO Q12HR Qty: 60 6RF Discontinued azithromycin 250 mg tablet 250 mg PO .COMPLEX Patient Comments: Z-Pack Rx Instructions: 250 mg orally Z-Pack amoxicillin-pot clavulanate 875-125 mg tablet 1 tablet PO Q12H Patient Comments: for 5 days - Started 02/25/25 Date of admission: 02/26/25 11:53 Primary Care Provider: Vijay Conroy Admitting Provider: Anastacio Domingo Attending physician on admission: Anastacio Domingo Condition: Guarded Prognosis
--- NOTE | 2025-03-04 14:41 | PC.NURSE ---
On 03/04/25, the student, [Rupesh Flores ], provided care and completed [facility] documentation on this patient. I have reviewed the student's documentation and agree with the findings.
== END 2025-03-04 14:30 | disposition hospice, home (50) | DRG 193 ==
LOC: ANHED 11:54 → ANH3MEDSUR 12:32 → ANHIMU 02-28 07:39 → ANH3MEDSUR 03-05 10:34 → ANHIMU 03-05 10:34
PROVIDERS: Internal Medicine Pulmonary Disease; Nurse Practitioner Adult Health; Admitting Provider Internal Medicine; Emergency Provider Nurse Practitioner Family; PCP Family Medicine; Visit Provider Physician Assistant
DX: J18.9 Pneumonia, unspecified organism (principal); E43 Unspecified severe protein-calorie malnutrition; J96.21 Acute and chronic respiratory failure with hypoxia; J96.22 Acute and chronic respiratory failure with hypercapnia; J44.0 Chronic obstructive pulmonary disease with (acute) lower respiratory infection; E85.4 Organ-limited amyloidosis; N13.6 Pyonephrosis; I68.0 Cerebral amyloid angiopathy; H40.9 Unspecified glaucoma; F41.9 Anxiety disorder, unspecified; D64.9 Anemia, unspecified; Z66 Do not resuscitate; Z20.822 Contact with and (suspected) exposure to COVID-19; Z51.5 Encounter for palliative care; Z68.21 Body mass index [BMI] 21.0-21.9, adult; Z90.12 Acquired absence of left breast and nipple; Z87.891 Personal history of nicotine dependence; Z99.81 Dependence on supplemental oxygen; Z85.3 Personal history of malignant neoplasm of breast; Z79.2 Long term (current) use of antibiotics; Z91.81 History of falling; Z86.16 Personal history of COVID-19
CPT/HCPCS: 36415; 36600; 70450; 70553; 71045; 71046; 71250; 74176; 80053; 81001; 81003; 82375; 82805; 83050; 83605; 83880; 84145; 84439; 84443; 85018; 85025; 86140; 86480; 86738; 87040; 87070; 87086; 87186; 87205; 87449; 87637; 87641; 87899; 94002; 94003; 94640; 94762; 96365; 96367; 96368; 97162; 97166; 97530; 97535; 99285; A9270; A9577; J0456; J0692; J0696; J1650; J2543; J7030; J7050